=== PATIENT | male | born 1940 | race Caucasian/White ===

== ENCOUNTER 2018-01-27 15:38 | Inpatient (IN) | payer MEDICARE ==
[2018-01-27] MEDS ORDERED: HEPARIN SODIUM,PORCINE 5,000 UNIT/ML 1 ML VIAL IV ONE (23:05)
[2018-01-27 23:44] LABS: Basophils % (A) 0 %; Eosinophils # (A) 0.2 k/uL (0-0.7); Eosinophils % (A) 4 %; HCT 35.1 % (39.0-53.0); HGB 11.4 gm/dL (13.0-17.5); Hypochromasia Slight; Lymphocytes # (A) 0.7 k/uL (1.0-4.8); Lymphocytes % (A) 11 %; MCH 29.1 pg (25.0-35.0); MCHC 32.3 g/dL (31.0-37.0); Monocytes # (A) 0.5 k/uL (0-1.0); Monocytes % (A) 8 %; Neutrophils # (A) 4.8 k/uL (1.3-7.7); Neutrophils % (A) 75 %; Platelet Count 159 k/uL (150-450); RDW 14.3 % (11.5-15.5); WBC 6.4 k/uL (3.8-10.6)
[2018-01-28] MEDS: HEPARIN SODIUM,PORCINE/D5W PMX 25,000 UNIT in DEXTROSE/WATER 1 500ML.BAG IV SCH ×2 (00:13→17:33)
[2018-01-28] MEDS ORDERED: ALBUTEROL NEBULIZED 2.5 MG/3 ML INHALATION PRN (02:30)
[2018-01-28] MEDS ORDERED: ACETAMINOPHEN TAB 325 MG TAB PO PRN (02:36)
[2018-01-28] MEDS ORDERED: MAGNESIUM HYDROXIDE 2,400 MG/10 ML CUP PO PRN (02:37)
[2018-01-28] MEDS ORDERED: CALCIUM CARBONATE 500 MG CHEWABLE PO PRN (02:37)
[2018-01-28] MEDS: INSULIN ASPART 100 UNIT/ML 1 ML 10 ML VIAL SQ SCH ×4 (06:35→21:07)
[2018-01-28 06:44] LABS: Glucose,Whole Blood 134 mg/dL (75-99)
[2018-01-28 06:51] LABS: Basophils % (A) 0 %; Eosinophils # (A) 0.3 k/uL (0-0.7); Eosinophils % (A) 4 %; HCT 36.7 % (39.0-53.0); HGB 11.7 gm/dL (13.0-17.5); Lymphocytes # (A) 0.6 k/uL (1.0-4.8); Lymphocytes % (A) 9 %; MCH 28.1 pg (25.0-35.0); MCHC 31.8 g/dL (31.0-37.0); MCV 88.5 fL (80.0-100.0); Mean Platelet Volume 7.5; Monocytes # (A) 0.5 k/uL (0-1.0); Monocytes % (A) 8 %; Neutrophils # (A) 5.4 k/uL (1.3-7.7); Neutrophils % (A) 78 %; Platelet Count 174 k/uL (150-450); RBC 4.15 m/uL (4.30-5.90); RDW 14.1 % (11.5-15.5)
[2018-01-28 06:58] LABS: INR 1.1 (<1.2); Partial Thromboplastin Time 35.7 sec (22.0-30.0); Prothrombin Time 10.9 sec (9.0-12.0)
[2018-01-28 07:00] LABS: ALT 47 U/L (21-72); AST 28 U/L (17-59); Albumin 3.5 g/dL (3.5-5.0); Alkaline Phosphatase 84 U/L (38-126); Anion Gap 13 mmol/L; Blood Urea Nitrogen 14 mg/dL (9-20); Calcium 8.9 mg/dL (8.4-10.2); Carbon Dioxide 22 mmol/L (22-30); Chloride 107 mmol/L (98-107); Glucose 137 mg/dL (74-99); Potassium 4.2 mmol/L (3.5-5.1); Sodium 142 mmol/L (137-145); Total Bilirubin 1.6 mg/dL (0.2-1.3); Total Protein 6.1 g/dL (6.3-8.2)
[2018-01-28] MEDS: HEPARIN SODIUM,PORCINE 5,000 UNIT/ML 1 ML VIAL IV PRN ×2 (07:03→13:30)
[2018-01-28] MEDS ORDERED: MD COMMUNICATION TO PHARMACY 1 EACH MISC PO ONE ×2 (08:27)
[2018-01-28] MEDS: ISOSORBIDE MONONITRATE ER 30 MG TAB.ER.24H PO SCH (08:28)
[2018-01-28] MEDS: LINAGLIPTIN 5 MG TABLET PO SCH (08:28)
[2018-01-28] MEDS: FAMOTIDINE 20 MG TAB PO SCH (08:28)
[2018-01-28] MEDS: FUROSEMIDE 40 MG TAB PO SCH (08:28)
[2018-01-28] MEDS: ATORVASTATIN 40 MG TAB PO SCH (08:28)
[2018-01-28] MEDS: ASPIRIN 81 MG PO SCH (08:28)
[2018-01-28] MEDS: METOPROLOL SUCCINATE (ER) 50 MG TAB.ER.24H PO SCH (08:28)
[2018-01-28] MEDS: LISINOPRIL 10 MG TAB PO SCH ×2 (08:28→20:13)
[2018-01-28 09:53] LABS: Magnesium 1.7 mg/dL (1.6-2.3)
--- NOTE | 2018-01-28 10:40 | P.GSCN ---
History of Present Illness Consult date: 01/28/18 Reason for Consult: Coronary artery disease, moderate to severe mitral valve regurgitation. Evaluate for myocardial revascularization and mitral valve repair/replacement surgery. Requesting physician: Maximino Fernando History of present illness: This is a 77-year-old gentleman who is followed by Dr. Robledo on an outpatient basis. 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 Over the last 3 months the patient has had complaints of shortness of breath with activity. During the cold weather he reports that the shortness of breath is worse and he gets episodes of dry heaves. On 01/21/2018 after eating cucumber he developed an episode of chest pain. The chest pain was associated with some shortness of breath, which became worse throughout the day and he felt he needed to seek medical assistance. He denies any vomiting, sweating, dizziness, or loss of bowel or bladder function. On presentation to the emergency department a 12-lead EKG was completed which showed him to be in atrial fibrillation with RVR. His labs demonstrated a troponin less than 0.017 , BNP 965, WBC count 12.9, hemoglobin 12.4, and a creatinine level of 1.01. A 2 -D echocardiogram was completed which showed severe central mitral valve regurgitation, a left ventricular to be dilated with an ejection fraction of around 50-55% and mild tricuspid valve regurgitation. Subsequently due to his presenting symptoms and history of coronary artery disease the patient underwent a heart catheterization on 01/26/2018 which demonstrated a 60-70% stenosis involving his circumflex coronary artery, and 80% stenosis of his right coronary artery, and mild nonobstructive coronary artery disease to his left anterior descending coronary artery. Also during heart catheterization a left ventriculogram was completed which showed him to have an ejection fraction around 50-55% with severe mitral valve regurgitation. Due to the patient's presenting symptoms, history of coronary artery disease and his cardiac catheterization results a consult was placed to Dr. Fabricio Spicer from cardiothoracic surgery. Review of Systems A 14 point review of system was completed and was negative except as mentioned in the HPI. 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.), COPD , Diabetes Mellitus, Eye Disorder (Cataracts), GI Bleed (History of GI bleed, received blood products.), Hyperlipidemia, Hypertension, Osteoarthritis (OA), Prostate Disorder Additional Past Medical History / Comment(s): New onset of afib since admission to [facility] on 01/21/18 History of Any Multi-Drug Resistant Organisms: None Reported Past Surgical History: Heart Catheterization, Heart Catheterization With Stent, Joint Replacement, Orthopedic Surgery, Tonsillectomy Additional Past Surgical History / Comment(s): Right shoulder surgery, left knee replacement, colonoscopy with polypectomy, skin biopsy, cardiac stents X2 Past Anesthesia/Blood Transfusion Reactions: No Reported Reaction Date of Last Stent Placement:: unknown Past Psychological History: No Psychological Hx Reported Smoking Status: Former smoker (Quit 20 years ago.) Past Alcohol Use History: Rare (Maybe drinks one 6 pack of beer per year. ) Past Drug Use History: None Reported - Past Family History Mother Family Medical History: Asthma, COPD Father Family Medical History: Myocardial Infarction ([place]) (Myocardial infarction in his 50s.) Medications and Allergies Home Medications Medication Instructions Recorded Confirmed Type Atorvastatin [Lipitor] 40 mg PO HS 01/27/18 01/27/18 History Benazepril HCl 10 mg PO HS 01/27/18 01/27/18 History Cholecalciferol (Vitamin D3) 2,000 unit PO HS 01/27/18 01/27/18 History [Vitamin D3] Magnesium Oxide [Mag-Ox] 400 mg PO 01/27/18 01/27/18 History Metoprolol Succinate (ER) [Toprol 50 mg PO HS 01/27/18 01/27/18 History Xl] Tamsulosin [Flomax] 0.8 mg PO HS 01/27/18 01/27/18 History glipiZIDE/METFORMIN HCL 2 tab PO HS 01/27/18 01/27/18 History [glipiZIDE/METFORMIN HCL 2.5-500 mg] sitaGLIPtin [Januvia] 100 mg PO HS 01/27/18 01/27/18 History Allergies Allergy/AdvReac Type Severity Reaction Status Date / Time No Known Allergies Allergy Verified 01/27/18 23:01 Surgical - Exam Vital Signs Temp Pulse Resp BP Pulse Ox 97.5 F L 79 18 148/72 97 01/27/18 22:11 01/27/18 22:11 01/27/18 22:11 01/27/18 22:11 01/27/18 22:11 - General well developed, well nourished, no distress, no pain, obese - Eyes PERRL, normal ocular movement - ENT normal pinna, normal nares, normal mucosa, no hearing loss, no congestion, poor half-way, dentures (Partials.) - Neck No lymphadenopathy, neck is supple. no masses, no bruits, trachea midline, no venous distension - Respiratory Lung sounds essentially clear throughout, diminished was bilateral bases. Respirations are symmetrical and nonlabored. Oxygen saturation on room air are 97%. - Cardiovascular Regular rhythm and rate. S1 and S2 present, murmur present 2/6 to his left sternal border fifth intercostal space. Remote telemetry showing atrial fibrillation heart rate 80. No edema present. - Abdomen Abdomen soft, nontender nondistended. Active bowel sounds all 4 abdominal quadrants. No organomegaly. No guarding or rigidity. - Genitourinary Deferred - Rectum deferred - Integumentary no rash, no growths, no abnormal pigmentation - Neurologic normal coordination, normal sensation - Musculoskeletal normal gait, normal posture - Psychiatric oriented to time, oriented to person, oriented to place, speech is normal, memory intact Results - Labs 01/28/18 06:10 01/28/18 06:10 Abnormal Lab Results - Last 24 Hours (Table) 01/27/18 01/28/18 01/28/18 Range/Units 23:25 06:10 06:10 RBC 3.90 L 4.15 L (4.30-5.90) m/uL Hgb 11.4 L 11.7 L (13.0-17.5) gm/dL Hct 35.1 L 36.7 L (39.0-53.0) % Lymphocytes # 0.7 L 0.6 L (1.0-4.8) k/uL APTT 35.7 H (22.0-30.0) sec Glucose (74-99) mg/dL POC Glucose (mg/dL) (75-99) mg/dL Total Bilirubin (0.2-1.3) mg/dL Total Protein (6.3-8.2) g/dL 01/28/18 01/28/18 Range/Units 06:10 06:33 RBC (4.30-5.90) m/uL Hgb (13.0-17.5) gm/dL Hct (39.0-53.0) % Lymphocytes # (1.0-4.8) k/uL APTT (22.0-30.0) sec Glucose 137 H (74-99) mg/dL POC Glucose (mg/dL) 134 H (75-99) mg/dL Total Bilirubin 1.6 H (0.2-1.3) mg/dL Total Protein 6.1 L (6.3-8.2) g/dL Diabetes panel 01/28/18 Range/Units 06:10 Sodium 142 (137-145) mmol/L Potassium 4.2 (3.5-5.1) mmol/L Chloride 107 (98-107) mmol/L Carbon Dioxide 22 (22-30) mmol/L BUN 14 (9-20) mg/dL Creatinine 0.73 (0.66-1.25) mg/dL Glucose 137 H (74-99) mg/dL Calcium 8.9 (8.4-10.2) mg/dL AST 28 (17-59) U/L ALT 47 (21-72) U/L Alkaline Phosphatase 84 (38-126) U/L Total Protein 6.1 L (6.3-8.2) g/dL Albumin 3.5 (3.5-5.0) g/dL Calcium panel 01/28/18 Range/Units 06:10 Calcium 8.9 (8.4-10.2) mg/dL Albumin 3.5 (3.5-5.0) g/dL Pituitary panel 01/28/18 Range/Units 06:10 Sodium 142 (137-145) mmol/L Potassium 4.2 (3.5-5.1) mmol/L Chloride 107 (98-107) mmol/L Carbon Dioxide 22 (22-30) mmol/L BUN 14 (9-20) mg/dL Creatinine 0.73 (0.66-1.25) mg/dL Glucose 137 H (74-99) mg/dL Calcium 8.9 (8.4-10.2) mg/dL Adrenal panel 01/28/18 Range/Units 06:10 Sodium 142 (137-145) mmol/L Potassium 4.2 (3.5-5.1) mmol/L Chloride 107 (98-107) mmol/L Carbon Dioxide 22 (22-30) mmol/L BUN 14 (9-20) mg/dL Creatinine 0.73 (0.66-1.25) mg/dL Glucose 137 H (74-99) mg/dL Calcium 8.9 (8.4-10.2) mg/dL Total Bilirubin 1.6 H (0.2-1.3) mg/dL AST 28 (17-59) U/L ALT 47 (21-72) U/L Alkaline Phosphatase 84 (38-126) U/L Total Protein 6.1 L (6.3-8.2) g/dL Albumin 3.5 (3.5-5.0) g/dL - Imaging Additional studies: Cardiac catheterization films, 2-D echocardiogram films and PATTIE films were reviewed by Dr. Juice Koehler. Assessment and Plan (1) Hypertension Current Visit: Yes Status: Acute Code(s): I10 - ESSENTIAL (PRIMARY) HYPERTENSION SNOMED Code(s): 35477660 (2) Hyperlipidemia Current Visit: Yes Status: Acute Code(s): E78.5 - HYPERLIPIDEMIA, UNSPECIFIED SNOMED Code(s): 37680525 (3) Presence of stent in coronary artery in patient with coronary artery disease Current Visit: Yes Status: Acute Code(s): I25.10 - ATHSCL HEART DISEASE OF [place] CORONARY ARTERY W/O ANG PCTRS; Z95.5 - PRESENCE OF CORONARY ANGIOPLASTY IMPLANT AND GRAFT SNOMED Code(s): 819035592 (4) Severe mitral regurgitation by prior echocardiogram Current Visit: Yes Status: Acute Code(s): I34.0 - NONRHEUMATIC MITRAL (VALVE ) INSUFFICIENCY SNOMED Code(s): 23391650 (5) Diabetes mellitus type 2 in obese Current Visit: Yes Status: Acute Code(s): E11.69 - TYPE 2 DIABETES MELLITUS WITH OTHER SPECIFIED COMPLICATION; E66.9 - OBESITY, UNSPECIFIED SNOMED Code(s) : 06067158 (6) Enlarged prostate Current Visit: Yes Status: Acute Code(s): N40.0 - BENIGN PROSTATIC HYPERPLASIA WITHOUT LOWER URINRY TRACT SYMP SNOMED Code(s): 552851012 (7) Personal history of nicotine dependence Current Visit: Yes Status: Acute Code(s): Z87.891 - PERSONAL HISTORY OF NICOTINE DEPENDENCE SNOMED Code(s): 30986093 (8) Asthma Current Visit: Yes Status: Acute Code(s): J45.909 - UNSPECIFIED ASTHMA, UNCOMPLICATED SNOMED Code(s): 345538776 (9) COPD (chronic obstructive pulmonary disease) Current Visit: Yes Status: Acute Code(s): J44.9 - CHRONIC OBSTRUCTIVE PULMONARY DISEASE, UNSPECIFIED SNOMED Code(s): 34067879 Plan: The patient was seen and examined. His chart and diagnostics were reviewed. He was seen and examined by Dr. Juice Koehler from cardiothoracic surgery. Preoperative teaching was initiated. Preoperative diagnostics ordered. Continue to maximize medical therapy, continue aspirin, statin, heparin drip, James inhibitor and beta lencho. After his preoperative diagnostics have been obtained and reviewed, they will be discussed with the patient and he will be scheduled for myocardial revascularization with mitral valve repair/replacement. Thank you Dr. Fernando for this consult and we look forward to working with you in the care of your patient. Time with Patient: Greater than 30
--- NOTE | 2018-01-28 10:52 | P.CNPUL ---
History of Present Illness Consult date: 01/28/18 Requesting physician: Radha Welsh Reason for consult: COPD Chief complaint: SOB History of present illness: Bird Maria~is a 77 y.o.~male~~being seen examined and evaluated today for consultation. This patient was admitted to the [facility] on 01/21/18-after coming in with complaints of dyspnea with no relief from his inhaler and having significant chest pressure. Patient was found to be in A. fib with RVR and was started on a heparin drip. Patient did have an echocardiogram which revealed an EF of 55% with severe mitral regurg is RVSP P was 53 mmHg. He also had a Karlee scan stress test that was also abnormal and a PATTIE with heart catheter, please see those notes for details. Currently the patient was transfered to [facility] on 01/27/18 for a CABG and mitral valve replacement. Upon examination the patient's resting up in bed on room air. He denies any shortness of breath cough or congestion at this time. He denies any smoking history however did state that he did chew tobacco on occasion. He denies any episodes of snoring however states that his sleep each night is very restless and he wakes up a minimum of 6 times per night. The patient has never had a workup for obstructive sleep apnea. Patient also states that he has had 2 previous surgeries 1 on his knee and shoulders and had no problems with anesthesiology, or waking up from surgery. Education has been provided to the patient on the extent of the surgery as well as education on mechanical ventilation intubation and extubation with possible best case scenario outcomes and worst-case scenario comes. Patient verbalizes understanding. Review of Systems 14 point review of systems was completed and is negative unless noted above in the HPI. 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.), COPD , Diabetes Mellitus, Eye Disorder (Cataracts), GI Bleed (History of GI bleed, received blood products.), Hyperlipidemia, Hypertension, Osteoarthritis (OA), Prostate Disorder Additional Past Medical History / Comment(s): New onset of afib since admission to [facility] on 01/21/18 History of Any Multi-Drug Resistant Organisms: None Reported Past Surgical History: Heart Catheterization, Heart Catheterization With Stent, Joint Replacement, Orthopedic Surgery, Tonsillectomy Additional Past Surgical History / Comment(s): Right shoulder surgery, left knee replacement, colonoscopy with polypectomy, skin biopsy, cardiac stents X2 Past Anesthesia/Blood Transfusion Reactions: No Reported Reaction Date of Last Stent Placement:: unknown Past Psychological History: No Psychological Hx Reported Smoking Status: Former smoker (Quit 20 years ago.) Past Alcohol Use History: Rare (Maybe drinks one 6 pack of beer per year. ) Past Drug Use History: None Reported - Past Family History Mother Family Medical History: Asthma, COPD Father Family Medical History: Myocardial Infarction ([place]) (Myocardial infarction in his 50s.) Medications and Allergies Home Medications Medication Instructions Recorded Confirmed Type Atorvastatin [Lipitor] 40 mg PO HS 01/27/18 01/27/18 History Benazepril HCl 10 mg PO HS 01/27/18 01/27/18 History Cholecalciferol (Vitamin D3) 2,000 unit PO HS 01/27/18 01/27/18 History [Vitamin D3] Magnesium Oxide [Mag-Ox] 400 mg PO HS 01/27/18 01/27/18 History Metoprolol Succinate (ER) [Toprol 50 mg PO HS 01/27/18 01/27/18 History Xl] Tamsulosin [Flomax] 0.8 mg PO HS 01/27/18 01/27/18 History glipiZIDE/METFORMIN HCL 2 tab PO HS 01/27/18 01/27/18 History [glipiZIDE/METFORMIN HCL 2.5-500 mg] sitaGLIPtin [Januvia] 100 mg PO 01/27/18 01/27/18 History Allergies Allergy/AdvReac Type Severity Reaction Status Date / Time No Known Allergies Allergy Verified 01/27/18 23:01 Physical Exam Vitals: Vital Signs Temp Pulse Resp BP Pulse Ox 01/28/18 08:00 97.4 F L 90 18 122/70 97 01/28/18 04:00 97.3 F L 92 18 119/67 95 01/28/18 00:10 97.0 F L 63 18 122/73 97 01/27/18 22:11 97.5 F L 79 18 148/72 97 Intake and Output 01/27/18 01/28/18 01/28/18 22:59 06:59 14:59 Intake Total 350.013 Balance 350.013 Intake: Intake, IV Titration 170.013 Amount Heparin Sodium,Porcine/ 170.013 D5w Pmx 25,000 unit In Dextrose/Water 1 500ml. bag @ 12 UNITS/KG/HR 24. 88 mls/hr IV .Q20H6M SHAUNA Rx#:[id number] Oral 180 Other: Voiding Method Toilet Toilet # Voids 1 1 Weight 103.7 kg 103.1 kg CONSTITUTIONAL: Patient is seen in no acute distress HEENT: Head is normocephalic, atraumatic. Pupils are equal, conjunctiva clear. Neck is supple, trachea is midline. No JVD. RESPIRATORY: ~Lungs clear to auscultation. No wheezes, rales or rhonchi appreciated. Respirations are even and unlabored. CARDIOVASCULAR: ~Heart is irregular rate and rhythm. S1 and S2 are heard. No murmur. ~~~ GASTROINTESTINAL: ~Abdomen is soft, nontender, nondistended. Bowel sounds are positive. EXTREMITIES: ~No lower extremity edema is noted. Pedal pulses are palpable bilaterally. NEUROLOGICAL: ~Patient is alert and oriented 3. Speech is clear and interactive. No tremor is noted. Results - Laboratory Findings CBC and BMP: 01/28/18 06:10 01/28/18 06:10 PT/INR, D-dimer PT 10.9 sec (9.0-12.0) 01/28/18 06:10 INR 1.1 (<1.2) 01/28/18 06:10 Abnormal lab findings: Abnormal Labs 01/27/18 01/28/18 01/28/18 23:25 06:10 06:10 RBC 3.90 L 4.15 L Hgb 11.4 L 11.7 L Hct 35.1 L 36.7 L Lymphocytes # 0.7 L 0.6 L APTT 35.7 H Glucose POC Glucose (mg/dL) Total Bilirubin Total Protein HDL Cholesterol 01/28/18 01/28/18 01/28/18 06:10 06:33 08:58 RBC Hgb Hct Lymphocytes # APTT Glucose 137 H POC Glucose (mg/dL) 134 H Total Bilirubin 1.6 H Total Protein 6.1 L HDL Cholesterol 37 L Assessment and Plan Assessment: Assessment: Chest pain Severe mitral regurgitation CAD 80-90% stenosis of his right coronary artery 60-70% stenosis of the AV circumflex COPD Possible GHULAM Diabetes mellitus type 2 Hyperlipidemia Plan: Swathi Borrero reviewed from [facility] reviewed, suggestive of restrictive lung disease, however, without lung volumes and full PFT cannot definitively diagnose. ~Outpatient PFT and PSG recommended. ~Incentive spirometry and pulmonary hygiene. Medications have been reviewed and will be continued as ordered. Patient is currently on a heparin drip. Supplemental oxygen to maintain oxygen saturations greater than 90% if needed. GI and DVT prophylaxis. Patient will also benefit from an outpatient PSG once medically stable and discharged from the hospital. We will continue to monitor labs/results and adjust treatment as necessary. Thank you for this consultation we will continue to follow this patient with you. I performed an examination of the patient and discussed their management with the nurse practitioner. I have reviewed the nurse practitioner's note and agree with the documented findings and plan of care.
[2018-01-28 11:32] LABS: Glucose,Whole Blood 183 mg/dL (75-99)
--- NOTE | 2018-01-28 12:45 | XR ---
EXAMINATION TYPE: XR chest 2V DATE OF EXAM: 01/28/2018 COMPARISON: 01/29/2010 HISTORY: Preoperative evaluation TECHNIQUE: Frontal and lateral views of the chest are obtained. FINDINGS: There is a trace right pleural effusion, developed in the interim. Cardiac silhouette is e nlarged with minimal cephalization. No pneumothorax or sizable left pleural effusion. Osseous structu res are intact. IMPRESSION: Very mild pulmonary vascular congestion and trace right pleural effusion in combination with cardiomegaly may be attributable to early phase of congestive heart failure.
[2018-01-28] MEDS: MUPIROCIN 2% OINT 22 GM TUBE NASAL SCH ×2 (12:46→22:03)
[2018-01-28 12:58] LABS: Hemoglobin A1C 7.4 % (4.0-6.0)
--- NOTE | 2018-01-28 13:16 | US ---
EXAMINATION TYPE: US carotid duplex BILAT DATE OF EXAM: 01/28/2018 COMPARISON: NONE CLINICAL HISTORY: Preoperative cardiac surgery. Pre-OP CABG EXAM MEASUREMENTS: RIGHT: Peak Systolic Velocity (PSV) cm/sec ----- Right CCA: 79.0 ----- Right ICA: 106.4 ----- Right ECA: 137.6 ICA/CCA ratio: 1.3 RIGHT: End Diastole cm/sec ----- Right CCA: 17.5 ----- Right ICA: 20.8 ----- Right ECA: 7.7 LEFT: Peak Systolic Velocity (PSV) cm/sec ----- Left CCA: 99.0 ----- Left ICA: 124.2 ----- Left ECA: 72.3 ICA/CCA ratio: 1.3 LEFT: End Diastole cm/sec ----- Left CCA: 18.4 ----- Left ICA: 20.8 ----- Left ECA: 0.0 VERTEBRALS (direction of flow): Right Vertebral: Antegrade Left Vertebral: Antegrade Rhythm: Arrhythmia Heterogeneous plaque bilaterally with slightly elevated velocities IMPRESSION: 1. Slightly elevated left internal carotid artery peak systolic velocity with moderate grayscale plaq uing suggesting stenosis of approximately 50% as there is no abnormal elevation of the internal carot id artery to common carotid artery ratio. Right external carotid artery mild stenosis is also sonogra phically present. 2. Incidentally noted cardiac arrhythmia. Correlate with EKG.
[2018-01-28] MEDS: NYSTATIN 100,000 UNIT/ML SUSP 500,000 UNIT/5 ML CUP PO SCH ×3 (13:30→20:13)
[2018-01-28 16:47] LABS: Glucose,Whole Blood 146 mg/dL (75-99)
[2018-01-28 18:15] LABS: Hepatitis A Antibody IgM Non-Reactive (Non-Reactive); Hepatitis B Core IgM Non-Reactive (Non-Reactive)
--- NOTE | 2018-01-28 18:22 | PN ---
PROGRESS NOTE This patient was transferred from [facility]. Patient has 2-vessel coronary artery disease and severe mitral regurgitation. Patient's mitral regurgitation appears to be functional; no significant primary abnormality in the mitral leaflets was noted. Patient is going to undergo coronary artery bypass surgery and mitral valve replacement or repair. Patient's blood pressure is 118/73 mmHg. First and second heart sounds are normal. There is a soft systolic murmur heard at the apex. Lungs are clinically clear to auscultation and percussion. We will continue the current medications. MMODL / IJN: [id number] /
--- NOTE | 2018-01-28 18:38 | P.HPIM ---
History of Present Illness H&P Date: 01/28/18 Chief Complaint: CABG with valvular repair This is a 69 HO pleasant gentleman patient of Dr. Cardoso with underlying history of CAD with prior PCI stent placement, hypertension hypertensive cardiovascular disease hyperlipidemia and diabetes mellitus type 2 asthma OR arthritis COPD admitted to [facility] and was found on imaging studies secondary to his chest pain new onset atrial fibrillation with RVR and shortness of breath, cardiac cath performed 01/26/2018 showing 80% stenosis of RCA, 70% stenoses of the left circumflex involving the AV groove circumflex ostial portion, severe mitral regurgitation, dilated left ventricle ejection fraction 50-55%. He was transferred to [facility] for mitral valve placement and CABG 2 vessel critical stenosis involving left circumflex and right coronary artery. CABG most likely would be anticipated to be done January 30 He was seen at [facility] by , for pulmonary clearance, pertinent laboratories creatinine 1.01 hemoglobin 12.4 TSH 0.93 hemoglobin A1c not done,. Patient currently is on basal bolus Levemir and premeal coverage, instead of home oral medication, continue on Januvia 100 mg at bedtime, cardiology to see, Dr. Marte for consult and consult to Dr. Spicer cardiothoracic, Dr. Salas cardiology. He should maintain IV heparin Review of Systems Constitutional: Reports as per HPI, Denies anorexia, Denies chills, Denies chronic headaches, Denies chronic pain, Denies daytime sleepiness, Denies fatigue, Denies fever, Denies lethargy, Denies malaise, Denies night sweats, Denies poor appetite, Denies sweats, Denies weakness, Denies weight gain, Denies weight loss Ears, nose, mouth and throat: Reports as per HPI, Denies ant. neck pain, Denies bleeding gums, Denies dental pain, Denies dysphagia, Denies epistaxis, Denies headache, Denies hoarseness, Denies mouth pain, Denies nasal congestion, Denies nasal discharge, Denies neck fullness/pressure, Denies neck lump, Denies nose pain, Denies odynophagia, Denies post-nasal drip, Denies sinus pain, Denies sinus pressure, Denies swelling in mouth, Denies swelling in throat, Denies sore throat, Denies vertigo, Denies voice changes Cardiovascular: Reports as per HPI, Denies chest pain, Denies claudication, Denies decreased exercise tolerance, Denies dyspnea on exertion, Denies edema, Denies high blood pressure, Denies irregular heart beat, Denies leg edema, Denies lightheadedness, Denies orthopnea, Denies palpitations, Denies paroxysmal nocturnal dyspnea, Denies phlebitis, Denies rapid heart beat, Denies shortness of breath, Denies syncope Respiratory: Reports as per HPI, Denies congestion, Denies cough, Denies cough with sputum, Denies dyspnea, Denies excessive sputum, Denies hemoptysis, Denies home oxygen, Denies pain, Denies pain on inspiration, Denies pleurisy, Denies respiratory infections, Denies sleep apnea, Denies snoring, Denies wheezing Gastrointestinal: Reports as per HPI, Denies abdominal pain, Denies belching, Denies bloating, Denies BRBPR, Denies change in bowel habits, Denies coffee ground emesis, Denies constipation, Denies diarrhea, Denies dyspepsia, Denies early satiety, Denies excessive gas, Denies heartburn, Denies hematemesis, Denies hematochezia, Denies indigestion, Denies jaundice, Denies lactose intolerance, Denies loss of appetite, Denies melena, Denies nausea, Denies vomiting Genitourinary: Reports as per HPI, Denies decreased libido, Denies difficulties fathering child, Denies discharge, Denies dysuria, Denies erectile dysfunction, Denies flank pain, Denies genital pain, Denies genital sores, Denies hematuria, Denies impotence, Denies incontinence, Denies kidney stones, Denies nocturia, Denies polyuria, Denies testicular lump, Denies testicular pain, Denies urinary frequency, Denies urinary hesitancy, Denies urinary retention Musculoskeletal: Reports as per HPI Integumentary: Reports as per HPI, Denies acne, Denies boils, Denies brittle nails, Denies change in hair/nails, Denies color changes, Denies darkening of skin, Denies depigmentation, Denies dryness, Denies foot/leg ulcers, Denies growths, Denies hirsutism, Denies lesions, Denies onychomycosis, Denies pruritus , Denies rash, Denies sores, Denies striae, Denies unusual bruising, Denies wounds Neurological: Reports as per HPI, Denies aphasia, Denies ataxia, Denies balance difficulties, Denies burning pain, Denies change in mentation, Denies change in smell/taste, Denies change in speech, Denies confusion, Denies convulsions, Denies double vision, Denies gait dysfunction, Denies head injury, Denies headaches, Denies hearing difficulties, Denies lack of coordination, Denies loss of vision, Denies memory loss, Denies migraines, Denies motor disturbance, Denies numbness, Denies paralysis, Denies paresthesias, Denies seizures, Denies sensory deficit, Denies spasticity, Denies syncope, Denies tic, Denies tingling , Denies transient paralysis, Denies tremors, Denies vertigo, Denies weakness, Denies visual changes Psychiatric: Reports as per HPI, Denies anhedonia, Denies anxiety, Denies anxiety attacks, Denies change in appetite, Denies change in libido, Denies change in sleep habits, Denies confusion, Denies depression, Denies difficulty concentrating, Denies disorientation, Denies hallucinations, Denies hopelessness , Denies hypersomnia, Denies insomnia, Denies irritability, Denies memory loss, Denies mood swings, Denies paranoia, Denies sadness/tearfulness, Denies sleep disturbances, Denies suicidal ideation 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.), COPD , Diabetes Mellitus, Eye Disorder (Cataracts), GI Bleed (History of GI bleed, received blood products.), Hyperlipidemia, Hypertension, Osteoarthritis (OA), Prostate Disorder Additional Past Medical History / Comment(s): New onset of afib since admission to [facility] on 01/21/18 History of Any Multi-Drug Resistant Organisms: None Reported Past Surgical History: Heart Catheterization, Heart Catheterization With Stent, Joint Replacement, Orthopedic Surgery, Tonsillectomy Additional Past Surgical History / Comment(s): Right shoulder surgery, left knee replacement, colonoscopy with polypectomy, skin biopsy, cardiac stents X2 Past Anesthesia/Blood Transfusion Reactions: No Reported Reaction Date of Last Stent Placement:: unknown Past Psychological History: No Psychological Hx Reported Smoking Status: Former smoker (Quit 20 years ago.) Past Alcohol Use History: Rare (Maybe drinks one 6 pack of beer per year. ) Past Drug Use History: None Reported - Past Family History Mother Family Medical History: Asthma, COPD Father History Unknown: Yes (Mother 76 from COPD, and diabetes mellitus type 2, father at 58 secondary to CO, one sister 89 years old, for doctors to them with diabetes mellitus type 2) Family Medical History: Myocardial Infarction (CO) (Myocardial infarction in his 50s.) Medications and Allergies Home Medications Medication Instructions Recorded Confirmed Type Atorvastatin [Lipitor] 40 mg PO HS 01/27/18 01/27/18 History Benazepril HCl 10 mg PO HS 01/27/18 01/27/18 History Cholecalciferol (Vitamin D3) 2,000 unit PO HS 01/27/18 01/27/18 History [Vitamin D3] Magnesium Oxide [Mag-Ox] 400 mg PO HS 01/27/18 01/27/18 History Metoprolol Succinate (ER) [Toprol 50 mg PO HS 01/27/18 01/27/18 History Xl] Tamsulosin [Flomax] 0.8 mg PO HS 01/27/18 01/27/18 History glipiZIDE/METFORMIN HCL 2 tab PO HS 01/27/18 01/27/18 History [glipiZIDE/METFORMIN HCL 2.5-500 mg] sitaGLIPtin [Januvia] 100 mg PO HS 01/27/18 01/27/18 History Allergies Allergy/AdvReac Type Severity Reaction Status Date / Time No Known Allergies Allergy Verified 01/27/18 23:01 Physical Exam Vitals: Vital Signs Temp Pulse Resp BP Pulse Ox 01/28/18 12:00 97.3 F L 66 16 118/73 96 01/28/18 08:00 97.4 F L 90 18 122/70 97 01/28/18 04:00 97.3 F L 92 18 119/67 95 01/28/18 00:10 97.0 F L 63 18 122/73 97 01/27/18 22:11 97.5 F L 79 18 148/72 97 Intake and Output 01/27/18 01/28/18 01/28/18 22:59 06:59 14:59 Intake Total 350.013 Balance 350.013 Intake: Intake, IV Titration 170.013 Amount Heparin Sodium,Porcine/ 170.013 D5w Pmx 25,000 unit In Dextrose/Water 1 500ml. bag @ 12 UNITS/KG/HR 24. 88 mls/hr IV .Q20H6M [facility] Rx#:[id number] Oral 180 Other: Voiding Method Toilet Toilet # Voids 1 1 Weight 103.7 kg 103.1 kg - Constitutional General appearance: cooperative, no acute distress - EENT Eyes: anicteric sclerae, EOMI, PERRLA, dentition normal, normal appearance ENT: NA/AT, normal oropharynx - Neck Neck: no lymphadenopathy, normal ROM, no other, no rigidity, no stridor, no thyromegaly - Respiratory Respiratory: bilateral: CTA, negative: diminished, dullness, rales, rhonchi - Cardiovascular Rhythm: regular Heart sounds: normal: S1, S2 Abnormal Heart Sounds: no systolic murmur, no diastolic murmur, no rub, no S3 Gallop, no S4 Gallop, no click, no other - Gastrointestinal General gastrointestinal: normal bowel sounds, soft - Integumentary Integumentary: normal, normal turgor - Neurologic Neurologic: CNII-XII intact - Musculoskeletal Musculoskeletal: gait normal, strength equal bilaterally - Psychiatric Psychiatric: A&O x's 3, appropriate affect, intact judgment & insight Results CBC & Chem 7: 01/28/18 06:10 01/28/18 06:10 Labs: Abnormal Lab Results - Last 24 Hours (Table) 01/27/18 01/28/18 01/28/18 Range/Units 23:25 06:10 06:10 RBC 3.90 L 4.15 L (4.30-5.90) m/uL Hgb 11.4 L 11.7 L (13.0-17.5) gm/dL Hct 35.1 L 36.7 L (39.0-53.0) % Lymphocytes # 0.7 L 0.6 L (1.0-4.8) k/uL APTT 35.7 H (22.0-30.0) sec Glucose (74-99) mg/dL POC Glucose (mg/dL) (75-99) mg/dL Total Bilirubin (0.2-1.3) mg/dL Total Protein (6.3-8.2) g/dL HDL Cholesterol (40-60) mg/dL 01/28/18 01/28/18 01/28/18 Range/Units 06:10 06:33 08:58 RBC (4.30-5.90) m/uL Hgb (13.0-17.5) gm/dL Hct (39.0-53.0) % Lymphocytes # (1.0-4.8) k/uL APTT (22.0-30.0) sec Glucose 137 H (74-99) mg/dL POC Glucose (mg/dL) 134 H (75-99) mg/dL Total Bilirubin 1.6 H (0.2-1.3) mg/dL Total Protein 6.1 L (6.3-8.2) g/dL HDL Cholesterol 37 L (40-60) mg/dL 01/28/18 Range/Units 11:22 RBC (4.30-5.90) m/uL Hgb (13.0-17.5) gm/dL Hct (39.0-53.0) % Lymphocytes # (1.0-4.8) k/uL APTT (22.0-30.0) sec Glucose (74-99) mg/dL POC Glucose (mg/dL) 183 H (75-99) mg/dL Total Bilirubin (0.2-1.3) mg/dL Total Protein (6.3-8.2) g/dL HDL Cholesterol (40-60) mg/dL Laboratory Results WBC 7.0 k/uL (3.8-10.6) 01/28/18 06:10 RBC 4.15 m/uL (4.30-5.90) L 01/28/18 06:10 Hgb 11.7 gm/dL (13.0-17.5) L 01/28/18 06:10 Hct 36.7 % (39.0-53.0) L 01/28/18 06:10 MCV 88.5 fL (80.0-100.0) 01/28/18 06:10 MCH 28.1 pg (25.0-35.0) 01/28/18 06:10 MCHC 31.8 g/dL (31.0-37.0) 01/28/18 06:10 RDW 14.1 % (11.5-15.5) 01/28/18 06:10 Plt Count 174 k/uL (150-450) 01/28/18 06:10 Neutrophils % 78 % 01/28/18 06:10 Lymphocytes % 9 % 01/28/18 06:10 Monocytes % 8 % 01/28/18 06:10 Eosinophils % 4 % 01/28/18 06:10 Basophils % 0 % 01/28/18 06:10 Neutrophils # 5.4 k/uL (1.3-7.7) 01/28/18 06:10 Lymphocytes # 0.6 k/uL (1.0-4.8) L 01/28/18 06:10 Monocytes # 0.5 k/uL (0-1.0) 01/28/18 06:10 Eosinophils # 0.3 k/uL (0-0.7) 01/28/18 06:10 Basophils # 0.0 k/uL (0-0.2) 01/28/18 06:10 Hypochromasia Slight 01/27/18 23:25 PT 10.9 sec (9.0-12.0) 01/28/18 06:10 INR 1.1 (<1.2) 01/28/18 06:10 APTT 43.1 sec (22.0-30.0) H 01/28/18 12:51 Sodium 142 mmol/L (137-145) 01/28/18 06:10 Potassium 4.2 mmol/L (3.5-5.1) 01/28/18 06:10 Chloride 107 mmol/L (98-107) 01/28/18 06:10 Carbon Dioxide 22 mmol/L (22-30) 01/28/18 06:10 Anion Gap 13 mmol/L 01/28/18 06:10 BUN 14 mg/dL (9-20) 01/28/18 06:10 Creatinine 0.73 mg/dL (0.66-1.25) 01/28/18 06:10 Est GFR (CKD-EPI)AfAm >90 (>60 ml/min/1.73 sqM) 01/28/18 06:10 Est GFR (CKD-EPI)NonAf 89 (>60 ml/min/1.73 sqM) 01/28/18 06:10 Glucose 137 mg/dL (74-99) H 01/28/18 06:10 POC Glucose (mg/dL) 146 mg/dL (75-99) H 01/28/18 16:38 POC Glu Social Psychologist ID Allison Miller 01/28/18 16:[address] Glu mg/dL 166 01/28/18 06:10 Hemoglobin A1c 7.4 % (4.0-6.0) H 01/28/18 06:10 Calcium 8.9 mg/dL (8.4-10.2) 01/28/18 06:10 Magnesium 1.7 mg/dL (1.6-2.3) 01/28/18 08:58 Total Bilirubin 1.6 mg/dL (0.2-1.3) H 01/28/18 06:10 AST 28 U/L (17-59) 01/28/18 06:10 ALT 47 U/L (21-72) 01/28/18 06:10 Alkaline Phosphatase 84 U/L (38-126) 01/28/18 06:10 Troponin I <0.012 ng/mL (0.000-0.034) 01/28/18 08:58 NT-Pro-B Natriuret Pep 1200 pg/mL 01/28/18 08:58 Total Protein 6.1 g/dL (6.3-8.2) L 01/28/18 06:10 Albumin 3.5 g/dL (3.5-5.0) 01/28/18 06:10 Triglycerides 73 mg/dL (<150) 01/28/18 08:58 Cholesterol 121 mg/dL (<200) 01/28/18 08:58 LDL Cholesterol, Calc 69 mg/dL (0-99) 01/28/18 08:58 HDL Cholesterol 37 mg/dL (40-60) L 01/28/18 08:58 TSH 0.878 mIU/L (0.465-4.680) 01/28/18 08:58 Thrombosis Risk Factor Assmnt - Choose All That Apply Any of the Below Risk Factors Present?: Yes Each Factor Represents 1 point: Abnormal pulmonary function (COPD), Obesity ( BMI >25) Other Risk Factors: Yes Each Risk Factor Represents 3 Points: Age 75 years or older Thrombosis Risk Factor Assessment Total Risk Factor Score: 5 Thrombosis Risk Factor Assessment Level: High Risk Assessment and Plan Plan: 1. Severe mitral regurgitation and CAD with 2 vessel critical stenosis requiring CABG, and mitral valve replacement, Dr. Escobar from cardiovascular has been consulted, entry level lab technician following, vein mapping has been performed, patient is optimized for pulmonary status including expected ventilatory support post CABG, patient would have his diabetes mellitus optimized, A1c to be done incentive spirometry 2. Diabetes mellitus type 2 previous oral medications have been discontinued mainly Glucotrol and metformin, continue on Janumet, Levemir at 10 units every at bedtime, and pre-meal NovoLog correctional scale until diet has been optimized postop 3 New onset atrial fibrillation currently on IV heparin and beta lencho 4 CK D stage II with baseline creatinine 1.01, continue to monitor. Debility, 5CAD with previous PCI and stent placement with recent cardiac cath 01/26/[address] Reynolds found to have 60-70% stenosis involving left circumflex AV groove circumflex ostial portion, and RCA 80% stenosis mid RCA, EF 50-55% left ventricle end-diastolic pressure 14 severe mitral regurgitation. Continue lisinopril 10 mg twice a day, metoprolol 50 mg daily aspirin Lipitor 40 6 BPH without urinary tract symptomatology, Flomax will be started postop with the anticipation that he would have urinary complaints. 7 Asthma without any current exacerbation with COPD and when necessary nebulizer , incentive spirometry, 8 Hypertensive cardiovascular disease 9 History of skin cancer 10 Osteoarthritis (on any opiates prior to admission 7. Hyperlipidemia on Lipitor 40 mg daily GI prophylaxis DVT prophylaxis currently on IV heparin
[2018-01-28] MEDS: TAMSULOSIN 0.4 MG CAP.ER.24H PO SCH (20:13)
[2018-01-28 20:44] LABS: Glucose,Whole Blood 193 mg/dL (75-99)
[2018-01-28 20:59] LABS: Appearance,Urine Clear (Clear); Bilirubin,Urine Negative (Negative); Blood,Urine Negative (Negative); Color,Urine Light Yellow; Glucose,Urine (UA) Negative (Negative); Ketones,Urine Negative (Negative); Leukocyte Esterase,Urine Negative (Negative); Nitrite,Urine Negative (Negative); PH, Urine 5.5 (5.0-8.0); Protein,Urine Negative (Negative); Specific Gravity,Urine 1.005 (1.001-1.035)
[2018-01-28] MEDS: INSULIN DETEMIR 100 UNIT/ML 10 ML VIAL SQ SCH (21:07)
[2018-01-29 06:08] LABS: Glucose,Whole Blood 156 mg/dL (75-99)
[2018-01-29] MEDS: INSULIN ASPART 100 UNIT/ML 1 ML 10 ML VIAL SQ SCH ×5 (06:23→21:22)
[2018-01-29] MEDS ORDERED: PROPOFOL 1,000 MG in EMPTY BAG 1 BAG IV ONE (08:18)
[2018-01-29] MEDS ORDERED: SODIUM BICARB 8.4% 50 ML SYR (1 MEQ/ML) IV ONE (08:18)
[2018-01-29] MEDS: ATORVASTATIN 40 MG TAB PO SCH (09:01)
[2018-01-29] MEDS: ASPIRIN 81 MG PO SCH (09:01)
[2018-01-29] MEDS: METOPROLOL SUCCINATE (ER) 50 MG TAB.ER.24H PO SCH (09:02)
[2018-01-29] MEDS: ISOSORBIDE MONONITRATE ER 30 MG TAB.ER.24H PO SCH (09:02)
[2018-01-29] MEDS: LISINOPRIL 10 MG TAB PO SCH ×2 (09:02→21:22)
[2018-01-29] MEDS: FAMOTIDINE 20 MG TAB PO SCH (09:02)
[2018-01-29] MEDS: LINAGLIPTIN 5 MG TABLET PO SCH (09:02)
[2018-01-29] MEDS: FUROSEMIDE 40 MG TAB PO SCH (09:02)
[2018-01-29] MEDS: NYSTATIN 100,000 UNIT/ML SUSP 500,000 UNIT/5 ML CUP PO SCH ×4 (09:03→21:22)
[2018-01-29] MEDS: MUPIROCIN 2% OINT 22 GM TUBE NASAL SCH ×2 (09:03→22:12)
--- NOTE | 2018-01-29 09:42 | P.PN ---
Subjective Progress Note Date: 01/29/18 HPI: Bird Maria~is a 77 y.o.~male~~being seen examined and evaluated today for consultation. This patient was admitted to the [facility] on 01/21/18-after coming in with complaints of dyspnea with no relief from his inhaler and having significant chest pressure. Patient was found to be in A. fib with RVR and was started on a heparin drip. Patient did have an echocardiogram which revealed an EF of 55% with severe mitral regurg is RVSP P was 53 mmHg. He also had a Karlee scan stress test that was also abnormal and a PATTIE with heart catheter, please see those notes for details. Currently the patient was transfered to [facility] on 01/27/18 for a CABG and mitral valve replacement. Upon examination the patient's resting up in bed on room air. He denies any shortness of breath cough or congestion at this time. He denies any smoking history however did state that he did chew tobacco on occasion. He denies any episodes of snoring however states that his sleep each night is very restless and he wakes up a minimum of 6 times per night. The patient has never had a workup for obstructive sleep apnea. Patient also states that he has had 2 previous surgeries 1 on his knee and shoulders and had no problems with anesthesiology, or waking up from surgery. Education has been provided to the patient on the extent of the surgery as well as education on mechanical ventilation intubation and extubation with possible best case scenario outcomes and worst-case scenario comes. Patient verbalizes understanding. Interval History: 01/29/18- patient is being seen examined and evaluated today on rounds. He is resting up in bed on room air. CT is feeling well. Has been ambulating in the hallway. Has been utilizing his incentive spirometer and pulling volumes of approximately 1750 arousals. He denies any cough or congestion at this time. Patient is planned for a CABG tomorrow with cardiothoracic surgery. Preop workup has been completed. He is afebrile no further complaints. All labs and reports have been reviewed. Objective - Vital Signs Vital signs: Vital Signs Temp 98.1 F 01/29/18 08:00 Pulse 91 01/29/18 08:00 Resp 18 01/29/18 08:00 BP 150/88 05/10/18 08:00 Pulse Ox 96 01/29/18 08:00 Intake & Output 01/28/18 01/29/18 01/29/18 18:59 06:59 18:59 Intake Total 910.000 86.95 Output Total 600 Balance 310.000 86.95 Weight 101.4 kg Intake: Intake, IV Titration 500.000 86.95 Amount Heparin Sodium,Porcine/ 500.000 86.95 D5w Pmx 25,000 unit In Dextrose/Water 1 500ml. bag @ 12 UNITS/KG/HR 24. 88 mls/hr IV .Q20H6M [facility] Rx#:[id number] Oral 410 Output: Urine 600 Other: Voiding Method Toilet Toilet # Voids 1 - Exam CONSTITUTIONAL: Patient is seen in no acute distress HEENT: Head is normocephalic, atraumatic. Pupils are equal, conjunctiva clear. Neck is supple, trachea is midline. No JVD. RESPIRATORY: ~Lungs clear to auscultation. No wheezes, rales or rhonchi appreciated. Respirations are even and unlabored. CARDIOVASCULAR: ~Heart is irregular rate and rhythm. S1 and S2 are heard. No murmur. ~~~ GASTROINTESTINAL: ~Abdomen is soft, nontender, nondistended. Bowel sounds are positive. EXTREMITIES: ~No lower extremity edema is noted. Pedal pulses are palpable bilaterally. NEUROLOGICAL: ~Patient is alert and oriented 3. Speech is clear and interactive. No tremor is noted. - Labs CBC & Chem 7: 01/28/18 06:10 01/28/18 06:10 Labs: Abnormal Lab Results - Last 24 Hours (Table) 01/28/18 01/28/18 01/28/18 Range/Units 06:10 08:58 11:22 APTT (22.0-30.0) sec POC Glucose (mg/dL) 183 H (75-99) mg/dL Hemoglobin A1c 7.4 H (4.0-6.0) % HDL Cholesterol 37 L (40-60) mg/dL 01/28/18 01/28/18 01/28/18 Range/Units 12:51 16:38 19:27 APTT 43.1 H 48.2 H (22.0-30.0) sec POC Glucose (mg/dL) 146 H (75-99) mg/dL Hemoglobin A1c (4.0-6.0) % HDL Cholesterol (40-60) mg/dL 01/28/18 01/29/18 Range/Units 20:43 06:06 APTT (22.0-30.0) sec POC Glucose (mg/dL) 193 H 156 H (75-99) mg/dL Hemoglobin A1c (4.0-6.0) % HDL Cholesterol (40-60) mg/dL Microbiology - Last 24 Hours (Table) 01/28/18 20:18 Nasal Screen MRSA/MSSA (MEGAN) - Preliminary Nasal Swab 01/28/18 20:45 Urine Culture - Preliminary Urine,Voided Assessment and Plan Assessment: Assessment: Chest pain Severe mitral regurgitation CAD 80-90% stenosis of his right coronary artery 60-70% stenosis of the AV circumflex COPD Possible GHULAM Diabetes mellitus type 2 Hyperlipidemia Plan: Patient will be undergoing CABG planned for tomorrow. [place] reviewed from [facility] reviewed, suggestive of restrictive lung disease, however, without lung volumes and full PFT cannot definitively diagnose. ~Outpatient PFT and PSG recommended. ~Incentive spirometry and pulmonary hygiene. Medications have been reviewed and will be continued as ordered. Patient is currently on a heparin drip. Supplemental oxygen to maintain oxygen saturations greater than 90% if needed. GI and DVT prophylaxis. Patient will also benefit from an outpatient PSG once medically stable and discharged from the hospital. We will continue to monitor labs/results and adjust treatment as necessary. Thank you for this consultation we will continue to follow this patient with you. I performed an examination of the patient and discussed their management with the nurse practitioner. I have reviewed the nurse practitioner's note and agree with the documented findings and plan of care.
[2018-01-29 12:09] LABS: Glucose,Whole Blood 174 mg/dL (75-99)
--- NOTE | 2018-01-29 13:51 | P.PN ---
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 Patient is sitting up to the bedside chair. He is in no acute distress. He denies any complaints of shortness of breath, chest pain or nausea and vomiting. He reports that he has been ambulating in the hallway without difficulty. Questions answered regarding his preoperative teaching to the best of my ability. Objective - Vital Signs Vital signs: Vital Signs Temp 98.8 F 01/29/18 11:19 Pulse 94 01/29/18 11:19 Resp 18 01/29/18 11:19 BP 115/72 01/29/18 11:19 Pulse Ox 95 01/29/18 11:19 Intake & Output 01/28/18 01/29/18 01/29/18 18:59 06:59 18:59 Intake Total 910.000 86.95 240 Output Total 600 Balance 310.000 86.95 240 Weight 101.4 kg Intake: Intake, IV Titration 500.000 86.95 Amount Heparin Sodium,Porcine/ 500.000 86.95 D5w Pmx 25,000 unit In Dextrose/Water 1 500ml. bag @ 12 UNITS/KG/HR 24. 88 mls/hr IV .Q20H6M [facility] Rx#:[id number] Oral 410 240 Output: Urine 600 Other: Voiding Method Toilet Toilet Toilet # Voids 1 1 - Constitutional General appearance: Present: cooperative, no acute distress, obese - Respiratory Details: Lungs sounds essentially clear to his bilateral upper lobes, few scattered crackles to his bilateral bases. Respirations are symmetrical and nonlabored. Bedside FEV1 completed yesterday 01/28/2018 which was 52% of predicted. He is achieving 1000 L on his incentive spirometry. Oxygen saturation are 95% on room air. - Cardiovascular Details: Irregular rhythm with controlled rate. S1 and S2 present, 2/6 systolic murmur heard to his left sternal border fifth intercostal space. Remote telemetry showing atrial fib ablation heart rate 84, slight ST elevation noted in lead [address] depression noted in his V lead. - Gastrointestinal Gastrointestinal Comment(s): Abdomen is soft, nontender nondistended. Active bowel sounds all 4 abdominal quadrants. Tolerating oral intake. - Genitourinary Genitourinary Comment(s): Voiding clear urine output. - Integumentary Integumentary Comment(s): Skin is warm and dry. No clubbing or cyanosis present. No rash or abnormal pigmentation present. - Neurologic Neurologic: Present: CNII-XII intact - Musculoskeletal Musculoskeletal: Present: gait normal, strength equal bilaterally - Psychiatric Psychiatric: Present: A&O x's 3, appropriate affect, intact judgment & insight - Allied health notes Allied health notes reviewed: nursing - Labs CBC & Chem 7: 01/28/18 06:10 01/28/18 06:10 Labs: Abnormal Lab Results - Last 24 Hours (Table) 01/28/18 01/28/18 01/28/18 Range/Units 16:38 19:27 20:43 APTT 48.2 H (22.0-30.0) sec POC Glucose (mg/dL) 146 H 193 H (75-99) mg/dL 01/29/18 01/29/18 Range/Units 06:06 11:45 APTT (22.0-30.0) sec POC Glucose (mg/dL) 156 H 174 H (75-99) mg/dL Microbiology - Last 24 Hours (Table) 01/28/18 20:18 Nasal Screen MRSA/MSSA ([facility]) - Preliminary Nasal Swab 01/28/18 20:45 Urine Culture - Preliminary Urine,Voided - Imaging and Cardiology Chest x-ray: report reviewed, image reviewed Venous US: report reviewed, image reviewed Assessment and Plan (1) Hypertension Current Visit: Yes Status: Acute Code(s): I10 - ESSENTIAL (PRIMARY) HYPERTENSION SNOMED Code(s): 24390661 (2) Hyperlipidemia Current Visit: Yes Status: Acute Code(s): E78.5 - HYPERLIPIDEMIA, UNSPECIFIED SNOMED Code(s): 56884806 (3) Presence of stent in coronary artery in patient with coronary artery disease Current Visit: Yes Status: Acute Code(s): I25.10 - ATHSCL HEART DISEASE OF [place] CORONARY ARTERY W/O ANG PCTRS; Z95.5 - PRESENCE OF CORONARY ANGIOPLASTY IMPLANT AND GRAFT SNOMED Code(s): 295963639 (4) Severe mitral regurgitation by prior echocardiogram Current Visit: Yes Status: Acute Code(s): I34.0 - NONRHEUMATIC MITRAL (VALVE ) INSUFFICIENCY SNOMED Code(s): 69829870 (5) Diabetes mellitus type 2 in obese Current Visit: Yes Status: Acute Code(s): E11.69 - TYPE 2 DIABETES MELLITUS WITH OTHER SPECIFIED COMPLICATION; E66.9 - OBESITY, UNSPECIFIED SNOMED Code(s) : 46215284 (6) Enlarged prostate Current Visit: Yes Status: Acute Code(s): N40.0 - BENIGN PROSTATIC HYPERPLASIA WITHOUT LOWER URINRY TRACT SYMP SNOMED Code(s): 923147531 (7) Personal history of nicotine dependence Current Visit: Yes Status: Acute Code(s): Z87.891 - PERSONAL HISTORY OF NICOTINE DEPENDENCE SNOMED Code(s): 04796741 (8) Asthma Current Visit: Yes Status: Acute Code(s): J45.909 - UNSPECIFIED ASTHMA, UNCOMPLICATED SNOMED Code(s): 506275850 (9) COPD (chronic obstructive pulmonary disease) Current Visit: Yes Status: Acute Code(s): J44.9 - CHRONIC OBSTRUCTIVE PULMONARY DISEASE, UNSPECIFIED SNOMED Code(s): 57244866 Plan: 1. Continue to maximize medical therapy, continue aspirin, statin, and beta lencho. 2. We will discontinue his heparin drip 2 hours prior to surgery. 3. Encourage use of his incentive spirometry every hour while awake. 4. DVT and GI prophylaxis. 5. STS risk score was calculated and discussed with the patient by Dr. Spicer. 6. 5 m walk test was completed by accounts payable coordinator: Time 1:5.31 seconds, time 2: 5.53 seconds, time 3: 5.20 seconds. 7. The patient will be scheduled for myocardial revascularization with mitral valve repair possible replacement and Mcintosh maze procedure on 01/30/[address] Spicer. 8. Continue preoperative teaching. 9. Further recommendations to follow based on the patient's clinical course. Time with Patient: Greater than 30
--- NOTE | 2018-01-29 14:00 | P.PN ---
Subjective Progress Note Date: 01/29/18 This is 77-year-old gentleman transferred here from [facility], patient has two-vessel coronary artery disease and severe mitral regurg. He is scheduled to undergo surgery tomorrow. Patient was seen and examined this morning, doing well, denies any chest pain in his breathing has been stable. Blood pressure 115/70 with a heart rate in the 90s, 95% on room air. Objective - Vital Signs Vital signs: Vital Signs Temp 98.8 F 01/29/18 11:19 Pulse 94 01/29/18 11:19 Resp 18 01/29/18 11:19 BP 115/72 01/29/18 11:19 Pulse Ox 95 01/29/18 11:19 Intake & Output 01/28/18 01/29/18 01/29/18 18:59 06:59 18:59 Intake Total 910.000 86.95 240 Output Total 600 Balance 310.000 86.95 240 Weight 101.4 kg Intake: Intake, IV Titration 500.000 86.95 Amount Heparin Sodium,Porcine/ 500.000 86.95 D5w Pmx 25,000 unit In Dextrose/Water 1 500ml. bag @ 12 UNITS/KG/HR 24. 88 mls/hr IV .Q20H6M [facility] Rx#:[id number] Oral 410 240 Output: Urine 600 Other: Voiding Method Toilet Toilet Toilet # Voids 1 1 - Exam PHYSICAL EXAMINATION: HEENT: Head is atraumatic, normocephalic. Pupils equal, round. Neck is supple. There is no elevated jugular venous pressure. HEART EXAMINATION: Heart S1 S2 1 systolic ejection murmur is heard. CHEST EXAMINATION: Lungs are clear to auscultation and precussion. No chest wall tenderness is noted on palpation or with deep breathing. ABDOMEN: Soft, nontender. Bowel sounds are heard. No organomegaly noted. EXTREMITIES: 2+ peripheral pulses with no evidence of peripheral edema and no calf tenderness noted. NEUROLOGIC patient is awake, alert and oriented -3. . - Labs CBC & Chem 7: 01/28/18 06:10 01/28/18 06:10 Labs: Abnormal Lab Results - Last 24 Hours (Table) 01/28/18 01/28/18 01/28/18 Range/Units 16:38 19:27 20:43 APTT 48.2 H (22.0-30.0) sec POC Glucose (mg/dL) 146 H 193 H (75-99) mg/dL 01/29/18 01/29/18 Range/Units 06:06 11:45 APTT (22.0-30.0) sec POC Glucose (mg/dL) 156 H 174 H (75-99) mg/dL Microbiology - Last 24 Hours (Table) 01/28/18 20:18 Nasal Screen MRSA/MSSA (MEGAN) - Preliminary Nasal Swab 01/28/18 20:45 Urine Culture - Preliminary Urine,Voided Assessment and Plan Plan: Assessment and plan #1 coronary artery disease and severe mitral regurgitation, patient is awaiting to undergo CABG and mitral valve surgery tomorrow. #2 hyperlipidemia #3 diabetes #4 hypertension Plan We will continue the current medications the patient is on, we will continue to follow during the duration. DNP note has been reviewed, I agree with a documented findings and plan of care. Patient was seen and examined.
--- NOTE | 2018-01-29 14:00 | P.PN ---
Subjective Progress Note Date: 01/29/18 This is a 69 HO pleasant gentleman patient of Dr. Cardoso with underlying history of CAD with prior PCI stent placement, hypertension hypertensive cardiovascular disease hyperlipidemia and diabetes mellitus type 2 asthma OR arthritis COPD admitted to [facility] and was found on imaging studies secondary to his chest pain new onset atrial fibrillation with RVR and shortness of breath, cardiac cath performed 01/26/2018 showing 80% stenosis of RCA, 70% stenoses of the left circumflex involving the AV groove circumflex ostial portion, severe mitral regurgitation, dilated left ventricle ejection fraction 50-55%. He was transferred to [facility] for mitral valve placement and CABG 2 vessel critical stenosis involving left circumflex and right coronary artery. CABG most likely would be anticipated to be done January 30 He was seen at [facility] by , for pulmonary clearance, pertinent laboratories creatinine 1.01 hemoglobin 12.4 TSH 0.93 hemoglobin A1c not done,. Patient currently is on basal bolus Levemir and premeal coverage, instead of home oral medication, continue on Januvia 100 mg at bedtime, cardiology to see, Dr. Marte for consult and consult to Dr. Spicer cardiothoracic, Dr. Salas cardiology. He should maintain IV heparin 01/29: Patient is followed by Dr. Marte and Dr. VC Fry. Patient is scheduled for coronary artery bypass surgery and mitral valve replacement or repair on Friday. Blood sugars are running 156-193. Additional 2units of Novolog added premeal until surgery. Patient states his blood sugars are usually 100-130 at home. Objective - Vital Signs Vital signs: Vital Signs Temp 98.6 F 01/29/18 04:00 Pulse 84 01/29/18 04:00 Resp 16 01/29/18 04:00 BP 135/83 01/29/18 04:00 Pulse Ox 95 01/29/18 04:00 Intake & Output 01/28/18 01/29/18 01/29/18 18:59 06:59 18:59 Intake Total 910.000 86.95 Output Total 600 Balance 310.000 86.95 Weight 101.4 kg Intake: Intake, IV Titration 500.000 86.95 Amount Heparin Sodium,Porcine/ 500.000 86.95 D5w Pmx 25,000 unit In Dextrose/Water 1 500ml. bag @ 12 UNITS/KG/HR 24. 88 mls/hr IV .Q20H6M [facility] Rx#:[id number] Oral 410 Output: Urine 600 Other: Voiding Method Toilet Toilet # Voids 1 - Exam General appearance: cooperative, no acute distress - EENT Eyes: anicteric sclerae, EOMI, PERRLA, dentition normal, normal appearance ENT: NA/AT, normal oropharynx - Neck Neck: no lymphadenopathy, normal ROM, no other, no rigidity, no stridor, no thyromegaly - Respiratory Respiratory: bilateral: CTA, negative: diminished, dullness, rales, rhonchi - Cardiovascular Rhythm: regular Heart sounds: normal: S1, S2 Abnormal Heart Sounds: no systolic murmur, no diastolic murmur, no rub, no S3 Gallop, no S4 Gallop, no click, no other - Gastrointestinal General gastrointestinal: normal bowel sounds, soft - Integumentary Integumentary: normal, normal turgor - Neurologic Neurologic: CNII-XII intact - Musculoskeletal Musculoskeletal: gait normal, strength equal bilaterally - Psychiatric Psychiatric: A&O x's 3, appropriate affect, intact judgment & insight - Labs CBC & Chem 7: 01/28/18 06:10 01/28/18 06:10 Labs: Abnormal Lab Results - Last 24 Hours (Table) 01/28/18 01/28/18 01/28/18 Range/Units 06:10 08:58 11:22 APTT (22.0-30.0) sec POC Glucose (mg/dL) 183 H (75-99) mg/dL Hemoglobin A1c 7.4 H (4.0-6.0) % HDL Cholesterol 37 L (40-60) mg/dL 01/28/18 01/28/18 01/28/18 Range/Units 12:51 16:38 19:27 APTT 43.1 H 48.2 H (22.0-30.0) sec POC Glucose (mg/dL) 146 H (75-99) mg/dL Hemoglobin A1c (4.0-6.0) % HDL Cholesterol (40-60) mg/dL 01/28/18 01/29/18 Range/Units 20:43 06:06 APTT (22.0-30.0) sec POC Glucose (mg/dL) 193 H 156 H (75-99) mg/dL Hemoglobin A1c (4.0-6.0) % HDL Cholesterol (40-60) mg/dL Microbiology - Last 24 Hours (Table) 01/28/18 20:18 Nasal Screen MRSA/MSSA (MEGAN) - Preliminary Nasal Swab 01/28/18 20:45 Urine Culture - Preliminary Urine,Voided Assessment and Plan Plan: 1. Severe mitral regurgitation and CAD with 2 vessel critical stenosis requiring CABG, and mitral valve replacement, Dr. Escobar from cardiovascular has been consulted, crane manager following, vein mapping has been performed, patient is optimized for pulmonary status including expected ventilatory support post CABG, patient would have his diabetes mellitus optimized, A1c to be done incentive spirometry 2. Diabetes mellitus type 2 previous oral medications have been discontinued mainly Glucotrol and metformin, continue on Janumet, Levemir at 10 units every at bedtime, and pre-meal NovoLog and correctional scale until diet has been optimized postop 3 New onset atrial fibrillation currently on IV heparin and beta lencho 4 CK D stage II with baseline creatinine 1.01, continue to monitor. Debility, 5CAD with previous PCI and stent placement with recent cardiac cath 01/26/[address] Reynolds found to have 60-70% stenosis involving left circumflex AV groove circumflex ostial portion, and RCA 80% stenosis mid RCA, EF 50-55% left ventricle end-diastolic pressure 14 severe mitral regurgitation. Continue lisinopril 10 mg twice a day, metoprolol 50 mg daily aspirin Lipitor 40 6 BPH without urinary tract symptomatology, Flomax will be started postop with the anticipation that he would have urinary complaints. 7 Asthma without any current exacerbation with COPD and when necessary nebulizer , incentive spirometry, 8 Hypertensive cardiovascular disease 9 History of skin cancer 10 Osteoarthritis (on any opiates prior to admission 7. Hyperlipidemia on Lipitor 40 mg daily GI prophylaxis DVT prophylaxis currently on IV heparin Discharge plan: To be determined Impression and plan of care have been directed as dictated by the signing physician. Zoya Lenz nurse practitioner acting as scribe for signing physician.
[2018-01-29] MEDS: HEPARIN SODIUM,PORCINE/D5W PMX 25,000 UNIT in DEXTROSE/WATER 1 500ML.BAG IV SCH ×2 (15:38→22:08)
[2018-01-29 17:25] LABS: Glucose,Whole Blood 150 mg/dL (75-99)
[2018-01-29 21:17] LABS: Glucose,Whole Blood 139 mg/dL (75-99)
[2018-01-29] MEDS: TAMSULOSIN 0.4 MG CAP.ER.24H PO SCH (21:22)
[2018-01-29] MEDS: INSULIN DETEMIR 100 UNIT/ML 10 ML VIAL SQ SCH (21:22)
[2018-01-30] MEDS: LINAGLIPTIN 5 MG TABLET PO SCH (03:26)
[2018-01-30] MEDS: LISINOPRIL 10 MG TAB PO SCH (03:27)
[2018-01-30] MEDS ORDERED: PAPAVERINE 360 MG in SODIUM CHLORIDE 0.9% 90 ML IV ONE (05:00)
[2018-01-30] MEDS ORDERED: NOREPINEPHRIN 4 MG-0.9% NS PMX 4 MG/250 ML ML IV SCH (05:00)
[2018-01-30] MEDS ORDERED: ALBUMIN HUMAN 25% 50 ML in EMPTY BAG 1 BAG IVPB ONE (05:00)
[2018-01-30] MEDS ORDERED: PROTAMINE SULFATE 10 MG/ML 25 ML VIAL IV ONE ×2 (05:00→08:16)
[2018-01-30] MEDS ORDERED: ASPIRIN 325 MG TAB PO ONE (05:00)
[2018-01-30] MEDS ORDERED: NITROGLYCERIN-D5W PMX 50 MG in DEXTROSE/WATER 1 250ML.BAG IV ONE (05:00)
[2018-01-30] MEDS ORDERED: CLEVIDIPINE BUTYRATE 25 MG in EMPTY BAG 1 BAG IV ONE (05:00)
[2018-01-30] MEDS ORDERED: CHLORHEXIDINE GLUCONATE 15 ML CUP MUCOUS MEM ONE (05:00)
[2018-01-30] MEDS ORDERED: ceFAZolin 2 GM in SODIUM CHLORIDE 0.9% 30 ML IVPB ONE (05:00)
[2018-01-30] MEDS ORDERED: ALBUMIN HUMAN 5% 500 ML in EMPTY BAG 1 BAG IVPB ONE ×6 (05:00)
[2018-01-30] MEDS ORDERED: DEXTROSE 5% IN WATER 1,000 ML with POTASSIUM CHLORIDE 25 MEQ, SODIUM CHLORIDE 2.5MEQ/ML... IV SCH ×6 (05:00)
[2018-01-30] MEDS ORDERED: PROTAMINE SULFATE 250 MG in EMPTY BAG 1 BAG IV ONE (05:00)
[2018-01-30] MEDS ORDERED: MAGNESIUM SULFATE SYG 4.06 MEQ/ML SYRINGE IV ONE (05:00)
[2018-01-30] MEDS ORDERED: NITROGLYCERIN-D5W PMX 25 MG/250 ML BTL IV ONE (05:00)
[2018-01-30] MEDS ORDERED: ATORVASTATIN 10 MG TAB PO ONE (05:00)
[2018-01-30] MEDS ORDERED: HEPARIN SODIUM,PORCINE 5,000 UNIT in SODIUM CHLORIDE 0.9% 500 ML IV ONE (05:00)
[2018-01-30] MEDS ORDERED: DEXTROSE 5% IN WATER 1,000 ML with POTASSIUM CHLORIDE 110 MEQ, MAGNESIUM SULFATE 16 MEQ... IV SCH ×5 (05:00)
[2018-01-30] MEDS ORDERED: ceFAZolin 2,000 MG in SODIUM CHLORIDE 0.9% 30 ML IVPB ONE (05:00)
[2018-01-30] MEDS ORDERED: PHENYLEPHRINE 40 MG in SODIUM CHLORIDE 0.9% 250 ML IV ONE (05:00)
[2018-01-30] MEDS ORDERED: TRANEXAMIC ACID 2,000 MG in SODIUM CHLORIDE 0.9% 180 ML IV ONE (05:00)
[2018-01-30] MEDS ORDERED: MANNITOL 25% 12.5 GM/50 ML VIAL IV ONE ×2 (05:00)
[2018-01-30] MEDS ORDERED: HEPARIN SODIUM 1,000 UN/ML (10ML VL) IV ONE (05:00)
[2018-01-30] MEDS ORDERED: METOPROLOL TARTRATE 12.5 MG TAB PO ONE (05:00)
[2018-01-30] MEDS ORDERED: PHENYLEPHRINE-0.9% NACL SYG 1 MG/10 ML SYRINGE IV ONE ×4 (05:00)
[2018-01-30] MEDS ORDERED: CALCIUM CHLORIDE 100 MG/ML 10 ML SYRINGE IVP ONE (05:00)
[2018-01-30] MEDS ORDERED: INSULIN REGULAR 100 UNIT in SODIUM CHLORIDE 0.9% 100 ML IV ONE (05:00)
[2018-01-30 05:45] LABS: Glucose,Whole Blood 141 mg/dL (75-99)
[2018-01-30] MEDS ORDERED: LACTATED RINGERS 1,000 ML IV ONE (06:19)
[2018-01-30] MEDS ORDERED: fentaNYL (PF) 50 MCG/ML 50 ML VIAL ONE (08:16)
[2018-01-30] MEDS ORDERED: PHENYLEPHRINE-0.9% NACL SYG 1 MG/10 ML SYRINGE ONE (08:16)
[2018-01-30] MEDS ORDERED: MIDAZOLAM 2 MG/2 ML VIAL ONE (08:16)
[2018-01-30] MEDS ORDERED: SODIUM CHLORIDE 0.9% 250 ML BAG ONE (08:16)
[2018-01-30] MEDS ORDERED: VASOPRESSIN 20 UNIT/ML 1 ML VIAL ONE (08:16)
[2018-01-30] MEDS ORDERED: VECURONIUM 10 MG VIAL IV ONE (08:16)
[2018-01-30] MEDS ORDERED: SODIUM CHLORIDE 0.9% IRRIG 1,000 ML BTL IRRIGATION ONE (08:16)
[2018-01-30] MEDS ORDERED: ePHEDrine SULFATE/0.9% NACL/PF 50 MG/5 ML SYRINGE IV ONE (08:16)
[2018-01-30] MEDS ORDERED: fentaNYL (PF) 50 MCG/ML 2 ML AMP ONE (08:16)
[2018-01-30] MEDS ORDERED: ceFAZolin 1,000 MG VIAL ONE (08:16)
[2018-01-30] MEDS ORDERED: POTASSIUM CHLORIDE OPEN HEART 20 MEQ/50 ML BAG IVPB ONE (08:16)
[2018-01-30] MEDS ORDERED: ELECTROLYTE-R (PH 7.4) 1,000 ML IV.SOLN IV ONE (08:16)
[2018-01-30] MEDS ORDERED: LIDOCAINE 2% SYG (PF) 100 MG/5 ML ONE (08:16)
[2018-01-30] MEDS ORDERED: HEPARIN SODIUM,PORCINE 10,000 UNIT/ML 1 ML VIAL ONE (08:16)
[2018-01-30] MEDS ORDERED: TRANEXAMIC ACID 1,000 MG/10 ML VIAL ONE (08:16)
[2018-01-30] MEDS ORDERED: MAGNESIUM SULFATE 4 MEQ/ML 2 ML VIAL ONE (08:16)
[2018-01-30 08:50] LABS: ABG Base Excess -0.1 mmol/L; ABG HCO3 23 mmol/L (21-25); ABG PCO2 34 mmHg (35-45); ABG PH 7.45 (7.35-7.45); ABG Sodium Whole Blood 139 mmol/L (135-146); ABG TCO2 24 mmol/L (19-24)
[2018-01-30 10:25] LABS: ABG Base Excess -1.5 mmol/L; ABG HCO3 25 mmol/L (21-25); ABG Oxygen Saturation 99.7 % (94-97); ABG PCO2 51 mmHg (35-45); ABG PO2 246 mmHg (83-108); ABG Sodium Whole Blood 139 mmol/L (135-146); ABG TCO2 27 mmol/L (19-24)
[2018-01-30 10:48] LABS: ABG Base Excess -3.1 mmol/L; ABG HCO3 24 mmol/L (21-25); ABG Oxygen Saturation 99.9 % (94-97); ABG PCO2 50 mmHg (35-45); ABG PH 7.29 (7.35-7.45); ABG PO2 349 mmHg (83-108); ABG Potassium Whole Blood 5.4 mmol/L (3.4-4.5); ABG Sodium Whole Blood 134 mmol/L (135-146); ABG TCO2 25 mmol/L (19-24)
[2018-01-30 11:26] LABS: ABG HCO3 25 mmol/L (21-25); ABG Oxygen Saturation 99.9 % (94-97); ABG PCO2 44 mmHg (35-45); ABG PH 7.35 (7.35-7.45); ABG PO2 260 mmHg (83-108); ABG Potassium Whole Blood 4.1 mmol/L (3.4-4.5); ABG Sodium Whole Blood 137 mmol/L (135-146); ABG TCO2 26 mmol/L (19-24)
[2018-01-30 11:57] LABS: ABG Base Excess -0.9 mmol/L; ABG HCO3 25 mmol/L (21-25); ABG Oxygen Saturation 99.9 % (94-97); ABG PCO2 43 mmHg (35-45); ABG PH 7.37 (7.35-7.45); ABG PO2 275 mmHg (83-108); ABG Potassium Whole Blood 4.6 mmol/L (3.4-4.5); ABG Sodium Whole Blood 136 mmol/L (135-146); ABG TCO2 26 mmol/L (19-24)
[2018-01-30 12:28] LABS: ABG Base Excess -1.7 mmol/L; ABG HCO3 24 mmol/L (21-25); ABG Oxygen Saturation 99.8 % (94-97); ABG PCO2 44 mmHg (35-45); ABG PH 7.34 (7.35-7.45); ABG PO2 286 mmHg (83-108); ABG Potassium Whole Blood 4.4 mmol/L (3.4-4.5); ABG Sodium Whole Blood 138 mmol/L (135-146); ABG TCO2 25 mmol/L (19-24)
--- NOTE | 2018-01-30 14:03 | P.PN ---
Subjective Progress Note Date: 01/30/18 This is a 69 HO pleasant gentleman patient of Dr. Cardoso with underlying history of CAD with prior PCI stent placement, hypertension hypertensive cardiovascular disease hyperlipidemia and diabetes mellitus type 2 asthma OR arthritis COPD admitted to [facility] and was found on imaging studies secondary to his chest pain new onset atrial fibrillation with RVR and shortness of breath, cardiac cath performed 01/26/2018 showing 80% stenosis of RCA, 70% stenoses of the left circumflex involving the AV groove circumflex ostial portion, severe mitral regurgitation, dilated left ventricle ejection fraction 50-55%. He was transferred to [facility] for mitral valve placement and CABG 2 vessel critical stenosis involving left circumflex and right coronary artery. CABG most likely would be anticipated to be done January 30 He was seen at [facility] by , for pulmonary clearance, pertinent laboratories creatinine 1.01 hemoglobin 12.4 TSH 0.93 hemoglobin A1c not done,. Patient currently is on basal bolus Levemir and premeal coverage, instead of home oral medication, continue on Januvia 100 mg at bedtime, cardiology to see, Dr. Marte for consult and consult to Dr. Spicer cardiothoracic, Dr. Salas cardiology. He should maintain IV heparin 01/29: Patient is followed by Dr. Marte and Dr. VC Fry. Patient is scheduled for coronary artery bypass surgery and mitral valve replacement or repair on Friday. Blood sugars are running 156-193. Additional 2units of Novolog added premeal until surgery. Patient states his blood sugars are usually 100-130 at home. 01/30: Patient is going for surgery. Objective - Vital Signs Vital signs: Vital Signs Temp 97.9 F 01/30/18 06:15 Pulse 83 01/30/18 06:15 Resp 16 01/30/18 06:15 BP 146/91 01/30/18 06:15 Pulse Ox 95 01/30/18 06:15 Intake & Output 01/29/18 01/30/18 01/30/18 18:59 06:59 18:59 Intake Total 883.05 899.125 2 Balance 883.05 899.125 2 Weight 101.5 kg Intake: IV 190 2 0.9 90 Intake, IV Titration 413.05 229.125 Amount Heparin Sodium,Porcine/ 413.05 229.125 D5w Pmx 25,000 unit In Dextrose/Water 1 500ml. bag @ 12 UNITS/KG/HR 24. 88 mls/hr IV .Q20H6M [facility] Rx#:[id number] Oral 470 480 Other: Voiding Method Toilet Toilet # Voids 4 1 - Exam General appearance: cooperative, no acute distress - EENT Eyes: anicteric sclerae, EOMI, PERRLA, dentition normal, normal appearance ENT: NA/AT, normal oropharynx - Neck Neck: no lymphadenopathy, normal ROM, no other, no rigidity, no stridor, no thyromegaly - Respiratory Respiratory: bilateral: CTA, negative: diminished, dullness, rales, rhonchi - Cardiovascular Rhythm: regular Heart sounds: normal: S1, S2 Abnormal Heart Sounds: no systolic murmur, no diastolic murmur, no rub, no S3 Gallop, no S4 Gallop, no click, no other - Gastrointestinal General gastrointestinal: normal bowel sounds, soft - Integumentary Integumentary: normal, normal turgor - Neurologic Neurologic: CNII-XII intact - Musculoskeletal Musculoskeletal: gait normal, strength equal bilaterally - Psychiatric Psychiatric: A&O x's 3, appropriate affect, intact judgment & insight - Labs CBC & Chem 7: 01/28/18 06:10 01/28/18 06:10 Labs: Abnormal Lab Results - Last 24 Hours (Table) 01/29/18 01/29/18 01/29/18 Range/Units 09:46 11:45 17:17 POC Glucose (mg/dL) 174 H 150 H (75-99) mg/dL Crossmatch See Detail 01/29/18 01/30/18 Range/Units 21:05 05:43 POC Glucose (mg/dL) 139 H 141 H (75-99) mg/dL Crossmatch Microbiology - Last 24 Hours (Table) 01/28/18 20:45 Urine Culture - Final Urine,Voided Assessment and Plan Plan: 1. Severe mitral regurgitation and CAD with 2 vessel critical stenosis requiring CABG, and mitral valve replacement, Dr. Spicer from cardiovascular surgery. Patient is plan for myocardial revascularization with SCHWARTZ, endoscopic vein harvest, mitral valve repair possible replacement, modified Mcintosh- Maze procedure and intraoperative transesophageal echocardiogram. Cardiology is following. Patient will go into the intensive care unit following procedure. Dr. Vides is covering for intensive care management. 2. Diabetes mellitus type 2 previous oral medications have been discontinued mainly Glucotrol and metformin, continue on Janumet, Levemir at 10 units every at bedtime, and pre-meal NovoLog and correctional scale until diet has been optimized postop 3. New onset atrial fibrillation, paroxysmal, currently on IV heparin and Toprol-XL 4. CKD stage II with baseline creatinine 1.01, continue to monitor. Debility, 5. CAD with previous PCI and stent placement with recent cardiac cath [address] Reynolds found to have 60-70% stenosis involving left circumflex AV groove circumflex ostial portion, and RCA 80% stenosis mid RCA, EF 50-55% left ventricle end-diastolic pressure 14 severe mitral regurgitation. Continue lisinopril 10 mg twice a day, metoprolol 50 mg daily aspirin Lipitor 40 6. BPH without urinary tract symptomatology. Continue Flomax or 0.8 mg at bedtime daily. Monitor for urinary retention. 7. Mild intermittent asthma without any current exacerbation with COPD and when necessary nebulizer, incentive spirometry, 8. Hypertensive cardiovascular disease. On Toprol-XL. 9. History of skin cancer 10. Osteoarthritis, generalized. 11. Hyperlipidemia on Lipitor 40 mg daily GI prophylaxis DVT prophylaxis currently on IV heparin Discharge plan: To be determined Impression and plan of care have been directed as dictated by the signing physician. Zoya Lenz nurse practitioner acting as scribe for signing physician.
[2018-01-30 14:05] LABS: ABG PO2 >420 mmHg (83-108)
[2018-01-30 14:17] LABS: ABG Base Excess -0.8 mmol/L; ABG HCO3 26 mmol/L (21-25); ABG PCO2 51 mmHg (35-45); ABG PH 7.32 (7.35-7.45); ABG PO2 116 mmHg (83-108); ABG Potassium Whole Blood 3.6 mmol/L (3.4-4.5); ABG Sodium Whole Blood 141 mmol/L (135-146); ABG TCO2 27 mmol/L (19-24)
[2018-01-30] MEDS ORDERED: BENZOCAINE/MENTHOL LOZENG 1 EACH LOZENGE MUCOUS MEM PRN (14:18)
[2018-01-30] MEDS ORDERED: CALCIUM CHLORIDE 1,000 MG in SODIUM CHLORIDE 0.9% 100 ML IV PRN (14:18)
[2018-01-30] MEDS ORDERED: Phosphorus Replacement Protoco 1 EACH MISC MISCELLANE PRN (14:18)
[2018-01-30] MEDS ORDERED: DEXTROSE 5% IN WATER 100 ML with AMIODARONE 150 MG IV PRN (14:18)
[2018-01-30] MEDS ORDERED: NITROGLYCERIN-D5W PMX 50 MG in DEXTROSE/WATER 1 250ML.BAG IV SCH (14:18)
[2018-01-30] MEDS ORDERED: Magnesium Replacement Protocol 1 EACH MISC MISCELLANE PRN (14:18)
[2018-01-30] MEDS ORDERED: Potassium Replacement Protocol 1 EACH MISC MISCELLANE PRN (14:18)
[2018-01-30] MEDS ORDERED: PROPOFOL 1,000 MG in EMPTY BAG 1 BAG IV SCH (14:18)
[2018-01-30] MEDS: CLEVIDIPINE BUTYRATE 25 MG in EMPTY BAG 1 BAG IV SCH (15:10)
[2018-01-30 15:16] LABS: Glucose,Whole Blood 99 mg/dL (75-99)
--- NOTE | 2018-01-30 15:28 | XR ---
EXAMINATION TYPE: XR chest 1V portable DATE OF EXAM: 01/30/2018 COMPARISON: 01/28/2018 HISTORY: Post open heart TECHNIQUE: Single frontal view of the chest is obtained. FINDINGS: ET tube approximately 5.5 cm above the nita. Mediastinal drain and chest tubes noted. No sizable pneumothorax although there is bilateral consolidation and small effusion. Underlying venous congestion not excluded. More confluent patchy density involving the left perihilum. [place]coda-Manish reji ter seen. Exact location the tip is indeterminant should be correlated clinically. Postsurgical brito e right shoulder. IMPRESSION: 1. Postoperative changes with bilateral consolidation and pleural effusion correlate for venous conge stion. 2. Exact location of the tip of the Muscoda-Manish catheter is indeterminant could be correlated clinicall y.
--- NOTE | 2018-01-30 15:30 | OP ---
OPERATIVE REPORT DATE OF THE OPERATION: 01/30/2018 ATTENDING SURGEON: Dr. Fabricio Spicer ASSIST: YANCI Carlson and YANCI Jovel PREOPERATIVE DIAGNOSES: 1. Severe mitral regurgitation. 2. Two-vessel coronary arterial disease. 3. Persistent atrial fibrillation. POSTOPERATIVE DIAGNOSES: 1. Severe mitral regurgitation. 2. Two-vessel coronary arterial disease. 3. Persistent atrial fibrillation. PROCEDURE: 1. Mitral valve repair with a #30 mm carbo medics annular flex band. 2. Clip ligation of the left atrial appendage with a #35 mm AtriClip. 3. Coronary bypass grafting x2 with reverse saphenous vein graft off the aorta to the circumflex artery and the right coronary artery with endoscopic vein harvesting. 4. Complete left-sided MAZE procedure using radiofrequency ablation as well as cryoablation, intraoperative PATTIE. ANESTHESIA: General. BLOOD LOSS: 500 mL. SUMMARY: Patient was taken to the operating room, placed in supine position. Administration of general endotracheal anesthetic, placement of a [place]-Manish catheter, arterial line, adequate IV access, Narvaez catheter, patient carefully prepped and draped in a sterile fashion using and sterile towels. Greater saphenous vein was harvested from the right lower extremity with endovascular vein harvesting technique. All branches were doubly tied and divided and the incisions closed in 2 layers. Midline incision in the chest made,. the sternum divided. Pericardium was opened, heart size was enlarged. The aorta was soft. There were multiple calcific plaques present on the epicardium of the heart and a significant number of adhesions were taken down to free the heart from the pericardium. The patient was heparinized and his ACT greater than 480. The aorta and 2 single stage venous cannulas were placed and retrograde cardioplegic catheters positioned in the ascending aorta and coronary sinus. Patient was placed on bypass, cross-clamp placed. Heart arrested with 1 L of antegrade flow by 500 mL of retrograde cardioplegia. Retrograde cardioplegia was limited at 300 to 500 mL at the end of each 20 minutes intervals. Distal anastomoses were constructed,. reverse saphenous vein graft and anastomosis to the circumflex artery was constructed using a 7-0 Prolene running suture, caliber of this vessel was 1.75 mm. Saphenous vein anastomosis to the distal right coronary artery was constructed in a similar fashion. This is a very calcified vessel and caliber of this was 1.5 mm. Next, both sets of pulmonary. the right and left superior and inferior pulmonary veins were isolated using the AtriCure radiofrequency ablation clamp. Three sets of radiofrequency ablation lines were created across each set of pulmonary veins encompassing a cuff of left atrial tissue. At this point, the left atrial appendage was measured at its base and a 35 mm AtriClip was brought in, opened, secured at the base. officially obliterating the left atrial appendage. At this point, the left atrium was entered at the junction of the right superior pulmonary vein. A handheld retractor was placed. Mitral valve was identified. Prior to repairing the mitral valve, the floor and roof lesions connecting bilateral pulmonary vein ablation lines were was cuff performed also using the radiofrequency ablation clamp. Once 3 roof and 3 floor lesions were completed, the cryoprobe was brought into the field, connecting the mitral anulus to the right pulmonary vein isolation line a 2 minute cryo lesion was created connecting these two. At this point, the continuation across the coronary sinus was also performed using from an epicardial perspective using the cryoprobe for a 2 minute cryoablation line. At this point, the mitral valve was identified. The subvalvular apparatus as on the PATTIE appeared to be within normal limits. Therefore 2-0 Tycron non pledgeted sutures were placed from trigone to trigone along the posterior anulus. This was then passed through a #30 mm Twijector annular flex band all sutures passed through the band. The band was seated well and all sutures were secured using the core knot ligature system with this point, it was then tested with the handheld fartun and there was no evidence of any further regurgitation. The atrium was closed in a double layered, pledgeted 4-0 Prolene, vertical mattress followed by an [id number] stitch for both sides. Patient was then placed down to proximal anastomosis were constructed in the ascending aorta using 6-0 Prolene running suture. Patient was placed head down. The aortic root was vented, warm blood retrograde cardioplegia was run, complete de-airing maneuver was performed 3 times. Cross-clamp was then removed. Once beating normal sinus rhythm, patient was brought off bypass scale. Bypass uneventfully with good hemodynamics. Protamine delivered. patient decannulated. Atrial ventricular pacing wires were placed. Mediastinal left pleural chest tubes were placed. At this point. the sternum was closed with seven #6 sternal wires. Skin, subcutaneous tissue, fascia closed in 3 layers. No complications. The patient tolerated the procedure well and was taken to the cardiovascular intensive care unit in stable condition. Postoperative PATTIE showed excellent mitral valve function with no regurgitation and good left ventricular function. DHARMESH / AMENAN: [id number] /
[2018-01-30 15:31] LABS: INR 1.3 (<1.2); Partial Thromboplastin Time 24.8 sec (22.0-30.0); Prothrombin Time 11.9 sec (9.0-12.0)
[2018-01-30 15:34] LABS: ABG Base Excess -0.1 mmol/L; ABG HCO3 26 mmol/L (21-25); ABG Oxygen Saturation 97.8 % (94-97); ABG PCO2 53 mmHg (35-45); ABG PO2 113 mmHg (83-108); ABG TCO2 28 mmol/L (19-24)
[2018-01-30 15:36] LABS: Ionized Calcium 5.6 mg/dL (4.5-5.3)
[2018-01-30] MEDS: IPRATROPIUM-ALBUTEROL 3 ML NEB INHALATION SCH ×3 (15:38→22:53)
[2018-01-30 15:40] LABS: Glucose,Whole Blood 94 mg/dL (75-99)
[2018-01-30] MEDS: MILRINONE-D5W PMX 20 MG in DEXTROSE/WATER 1 100ML.BAG IV SCH (15:40)
[2018-01-30 15:42] LABS: ALT 45 U/L (21-72); AST 102 U/L (17-59); Albumin 3.4 g/dL (3.5-5.0); Alkaline Phosphatase 62 U/L (38-126); Anion Gap 10 mmol/L; Blood Urea Nitrogen 13 mg/dL (9-20); Calcium 9.6 mg/dL (8.4-10.2); Carbon Dioxide 27 mmol/L (22-30); Chloride 105 mmol/L (98-107); Glucose 94 mg/dL (74-99); Magnesium 2.4 mg/dL (1.6-2.3); Potassium 3.6 mmol/L (3.5-5.1); Sodium 142 mmol/L (137-145); Total Bilirubin 1.8 mg/dL (0.2-1.3); Total Protein 5.7 g/dL (6.3-8.2)
[2018-01-30 15:49] LABS: Basophils % (A) 0 %; Eosinophils # (A) 0.1 k/uL (0-0.7); Eosinophils % (A) 0 %; HCT 32.2 % (39.0-53.0); HGB 10.6 gm/dL (13.0-17.5); Lymphocytes # (A) 0.6 k/uL (1.0-4.8); Lymphocytes % (A) 4 %; MCH 28.7 pg (25.0-35.0); MCHC 32.9 g/dL (31.0-37.0); MCV 87.4 fL (80.0-100.0); Monocytes # (A) 1.2 k/uL (0-1.0); Monocytes % (A) 8 %; Neutrophils # (A) 12.3 k/uL (1.3-7.7); Neutrophils % (A) 85 %; Platelet Count 145 k/uL (150-450); RBC 3.69 m/uL (4.30-5.90); RDW 14.1 % (11.5-15.5); WBC 14.4 k/uL (3.8-10.6)
[2018-01-30 16:17] LABS: Glucose,Whole Blood 119 mg/dL (75-99)
[2018-01-30] MEDS: POTASSIUM CHLORIDE 10 MEQ in WATER FOR INJECTION 1 100ML.BAG IVPB SCH ×2 (16:22→17:38)
--- NOTE | 2018-01-30 16:25 | P.PN ---
Subjective Progress Note Date: 01/30/18 Principal diagnosis: ASCAD HPI: Bird Maria~is a 77 y.o.~male~~being seen examined and evaluated today for consultation. This patient was admitted to the [facility] on 01/21/18-after coming in with complaints of dyspnea with no relief from his inhaler and having significant chest pressure. Patient was found to be in A. fib with RVR and was started on a heparin drip. Patient did have an echocardiogram which revealed an EF of 55% with severe mitral regurg is RVSP P was 53 mmHg. He also had a Karlee scan stress test that was also abnormal and a PATTIE with heart catheter, please see those notes for details. Currently the patient was transfered to [facility] on 01/27/18 for a CABG and mitral valve replacement. Upon examination the patient's resting up in bed on room air. He denies any shortness of breath cough or congestion at this time. He denies any smoking history however did state that he did chew tobacco on occasion. He denies any episodes of snoring however states that his sleep each night is very restless and he wakes up a minimum of 6 times per night. The patient has never had a workup for obstructive sleep apnea. Patient also states that he has had 2 previous surgeries 1 on his knee and shoulders and had no problems with anesthesiology, or waking up from surgery. Education has been provided to the patient on the extent of the surgery as well as education on mechanical ventilation intubation and extubation with possible best case scenario outcomes and worst-case scenario comes. Patient verbalizes understanding. Interval History: 01/29/18- patient is being seen examined and evaluated today on rounds. He is resting up in bed on room air. CT is feeling well. Has been ambulating in the hallway. Has been utilizing his incentive spirometer and pulling volumes of approximately 1750 arousals. He denies any cough or congestion at this time. Patient is planned for a CABG tomorrow with cardiothoracic surgery. Preop workup has been completed. He is afebrile no further complaints. All labs and reports have been reviewed. 01/30/2018: Patient seen and examined in the intensive care unit with nursing staff at bedside. The patient has returned from CABG and valve replacement. The patient is on full ventilator support. Ventilator has been adjusted and ABG reviewed. No current issues per nursing staff. Objective - Vital Signs Vital signs: Vital Signs Temp 97.9 F 01/30/18 06:15 Pulse 107 H 01/30/18 15:48 Resp 16 01/30/18 06:15 BP 146/91 01/30/18 06:15 Pulse Ox 100 01/30/18 14:18 Intake & Output 01/29/18 01/30/18 01/30/18 18:59 06:59 18:59 Intake Total 883.05 899.125 7.534 Output Total 2100 Balance 883.05 899.125 -2092.466 Weight 101.5 kg Intake: IV 190 2 0.9 90 Intake, IV Titration 413.05 229.125 5.534 Amount Clevidipine Butyrate 25 5.534 mg In Empty Bag 1 bag @ 1 MG/HR 2 mls/hr IV .Q24H SHAUNA Rx#:[id number] Heparin Sodium,Porcine/ 413.05 229.125 D5w Pmx 25,000 unit In Dextrose/Water 1 500ml. bag @ 12 UNITS/KG/HR 24. 88 mls/hr IV .Q20H6M SHAUNA Rx#:[id number] Oral 470 480 Output: Urine 600 Estimated Blood Loss 1500 Other: Voiding Method Toilet Toilet # Voids 4 1 - Exam CONSTITUTIONAL: Sedated on ventilator HEENT: Head is normocephalic, atraumatic. Pupils are equal, conjunctiva clear. Neck is supple, trachea is midline. No JVD. RESPIRATORY: Scattered rhonchi bilaterally CARDIOVASCULAR: ~Heart is irregular rate and rhythm. S1 and S2 are heard, chest tubes in place GASTROINTESTINAL: ~Abdomen is soft, nontender, nondistended. Bowel sounds are positive. EXTREMITIES: ~No lower extremity edema is noted. Pedal pulses are palpable bilaterally. NEUROLOGICAL: Patient is sedated on ventilator - Labs CBC & Chem 7: 01/30/18 15:10 01/30/18 15:10 Labs: Abnormal Lab Results - Last 24 Hours (Table) 01/29/18 01/29/18 01/29/18 Range/Units 09:46 17:17 21:05 WBC (3.8-10.6) k/uL RBC (4.30-5.90) m/uL Hgb (13.0-17.5) gm/dL Hct (39.0-53.0) % Plt Count (150-450) k/uL Neutrophils # (1.3-7.7) k/uL Lymphocytes # (1.0-4.8) k/uL Monocytes # (0-1.0) k/uL INR (<1.2) ABG pH (7.35-7.45) ABG pCO2 (35-45) mmHg ABG pO2 (83-108) mmHg ABG HCO3 (21-25) mmol/L ABG Total CO2 (19-24) mmol/L ABG O2 Saturation (94-97) % ABG Hematocrit (34.0-46.0) % ABG Sodium (135-146) mmol/L ABG Potassium (3.4-4.5) mmol/L ABG Ionized Calcium (4.5-5.3) mg/dL ABG Glucose (75-99) mg/dL ABG Lactic Acid (0.5-1.6) mmol/L Hemoglobin (13.0-17.5) gm/dL POC Glucose (mg/dL) 150 H 139 H (75-99) mg/dL Ionized Calcium Iván (4.5-5.3) mg/dL Magnesium (1.6-2.3) mg/dL Total Bilirubin (0.2-1.3) mg/dL AST (17-59) U/L Total Protein (6.3-8.2) g/dL Albumin (3.5-5.0) g/dL Arterial Blood Potassium (3.4-4.5) mmol/L Arterial Blood Glucose (75-99) mg/dL Crossmatch See Detail 01/30/18 01/30/18 01/30/18 Range/Units 05:43 08:50 10:25 WBC (3.8-10.6) k/uL RBC (4.30-5.90) m/uL Hgb (13.0-17.5) gm/dL Hct (39.0-53.0) % Plt Count (150-450) k/uL Neutrophils # (1.3-7.7) k/uL Lymphocytes # (1.0-4.8) k/uL Monocytes # (0-1.0) k/uL INR (<1.2) ABG pH 7.30 L (7.35-7.45) ABG pCO2 34 L 51 H (35-45) mmHg ABG pO2 >420 H 246 H (83-108) mmHg ABG HCO3 (21-25) mmol/L ABG Total CO2 27 H (19-24) mmol/L ABG O2 Saturation 100.0 H 99.7 H (94-97) % ABG Hematocrit (34.0-46.0) % ABG Sodium (135-146) mmol/L ABG Potassium (3.4-4.5) mmol/L ABG Ionized Calcium (4.5-5.3) mg/dL ABG Glucose 147 H 176 H (75-99) mg/dL ABG Lactic Acid (0.5-1.6) mmol/L Hemoglobin 11.5 L 11.0 L (13.0-17.5) gm/dL POC Glucose (mg/dL) 141 H (75-99) mg/dL Ionized Calcium Iván (4.5-5.3) mg/dL Magnesium (1.6-2.3) mg/dL Total Bilirubin (0.2-1.3) mg/dL AST (17-59) U/L Total Protein (6.3-8.2) g/dL Albumin (3.5-5.0) g/dL Arterial Blood Potassium (3.4-4.5) mmol/L Arterial Blood Glucose 147 H 176 H (75-99) mg/dL Crossmatch 01/30/18 01/30/18 01/30/18 Range/Units 10:49 11:26 11:58 WBC (3.8-10.6) k/uL RBC (4.30-5.90) m/uL Hgb (13.0-17.5) gm/dL Hct (39.0-53.0) % Plt Count (150-450) k/uL Neutrophils # (1.3-7.7) k/uL Lymphocytes # (1.0-4.8) k/uL Monocytes # (0-1.0) k/uL INR (<1.2) ABG pH 7.29 L (7.35-7.45) ABG pCO2 50 H (35-45) mmHg ABG pO2 349 H 260 H 275 H (83-108) mmHg ABG HCO3 (21-25) mmol/L ABG Total CO2 25 H 26 H 26 H (19-24) mmol/L ABG O2 Saturation 99.9 H 99.9 H 99.9 H (94-97) % ABG Hematocrit 26 L 32 L 30 L (34.0-46.0) % ABG Sodium 134 L (135-146) mmol/L ABG Potassium 5.4 H 4.6 H (3.4-4.5) mmol/L ABG Ionized Calcium 4.0 L 4.3 L 4.3 L (4.5-5.3) mg/dL ABG Glucose 239 H 287 H 277 H (75-99) mg/dL ABG Lactic Acid 1.7 H (0.5-1.6) mmol/L Hemoglobin 8.6 L 10.4 L 9.7 L (13.0-17.5) gm/dL POC Glucose (mg/dL) (75-99) mg/dL Ionized Calcium Iván (4.5-5.3) mg/dL Magnesium (1.6-2.3) mg/dL Total Bilirubin (0.2-1.3) mg/dL AST (17-59) U/L Total Protein (6.3-8.2) g/dL Albumin (3.5-5.0) g/dL Arterial Blood Potassium 5.4 H 4.6 H (3.4-4.5) mmol/L Arterial Blood Glucose 239 H 287 H 277 H (75-99) mg/dL Crossmatch 01/30/18 01/30/18 01/30/18 Range/Units 12:29 14:16 15:10 WBC 14.4 H (3.8-10.6) k/uL RBC 3.69 L (4.30-5.90) m/uL Hgb 10.6 L (13.0-17.5) gm/dL Hct 32.2 L (39.0-53.0) % Plt Count 145 L (150-450) k/uL Neutrophils # 12.3 H (1.3-7.7) k/uL Lymphocytes # 0.6 L (1.0-4.8) k/uL Monocytes # 1.2 H (0-1.0) k/uL INR (<1.2) ABG pH 7.34 L 7.32 L (7.35-7.45) ABG pCO2 51 H (35-45) mmHg ABG pO2 286 H 116 H (83-108) mmHg ABG HCO3 26 H (21-25) mmol/L ABG Total CO2 25 H 27 H (19-24) mmol/L ABG O2 Saturation 99.8 H 98.0 H (94-97) % ABG Hematocrit 31 L 33 L (34.0-46.0) % ABG Sodium (135-146) mmol/L ABG Potassium (3.4-4.5) mmol/L ABG Ionized Calcium 4.4 L (4.5-5.3) mg/dL ABG Glucose 229 H 129 H (75-99) mg/dL ABG Lactic Acid 2.1 H 1.7 H (0.5-1.6) mmol/L Hemoglobin 10.1 L 10.9 L (13.0-17.5) gm/dL POC Glucose (mg/dL) (75-99) mg/dL Ionized Calcium Iván (4.5-5.3) mg/dL Magnesium (1.6-2.3) mg/dL Total Bilirubin (0.2-1.3) mg/dL AST (17-59) U/L Total Protein (6.3-8.2) g/dL Albumin (3.5-5.0) g/dL Arterial Blood Potassium (3.4-4.5) mmol/L Arterial Blood Glucose 229 H 129 H (75-99) mg/dL Crossmatch 01/30/18 01/30/18 01/30/18 Range/Units 15:10 15:10 15:32 WBC (3.8-10.6) k/uL RBC (4.30-5.90) m/uL Hgb (13.0-17.5) gm/dL Hct (39.0-53.0) % Plt Count (150-450) k/uL Neutrophils # (1.3-7.7) k/uL Lymphocytes # (1.0-4.8) k/uL Monocytes # (0-1.0) k/uL INR 1.3 H (<1.2) ABG pH 7.30 L (7.35-7.45) ABG pCO2 53 H (35-45) mmHg ABG pO2 113 H (83-108) mmHg ABG HCO3 26 H (21-25) mmol/L ABG Total CO2 28 H (19-24) mmol/L ABG O2 Saturation 97.8 H (94-97) % ABG Hematocrit (34.0-46.0) % ABG Sodium (135-146) mmol/L ABG Potassium (3.4-4.5) mmol/L ABG Ionized Calcium (4.5-5.3) mg/dL ABG Glucose (75-99) mg/dL ABG Lactic Acid (0.5-1.6) mmol/L Hemoglobin (13.0-17.5) gm/dL POC Glucose (mg/dL) (75-99) mg/dL Ionized Calcium Iván 5.6 H (4.5-5.3) mg/dL Magnesium 2.4 H (1.6-2.3) mg/dL Total Bilirubin 1.8 H (0.2-1.3) mg/dL AST 102 H (17-59) U/L Total Protein 5.7 L (6.3-8.2) g/dL Albumin 3.4 L (3.5-5.0) g/dL Arterial Blood Potassium (3.4-4.5) mmol/L Arterial Blood Glucose (75-99) mg/dL Crossmatch 01/30/18 Range/Units 15:58 WBC (3.8-10.6) k/uL RBC (4.30-5.90) m/uL Hgb (13.0-17.5) gm/dL Hct (39.0-53.0) % Plt Count (150-450) k/uL Neutrophils # (1.3-7.7) k/uL Lymphocytes # (1.0-4.8) k/uL Monocytes # (0-1.0) k/uL INR (<1.2) ABG pH (7.35-7.45) ABG pCO2 (35-45) mmHg ABG pO2 (83-108) mmHg ABG HCO3 (21-25) mmol/L ABG Total CO2 (19-24) mmol/L ABG O2 Saturation (94-97) % ABG Hematocrit (34.0-46.0) % ABG Sodium (135-146) mmol/L ABG Potassium (3.4-4.5) mmol/L ABG Ionized Calcium (4.5-5.3) mg/dL ABG Glucose (75-99) mg/dL ABG Lactic Acid (0.5-1.6) mmol/L Hemoglobin (13.0-17.5) gm/dL POC Glucose (mg/dL) 119 H (75-99) mg/dL Ionized Calcium Iván (4.5-5.3) mg/dL Magnesium (1.6-2.3) mg/dL Total Bilirubin (0.2-1.3) mg/dL AST (17-59) U/L Total Protein (6.3-8.2) g/dL Albumin (3.5-5.0) g/dL Arterial Blood Potassium (3.4-4.5) mmol/L Arterial Blood Glucose (75-99) mg/dL Crossmatch Microbiology - Last 24 Hours (Table) 01/28/18 20:18 Nasal Screen MRSA/MSSA (MEGAN) - Final Nasal Swab 01/28/18 20:45 Urine Culture - Final Urine,Voided Assessment and Plan Assessment: Chest pain Severe mitral regurgitation, s/p MVR ASCAD. s/p CABG 80-90% stenosis of his right coronary artery 60-70% stenosis of the AV circumflex COPD Possible GHULAM Diabetes mellitus type 2 Hyperlipidemia Plan: Continue full vent support ICU weaning parameters Bedisde Adair reviewed from [facility] reviewed, suggestive of restrictive lung disease, however, without lung volumes and full PFT cannot definitively diagnose. Outpatient PFT and PSG recommended. Incentive spirometry and pulmonary hygiene once extubated. GI and DVT prophylaxis. Patient will also benefit from an outpatient PSG once medically stable and discharged from the hospital. We will continue to monitor labs/results and adjust treatment as necessary. Serial ABG Hemodynamics per CVTS
[2018-01-30] MEDS: AMIODARONE 450 MG in DEXTROSE 5% IN WATER 250 ML IV PRN ×4 (16:45→23:35)
[2018-01-30] MEDS: ALBUMIN HUMAN 5% 250 ML in EMPTY BAG 1 BAG IVPB PRN ×2 (16:50→18:20)
[2018-01-30 17:10] LABS: Glucose,Whole Blood 178 mg/dL (75-99)
[2018-01-30] MEDS: INSULIN REGULAR 100 UNIT in SODIUM CHLORIDE 0.9% 100 ML IV SCH (17:11)
[2018-01-30] MEDS: ACETAMINOPHEN IV (For NPO) 1,000 MG in EMPTY BAG 1 BAG IVPB SCH ×2 (17:38→23:33)
[2018-01-30] MEDS: LACTATED RINGERS 1,000 ML IV SCH (17:41)
[2018-01-30 17:56] LABS: Glucose,Whole Blood 172 mg/dL (75-99)
[2018-01-30] MEDS ORDERED: NOREPINEPHRIN 16 MG-0.9%NS PMX 16 MG/250 ML ML IV SCH (18:00)
[2018-01-30 18:23] LABS: Basophils % (A) 0 %; Eosinophils % (A) 0 %; HCT 30.4 % (39.0-53.0); HGB 9.7 gm/dL (13.0-17.5); Lymphocytes # (A) 0.7 k/uL (1.0-4.8); Lymphocytes % (A) 6 %; MCH 28.1 pg (25.0-35.0); MCHC 31.9 g/dL (31.0-37.0); MCV 88.1 fL (80.0-100.0); Mean Platelet Volume 7.6; Monocytes # (A) 0.8 k/uL (0-1.0); Monocytes % (A) 7 %; Neutrophils # (A) 10.2 k/uL (1.3-7.7); Neutrophils % (A) 85 %; Platelet Count 137 k/uL (150-450); RBC 3.45 m/uL (4.30-5.90); RDW 14.1 % (11.5-15.5)
[2018-01-30 18:51] LABS: Glucose,Whole Blood 167 mg/dL (75-99)
[2018-01-30 19:50] LABS: Ovalocytes Present; Poikilocytosis (M) Present
[2018-01-30 20:06] LABS: Glucose,Whole Blood 174 mg/dL (75-99)
[2018-01-30 21:00] LABS: Glucose,Whole Blood 172 mg/dL (75-99)
[2018-01-30 21:13] LABS: Basophils % (A) 0 %; Eosinophils % (A) 0 %; HCT 30.1 % (39.0-53.0); HGB 9.4 gm/dL (13.0-17.5); Lymphocytes # (A) 0.3 k/uL (1.0-4.8); Lymphocytes % (A) 3 %; MCH 27.7 pg (25.0-35.0); MCHC 31.3 g/dL (31.0-37.0); MCV 88.6 fL (80.0-100.0); Mean Platelet Volume 9.6; Monocytes # (A) 0.7 k/uL (0-1.0); Monocytes % (A) 6 %; Neutrophils # (A) 9.7 k/uL (1.3-7.7); Neutrophils % (A) 90 %; Platelet Count 135 k/uL (150-450); RDW 14.2 % (11.5-15.5); WBC 10.8 k/uL (3.8-10.6)
[2018-01-30 21:22] LABS: Anion Gap 11 mmol/L; Blood Urea Nitrogen 16 mg/dL (9-20); Calcium 8.9 mg/dL (8.4-10.2); Carbon Dioxide 25 mmol/L (22-30); Chloride 104 mmol/L (98-107); Glucose 161 mg/dL (74-99); Potassium 3.5 mmol/L (3.5-5.1); Sodium 140 mmol/L (137-145)
[2018-01-30] MEDS: MUPIROCIN 2% OINT 22 GM TUBE NASAL SCH (22:10)
[2018-01-30 22:11] LABS: Glucose,Whole Blood 166 mg/dL (75-99)
[2018-01-30] MEDS ORDERED: POTASSIUM CHLORIDE 20 MEQ in WATER FOR INJECTION 1 100ML.BAG IVPB ONE (22:30)
[2018-01-30 23:19] LABS: Glucose,Whole Blood 170 mg/dL (75-99)
[2018-01-30] MEDS: HEPARIN SODIUM,PORCINE 5,000 UNIT/ML 1 ML VIAL SQ SCH (23:34)
[2018-01-30] MEDS: MORPHINE SULFATE 4 MG/ML SYRINGE IVP PRN (23:34)
[2018-01-30] MEDS: ceFAZolin IN SWFI 2 GM/20 ML SYRINGE IVP SCH (23:34)
[2018-01-31 00:06] LABS: Glucose,Whole Blood 173 mg/dL (75-99)
[2018-01-31 00:58] LABS: Glucose,Whole Blood 180 mg/dL (75-99)
[2018-01-31] MEDS: INSULIN REGULAR 100 UNIT in SODIUM CHLORIDE 0.9% 100 ML IV SCH ×3 (01:02→23:09)
[2018-01-31 01:25] LABS: ABG Base Excess -1.9 mmol/L; ABG HCO3 23 mmol/L (21-25); ABG PCO2 40 mmHg (35-45); ABG PH 7.38 (7.35-7.45); ABG PO2 104 mmHg (83-108); ABG TCO2 25 mmol/L (19-24)
[2018-01-31 02:15] LABS: Glucose,Whole Blood 170 mg/dL (75-99)
[2018-01-31 02:56] LABS: Glucose,Whole Blood 151 mg/dL (75-99)
[2018-01-31] MEDS: MORPHINE SULFATE 4 MG/ML SYRINGE IVP PRN (03:00)
[2018-01-31] MEDS: ONDANSETRON 4 MG/2 ML VIAL IVP PRN ×2 (03:19→20:42)
[2018-01-31 04:15] LABS: Glucose,Whole Blood 143 mg/dL (75-99)
[2018-01-31] MEDS: CLEVIDIPINE BUTYRATE 25 MG in EMPTY BAG 1 BAG IV SCH (04:22)
[2018-01-31 04:32] LABS: Basophils % (A) 0 %; Eosinophils % (A) 0 %; HCT 31.7 % (39.0-53.0); HGB 10.2 gm/dL (13.0-17.5); Lymphocytes # (A) 0.4 k/uL (1.0-4.8); Lymphocytes % (A) 3 %; MCH 28.3 pg (25.0-35.0); MCHC 32.3 g/dL (31.0-37.0); MCV 87.7 fL (80.0-100.0); Mean Platelet Volume 9.1; Monocytes # (A) 0.7 k/uL (0-1.0); Monocytes % (A) 6 %; Neutrophils # (A) 10.6 k/uL (1.3-7.7); Neutrophils % (A) 89 %; Platelet Count 158 k/uL (150-450); RBC 3.61 m/uL (4.30-5.90); RDW 14.3 % (11.5-15.5); WBC 11.9 k/uL (3.8-10.6)
[2018-01-31 04:45] LABS: Albumin 3.7 g/dL (3.5-5.0); Calcium 9.1 mg/dL (8.4-10.2); Magnesium 1.9 mg/dL (1.6-2.3); Potassium 4.5 mmol/L (3.5-5.1); Total Bilirubin 1.9 mg/dL (0.2-1.3); Total Protein 5.9 g/dL (6.3-8.2)
[2018-01-31 04:47] LABS: INR 1.2 (<1.2); Partial Thromboplastin Time 24.7 sec (22.0-30.0); Prothrombin Time 11.3 sec (9.0-12.0)
[2018-01-31 05:06] LABS: Glucose,Whole Blood 154 mg/dL (75-99)
[2018-01-31] MEDS: ACETAMINOPHEN IV (For NPO) 1,000 MG in EMPTY BAG 1 BAG IVPB SCH ×3 (05:30→17:25)
[2018-01-31] MEDS: MAGNESIUM SULFATE-D5W PMX 1 GM in DEXTROSE/WATER 1 100ML.BAG IVPB SCH ×2 (05:30→06:54)
[2018-01-31] MEDS: MILRINONE-D5W PMX 20 MG in DEXTROSE/WATER 1 100ML.BAG IV SCH ×2 (05:39→16:05)
[2018-01-31 06:23] LABS: Glucose,Whole Blood 154 mg/dL (75-99)
--- NOTE | 2018-01-31 06:57 | XR ---
EXAMINATION TYPE: XR chest 1V portable DATE OF EXAM: 01/31/2018 HISTORY: Post Operative Cardiac Surgery. REFERENCE: Previous study dated 01/30/2018. FINDINGS: There has been a midline sternotomy. The patient has been extubated. The patient is NG tube is been removed. A [place]-Manish catheter remains in place via a right internal jugular approach. Its ti p is in the pulmonary outflow tract. 2 left pleural drains remain in place. The heart is enlarged. There is mild vascular congestion. There is bibasilar airspace disease which h as worsened from previous. There are small, bilateral effusions. IMPRESSION: 1. CARDIOMEGALY. 2. WORSENING, BILATERAL EFFUSIONS. 3. WORSENING BIBASILAR AIRSPACE DISEASE.
[2018-01-31 07:01] LABS: Glucose,Whole Blood 161 mg/dL (75-99)
[2018-01-31] MEDS: IPRATROPIUM-ALBUTEROL 3 ML NEB INHALATION PRN ×2 (07:47→11:17)
[2018-01-31] MEDS: AMIODARONE 200 MG TAB PO SCH ×2 (08:18→20:42)
[2018-01-31] MEDS: METOPROLOL TARTRATE 25 MG TAB PO SCH ×2 (08:18→21:53)
[2018-01-31] MEDS: ASPIRIN 325 MG TAB PO SCH (08:19)
[2018-01-31] MEDS: HEPARIN SODIUM,PORCINE 5,000 UNIT/ML 1 ML VIAL SQ SCH ×2 (08:19→15:45)
[2018-01-31] MEDS: ATORVASTATIN 40 MG TAB PO SCH (08:19)
[2018-01-31] MEDS: MUPIROCIN 2% OINT 22 GM TUBE NASAL SCH ×2 (08:20→20:42)
[2018-01-31 08:50] LABS: Glucose,Whole Blood 143 mg/dL (75-99)
[2018-01-31] MEDS: ceFAZolin IN SWFI 2 GM/20 ML SYRINGE IVP SCH ×2 (08:55→15:45)
[2018-01-31] MEDS: CLOPIDOGREL 75 MG TAB PO SCH (08:55)
[2018-01-31] MEDS ORDERED: METOPROLOL TARTRATE 12.5 MG TAB PO SCH (09:00)
[2018-01-31] MEDS ORDERED: PANTOPRAZOLE 40 MG/10 ML VIAL IVP SCH (09:00)
[2018-01-31] MEDS ORDERED: FUROSEMIDE 10 MG/ML 4 ML VIAL IV STA (09:09)
--- NOTE | 2018-01-31 09:36 | P.PN ---
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 POD #1 mitral valve repair with a #30 mm [employer] annular flex band, clip ligation of the left atrial appendage with a #35 mm Atriclip, coronary artery bypass grafting 2 with a reverse saphenous vein graft off the aorta to the circumflex coronary artery and the right coronary artery, endoscopic vein harvesting of his right greater saphenous vein, complete left-sided maze procedure using the radiofrequency ablation as well as cryoablation, intraoperative transesophageal echocardiogram. The patient was extubated at 1:36 AM, he is currently on a 50% Ventimask with oxygen saturations 92%. He is lying in bed with his head elevated, he is in no acute distress. He is achieving 1500 mL on his incentive spirometry. He denies any complaints of pain or shortness of breath at this time. Objective - Vital Signs Vital signs: Vital Signs Temp 97.2 F L 01/31/18 00:00 Pulse 81 01/31/18 08:09 Resp 19 01/31/18 08:00 BP 110/63 01/31/18 04:00 Pulse Ox 97 01/31/18 08:00 Intake & Output 01/30/18 01/31/18 01/31/18 18:59 06:59 18:59 Intake Total 633.547 2669.576 155.372 Output Total 2530 805 130 Balance -8661.098 3445.576 25.372 Weight 101.5 kg 110.5 kg Intake: IV 69 1638 138 .9NS Cardiac Output 40 80 20 0.9NS Pressure Bags 27 108 18 ACETAMINOPHEN IV (For NPO 200 ) 1,000 mg In Empty Bag 1 bag @ 400 mls/hr IVPB Q6HR [facility] Rx#:[id number] Albumin Human 5% 500 ml 500 In Empty Bag 1 bag @ 250 mls/hr IVPB ONCE ONE Rx#: [id number] Lactated Ringers 1,000 ml 550 100 @ 20 mls/hr IV .Q24H [facility] Rx#:[id number] Magnesium Sulfate-D5w Pmx 100 1 gm In Dextrose/Water 1 100ml.bag @ 100 mls/hr IVPB Q1H [facility] Rx#: [id number] Potassium Chloride 20 meq 100 In Water For Injection 1 100ml.bag @ 50 mls/hr IVPB ONCE ONE Rx#: [id number] Intake, IV Titration 837.087 497.576 17.372 Amount Albumin Human 5% 500 ml 500 In Empty Bag 1 bag @ 250 mls/hr IVPB ONCE ONE Rx#: [id number] Amiodarone 450 mg In 235.955 Dextrose 5% in Water 250 ml @ 1 MG/MIN 34.53 mls/ hr IV .Q7H31M PRN Rx#: [id number] Clevidipine Butyrate 25 9.534 0 10.6 mg In Empty Bag 1 bag @ 1 MG/HR 2 mls/hr IV .Q24H [facility] Rx#:[id number] Insulin Regular 100 unit 7.553 103.078 6.772 In Sodium Chloride 0.9% 100 ml @ Per Protocol IV .Q0M [facility] Rx#:[id number] Lactated Ringers 1,000 ml 120 40 @ 20 mls/hr IV .Q24H [facility] Rx#:[id number] Milrinone-D5w Pmx 20 mg 85.158 In Dextrose/Water 1 100ml .bag @ 0.2 MCG/KG/MIN 6. 09 mls/hr IV .[id number] [facility] Rx#:[id number] Norepinephrin 16 mg-0.9% 9.235 Ns Pmx 16 mg In 250 ml @ Titrate IV .Q0M [facility] Rx#: [id number] Potassium Chloride 10 meq 200 In Water For Injection 1 100ml.bag @ 100 mls/hr IVPB Q1H [facility] Rx#: [id number] Propofol 1,000 mg In 24.15 Empty Bag 1 bag @ Titrate IV .Q0M [facility] Rx#: [id number] Output: Chest Tube Drainage [address] X 1 [address] X 2 75 250 40 Urine 910 480 70 Estimated Blood Loss 1500 Other: Voiding Method Indwelling Catheter Indwelling Catheter ABP, PAP, CO, CI - Last Documented Arterial Blood Pressure 97/42 Pulmonary Artery Pressure 39/21 Cardiac Output 7 Cardiac Index 3.1 - Constitutional General appearance: Present: cooperative, no acute distress, obese - Respiratory Details: Lung sounds with scattered rhonchi throughout, diminished to his bilateral bases. Respirations are symmetrical and nonlabored. Oxygen saturation are 92% on a 50% Ventimask. He is achieving 1500 mL on his incentive spirometry. Mediastinal and left pleural chest tubes in place to low continuous wall suction. No air leak present. Draining thin serosanguineous drainage. Mediastinal chest tubes drained 160 mL in the last 8 hours, 340 mL since surgery. Left pleural chest tube drained 45 mL in the last 8 hours, 110 mL output since surgery. - Cardiovascular Details: Regular rhythm and tachycardic rate. S1 and S2 present, negative for S3, gallop or murmur. Sternum is stable. Bedside telemetry showing sinus tachycardia heart rate 100. Heart hugger is in place and he is demonstrating appropriate use. Right IJ cordis and [place] in place and functioning. Current cardiac output 7.0, cardiac index 3.1, PA pressures 38/20, CVP 12. Primacor drip remains at 0.2 mcg/kg/m. Atrial and ventricular epicardial pacemaker wires intact and connected to bedside backup pacemaker generator VVI 50. Knee-high JUSTIN hose and sequential compression devices in place to his bilateral lower extremities. No edema present. Right radial A-line intact and functioning. - Gastrointestinal Gastrointestinal Comment(s): Abdomen is soft, nontender nondistended. Active bowel sounds all 4 abdominal quadrants. Tolerating clear liquid diet. - Genitourinary Genitourinary Comment(s): Narvaez catheter for accurate I&O. Draining clear tuan urine. 300 mL output in the last 8 hours. - Integumentary Integumentary Comment(s): Skin is warm and dry. No clubbing or cyanosis present. Midline sternal incision clean and dry and approximated. No drainage or redness present. Right leg EVH sites clean dry and approximated. No drainage or redness present. - Neurologic Neurologic: Present: CNII-XII intact - Musculoskeletal Musculoskeletal: Present: gait normal, strength equal bilaterally - Psychiatric Psychiatric: Present: A&O x's 3, appropriate affect, intact judgment & insight - Allied health notes Allied health notes reviewed: nursing - Labs CBC & Chem 7: 01/31/18 04:00 01/31/18 04:00 Labs: Abnormal Lab Results - Last 24 Hours (Table) 01/29/18 01/30/18 01/30/18 Range/Units 09:46 08:50 10:25 WBC (3.8-10.6) k/uL RBC (4.30-5.90) m/uL Hgb (13.0-17.5) gm/dL Hct (39.0-53.0) % Plt Count (150-450) k/uL Neutrophils # (1.3-7.7) k/uL Lymphocytes # (1.0-4.8) k/uL Monocytes # (0-1.0) k/uL INR (<1.2) ABG pH 7.30 L (7.35-7.45) ABG pCO2 34 L 51 H (35-45) mmHg ABG pO2 >420 H 246 H (83-108) mmHg ABG HCO3 (21-25) mmol/L ABG Total CO2 27 H (19-24) mmol/L ABG O2 Saturation 100.0 H 99.7 H (94-97) % ABG Hematocrit (34.0-46.0) % ABG Sodium (135-146) mmol/L ABG Potassium (3.4-4.5) mmol/L ABG Ionized Calcium (4.5-5.3) mg/dL ABG Glucose 147 H 176 H (75-99) mg/dL ABG Lactic Acid (0.5-1.6) mmol/L Hemoglobin 11.5 L 11.0 L (13.0-17.5) gm/dL Glucose (74-99) mg/dL POC Glucose (mg/dL) (75-99) mg/dL Ionized Calcium Iván (4.5-5.3) mg/dL Magnesium (1.6-2.3) mg/dL Total Bilirubin (0.2-1.3) mg/dL AST (17-59) U/L Total Protein (6.3-8.2) g/dL Albumin (3.5-5.0) g/dL Arterial Blood Potassium (3.4-4.5) mmol/L Arterial Blood Glucose 147 H 176 H (75-99) mg/dL Crossmatch See Detail 01/30/18 01/30/18 01/30/18 Range/Units 10:49 11:26 11:58 WBC (3.8-10.6) k/uL RBC (4.30-5.90) m/uL Hgb (13.0-17.5) gm/dL Hct (39.0-53.0) % Plt Count (150-450) k/uL Neutrophils # (1.3-7.7) k/uL Lymphocytes # (1.0-4.8) k/uL Monocytes # (0-1.0) k/uL INR (<1.2) ABG pH 7.29 L (7.35-7.45) ABG pCO2 50 H (35-45) mmHg ABG pO2 349 H 260 H 275 H (83-108) mmHg ABG HCO3 (21-25) mmol/L ABG Total CO2 25 H 26 H 26 H (19-24) mmol/L ABG O2 Saturation 99.9 H 99.9 H 99.9 H (94-97) % ABG Hematocrit 26 L 32 L 30 L (34.0-46.0) % ABG Sodium 134 L (135-146) mmol/L ABG Potassium 5.4 H 4.6 H (3.4-4.5) mmol/L ABG Ionized Calcium 4.0 L 4.3 L 4.3 L (4.5-5.3) mg/dL ABG Glucose 239 H 287 H 277 H (75-99) mg/dL ABG Lactic Acid 1.7 H (0.5-1.6) mmol/L Hemoglobin 8.6 L 10.4 L 9.7 L (13.0-17.5) gm/dL Glucose (74-99) mg/dL POC Glucose (mg/dL) (75-99) mg/dL Ionized Calcium Iván (4.5-5.3) mg/dL Magnesium (1.6-2.3) mg/dL Total Bilirubin (0.2-1.3) mg/dL AST (17-59) U/L Total Protein (6.3-8.2) g/dL Albumin (3.5-5.0) g/dL Arterial Blood Potassium 5.4 H 4.6 H (3.4-4.5) mmol/L Arterial Blood Glucose 239 H 287 H 277 H (75-99) mg/dL Crossmatch 01/30/18 01/30/18 01/30/18 Range/Units 12:29 14:16 15:10 WBC 14.4 H (3.8-10.6) k/uL RBC 3.69 L (4.30-5.90) m/uL Hgb 10.6 L (13.0-17.5) gm/dL Hct 32.2 L (39.0-53.0) % Plt Count 145 L (150-450) k/uL Neutrophils # 12.3 H (1.3-7.7) k/uL Lymphocytes # 0.6 L (1.0-4.8) k/uL Monocytes # 1.2 H (0-1.0) k/uL INR (<1.2) ABG pH 7.34 L 7.32 L (7.35-7.45) ABG pCO2 51 H (35-45) mmHg ABG pO2 286 H 116 H (83-108) mmHg ABG HCO3 26 H (21-25) mmol/L ABG Total CO2 25 H 27 H (19-24) mmol/L ABG O2 Saturation 99.8 H 98.0 H (94-97) % ABG Hematocrit 31 L 33 L (34.0-46.0) % ABG Sodium (135-146) mmol/L ABG Potassium (3.4-4.5) mmol/L ABG Ionized Calcium 4.4 L (4.5-5.3) mg/dL ABG Glucose 229 H 129 H (75-99) mg/dL ABG Lactic Acid 2.1 H 1.7 H (0.5-1.6) mmol/L Hemoglobin 10.1 L 10.9 L (13.0-17.5) gm/dL Glucose (74-99) mg/dL POC Glucose (mg/dL) (75-99) mg/dL Ionized Calcium Iván (4.5-5.3) mg/dL Magnesium (1.6-2.3) mg/dL Total Bilirubin (0.2-1.3) mg/dL AST (17-59) U/L Total Protein (6.3-8.2) g/dL Albumin (3.5-5.0) g/dL Arterial Blood Potassium (3.4-4.5) mmol/L Arterial Blood Glucose 229 H 129 H (75-99) mg/dL Crossmatch 0501/30/18 01/30/18 Range/Units 15:10 15:10 15:32 WBC (3.8-10.6) k/uL RBC (4.30-5.90) m/uL Hgb (13.0-17.5) gm/dL Hct (39.0-53.0) % Plt Count (150-450) k/uL Neutrophils # (1.3-7.7) k/uL Lymphocytes # (1.0-4.8) k/uL Monocytes # (0-1.0) k/uL INR 1.3 H (<1.2) ABG pH 7.30 L (7.35-7.45) ABG pCO2 53 H (35-45) mmHg ABG pO2 113 H (83-108) mmHg ABG HCO3 26 H (21-25) mmol/L ABG Total CO2 28 H (19-24) mmol/L ABG O2 Saturation 97.8 H (94-97) % ABG Hematocrit (34.0-46.0) % ABG Sodium (135-146) mmol/L ABG Potassium (3.4-4.5) mmol/L ABG Ionized Calcium (4.5-5.3) mg/dL ABG Glucose (75-99) mg/dL ABG Lactic Acid (0.5-1.6) mmol/L Hemoglobin (13.0-17.5) gm/dL Glucose (74-99) mg/dL POC Glucose (mg/dL) (75-99) mg/dL Ionized Calcium Iván 5.6 H (4.5-5.3) mg/dL Magnesium 2.4 H (1.6-2.3) mg/dL Total Bilirubin 1.8 H (0.2-1.3) mg/dL AST 102 H (17-59) U/L Total Protein 5.7 L (6.3-8.2) g/dL Albumin 3.4 L (3.5-5.0) g/dL Arterial Blood Potassium (3.4-4.5) mmol/L Arterial Blood Glucose (75-99) mg/dL Crossmatch 01/30/18 01/30/18 01/30/18 Range/Units 15:58 17:06 17:53 WBC (3.8-10.6) k/uL RBC (4.30-5.90) m/uL Hgb (13.0-17.5) gm/dL Hct (39.0-53.0) % Plt Count (150-450) k/uL Neutrophils # (1.3-7.7) k/uL Lymphocytes # (1.0-4.8) k/uL Monocytes # (0-1.0) k/uL INR (<1.2) ABG pH (7.35-7.45) ABG pCO2 (35-45) mmHg ABG pO2 (83-108) mmHg ABG HCO3 (21-25) mmol/L ABG Total CO2 (19-24) mmol/L ABG O2 Saturation (94-97) % ABG Hematocrit (34.0-46.0) % ABG Sodium (135-146) mmol/L ABG Potassium (3.4-4.5) mmol/L ABG Ionized Calcium (4.5-5.3) mg/dL ABG Glucose (75-99) mg/dL ABG Lactic Acid (0.5-1.6) mmol/L Hemoglobin (13.0-17.5) gm/dL Glucose (74-99) mg/dL POC Glucose (mg/dL) 119 H 178 H 172 H (75-99) mg/dL Ionized Calcium Iván (4.5-5.3) mg/dL Magnesium (1.6-2.3) mg/dL Total Bilirubin (0.2-1.3) mg/dL AST (17-59) U/L Total Protein (6.3-8.2) g/dL Albumin (3.5-5.0) g/dL Arterial Blood Potassium (3.4-4.5) mmol/L Arterial Blood Glucose (75-99) mg/dL Crossmatch 01/30/18 01/30/18 01/30/18 Range/Units 17:55 18:50 20:05 WBC 12.0 H (3.8-10.6) k/uL RBC 3.45 L (4.30-5.90) m/uL Hgb 9.7 L (13.0-17.5) gm/dL Hct 30.4 L (39.0-53.0) % Plt Count 137 L (150-450) k/uL Neutrophils # 10.2 H (1.3-7.7) k/uL Lymphocytes # 0.7 L (1.0-4.8) k/uL Monocytes # (0-1.0) k/uL INR (<1.2) ABG pH (7.35-7.45) ABG pCO2 (35-45) mmHg ABG pO2 (83-108) mmHg ABG HCO3 (21-25) mmol/L ABG Total CO2 (19-24) mmol/L ABG O2 Saturation (94-97) % ABG Hematocrit (34.0-46.0) % ABG Sodium (135-146) mmol/L ABG Potassium (3.4-4.5) mmol/L ABG Ionized Calcium (4.5-5.3) mg/dL ABG Glucose (75-99) mg/dL ABG Lactic Acid (0.5-1.6) mmol/L Hemoglobin (13.0-17.5) gm/dL Glucose (74-99) mg/dL POC Glucose (mg/dL) 167 H 174 H (75-99) mg/dL Ionized Calcium Iván (4.5-5.3) mg/dL Magnesium (1.6-2.3) mg/dL Total Bilirubin (0.2-1.3) mg/dL AST (17-59) U/L Total Protein (6.3-8.2) g/dL Albumin (3.5-5.0) g/dL Arterial Blood Potassium (3.4-4.5) mmol/L Arterial Blood Glucose (75-99) mg/dL Crossmatch 01/30/18 01/30/18 01/30/18 Range/Units 20:56 21:00 21:00 WBC 10.8 H (3.8-10.6) k/uL RBC 3.40 L (4.30-5.90) m/uL Hgb 9.4 L (13.0-17.5) gm/dL Hct 30.1 L (39.0-53.0) % Plt Count 135 L (150-450) k/uL Neutrophils # 9.7 H (1.3-7.7) k/uL Lymphocytes # 0.3 L (1.0-4.8) k/uL Monocytes # (0-1.0) k/uL INR (<1.2) ABG pH (7.35-7.45) ABG pCO2 (35-45) mmHg ABG pO2 (83-108) mmHg ABG HCO3 (21-25) mmol/L ABG Total CO2 (19-24) mmol/L ABG O2 Saturation (94-97) % ABG Hematocrit (34.0-46.0) % ABG Sodium (135-146) mmol/L ABG Potassium (3.4-4.5) mmol/L ABG Ionized Calcium (4.5-5.3) mg/dL ABG Glucose (75-99) mg/dL ABG Lactic Acid (0.5-1.6) mmol/L Hemoglobin (13.0-17.5) gm/dL Glucose 161 H (74-99) mg/dL POC Glucose (mg/dL) 172 H (75-99) mg/dL Ionized Calcium Iván (4.5-5.3) mg/dL Magnesium (1.6-2.3) mg/dL Total Bilirubin (0.2-1.3) mg/dL AST (17-59) U/L Total Protein (6.3-8.2) g/dL Albumin (3.5-5.0) g/dL Arterial Blood Potassium (3.4-4.5) mmol/L Arterial Blood Glucose (75-99) mg/dL Crossmatch 01/30/18 01/30/18 01/31/18 Range/Units 22:08 23:17 00:04 WBC (3.8-10.6) k/uL RBC (4.30-5.90) m/uL Hgb (13.0-17.5) gm/dL Hct (39.0-53.0) % Plt Count (150-450) k/uL Neutrophils # (1.3-7.7) k/uL Lymphocytes # (1.0-4.8) k/uL Monocytes # (0-1.0) k/uL INR (<1.2) ABG pH (7.35-7.45) ABG pCO2 (35-45) mmHg ABG pO2 (83-108) mmHg ABG HCO3 (21-25) mmol/L ABG Total CO2 (19-24) mmol/L ABG O2 Saturation (94-97) % ABG Hematocrit (34.0-46.0) % ABG Sodium (135-146) mmol/L ABG Potassium (3.4-4.5) mmol/L ABG Ionized Calcium (4.5-5.3) mg/dL ABG Glucose (75-99) mg/dL ABG Lactic Acid (0.5-1.6) mmol/L Hemoglobin (13.0-17.5) gm/dL Glucose (74-99) mg/dL POC Glucose (mg/dL) 166 H 170 H 173 H (75-99) mg/dL Ionized Calcium Iván (4.5-5.3) mg/dL Magnesium (1.6-2.3) mg/dL Total Bilirubin (0.2-1.3) mg/dL AST (17-59) U/L Total Protein (6.3-8.2) g/dL Albumin (3.5-5.0) g/dL Arterial Blood Potassium (3.4-4.5) mmol/L Arterial Blood Glucose (75-99) mg/dL Crossmatch 01/31/18 01/31/18 01/31/18 Range/Units 00:57 01:20 02:14 WBC (3.8-10.6) k/uL RBC (4.30-5.90) m/uL Hgb (13.0-17.5) gm/dL Hct (39.0-53.0) % Plt Count (150-450) k/uL Neutrophils # (1.3-7.7) k/uL Lymphocytes # (1.0-4.8) k/uL Monocytes # (0-1.0) k/uL INR (<1.2) ABG pH (7.35-7.45) ABG pCO2 (35-45) mmHg ABG pO2 (83-108) mmHg ABG HCO3 (21-25) mmol/L ABG Total CO2 25 H (19-24) mmol/L ABG O2 Saturation 98.0 H (94-97) % ABG Hematocrit (34.0-46.0) % ABG Sodium (135-146) mmol/L ABG Potassium (3.4-4.5) mmol/L ABG Ionized Calcium (4.5-5.3) mg/dL ABG Glucose (75-99) mg/dL ABG Lactic Acid (0.5-1.6) mmol/L Hemoglobin (13.0-17.5) gm/dL Glucose (74-99) mg/dL POC Glucose (mg/dL) 180 H 170 H (75-99) mg/dL Ionized Calcium Iván (4.5-5.3) mg/dL Magnesium (1.6-2.3) mg/dL Total Bilirubin (0.2-1.3) mg/dL AST (17-59) U/L Total Protein (6.3-8.2) g/dL Albumin (3.5-5.0) g/dL Arterial Blood Potassium (3.4-4.5) mmol/L Arterial Blood Glucose (75-99) mg/dL Crossmatch 01/31/18 01/31/18 01/31/18 Range/Units 02:55 04:00 04:00 WBC 11.9 H (3.8-10.6) k/uL RBC 3.61 L (4.30-5.90) m/uL Hgb 10.2 L (13.0-17.5) gm/dL Hct 31.7 L (39.0-53.0) % Plt Count (150-450) k/uL Neutrophils # 10.6 H (1.3-7.7) k/uL Lymphocytes # 0.4 L (1.0-4.8) k/uL Monocytes # (0-1.0) k/uL INR 1.2 H (<1.2) ABG pH (7.35-7.45) ABG pCO2 (35-45) mmHg ABG pO2 (83-108) mmHg ABG HCO3 (21-25) mmol/L ABG Total CO2 (19-24) mmol/L ABG O2 Saturation (94-97) % ABG Hematocrit (34.0-46.0) % ABG Sodium (135-146) mmol/L ABG Potassium (3.4-4.5) mmol/L ABG Ionized Calcium (4.5-5.3) mg/dL ABG Glucose (75-99) mg/dL ABG Lactic Acid (0.5-1.6) mmol/L Hemoglobin (13.0-17.5) gm/dL Glucose (74-99) mg/dL POC Glucose (mg/dL) 151 H (75-99) mg/dL Ionized Calcium Iván (4.5-5.3) mg/dL Magnesium (1.6-2.3) mg/dL Total Bilirubin (0.2-1.3) mg/dL AST (17-59) U/L Total Protein (6.3-8.2) g/dL Albumin (3.5-5.0) g/dL Arterial Blood Potassium (3.4-4.5) mmol/L Arterial Blood Glucose (75-99) mg/dL Crossmatch 01/31/18 01/31/18 01/31/18 Range/Units 04:00 04:13 05:04 WBC (3.8-10.6) k/uL RBC (4.30-5.90) m/uL Hgb (13.0-17.5) gm/dL Hct (39.0-53.0) % Plt Count (150-450) k/uL Neutrophils # (1.3-7.7) k/uL Lymphocytes # (1.0-4.8) k/uL Monocytes # (0-1.0) k/uL INR (<1.2) ABG pH (7.35-7.45) ABG pCO2 (35-45) mmHg ABG pO2 (83-108) mmHg ABG HCO3 (21-25) mmol/L ABG Total CO2 (19-24) mmol/L ABG O2 Saturation (94-97) % ABG Hematocrit (34.0-46.0) % ABG Sodium (135-146) mmol/L ABG Potassium (3.4-4.5) mmol/L ABG Ionized Calcium (4.5-5.3) mg/dL ABG Glucose (75-99) mg/dL ABG Lactic Acid (0.5-1.6) mmol/L Hemoglobin (13.0-17.5) gm/dL Glucose 149 H (74-99) mg/dL POC Glucose (mg/dL) 143 H 154 H (75-99) mg/dL Ionized Calcium Iván (4.5-5.3) mg/dL Magnesium (1.6-2.3) mg/dL Total Bilirubin 1.9 H (0.2-1.3) mg/dL AST 99 H (17-59) U/L Total Protein 5.9 L (6.3-8.2) g/dL Albumin (3.5-5.0) g/dL Arterial Blood Potassium (3.4-4.5) mmol/L Arterial Blood Glucose (75-99) mg/dL Crossmatch 01/31/18 01/31/18 01/31/18 Range/Units 06:21 06:59 08:48 WBC (3.8-10.6) k/uL RBC (4.30-5.90) m/uL Hgb (13.0-17.5) gm/dL Hct (39.0-53.0) % Plt Count (150-450) k/uL Neutrophils # (1.3-7.7) k/uL Lymphocytes # (1.0-4.8) k/uL Monocytes # (0-1.0) k/uL INR (<1.2) ABG pH (7.35-7.45) ABG pCO2 (35-45) mmHg ABG pO2 (83-108) mmHg ABG HCO3 (21-25) mmol/L ABG Total CO2 (19-24) mmol/L ABG O2 Saturation (94-97) % ABG Hematocrit (34.0-46.0) % ABG Sodium (135-146) mmol/L ABG Potassium (3.4-4.5) mmol/L ABG Ionized Calcium (4.5-5.3) mg/dL ABG Glucose (75-99) mg/dL ABG Lactic Acid (0.5-1.6) mmol/L Hemoglobin (13.0-17.5) gm/dL Glucose (74-99) mg/dL POC Glucose (mg/dL) 154 H 161 H 143 H (75-99) mg/dL Ionized Calcium Iván (4.5-5.3) mg/dL Magnesium (1.6-2.3) mg/dL Total Bilirubin (0.2-1.3) mg/dL AST (17-59) U/L Total Protein (6.3-8.2) g/dL Albumin (3.5-5.0) g/dL Arterial Blood Potassium (3.4-4.5) mmol/L Arterial Blood Glucose (75-99) mg/dL Crossmatch Microbiology - Last 24 Hours (Table) 01/28/18 20:18 Nasal Screen MRSA/MSSA (MEGAN) - Final Nasal Swab - Imaging and Cardiology Chest x-ray: report reviewed, image reviewed Assessment and Plan (1) Hypertension Current Visit: Yes Status: Acute Code(s): I10 - ESSENTIAL (PRIMARY) HYPERTENSION SNOMED Code(s): 01747472 (2) Hyperlipidemia Current Visit: Yes Status: Acute Code(s): E78.5 - HYPERLIPIDEMIA, UNSPECIFIED SNOMED Code(s): 98809866 (3) Presence of stent in coronary artery in patient with coronary artery disease Current Visit: Yes Status: Acute Code(s): I25.10 - ATHSCL HEART DISEASE OF [place] CORONARY ARTERY W/O ANG PCTRS; Z95.5 - PRESENCE OF CORONARY ANGIOPLASTY IMPLANT AND GRAFT SNOMED Code(s): 652818667 (4) Severe mitral regurgitation by prior echocardiogram Current Visit: Yes Status: Acute Code(s): I34.0 - NONRHEUMATIC MITRAL (VALVE ) INSUFFICIENCY SNOMED Code(s): 98745601 (5) Diabetes mellitus type 2 in obese Current Visit: Yes Status: Acute Code(s): E11.69 - TYPE 2 DIABETES MELLITUS WITH OTHER SPECIFIED COMPLICATION; E66.9 - OBESITY, UNSPECIFIED SNOMED Code(s) : 05832437 (6) Enlarged prostate Current Visit: Yes Status: Acute Code(s): N40.0 - BENIGN PROSTATIC HYPERPLASIA WITHOUT LOWER URINRY TRACT SYMP SNOMED Code(s): 677214349 (7) Personal history of nicotine dependence Current Visit: Yes Status: Acute Code(s): Z87.891 - PERSONAL HISTORY OF NICOTINE DEPENDENCE SNOMED Code(s): 51503770 (8) Asthma Current Visit: Yes Status: Acute Code(s): J45.909 - UNSPECIFIED ASTHMA, UNCOMPLICATED SNOMED Code(s): 144974794 (9) COPD (chronic obstructive pulmonary disease) Current Visit: Yes Status: Acute Code(s): J44.9 - CHRONIC OBSTRUCTIVE PULMONARY DISEASE, UNSPECIFIED SNOMED Code(s): 59682988 Plan: 1. Continue aspirin, statin, Plavix and beta lencho. We will increase his metoprolol tartrate 25 mg by mouth twice a day. 2. We will discontinue his [place] catheter, keep his right IJ Cordis and placed to continuous CVP monitoring. 3. Encourage use of his incentive spirometry every hour while awake. 4. DVT and GI prophylaxis. 5. Pulmonary management per Dr. Marte's recommendations.. 6. Lasix 40 mg IV 1 today. 7. Wean Primacor to off. 8. Discontinue nitroglycerin drip. 9. Continue amiodarone drip until current bag finished, we will start amiodarone 400 mg by mouth twice a day for atrial fibrillation prophylaxis. 10. Increase activity as tolerated, PT/OT/cardiac rehab following. 11. Blood sugar management per primary care service. 12. Further recommendations to follow based on the patient's clinical course. Time with Patient: Greater than 30
[2018-01-31 10:05] LABS: Glucose,Whole Blood 125 mg/dL (75-99)
[2018-01-31 11:11] LABS: Glucose,Whole Blood 101 mg/dL (75-99)
[2018-01-31] MEDS: ALBUMIN HUMAN 5% 250 ML in EMPTY BAG 1 BAG IVPB PRN ×2 (11:45→12:18)
[2018-01-31] MEDS ORDERED: NOREPINEPHRIN 16 MG-0.9%NS PMX 16 MG/250 ML ML IV SCH (11:45)
[2018-01-31 12:08] LABS: Glucose,Whole Blood 128 mg/dL (75-99)
[2018-01-31 13:06] LABS: Glucose,Whole Blood 164 mg/dL (75-99)
--- NOTE | 2018-01-31 13:25 | PN ---
PROGRESS NOTE DATE OF SERVICE: 01/31/2018. He has been complaining of some shortness of breath. He is sitting up in a chair and has some pain in his chest. PHYSICAL EXAMINATION: Has a respiratory rate of 22, pulse rate of 92, temperature 97.4, blood pressure 96/48 with a pulmonary artery pressure of 40/22 with an elevated CVP of 16, O2 saturation on 2 L by nasal cannula is 99%. HEENT reveals pupils that are equal. Chest reveals decreased breath sounds in both bases with a chest tube and mediastinal tube in place. Cardiovascular system reveals S1, S2. Abdomen is soft. There is 1+ pedal edema. Chest x-ray shows evidence of pleural effusion, some atelectatic changes in the bases and cardiomegaly with bibasilar infiltrative changes. I/O is +1782 for the and subsequently for the is -293. Weight is inaccurate and has gone from 101.5 kilos to 110.5 kilos. IMPRESSION: At this time: 1. Severe mitral regurgitation status post mitral valve surgery. 2. Coronary artery disease status post coronary artery bypass. 3. Chronic obstructive pulmonary disease. 4. Diabetes mellitus. 5. Fluid overload with atelectatic changes. At this point in time from a pulmonary standpoint, encourage incentive spirometry. Attempt to keep him in negative fluid balance. Continue amiodarone because of his cardiac arrhythmia in the form of atrial fibrillation. Consider increasing activity and possible inpatient rehab placement for which Dr. Diego has been consulted. MMODL / IJN: [id number] /
[2018-01-31 14:01] LABS: Glucose,Whole Blood 136 mg/dL (75-99)
--- NOTE | 2018-01-31 14:02 | P.PN ---
Subjective Progress Note Date: 01/31/18 Mr. Maria is a 77-year-old gentleman with history of ischemic heart disease and severe mitral regurgitation. Patient is status post bypass surgery and also mitral valve repair. Patient is sitting in the chair. Pain is intermittent. Also having some wheezing and shortness of breath intermittently. He and output is marginal. Patient has received IV Lasix. His BUN/creatinine are normal. Patient is maintaining sinus rhythm. Postsurgical anemia. We'll continue current medical therapy. Incentive spirometry Objective - Vital Signs Vital signs: Vital Signs Temp 97.4 F L 01/31/18 12:00 Pulse 88 01/31/18 13:00 Resp 25 H 01/31/18 13:00 BP 110/63 01/31/18 04:00 Pulse Ox 99 01/31/18 13:00 Intake & Output 01/30/18 01/31/18 01/31/18 18:59 06:59 18:59 Intake Total 921.949 7907.576 617.923 Output Total 2530 805 402 Balance -9729.926 7478.576 215.923 Weight 101.5 kg 110.5 kg Intake: IV 69 1638 325 .9NS Cardiac Output 40 80 20 0.9NS Pressure Bags 27 108 45 ACETAMINOPHEN IV (For NPO 200 ) 1,000 mg In Empty Bag 1 bag @ 400 mls/hr IVPB Q6HR [facility] Rx#:[id number] Albumin Human 5% 500 ml 500 In Empty Bag 1 bag @ 250 mls/hr IVPB ONCE ONE Rx#: [id number] Lactated Ringers 1,000 ml 550 260 @ 20 mls/hr IV .Q24H [facility] Rx#:[id number] Magnesium Sulfate-D5w Pmx 100 1 gm In Dextrose/Water 1 100ml.bag @ 100 mls/hr IVPB Q1H [facility] Rx#: [id number] Potassium Chloride 20 meq 100 In Water For Injection 1 100ml.bag @ 50 mls/hr IVPB ONCE ONE Rx#: [id number] Intake, IV Titration 837.087 497.576 92.923 Amount Albumin Human 5% 500 ml 500 In Empty Bag 1 bag @ 250 mls/hr IVPB ONCE ONE Rx#: [id number] Amiodarone 450 mg In 235.955 Dextrose 5% in Water 250 ml @ 1 MG/MIN 34.53 mls/ hr IV .Q7H31M PRN Rx#: [id number] Clevidipine Butyrate 25 9.534 0 24.400 mg In Empty Bag 1 bag @ 1 MG/HR 2 mls/hr IV .Q24H [facility] Rx#:[id number] Insulin Regular 100 unit 7.553 103.078 67.898 In Sodium Chloride 0.9% 100 ml @ Per Protocol IV .Q0M [facility] Rx#:[id number] Lactated Ringers 1,000 ml 120 40 @ 20 mls/hr IV .Q24H [facility] Rx#:[id number] Milrinone-D5w Pmx 20 mg 85.158 In Dextrose/Water 1 100ml .bag @ 0.2 MCG/KG/MIN 6. 09 mls/hr IV .[id number] [facility] Rx#:[id number] Norepinephrin 16 mg-0.9% 9.235 Ns Pmx 16 mg In 250 ml @ Titrate IV .Q0M [facility] Rx#: [id number] Norepinephrin 16 mg-0.9% 0.625 Ns Pmx 16 mg In 250 ml @ Titrate IV .Q0M [facility] Rx#: [id number] Potassium Chloride 10 meq 200 In Water For Injection 1 100ml.bag @ 100 mls/hr IVPB Q1H [facility] Rx#: [id number] Propofol 1,000 mg In 24.15 Empty Bag 1 bag @ Titrate IV .Q0M [facility] Rx#: [id number] Oral 200 Output: Chest Tube Drainage [address] X 1 [address] X 2 75 250 80 Urine 910 480 256 Estimated Blood Loss 1500 Other: Voiding Method Indwelling Catheter Indwelling Catheter Indwelling Catheter ABP, PAP, CO, CI - Last Documented Arterial Blood Pressure 107/50 Pulmonary Artery Pressure 49/25 Cardiac Output 4.8 Cardiac Index 3.2 - Exam GENERAL EXAM: Patient is alert and oriented and in mild distress HEENT: Normocephalic. Normal reaction of pupils, equal size, normal range of extraocular motion. No erythema or exudates in the throat. NECK: No masses, no nuchal rigidity. CHEST: Postsurgical. LUNGS: Diminished breath sounds at bases HEART: Distant heart sounds ABDOMEN: Deferred SKIN: No rashes CENTRAL NERVOUS SYSTEM: No focal deficits. EXTREMITIES: No cyanosis, clubbing or edema. - Labs CBC & Chem 7: 01/31/18 04:00 01/31/18 04:00 Labs: Abnormal Lab Results - Last 24 Hours (Table) 01/29/18 01/30/18 01/30/18 Range/Units 09:46 08:50 10:25 WBC (3.8-10.6) k/uL RBC (4.30-5.90) m/uL Hgb (13.0-17.5) gm/dL Hct (39.0-53.0) % Plt Count (150-450) k/uL Neutrophils # (1.3-7.7) k/uL Lymphocytes # (1.0-4.8) k/uL Monocytes # (0-1.0) k/uL INR (<1.2) ABG pH 7.30 L (7.35-7.45) ABG pCO2 34 L 51 H (35-45) mmHg ABG pO2 >420 H 246 H (83-108) mmHg ABG HCO3 (21-25) mmol/L ABG Total CO2 27 H (19-24) mmol/L ABG O2 Saturation 100.0 H 99.7 H (94-97) % ABG Hematocrit (34.0-46.0) % ABG Sodium (135-146) mmol/L ABG Potassium (3.4-4.5) mmol/L ABG Ionized Calcium (4.5-5.3) mg/dL ABG Glucose 147 H 176 H (75-99) mg/dL ABG Lactic Acid (0.5-1.6) mmol/L Hemoglobin 11.5 L 11.0 L (13.0-17.5) gm/dL Glucose (74-99) mg/dL POC Glucose (mg/dL) (75-99) mg/dL Ionized Calcium Iván (4.5-5.3) mg/dL Magnesium (1.6-2.3) mg/dL Total Bilirubin (0.2-1.3) mg/dL AST (17-59) U/L Total Protein (6.3-8.2) g/dL Albumin (3.5-5.0) g/dL Arterial Blood Potassium (3.4-4.5) mmol/L Arterial Blood Glucose 147 H 176 H (75-99) mg/dL Crossmatch See Detail 01/30/18 01/30/18 01/30/18 Range/Units 10:49 11:26 11:58 WBC (3.8-10.6) k/uL RBC (4.30-5.90) m/uL Hgb (13.0-17.5) gm/dL Hct (39.0-53.0) % Plt Count (150-450) k/uL Neutrophils # (1.3-7.7) k/uL Lymphocytes # (1.0-4.8) k/uL Monocytes # (0-1.0) k/uL INR (<1.2) ABG pH 7.29 L (7.35-7.45) ABG pCO2 50 H (35-45) mmHg ABG pO2 349 H 260 H 275 H (83-108) mmHg ABG HCO3 (21-25) mmol/L ABG Total CO2 25 H 26 H 26 H (19-24) mmol/L ABG O2 Saturation 99.9 H 99.9 H 99.9 H (94-97) % ABG Hematocrit 26 L 32 L 30 L (34.0-46.0) % ABG Sodium 134 L (135-146) mmol/L ABG Potassium 5.4 H 4.6 H (3.4-4.5) mmol/L ABG Ionized Calcium 4.0 L 4.3 L 4.3 L (4.5-5.3) mg/dL ABG Glucose 239 H 287 H 277 H (75-99) mg/dL ABG Lactic Acid 1.7 H (0.5-1.6) mmol/L Hemoglobin 8.6 L 10.4 L 9.7 L (13.0-17.5) gm/dL Glucose (74-99) mg/dL POC Glucose (mg/dL) (75-99) mg/dL Ionized Calcium Iván (4.5-5.3) mg/dL Magnesium (1.6-2.3) mg/dL Total Bilirubin (0.2-1.3) mg/dL AST (17-59) U/L Total Protein (6.3-8.2) g/dL Albumin (3.5-5.0) g/dL Arterial Blood Potassium 5.4 H 4.6 H (3.4-4.5) mmol/L Arterial Blood Glucose 239 H 287 H 277 H (75-99) mg/dL Crossmatch 01/30/18 01/30/18 01/30/18 Range/Units 12:29 14:16 15:10 WBC 14.4 H (3.8-10.6) k/uL RBC 3.69 L (4.30-5.90) m/uL Hgb 10.6 L (13.0-17.5) gm/dL Hct 32.2 L (39.0-53.0) % Plt Count 145 L (150-450) k/uL Neutrophils # 12.3 H (1.3-7.7) k/uL Lymphocytes # 0.6 L (1.0-4.8) k/uL Monocytes # 1.2 H (0-1.0) k/uL INR (<1.2) ABG pH 7.34 L 7.32 L (7.35-7.45) ABG pCO2 51 H (35-45) mmHg ABG pO2 286 H 116 H (83-108) mmHg ABG HCO3 26 H (21-25) mmol/L ABG Total CO2 25 H 27 H (19-24) mmol/L ABG O2 Saturation 99.8 H 98.0 H (94-97) % ABG Hematocrit 31 L 33 L (34.0-46.0) % ABG Sodium (135-146) mmol/L ABG Potassium (3.4-4.5) mmol/L ABG Ionized Calcium 4.4 L (4.5-5.3) mg/dL ABG Glucose 229 H 129 H (75-99) mg/dL ABG Lactic Acid 2.1 H 1.7 H (0.5-1.6) mmol/L Hemoglobin 10.1 L 10.9 L (13.0-17.5) gm/dL Glucose (74-99) mg/dL POC Glucose (mg/dL) (75-99) mg/dL Ionized Calcium Iván (4.5-5.3) mg/dL Magnesium (1.6-2.3) mg/dL Total Bilirubin (0.2-1.3) mg/dL AST (17-59) U/L Total Protein (6.3-8.2) g/dL Albumin (3.5-5.0) g/dL Arterial Blood Potassium (3.4-4.5) mmol/L Arterial Blood Glucose 229 H 129 H (75-99) mg/dL Crossmatch 01/30/18 01/30/18 01/30/18 Range/Units 15:10 15:10 15:32 WBC (3.8-10.6) k/uL RBC (4.30-5.90) m/uL Hgb (13.0-17.5) gm/dL Hct (39.0-53.0) % Plt Count (150-450) k/uL Neutrophils # (1.3-7.7) k/uL Lymphocytes # (1.0-4.8) k/uL Monocytes # (0-1.0) k/uL INR 1.3 H (<1.2) ABG pH 7.30 L (7.35-7.45) ABG pCO2 53 H (35-45) mmHg ABG pO2 113 H (83-108) mmHg ABG HCO3 26 H (21-25) mmol/L ABG Total CO2 28 H (19-24) mmol/L ABG O2 Saturation 97.8 H (94-97) % ABG Hematocrit (34.0-46.0) % ABG Sodium (135-146) mmol/L ABG Potassium (3.4-4.5) mmol/L ABG Ionized Calcium (4.5-5.3) mg/dL ABG Glucose (75-99) mg/dL ABG Lactic Acid (0.5-1.6) mmol/L Hemoglobin (13.0-17.5) gm/dL Glucose (74-99) mg/dL POC Glucose (mg/dL) (75-99) mg/dL Ionized Calcium Iván 5.6 H (4.5-5.3) mg/dL Magnesium 2.4 H (1.6-2.3) mg/dL Total Bilirubin 1.8 H (0.2-1.3) mg/dL AST 102 H (17-59) U/L Total Protein 5.7 L (6.3-8.2) g/dL Albumin 3.4 L (3.5-5.0) g/dL Arterial Blood Potassium (3.4-4.5) mmol/L Arterial Blood Glucose (75-99) mg/dL Crossmatch 01/30/18 01/30/18 01/30/18 Range/Units 15:58 17:06 17:53 WBC (3.8-10.6) k/uL RBC (4.30-5.90) m/uL Hgb (13.0-17.5) gm/dL Hct (39.0-53.0) % Plt Count (150-450) k/uL Neutrophils # (1.3-7.7) k/uL Lymphocytes # (1.0-4.8) k/uL Monocytes # (0-1.0) k/uL INR (<1.2) ABG pH (7.35-7.45) ABG pCO2 (35-45) mmHg ABG pO2 (83-108) mmHg ABG HCO3 (21-25) mmol/L ABG Total CO2 (19-24) mmol/L ABG O2 Saturation (94-97) % ABG Hematocrit (34.0-46.0) % ABG Sodium (135-146) mmol/L ABG Potassium (3.4-4.5) mmol/L ABG Ionized Calcium (4.5-5.3) mg/dL ABG Glucose (75-99) mg/dL ABG Lactic Acid (0.5-1.6) mmol/L Hemoglobin (13.0-17.5) gm/dL Glucose (74-99) mg/dL POC Glucose (mg/dL) 119 H 178 H 172 H (75-99) mg/dL Ionized Calcium Iván (4.5-5.3) mg/dL Magnesium (1.6-2.3) mg/dL Total Bilirubin (0.2-1.3) mg/dL AST (17-59) U/L Total Protein (6.3-8.2) g/dL Albumin (3.5-5.0) g/dL Arterial Blood Potassium (3.4-4.5) mmol/L Arterial Blood Glucose (75-99) mg/dL Crossmatch 01/30/18 01/30/18 01/30/18 Range/Units 17:55 18:50 20:05 WBC 12.0 H (3.8-10.6) k/uL RBC 3.45 L (4.30-5.90) m/uL Hgb 9.7 L (13.0-17.5) gm/dL Hct 30.4 L (39.0-53.0) % Plt Count 137 L (150-450) k/uL Neutrophils # 10.2 H (1.3-7.7) k/uL Lymphocytes # 0.7 L (1.0-4.8) k/uL Monocytes # (0-1.0) k/uL INR (<1.2) ABG pH (7.35-7.45) ABG pCO2 (35-45) mmHg ABG pO2 (83-108) mmHg ABG HCO3 (21-25) mmol/L ABG Total CO2 (19-24) mmol/L ABG O2 Saturation (94-97) % ABG Hematocrit (34.0-46.0) % ABG Sodium (135-146) mmol/L ABG Potassium (3.4-4.5) mmol/L ABG Ionized Calcium (4.5-5.3) mg/dL ABG Glucose (75-99) mg/dL ABG Lactic Acid (0.5-1.6) mmol/L Hemoglobin (13.0-17.5) gm/dL Glucose (74-99) mg/dL POC Glucose (mg/dL) 167 H 174 H (75-99) mg/dL Ionized Calcium Iván (4.5-5.3) mg/dL Magnesium (1.6-2.3) mg/dL Total Bilirubin (0.2-1.3) mg/dL AST (17-59) U/L Total Protein (6.3-8.2) g/dL Albumin (3.5-5.0) g/dL Arterial Blood Potassium (3.4-4.5) mmol/L Arterial Blood Glucose (75-99) mg/dL Crossmatch 01/30/18 01/30/18 01/30/18 Range/Units 20:56 21:00 21:00 WBC 10.8 H (3.8-10.6) k/uL RBC 3.40 L (4.30-5.90) m/uL Hgb 9.4 L (13.0-17.5) gm/dL Hct 30.1 L (39.0-53.0) % Plt Count 135 L (150-450) k/uL Neutrophils # 9.7 H (1.3-7.7) k/uL Lymphocytes # 0.3 L (1.0-4.8) k/uL Monocytes # (0-1.0) k/uL INR (<1.2) ABG pH (7.35-7.45) ABG pCO2 (35-45) mmHg ABG pO2 (83-108) mmHg ABG HCO3 (21-25) mmol/L ABG Total CO2 (19-24) mmol/L ABG O2 Saturation (94-97) % ABG Hematocrit (34.0-46.0) % ABG Sodium (135-146) mmol/L ABG Potassium (3.4-4.5) mmol/L ABG Ionized Calcium (4.5-5.3) mg/dL ABG Glucose (75-99) mg/dL ABG Lactic Acid (0.5-1.6) mmol/L Hemoglobin (13.0-17.5) gm/dL Glucose 161 H (74-99) mg/dL POC Glucose (mg/dL) 172 H (75-99) mg/dL Ionized Calcium Iván (4.5-5.3) mg/dL Magnesium (1.6-2.3) mg/dL Total Bilirubin (0.2-1.3) mg/dL AST (17-59) U/L Total Protein (6.3-8.2) g/dL Albumin (3.5-5.0) g/dL Arterial Blood Potassium (3.4-4.5) mmol/L Arterial Blood Glucose (75-99) mg/dL Crossmatch 01/30/18 01/30/18 01/31/18 Range/Units 22:08 23:17 00:04 WBC (3.8-10.6) k/uL RBC (4.30-5.90) m/uL Hgb (13.0-17.5) gm/dL Hct (39.0-53.0) % Plt Count (150-450) k/uL Neutrophils # (1.3-7.7) k/uL Lymphocytes # (1.0-4.8) k/uL Monocytes # (0-1.0) k/uL INR (<1.2) ABG pH (7.35-7.45) ABG pCO2 (35-45) mmHg ABG pO2 (83-108) mmHg ABG HCO3 (21-25) mmol/L ABG Total CO2 (19-24) mmol/L ABG O2 Saturation (94-97) % ABG Hematocrit (34.0-46.0) % ABG Sodium (135-146) mmol/L ABG Potassium (3.4-4.5) mmol/L ABG Ionized Calcium (4.5-5.3) mg/dL ABG Glucose (75-99) mg/dL ABG Lactic Acid (0.5-1.6) mmol/L Hemoglobin (13.0-17.5) gm/dL Glucose (74-99) mg/dL POC Glucose (mg/dL) 166 H 170 H 173 H (75-99) mg/dL Ionized Calcium Iván (4.5-5.3) mg/dL Magnesium (1.6-2.3) mg/dL Total Bilirubin (0.2-1.3) mg/dL AST (17-59) U/L Total Protein (6.3-8.2) g/dL Albumin (3.5-5.0) g/dL Arterial Blood Potassium (3.4-4.5) mmol/L Arterial Blood Glucose (75-99) mg/dL Crossmatch 01/31/18 01/31/18 01/31/18 Range/Units 00:57 01:20 02:14 WBC (3.8-10.6) k/uL RBC (4.30-5.90) m/uL Hgb (13.0-17.5) gm/dL Hct (39.0-53.0) % Plt Count (150-450) k/uL Neutrophils # (1.3-7.7) k/uL Lymphocytes # (1.0-4.8) k/uL Monocytes # (0-1.0) k/uL INR (<1.2) ABG pH (7.35-7.45) ABG pCO2 (35-45) mmHg ABG pO2 (83-108) mmHg ABG HCO3 (21-25) mmol/L ABG Total CO2 25 H (19-24) mmol/L ABG O2 Saturation 98.0 H (94-97) % ABG Hematocrit (34.0-46.0) % ABG Sodium (135-146) mmol/L ABG Potassium (3.4-4.5) mmol/L ABG Ionized Calcium (4.5-5.3) mg/dL ABG Glucose (75-99) mg/dL ABG Lactic Acid (0.5-1.6) mmol/L Hemoglobin (13.0-17.5) gm/dL Glucose (74-99) mg/dL POC Glucose (mg/dL) 180 H 170 H (75-99) mg/dL Ionized Calcium Iván (4.5-5.3) mg/dL Magnesium (1.6-2.3) mg/dL Total Bilirubin (0.2-1.3) mg/dL AST (17-59) U/L Total Protein (6.3-8.2) g/dL Albumin (3.5-5.0) g/dL Arterial Blood Potassium (3.4-4.5) mmol/L Arterial Blood Glucose (75-99) mg/dL Crossmatch 01/31/18 01/31/18 01/31/18 Range/Units 02:55 04:00 04:00 WBC 11.9 H (3.8-10.6) k/uL RBC 3.61 L (4.30-5.90) m/uL Hgb 10.2 L (13.0-17.5) gm/dL Hct 31.7 L (39.0-53.0) % Plt Count (150-450) k/uL Neutrophils # 10.6 H (1.3-7.7) k/uL Lymphocytes # 0.4 L (1.0-4.8) k/uL Monocytes # (0-1.0) k/uL INR 1.2 H (<1.2) ABG pH (7.35-7.45) ABG pCO2 (35-45) mmHg ABG pO2 (83-108) mmHg ABG HCO3 (21-25) mmol/L ABG Total CO2 (19-24) mmol/L ABG O2 Saturation (94-97) % ABG Hematocrit (34.0-46.0) % ABG Sodium (135-146) mmol/L ABG Potassium (3.4-4.5) mmol/L ABG Ionized Calcium (4.5-5.3) mg/dL ABG Glucose (75-99) mg/dL ABG Lactic Acid (0.5-1.6) mmol/L Hemoglobin (13.0-17.5) gm/dL Glucose (74-99) mg/dL POC Glucose (mg/dL) 151 H (75-99) mg/dL Ionized Calcium Iván (4.5-5.3) mg/dL Magnesium (1.6-2.3) mg/dL Total Bilirubin (0.2-1.3) mg/dL AST (17-59) U/L Total Protein (6.3-8.2) g/dL Albumin (3.5-5.0) g/dL Arterial Blood Potassium (3.4-4.5) mmol/L Arterial Blood Glucose (75-99) mg/dL Crossmatch 01/31/18 01/31/18 01/31/18 Range/Units 04:00 04:13 05:04 WBC (3.8-10.6) k/uL RBC (4.30-5.90) m/uL Hgb (13.0-17.5) gm/dL Hct (39.0-53.0) % Plt Count (150-450) k/uL Neutrophils # (1.3-7.7) k/uL Lymphocytes # (1.0-4.8) k/uL Monocytes # (0-1.0) k/uL INR (<1.2) ABG pH (7.35-7.45) ABG pCO2 (35-45) mmHg ABG pO2 (83-108) mmHg ABG HCO3 (21-25) mmol/L ABG Total CO2 (19-24) mmol/L ABG O2 Saturation (94-97) % ABG Hematocrit (34.0-46.0) % ABG Sodium (135-146) mmol/L ABG Potassium (3.4-4.5) mmol/L ABG Ionized Calcium (4.5-5.3) mg/dL ABG Glucose (75-99) mg/dL ABG Lactic Acid (0.5-1.6) mmol/L Hemoglobin (13.0-17.5) gm/dL Glucose 149 H (74-99) mg/dL POC Glucose (mg/dL) 143 H 154 H (75-99) mg/dL Ionized Calcium Iván (4.5-5.3) mg/dL Magnesium (1.6-2.3) mg/dL Total Bilirubin 1.9 H (0.2-1.3) mg/dL AST 99 H (17-59) U/L Total Protein 5.9 L (6.3-8.2) g/dL Albumin (3.5-5.0) g/dL Arterial Blood Potassium (3.4-4.5) mmol/L Arterial Blood Glucose (75-99) mg/dL Crossmatch 01/31/18 01/31/18 01/31/18 Range/Units 06:21 06:59 08:48 WBC (3.8-10.6) k/uL RBC (4.30-5.90) m/uL Hgb (13.0-17.5) gm/dL Hct (39.0-53.0) % Plt Count (150-450) k/uL Neutrophils # (1.3-7.7) k/uL Lymphocytes # (1.0-4.8) k/uL Monocytes # (0-1.0) k/uL INR (<1.2) ABG pH (7.35-7.45) ABG pCO2 (35-45) mmHg ABG pO2 (83-108) mmHg ABG HCO3 (21-25) mmol/L ABG Total CO2 (19-24) mmol/L ABG O2 Saturation (94-97) % ABG Hematocrit (34.0-46.0) % ABG Sodium (135-146) mmol/L ABG Potassium (3.4-4.5) mmol/L ABG Ionized Calcium (4.5-5.3) mg/dL ABG Glucose (75-99) mg/dL ABG Lactic Acid (0.5-1.6) mmol/L Hemoglobin (13.0-17.5) gm/dL Glucose (74-99) mg/dL POC Glucose (mg/dL) 154 H 161 H 143 H (75-99) mg/dL Ionized Calcium Iván (4.5-5.3) mg/dL Magnesium (1.6-2.3) mg/dL Total Bilirubin (0.2-1.3) mg/dL AST (17-59) U/L Total Protein (6.3-8.2) g/dL Albumin (3.5-5.0) g/dL Arterial Blood Potassium (3.4-4.5) mmol/L Arterial Blood Glucose (75-99) mg/dL Crossmatch 01/31/18 01/31/18 01/31/18 Range/Units 10:03 11:10 12:06 WBC (3.8-10.6) k/uL RBC (4.30-5.90) m/uL Hgb (13.0-17.5) gm/dL Hct (39.0-53.0) % Plt Count (150-450) k/uL Neutrophils # (1.3-7.7) k/uL Lymphocytes # (1.0-4.8) k/uL Monocytes # (0-1.0) k/uL INR (<1.2) ABG pH (7.35-7.45) ABG pCO2 (35-45) mmHg ABG pO2 (83-108) mmHg ABG HCO3 (21-25) mmol/L ABG Total CO2 (19-24) mmol/L ABG O2 Saturation (94-97) % ABG Hematocrit (34.0-46.0) % ABG Sodium (135-146) mmol/L ABG Potassium (3.4-4.5) mmol/L ABG Ionized Calcium (4.5-5.3) mg/dL ABG Glucose (75-99) mg/dL ABG Lactic Acid (0.5-1.6) mmol/L Hemoglobin (13.0-17.5) gm/dL Glucose (74-99) mg/dL POC Glucose (mg/dL) 125 H 101 H 128 H (75-99) mg/dL Ionized Calcium Iván (4.5-5.3) mg/dL Magnesium (1.6-2.3) mg/dL Total Bilirubin (0.2-1.3) mg/dL AST (17-59) U/L Total Protein (6.3-8.2) g/dL Albumin (3.5-5.0) g/dL Arterial Blood Potassium (3.4-4.5) mmol/L Arterial Blood Glucose (75-99) mg/dL Crossmatch 01/31/18 Range/Units 13:03 WBC (3.8-10.6) k/uL RBC (4.30-5.90) m/uL Hgb (13.0-17.5) gm/dL Hct (39.0-53.0) % Plt Count (150-450) k/uL Neutrophils # (1.3-7.7) k/uL Lymphocytes # (1.0-4.8) k/uL Monocytes # (0-1.0) k/uL INR (<1.2) ABG pH (7.35-7.45) ABG pCO2 (35-45) mmHg ABG pO2 (83-108) mmHg ABG HCO3 (21-25) mmol/L ABG Total CO2 (19-24) mmol/L ABG O2 Saturation (94-97) % ABG Hematocrit (34.0-46.0) % ABG Sodium (135-146) mmol/L ABG Potassium (3.4-4.5) mmol/L ABG Ionized Calcium (4.5-5.3) mg/dL ABG Glucose (75-99) mg/dL ABG Lactic Acid (0.5-1.6) mmol/L Hemoglobin (13.0-17.5) gm/dL Glucose (74-99) mg/dL POC Glucose (mg/dL) 164 H (75-99) mg/dL Ionized Calcium Iván (4.5-5.3) mg/dL Magnesium (1.6-2.3) mg/dL Total Bilirubin (0.2-1.3) mg/dL AST (17-59) U/L Total Protein (6.3-8.2) g/dL Albumin (3.5-5.0) g/dL Arterial Blood Potassium (3.4-4.5) mmol/L Arterial Blood Glucose (75-99) mg/dL Crossmatch Microbiology - Last 24 Hours (Table) 01/28/18 20:18 Nasal Screen MRSA/MSSA (MEGAN) - Final Nasal Swab Assessment and Plan (1) H/O coronary artery bypass surgery Current Visit: Yes Status: Acute Code(s): Z95.1 - PRESENCE OF AORTOCORONARY BYPASS GRAFT SNOMED Code(s): 495063889 (2) History of mitral valve repair Current Visit: Yes Status: Acute Code(s): Z98.890 - OTHER SPECIFIED POSTPROCEDURAL STATES SNOMED Code(s): 114541602 (3) COPD (chronic obstructive pulmonary disease) Current Visit: Yes Status: Acute Code(s): J44.9 - CHRONIC OBSTRUCTIVE PULMONARY DISEASE, UNSPECIFIED SNOMED Code(s): 13806909 (4) Diabetes mellitus type 2 in obese Current Visit: Yes Status: Acute Code(s): E11.69 - TYPE 2 DIABETES MELLITUS WITH OTHER SPECIFIED COMPLICATION; E66.9 - OBESITY, UNSPECIFIED SNOMED Code(s) : 44675666 (5) Hyperlipidemia Current Visit: Yes Status: Acute Code(s): E78.5 - HYPERLIPIDEMIA, UNSPECIFIED SNOMED Code(s): 43872594 Plan: Patient is status post bypass surgery and mitral valve repair. Patient is sitting in the chair. Seemed to have mild chest discomfort, intermittent shortness of breath. No Sigmund arrhythmias noted. Renal function is normal. We will continue current medical management. Incentive spirometry. Patient also requiring IV Levophed for blood pressure support.
[2018-01-31] MEDS ORDERED: HYDROcodone/APAP 5-325MG 1 EACH TAB PO PRN (14:03)
[2018-01-31] MEDS ORDERED: BISACODYL 10 MG SUPP RECTAL PRN (14:04)
[2018-01-31 14:57] LABS: Glucose,Whole Blood 107 mg/dL (75-99)
[2018-01-31] MEDS: HYDROcodone/APAP 5-325MG 1 EACH TAB PO PRN ×2 (15:05→23:54)
[2018-01-31] MEDS: IPRATROPIUM-ALBUTEROL 3 ML NEB INHALATION SCH ×2 (15:21→19:32)
[2018-01-31 16:15] LABS: Glucose,Whole Blood 131 mg/dL (75-99)
--- NOTE | 2018-01-31 16:37 | P.PN ---
Subjective Progress Note Date: 01/31/18 This is a 69 HO pleasant gentleman patient of Dr. Cardoso with underlying history of CAD with prior PCI stent placement, hypertension hypertensive cardiovascular disease hyperlipidemia and diabetes mellitus type 2 asthma OR arthritis COPD admitted to [facility] and was found on imaging studies secondary to his chest pain new onset atrial fibrillation with RVR and shortness of breath, cardiac cath performed 01/26/2018 showing 80% stenosis of RCA, 70% stenoses of the left circumflex involving the AV groove circumflex ostial portion, severe mitral regurgitation, dilated left ventricle ejection fraction 50-55%. He was transferred to [facility] for mitral valve placement and CABG 2 vessel critical stenosis involving left circumflex and right coronary artery. CABG most likely would be anticipated to be done January 30 He was seen at [facility] by , for pulmonary clearance, pertinent laboratories creatinine 1.01 hemoglobin 12.4 TSH 0.93 hemoglobin A1c not done,. Patient currently is on basal bolus Levemir and premeal coverage, instead of home oral medication, continue on Januvia 100 mg at bedtime, cardiology to see, Dr. Marte for consult and consult to Dr. Spicer cardiothoracic, Dr. Salas cardiology. He should maintain IV heparin 01/29: Patient is followed by Dr. Marte and Dr. VC Fry. Patient is scheduled for coronary artery bypass surgery and mitral valve replacement or repair on Friday. Blood sugars are running 156-193. Additional 2units of Novolog added premeal until surgery. Patient states his blood sugars are usually 100-130 at home. 01/30: Patient is going for surgery. 01/31 Patient is postoperative day 1 with mitral valve repair, coronary artery bypass grafting X2. Patient examined bed side. Appears tired. Complains of shortness of breath intermittently. Currently on 2 L of oxygen. Blood pressure continues to drop to systolic in low 80. Initiated on norepinephrine added low -dose. Chest x-ray suggested worsening vascular congestion and pleural effusion. Received 1 dose 80 mg IV Lasix today [place]-Manish catheter removed today. Patient is extubated since this morning. Objective - Vital Signs Vital signs: Vital Signs Temp 97.4 F L 01/31/18 12:00 Pulse 89 01/31/18 15:55 Resp 17 01/31/18 15:55 BP 81/51 01/31/18 15:55 Pulse Ox 99 01/31/18 15:55 Intake & Output 01/30/18 01/31/18 01/31/18 18:59 06:59 18:59 Intake Total 504.922 8948.576 1806.156 Output Total 2530 805 436 Balance -3551.942 2760.576 1370.156 Weight 101.5 kg 110.5 kg 110.5 kg Intake: IV 69 1638 995 .9NS Cardiac Output 40 80 20 0.9NS Pressure Bags 27 108 85 ACETAMINOPHEN IV (For NPO 200 100 ) 1,000 mg In Empty Bag 1 bag @ 400 mls/hr IVPB Q6HR SHAUNA Rx#:[id number] Albumin Human 5% 500 ml 500 500 In Empty Bag 1 bag @ 250 mls/hr IVPB ONCE ONE Rx#: [id number] Lactated Ringers 1,000 ml 550 290 @ 20 mls/hr IV .Q24H SHAUNA Rx#:[id number] Magnesium Sulfate-D5w Pmx 100 1 gm In Dextrose/Water 1 100ml.bag @ 100 mls/hr IVPB Q1H SHAUNA Rx#: [id number] Potassium Chloride 20 meq 100 In Water For Injection 1 100ml.bag @ 50 mls/hr IVPB ONCE ONE Rx#: [id number] Intake, IV Titration 837.087 497.576 411.156 Amount Albumin Human 5% 500 ml 500 In Empty Bag 1 bag @ 250 mls/hr IVPB ONCE ONE Rx#: [id number] Amiodarone 450 mg In 235.955 259 Dextrose 5% in Water 250 ml @ 1 MG/MIN 34.53 mls/ hr IV .Q7H31M PRN Rx#: [id number] Clevidipine Butyrate 25 9.534 0 24.400 mg In Empty Bag 1 bag @ 1 MG/HR 2 mls/hr IV .Q24H SHAUNA Rx#:[id number] Insulin Regular 100 unit 7.553 103.078 97.006 In Sodium Chloride 0.9% 100 ml @ Per Protocol IV .Q0M SHAUNA Rx#:[id number] Lactated Ringers 1,000 ml 120 40 @ 20 mls/hr IV .Q24H SHAUNA Rx#:[id number] Milrinone-D5w Pmx 20 mg 85.158 In Dextrose/Water 1 100ml .bag @ 0.2 MCG/KG/MIN 6. 09 mls/hr IV .[id number] SHAUNA Rx#:[id number] Norepinephrin 16 mg-0.9% 9.235 Ns Pmx 16 mg In 250 ml @ Titrate IV .Q0M SHAUNA Rx#: [id number] Norepinephrin 16 mg-0.9% 30.750 Ns Pmx 16 mg In 250 ml @ Titrate IV .Q0M SHAUNA Rx#: [id number] Potassium Chloride 10 meq 200 In Water For Injection 1 100ml.bag @ 100 mls/hr IVPB Q1H SHAUNA Rx#: [id number] Propofol 1,000 mg In 24.15 Empty Bag 1 bag @ Titrate IV .Q0M SHAUNA Rx#: [id number] Oral 400 Output: Chest Tube Drainage [address] X 1 [address] X 2 75 250 80 Urine 910 480 286 Estimated Blood Loss 1500 Other: Voiding Method Indwelling Catheter Indwelling Catheter Indwelling Catheter ABP, PAP, CO, CI - Last Documented Arterial Blood Pressure 85/42 Pulmonary Artery Pressure 39/20 Cardiac Output 4.5 Cardiac Index 2.0 - Exam General appearance: cooperative, no acute distress,appear sleepy - EENT Eyes: anicteric sclerae, EOMI, PERRLA, dentition normal, normal appearance ENT: NA/AT, normal oropharynx - Neck Neck: no lymphadenopathy, normal ROM, no other, no rigidity, no stridor, no thyromegaly - Respiratory Respiratory: bilateral: diminished rales, rhonchi at bases,Mediastinal and left pleural chest tubes in place to low continuous wall suction. - Cardiovascular Rhythm: regular Heart sounds: normal: S1, S2 Abnormal Heart Sounds: no systolic murmur, no diastolic murmur, no rub, no S3 Gallop, no S4 Gallop, no click, no other - Gastrointestinal General gastrointestinal: normal bowel sounds, soft - Integumentary Integumentary: normal, normal turgor - Neurologic Neurologic: CNII-XII intact - Musculoskeletal Musculoskeletal: strength equal bilaterally - Psychiatric Psychiatric: A&O x's 3, appropriate affect, intact judgment & insight - Labs CBC & Chem 7: 01/31/18 04:00 01/31/18 04:00 Labs: Abnormal Lab Results - Last 24 Hours (Table) 01/29/18 01/30/18 01/30/18 Range/Units 09:46 17:06 17:53 WBC (3.8-10.6) k/uL RBC (4.30-5.90) m/uL Hgb (13.0-17.5) gm/dL Hct (39.0-53.0) % Plt Count (150-450) k/uL Neutrophils # (1.3-7.7) k/uL Lymphocytes # (1.0-4.8) k/uL INR (<1.2) ABG Total CO2 (19-24) mmol/L ABG O2 Saturation (94-97) % Glucose (74-99) mg/dL POC Glucose (mg/dL) 178 H 172 H (75-99) mg/dL Total Bilirubin (0.2-1.3) mg/dL AST (17-59) U/L Total Protein (6.3-8.2) g/dL Crossmatch See Detail 01/30/18 01/30/18 01/30/18 Range/Units 17:55 18:50 20:05 WBC 12.0 H (3.8-10.6) k/uL RBC 3.45 L (4.30-5.90) m/uL Hgb 9.7 L (13.0-17.5) gm/dL Hct 30.4 L (39.0-53.0) % Plt Count 137 L (150-450) k/uL Neutrophils # 10.2 H (1.3-7.7) k/uL Lymphocytes # 0.7 L (1.0-4.8) k/uL INR (<1.2) ABG Total CO2 (19-24) mmol/L ABG O2 Saturation (94-97) % Glucose (74-99) mg/dL POC Glucose (mg/dL) 167 H 174 H (75-99) mg/dL Total Bilirubin (0.2-1.3) mg/dL AST (17-59) U/L Total Protein (6.3-8.2) g/dL Crossmatch 01/30/18 01/30/18 01/30/18 Range/Units 20:56 21:00 21:00 WBC 10.8 H (3.8-10.6) k/uL RBC 3.40 L (4.30-5.90) m/uL Hgb 9.4 L (13.0-17.5) gm/dL Hct 30.1 L (39.0-53.0) % Plt Count 135 L (150-450) k/uL Neutrophils # 9.7 H (1.3-7.7) k/uL Lymphocytes # 0.3 L (1.0-4.8) k/uL INR (<1.2) ABG Total CO2 (19-24) mmol/L ABG O2 Saturation (94-97) % Glucose 161 H (74-99) mg/dL POC Glucose (mg/dL) 172 H (75-99) mg/dL Total Bilirubin (0.2-1.3) mg/dL AST (17-59) U/L Total Protein (6.3-8.2) g/dL Crossmatch 01/30/18 01/30/18 01/31/18 Range/Units 22:08 23:17 00:04 WBC (3.8-10.6) k/uL RBC (4.30-5.90) m/uL Hgb (13.0-17.5) gm/dL Hct (39.0-53.0) % Plt Count (150-450) k/uL Neutrophils # (1.3-7.7) k/uL Lymphocytes # (1.0-4.8) k/uL INR (<1.2) ABG Total CO2 (19-24) mmol/L ABG O2 Saturation (94-97) % Glucose (74-99) mg/dL POC Glucose (mg/dL) 166 H 170 H 173 H (75-99) mg/dL Total Bilirubin (0.2-1.3) mg/dL AST (17-59) U/L Total Protein (6.3-8.2) g/dL Crossmatch 01/31/18 01/31/18 01/31/18 Range/Units 00:57 01:20 02:14 WBC (3.8-10.6) k/uL RBC (4.30-5.90) m/uL Hgb (13.0-17.5) gm/dL Hct (39.0-53.0) % Plt Count (150-450) k/uL Neutrophils # (1.3-7.7) k/uL Lymphocytes # (1.0-4.8) k/uL INR (<1.2) ABG Total CO2 25 H (19-24) mmol/L ABG O2 Saturation 98.0 H (94-97) % Glucose (74-99) mg/dL POC Glucose (mg/dL) 180 H 170 H (75-99) mg/dL Total Bilirubin (0.2-1.3) mg/dL AST (17-59) U/L Total Protein (6.3-8.2) g/dL Crossmatch 01/31/18 01/31/18 01/31/18 Range/Units 02:55 04:00 04:00 WBC 11.9 H (3.8-10.6) k/uL RBC 3.61 L (4.30-5.90) m/uL Hgb 10.2 L (13.0-17.5) gm/dL Hct 31.7 L (39.0-53.0) % Plt Count (150-450) k/uL Neutrophils # 10.6 H (1.3-7.7) k/uL Lymphocytes # 0.4 L (1.0-4.8) k/uL INR 1.2 H (<1.2) ABG Total CO2 (19-24) mmol/L ABG O2 Saturation (94-97) % Glucose (74-99) mg/dL POC Glucose (mg/dL) 151 H (75-99) mg/dL Total Bilirubin (0.2-1.3) mg/dL AST (17-59) U/L Total Protein (6.3-8.2) g/dL Crossmatch 01/31/18 01/31/18 01/31/18 Range/Units 04:00 04:13 05:04 WBC (3.8-10.6) k/uL RBC (4.30-5.90) m/uL Hgb (13.0-17.5) gm/dL Hct (39.0-53.0) % Plt Count (150-450) k/uL Neutrophils # (1.3-7.7) k/uL Lymphocytes # (1.0-4.8) k/uL INR (<1.2) ABG Total CO2 (19-24) mmol/L ABG O2 Saturation (94-97) % Glucose 149 H (74-99) mg/dL POC Glucose (mg/dL) 143 H 154 H (75-99) mg/dL Total Bilirubin 1.9 H (0.2-1.3) mg/dL AST 99 H (17-59) U/L Total Protein 5.9 L (6.3-8.2) g/dL Crossmatch 01/31/18 01/31/18 01/31/18 Range/Units 06:21 06:59 08:48 WBC (3.8-10.6) k/uL RBC (4.30-5.90) m/uL Hgb (13.0-17.5) gm/dL Hct (39.0-53.0) % Plt Count (150-450) k/uL Neutrophils # (1.3-7.7) k/uL Lymphocytes # (1.0-4.8) k/uL INR (<1.2) ABG Total CO2 (19-24) mmol/L ABG O2 Saturation (94-97) % Glucose (74-99) mg/dL POC Glucose (mg/dL) 154 H 161 H 143 H (75-99) mg/dL Total Bilirubin (0.2-1.3) mg/dL AST (17-59) U/L Total Protein (6.3-8.2) g/dL Crossmatch 01/31/18 01/31/18 01/31/18 Range/Units 10:03 11:10 12:06 WBC (3.8-10.6) k/uL RBC (4.30-5.90) m/uL Hgb (13.0-17.5) gm/dL Hct (39.0-53.0) % Plt Count (150-450) k/uL Neutrophils # (1.3-7.7) k/uL Lymphocytes # (1.0-4.8) k/uL INR (<1.2) ABG Total CO2 (19-24) mmol/L ABG O2 Saturation (94-97) % Glucose (74-99) mg/dL POC Glucose (mg/dL) 125 H 101 H 128 H (75-99) mg/dL Total Bilirubin (0.2-1.3) mg/dL AST (17-59) U/L Total Protein (6.3-8.2) g/dL Crossmatch 01/31/18 01/31/18 01/31/18 Range/Units 13:03 13:59 14:55 WBC (3.8-10.6) k/uL RBC (4.30-5.90) m/uL Hgb (13.0-17.5) gm/dL Hct (39.0-53.0) % Plt Count (150-450) k/uL Neutrophils # (1.3-7.7) k/uL Lymphocytes # (1.0-4.8) k/uL INR (<1.2) ABG Total CO2 (19-24) mmol/L ABG O2 Saturation (94-97) % Glucose (74-99) mg/dL POC Glucose (mg/dL) 164 H 136 H 107 H (75-99) mg/dL Total Bilirubin (0.2-1.3) mg/dL AST (17-59) U/L Total Protein (6.3-8.2) g/dL Crossmatch 01/31/18 Range/Units 16:14 WBC (3.8-10.6) k/uL RBC (4.30-5.90) m/uL Hgb (13.0-17.5) gm/dL Hct (39.0-53.0) % Plt Count (150-450) k/uL Neutrophils # (1.3-7.7) k/uL Lymphocytes # (1.0-4.8) k/uL INR (<1.2) ABG Total CO2 (19-24) mmol/L ABG O2 Saturation (94-97) % Glucose (74-99) mg/dL POC Glucose (mg/dL) 131 H (75-99) mg/dL Total Bilirubin (0.2-1.3) mg/dL AST (17-59) U/L Total Protein (6.3-8.2) g/dL Crossmatch Microbiology - Last 24 Hours (Table) 01/28/18 20:18 Nasal Screen MRSA/MSSA (MEGAN) - Final Nasal Swab Assessment and Plan Plan: 1. Severe mitral regurgitation and CAD with 2 vessel critical stenosis s/p CABG , and mitral valve repair POD1 , Dr. Nayan from cardiovascular surgery. Cardiology is following. Dr. Vides is covering for intensive care management. extubated 2. Diabetes mellitus type 2 previous oral medications have been discontinued mainly Glucotrol and metformin, continue on Janumet, Levemir at 10 units every at bedtime, and pre-meal NovoLog and correctional scale until diet has been optimized postop 3. New onset atrial fibrillation, paroxysmal, currently on IV heparin and Toprol-XL 4. CKD stage II with baseline creatinine 1.01, continue to monitor. Debility, 5. CAD with previous PCI and stent placement with recent cardiac cath [address] Reynolds found to have 60-70% stenosis involving left circumflex AV groove circumflex ostial portion, and RCA 80% stenosis mid RCA, EF 50-55% left ventricle end-diastolic pressure 14 severe mitral regurgitation. Continue lisinopril 10 mg twice a day, metoprolol 50 mg daily aspirin Lipitor 40 6. BPH without urinary tract symptomatology. Continue Flomax or 0.8 mg at bedtime daily. Monitor for urinary retention. 7. Mild intermittent asthma without any current exacerbation with COPD and when necessary nebulizer, incentive spirometry, 8. Hypertensive cardiovascular disease. On Toprol-XL. 9. History of skin cancer 10. Osteoarthritis, generalized. 11. Hyperlipidemia on Lipitor 40 mg daily GI prophylaxis DVT prophylaxis currently on IV heparin Discharge plan: To be determined
[2018-01-31 16:44] LABS: ABG HCO3 18 mmol/L (21-25); ABG PCO2 31 mmHg (35-45); ABG PH 7.38 (7.35-7.45); ABG PO2 76 mmHg (83-108); ABG TCO2 19 mmol/L (19-24)
[2018-01-31 17:07] LABS: Glucose,Whole Blood 146 mg/dL (75-99)
[2018-01-31] MEDS ORDERED: INSULIN ASPART 100 UNIT/ML 1 ML 10 ML VIAL SQ SCH (17:30)
[2018-01-31 18:13] LABS: Glucose,Whole Blood 133 mg/dL (75-99)
[2018-01-31 19:05] LABS: Glucose,Whole Blood 107 mg/dL (75-99)
[2018-01-31] MEDS: LACTATED RINGERS 1,000 ML IV SCH (19:51)
[2018-01-31 20:04] LABS: Glucose,Whole Blood 117 mg/dL (75-99)
[2018-01-31] MEDS: SENNOSIDES-DOCUSATE SODIUM 1 EACH TAB PO SCH (20:42)
[2018-01-31] MEDS: LINAGLIPTIN 5 MG TABLET PO SCH (20:42)
[2018-01-31] MEDS ORDERED: TAMSULOSIN 0.4 MG CAP.ER.24H PO SCH (21:00)
[2018-01-31] MEDS ORDERED: INSULIN DETEMIR 100 UNIT/ML 10 ML VIAL SQ SCH (21:00)
[2018-01-31 21:13] LABS: Glucose,Whole Blood 151 mg/dL (75-99)
[2018-01-31] MEDS ORDERED: FUROSEMIDE 10 MG/ML 10 ML VIAL IV STA (21:35)
[2018-01-31 22:17] LABS: Glucose,Whole Blood 145 mg/dL (75-99)
[2018-01-31 23:08] LABS: Glucose,Whole Blood 127 mg/dL (75-99)
[2018-02-01 00:04] LABS: Glucose,Whole Blood 111 mg/dL (75-99)
[2018-02-01] MEDS ORDERED: METOPROLOL TARTRATE 25 MG TAB PO STA (00:10)
[2018-02-01] MEDS: HEPARIN SODIUM,PORCINE 5,000 UNIT/ML 1 ML VIAL SQ SCH ×4 (01:01→23:59)
[2018-02-01 01:09] LABS: Glucose,Whole Blood 121 mg/dL (75-99)
[2018-02-01] MEDS: FUROSEMIDE 250 MG in SODIUM CHLORIDE 0.9% 225 ML IVP SCH ×3 (01:21→16:06)
--- NOTE | 2018-02-01 01:51 | XR ---
EXAMINATION TYPE: XR chest 1V portable DATE OF EXAM: 02/01/2018 COMPARISON: 01/31/2018 HISTORY: Postop cardiac surgery TECHNIQUE: Single frontal view of the chest is obtained. FINDINGS: Exam is limited due to technique. There is left chest tube. I see no pneumothorax. Trachea is midline. There are chest leads. Cardiac silhouette appears enlarged. Lungs are clear of consolida tion. There is no sign of a pneumothorax. There are sternal wires. There is right jugular catheter wi th the tip probably in the main pulmonary artery. IMPRESSION: Limited exam. No pneumothorax. There is improved aeration of the lung bases compared to exam yesterday. No gross heart failure.
[2018-02-01 02:07] LABS: Glucose,Whole Blood 123 mg/dL (75-99)
--- NOTE | 2018-02-01 02:34 | XR ---
EXAMINATION TYPE: XR chest 1V portable DATE OF EXAM: 02/01/2018 COMPARISON: NONE HISTORY: Postop TECHNIQUE: Single frontal view of the chest is obtained. FINDINGS: There is left chest tube in good position. There are bilateral tubes over the heart. There is no pneumothorax. There is no heart failure. Lungs are clear of consolidation. I see no pleural ef fusion. There are sternal wires. There is right jugular catheter with the tip in the pulmonary artery . Trachea is midline. Cardiac silhouette is slightly enlarged. IMPRESSION: Tubing appears in good position. No gross heart failure. Slight increased cardiac silhou ette could relate to small pericardial effusion.
[2018-02-01 02:45] LABS: ABG HCO3 21 mmol/L (21-25); ABG Oxygen Saturation 95.1 % (94-97); ABG PCO2 33 mmHg (35-45); ABG PH 7.41 (7.35-7.45); ABG PO2 72 mmHg (83-108); ABG TCO2 22 mmol/L (19-24)
[2018-02-01 03:19] LABS: Glucose,Whole Blood 105 mg/dL (75-99)
[2018-02-01 04:19] LABS: Glucose,Whole Blood 111 mg/dL (75-99)
[2018-02-01 04:39] LABS: Ionized Calcium 4.6 mg/dL (4.5-5.3)
[2018-02-01 04:41] LABS: INR 1.1 (<1.2); Partial Thromboplastin Time 25.9 sec (22.0-30.0)
[2018-02-01 04:43] LABS: HCT 30.2 % (39.0-53.0); HGB 9.7 gm/dL (13.0-17.5); MCH 28.2 pg (25.0-35.0); MCHC 32.1 g/dL (31.0-37.0); Mean Platelet Volume 8.9; Platelet Count 166 k/uL (150-450); RBC 3.44 m/uL (4.30-5.90); RDW 14.8 % (11.5-15.5); WBC 18.2 k/uL (3.8-10.6)
[2018-02-01 04:48] LABS: Albumin 3.7 g/dL (3.5-5.0); Calcium 8.9 mg/dL (8.4-10.2); Magnesium 2.4 mg/dL (1.6-2.3); Potassium 4.8 mmol/L (3.5-5.1); Total Bilirubin 1.2 mg/dL (0.2-1.3); Total Protein 5.9 g/dL (6.3-8.2)
[2018-02-01] MEDS: ONDANSETRON 4 MG/2 ML VIAL IVP PRN ×3 (05:00→19:56)
[2018-02-01] MEDS: CLEVIDIPINE BUTYRATE 25 MG in EMPTY BAG 1 BAG IV SCH (05:00)
[2018-02-01 05:12] LABS: Band Neutrophils % 1 %; Basophils # (M) 0.18 k/uL (0-0.2); Lymphocytes # (M) 0.55 k/uL (1.0-4.8); Myelocytes # (M) 0.18 k/uL (0); Myelocytes % 1 %; Neutrophils % (M) 84 %; Nucleated Red Blood Cells 0 /100 WBC (0-0); Ovalocytes Present; Poikilocytosis (M) Present; Total Cells Counted 200
[2018-02-01 05:15] LABS: Glucose,Whole Blood 141 mg/dL (75-99)
[2018-02-01] MEDS: MILRINONE-D5W PMX 20 MG in DEXTROSE/WATER 1 100ML.BAG IV SCH ×2 (05:21→23:59)
[2018-02-01 06:14] LABS: Glucose,Whole Blood 141 mg/dL (75-99)
[2018-02-01 07:08] LABS: Glucose,Whole Blood 128 mg/dL (75-99)
[2018-02-01] MEDS: IPRATROPIUM-ALBUTEROL 3 ML NEB INHALATION SCH ×4 (08:00→19:32)
[2018-02-01] MEDS: AMIODARONE 200 MG TAB PO SCH ×2 (08:09→20:44)
[2018-02-01] MEDS: PANTOPRAZOLE 40 MG TABLET PO SCH (08:09)
[2018-02-01] MEDS: METOPROLOL TARTRATE 50 MG TAB PO SCH ×2 (08:11→09:45)
[2018-02-01] MEDS: MUPIROCIN 2% OINT 22 GM TUBE NASAL SCH ×2 (08:12→20:46)
[2018-02-01 08:16] LABS: Glucose,Whole Blood 112 mg/dL (75-99)
[2018-02-01] MEDS: ASPIRIN 325 MG TAB PO SCH (08:45)
[2018-02-01] MEDS: CLOPIDOGREL 75 MG TAB PO SCH (08:45)
[2018-02-01] MEDS: ATORVASTATIN 40 MG TAB PO SCH (08:45)
[2018-02-01] MEDS ORDERED: METOPROLOL TARTRATE 25 MG TAB PO SCH (09:08)
[2018-02-01] MEDS: DEXTROSE/WATER 1 500ML.BAG with DOPamine DRIP 800 MG IV SCH (09:25)
[2018-02-01 09:32] LABS: Glucose,Whole Blood 145 mg/dL (75-99)
--- NOTE | 2018-02-01 10:11 | P.PN ---
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 POD #2 mitral valve repair with a #30 mm [employer] annular flex band, clip ligation of the left atrial appendage with a #35 mm Atriclip, coronary artery bypass grafting 2 with a reverse saphenous vein graft off the aorta to the circumflex coronary artery and the right coronary artery, endoscopic vein harvesting of his right greater saphenous vein, complete left-sided maze procedure using the radiofrequency ablation as well as cryoablation, intraoperative transesophageal echocardiogram. Postoperative acute kidney injury, an unexpected but potential outcome of surgery due to hemodynamic instability. The patient remains complaining of some episodes of shortness of breath. Currently he reports that his pain is controlled and rate his pain 4 out of 10 on the pain scale. Patient had episode of hypotension yesterday requiring some norepinephrine support. He is currently off the norepinephrine. He remains on Primacor drip at 0.2 mcg/kg/m and Lasix drip at 20 mg per hour. His also complaining of some intermittent bouts of nausea. No emesis. Objective - Vital Signs Vital signs: Vital Signs Temp 97.4 F L 01/31/18 16:00 Pulse 97 02/01/18 08:02 Resp 21 02/01/18 08:00 BP 81/51 01/31/18 17:00 Pulse Ox 98 02/01/18 08:00 Intake & Output 01/31/18 02/01/18 02/01/18 18:59 06:59 18:59 Intake Total 2403.214 1063.357 289.186 Output Total 662 665 110 Balance 1741.214 398.357 179.186 Weight 110.5 kg 113.2 kg Intake: IV 1265 759 158 .9NS Cardiac Output 60 100 20 0.9NS Pressure Bags 105 99 18 ACETAMINOPHEN IV (For NPO 200 ) 1,000 mg In Empty Bag 1 bag @ 400 mls/hr IVPB Q6HR [facility] Rx#:[id number] Albumin Human 5% 500 ml 500 In Empty Bag 1 bag @ 250 mls/hr IVPB ONCE ONE Rx#: [id number] Furosemide 250 mg In 80 40 Sodium Chloride 0.9% 225 ml @ 20 MG/HR 20 mls/hr IVP .[id number] [facility] Rx#: [id number] Lactated Ringers 1,000 ml 400 480 80 @ 20 mls/hr IV .Q24H [facility] Rx#:[id number] Intake, IV Titration 438.214 154.357 31.186 Amount Amiodarone 450 mg In 259 Dextrose 5% in Water 250 ml @ 1 MG/MIN 34.53 mls/ hr IV .Q7H31M PRN Rx#: [id number] Clevidipine Butyrate 25 24.400 0 8.533 mg In Empty Bag 1 bag @ 1 MG/HR 2 mls/hr IV .Q24H [facility] Rx#:[id number] Insulin Regular 100 unit 122.658 66.399 22.653 In Sodium Chloride 0.9% 100 ml @ Per Protocol IV .Q0M [facility] Rx#:[id number] Milrinone-D5w Pmx 20 mg 87.958 In Dextrose/Water 1 100ml .bag @ 0.2 MCG/KG/MIN 6. 63 mls/hr IV .Q15H5M [facility] Rx#:[id number] Norepinephrin 16 mg-0.9% 32.156 Ns Pmx 16 mg In 250 ml @ Titrate IV .Q0M [facility] Rx#: [id number] Oral 700 150 100 Output: Chest Tube Drainage [address] X 1 [address] X 2 120 70 20 Urine 456 571 80 Other: Voiding Method Indwelling Catheter Indwelling Catheter # Voids 1 ABP, PAP, CO, CI - Last Documented Arterial Blood Pressure 124/59 Pulmonary Artery Pressure 46/25 Cardiac Output 6.6 Cardiac Index 2.9 - Constitutional General appearance: Present: cooperative, no acute distress, obese - Respiratory Details: Lungs sounds essentially clear to his bilateral upper lobes, diminished bilateral bases. Respirations are symmetrical and nonlabored. Oxygen saturation are 98% on 2 L nasal cannula. He is achieving 1000 mL on his incentive spirometry. Mediastinal and left pleural chest tubes in place to low continuous wall suction -20 cm H2O. Draining thin serosanguineous drainage. Mediastinal chest tubes with 40 mL output in the last 8 hours, 160 mL output last 24 hours. Left pleural chest tube with 10 mL output in the last 8 hours, 100 mL output in the last 24 hours. - Cardiovascular Details: Regular rhythm and rate. S1 and S2 present, negative for S3, gallop or murmur. Sternum is stable. Bedside telemetry showing normal sinus rhythm with bundle branch block heart rate 96. Heart hugger's in place and he is demonstrating appropriate use. Atrial and ventricular epicardial pacemaker wires intact and grounded. Knee-high JUSTIN hose and sponge compression devices in place with bilateral lower extremities. No edema present. Right IJ Cordis with Mansfield-Manish catheter in place and functioning. Current cardiac output 6.6, cardiac index 2.9, PA pressures 46/24, CVP 17. Right radial A-line in place and functioning. Primacor drip remains at 0.2 mcg/kg/m. - Gastrointestinal Gastrointestinal Comment(s): Abdomen is soft, nontender and nondistended. Hypoactive bowel sounds all 4 abdominal quadrants. No guarding or rigidity. Tolerating a clear liquid diet. Belching. - Genitourinary Genitourinary Comment(s): Narvaez catheter for accurate I&O. Draining clear tuan urine. 485 mL output in the last 8 hours. Lasix drip at 20 mg per hour. - Integumentary Integumentary Comment(s): Skin is warm and dry. No clubbing or cyanosis present. Midline sternal incision clean and dry and approximated. No redness or drainage present. Right leg EVH site clean and dry and approximated. No redness or drainage present. - Neurologic Neurologic: Present: CNII-XII intact - Musculoskeletal Musculoskeletal: Present: gait normal, strength equal bilaterally - Psychiatric Psychiatric: Present: A&O x's 3, appropriate affect, intact judgment & insight - Allied health notes Allied health notes reviewed: nursing - Labs CBC & Chem 7: 02/01/18 04:15 02/01/18 04:15 Labs: Abnormal Lab Results - Last 24 Hours (Table) 01/31/18 01/31/18 01/31/18 Range/Units 08:48 10:03 11:10 WBC (3.8-10.6) k/uL RBC (4.30-5.90) m/uL Hgb (13.0-17.5) gm/dL Hct (39.0-53.0) % Neutrophils # (Manual) (1.3-7.7) k/uL Lymphocytes # (Manual) (1.0-4.8) k/uL Monocytes # (Manual) (0-1.0) k/uL Myelocytes # (Manual) (0) k/uL ABG pCO2 (35-45) mmHg ABG pO2 (83-108) mmHg ABG HCO3 (21-25) mmol/L Sodium (137-145) mmol/L Carbon Dioxide (22-30) mmol/L BUN (9-20) mg/dL Creatinine (0.66-1.25) mg/dL Glucose (74-99) mg/dL POC Glucose (mg/dL) 143 H 125 H 101 H (75-99) mg/dL Magnesium (1.6-2.3) mg/dL AST (17-59) U/L Total Protein (6.3-8.2) g/dL 01/31/18 01/31/18 01/31/18 Range/Units 12:06 13:03 13:59 WBC (3.8-10.6) k/uL RBC (4.30-5.90) m/uL Hgb (13.0-17.5) gm/dL Hct (39.0-53.0) % Neutrophils # (Manual) (1.3-7.7) k/uL Lymphocytes # (Manual) (1.0-4.8) k/uL Monocytes # (Manual) (0-1.0) k/uL Myelocytes # (Manual) (0) k/uL ABG pCO2 (35-45) mmHg ABG pO2 (83-108) mmHg ABG HCO3 (21-25) mmol/L Sodium (137-145) mmol/L Carbon Dioxide (22-30) mmol/L BUN (9-20) mg/dL Creatinine (0.66-1.25) mg/dL Glucose (74-99) mg/dL POC Glucose (mg/dL) 128 H 164 H 136 H (75-99) mg/dL Magnesium (1.6-2.3) mg/dL AST (17-59) U/L Total Protein (6.3-8.2) g/dL 01/31/18 01/31/18 01/31/18 Range/Units 14:55 16:14 16:28 WBC (3.8-10.6) k/uL RBC (4.30-5.90) m/uL Hgb (13.0-17.5) gm/dL Hct (39.0-53.0) % Neutrophils # (Manual) (1.3-7.7) k/uL Lymphocytes # (Manual) (1.0-4.8) k/uL Monocytes # (Manual) (0-1.0) k/uL Myelocytes # (Manual) (0) k/uL ABG pCO2 31 L (35-45) mmHg ABG pO2 76 L (83-108) mmHg ABG HCO3 18 L (21-25) mmol/L Sodium (137-145) mmol/L Carbon Dioxide (22-30) mmol/L BUN (9-20) mg/dL Creatinine (0.66-1.25) mg/dL Glucose (74-99) mg/dL POC Glucose (mg/dL) 107 H 131 H (75-99) mg/dL Magnesium (1.6-2.3) mg/dL AST (17-59) U/L Total Protein (6.3-8.2) g/dL 01/31/18 01/31/18 01/31/18 Range/Units 17:05 18:10 19:03 WBC (3.8-10.6) k/uL RBC (4.30-5.90) m/uL Hgb (13.0-17.5) gm/dL Hct (39.0-53.0) % Neutrophils # (Manual) (1.3-7.7) k/uL Lymphocytes # (Manual) (1.0-4.8) k/uL Monocytes # (Manual) (0-1.0) k/uL Myelocytes # (Manual) (0) k/uL ABG pCO2 (35-45) mmHg ABG pO2 (83-108) mmHg ABG HCO3 (21-25) mmol/L Sodium (137-145) mmol/L Carbon Dioxide (22-30) mmol/L BUN (9-20) mg/dL Creatinine (0.66-1.25) mg/dL Glucose (74-99) mg/dL POC Glucose (mg/dL) 146 H 133 H 107 H (75-99) mg/dL Magnesium (1.6-2.3) mg/dL AST (17-59) U/L Total Protein (6.3-8.2) g/dL 01/31/18 01/31/18 01/31/18 Range/Units 20:03 21:12 22:14 WBC (3.8-10.6) k/uL RBC (4.30-5.90) m/uL Hgb (13.0-17.5) gm/dL Hct (39.0-53.0) % Neutrophils # (Manual) (1.3-7.7) k/uL Lymphocytes # (Manual) (1.0-4.8) k/uL Monocytes # (Manual) (0-1.0) k/uL Myelocytes # (Manual) (0) k/uL ABG pCO2 (35-45) mmHg ABG pO2 (83-108) mmHg ABG HCO3 (21-25) mmol/L Sodium (137-145) mmol/L Carbon Dioxide (22-30) mmol/L BUN (9-20) mg/dL Creatinine (0.66-1.25) mg/dL Glucose (74-99) mg/dL POC Glucose (mg/dL) 117 H 151 H 145 H (75-99) mg/dL Magnesium (1.6-2.3) mg/dL AST (17-59) U/L Total Protein (6.3-8.2) g/dL 01/31/18 02/01/18 02/01/18 Range/Units 23:06 00:02 01:07 WBC (3.8-10.6) k/uL RBC (4.30-5.90) m/uL Hgb (13.0-17.5) gm/dL Hct (39.0-53.0) % Neutrophils # (Manual) (1.3-7.7) k/uL Lymphocytes # (Manual) (1.0-4.8) k/uL Monocytes # (Manual) (0-1.0) k/uL Myelocytes # (Manual) (0) k/uL ABG pCO2 (35-45) mmHg ABG pO2 (83-108) mmHg ABG HCO3 (21-25) mmol/L Sodium (137-145) mmol/L Carbon Dioxide (22-30) mmol/L BUN (9-20) mg/dL Creatinine (0.66-1.25) mg/dL Glucose (74-99) mg/dL POC Glucose (mg/dL) 127 H 111 H 121 H (75-99) mg/dL Magnesium (1.6-2.3) mg/dL AST (17-59) U/L Total Protein (6.3-8.2) g/dL 02/01/18 02/01/18 02/01/18 Range/Units 02:04 02:41 03:17 WBC (3.8-10.6) k/uL RBC (4.30-5.90) m/uL Hgb (13.0-17.5) gm/dL Hct (39.0-53.0) % Neutrophils # (Manual) (1.3-7.7) k/uL Lymphocytes # (Manual) (1.0-4.8) k/uL Monocytes # (Manual) (0-1.0) k/uL Myelocytes # (Manual) (0) k/uL ABG pCO2 33 L (35-45) mmHg ABG pO2 72 L (83-108) mmHg ABG HCO3 (21-25) mmol/L Sodium (137-145) mmol/L Carbon Dioxide (22-30) mmol/L BUN (9-20) mg/dL Creatinine (0.66-1.25) mg/dL Glucose (74-99) mg/dL POC Glucose (mg/dL) 123 H 105 H (75-99) mg/dL Magnesium (1.6-2.3) mg/dL AST (17-59) U/L Total Protein (6.3-8.2) g/dL 02/01/18 02/01/18 02/01/18 Range/Units 04:15 04:15 04:17 WBC 18.2 H (3.8-10.6) k/uL RBC 3.44 L (4.30-5.90) m/uL Hgb 9.7 L (13.0-17.5) gm/dL Hct 30.2 L (39.0-53.0) % Neutrophils # (Manual) 15.40 H (1.3-7.7) k/uL Lymphocytes # (Manual) 0.55 L (1.0-4.8) k/uL Monocytes # (Manual) 2.00 H (0-1.0) k/uL Myelocytes # (Manual) 0.18 H (0) k/uL ABG pCO2 (35-45) mmHg ABG pO2 (83-108) mmHg ABG HCO3 (21-25) mmol/L Sodium 136 L (137-145) mmol/L Carbon Dioxide 20 L (22-30) mmol/L BUN 31 H (9-20) mg/dL Creatinine 2.00 H (0.66-1.25) mg/dL Glucose 108 H (74-99) mg/dL POC Glucose (mg/dL) 111 H (75-99) mg/dL Magnesium 2.4 H (1.6-2.3) mg/dL AST 82 H (17-59) U/L Total Protein 5.9 L (6.3-8.2) g/dL 02/01/18 02/01/18 02/01/18 Range/Units 05:13 06:12 07:07 WBC (3.8-10.6) k/uL RBC (4.30-5.90) m/uL Hgb (13.0-17.5) gm/dL Hct (39.0-53.0) % Neutrophils # (Manual) (1.3-7.7) k/uL Lymphocytes # (Manual) (1.0-4.8) k/uL Monocytes # (Manual) (0-1.0) k/uL Myelocytes # (Manual) (0) k/uL ABG pCO2 (35-45) mmHg ABG pO2 (83-108) mmHg ABG HCO3 (21-25) mmol/L Sodium (137-145) mmol/L Carbon Dioxide (22-30) mmol/L BUN (9-20) mg/dL Creatinine (0.66-1.25) mg/dL Glucose (74-99) mg/dL POC Glucose (mg/dL) 141 H 141 H 128 H (75-99) mg/dL Magnesium (1.6-2.3) mg/dL AST (17-59) U/L Total Protein (6.3-8.2) g/dL 02/01/18 Range/Units 08:15 WBC (3.8-10.6) k/uL RBC (4.30-5.90) m/uL Hgb (13.0-17.5) gm/dL Hct (39.0-53.0) % Neutrophils # (Manual) (1.3-7.7) k/uL Lymphocytes # (Manual) (1.0-4.8) k/uL Monocytes # (Manual) (0-1.0) k/uL Myelocytes # (Manual) (0) k/uL ABG pCO2 (35-45) mmHg ABG pO2 (83-108) mmHg ABG HCO3 (21-25) mmol/L Sodium (137-145) mmol/L Carbon Dioxide (22-30) mmol/L BUN (9-20) mg/dL Creatinine (0.66-1.25) mg/dL Glucose (74-99) mg/dL POC Glucose (mg/dL) 112 H (75-99) mg/dL Magnesium (1.6-2.3) mg/dL AST (17-59) U/L Total Protein (6.3-8.2) g/dL - Imaging and Cardiology Chest x-ray: report reviewed, image reviewed Assessment and Plan (1) Hypertension Current Visit: Yes Status: Acute Code(s): I10 - ESSENTIAL (PRIMARY) HYPERTENSION SNOMED Code(s): 02627651 (2) Hyperlipidemia Current Visit: Yes Status: Acute Code(s): E78.5 - HYPERLIPIDEMIA, UNSPECIFIED SNOMED Code(s): 22136621 (3) Presence of stent in coronary artery in patient with coronary artery disease Current Visit: Yes Status: Acute Code(s): I25.10 - ATHSCL HEART DISEASE OF [place] CORONARY ARTERY W/O ANG PCTRS; Z95.5 - PRESENCE OF CORONARY ANGIOPLASTY IMPLANT AND GRAFT SNOMED Code(s): 747784662 (4) Severe mitral regurgitation by prior echocardiogram Current Visit: Yes Status: Acute Code(s): I34.0 - NONRHEUMATIC MITRAL (VALVE ) INSUFFICIENCY SNOMED Code(s): 67632696 (5) Diabetes mellitus type 2 in obese Current Visit: Yes Status: Acute Code(s): E11.69 - TYPE 2 DIABETES MELLITUS WITH OTHER SPECIFIED COMPLICATION; E66.9 - OBESITY, UNSPECIFIED SNOMED Code(s) : 59570867 (6) Enlarged prostate Current Visit: Yes Status: Acute Code(s): N40.0 - BENIGN PROSTATIC HYPERPLASIA WITHOUT LOWER URINRY TRACT SYMP SNOMED Code(s): 103428617 (7) Personal history of nicotine dependence Current Visit: Yes Status: Acute Code(s): Z87.891 - PERSONAL HISTORY OF NICOTINE DEPENDENCE SNOMED Code(s): 45780323 (8) Asthma Current Visit: Yes Status: Acute Code(s): J45.909 - UNSPECIFIED ASTHMA, UNCOMPLICATED SNOMED Code(s): 724536209 (9) COPD (chronic obstructive pulmonary disease) Current Visit: Yes Status: Acute Code(s): J44.9 - CHRONIC OBSTRUCTIVE PULMONARY DISEASE, UNSPECIFIED SNOMED Code(s): 18530947 Plan: 1. Continue aspirin, statin, Plavix, subcu heparin and beta lencho. We will increase his beta lencho as tolerated. 2. We will discontinue his Mansfield-Manish catheter, keep his right IJ Cordis and placed to continuous CVP monitoring. 3. Encourage use of his incentive spirometry every hour while awake. 4. DVT and GI prophylaxis. 5. Pulmonary management per Dr. Marte's recommendations.. 6. Continue Lasix drip at 20 mg per hour. 7. Primacor to continue at 0.1 mcg/kg/m 8. Start renal dose dopamine at 2.5 mcg/kg/m. 9. Continue amiodarone 400 mg by mouth twice a day for atrial fibrillation prophylaxis. 10. Increase activity as tolerated, PT/OT/cardiac rehab following. 11. Blood sugar management per primary care service. 12. We will obtain a limited 2-D echocardiogram to evaluate LV function. 13. Keep mediastinal and left pleural chest tubes in place for now. 14. Further recommendations to follow based on the patient's clinical course. Time with Patient: Greater than 30
[2018-02-01 10:32] LABS: Glucose,Whole Blood 138 mg/dL (75-99)
[2018-02-01 11:27] LABS: Glucose,Whole Blood 117 mg/dL (75-99)
--- NOTE | 2018-02-01 11:39 | P.PN ---
Subjective Progress Note Date: 02/01/18 Principal diagnosis: Status post CABG and also mitral valve replacement This patient is having some issues with hypotension. This morning the patient' s blood pressure was well-controlled and he was off all IV pressors. Patient was made to sit in the chair. His blood pressure dropped into the 70-80 systolic. Patient is back on dopamine and Levophed. His CVP is about 15 and is a pulmonary wedge pressure is also around 15. His urine output is on the low side. His creatinine has gone up. Patient is going to have an echocardiogram repeated. Meanwhile we'll continue the current supportive measures. His drains are still draining fluid Objective - Vital Signs Vital signs: Vital Signs Temp 97.4 F L 01/31/18 16:00 Pulse 107 H 02/01/18 11:21 Resp 19 02/01/18 11:00 BP 107/50 02/01/18 10:00 Pulse Ox 97 02/01/18 11:00 Intake & Output 01/31/18 02/01/18 02/01/18 18:59 06:59 18:59 Intake Total 2403.214 1063.357 576.721 Output Total 662 665 345 Balance 1741.214 398.357 231.721 Weight 110.5 kg 113.2 kg Intake: IV 1265 759 424 .9NS Cardiac Output 60 100 20 0.9NS Pressure Bags 105 99 54 ACETAMINOPHEN IV (For NPO 200 ) 1,000 mg In Empty Bag 1 bag @ 400 mls/hr IVPB Q6HR SHAUNA Rx#:[id number] Albumin Human 5% 500 ml 500 In Empty Bag 1 bag @ 250 mls/hr IVPB ONCE ONE Rx#: [id number] Furosemide 250 mg In 80 120 Sodium Chloride 0.9% 225 ml @ 20 MG/HR 20 mls/hr IVP .[id number] SHAUNA Rx#: [id number] Lactated Ringers 1,000 ml 400 480 230 @ 20 mls/hr IV .Q24H SHAUNA Rx#:[id number] Intake, IV Titration 438.214 154.357 52.721 Amount Amiodarone 450 mg In 259 Dextrose 5% in Water 250 ml @ 1 MG/MIN 34.53 mls/ hr IV .Q7H31M PRN Rx#: [id number] Clevidipine Butyrate 25 24.400 0 8.533 mg In Empty Bag 1 bag @ 1 MG/HR 2 mls/hr IV .Q24H SHAUNA Rx#:[id number] Insulin Regular 100 unit 122.658 66.399 44.188 In Sodium Chloride 0.9% 100 ml @ Per Protocol IV .Q0M SHAUNA Rx#:[id number] Milrinone-D5w Pmx 20 mg 87.958 In Dextrose/Water 1 100ml .bag @ 0.2 MCG/KG/MIN 6. 63 mls/hr IV .Q15H5M SHAUNA Rx#:[id number] Norepinephrin 16 mg-0.9% 32.156 Ns Pmx 16 mg In 250 ml @ Titrate IV .Q0M SHAUNA Rx#: [id number] Oral 700 150 100 Output: Chest Tube Drainage [address] X 1 [address] X 2 120 70 60 Urine 456 571 215 Other: Voiding Method Indwelling Catheter Indwelling Catheter Indwelling Catheter # Voids 1 ABP, PAP, CO, CI - Last Documented Arterial Blood Pressure 114/41 Pulmonary Artery Pressure 35/18 Cardiac Output 4.8 Cardiac Index 2.9 - Exam GENERAL EXAM: Patient is alert and oriented and in mild distress HEENT: Normocephalic. Normal reaction of pupils, equal size, normal range of extraocular motion. No erythema or exudates in the throat. NECK: No masses, no nuchal rigidity. CHEST: Postsurgical. LUNGS: Diminished breath sounds at bases HEART: Distant heart sounds ABDOMEN: Deferred SKIN: No rashes CENTRAL NERVOUS SYSTEM: No focal deficits. EXTREMITIES: No cyanosis, clubbing or edema. - Labs CBC & Chem 7: 02/01/18 04:15 02/01/18 04:15 Labs: Abnormal Lab Results - Last 24 Hours (Table) 01/31/18 01/31/18 01/31/18 Range/Units 12:06 13:03 13:59 WBC (3.8-10.6) k/uL RBC (4.30-5.90) m/uL Hgb (13.0-17.5) gm/dL Hct (39.0-53.0) % Neutrophils # (Manual) (1.3-7.7) k/uL Lymphocytes # (Manual) (1.0-4.8) k/uL Monocytes # (Manual) (0-1.0) k/uL Myelocytes # (Manual) (0) k/uL ABG pCO2 (35-45) mmHg ABG pO2 (83-108) mmHg ABG HCO3 (21-25) mmol/L Sodium (137-145) mmol/L Carbon Dioxide (22-30) mmol/L BUN (9-20) mg/dL Creatinine (0.66-1.25) mg/dL Glucose (74-99) mg/dL POC Glucose (mg/dL) 128 H 164 H 136 H (75-99) mg/dL Magnesium (1.6-2.3) mg/dL AST (17-59) U/L Total Protein (6.3-8.2) g/dL 01/31/18 01/31/18 01/31/18 Range/Units 14:55 16:14 16:28 WBC (3.8-10.6) k/uL RBC (4.30-5.90) m/uL Hgb (13.0-17.5) gm/dL Hct (39.0-53.0) % Neutrophils # (Manual) (1.3-7.7) k/uL Lymphocytes # (Manual) (1.0-4.8) k/uL Monocytes # (Manual) (0-1.0) k/uL Myelocytes # (Manual) (0) k/uL ABG pCO2 31 L (35-45) mmHg ABG pO2 76 L (83-108) mmHg ABG HCO3 18 L (21-25) mmol/L Sodium (137-145) mmol/L Carbon Dioxide (22-30) mmol/L BUN (9-20) mg/dL Creatinine (0.66-1.25) mg/dL Glucose (74-99) mg/dL POC Glucose (mg/dL) 107 H 131 H (75-99) mg/dL Magnesium (1.6-2.3) mg/dL AST (17-59) U/L Total Protein (6.3-8.2) g/dL 01/31/18 01/31/18 01/31/18 Range/Units 17:05 18:10 19:03 WBC (3.8-10.6) k/uL RBC (4.30-5.90) m/uL Hgb (13.0-17.5) gm/dL Hct (39.0-53.0) % Neutrophils # (Manual) (1.3-7.7) k/uL Lymphocytes # (Manual) (1.0-4.8) k/uL Monocytes # (Manual) (0-1.0) k/uL Myelocytes # (Manual) (0) k/uL ABG pCO2 (35-45) mmHg ABG pO2 (83-108) mmHg ABG HCO3 (21-25) mmol/L Sodium (137-145) mmol/L Carbon Dioxide (22-30) mmol/L BUN (9-20) mg/dL Creatinine (0.66-1.25) mg/dL Glucose (74-99) mg/dL POC Glucose (mg/dL) 146 H 133 H 107 H (75-99) mg/dL Magnesium (1.6-2.3) mg/dL AST (17-59) U/L Total Protein (6.3-8.2) g/dL 01/31/18 01/31/18 01/31/18 Range/Units 20:03 21:12 22:14 WBC (3.8-10.6) k/uL RBC (4.30-5.90) m/uL Hgb (13.0-17.5) gm/dL Hct (39.0-53.0) % Neutrophils # (Manual) (1.3-7.7) k/uL Lymphocytes # (Manual) (1.0-4.8) k/uL Monocytes # (Manual) (0-1.0) k/uL Myelocytes # (Manual) (0) k/uL ABG pCO2 (35-45) mmHg ABG pO2 (83-108) mmHg ABG HCO3 (21-25) mmol/L Sodium (137-145) mmol/L Carbon Dioxide (22-30) mmol/L BUN (9-20) mg/dL Creatinine (0.66-1.25) mg/dL Glucose (74-99) mg/dL POC Glucose (mg/dL) 117 H 151 H 145 H (75-99) mg/dL Magnesium (1.6-2.3) mg/dL AST (17-59) U/L Total Protein (6.3-8.2) g/dL 01/31/18 02/01/18 02/01/18 Range/Units 23:06 00:02 01:07 WBC (3.8-10.6) k/uL RBC (4.30-5.90) m/uL Hgb (13.0-17.5) gm/dL Hct (39.0-53.0) % Neutrophils # (Manual) (1.3-7.7) k/uL Lymphocytes # (Manual) (1.0-4.8) k/uL Monocytes # (Manual) (0-1.0) k/uL Myelocytes # (Manual) (0) k/uL ABG pCO2 (35-45) mmHg ABG pO2 (83-108) mmHg ABG HCO3 (21-25) mmol/L Sodium (137-145) mmol/L Carbon Dioxide (22-30) mmol/L BUN (9-20) mg/dL Creatinine (0.66-1.25) mg/dL Glucose (74-99) mg/dL POC Glucose (mg/dL) 127 H 111 H 121 H (75-99) mg/dL Magnesium (1.6-2.3) mg/dL AST (17-59) U/L Total Protein (6.3-8.2) g/dL 02/01/18 02/01/18 02/01/18 Range/Units 02:04 02:41 03:17 WBC (3.8-10.6) k/uL RBC (4.30-5.90) m/uL Hgb (13.0-17.5) gm/dL Hct (39.0-53.0) % Neutrophils # (Manual) (1.3-7.7) k/uL Lymphocytes # (Manual) (1.0-4.8) k/uL Monocytes # (Manual) (0-1.0) k/uL Myelocytes # (Manual) (0) k/uL ABG pCO2 33 L (35-45) mmHg ABG pO2 72 L (83-108) mmHg ABG HCO3 (21-25) mmol/L Sodium (137-145) mmol/L Carbon Dioxide (22-30) mmol/L BUN (9-20) mg/dL Creatinine (0.66-1.25) mg/dL Glucose (74-99) mg/dL POC Glucose (mg/dL) 123 H 105 H (75-99) mg/dL Magnesium (1.6-2.3) mg/dL AST (17-59) U/L Total Protein (6.3-8.2) g/dL 02/01/18 02/01/18 02/01/18 Range/Units 04:15 04:15 04:17 WBC 18.2 H (3.8-10.6) k/uL RBC 3.44 L (4.30-5.90) m/uL Hgb 9.7 L (13.0-17.5) gm/dL Hct 30.2 L (39.0-53.0) % Neutrophils # (Manual) 15.40 H (1.3-7.7) k/uL Lymphocytes # (Manual) 0.55 L (1.0-4.8) k/uL Monocytes # (Manual) 2.00 H (0-1.0) k/uL Myelocytes # (Manual) 0.18 H (0) k/uL ABG pCO2 (35-45) mmHg ABG pO2 (83-108) mmHg ABG HCO3 (21-25) mmol/L Sodium 136 L (137-145) mmol/L Carbon Dioxide 20 L (22-30) mmol/L BUN 31 H (9-20) mg/dL Creatinine 2.00 H (0.66-1.25) mg/dL Glucose 108 H (74-99) mg/dL POC Glucose (mg/dL) 111 H (75-99) mg/dL Magnesium 2.4 H (1.6-2.3) mg/dL AST 82 H (17-59) U/L Total Protein 5.9 L (6.3-8.2) g/dL 02/01/18 02/01/18 02/01/18 Range/Units 05:13 06:12 07:07 WBC (3.8-10.6) k/uL RBC (4.30-5.90) m/uL Hgb (13.0-17.5) gm/dL Hct (39.0-53.0) % Neutrophils # (Manual) (1.3-7.7) k/uL Lymphocytes # (Manual) (1.0-4.8) k/uL Monocytes # (Manual) (0-1.0) k/uL Myelocytes # (Manual) (0) k/uL ABG pCO2 (35-45) mmHg ABG pO2 (83-108) mmHg ABG HCO3 (21-25) mmol/L Sodium (137-145) mmol/L Carbon Dioxide (22-30) mmol/L BUN (9-20) mg/dL Creatinine (0.66-1.25) mg/dL Glucose (74-99) mg/dL POC Glucose (mg/dL) 141 H 141 H 128 H (75-99) mg/dL Magnesium (1.6-2.3) mg/dL AST (17-59) U/L Total Protein (6.3-8.2) g/dL 02/01/18 02/01/18 02/01/18 Range/Units 08:15 09:31 10:30 WBC (3.8-10.6) k/uL RBC (4.30-5.90) m/uL Hgb (13.0-17.5) gm/dL Hct (39.0-53.0) % Neutrophils # (Manual) (1.3-7.7) k/uL Lymphocytes # (Manual) (1.0-4.8) k/uL Monocytes # (Manual) (0-1.0) k/uL Myelocytes # (Manual) (0) k/uL ABG pCO2 (35-45) mmHg ABG pO2 (83-108) mmHg ABG HCO3 (21-25) mmol/L Sodium (137-145) mmol/L Carbon Dioxide (22-30) mmol/L BUN (9-20) mg/dL Creatinine (0.66-1.25) mg/dL Glucose (74-99) mg/dL POC Glucose (mg/dL) 112 H 145 H 138 H (75-99) mg/dL Magnesium (1.6-2.3) mg/dL AST (17-59) U/L Total Protein (6.3-8.2) g/dL 02/01/18 Range/Units 11:24 WBC (3.8-10.6) k/uL RBC (4.30-5.90) m/uL Hgb (13.0-17.5) gm/dL Hct (39.0-53.0) % Neutrophils # (Manual) (1.3-7.7) k/uL Lymphocytes # (Manual) (1.0-4.8) k/uL Monocytes # (Manual) (0-1.0) k/uL Myelocytes # (Manual) (0) k/uL ABG pCO2 (35-45) mmHg ABG pO2 (83-108) mmHg ABG HCO3 (21-25) mmol/L Sodium (137-145) mmol/L Carbon Dioxide (22-30) mmol/L BUN (9-20) mg/dL Creatinine (0.66-1.25) mg/dL Glucose (74-99) mg/dL POC Glucose (mg/dL) 117 H (75-99) mg/dL Magnesium (1.6-2.3) mg/dL AST (17-59) U/L Total Protein (6.3-8.2) g/dL Assessment and Plan (1) H/O coronary artery bypass surgery Current Visit: Yes Status: Acute Code(s): Z95.1 - PRESENCE OF AORTOCORONARY BYPASS GRAFT SNOMED Code(s): 567010715 (2) History of mitral valve repair Current Visit: Yes Status: Acute Code(s): Z98.890 - OTHER SPECIFIED POSTPROCEDURAL STATES SNOMED Code(s): 725864242 (3) COPD (chronic obstructive pulmonary disease) Current Visit: Yes Status: Acute Code(s): J44.9 - CHRONIC OBSTRUCTIVE PULMONARY DISEASE, UNSPECIFIED SNOMED Code(s): 47542126 (4) Diabetes mellitus type 2 in obese Current Visit: Yes Status: Acute Code(s): E11.69 - TYPE 2 DIABETES MELLITUS WITH OTHER SPECIFIED COMPLICATION; E66.9 - OBESITY, UNSPECIFIED SNOMED Code(s) : 57817498 (5) Hyperlipidemia Current Visit: Yes Status: Acute Code(s): E78.5 - HYPERLIPIDEMIA, UNSPECIFIED SNOMED Code(s): 00927048 Plan: Patient is having issues with her blood pressure being low. His creatinine is also slightly going up. Currently patient is on pressors. Echocardiogram is being done. Further recommendations depend upon the clinical course
[2018-02-01 12:10] LABS: Glucose,Whole Blood 103 mg/dL (75-99)
[2018-02-01] MEDS: HYDROcodone/APAP 5-325MG 1 EACH TAB PO PRN ×2 (12:11→17:41)
[2018-02-01 13:10] LABS: Glucose,Whole Blood 106 mg/dL (75-99)
[2018-02-01] MEDS: guaiFENesin 600 MG TABLET.ER PO SCH ×2 (14:41→20:45)
[2018-02-01] MEDS: INSULIN REGULAR 100 UNIT in SODIUM CHLORIDE 0.9% 100 ML IV SCH (14:42)
[2018-02-01 14:43] LABS: Glucose,Whole Blood 135 mg/dL (75-99)
[2018-02-01 15:24] LABS: Glucose,Whole Blood 145 mg/dL (75-99)
--- NOTE | 2018-02-01 15:37 | P.PN ---
Subjective This is a 69 HO pleasant gentleman patient of Dr. Cardoso with underlying history of CAD with prior PCI stent placement, hypertension hypertensive cardiovascular disease hyperlipidemia and diabetes mellitus type 2 asthma OR arthritis COPD admitted to [facility] and was found on imaging studies secondary to his chest pain new onset atrial fibrillation with RVR and shortness of breath, cardiac cath performed 01/26/2018 showing 80% stenosis of RCA, 70% stenoses of the left circumflex involving the AV groove circumflex ostial portion, severe mitral regurgitation, dilated left ventricle ejection fraction 50-55%. He was transferred to [facility] for mitral valve placement and CABG 2 vessel critical stenosis involving left circumflex and right coronary artery. CABG most likely would be anticipated to be done January 30 He was seen at [facility] by , for pulmonary clearance, pertinent laboratories creatinine 1.01 hemoglobin 12.4 TSH 0.93 hemoglobin A1c not done,. Patient currently is on basal bolus Levemir and premeal coverage, instead of home oral medication, continue on Januvia 100 mg at bedtime, cardiology to see, Dr. Marte for consult and consult to Dr. Spicer cardiothoracic, Dr. Salas cardiology. He should maintain IV heparin 01/29: Patient is followed by Dr. Marte and Dr. VC Fry. Patient is scheduled for coronary artery bypass surgery and mitral valve replacement or repair on Friday. Blood sugars are running 156-193. Additional 2units of Novolog added premeal until surgery. Patient states his blood sugars are usually 100-130 at home. 01/30: Patient is going for surgery. 01/31 Patient is postoperative day 1 with mitral valve repair, coronary artery bypass grafting X2. Patient examined bed side. Appears tired. Complains of shortness of breath intermittently. Currently on 2 L of oxygen. Blood pressure continues to drop to systolic in low 80. Initiated on norepinephrine added low -dose. Chest x-ray suggested worsening vascular congestion and pleural effusion. Received 1 dose 80 mg IV Lasix today Woodruff-Manish catheter removed today. Patient is extubated since this morning. 02/01 Patient has increased cough and congestion, on 6 L nasal cannula. CXR concerning for cngestion and pleural effusion. on lasix drip. Lantus increased to 15 units bedtime to decrease insulin requirement. Continue trodjenta 5 mg po daily while in hospital. COntinue insulin drip, plan to switich to sliding scale if not much requirement on drip. Continue metoprolol 25 mg op BID Objective - Vital Signs Vital signs: Vital Signs Temp 98.3 F 02/01/18 12:00 Pulse 99 02/01/18 15:00 Resp 21 02/01/18 15:00 BP 112/61 02/01/18 15:00 Pulse Ox 95 02/01/18 15:00 Intake & Output 01/31/18 02/01/18 02/01/18 18:59 06:59 18:59 Intake Total 2403.214 1221.483 6347.313 Output Total 662 665 685 Balance 1741.214 398.357 546.313 Weight 110.5 kg 113.2 kg Intake: IV 1265 759 582 .9NS Cardiac Output 60 100 20 0.9NS Pressure Bags 105 99 72 ACETAMINOPHEN IV (For NPO 200 ) 1,000 mg In Empty Bag 1 bag @ 400 mls/hr IVPB Q6HR SHAUNA Rx#:[id number] Albumin Human 5% 500 ml 500 In Empty Bag 1 bag @ 250 mls/hr IVPB ONCE ONE Rx#: [id number] Furosemide 250 mg In 80 140 Sodium Chloride 0.9% 225 ml @ 20 MG/HR 20 mls/hr IVP .[id number] SHAUNA Rx#: [id number] Lactated Ringers 1,000 ml 400 480 350 @ 20 mls/hr IV .Q24H SHAUNA Rx#:[id number] Intake, IV Titration 438.214 154.357 299.313 Amount Amiodarone 450 mg In 259 Dextrose 5% in Water 250 ml @ 1 MG/MIN 34.53 mls/ hr IV .Q7H31M PRN Rx#: [id number] Clevidipine Butyrate 25 24.400 0 8.533 mg In Empty Bag 1 bag @ 1 MG/HR 2 mls/hr IV .Q24H SHAUNA Rx#:[id number] Furosemide 250 mg In 234.667 Sodium Chloride 0.9% 225 ml @ 20 MG/HR 20 mls/hr IVP .[id number] SHAUNA Rx#: [id number] Insulin Regular 100 unit 122.658 66.399 56.113 In Sodium Chloride 0.9% 100 ml @ Per Protocol IV .Q0M SHAUNA Rx#:[id number] Milrinone-D5w Pmx 20 mg 87.958 In Dextrose/Water 1 100ml .bag @ 0.2 MCG/KG/MIN 6. 63 mls/hr IV .Q15H5M SHAUNA Rx#:[id number] Norepinephrin 16 mg-0.9% 32.156 Ns Pmx 16 mg In 250 ml @ Titrate IV .Q0M SHAUNA Rx#: [id number] Oral 700 150 350 Output: Chest Tube Drainage [address] X 1 [address] X 2 120 70 90 Urine 456 571 505 Other: Voiding Method Indwelling Catheter Indwelling Catheter Indwelling Catheter # Voids 1 ABP, PAP, CO, CI - Last Documented Arterial Blood Pressure 112/55 Pulmonary Artery Pressure 35/18 Cardiac Output 4.8 Cardiac Index 2.9 - Exam General appearance: cooperative, no acute distress,appear sleepy - EENT Eyes: anicteric sclerae, EOMI, PERRLA, dentition normal, normal appearance ENT: NA/AT, normal oropharynx - Neck Neck: no lymphadenopathy, normal ROM, no other, no rigidity, no stridor, no thyromegaly - Respiratory Respiratory: bilateral: diminished rales, rhonchi at bases,Mediastinal and left pleural chest tubes in place to low continuous wall suction. - Cardiovascular Rhythm: regular Heart sounds: normal: S1, S2 Abnormal Heart Sounds: no systolic murmur, no diastolic murmur, no rub, no S3 Gallop, no S4 Gallop, no click, no other - Gastrointestinal General gastrointestinal: normal bowel sounds, soft - Integumentary Integumentary: normal, normal turgor - Neurologic Neurologic: CNII-XII intact - Musculoskeletal Musculoskeletal: strength equal bilaterally - Psychiatric Psychiatric: A&O x's 3, appropriate affect, intact judgment & insight - Labs CBC & Chem 7: 02/01/18 04:15 02/01/18 04:15 Labs: Abnormal Lab Results - Last 24 Hours (Table) 01/31/18 01/31/18 01/31/18 Range/Units 16:14 16:28 17:05 WBC (3.8-10.6) k/uL RBC (4.30-5.90) m/uL Hgb (13.0-17.5) gm/dL Hct (39.0-53.0) % Neutrophils # (Manual) (1.3-7.7) k/uL Lymphocytes # (Manual) (1.0-4.8) k/uL Monocytes # (Manual) (0-1.0) k/uL Myelocytes # (Manual) (0) k/uL ABG pCO2 31 L (35-45) mmHg ABG pO2 76 L (83-108) mmHg ABG HCO3 18 L (21-25) mmol/L Sodium (137-145) mmol/L Carbon Dioxide (22-30) mmol/L BUN (9-20) mg/dL Creatinine (0.66-1.25) mg/dL Glucose (74-99) mg/dL POC Glucose (mg/dL) 131 H 146 H (75-99) mg/dL Magnesium (1.6-2.3) mg/dL AST (17-59) U/L Total Protein (6.3-8.2) g/dL 01/31/18 01/31/18 01/31/18 Range/Units 18:10 19:03 20:03 WBC (3.8-10.6) k/uL RBC (4.30-5.90) m/uL Hgb (13.0-17.5) gm/dL Hct (39.0-53.0) % Neutrophils # (Manual) (1.3-7.7) k/uL Lymphocytes # (Manual) (1.0-4.8) k/uL Monocytes # (Manual) (0-1.0) k/uL Myelocytes # (Manual) (0) k/uL ABG pCO2 (35-45) mmHg ABG pO2 (83-108) mmHg ABG HCO3 (21-25) mmol/L Sodium (137-145) mmol/L Carbon Dioxide (22-30) mmol/L BUN (9-20) mg/dL Creatinine (0.66-1.25) mg/dL Glucose (74-99) mg/dL POC Glucose (mg/dL) 133 H 107 H 117 H (75-99) mg/dL Magnesium (1.6-2.3) mg/dL AST (17-59) U/L Total Protein (6.3-8.2) g/dL 01/31/18 01/31/18 01/31/18 Range/Units 21:12 22:14 23:06 WBC (3.8-10.6) k/uL RBC (4.30-5.90) m/uL Hgb (13.0-17.5) gm/dL Hct (39.0-53.0) % Neutrophils # (Manual) (1.3-7.7) k/uL Lymphocytes # (Manual) (1.0-4.8) k/uL Monocytes # (Manual) (0-1.0) k/uL Myelocytes # (Manual) (0) k/uL ABG pCO2 (35-45) mmHg ABG pO2 (83-108) mmHg ABG HCO3 (21-25) mmol/L Sodium (137-145) mmol/L Carbon Dioxide (22-30) mmol/L BUN (9-20) mg/dL Creatinine (0.66-1.25) mg/dL Glucose (74-99) mg/dL POC Glucose (mg/dL) 151 H 145 H 127 H (75-99) mg/dL Magnesium (1.6-2.3) mg/dL AST (17-59) U/L Total Protein (6.3-8.2) g/dL 02/01/18 02/01/18 02/01/18 Range/Units 00:02 01:07 02:04 WBC (3.8-10.6) k/uL RBC (4.30-5.90) m/uL Hgb (13.0-17.5) gm/dL Hct (39.0-53.0) % Neutrophils # (Manual) (1.3-7.7) k/uL Lymphocytes # (Manual) (1.0-4.8) k/uL Monocytes # (Manual) (0-1.0) k/uL Myelocytes # (Manual) (0) k/uL ABG pCO2 (35-45) mmHg ABG pO2 (83-108) mmHg ABG HCO3 (21-25) mmol/L Sodium (137-145) mmol/L Carbon Dioxide (22-30) mmol/L BUN (9-20) mg/dL Creatinine (0.66-1.25) mg/dL Glucose (74-99) mg/dL POC Glucose (mg/dL) 111 H 121 H 123 H (75-99) mg/dL Magnesium (1.6-2.3) mg/dL AST (17-59) U/L Total Protein (6.3-8.2) g/dL 02/01/18 02/01/18 02/01/18 Range/Units 02:41 03:17 04:15 WBC (3.8-10.6) k/uL RBC (4.30-5.90) m/uL Hgb (13.0-17.5) gm/dL Hct (39.0-53.0) % Neutrophils # (Manual) (1.3-7.7) k/uL Lymphocytes # (Manual) (1.0-4.8) k/uL Monocytes # (Manual) (0-1.0) k/uL Myelocytes # (Manual) (0) k/uL ABG pCO2 33 L (35-45) mmHg ABG pO2 72 L (83-108) mmHg ABG HCO3 (21-25) mmol/L Sodium 136 L (137-145) mmol/L Carbon Dioxide 20 L (22-30) mmol/L BUN 31 H (9-20) mg/dL Creatinine 2.00 H (0.66-1.25) mg/dL Glucose 108 H (74-99) mg/dL POC Glucose (mg/dL) 105 H (75-99) mg/dL Magnesium 2.4 H (1.6-2.3) mg/dL AST 82 H (17-59) U/L Total Protein 5.9 L (6.3-8.2) g/dL 02/01/18 02/01/18 02/01/18 Range/Units 04:15 04:17 05:13 WBC 18.2 H (3.8-10.6) k/uL RBC 3.44 L (4.30-5.90) m/uL Hgb 9.7 L (13.0-17.5) gm/dL Hct 30.2 L (39.0-53.0) % Neutrophils # (Manual) 15.40 H (1.3-7.7) k/uL Lymphocytes # (Manual) 0.55 L (1.0-4.8) k/uL Monocytes # (Manual) 2.00 H (0-1.0) k/uL Myelocytes # (Manual) 0.18 H (0) k/uL ABG pCO2 (35-45) mmHg ABG pO2 (83-108) mmHg ABG HCO3 (21-25) mmol/L Sodium (137-145) mmol/L Carbon Dioxide (22-30) mmol/L BUN (9-20) mg/dL Creatinine (0.66-1.25) mg/dL Glucose (74-99) mg/dL POC Glucose (mg/dL) 111 H 141 H (75-99) mg/dL Magnesium (1.6-2.3) mg/dL AST (17-59) U/L Total Protein (6.3-8.2) g/dL 02/01/18 02/01/18 02/01/18 Range/Units 06:12 07:07 08:15 WBC (3.8-10.6) k/uL RBC (4.30-5.90) m/uL Hgb (13.0-17.5) gm/dL Hct (39.0-53.0) % Neutrophils # (Manual) (1.3-7.7) k/uL Lymphocytes # (Manual) (1.0-4.8) k/uL Monocytes # (Manual) (0-1.0) k/uL Myelocytes # (Manual) (0) k/uL ABG pCO2 (35-45) mmHg ABG pO2 (83-108) mmHg ABG HCO3 (21-25) mmol/L Sodium (137-145) mmol/L Carbon Dioxide (22-30) mmol/L BUN (9-20) mg/dL Creatinine (0.66-1.25) mg/dL Glucose (74-99) mg/dL POC Glucose (mg/dL) 141 H 128 H 112 H (75-99) mg/dL Magnesium (1.6-2.3) mg/dL AST (17-59) U/L Total Protein (6.3-8.2) g/dL 02/01/18 02/01/18 02/01/18 Range/Units 09:31 10:30 11:24 WBC (3.8-10.6) k/uL RBC (4.30-5.90) m/uL Hgb (13.0-17.5) gm/dL Hct (39.0-53.0) % Neutrophils # (Manual) (1.3-7.7) k/uL Lymphocytes # (Manual) (1.0-4.8) k/uL Monocytes # (Manual) (0-1.0) k/uL Myelocytes # (Manual) (0) k/uL ABG pCO2 (35-45) mmHg ABG pO2 (83-108) mmHg ABG HCO3 (21-25) mmol/L Sodium (137-145) mmol/L Carbon Dioxide (22-30) mmol/L BUN (9-20) mg/dL Creatinine (0.66-1.25) mg/dL Glucose (74-99) mg/dL POC Glucose (mg/dL) 145 H 138 H 117 H (75-99) mg/dL Magnesium (1.6-2.3) mg/dL AST (17-59) U/L Total Protein (6.3-8.2) g/dL 02/01/18 02/01/18 02/01/18 Range/Units 12:07 13:07 14:24 WBC (3.8-10.6) k/uL RBC (4.30-5.90) m/uL Hgb (13.0-17.5) gm/dL Hct (39.0-53.0) % Neutrophils # (Manual) (1.3-7.7) k/uL Lymphocytes # (Manual) (1.0-4.8) k/uL Monocytes # (Manual) (0-1.0) k/uL Myelocytes # (Manual) (0) k/uL ABG pCO2 (35-45) mmHg ABG pO2 (83-108) mmHg ABG HCO3 (21-25) mmol/L Sodium (137-145) mmol/L Carbon Dioxide (22-30) mmol/L BUN (9-20) mg/dL Creatinine (0.66-1.25) mg/dL Glucose (74-99) mg/dL POC Glucose (mg/dL) 103 H 106 H 135 H (75-99) mg/dL Magnesium (1.6-2.3) mg/dL AST (17-59) U/L Total Protein (6.3-8.2) g/dL 02/01/18 Range/Units 15:21 WBC (3.8-10.6) k/uL RBC (4.30-5.90) m/uL Hgb (13.0-17.5) gm/dL Hct (39.0-53.0) % Neutrophils # (Manual) (1.3-7.7) k/uL Lymphocytes # (Manual) (1.0-4.8) k/uL Monocytes # (Manual) (0-1.0) k/uL Myelocytes # (Manual) (0) k/uL ABG pCO2 (35-45) mmHg ABG pO2 (83-108) mmHg ABG HCO3 (21-25) mmol/L Sodium (137-145) mmol/L Carbon Dioxide (22-30) mmol/L BUN (9-20) mg/dL Creatinine (0.66-1.25) mg/dL Glucose (74-99) mg/dL POC Glucose (mg/dL) 145 H (75-99) mg/dL Magnesium (1.6-2.3) mg/dL AST (17-59) U/L Total Protein (6.3-8.2) g/dL Assessment and Plan Plan: 1. Severe mitral regurgitation and CAD with 2 vessel critical stenosis s/p CABG , and mitral valve repair POD1 , Dr. Spicer from cardiovascular surgery. Cardiology is following. Dr. Vides is covering for intensive care management. extubated 2. Diabetes mellitus type 2 previous oral medications have been discontinued mainly Glucotrol and metformin, continue tradjenta, Levemir at 15 units every at bedtime, and insulin drip until diet has been optimized postop 3. New onset atrial fibrillation, paroxysmal, currently on IV heparin and Toprol-XL 4. CKD stage II with baseline creatinine 1.01, continue to monitor. Debility, 5. CAD with previous PCI and stent placement with recent cardiac cath [address] Reynolds found to have 60-70% stenosis involving left circumflex AV groove circumflex ostial portion, and RCA 80% stenosis mid RCA, EF 50-55% left ventricle end-diastolic pressure 14 severe mitral regurgitation. Continue lisinopril 10 mg twice a day, metoprolol 50 mg daily aspirin Lipitor 40 6. BPH without urinary tract symptomatology. Continue Flomax or 0.8 mg at bedtime daily. Monitor for urinary retention. 7. Mild intermittent asthma without any current exacerbation with COPD and when necessary nebulizer, incentive spirometry, 8. Hypertensive cardiovascular disease. On Toprol-XL. 9. History of skin cancer 10. Osteoarthritis, generalized. 11. Hyperlipidemia on Lipitor 40 mg daily GI prophylaxis DVT prophylaxis currently on IV heparin Discharge plan: To be determined
[2018-02-01 16:19] LABS: Glucose,Whole Blood 131 mg/dL (75-99)
[2018-02-01 17:36] LABS: Glucose,Whole Blood 118 mg/dL (75-99)
[2018-02-01 18:12] LABS: Glucose,Whole Blood 108 mg/dL (75-99)
[2018-02-01 19:11] LABS: Glucose,Whole Blood 94 mg/dL (75-99)
[2018-02-01 20:09] LABS: Glucose,Whole Blood 118 mg/dL (75-99)
[2018-02-01] MEDS: LACTATED RINGERS 1,000 ML IV SCH (20:24)
[2018-02-01] MEDS: SENNOSIDES-DOCUSATE SODIUM 1 EACH TAB PO SCH (20:44)
[2018-02-01] MEDS: LINAGLIPTIN 5 MG TABLET PO SCH (20:45)
[2018-02-01] MEDS: INSULIN DETEMIR 100 UNIT/ML 10 ML VIAL SQ SCH (20:45)
[2018-02-01] MEDS: METOPROLOL TARTRATE 12.5 MG TAB PO SCH (20:45)
[2018-02-01 21:29] LABS: Glucose,Whole Blood 115 mg/dL (75-99)
[2018-02-01] MEDS: IPRATROPIUM-ALBUTEROL 3 ML NEB INHALATION PRN (21:41)
[2018-02-01 22:03] LABS: Glucose,Whole Blood 103 mg/dL (75-99)
--- NOTE | 2018-02-01 22:20 | PN ---
PROGRESS NOTE DATE OF SERVICE: 02/01/18 He was seen again on January2017. He had been short of breath during the night, had to be placed on BiPAP and subsequently was started on a Lasix drip. He is off BiPAP, feeling better than this morning. He continues to, however, have a positive fluid balance. On physical examination, his blood pressure is 100/61, respiratory rate of 18, pulse of 101, temperature 98.2, O2 saturation on 4 L by nasal cannula is 97%. HEENT is unremarkable. Chest reveals decreased breath sounds left base. Cardiovascular system is S1, S2. No S3, no S4. Abdomen is soft. There is trace pedal edema. Labs reveal a glucose of 131. White count 18.2, hemoglobin 9.7. IMPRESSION: 1. Status post mitral valve surgery and coronary artery bypass. 2. Marginal respiratory status in part due to fluid overload. 3. Leukocytosis, etiology of which is unclear at this time, but I doubt significant pneumonia. Continue to attempt to keep him in negative fluid balance. Continue BiPAP as needed. Continue bronchodilators. Encourage him to use his incentive spirometer. Depending on how he does we should make further changes to his care. MMODL / IJN: [id number] /
[2018-02-01 23:08] LABS: Glucose,Whole Blood 109 mg/dL (75-99)
[2018-02-02 00:21] LABS: Glucose,Whole Blood 135 mg/dL (75-99)
[2018-02-02 01:18] LABS: Glucose,Whole Blood 102 mg/dL (75-99)
[2018-02-02] MEDS: FUROSEMIDE 250 MG in SODIUM CHLORIDE 0.9% 225 ML IVP SCH ×2 (02:10→14:20)
[2018-02-02 02:54] LABS: Glucose,Whole Blood 119 mg/dL (75-99)
[2018-02-02 03:05] LABS: Glucose,Whole Blood 102 mg/dL (75-99)
[2018-02-02] MEDS: HYDROcodone/APAP 5-325MG 1 EACH TAB PO PRN ×4 (03:31→23:59)
[2018-02-02 03:57] LABS: HCT 28.2 % (39.0-53.0); HGB 9.4 gm/dL (13.0-17.5); MCH 29.1 pg (25.0-35.0); MCHC 33.4 g/dL (31.0-37.0); MCV 87.2 fL (80.0-100.0); Mean Platelet Volume 9.6; Platelet Count 173 k/uL (150-450); RBC 3.24 m/uL (4.30-5.90); RDW 14.7 % (11.5-15.5); WBC 19.7 k/uL (3.8-10.6)
[2018-02-02 04:04] LABS: Ionized Calcium 4.6 mg/dL (4.5-5.3)
[2018-02-02 04:10] LABS: Glucose,Whole Blood 104 mg/dL (75-99)
[2018-02-02 04:10] LABS: INR 1.1 (<1.2); Prothrombin Time 11.1 sec (9.0-12.0)
[2018-02-02 04:14] LABS: Albumin 3.5 g/dL (3.5-5.0); Calcium 8.6 mg/dL (8.4-10.2); Magnesium 2.3 mg/dL (1.6-2.3); Phosphorus 5.7 mg/dL (2.5-4.5); Potassium 4.5 mmol/L (3.5-5.1); Total Bilirubin 1.2 mg/dL (0.2-1.3); Total Protein 5.8 g/dL (6.3-8.2)
[2018-02-02 05:15] LABS: Glucose,Whole Blood 126 mg/dL (75-99)
[2018-02-02 06:09] LABS: Glucose,Whole Blood 109 mg/dL (75-99)
--- NOTE | 2018-02-02 06:16 | P.CONS ---
History of Present Illness - Chief Complaint Cardiac debility - History of Present Illness I had the opportunity to see patient for inpatient rehab consultation with regard to cardiac debility. He is admitted to [facility] January 27 with some chest discomfort and shortness of breath. Workup revealed cardiac and valvular disease. Underwent two-vessel CABG and MVR. Seen in ICU by Drs. Marte and Blaise. Chest x-rays followed and note improved aeration. PT and OT prescribed. Previous functional history as elicited patient: 77-year-old left-handed white male who is lives in one floor home with and daughter. Retired. and daughter generally do the cooking and laundry and driving. Patient independent with driving, standing shower and gait without device. Regular doctors . Review of Systems Review of systems: ENT: Denies sneezes or discharge. Eyes: Denies discharge or photophobia. Cardiac: Mild sternal discomfort. Pulmonary: At least moderate shortness of breath. Gastrointestinal: Denies nausea, emesis, constipation, diarrhea. Genitourinary: Denies discharge or frequency. Musculoskeletal: Denies muscle or bone aches. Neurologic: Generalized weakness. Endocrine: Denies shakes or sweats. Oncology: Denies cancers. Dermatologic: Denies rash, itching, pruritus. ALLERGY/immunology: Denies sneezes, rashes. 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.), COPD , Diabetes Mellitus, Eye Disorder (Cataracts), GI Bleed (History of GI bleed, received blood products.), Hyperlipidemia, Hypertension, Osteoarthritis (OA), Prostate Disorder Additional Past Medical History / Comment(s): New onset of afib since admission to [facility] on 01/21/18 History of Any Multi-Drug Resistant Organisms: None Reported Past Surgical History: Heart Catheterization, Heart Catheterization With Stent, Joint Replacement, Orthopedic Surgery, Tonsillectomy Additional Past Surgical History / Comment(s): Right shoulder surgery, left knee replacement, colonoscopy with polypectomy, skin biopsy, cardiac stents X2 Past Anesthesia/Blood Transfusion Reactions: No Reported Reaction Date of Last Stent Placement:: unknown Past Psychological History: No Psychological Hx Reported Smoking Status: Former smoker (Quit 20 years ago.) Past Alcohol Use History: Rare (Maybe drinks one 6 pack of beer per year. ) Past Drug Use History: None Reported - Past Family History Mother Family Medical History: Asthma, COPD Father History Unknown: Yes (Mother 76 from COPD, and diabetes mellitus type 2, father at 58 secondary to MS, one sister 89 years old, for doctors to them with diabetes mellitus type 2) Family Medical History: Myocardial Infarction (MS) (Myocardial infarction in his 50s.) Medications and Allergies Home Medications Medication Instructions Recorded Confirmed Type Atorvastatin [Lipitor] 40 mg PO HS 01/27/18 01/27/18 History Benazepril HCl 10 mg PO HS 01/27/18 01/27/18 History Cholecalciferol (Vitamin D3) 2,000 unit PO HS 01/27/18 01/27/18 History [Vitamin D3] Magnesium Oxide [Mag-Ox] 400 mg PO HS 01/27/18 01/27/18 History Metoprolol Succinate (ER) [Toprol 50 mg PO HS 01/27/18 01/27/18 History Xl] Tamsulosin [Flomax] 0.8 mg PO HS 01/27/18 01/27/18 History glipiZIDE/METFORMIN HCL 2 tab PO HS 01/27/18 01/27/18 History [glipiZIDE/METFORMIN HCL 2.5-500 mg] sitaGLIPtin [Januvia] 100 mg PO HS 01/27/18 01/27/18 History Allergies Allergy/AdvReac Type Severity Reaction Status Date / Time No Known Allergies Allergy Verified 01/27/18 23:01 Physical Exam Vitals: Vital Signs Temp Pulse Resp BP Pulse Ox 02/02/18 04:00 98 F 102 H 14 105/57 97 02/02/18 03:55 15 02/02/18 03:30 103 H 18 92/60 96 02/02/18 03:00 102 H 15 103/63 99 02/02/18 02:30 101 H 21 99/58 98 02/02/18 02:00 101 H 18 99/58 99 02/02/18 01:30 105 H 18 98/58 98 02/02/18 01:00 105 H 20 98/58 98 02/02/18 00:30 100 19 95/59 99 02/02/18 00:00 98.2 F 99 20 95/59 99 02/01/18 23:30 99 22 102/56 99 05/13/18 23:00 100 17 95/55 98 05/13/18 22:30 104 H 18 122/61 97 05/13/18 22:00 105 H 21 122/61 96 05/13/18 21:50 104 H 05/13/18 21:43 105 H 05/13/18 21:30 105 H 21 110/63 95 05/13/18 21:00 103 H 27 H 95/58 92 L 05/13/18 20:30 101 H 16 113/59 94 L 05/13/18 20:00 97.9 F 100 22 116/65 97 05/13/18 19:00 97 20 91/55 98 05/13/18 18:30 97 21 93/55 98 05/13/18 18:00 92 25 H 93/55 97 05/13/18 17:30 98 25 H 102/52 95 05/13/18 17:00 103 H 24 102/52 95 05/13/18 16:30 103 H 22 100/61 95 05/13/18 16:00 98.2 F 101 H 18 100/61 97 05/13/18 15:55 101 H 05/13/18 15:39 102 H 21 05/13/18 15:30 103 H 24 112/61 95 05/13/18 15:00 99 21 112/61 95 05/13/18 14:00 97 23 96 05/13/18 13:30 99 22 96 05/13/18 13:00 102 H 23 92 L 05/13/18 12:30 103 H 15 114/66 95 05/13/18 12:04 99 28 H 114/66 94 L 05/13/18 12:00 98.3 F 104 H 22 114/66 94 L 05/13/18 11:45 103 H 29 H 114/66 94 L 05/13/18 11:40 104 H 05/13/18 11:33 19 05/13/18 11:30 105 H 29 H 107/50 94 L 05/13/18 11:21 107 H 05/13/18 11:15 105 H 26 H 107/50 90 L 05/13/18 11:00 100 19 97 05/13/18 10:45 100 21 96 05/13/18 10:30 100 25 H 97 05/13/18 10:00 112 H 28 H 107/50 97 02/01/18 09:00 93 25 H 84/63 98 02/01/18 08:15 93 02/01/18 08:02 97 02/01/18 08:00 97 28 H 98 02/01/18 07:00 96 18 96 02/01/18 06:30 94 18 94 L Intake and Output 02/01/18 02/01/18 02/02/18 14:59 22:59 06:59 Intake Total 1215.883 810.017 584.477 Output Total 605 705 525 Balance 610.883 105.017 59.477 Intake: IV 549 416 336 .9NS Cardiac Output 20 0.9NS Pressure Bags 69 36 36 Furosemide 250 mg In 140 140 120 Sodium Chloride 0.9% 225 ml @ 20 MG/HR 20 mls/hr IVP .[id number] SHAUNA Rx#: [id number] Lactated Ringers 1,000 ml 320 240 180 @ 20 mls/hr IV .Q24H SHAUNA Rx#:[id number] Intake, IV Titration 316.883 144.017 248.477 Amount Clevidipine Butyrate 25 8.533 mg In Empty Bag 1 bag @ 1 MG/HR 2 mls/hr IV .Q24H SHAUNA Rx#:[id number] Furosemide 250 mg In 234.667 60.333 201.333 Sodium Chloride 0.9% 225 ml @ 20 MG/HR 20 mls/hr IVP .[id number] SHAUNA Rx#: [id number] Insulin Regular 100 unit 56.113 51.853 26.07 In Sodium Chloride 0.9% 100 ml @ Per Protocol IV .Q0M SHAUNA Rx#:[id number] Milrinone-D5w Pmx 20 mg 17.57 31.831 21.074 In Dextrose/Water 1 100ml .bag @ 0.2 MCG/KG/MIN 6. 63 mls/hr IV .Q15H5M SHAUNA Rx#:[id number] Oral 350 250 Output: Chest Tube Drainage [address] X 1 [address] X 2 80 60 20 Urine 445 605 495 Other: Voiding Method Indwelling Catheter Indwelling Catheter Indwelling Catheter ABP, PAP, CO, CI - Last 8 Hours Arterial Blood Pressure 120/55 Arterial Blood Pressure 95/51 Arterial Blood Pressure 106/51 Arterial Blood Pressure 133/53 Arterial Blood Pressure 115/52 Arterial Blood Pressure 112/52 Arterial Blood Pressure 101/55 Arterial Blood Pressure 120/55 Arterial Blood Pressure 123/58 Arterial Blood Pressure 113/54 Arterial Blood Pressure 112/53 Arterial Blood Pressure 127/59 Skin: Good color, texture, turgor. General: Overweight to obese build and comfortable appearance. Head: Normocephalic, atraumatic. Eyes: Symmetric. Pupils equal round. Ears: Symmetric. Hearing within normal limits. Mouth: Clear. Neck: Supple. Carotid without bruit. Cardiac: Regular rate and rhythm. Wearing harness. Lungs: Clear anteriorly and posteriorly. Abdomen: Soft active nontender. Extremities: Normal tone. Neurological: Mental status: Alert, cooperative, pleasant. Cranial nerves: Symmetric facial tone and trapezius. Motor: Active movement all 4 limbs. Sensation: Intact throughout. DTRs: Symmetric and equal throughout. Mobility: 2-3 person assist for safety for transfers from bed to Shira chair. Results CBC & Chem 7: 02/02/18 03:49 02/02/18 03:49 Labs: Abnormal Lab Results - Last 24 Hours (Table) 02/01/18 02/01/18 02/01/18 Range/Units 06:12 07:07 08:15 WBC (3.8-10.6) k/uL RBC (4.30-5.90) m/uL Hgb (13.0-17.5) gm/dL Hct (39.0-53.0) % Sodium (137-145) mmol/L Carbon Dioxide (22-30) mmol/L BUN (9-20) mg/dL Creatinine (0.66-1.25) mg/dL POC Glucose (mg/dL) 141 H 128 H 112 H (75-99) mg/dL Phosphorus (2.5-4.5) mg/dL AST (17-59) U/L Total Protein (6.3-8.2) g/dL 02/01/18 02/01/18 02/01/18 Range/Units 09:31 10:30 11:24 WBC (3.8-10.6) k/uL RBC (4.30-5.90) m/uL Hgb (13.0-17.5) gm/dL Hct (39.0-53.0) % Sodium (137-145) mmol/L Carbon Dioxide (22-30) mmol/L BUN (9-20) mg/dL Creatinine (0.66-1.25) mg/dL POC Glucose (mg/dL) 145 H 138 H 117 H (75-99) mg/dL Phosphorus (2.5-4.5) mg/dL AST (17-59) U/L Total Protein (6.3-8.2) g/dL 02/01/18 02/01/18 02/01/18 Range/Units 12:07 13:07 14:24 WBC (3.8-10.6) k/uL RBC (4.30-5.90) m/uL Hgb (13.0-17.5) gm/dL Hct (39.0-53.0) % Sodium (137-145) mmol/L Carbon Dioxide (22-30) mmol/L BUN (9-20) mg/dL Creatinine (0.66-1.25) mg/dL POC Glucose (mg/dL) 103 H 106 H 135 H (75-99) mg/dL Phosphorus (2.5-4.5) mg/dL AST (17-59) U/L Total Protein (6.3-8.2) g/dL 02/01/18 02/01/18 02/01/18 Range/Units 15:21 16:14 17:33 WBC (3.8-10.6) k/uL RBC (4.30-5.90) m/uL Hgb (13.0-17.5) gm/dL Hct (39.0-53.0) % Sodium (137-145) mmol/L Carbon Dioxide (22-30) mmol/L BUN (9-20) mg/dL Creatinine (0.66-1.25) mg/dL POC Glucose (mg/dL) 145 H 131 H 118 H (75-99) mg/dL Phosphorus (2.5-4.5) mg/dL AST (17-59) U/L Total Protein (6.3-8.2) g/dL 02/01/18 02/01/18 02/01/18 Range/Units 18:09 20:07 21:16 WBC (3.8-10.6) k/uL RBC (4.30-5.90) m/uL Hgb (13.0-17.5) gm/dL Hct (39.0-53.0) % Sodium (137-145) mmol/L Carbon Dioxide (22-30) mmol/L BUN (9-20) mg/dL Creatinine (0.66-1.25) mg/dL POC Glucose (mg/dL) 108 H 118 H 115 H (75-99) mg/dL Phosphorus (2.5-4.5) mg/dL AST (17-59) U/L Total Protein (6.3-8.2) g/dL 02/01/18 02/01/18 02/01/18 Range/Units 22:00 23:06 23:57 WBC (3.8-10.6) k/uL RBC (4.30-5.90) m/uL Hgb (13.0-17.5) gm/dL Hct (39.0-53.0) % Sodium (137-145) mmol/L Carbon Dioxide (22-30) mmol/L BUN (9-20) mg/dL Creatinine (0.66-1.25) mg/dL POC Glucose (mg/dL) 103 H 109 H 135 H (75-99) mg/dL Phosphorus (2.5-4.5) mg/dL AST (17-59) U/L Total Protein (6.3-8.2) g/dL 02/02/18 02/02/18 02/02/18 Range/Units 01:04 02:09 03:03 WBC (3.8-10.6) k/uL RBC (4.30-5.90) m/uL Hgb (13.0-17.5) gm/dL Hct (39.0-53.0) % Sodium (137-145) mmol/L Carbon Dioxide (22-30) mmol/L BUN (9-20) mg/dL Creatinine (0.66-1.25) mg/dL POC Glucose (mg/dL) 102 H 119 H 102 H (75-99) mg/dL Phosphorus (2.5-4.5) mg/dL AST (17-59) U/L Total Protein (6.3-8.2) g/dL 02/02/18 02/02/18 02/02/18 Range/Units 03:49 03:49 04:07 WBC 19.7 H (3.8-10.6) k/uL RBC 3.24 L (4.30-5.90) m/uL Hgb 9.4 L (13.0-17.5) gm/dL Hct 28.2 L (39.0-53.0) % Sodium 135 L (137-145) mmol/L Carbon Dioxide 21 L (22-30) mmol/L BUN 49 H (9-20) mg/dL Creatinine 3.06 H (0.66-1.25) mg/dL POC Glucose (mg/dL) 104 H (75-99) mg/dL Phosphorus 5.7 H (2.5-4.5) mg/dL AST 76 H (17-59) U/L Total Protein 5.8 L (6.3-8.2) g/dL 02/02/18 02/02/18 Range/Units 05:13 06:07 WBC (3.8-10.6) k/uL RBC (4.30-5.90) m/uL Hgb (13.0-17.5) gm/dL Hct (39.0-53.0) % Sodium (137-145) mmol/L Carbon Dioxide (22-30) mmol/L BUN (9-20) mg/dL Creatinine (0.66-1.25) mg/dL POC Glucose (mg/dL) 126 H 109 H (75-99) mg/dL Phosphorus (2.5-4.5) mg/dL AST (17-59) U/L Total Protein (6.3-8.2) g/dL Chest x-ray: report reviewed (Chest x-rays followed and note improved aeration.) Assessment and Plan (1) H/O coronary artery bypass surgery Current Visit: Yes Status: Acute Code(s): Z95.1 - PRESENCE OF AORTOCORONARY BYPASS GRAFT SNOMED Code(s): 165194301 (2) History of mitral valve repair Current Visit: Yes Status: Acute Code(s): Z98.890 - OTHER SPECIFIED POSTPROCEDURAL STATES SNOMED Code(s): 760030180 Plan: Impression: 1. Cardiac debility. 2. Cardiac surgery 2 vessel coronary bypass and MVR. 3. COPD with asthma. 4. Coronary disease. 5. Hypertension. 6. Dyslipidemia. 7. Diabetes. 8. Osteoarthritis. 9. Atrial fibrillation. Comments and plan: At this time PT and OT prescribed. We'll follow therapies with yourself for possible need and benefit of inpatient rehab.
[2018-02-02 07:03] LABS: Glucose,Whole Blood 148 mg/dL (75-99)
--- NOTE | 2018-02-02 07:11 | XR ---
EXAMINATION TYPE: XR chest 1V portable DATE OF EXAM: 02/02/2018 COMPARISON: Prior chest x-ray 02/01/2018 HISTORY: Postop cardiac surgery TECHNIQUE: Single frontal view of the chest is obtained. FINDINGS: Patient is post median sternotomy and atrial appendage clipping, patient is rotated. Heart remains enlarged. Interstitium is increased. Left-sided chest tube, right jugular central venous she ath, median sternal drains again noted. Bibasilar increased density persists. No sizable thorax is ev ident. Central venous catheter has been removed in the interval. IMPRESSION: There may be basilar atelectasis and small effusions, correlate for possible edema.
[2018-02-02] MEDS: IPRATROPIUM-ALBUTEROL 3 ML NEB INHALATION SCH ×4 (07:56→20:42)
[2018-02-02 07:57] LABS: Glucose,Whole Blood 174 mg/dL (75-99)
[2018-02-02] MEDS: HEPARIN SODIUM,PORCINE 5,000 UNIT/ML 1 ML VIAL SQ SCH ×2 (07:58→16:37)
[2018-02-02] MEDS: PANTOPRAZOLE 40 MG TABLET PO SCH (07:59)
[2018-02-02] MEDS: CLOPIDOGREL 75 MG TAB PO SCH (08:11)
[2018-02-02] MEDS: ASPIRIN 325 MG TAB PO SCH (08:11)
[2018-02-02] MEDS: guaiFENesin 600 MG TABLET.ER PO SCH ×2 (08:12→20:37)
[2018-02-02] MEDS: MUPIROCIN 2% OINT 22 GM TUBE NASAL SCH ×2 (08:12→20:36)
[2018-02-02] MEDS: ATORVASTATIN 40 MG TAB PO SCH (08:12)
[2018-02-02] MEDS: AMIODARONE 200 MG TAB PO SCH ×2 (08:12→20:37)
[2018-02-02] MEDS ORDERED: METOCLOPRAMIDE 5 MG/ML 2 ML VIAL IVP STA (08:43)
--- NOTE | 2018-02-02 09:10 | P.PN ---
Subjective Progress Note Date: 02/02/18 Principal diagnosis: Severe mitral regurgitation. 2 vessel coronary artery disease. New onset preoperative paroxysmal atrial fibrillation. 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 POD #3 urgent mitral valve repair with a #30 mm [employer] annular flex band. Clip ligation of the left atrial appendage with a #35 mm AtriClip. Coronary bypass grafting 2 with reverse saphenous vein graft off the aorta to the circumflex artery and the right coronary artery. Endoscopic harvesting of the right greater saphenous vein. Complete left-sided maze procedure using radiofrequency ablation as well as cryoablation. Intraoperative transesophageal echocardiogram. Postoperative acute kidney injury, an unexpected but potential outcome of surgery secondary to hemodynamic instability. The patient is currently sitting up in a recliner in no acute distress. States he has no chest pain except when coughing which is controlled with current medications, denies shortness of breath. Remains on IV Lasix, Primacor, and dopamine. Objective - Vital Signs Vital signs: Vital Signs Temp 98.4 F 02/02/18 08:00 Pulse 100 02/02/18 08:07 Resp 19 02/02/18 08:00 BP 92/59 02/02/18 08:00 Pulse Ox 98 02/02/18 08:00 Intake & Output 02/01/18 02/02/18 02/02/18 18:59 06:59 18:59 Intake Total 1785.538 942.764 99.579 Output Total 945 1170 135 Balance 840.538 -227.236 -35.421 Weight 111 kg Intake: IV 741 672 92 .9NS Cardiac Output 20 0.9NS Pressure Bags 81 72 12 Furosemide 250 mg In 200 240 20 Sodium Chloride 0.9% 225 ml @ 20 MG/HR 20 mls/hr IVP .[id number] SHAUNA Rx#: [id number] Lactated Ringers 1,000 ml 440 360 60 @ 20 mls/hr IV .Q24H SHAUNA Rx#:[id number] Intake, IV Titration 444.538 270.764 7.579 Amount Clevidipine Butyrate 25 8.533 mg In Empty Bag 1 bag @ 1 MG/HR 2 mls/hr IV .Q24H SHAUNA Rx#:[id number] Furosemide 250 mg In 295.000 201.333 Sodium Chloride 0.9% 225 ml @ 20 MG/HR 20 mls/hr IVP .[id number] SHAUNA Rx#: [id number] Insulin Regular 100 unit 91.604 48.357 7.579 In Sodium Chloride 0.9% 100 ml @ Per Protocol IV .Q0M SHAUNA Rx#:[id number] Milrinone-D5w Pmx 20 mg 49.401 21.074 In Dextrose/Water 1 100ml .bag @ 0.2 MCG/KG/MIN 6. 63 mls/hr IV .Q15H5M SHAUNA Rx#:[id number] Oral 600 Output: Chest Tube Drainage [address] X 1 [address] X 2 120 90 0 Urine 715 1030 135 Other: Voiding Method Indwelling Catheter Indwelling Catheter ABP, PAP, CO, CI - Last Documented Arterial Blood Pressure 94/48 Pulmonary Artery Pressure 35/18 Cardiac Output 4.8 Cardiac Index 2.9 - Constitutional General appearance: Present: cooperative, no acute distress - Respiratory Details: Lungs sounds diminished bilaterally. Respirations even, nonlabored. Currently on 6 L nasal cannula with oxygen saturation 96%. Able to achieve 750 mL on his incentive spirometry. Weak cough. Mediastinal chest tube to continuous wall suction, 70 mL serosanguineous drainage overnight, 210 mL in the last 24 hours. Left pleural chest tube to continuous wall suction, 40 mL serosanguineous drainage overnight, 140 mL in the last 24 hours. No air leaks present. - Cardiovascular Details: S1, S2 present. Regular rate and rhythm, sinus rhythm with first-degree AV block on telemetry. A/V epicardial pacemaker wires present, connected to generator, VVI mode with backup rate 50 bpm. Sternum stable. Palpable peripheral pulses bilaterally. No edema present. No calf pain or tenderness noted. Right internal jugular Cordis, right radial arterial line present. Antiembolism stockings, SCDs present. Heart hugger in place with patient demonstrating appropriate use. - Gastrointestinal Gastrointestinal Comment(s): Abdomen soft, nontender, nondistended. Active bowel sounds present 4 quadrants. Tolerating diet. Positive belching, negative flatus, negative BM. - Genitourinary Genitourinary Comment(s): Narvaez catheter present draining clear, yellow urine. Output overnight was 75 225 mL per hour. Currently on Lasix IV continuous drip. - Integumentary Integumentary Comment(s): Skin is warm and dry with evidence of good perfusion. Anterior chest incision well approximated and covered with dry intact dressing. Right lower extremity EVH site well approximated. - Neurologic Neurologic: Present: CNII-XII intact - Musculoskeletal Musculoskeletal: Present: gait normal, strength equal bilaterally - Psychiatric Psychiatric: Present: A&O x's 3, appropriate affect, intact judgment & insight - Allied health notes Allied health notes reviewed: nursing - Labs CBC & Chem 7: 02/02/18 03:49 02/02/18 03:49 Labs: Abnormal Lab Results - Last 24 Hours (Table) 02/01/18 02/01/18 02/01/18 Range/Units 09:31 10:30 11:24 WBC (3.8-10.6) k/uL RBC (4.30-5.90) m/uL Hgb (13.0-17.5) gm/dL Hct (39.0-53.0) % Sodium (137-145) mmol/L Carbon Dioxide (22-30) mmol/L BUN (9-20) mg/dL Creatinine (0.66-1.25) mg/dL POC Glucose (mg/dL) 145 H 138 H 117 H (75-99) mg/dL Phosphorus (2.5-4.5) mg/dL AST (17-59) U/L Total Protein (6.3-8.2) g/dL 02/01/18 02/01/18 02/01/18 Range/Units 12:07 13:07 14:24 WBC (3.8-10.6) k/uL RBC (4.30-5.90) m/uL Hgb (13.0-17.5) gm/dL Hct (39.0-53.0) % Sodium (137-145) mmol/L Carbon Dioxide (22-30) mmol/L BUN (9-20) mg/dL Creatinine (0.66-1.25) mg/dL POC Glucose (mg/dL) 103 H 106 H 135 H (75-99) mg/dL Phosphorus (2.5-4.5) mg/dL AST (17-59) U/L Total Protein (6.3-8.2) g/dL 02/01/18 02/01/18 02/01/18 Range/Units 15:21 16:14 17:33 WBC (3.8-10.6) k/uL RBC (4.30-5.90) m/uL Hgb (13.0-17.5) gm/dL Hct (39.0-53.0) % Sodium (137-145) mmol/L Carbon Dioxide (22-30) mmol/L BUN (9-20) mg/dL Creatinine (0.66-1.25) mg/dL POC Glucose (mg/dL) 145 H 131 H 118 H (75-99) mg/dL Phosphorus (2.5-4.5) mg/dL AST (17-59) U/L Total Protein (6.3-8.2) g/dL 02/01/18 02/01/18 02/01/18 Range/Units 18:09 20:07 21:16 WBC (3.8-10.6) k/uL RBC (4.30-5.90) m/uL Hgb (13.0-17.5) gm/dL Hct (39.0-53.0) % Sodium (137-145) mmol/L Carbon Dioxide (22-30) mmol/L BUN (9-20) mg/dL Creatinine (0.66-1.25) mg/dL POC Glucose (mg/dL) 108 H 118 H 115 H (75-99) mg/dL Phosphorus (2.5-4.5) mg/dL AST (17-59) U/L Total Protein (6.3-8.2) g/dL 02/01/18 02/01/18 02/01/18 Range/Units 22:00 23:06 23:57 WBC (3.8-10.6) k/uL RBC (4.30-5.90) m/uL Hgb (13.0-17.5) gm/dL Hct (39.0-53.0) % Sodium (137-145) mmol/L Carbon Dioxide (22-30) mmol/L BUN (9-20) mg/dL Creatinine (0.66-1.25) mg/dL POC Glucose (mg/dL) 103 H 109 H 135 H (75-99) mg/dL Phosphorus (2.5-4.5) mg/dL AST (17-59) U/L Total Protein (6.3-8.2) g/dL 02/02/18 02/02/18 02/02/18 Range/Units 01:04 02:09 03:03 WBC (3.8-10.6) k/uL RBC (4.30-5.90) m/uL Hgb (13.0-17.5) gm/dL Hct (39.0-53.0) % Sodium (137-145) mmol/L Carbon Dioxide (22-30) mmol/L BUN (9-20) mg/dL Creatinine (0.66-1.25) mg/dL POC Glucose (mg/dL) 102 H 119 H 102 H (75-99) mg/dL Phosphorus (2.5-4.5) mg/dL AST (17-59) U/L Total Protein (6.3-8.2) g/dL 02/02/18 02/02/18 02/02/18 Range/Units 03:49 03:49 04:07 WBC 19.7 H (3.8-10.6) k/uL RBC 3.24 L (4.30-5.90) m/uL Hgb 9.4 L (13.0-17.5) gm/dL Hct 28.2 L (39.0-53.0) % Sodium 135 L (137-145) mmol/L Carbon Dioxide 21 L (22-30) mmol/L BUN 49 H (9-20) mg/dL Creatinine 3.06 H (0.66-1.25) mg/dL POC Glucose (mg/dL) 104 H (75-99) mg/dL Phosphorus 5.7 H (2.5-4.5) mg/dL AST 76 H (17-59) U/L Total Protein 5.8 L (6.3-8.2) g/dL 02/02/18 02/02/18 02/02/18 Range/Units 05:13 06:07 07:02 WBC (3.8-10.6) k/uL RBC (4.30-5.90) m/uL Hgb (13.0-17.5) gm/dL Hct (39.0-53.0) % Sodium (137-145) mmol/L Carbon Dioxide (22-30) mmol/L BUN (9-20) mg/dL Creatinine (0.66-1.25) mg/dL POC Glucose (mg/dL) 126 H 109 H 148 H (75-99) mg/dL Phosphorus (2.5-4.5) mg/dL AST (17-59) U/L Total Protein (6.3-8.2) g/dL 02/02/18 Range/Units 07:55 WBC (3.8-10.6) k/uL RBC (4.30-5.90) m/uL Hgb (13.0-17.5) gm/dL Hct (39.0-53.0) % Sodium (137-145) mmol/L Carbon Dioxide (22-30) mmol/L BUN (9-20) mg/dL Creatinine (0.66-1.25) mg/dL POC Glucose (mg/dL) 174 H (75-99) mg/dL Phosphorus (2.5-4.5) mg/dL AST (17-59) U/L Total Protein (6.3-8.2) g/dL - Imaging and Cardiology Chest x-ray: report reviewed, image reviewed Assessment and Plan (1) Paroxysmal atrial fibrillation Current Visit: Yes Status: Acute Code(s): I48.0 - PAROXYSMAL ATRIAL FIBRILLATION SNOMED Code(s): 555161702 (2) Acute kidney injury Current Visit: Yes Status: Acute Code(s): N17.9 - ACUTE KIDNEY FAILURE, UNSPECIFIED SNOMED Code(s): 68876994 (3) History of skin cancer Current Visit: No Status: Resolved Code(s): Z85.828 - PERSONAL HISTORY OF OTHER MALIGNANT NEOPLASM OF SKIN SNOMED Code(s): 505263244 (4) Asthma Current Visit: Yes Status: Acute Code(s): J45.909 - UNSPECIFIED ASTHMA, UNCOMPLICATED SNOMED Code(s): 150820407 (5) COPD (chronic obstructive pulmonary disease) Current Visit: Yes Status: Chronic Code(s): J44.9 - CHRONIC OBSTRUCTIVE PULMONARY DISEASE, UNSPECIFIED SNOMED Code(s): 89665421 (6) Diabetes mellitus type 2 in obese Current Visit: Yes Status: Chronic Code(s): E11.69 - TYPE 2 DIABETES MELLITUS WITH OTHER SPECIFIED COMPLICATION; E66.9 - OBESITY, UNSPECIFIED SNOMED Code(s): 40432165 (7) Enlarged prostate Current Visit: Yes Status: Chronic Code(s): N40.0 - BENIGN PROSTATIC HYPERPLASIA WITHOUT LOWER URINRY TRACT SYMP SNOMED Code(s): 811277464 (8) Hyperlipidemia Current Visit: Yes Status: Chronic Code(s): E78.5 - HYPERLIPIDEMIA, UNSPECIFIED SNOMED Code(s): 22712894 (9) Hypertension Current Visit: Yes Status: Chronic Code(s): I10 - ESSENTIAL (PRIMARY) HYPERTENSION SNOMED Code(s): 74811170 (10) Personal history of nicotine dependence Current Visit: No Status: Resolved Code(s): Z87.891 - PERSONAL HISTORY OF NICOTINE DEPENDENCE SNOMED Code(s): 87504233 (11) Presence of stent in coronary artery in patient with coronary artery disease Current Visit: Yes Status: Chronic Code(s): I25.10 - ATHSCL HEART DISEASE OF [place] CORONARY ARTERY W/O ANG PCTRS; Z95.5 - PRESENCE OF CORONARY ANGIOPLASTY IMPLANT AND GRAFT SNOMED Code(s): 070521103 (12) Severe mitral regurgitation by prior echocardiogram Current Visit: Yes Status: Chronic Code(s): I34.0 - NONRHEUMATIC MITRAL ( VALVE) INSUFFICIENCY SNOMED Code(s): 61770879 Plan: 1. Continue aspirin, statin, Plavix, heparin subcu, Lopressor. Will increase beta lencho therapy as tolerated. 2. Continue amiodarone for A. fib prophylaxis. 3. Discontinue Primacor. Decrease dopamine IV to 2 mcg/kg/min. Continue IV Lasix drip. 4. Wean O2 as tolerated. Encourage incentive spirometry use 10 times every hour while awake. 5. Encourage continued smoking cessation. 6. Increase activity, ambulate as tolerated. PT/OT/cardiac rehab following. 7. Keep Narvaez catheter for 1 more day for strict and secured INR was on Lasix drip. 8. May ground A/V epicardial wires. Likely will discontinue atrial wire and mediastinal chests tube later today. 9. Insulin drip/diabetic management per primary care service. 10. GI/DVT prophylaxis. 11. Will monitor daily labs and chest x-rays. 12. More recommendations as patient progresses. Time with Patient: Greater than 30
[2018-02-02 09:13] LABS: Glucose,Whole Blood 116 mg/dL (75-99)
[2018-02-02] MEDS: METOPROLOL TARTRATE 12.5 MG TAB PO SCH ×2 (09:13→20:36)
[2018-02-02 09:51] LABS: Glucose,Whole Blood 101 mg/dL (75-99)
--- NOTE | 2018-02-02 09:56 | P.PN ---
Subjective Progress Note Date: 02/02/18 HPI: Bird Maria~is a 77 y.o.~male~~being seen examined and evaluated today for consultation. This patient was admitted to the [facility] on 01/21/18-after coming in with complaints of dyspnea with no relief from his inhaler and having significant chest pressure. Patient was found to be in A. fib with RVR and was started on a heparin drip. Patient did have an echocardiogram which revealed an EF of 55% with severe mitral regurg is RVSP P was 53 mmHg. He also had a Karlee scan stress test that was also abnormal and a PATTIE with heart catheter, please see those notes for details. Currently the patient was transfered to [facility] on 01/27/18 for a CABG and mitral valve replacement. Upon examination the patient's resting up in bed on room air. He denies any shortness of breath cough or congestion at this time. He denies any smoking history however did state that he did chew tobacco on occasion. He denies any episodes of snoring however states that his sleep each night is very restless and he wakes up a minimum of 6 times per night. The patient has never had a workup for obstructive sleep apnea. Patient also states that he has had 2 previous surgeries 1 on his knee and shoulders and had no problems with anesthesiology, or waking up from surgery. Education has been provided to the patient on the extent of the surgery as well as education on mechanical ventilation intubation and extubation with possible best case scenario outcomes and worst-case scenario comes. Patient verbalizes understanding. Interval History: 01/29/18- patient is being seen examined and evaluated today on rounds. He is resting up in bed on room air. CT is feeling well. Has been ambulating in the hallway. Has been utilizing his incentive spirometer and pulling volumes of approximately 1750 arousals. He denies any cough or congestion at this time. Patient is planned for a CABG tomorrow with cardiothoracic surgery. Preop workup has been completed. He is afebrile no further complaints. All labs and reports have been reviewed. 01/30/2018: Patient seen and examined in the intensive care unit with nursing staff at bedside. The patient has returned from CABG and valve replacement. The patient is on full ventilator support. Ventilator has been adjusted and ABG reviewed. No current issues per nursing staff. 01/31-02/01/[address] АННА Smith notes 02/02/18- patient is being seen examined and evaluated today in the intensive care unit. Patient has been slightly hypotensive and his Primacor has been weaned off off, dopamine has been decreased as well per cardiothoracic services. He continues on insulin drip per protocol. Urine output has been 50- 60 miles per hour. He continues on 4 L of supplemental oxygen via nasal cannula. Does complain of some shortness of breath with exertion and activity. Denies any cough or congestion. He continues to have chest tubes in place to mediastinal and one left pleural itch chest tube did produce 50-70 miles overnight. Patient has been tolerating his clear liquid diet about 75% this morning. He did not need any BiPAP overnight. He continues to have epicardial pacer in VVI mode. He is afebrile no further complaints. Objective - Vital Signs Vital signs: Vital Signs Temp 98.4 F 02/02/18 08:00 Pulse 97 02/02/18 09:00 Resp 19 02/02/18 09:00 BP 88/51 02/02/18 09:00 Pulse Ox 94 L 02/02/18 09:00 Intake & Output 02/01/18 02/02/18 02/02/18 18:59 06:59 18:59 Intake Total 1785.538 942.764 255.579 Output Total 945 1170 185 Balance 840.538 -227.236 70.579 Weight 111 kg Intake: IV 741 672 98 .9NS Cardiac Output 20 0.9NS Pressure Bags 81 72 18 Furosemide 250 mg In 200 240 20 Sodium Chloride 0.9% 225 ml @ 20 MG/HR 20 mls/hr IVP .[id number] SHAUNA Rx#: [id number] Lactated Ringers 1,000 ml 440 360 60 @ 20 mls/hr IV .Q24H SHAUNA Rx#:[id number] Intake, IV Titration 444.538 270.764 157.579 Amount Clevidipine Butyrate 25 8.533 mg In Empty Bag 1 bag @ 1 MG/HR 2 mls/hr IV .Q24H SHAUNA Rx#:[id number] Furosemide 250 mg In 295.000 201.333 150 Sodium Chloride 0.9% 225 ml @ 20 MG/HR 20 mls/hr IVP .[id number] SHAUNA Rx#: [id number] Insulin Regular 100 unit 91.604 48.357 7.579 In Sodium Chloride 0.9% 100 ml @ Per Protocol IV .Q0M SHAUNA Rx#:[id number] Milrinone-D5w Pmx 20 mg 49.401 21.074 In Dextrose/Water 1 100ml .bag @ 0.2 MCG/KG/MIN 6. 63 mls/hr IV .Q15H5M SHAUNA Rx#:[id number] Oral 600 Output: Chest Tube Drainage [address] X 1 [address] X 2 120 90 0 Urine 715 1030 185 Other: Voiding Method Indwelling Catheter Indwelling Catheter ABP, PAP, CO, CI - Last Documented Arterial Blood Pressure 85/45 Pulmonary Artery Pressure 35/18 Cardiac Output 4.8 Cardiac Index 2.9 - Exam CONSTITUTIONAL: Patient is seen in no acute distress HEENT: Head is normocephalic, atraumatic. Pupils are equal, conjunctiva clear. Neck is supple, trachea is midline. No JVD. RESPIRATORY: ~Lungs clear to auscultation. No wheezes, rales or rhonchi appreciated. Respirations are even and unlabored. Bases diminished bilaterally CARDIOVASCULAR: ~Heart is irregular rate and rhythm. S1 and S2 are heard. No murmur. 2 mediastinal chest tubes and one left pleural chest tube in place GASTROINTESTINAL: ~Abdomen is soft, nontender, nondistended. Bowel sounds are positive. EXTREMITIES: ~No lower extremity edema is noted. Pedal pulses are palpable bilaterally. NEUROLOGICAL: ~Patient is alert and oriented 3. Speech is clear and interactive. No tremor is noted. - Labs CBC & Chem 7: 02/02/18 03:49 02/02/18 03:49 Labs: Abnormal Lab Results - Last 24 Hours (Table) 02/01/18 02/01/18 02/01/18 Range/Units 10:30 11:24 12:07 WBC (3.8-10.6) k/uL RBC (4.30-5.90) m/uL Hgb (13.0-17.5) gm/dL Hct (39.0-53.0) % Sodium (137-145) mmol/L Carbon Dioxide (22-30) mmol/L BUN (9-20) mg/dL Creatinine (0.66-1.25) mg/dL POC Glucose (mg/dL) 138 H 117 H 103 H (75-99) mg/dL Phosphorus (2.5-4.5) mg/dL AST (17-59) U/L Total Protein (6.3-8.2) g/dL 02/01/18 02/01/18 02/01/18 Range/Units 13:07 14:24 15:21 WBC (3.8-10.6) k/uL RBC (4.30-5.90) m/uL Hgb (13.0-17.5) gm/dL Hct (39.0-53.0) % Sodium (137-145) mmol/L Carbon Dioxide (22-30) mmol/L BUN (9-20) mg/dL Creatinine (0.66-1.25) mg/dL POC Glucose (mg/dL) 106 H 135 H 145 H (75-99) mg/dL Phosphorus (2.5-4.5) mg/dL AST (17-59) U/L Total Protein (6.3-8.2) g/dL 02/01/18 02/01/18 02/01/18 Range/Units 16:14 17:33 18:09 WBC (3.8-10.6) k/uL RBC (4.30-5.90) m/uL Hgb (13.0-17.5) gm/dL Hct (39.0-53.0) % Sodium (137-145) mmol/L Carbon Dioxide (22-30) mmol/L BUN (9-20) mg/dL Creatinine (0.66-1.25) mg/dL POC Glucose (mg/dL) 131 H 118 H 108 H (75-99) mg/dL Phosphorus (2.5-4.5) mg/dL AST (17-59) U/L Total Protein (6.3-8.2) g/dL 02/01/18 02/01/18 02/01/18 Range/Units 20:07 21:16 22:00 WBC (3.8-10.6) k/uL RBC (4.30-5.90) m/uL Hgb (13.0-17.5) gm/dL Hct (39.0-53.0) % Sodium (137-145) mmol/L Carbon Dioxide (22-30) mmol/L BUN (9-20) mg/dL Creatinine (0.66-1.25) mg/dL POC Glucose (mg/dL) 118 H 115 H 103 H (75-99) mg/dL Phosphorus (2.5-4.5) mg/dL AST (17-59) U/L Total Protein (6.3-8.2) g/dL 02/01/18 02/01/18 02/02/18 Range/Units 23:06 23:57 01:04 WBC (3.8-10.6) k/uL RBC (4.30-5.90) m/uL Hgb (13.0-17.5) gm/dL Hct (39.0-53.0) % Sodium (137-145) mmol/L Carbon Dioxide (22-30) mmol/L BUN (9-20) mg/dL Creatinine (0.66-1.25) mg/dL POC Glucose (mg/dL) 109 H 135 H 102 H (75-99) mg/dL Phosphorus (2.5-4.5) mg/dL AST (17-59) U/L Total Protein (6.3-8.2) g/dL 02/02/18 02/02/18 02/02/18 Range/Units 02:09 03:03 03:49 WBC (3.8-10.6) k/uL RBC (4.30-5.90) m/uL Hgb (13.0-17.5) gm/dL Hct (39.0-53.0) % Sodium 135 L (137-145) mmol/L Carbon Dioxide 21 L (22-30) mmol/L BUN 49 H (9-20) mg/dL Creatinine 3.06 H (0.66-1.25) mg/dL POC Glucose (mg/dL) 119 H 102 H (75-99) mg/dL Phosphorus 5.7 H (2.5-4.5) mg/dL AST 76 H (17-59) U/L Total Protein 5.8 L (6.3-8.2) g/dL 02/02/18 02/02/18 02/02/18 Range/Units 03:49 04:07 05:13 WBC 19.7 H (3.8-10.6) k/uL RBC 3.24 L (4.30-5.90) m/uL Hgb 9.4 L (13.0-17.5) gm/dL Hct 28.2 L (39.0-53.0) % Sodium (137-145) mmol/L Carbon Dioxide (22-30) mmol/L BUN (9-20) mg/dL Creatinine (0.66-1.25) mg/dL POC Glucose (mg/dL) 104 H 126 H (75-99) mg/dL Phosphorus (2.5-4.5) mg/dL AST (17-59) U/L Total Protein (6.3-8.2) g/dL 02/02/18 02/02/18 02/02/18 Range/Units 06:07 07:02 07:55 WBC (3.8-10.6) k/uL RBC (4.30-5.90) m/uL Hgb (13.0-17.5) gm/dL Hct (39.0-53.0) % Sodium (137-145) mmol/L Carbon Dioxide (22-30) mmol/L BUN (9-20) mg/dL Creatinine (0.66-1.25) mg/dL POC Glucose (mg/dL) 109 H 148 H 174 H (75-99) mg/dL Phosphorus (2.5-4.5) mg/dL AST (17-59) U/L Total Protein (6.3-8.2) g/dL 02/02/18 Range/Units 09:11 WBC (3.8-10.6) k/uL RBC (4.30-5.90) m/uL Hgb (13.0-17.5) gm/dL Hct (39.0-53.0) % Sodium (137-145) mmol/L Carbon Dioxide (22-30) mmol/L BUN (9-20) mg/dL Creatinine (0.66-1.25) mg/dL POC Glucose (mg/dL) 116 H (75-99) mg/dL Phosphorus (2.5-4.5) mg/dL AST (17-59) U/L Total Protein (6.3-8.2) g/dL Assessment and Plan Assessment: Assessment: Chest pain Severe mitral regurgitation, s/p MVR ASCAD, s/p CABG 80-90% stenosis of his right coronary artery 60-70% stenosis of the AV circumflex COPD Possible GHULAM Diabetes mellitus type 2 Hyperlipidemia Plan: s/p CABG Medications have been reviewed and will be continued as ordered. Bedis[place] reviewed from [facility] reviewed, suggestive of restrictive lung disease, however, without lung volumes and full PFT cannot definitively diagnose. Hemodynamics per CVTS Continue to monitor chest tubes Monitor I & O's Outpatient PFT and PSG recommended. Incentive spirometry and pulmonary hygiene. Supplemental oxygen to maintain oxygen saturations greater than 90% if needed. GI and DVT prophylaxis. Patient will also benefit from an outpatient PSG once medically stable and discharged from the hospital. Patient being evaluated for inpatient rehab We will continue to monitor labs/results and adjust treatment as necessary. I performed an examination of the patient and discussed their management with the nurse practitioner. I have reviewed the nurse practitioner's note and agree with the documented findings and plan of care.
--- NOTE | 2018-02-02 10:33 | ECHOF ---
Referral Reason:Assessment LV function. MEASUREMENTS -------- HEIGHT: 182.9 cm WEIGHT: 112.9 kg BP: 118/42 RVIDd: 3.1 cm (< 3.3) IVSd: 1.3 cm (0.6 - 1.1) LVIDd: 4.1 cm (3.9 - 5.3) LVPWd: 1.3 cm (0.6 - 1.1) IVSs: 1.8 cm LVIDs: 3.0 cm LVPWs: 1.5 cm LA Diam: 3.8 cm (2.7 - 3.8) LAESV Index (A-L): 25.15 ml/m Ao Diam: 3.2 cm (2.0 - 3.7) AV Cusp: 2.1 cm (1.5 - 2.6) MV EXCURSION: 18.438 mm (> 18.000) MV EF SLOPE: 49 mm/s (70 - 150) EPSS: 0.7 cm FINDINGS -------- Resting tachycardia (HR>100bpm). This was a technically adequate study. The left ventricular size is normal. There is mild concentric left ventricular hypertrophy. Overa ll left ventricular systolic function is mild-moderately impaired with, an EF between 40 - 45 %. Ba wil inferior LV wall motion is hypokinetic. Basal inferoseptal LV wall motion is hypokinetic. The right ventricle is normal in size. Normal LA size by volume 22+/-6 ml/m2. The right atrium is normal in size. 5 ml of Lumason was utilized for enhancement of images. There is mild aortic valve sclerosis. The mitral valve leaflets are mildly thickened. The peak and mean MV gradients are 10.43mmHg 5.72m mHg as measured by doppler. Mitral ring annulloplasty is in place. MV Repair. The tricuspid valve appears structurally normal. The pulmonic valve was not well visualized. The aortic root size is normal. There is a small, generalized pericardial effusion present. CONCLUSIONS -------- 1. Resting tachycardia (HR>100bpm). 2. This was a technically adequate study. 3. The left ventricular size is normal. 4. There is mild concentric left ventricular hypertrophy. 5. Basal inferior LV wall motion is hypokinetic. 6. Basal inferoseptal LV wall motion is hypokinetic. 7. Normal LA size by volume 22+/-6 ml/m2. 8. 5 ml of Lumason was utilized for enhancement of images. 9. There is mild aortic valve sclerosis. 10. The mitral valve leaflets are mildly thickened. 11. The peak and mean MV gradients are 10.43mmHg 5.72mmHg as measured by doppler. 12. Mitral ring annulloplasty is in place. 13. MV Repair. 14. The pulmonic valve was not well visualized. 15. The aortic root size is normal. 16. There is a small, generalized pericardial effusion present. AEROSPACE MECHANIC: Kina Liu RDCS
[2018-02-02 11:27] LABS: Glucose,Whole Blood 136 mg/dL (75-99)
[2018-02-02] MEDS: INSULIN REGULAR 100 UNIT in SODIUM CHLORIDE 0.9% 100 ML IV SCH (11:27)
--- NOTE | 2018-02-02 11:39 | P.PN ---
Subjective Progress Note Date: 02/02/18 This 77-year-old gentleman is status post bypass surgery and mitral valve replacement. Patient complains of nausea and chest pain related with chest tube. Patient is maintaining sinus rhythm. His blood pressure has been fluctuating requiring IV pressors. Patient is on IV Lasix drip for low urine output. His creatinine has also jumped up to 3.1. Echocardiogram showed an ejection fraction of 40-45% with minimal pericardial effusion. It appears that patient is alert. Acute renal failure. Nephrology consult was initiated. We' ll continue with current management Objective - Vital Signs Vital signs: Vital Signs Temp 98.4 F 02/02/18 08:00 Pulse 84 02/02/18 11:36 Resp 14 02/02/18 11:00 BP 82/47 02/02/18 11:00 Pulse Ox 94 L 02/02/18 11:00 Intake & Output 02/01/18 02/02/18 02/02/18 18:59 06:59 18:59 Intake Total 1785.538 942.764 337.152 Output Total 945 1170 300 Balance 840.538 -227.236 37.152 Weight 111 kg Intake: IV 741 672 170 .9NS Cardiac Output 20 0.9NS Pressure Bags 81 72 30 Furosemide 250 mg In 200 240 20 Sodium Chloride 0.9% 225 ml @ 20 MG/HR 20 mls/hr IVP .[id number] [facility] Rx#: [id number] Lactated Ringers 1,000 ml 440 360 120 @ 20 mls/hr IV .Q24H [facility] Rx#:[id number] Intake, IV Titration 444.538 270.764 167.152 Amount Clevidipine Butyrate 25 8.533 mg In Empty Bag 1 bag @ 1 MG/HR 2 mls/hr IV .Q24H [facility] Rx#:[id number] Furosemide 250 mg In 295.000 201.333 150 Sodium Chloride 0.9% 225 ml @ 20 MG/HR 20 mls/hr IVP .[id number] [facility] Rx#: [id number] Insulin Regular 100 unit 91.604 48.357 17.152 In Sodium Chloride 0.9% 100 ml @ Per Protocol IV .Q0M [facility] Rx#:[id number] Milrinone-D5w Pmx 20 mg 49.401 21.074 In Dextrose/Water 1 100ml .bag @ 0.2 MCG/KG/MIN 6. 63 mls/hr IV .Q15H5M [facility] Rx#:[id number] Oral 600 Output: Chest Tube Drainage 230 [address] X 1 [address] X 2 120 90 10 Urine 715 1030 250 Other: Voiding Method Indwelling Catheter Indwelling Catheter ABP, PAP, CO, CI - Last Documented Arterial Blood Pressure 102/50 Pulmonary Artery Pressure 35/18 Cardiac Output 4.8 Cardiac Index 2.9 - Exam GENERAL EXAM: Patient is alert and oriented and in mild distress HEENT: Normocephalic. Normal reaction of pupils, equal size, normal range of extraocular motion. No erythema or exudates in the throat. NECK: No masses, no nuchal rigidity. CHEST: Postsurgical. LUNGS: Diminished breath sounds at bases HEART: Distant heart sounds ABDOMEN: Deferred SKIN: No rashes CENTRAL NERVOUS SYSTEM: No focal deficits. EXTREMITIES: No cyanosis, clubbing or edema. - Labs CBC & Chem 7: 02/02/18 03:49 02/02/18 03:49 Labs: Abnormal Lab Results - Last 24 Hours (Table) 02/01/18 02/01/18 02/01/18 Range/Units 12:07 13:07 14:24 WBC (3.8-10.6) k/uL RBC (4.30-5.90) m/uL Hgb (13.0-17.5) gm/dL Hct (39.0-53.0) % Sodium (137-145) mmol/L Carbon Dioxide (22-30) mmol/L BUN (9-20) mg/dL Creatinine (0.66-1.25) mg/dL POC Glucose (mg/dL) 103 H 106 H 135 H (75-99) mg/dL Phosphorus (2.5-4.5) mg/dL AST (17-59) U/L Total Protein (6.3-8.2) g/dL 02/01/18 02/01/18 02/01/18 Range/Units 15:21 16:14 17:33 WBC (3.8-10.6) k/uL RBC (4.30-5.90) m/uL Hgb (13.0-17.5) gm/dL Hct (39.0-53.0) % Sodium (137-145) mmol/L Carbon Dioxide (22-30) mmol/L BUN (9-20) mg/dL Creatinine (0.66-1.25) mg/dL POC Glucose (mg/dL) 145 H 131 H 118 H (75-99) mg/dL Phosphorus (2.5-4.5) mg/dL AST (17-59) U/L Total Protein (6.3-8.2) g/dL 02/01/18 02/01/18 02/01/18 Range/Units 18:09 20:07 21:16 WBC (3.8-10.6) k/uL RBC (4.30-5.90) m/uL Hgb (13.0-17.5) gm/dL Hct (39.0-53.0) % Sodium (137-145) mmol/L Carbon Dioxide (22-30) mmol/L BUN (9-20) mg/dL Creatinine (0.66-1.25) mg/dL POC Glucose (mg/dL) 108 H 118 H 115 H (75-99) mg/dL Phosphorus (2.5-4.5) mg/dL AST (17-59) U/L Total Protein (6.3-8.2) g/dL 02/01/18 02/01/18 02/01/18 Range/Units 22:00 23:06 23:57 WBC (3.8-10.6) k/uL RBC (4.30-5.90) m/uL Hgb (13.0-17.5) gm/dL Hct (39.0-53.0) % Sodium (137-145) mmol/L Carbon Dioxide (22-30) mmol/L BUN (9-20) mg/dL Creatinine (0.66-1.25) mg/dL POC Glucose (mg/dL) 103 H 109 H 135 H (75-99) mg/dL Phosphorus (2.5-4.5) mg/dL AST (17-59) U/L Total Protein (6.3-8.2) g/dL 02/02/18 02/02/18 02/02/18 Range/Units 01:04 02:09 03:03 WBC (3.8-10.6) k/uL RBC (4.30-5.90) m/uL Hgb (13.0-17.5) gm/dL Hct (39.0-53.0) % Sodium (137-145) mmol/L Carbon Dioxide (22-30) mmol/L BUN (9-20) mg/dL Creatinine (0.66-1.25) mg/dL POC Glucose (mg/dL) 102 H 119 H 102 H (75-99) mg/dL Phosphorus (2.5-4.5) mg/dL AST (17-59) U/L Total Protein (6.3-8.2) g/dL 02/02/18 02/02/18 02/02/18 Range/Units 03:49 03:49 04:07 WBC 19.7 H (3.8-10.6) k/uL RBC 3.24 L (4.30-5.90) m/uL Hgb 9.4 L (13.0-17.5) gm/dL Hct 28.2 L (39.0-53.0) % Sodium 135 L (137-145) mmol/L Carbon Dioxide 21 L (22-30) mmol/L BUN 49 H (9-20) mg/dL Creatinine 3.06 H (0.66-1.25) mg/dL POC Glucose (mg/dL) 104 H (75-99) mg/dL Phosphorus 5.7 H (2.5-4.5) mg/dL AST 76 H (17-59) U/L Total Protein 5.8 L (6.3-8.2) g/dL 02/02/18 02/02/18 02/02/18 Range/Units 05:13 06:07 07:02 WBC (3.8-10.6) k/uL RBC (4.30-5.90) m/uL Hgb (13.0-17.5) gm/dL Hct (39.0-53.0) % Sodium (137-145) mmol/L Carbon Dioxide (22-30) mmol/L BUN (9-20) mg/dL Creatinine (0.66-1.25) mg/dL POC Glucose (mg/dL) 126 H 109 H 148 H (75-99) mg/dL Phosphorus (2.5-4.5) mg/dL AST (17-59) U/L Total Protein (6.3-8.2) g/dL 02/02/18 02/02/18 02/02/18 Range/Units 07:55 09:11 09:47 WBC (3.8-10.6) k/uL RBC (4.30-5.90) m/uL Hgb (13.0-17.5) gm/dL Hct (39.0-53.0) % Sodium (137-145) mmol/L Carbon Dioxide (22-30) mmol/L BUN (9-20) mg/dL Creatinine (0.66-1.25) mg/dL POC Glucose (mg/dL) 174 H 116 H 101 H (75-99) mg/dL Phosphorus (2.5-4.5) mg/dL AST (17-59) U/L Total Protein (6.3-8.2) g/dL 02/02/18 Range/Units 11:26 WBC (3.8-10.6) k/uL RBC (4.30-5.90) m/uL Hgb (13.0-17.5) gm/dL Hct (39.0-53.0) % Sodium (137-145) mmol/L Carbon Dioxide (22-30) mmol/L BUN (9-20) mg/dL Creatinine (0.66-1.25) mg/dL POC Glucose (mg/dL) 136 H (75-99) mg/dL Phosphorus (2.5-4.5) mg/dL AST (17-59) U/L Total Protein (6.3-8.2) g/dL Assessment and Plan (1) H/O coronary artery bypass surgery Current Visit: Yes Status: Acute Code(s): Z95.1 - PRESENCE OF AORTOCORONARY BYPASS GRAFT SNOMED Code(s): 403735620 (2) History of mitral valve repair Current Visit: Yes Status: Acute Code(s): Z98.890 - OTHER SPECIFIED POSTPROCEDURAL STATES SNOMED Code(s): 283681416 (3) COPD (chronic obstructive pulmonary disease) Current Visit: Yes Status: Chronic Code(s): J44.9 - CHRONIC OBSTRUCTIVE PULMONARY DISEASE, UNSPECIFIED SNOMED Code(s): 29737629 (4) Diabetes mellitus type 2 in obese Current Visit: Yes Status: Chronic Code(s): E11.69 - TYPE 2 DIABETES MELLITUS WITH OTHER SPECIFIED COMPLICATION; E66.9 - OBESITY, UNSPECIFIED SNOMED Code(s): 43452113 (5) Hyperlipidemia Current Visit: Yes Status: Chronic Code(s): E78.5 - HYPERLIPIDEMIA, UNSPECIFIED SNOMED Code(s): 46577436 (6) Acute kidney injury Current Visit: Yes Status: Acute Code(s): N17.9 - ACUTE KIDNEY FAILURE, UNSPECIFIED SNOMED Code(s): 52462319 Plan: Continue IV pressors and IV Lasix drip. Patient is also on beta lencho. Nephrology consult is pending. Further recommendations depend upon clinical course
[2018-02-02 12:03] LABS: Glucose,Whole Blood 129 mg/dL (75-99)
[2018-02-02 13:14] LABS: Glucose,Whole Blood 128 mg/dL (75-99)
[2018-02-02 14:03] LABS: Glucose,Whole Blood 105 mg/dL (75-99)
[2018-02-02] MEDS: DEXTROSE/WATER 1 500ML.BAG with DOPamine DRIP 800 MG IV SCH (14:20)
--- NOTE | 2018-02-02 14:55 | P.PN ---
Subjective Progress Note Date: 02/02/18 This is a 69 HO pleasant gentleman patient of Dr. Cardoso with underlying history of CAD with prior PCI stent placement, hypertension hypertensive cardiovascular disease hyperlipidemia and diabetes mellitus type 2 asthma OR arthritis COPD admitted to [facility] and was found on imaging studies secondary to his chest pain new onset atrial fibrillation with RVR and shortness of breath, cardiac cath performed 01/26/2018 showing 80% stenosis of RCA, 70% stenoses of the left circumflex involving the AV groove circumflex ostial portion, severe mitral regurgitation, dilated left ventricle ejection fraction 50-55%. He was transferred to [facility] for mitral valve placement and CABG 2 vessel critical stenosis involving left circumflex and right coronary artery. CABG most likely would be anticipated to be done January 30 He was seen at [facility] by , for pulmonary clearance, pertinent laboratories creatinine 1.01 hemoglobin 12.4 TSH 0.93 hemoglobin A1c not done,. Patient currently is on basal bolus Levemir and premeal coverage, instead of home oral medication, continue on Januvia 100 mg at bedtime, cardiology to see, Dr. Marte for consult and consult to Dr. Spicer cardiothoracic, Dr. Salas cardiology. He should maintain IV heparin 01/29: Patient is followed by Dr. Marte and Dr. VC Fry. Patient is scheduled for coronary artery bypass surgery and mitral valve replacement or repair on Friday. Blood sugars are running 156-193. Additional 2units of Novolog added premeal until surgery. Patient states his blood sugars are usually 100-130 at home. 01/30: Patient is going for surgery. 01/31 Patient is postoperative day 1 with mitral valve repair, coronary artery bypass grafting X2. Patient examined bed side. Appears tired. Complains of shortness of breath intermittently. Currently on 2 L of oxygen. Blood pressure continues to drop to systolic in low 80. Initiated on norepinephrine added low -dose. Chest x-ray suggested worsening vascular congestion and pleural effusion. Received 1 dose 80 mg IV Lasix today [place]Man[place] catheter removed today. Patient is extubated since this morning. 02/01 Patient has increased cough and congestion, on 6 L nasal cannula. CXR concerning for cngestion and pleural effusion. on lasix drip. Lantus increased to 15 units bedtime to decrease insulin requirement. Continue trodjenta 5 mg po daily while in hospital. COntinue insulin drip, plan to switich to sliding scale if not much requirement on drip. Continue metoprolol 25 mg op BID 02/02: Patient has been evaluated by Dr. Diego and may be a candidate for inpatient. Primacor has been discontinued. Patient is currently on dopamine, insulin drip and Lasix drip. Epicardial wires and chest tube out today. Blood sugars are running between 101 and 174. White count has jumped to 19.7 and renal function is worsening with BUN 49 creatinine 3.06. The patient states he did eat his breakfast this morning. Objective - Vital Signs Vital signs: Vital Signs Temp 98.4 F 02/02/18 08:00 Pulse 97 02/02/18 09:00 Resp 19 02/02/18 09:00 BP 88/51 02/02/18 09:00 Pulse Ox 94 L 02/02/18 09:00 Intake & Output 02/01/18 02/02/18 02/02/18 18:59 06:59 18:59 Intake Total 1785.538 942.764 255.579 Output Total 945 1170 185 Balance 840.538 -227.236 70.579 Weight 111 kg Intake: IV 741 672 98 .9NS Cardiac Output 20 0.9NS Pressure Bags 81 72 18 Furosemide 250 mg In 200 240 20 Sodium Chloride 0.9% 225 ml @ 20 MG/HR 20 mls/hr IVP .[id number] [facility] Rx#: [id number] Lactated Ringers 1,000 ml 440 360 60 @ 20 mls/hr IV .Q24H [facility] Rx#:[id number] Intake, IV Titration 444.538 270.764 157.579 Amount Clevidipine Butyrate 25 8.533 mg In Empty Bag 1 bag @ 1 MG/HR 2 mls/hr IV .Q24H [facility] Rx#:[id number] Furosemide 250 mg In 295.000 201.333 150 Sodium Chloride 0.9% 225 ml @ 20 MG/HR 20 mls/hr IVP .[id number] [facility] Rx#: [id number] Insulin Regular 100 unit 91.604 48.357 7.579 In Sodium Chloride 0.9% 100 ml @ Per Protocol IV .Q0M [facility] Rx#:[id number] Milrinone-D5w Pmx 20 mg 49.401 21.074 In Dextrose/Water 1 100ml .bag @ 0.2 MCG/KG/MIN 6. 63 mls/hr IV .Q15H5M [facility] Rx#:[id number] Oral 600 Output: Chest Tube Drainage [address] X 1 [address] X 2 120 90 0 Urine 715 1030 185 Other: Voiding Method Indwelling Catheter Indwelling Catheter ABP, PAP, CO, CI - Last Documented Arterial Blood Pressure 85/45 Pulmonary Artery Pressure 35/18 Cardiac Output 4.8 Cardiac Index 2.9 - Exam General appearance: cooperative, no acute distress,appear sleepy - EENT Eyes: anicteric sclerae, EOMI, PERRLA, dentition normal, normal appearance ENT: NA/AT, normal oropharynx - Neck Neck: no lymphadenopathy, normal ROM, no other, no rigidity, no stridor, no thyromegaly - Respiratory Respiratory: bilateral: diminished rales, rhonchi at bases,Mediastinal and left pleural chest tubes in place to low continuous wall suction. - Cardiovascular Rhythm: regular Heart sounds: normal: S1, S2 Abnormal Heart Sounds: no systolic murmur, no diastolic murmur, no rub, no S3 Gallop, no S4 Gallop, no click, no other - Gastrointestinal General gastrointestinal: normal bowel sounds, soft - Integumentary Integumentary: normal, normal turgor - Neurologic Neurologic: CNII-XII intact - Musculoskeletal Musculoskeletal: strength equal bilaterally - Psychiatric Psychiatric: A&O x's 3, appropriate affect, intact judgment & insight - Labs CBC & Chem 7: 02/02/18 03:49 02/02/18 03:49 Labs: Abnormal Lab Results - Last 24 Hours (Table) 02/01/18 02/01/18 02/01/18 Range/Units 10:30 11:24 12:07 WBC (3.8-10.6) k/uL RBC (4.30-5.90) m/uL Hgb (13.0-17.5) gm/dL Hct (39.0-53.0) % Sodium (137-145) mmol/L Carbon Dioxide (22-30) mmol/L BUN (9-20) mg/dL Creatinine (0.66-1.25) mg/dL POC Glucose (mg/dL) 138 H 117 H 103 H (75-99) mg/dL Phosphorus (2.5-4.5) mg/dL AST (17-59) U/L Total Protein (6.3-8.2) g/dL 02/01/18 02/01/18 02/01/18 Range/Units 13:07 14:24 15:21 WBC (3.8-10.6) k/uL RBC (4.30-5.90) m/uL Hgb (13.0-17.5) gm/dL Hct (39.0-53.0) % Sodium (137-145) mmol/L Carbon Dioxide (22-30) mmol/L BUN (9-20) mg/dL Creatinine (0.66-1.25) mg/dL POC Glucose (mg/dL) 106 H 135 H 145 H (75-99) mg/dL Phosphorus (2.5-4.5) mg/dL AST (17-59) U/L Total Protein (6.3-8.2) g/dL 02/01/18 02/01/18 02/01/18 Range/Units 16:14 17:33 18:09 WBC (3.8-10.6) k/uL RBC (4.30-5.90) m/uL Hgb (13.0-17.5) gm/dL Hct (39.0-53.0) % Sodium (137-145) mmol/L Carbon Dioxide (22-30) mmol/L BUN (9-20) mg/dL Creatinine (0.66-1.25) mg/dL POC Glucose (mg/dL) 131 H 118 H 108 H (75-99) mg/dL Phosphorus (2.5-4.5) mg/dL AST (17-59) U/L Total Protein (6.3-8.2) g/dL 02/01/18 02/01/18 02/01/18 Range/Units 20:07 21:16 22:00 WBC (3.8-10.6) k/uL RBC (4.30-5.90) m/uL Hgb (13.0-17.5) gm/dL Hct (39.0-53.0) % Sodium (137-145) mmol/L Carbon Dioxide (22-30) mmol/L BUN (9-20) mg/dL Creatinine (0.66-1.25) mg/dL POC Glucose (mg/dL) 118 H 115 H 103 H (75-99) mg/dL Phosphorus (2.5-4.5) mg/dL AST (17-59) U/L Total Protein (6.3-8.2) g/dL 02/01/18 02/01/18 02/02/18 Range/Units 23:06 23:57 01:04 WBC (3.8-10.6) k/uL RBC (4.30-5.90) m/uL Hgb (13.0-17.5) gm/dL Hct (39.0-53.0) % Sodium (137-145) mmol/L Carbon Dioxide (22-30) mmol/L BUN (9-20) mg/dL Creatinine (0.66-1.25) mg/dL POC Glucose (mg/dL) 109 H 135 H 102 H (75-99) mg/dL Phosphorus (2.5-4.5) mg/dL AST (17-59) U/L Total Protein (6.3-8.2) g/dL 02/02/18 02/02/18 02/02/18 Range/Units 02:09 03:03 03:49 WBC (3.8-10.6) k/uL RBC (4.30-5.90) m/uL Hgb (13.0-17.5) gm/dL Hct (39.0-53.0) % Sodium 135 L (137-145) mmol/L Carbon Dioxide 21 L (22-30) mmol/L BUN 49 H (9-20) mg/dL Creatinine 3.06 H (0.66-1.25) mg/dL POC Glucose (mg/dL) 119 H 102 H (75-99) mg/dL Phosphorus 5.7 H (2.5-4.5) mg/dL AST 76 H (17-59) U/L Total Protein 5.8 L (6.3-8.2) g/dL 02/02/18 02/02/18 02/02/18 Range/Units 03:49 04:07 05:13 WBC 19.7 H (3.8-10.6) k/uL RBC 3.24 L (4.30-5.90) m/uL Hgb 9.4 L (13.0-17.5) gm/dL Hct 28.2 L (39.0-53.0) % Sodium (137-145) mmol/L Carbon Dioxide (22-30) mmol/L BUN (9-20) mg/dL Creatinine (0.66-1.25) mg/dL POC Glucose (mg/dL) 104 H 126 H (75-99) mg/dL Phosphorus (2.5-4.5) mg/dL AST (17-59) U/L Total Protein (6.3-8.2) g/dL 02/02/18 02/02/18 02/02/18 Range/Units 06:07 07:02 07:55 WBC (3.8-10.6) k/uL RBC (4.30-5.90) m/uL Hgb (13.0-17.5) gm/dL Hct (39.0-53.0) % Sodium (137-145) mmol/L Carbon Dioxide (22-30) mmol/L BUN (9-20) mg/dL Creatinine (0.66-1.25) mg/dL POC Glucose (mg/dL) 109 H 148 H 174 H (75-99) mg/dL Phosphorus (2.5-4.5) mg/dL AST (17-59) U/L Total Protein (6.3-8.2) g/dL 02/02/18 02/02/18 Range/Units 09:11 09:47 WBC (3.8-10.6) k/uL RBC (4.30-5.90) m/uL Hgb (13.0-17.5) gm/dL Hct (39.0-53.0) % Sodium (137-145) mmol/L Carbon Dioxide (22-30) mmol/L BUN (9-20) mg/dL Creatinine (0.66-1.25) mg/dL POC Glucose (mg/dL) 116 H 101 H (75-99) mg/dL Phosphorus (2.5-4.5) mg/dL AST (17-59) U/L Total Protein (6.3-8.2) g/dL Assessment and Plan Plan: 1. Severe mitral regurgitation and CAD with 2 vessel critical stenosis s/p CABG , and mitral valve repair, Dr. Spicer from cardiovascular surgery. Cardiology is following. Dr. Vides is covering for intensive care management. extubated. Continue Plavix 75 mg daily, aspirin 325 mg daily, Lipitor 40 mg daily. 2. Diabetes mellitus type 2 previous oral medications have been discontinued mainly Glucotrol and metformin, continue tradjenta, Levemir at 15 units every at bedtime, and insulin drip until diet has been optimized postop 3. New onset atrial fibrillation, paroxysmal, currently on oral amiodarone and metoprolol tartrate 12.5 mg twice daily 4. Acute kidney injury with CKD stage II with baseline creatinine 1.01, continue to monitor. 5. CAD with previous PCI and stent placement with recent cardiac cath [address] Reynolds found to have 60-70% stenosis involving left circumflex AV groove circumflex ostial portion, and RCA 80% stenosis mid RCA, EF 50-55% left ventricle end-diastolic pressure 14 severe mitral regurgitation. 6. BPH without urinary tract symptomatology. Continue Flomax or 0.8 mg at bedtime daily. Monitor for urinary retention. 7. Mild intermittent asthma without any current exacerbation with COPD and when necessary nebulizer, incentive spirometry, 8. Hypertensive cardiovascular disease. Patient on Lopressor. 9. History of skin cancer 10. Osteoarthritis, generalized. 11. Hyperlipidemia on Lipitor 40 mg daily GI prophylaxis DVT prophylaxis Discharge plan: Inpatient rehab Impression and plan of care have been directed as dictated by the signing physician. Zoya Lenz nurse practitioner acting as scribe for signing physician.
[2018-02-02 15:11] LABS: Glucose,Whole Blood 141 mg/dL (75-99)
[2018-02-02] MEDS ORDERED: ALBUMIN HUMAN 25% 50 ML in EMPTY BAG 1 BAG IVPB ONE (15:30)
[2018-02-02 16:14] LABS: Glucose,Whole Blood 137 mg/dL (75-99)
[2018-02-02] MEDS: LACTATED RINGERS 1,000 ML IV SCH (16:37)
[2018-02-02 17:14] LABS: Glucose,Whole Blood 107 mg/dL (75-99)
[2018-02-02] MEDS ORDERED: CALCIUM CHLORIDE 1,000 MG in SODIUM CHLORIDE 0.9% 100 ML IVPB STA (17:14)
[2018-02-02] MEDS: ONDANSETRON 4 MG/2 ML VIAL IVP PRN (17:47)
[2018-02-02 18:23] LABS: Glucose,Whole Blood 105 mg/dL (75-99)
[2018-02-02 18:57] LABS: Glucose,Whole Blood 116 mg/dL (75-99)
[2018-02-02 19:48] LABS: Glucose,Whole Blood 146 mg/dL (75-99)
[2018-02-02] MEDS: LINAGLIPTIN 5 MG TABLET PO SCH (20:36)
[2018-02-02] MEDS: SENNOSIDES-DOCUSATE SODIUM 1 EACH TAB PO SCH (20:37)
[2018-02-02] MEDS: INSULIN DETEMIR 100 UNIT/ML 10 ML VIAL SQ SCH (20:37)
[2018-02-02 21:09] LABS: Glucose,Whole Blood 105 mg/dL (75-99)
[2018-02-02 22:03] LABS: Glucose,Whole Blood 85 mg/dL (75-99)
[2018-02-02 23:13] LABS: Glucose,Whole Blood 80 mg/dL (75-99)
[2018-02-03 00:03] LABS: Glucose,Whole Blood 109 mg/dL (75-99)
[2018-02-03 01:05] LABS: Glucose,Whole Blood 105 mg/dL (75-99)
[2018-02-03 02:04] LABS: Glucose,Whole Blood 123 mg/dL (75-99)
[2018-02-03 03:06] LABS: Glucose,Whole Blood 110 mg/dL (75-99)
[2018-02-03 04:03] LABS: Glucose,Whole Blood 100 mg/dL (75-99)
[2018-02-03 05:10] LABS: Glucose,Whole Blood 105 mg/dL (75-99)
[2018-02-03 05:20] LABS: HCT 28.6 % (39.0-53.0); HGB 9.6 gm/dL (13.0-17.5); MCH 29.1 pg (25.0-35.0); MCHC 33.6 g/dL (31.0-37.0); MCV 86.6 fL (80.0-100.0); Mean Platelet Volume 8.2; Platelet Count 201 k/uL (150-450); RBC 3.31 m/uL (4.30-5.90); RDW 14.7 % (11.5-15.5); WBC 16.2 k/uL (3.8-10.6)
[2018-02-03 05:30] LABS: Albumin 3.6 g/dL (3.5-5.0); Calcium 8.8 mg/dL (8.4-10.2); Magnesium 2.3 mg/dL (1.6-2.3); Phosphorus 6.8 mg/dL (2.5-4.5); Potassium 4.4 mmol/L (3.5-5.1); Total Bilirubin 1.3 mg/dL (0.2-1.3); Total Protein 5.9 g/dL (6.3-8.2)
[2018-02-03 07:18] LABS: Glucose,Whole Blood 156 mg/dL (75-99)
[2018-02-03] MEDS ORDERED: HYDROcodone/APAP 7.5-325MG 1 EACH TAB PO PRN (07:24)
--- NOTE | 2018-02-03 07:33 | P.PN ---
Subjective Progress Note Date: 02/03/18 Principal diagnosis: Severe mitral regurgitation. 2 vessel coronary artery disease. New onset preoperative paroxysmal atrial fibrillation. 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 POD #4 urgent mitral valve repair with a #30 mm [employer] annular flex band. Clip ligation of the left atrial appendage with a #35 mm AtriClip. Coronary bypass grafting 2 with reverse saphenous vein graft off the aorta to the circumflex artery and the right coronary artery. Endoscopic harvesting of the right greater saphenous vein. Complete left-sided maze procedure using radiofrequency ablation as well as cryoablation. Intraoperative transesophageal echocardiogram. Postoperative acute kidney injury, an unexpected but potential outcome of surgery secondary to hemodynamic instability. The patient is currently sitting up in a recliner in no acute distress. States he has no chest pain except when coughing, patient trying not to cough, denies shortness of breath. Remains on IV Lasix, dopamine. Objective - Vital Signs Vital signs: Vital Signs Temp 98.1 F 02/03/18 04:00 Pulse 88 02/03/18 06:00 Resp 23 02/03/18 06:00 BP 117/65 02/03/18 06:00 Pulse Ox 97 02/03/18 06:00 Intake & Output 02/02/18 02/03/18 02/03/18 18:59 06:59 18:59 Intake Total 875.379 726.560 Output Total 630 2175 Balance 245.379 -1448.440 Weight 111 kg 111.9 kg Intake: IV 452 708 0.9NS Pressure Bags 72 78 Furosemide 250 mg In 20 240 Sodium Chloride 0.9% 225 ml @ 20 MG/HR 20 mls/hr IVP .[id number] [facility] Rx#: [id number] Lactated Ringers 1,000 ml 360 390 @ 20 mls/hr IV .Q24H [facility] Rx#:[id number] Intake, IV Titration 423.379 18.560 Amount Albumin Human 25% 50 ml 50 In Empty Bag 1 bag @ 100 mls/hr IVPB ONCE ONE Rx#: [id number] Calcium Chloride 1,000 mg 100 In Sodium Chloride 0.9% 100 ml @ 100 mls/hr IVPB ONCE STA Rx#:[id number] Furosemide 250 mg In 222.167 Sodium Chloride 0.9% 225 ml @ 20 MG/HR 20 mls/hr IVP .[id number] [facility] Rx#: [id number] Insulin Regular 100 unit 51.212 18.560 In Sodium Chloride 0.9% 100 ml @ Per Protocol IV .Q0M [facility] Rx#:[id number] Output: Chest Tube Drainage [address] X [address] X 2 10 Urine 570 2075 Other: Voiding Method Indwelling Catheter Indwelling Catheter ABP, PAP, CO, CI - Last Documented Arterial Blood Pressure 133/63 Pulmonary Artery Pressure 35/18 Cardiac Output 4.8 Cardiac Index 2.9 - Constitutional General appearance: Present: cooperative, no acute distress - Respiratory Details: Lungs sounds diminished bilaterally. Respirations even, nonlabored. Currently on 3 L nasal cannula with oxygen saturation 95%. Able to achieve 1000 mL on his incentive spirometry. Weak cough. Left pleural chest tube to continuous wall suction, 70 mL serosanguineous drainage overnight, 150 mL in the last 24 hours. No air leaks present. - Cardiovascular Details: S1, S2 present. Regular rate and rhythm, sinus rhythm with first-degree AV block on telemetry. V epicardial pacemaker wires present, grounded. Sternum stable. Palpable peripheral pulses bilaterally. No edema present. No calf pain or tenderness noted. Right internal jugular Cordis, right radial arterial line present. Antiembolism stockings, SCDs present. Heart hugger in place with patient demonstrating appropriate use. - Gastrointestinal Gastrointestinal Comment(s): Abdomen soft, nontender, nondistended. Active bowel sounds present 4 quadrants. Tolerating diet. Positive flatus, negative BM. - Genitourinary Genitourinary Comment(s): Narvaez catheter present draining clear, yellow urine. Output overnight was 80- 250 mL per hour. Currently on Lasix IV continuous drip. - Integumentary Integumentary Comment(s): Skin is warm and dry with evidence of good perfusion. Anterior chest incision well approximated and covered with dry intact dressing. Right lower extremity EVH site well approximated. - Neurologic Neurologic: Present: CNII-XII intact - Musculoskeletal Musculoskeletal: Present: gait normal, generalized weakness - Psychiatric Psychiatric: Present: A&O x's 3, appropriate affect, intact judgment & insight - Allied health notes Allied health notes reviewed: nursing - Labs CBC & Chem 7: 02/03/18 05:15 02/03/18 05:15 Labs: Abnormal Lab Results - Last 24 Hours (Table) 02/02/18 02/02/18 02/02/18 Range/Units 07:55 09:11 09:47 WBC (3.8-10.6) k/uL RBC (4.30-5.90) m/uL Hgb (13.0-17.5) gm/dL Hct (39.0-53.0) % Sodium (137-145) mmol/L Chloride (98-107) mmol/L Carbon Dioxide (22-30) mmol/L BUN (9-20) mg/dL Creatinine (0.66-1.25) mg/dL POC Glucose (mg/dL) 174 H 116 H 101 H (75-99) mg/dL Phosphorus (2.5-4.5) mg/dL AST (17-59) U/L Total Protein (6.3-8.2) g/dL 02/02/18 02/02/18 02/02/18 Range/Units 11:26 12:01 13:12 WBC (3.8-10.6) k/uL RBC (4.30-5.90) m/uL Hgb (13.0-17.5) gm/dL Hct (39.0-53.0) % Sodium (137-145) mmol/L Chloride (98-107) mmol/L Carbon Dioxide (22-30) mmol/L BUN (9-20) mg/dL Creatinine (0.66-1.25) mg/dL POC Glucose (mg/dL) 136 H 129 H 128 H (75-99) mg/dL Phosphorus (2.5-4.5) mg/dL AST (17-59) U/L Total Protein (6.3-8.2) g/dL 02/02/18 02/02/18 02/02/18 Range/Units 14:01 15:10 16:11 WBC (3.8-10.6) k/uL RBC (4.30-5.90) m/uL Hgb (13.0-17.5) gm/dL Hct (39.0-53.0) % Sodium (137-145) mmol/L Chloride (98-107) mmol/L Carbon Dioxide (22-30) mmol/L BUN (9-20) mg/dL Creatinine (0.66-1.25) mg/dL POC Glucose (mg/dL) 105 H 141 H 137 H (75-99) mg/dL Phosphorus (2.5-4.5) mg/dL AST (17-59) U/L Total Protein (6.3-8.2) g/dL 02/02/18 02/02/18 02/02/18 Range/Units 17:12 18:19 18:55 WBC (3.8-10.6) k/uL RBC (4.30-5.90) m/uL Hgb (13.0-17.5) gm/dL Hct (39.0-53.0) % Sodium (137-145) mmol/L Chloride (98-107) mmol/L Carbon Dioxide (22-30) mmol/L BUN (9-20) mg/dL Creatinine (0.66-1.25) mg/dL POC Glucose (mg/dL) 107 H 105 H 116 H (75-99) mg/dL Phosphorus (2.5-4.5) mg/dL AST (17-59) U/L Total Protein (6.3-8.2) g/dL 02/02/18 02/02/18 02/03/18 Range/Units 19:47 21:07 00:03 WBC (3.8-10.6) k/uL RBC (4.30-5.90) m/uL Hgb (13.0-17.5) gm/dL Hct (39.0-53.0) % Sodium (137-145) mmol/L Chloride (98-107) mmol/L Carbon Dioxide (22-30) mmol/L BUN (9-20) mg/dL Creatinine (0.66-1.25) mg/dL POC Glucose (mg/dL) 146 H 105 H 109 H (75-99) mg/dL Phosphorus (2.5-4.5) mg/dL AST (17-59) U/L Total Protein (6.3-8.2) g/dL 02/03/18 02/03/18 02/03/18 Range/Units 01:04 02:02 03:05 WBC (3.8-10.6) k/uL RBC (4.30-5.90) m/uL Hgb (13.0-17.5) gm/dL Hct (39.0-53.0) % Sodium (137-145) mmol/L Chloride (98-107) mmol/L Carbon Dioxide (22-30) mmol/L BUN (9-20) mg/dL Creatinine (0.66-1.25) mg/dL POC Glucose (mg/dL) 105 H 123 H 110 H (75-99) mg/dL Phosphorus (2.5-4.5) mg/dL AST (17-59) U/L Total Protein (6.3-8.2) g/dL 02/03/18 02/03/18 02/03/18 Range/Units 04:02 05:09 05:15 WBC 16.2 H (3.8-10.6) k/uL RBC 3.31 L (4.30-5.90) m/uL Hgb 9.6 L (13.0-17.5) gm/dL Hct 28.6 L (39.0-53.0) % Sodium (137-145) mmol/L Chloride (98-107) mmol/L Carbon Dioxide (22-30) mmol/L BUN (9-20) mg/dL Creatinine (0.66-1.25) mg/dL POC Glucose (mg/dL) 100 H 105 H (75-99) mg/dL Phosphorus (2.5-4.5) mg/dL AST (17-59) U/L Total Protein (6.3-8.2) g/dL 02/03/18 02/03/18 Range/Units 05:15 07:16 WBC (3.8-10.6) k/uL RBC (4.30-5.90) m/uL Hgb (13.0-17.5) gm/dL Hct (39.0-53.0) % Sodium 134 L (137-145) mmol/L Chloride 97 L (98-107) mmol/L Carbon Dioxide 20 L (22-30) mmol/L BUN 63 H (9-20) mg/dL Creatinine 3.70 H (0.66-1.25) mg/dL POC Glucose (mg/dL) 156 H (75-99) mg/dL Phosphorus 6.8 H (2.5-4.5) mg/dL AST 78 H (17-59) U/L Total Protein 5.9 L (6.3-8.2) g/dL - Imaging and Cardiology Chest x-ray: image reviewed Assessment and Plan (1) Paroxysmal atrial fibrillation Current Visit: Yes Status: Acute Code(s): I48.0 - PAROXYSMAL ATRIAL FIBRILLATION SNOMED Code(s): 603423330 (2) Acute kidney injury Current Visit: Yes Status: Acute Code(s): N17.9 - ACUTE KIDNEY FAILURE, UNSPECIFIED SNOMED Code(s): 88586119 (3) History of skin cancer Current Visit: No Status: Resolved Code(s): Z85.828 - PERSONAL HISTORY OF OTHER MALIGNANT NEOPLASM OF SKIN SNOMED Code(s): 102110091 (4) Asthma Current Visit: Yes Status: Acute Code(s): J45.909 - UNSPECIFIED ASTHMA, UNCOMPLICATED SNOMED Code(s): 301890429 (5) COPD (chronic obstructive pulmonary disease) Current Visit: Yes Status: Chronic Code(s): J44.9 - CHRONIC OBSTRUCTIVE PULMONARY DISEASE, UNSPECIFIED SNOMED Code(s): 37571749 (6) Diabetes mellitus type 2 in obese Current Visit: Yes Status: Chronic Code(s): E11.69 - TYPE 2 DIABETES MELLITUS WITH OTHER SPECIFIED COMPLICATION; E66.9 - OBESITY, UNSPECIFIED SNOMED Code(s): 55081431 (7) Enlarged prostate Current Visit: Yes Status: Chronic Code(s): N40.0 - BENIGN PROSTATIC HYPERPLASIA WITHOUT LOWER URINRY TRACT SYMP SNOMED Code(s): 963902469 (8) Hyperlipidemia Current Visit: Yes Status: Chronic Code(s): E78.5 - HYPERLIPIDEMIA, UNSPECIFIED SNOMED Code(s): 33669200 (9) Hypertension Current Visit: Yes Status: Chronic Code(s): I10 - ESSENTIAL (PRIMARY) HYPERTENSION SNOMED Code(s): 92620727 (10) Personal history of nicotine dependence Current Visit: No Status: Resolved Code(s): Z87.891 - PERSONAL HISTORY OF NICOTINE DEPENDENCE SNOMED Code(s): 31149094 (11) Presence of stent in coronary artery in patient with coronary artery disease Current Visit: Yes Status: Chronic Code(s): I25.10 - ATHSCL HEART DISEASE OF [place] CORONARY ARTERY W/O ANG PCTRS; Z95.5 - PRESENCE OF CORONARY ANGIOPLASTY IMPLANT AND GRAFT SNOMED Code(s): 885656157 (12) Severe mitral regurgitation by prior echocardiogram Current Visit: Yes Status: Chronic Code(s): I34.0 - NONRHEUMATIC MITRAL ( VALVE) INSUFFICIENCY SNOMED Code(s): 45121238 Plan: 1. Continue aspirin, statin, Plavix, heparin subcu, Lopressor. Will increase beta lencho therapy as tolerated. 2. Continue amiodarone for A. fib prophylaxis. 3. Continue dopamine IV, IV Lasix drip. 4. Wean O2 as tolerated. Encourage incentive spirometry use 10 times every hour while awake. 5. Encourage continued smoking cessation. 6. Increase activity, ambulate as tolerated. PT/OT/cardiac rehab following. 7. Keep Narvaez catheter for 1 more day for strict I/O on Lasix drip. 8. Likely will discontinue ventricular wire and left pleural chest tube later today. 9. Insulin drip/diabetic management per primary care service. 10. GI/DVT prophylaxis. 11. Will monitor daily labs and chest x-rays. 12. More recommendations as patient progresses. Time with Patient: Greater than 30
[2018-02-03] MEDS: IPRATROPIUM-ALBUTEROL 3 ML NEB INHALATION SCH ×4 (07:50→20:29)
[2018-02-03 07:57] LABS: Glucose,Whole Blood 188 mg/dL (75-99)
--- NOTE | 2018-02-03 08:17 | XR ---
EXAMINATION TYPE: XR chest 1V portable DATE OF EXAM: 02/03/2018 COMPARISON: 02/02/2015 HISTORY: Shortness of breath. Postop cardiac surgery. TECHNIQUE: Single frontal view of the chest is obtained. FINDINGS: Right-sided central venous catheter sheath and left thoracostomy tube remain unchanged. Me diastinal drain is been removed. Median sternotomy wires and cardiac closure device are again noted. There is persistent pulmonary vascular congestion and increased haziness of the right hemidiaphragm w ith right midlung airspace disease. Cardia mediastinal silhouette is enlarged. Osseous structures are generally demineralized. IMPRESSION: Progression of pulmonary edema in comparison to the prior with small right pleural effus ion and progressing multifocal right-sided airspace disease. Suspected cardiogenic fluid overload.
[2018-02-03] MEDS: CLOPIDOGREL 75 MG TAB PO SCH (08:54)
[2018-02-03] MEDS: HEPARIN SODIUM,PORCINE 5,000 UNIT/ML 1 ML VIAL SQ SCH ×3 (08:55→16:36)
[2018-02-03] MEDS: AMIODARONE 200 MG TAB PO SCH ×2 (08:55→21:13)
[2018-02-03] MEDS: PANTOPRAZOLE 40 MG TABLET PO SCH (08:55)
[2018-02-03] MEDS: METOPROLOL TARTRATE 12.5 MG TAB PO SCH ×2 (08:55→21:13)
[2018-02-03] MEDS: ASPIRIN 325 MG TAB PO SCH (08:55)
[2018-02-03] MEDS: ATORVASTATIN 40 MG TAB PO SCH (08:55)
[2018-02-03] MEDS: guaiFENesin 600 MG TABLET.ER PO SCH ×2 (08:55→21:13)
[2018-02-03 09:04] LABS: Glucose,Whole Blood 158 mg/dL (75-99)
--- NOTE | 2018-02-03 09:48 | P.ARTDOP ---
Arterial Doppler LOWER EXTREMITY ARTERIAL DOPPLER: DATE OF SERVICE: 01/28/2018 Reason for study: Preop CABG. Doppler waveforms: Multiphasic bilaterally throughout. Pulse volume recording: []. Pressure gradients: None. Ankle-brachial indices: Greater than 1 bilaterally. Toe pressures: [] on the right, [] on the left Impression: Normal study.
--- NOTE | 2018-02-03 09:50 | P.VSCSTY ---
Greater Saphenous Vein Mapping This is bilateral lower extremity greater saphenous vein mapping. Date of service 01/28/2018 Vein quality and ultrasound appearance no intraluminal thrombus or wall changes. Significant branches noted at the right knee and on the left mid calf.. Vein size groin right 9.5 x 10 groin left 8 x 8.6 High thigh right 5.2 x 5.7 high thigh left 6.0 x 7.6 Mid thigh right 4.3 x 5.1 mid thigh left 5.6 x 5.9 Above-knee right 4.0 x 5.5 above- knee left 4.5 x 5.9 Below knee right 4.7 x 5.7 below-knee left 4.6 x 6.2 Mid calf right 3.8 x 4.6 mid calf left 4.4 x 5.8 Ankle right 3.9 x 5.7 ankle left 4.0 x 4.8 Impression usable bilateral greater saphenous vein. Right leg somewhat more consistently of a suitable size..
[2018-02-03 10:05] LABS: Glucose,Whole Blood 134 mg/dL (75-99)
--- NOTE | 2018-02-03 10:28 | P.PN ---
Subjective Progress Note Date: 02/03/18 HPI: Bird Maria~is a 77 y.o.~male~~being seen examined and evaluated today for consultation. This patient was admitted to the [facility] [place], [place] on 01/21/18-after coming in with complaints of dyspnea with no relief from his inhaler and having significant chest pressure. Patient was found to be in A. fib with RVR and was started on a heparin drip. Patient did have an echocardiogram which revealed an EF of 55% with severe mitral regurg is RVSP P was 53 mmHg. He also had a Karlee scan stress test that was also abnormal and a PATTIE with heart catheter, please see those notes for details. Currently the patient was transfered to [facility] on 01/27/18 for a CABG and mitral valve replacement. Upon examination the patient's resting up in bed on room air. He denies any shortness of breath cough or congestion at this time. He denies any smoking history however did state that he did chew tobacco on occasion. He denies any episodes of snoring however states that his sleep each night is very restless and he wakes up a minimum of 6 times per night. The patient has never had a workup for obstructive sleep apnea. Patient also states that he has had 2 previous surgeries 1 on his knee and shoulders and had no problems with anesthesiology, or waking up from surgery. Education has been provided to the patient on the extent of the surgery as well as education on mechanical ventilation intubation and extubation with possible best case scenario outcomes and worst-case scenario comes. Patient verbalizes understanding. Interval History: 01/29/18- patient is being seen examined and evaluated today on rounds. He is resting up in bed on room air. CT is feeling well. Has been ambulating in the hallway. Has been utilizing his incentive spirometer and pulling volumes of approximately 1750 arousals. He denies any cough or congestion at this time. Patient is planned for a CABG tomorrow with cardiothoracic surgery. Preop workup has been completed. He is afebrile no further complaints. All labs and reports have been reviewed. 01/30/2018: Patient seen and examined in the intensive care unit with nursing staff at bedside. The patient has returned from CABG and valve replacement. The patient is on full ventilator support. Ventilator has been adjusted and ABG reviewed. No current issues per nursing staff. 01/31-02/01/[address] АННА Smith notes 02/02/18- patient is being seen examined and evaluated today in the intensive care unit. Patient has been slightly hypotensive and his Primacor has been weaned off off, dopamine has been decreased as well per cardiothoracic services. He continues on insulin drip per protocol. Urine output has been 50- 60 miles per hour. He continues on 4 L of supplemental oxygen via nasal cannula. Does complain of some shortness of breath with exertion and activity. Denies any cough or congestion. He continues to have chest tubes in place to mediastinal and one left pleural itch chest tube did produce 50-70 miles overnight. Patient has been tolerating his clear liquid diet about 75% this morning. He did not need any BiPAP overnight. He continues to have epicardial pacer in VVI mode. He is afebrile no further complaints. 02/03/18- patient is being seen examined and evaluated today on rounds. Patient is resting up in bed on supplemental oxygen. He continues on Lasix drip insulin and dopamine. Patient has noted to have a BUN of 63, his Creatinine is increased to 3.7. Nephrology will be consulted. Chest x-ray was reviewed and does show some progressive pulmonary edema with small right-sided pleural effusion as well as cardiogenic fluid overload. Patient's blood pressure is stable. Per the nursing staff the patient may undergo his chest chest tube removal today. He is hemodynamically stable, no further complaints. Using his incentive spirometer. Objective - Vital Signs Vital signs: Vital Signs Temp 98.2 F 02/03/18 08:00 Pulse 89 02/03/18 10:00 Resp 21 02/03/18 10:00 BP 130/62 02/03/18 09:00 Pulse Ox 95 02/03/18 10:00 Intake & Output 02/02/18 02/03/18 02/03/18 18:59 06:59 18:59 Intake Total 875.379 726.560 119.103 Output Total 630 2175 785 Balance 245.379 -1448.440 -665.897 Weight 111 kg 111.9 kg 111.9 kg Intake: IV 452 708 102 0.9NS Pressure Bags 72 78 12 Furosemide 250 mg In 20 240 Sodium Chloride 0.9% 225 ml @ 20 MG/HR 20 mls/hr IVP .[id number] [facility] Rx#: [id number] Lactated Ringers 1,000 ml 360 390 90 @ 20 mls/hr IV .Q24H [facility] Rx#:[id number] Intake, IV Titration 423.379 18.560 17.103 Amount Albumin Human 25% 50 ml 50 In Empty Bag 1 bag @ 100 mls/hr IVPB ONCE ONE Rx#: [id number] Calcium Chloride 1,000 mg 100 In Sodium Chloride 0.9% 100 ml @ 100 mls/hr IVPB ONCE [facility] Rx#:[id number] Furosemide 250 mg In 222.167 Sodium Chloride 0.9% 225 ml @ 20 MG/HR 20 mls/hr IVP .[id number] [facility] Rx#: [id number] Insulin Regular 100 unit 51.212 18.560 17.103 In Sodium Chloride 0.9% 100 ml @ Per Protocol IV .Q0M [facility] Rx#:[id number] Output: Chest Tube Drainage [address] X 1 [address] X 2 10 Urine 570 2075 775 Other: Voiding Method Indwelling Catheter Indwelling Catheter ABP, PAP, CO, CI - Last Documented Arterial Blood Pressure 106/52 Pulmonary Artery Pressure 35/18 Cardiac Output 4.8 Cardiac Index 2.9 - Exam CONSTITUTIONAL: Patient is seen in no acute distress HEENT: Head is normocephalic, atraumatic. Pupils are equal, conjunctiva clear. Neck is supple, trachea is midline. No JVD. RESPIRATORY: ~Lungs clear to auscultation. No wheezes, rales or rhonchi appreciated. Respirations are even and unlabored. Bases diminished bilaterally CARDIOVASCULAR: ~Heart is irregular rate and rhythm. S1 and S2 are heard. No murmur. [address] GASTROINTESTINAL: ~Abdomen is soft, nontender, nondistended. Bowel sounds are positive. EXTREMITIES: ~No lower extremity edema is noted. Pedal pulses are palpable bilaterally. NEUROLOGICAL: ~Patient is alert and oriented 3. Speech is clear and interactive. No tremor is noted. - Labs CBC & Chem 7: 02/03/18 05:15 02/03/18 05:15 Labs: Abnormal Lab Results - Last 24 Hours (Table) 02/02/18 02/02/18 02/02/18 Range/Units 11:26 12:01 13:12 WBC (3.8-10.6) k/uL RBC (4.30-5.90) m/uL Hgb (13.0-17.5) gm/dL Hct (39.0-53.0) % Sodium (137-145) mmol/L Chloride (98-107) mmol/L Carbon Dioxide (22-30) mmol/L BUN (9-20) mg/dL Creatinine (0.66-1.25) mg/dL POC Glucose (mg/dL) 136 H 129 H 128 H (75-99) mg/dL Phosphorus (2.5-4.5) mg/dL AST (17-59) U/L Total Protein (6.3-8.2) g/dL 02/02/18 02/02/18 02/02/18 Range/Units 14:01 15:10 16:11 WBC (3.8-10.6) k/uL RBC (4.30-5.90) m/uL Hgb (13.0-17.5) gm/dL Hct (39.0-53.0) % Sodium (137-145) mmol/L Chloride (98-107) mmol/L Carbon Dioxide (22-30) mmol/L BUN (9-20) mg/dL Creatinine (0.66-1.25) mg/dL POC Glucose (mg/dL) 105 H 141 H 137 H (75-99) mg/dL Phosphorus (2.5-4.5) mg/dL AST (17-59) U/L Total Protein (6.3-8.2) g/dL 02/02/18 02/02/18 02/02/18 Range/Units 17:12 18:19 18:55 WBC (3.8-10.6) k/uL RBC (4.30-5.90) m/uL Hgb (13.0-17.5) gm/dL Hct (39.0-53.0) % Sodium (137-145) mmol/L Chloride (98-107) mmol/L Carbon Dioxide (22-30) mmol/L BUN (9-20) mg/dL Creatinine (0.66-1.25) mg/dL POC Glucose (mg/dL) 107 H 105 H 116 H (75-99) mg/dL Phosphorus (2.5-4.5) mg/dL AST (17-59) U/L Total Protein (6.3-8.2) g/dL 02/02/18 02/02/18 02/03/18 Range/Units 19:47 21:07 00:03 WBC (3.8-10.6) k/uL RBC (4.30-5.90) m/uL Hgb (13.0-17.5) gm/dL Hct (39.0-53.0) % Sodium (137-145) mmol/L Chloride (98-107) mmol/L Carbon Dioxide (22-30) mmol/L BUN (9-20) mg/dL Creatinine (0.66-1.25) mg/dL POC Glucose (mg/dL) 146 H 105 H 109 H (75-99) mg/dL Phosphorus (2.5-4.5) mg/dL AST (17-59) U/L Total Protein (6.3-8.2) g/dL 02/03/18 02/03/18 02/03/18 Range/Units 01:04 02:02 03:05 WBC (3.8-10.6) k/uL RBC (4.30-5.90) m/uL Hgb (13.0-17.5) gm/dL Hct (39.0-53.0) % Sodium (137-145) mmol/L Chloride (98-107) mmol/L Carbon Dioxide (22-30) mmol/L BUN (9-20) mg/dL Creatinine (0.66-1.25) mg/dL POC Glucose (mg/dL) 105 H 123 H 110 H (75-99) mg/dL Phosphorus (2.5-4.5) mg/dL AST (17-59) U/L Total Protein (6.3-8.2) g/dL 02/03/18 02/03/18 02/03/18 Range/Units 04:02 05:09 05:15 WBC 16.2 H (3.8-10.6) k/uL RBC 3.31 L (4.30-5.90) m/uL Hgb 9.6 L (13.0-17.5) gm/dL Hct 28.6 L (39.0-53.0) % Sodium (137-145) mmol/L Chloride (98-107) mmol/L Carbon Dioxide (22-30) mmol/L BUN (9-20) mg/dL Creatinine (0.66-1.25) mg/dL POC Glucose (mg/dL) 100 H 105 H (75-99) mg/dL Phosphorus (2.5-4.5) mg/dL AST (17-59) U/L Total Protein (6.3-8.2) g/dL 02/03/18 02/03/18 02/03/18 Range/Units 05:15 07:16 07:55 WBC (3.8-10.6) k/uL RBC (4.30-5.90) m/uL Hgb (13.0-17.5) gm/dL Hct (39.0-53.0) % Sodium 134 L (137-145) mmol/L Chloride 97 L (98-107) mmol/L Carbon Dioxide 20 L (22-30) mmol/L BUN 63 H (9-20) mg/dL Creatinine 3.70 H (0.66-1.25) mg/dL POC Glucose (mg/dL) 156 H 188 H (75-99) mg/dL Phosphorus 6.8 H (2.5-4.5) mg/dL AST 78 H (17-59) U/L Total Protein 5.9 L (6.3-8.2) g/dL 02/03/18 02/03/18 Range/Units 09:01 10:04 WBC (3.8-10.6) k/uL RBC (4.30-5.90) m/uL Hgb (13.0-17.5) gm/dL Hct (39.0-53.0) % Sodium (137-145) mmol/L Chloride (98-107) mmol/L Carbon Dioxide (22-30) mmol/L BUN (9-20) mg/dL Creatinine (0.66-1.25) mg/dL POC Glucose (mg/dL) 158 H 134 H (75-99) mg/dL Phosphorus (2.5-4.5) mg/dL AST (17-59) U/L Total Protein (6.3-8.2) g/dL Assessment and Plan Assessment: Assessment: Chest pain Severe mitral regurgitation, s/p MVR ASCAD, s/p CABG 80-90% stenosis of his right coronary artery 60-70% stenosis of the AV circumflex COPD Possible GHULAM Diabetes mellitus type 2 Hyperlipidemia Plan: s/p CABG Medications have been reviewed and will be continued as ordered. Consult nephrology Swathi Borrero reviewed from [facility] reviewed, suggestive of restrictive lung disease, however, without lung volumes and full PFT cannot definitively diagnose. Hemodynamics per CVTS Continue to monitor chest tube Monitor I & O's Outpatient PFT and PSG recommended. Incentive spirometry and pulmonary hygiene. Supplemental oxygen to maintain oxygen saturations greater than 90% if needed. GI and DVT prophylaxis. Patient will also benefit from an outpatient PSG once medically stable and discharged from the hospital. Patient being evaluated for inpatient rehab We will continue to monitor labs/results and adjust treatment as necessary. I performed an examination of the patient and discussed their management with the nurse practitioner. I have reviewed the nurse practitioner's note and agree with the documented findings and plan of care.
[2018-02-03 11:08] LABS: Glucose,Whole Blood 115 mg/dL (75-99)
[2018-02-03 12:08] LABS: Glucose,Whole Blood 112 mg/dL (75-99)
[2018-02-03] MEDS ORDERED: METOCLOPRAMIDE 5 MG/ML 2 ML VIAL IVP STA (13:01)
[2018-02-03] MEDS: FUROSEMIDE 250 MG in SODIUM CHLORIDE 0.9% 225 ML IVP SCH (13:07)
[2018-02-03 13:49] LABS: Glucose,Whole Blood 129 mg/dL (75-99)
--- NOTE | 2018-02-03 14:18 | P.PN ---
Subjective Progress Note Date: 02/03/18 This is a 69 HO pleasant gentleman patient of Dr. Cardoso with underlying history of CAD with prior PCI stent placement, hypertension hypertensive cardiovascular disease hyperlipidemia and diabetes mellitus type 2 asthma OR arthritis COPD admitted to [facility] and was found on imaging studies secondary to his chest pain new onset atrial fibrillation with RVR and shortness of breath, cardiac cath performed 01/26/2018 showing 80% stenosis of RCA, 70% stenoses of the left circumflex involving the AV groove circumflex ostial portion, severe mitral regurgitation, dilated left ventricle ejection fraction 50-55%. He was transferred to [facility] for mitral valve placement and CABG 2 vessel critical stenosis involving left circumflex and right coronary artery. CABG most likely would be anticipated to be done January 30 He was seen at [facility] by , for pulmonary clearance, pertinent laboratories creatinine 1.01 hemoglobin 12.4 TSH 0.93 hemoglobin A1c not done,. Patient currently is on basal bolus Levemir and premeal coverage, instead of home oral medication, continue on Januvia 100 mg at bedtime, cardiology to see, Dr. Marte for consult and consult to Dr. Spicer cardiothoracic, Dr. Salas cardiology. He should maintain IV heparin 01/29: Patient is followed by Dr. Marte and Dr. VC Fry. Patient is scheduled for coronary artery bypass surgery and mitral valve replacement or repair on Friday. Blood sugars are running 156-193. Additional 2units of Novolog added premeal until surgery. Patient states his blood sugars are usually 100-130 at home. 01/30: Patient is going for surgery. 01/31 Patient is postoperative day 1 with mitral valve repair, coronary artery bypass grafting X2. Patient examined bed side. Appears tired. Complains of shortness of breath intermittently. Currently on 2 L of oxygen. Blood pressure continues to drop to systolic in low 80. Initiated on norepinephrine added low -dose. Chest x-ray suggested worsening vascular congestion and pleural effusion. Received 1 dose 80 mg IV Lasix today [place] catheter removed today. Patient is extubated since this morning. 02/01 Patient has increased cough and congestion, on 6 L nasal cannula. CXR concerning for cngestion and pleural effusion. on lasix drip. Lantus increased to 15 units bedtime to decrease insulin requirement. Continue trodjenta 5 mg po daily while in hospital. COntinue insulin drip, plan to switich to sliding scale if not much requirement on drip. Continue metoprolol 25 mg op BID 02/02: Patient has been evaluated by Dr. Diego and may be a candidate for inpatient. Primacor has been discontinued. Patient is currently on dopamine, insulin drip and Lasix drip. Epicardial wires and chest tube out today. Blood sugars are running between 101 and 174. White count has jumped to 19.7 and renal function is worsening with BUN 49 creatinine 3.06. The patient states he did eat his breakfast this morning. 02/03: Renal function continues to worsen with BUN 63 and creatinine 3.70 and phosphorus level continues to rise currently at 6.8. PhosLo will be added. Parathyroid hormone intact will be ordered. Consult with nephrology was added by pulmonary medicine but this was subsequently canceled. Regarding his blood sugars, insulin drip will be discontinued and Levemir will be increased to 20 units at bedtime. Patient is also on dopamine and insulin drips. Lasix drip was discontinued and patient switched to IV Lasix. Objective - Vital Signs Vital signs: Vital Signs Temp 98.2 F 02/03/18 08:00 Pulse 89 02/03/18 10:00 Resp 21 02/03/18 10:00 BP 130/62 02/03/18 09:00 Pulse Ox 95 02/03/18 10:00 Intake & Output 02/02/18 02/03/18 02/03/18 18:59 06:59 18:59 Intake Total 875.379 726.560 119.103 Output Total 630 2175 785 Balance 245.379 -1448.440 -665.897 Weight 111 kg 111.9 kg 111.9 kg Intake: IV 452 708 102 0.9NS Pressure Bags 72 78 12 Furosemide 250 mg In 20 240 Sodium Chloride 0.9% 225 ml @ 20 MG/HR 20 mls/hr IVP .[id number] [facility] Rx#: [id number] Lactated Ringers 1,000 ml 360 390 90 @ 20 mls/hr IV .Q24H [facility] Rx#:[id number] Intake, IV Titration 423.379 18.560 17.103 Amount Albumin Human 25% 50 ml 50 In Empty Bag 1 bag @ 100 mls/hr IVPB ONCE ONE Rx#: [id number] Calcium Chloride 1,000 mg 100 In Sodium Chloride 0.9% 100 ml @ 100 mls/hr IVPB ONCE STA Rx#:[id number] Furosemide 250 mg In 222.167 Sodium Chloride 0.9% 225 ml @ 20 MG/HR 20 mls/hr IVP .[id number] [facility] Rx#: [id number] Insulin Regular 100 unit 51.212 18.560 17.103 In Sodium Chloride 0.9% 100 ml @ Per Protocol IV .Q0M [facility] Rx#:[id number] Output: Chest Tube Drainage [address] X 1 [address] X 2 10 Urine 570 2075 775 Other: Voiding Method Indwelling Catheter Indwelling Catheter Indwelling Catheter ABP, PAP, CO, CI - Last Documented Arterial Blood Pressure 106/52 Pulmonary Artery Pressure 35/18 Cardiac Output 4.8 Cardiac Index 2.9 - Exam General appearance: cooperative, no acute distress,appear sleepy - EENT Eyes: anicteric sclerae, EOMI, PERRLA, dentition normal, normal appearance ENT: NA/AT, normal oropharynx - Neck Neck: no lymphadenopathy, normal ROM, no other, no rigidity, no stridor, no thyromegaly - Respiratory Respiratory: bilateral: diminished rales, rhonchi at bases,Mediastinal and left pleural chest tubes in place to low continuous wall suction. - Cardiovascular Rhythm: regular Heart sounds: normal: S1, S2 Abnormal Heart Sounds: no systolic murmur, no diastolic murmur, no rub, no S3 Gallop, no S4 Gallop, no click, no other - Gastrointestinal General gastrointestinal: normal bowel sounds, soft - Integumentary Integumentary: normal, normal turgor - Neurologic Neurologic: CNII-XII intact - Musculoskeletal Musculoskeletal: strength equal bilaterally - Psychiatric Psychiatric: A&O x's 3, appropriate affect, intact judgment & insight - Labs CBC & Chem 7: 02/03/18 05:15 02/03/18 05:15 Labs: Abnormal Lab Results - Last 24 Hours (Table) 02/02/18 02/02/18 02/02/18 Range/Units 11:26 12:01 13:12 WBC (3.8-10.6) k/uL RBC (4.30-5.90) m/uL Hgb (13.0-17.5) gm/dL Hct (39.0-53.0) % Sodium (137-145) mmol/L Chloride (98-107) mmol/L Carbon Dioxide (22-30) mmol/L BUN (9-20) mg/dL Creatinine (0.66-1.25) mg/dL POC Glucose (mg/dL) 136 H 129 H 128 H (75-99) mg/dL Phosphorus (2.5-4.5) mg/dL AST (17-59) U/L Total Protein (6.3-8.2) g/dL 02/02/18 02/02/18 02/02/18 Range/Units 14:01 15:10 16:11 WBC (3.8-10.6) k/uL RBC (4.30-5.90) m/uL Hgb (13.0-17.5) gm/dL Hct (39.0-53.0) % Sodium (137-145) mmol/L Chloride (98-107) mmol/L Carbon Dioxide (22-30) mmol/L BUN (9-20) mg/dL Creatinine (0.66-1.25) mg/dL POC Glucose (mg/dL) 105 H 141 H 137 H (75-99) mg/dL Phosphorus (2.5-4.5) mg/dL AST (17-59) U/L Total Protein (6.3-8.2) g/dL 02/02/18 02/02/18 02/02/18 Range/Units 17:12 18:19 18:55 WBC (3.8-10.6) k/uL RBC (4.30-5.90) m/uL Hgb (13.0-17.5) gm/dL Hct (39.0-53.0) % Sodium (137-145) mmol/L Chloride (98-107) mmol/L Carbon Dioxide (22-30) mmol/L BUN (9-20) mg/dL Creatinine (0.66-1.25) mg/dL POC Glucose (mg/dL) 107 H 105 H 116 H (75-99) mg/dL Phosphorus (2.5-4.5) mg/dL AST (17-59) U/L Total Protein (6.3-8.2) g/dL 02/02/18 02/02/18 02/03/18 Range/Units 19:47 21:07 00:03 WBC (3.8-10.6) k/uL RBC (4.30-5.90) m/uL Hgb (13.0-17.5) gm/dL Hct (39.0-53.0) % Sodium (137-145) mmol/L Chloride (98-107) mmol/L Carbon Dioxide (22-30) mmol/L BUN (9-20) mg/dL Creatinine (0.66-1.25) mg/dL POC Glucose (mg/dL) 146 H 105 H 109 H (75-99) mg/dL Phosphorus (2.5-4.5) mg/dL AST (17-59) U/L Total Protein (6.3-8.2) g/dL 02/03/18 02/03/18 02/03/18 Range/Units 01:04 02:02 03:05 WBC (3.8-10.6) k/uL RBC (4.30-5.90) m/uL Hgb (13.0-17.5) gm/dL Hct (39.0-53.0) % Sodium (137-145) mmol/L Chloride (98-107) mmol/L Carbon Dioxide (22-30) mmol/L BUN (9-20) mg/dL Creatinine (0.66-1.25) mg/dL POC Glucose (mg/dL) 105 H 123 H 110 H (75-99) mg/dL Phosphorus (2.5-4.5) mg/dL AST (17-59) U/L Total Protein (6.3-8.2) g/dL 02/03/18 02/03/18 02/03/18 Range/Units 04:02 05:09 05:15 WBC 16.2 H (3.8-10.6) k/uL RBC 3.31 L (4.30-5.90) m/uL Hgb 9.6 L (13.0-17.5) gm/dL Hct 28.6 L (39.0-53.0) % Sodium (137-145) mmol/L Chloride (98-107) mmol/L Carbon Dioxide (22-30) mmol/L BUN (9-20) mg/dL Creatinine (0.66-1.25) mg/dL POC Glucose (mg/dL) 100 H 105 H (75-99) mg/dL Phosphorus (2.5-4.5) mg/dL AST (17-59) U/L Total Protein (6.3-8.2) g/dL 02/03/18 02/03/18 02/03/18 Range/Units 05:15 07:16 07:55 WBC (3.8-10.6) k/uL RBC (4.30-5.90) m/uL Hgb (13.0-17.5) gm/dL Hct (39.0-53.0) % Sodium 134 L (137-145) mmol/L Chloride 97 L (98-107) mmol/L Carbon Dioxide 20 L (22-30) mmol/L BUN 63 H (9-20) mg/dL Creatinine 3.70 H (0.66-1.25) mg/dL POC Glucose (mg/dL) 156 H 188 H (75-99) mg/dL Phosphorus 6.8 H (2.5-4.5) mg/dL AST 78 H (17-59) U/L Total Protein 5.9 L (6.3-8.2) g/dL 02/03/18 02/03/18 Range/Units 09:01 10:04 WBC (3.8-10.6) k/uL RBC (4.30-5.90) m/uL Hgb (13.0-17.5) gm/dL Hct (39.0-53.0) % Sodium (137-145) mmol/L Chloride (98-107) mmol/L Carbon Dioxide (22-30) mmol/L BUN (9-20) mg/dL Creatinine (0.66-1.25) mg/dL POC Glucose (mg/dL) 158 H 134 H (75-99) mg/dL Phosphorus (2.5-4.5) mg/dL AST (17-59) U/L Total Protein (6.3-8.2) g/dL Assessment and Plan Plan: 1. Severe mitral regurgitation and CAD with 2 vessel critical stenosis s/p CABG , and mitral valve repair, Dr. Spicer from cardiovascular surgery. Cardiology is following. Dr. Vides is covering for intensive care management. extubated. Continue Plavix 75 mg daily, aspirin 325 mg daily, Lipitor 40 mg daily. 2. Diabetes mellitus type 2 previous oral medications have been discontinued mainly Glucotrol and metformin, continue tradjenta, Levemir at 15 units every at bedtime, and insulin drip until diet has been optimized postop 3. New onset atrial fibrillation, paroxysmal, currently on oral amiodarone and metoprolol tartrate 12.5 mg twice daily 4. Acute kidney injury with CKD stage II with baseline creatinine 1.01, continue to monitor. 5. Hyperphosphatemia secondary to acute kidney injury. PhosLo added. Parathyroid hormone intact ordered. 6. CAD with previous PCI and stent placement with recent cardiac cath [address] Reynolds found to have 60-70% stenosis involving left circumflex AV groove circumflex ostial portion, and RCA 80% stenosis mid RCA, EF 50-55% left ventricle end-diastolic pressure 14 severe mitral regurgitation. 7. BPH without urinary tract symptomatology. Continue Flomax or 0.8 mg at bedtime daily. Monitor for urinary retention. 8. Mild intermittent asthma without any current exacerbation with COPD and when necessary nebulizer, incentive spirometry, 9. Hypertensive cardiovascular disease. Patient on Lopressor. 10. History of skin cancer 11. Osteoarthritis, generalized. 12. Hyperlipidemia on Lipitor 40 mg daily GI prophylaxis DVT prophylaxis Discharge plan: Inpatient rehab Impression and plan of care have been directed as dictated by the signing physician. Zoya Lenz nurse practitioner acting as scribe for signing physician.
[2018-02-03] MEDS: DEXTROSE/WATER 1 500ML.BAG with DOPamine DRIP 800 MG IV SCH (15:27)
[2018-02-03] MEDS: LACTATED RINGERS 1,000 ML IV SCH (15:28)
--- NOTE | 2018-02-03 16:33 | P.PN ---
Subjective Progress Note Date: 02/03/18 Principal diagnosis: Status post CABG and also mitral valve replacement This 77-year-old gentleman status post bypass surgery and also mitral valve repair, seems to be hemodynamically more stable. Patient is on IV Lasix and dopamine and urine output has improved. His creatinine, however went up to 3.7. His renal consult is being initiated. Patient however feels nauseated and not feeling well. He remains in sinus rhythm. He is on IV amiodarone for prevention of atrial fibrillation. His electoral lites are normal. We'll continue his current medical therapy. Call follow his renal functions closely. Hopefully his creatinine and renal function will improve. Prognosis is guarded Objective - Vital Signs Vital signs: Vital Signs Temp 98.1 F 02/03/18 16:00 Pulse 81 02/03/18 16:00 Resp 20 02/03/18 16:00 BP 90/55 02/03/18 16:00 Pulse Ox 94 L 02/03/18 16:00 Intake & Output 02/02/18 02/03/18 02/03/18 18:59 06:59 18:59 Intake Total 875.379 726.560 314.490 Output Total 630 2175 1460 Balance 245.379 -1448.440 -1145.510 Weight 111 kg 111.9 kg 111.9 kg Intake: IV 452 708 292 0.9NS Pressure Bags 72 78 42 Furosemide 250 mg In 20 240 Sodium Chloride 0.9% 225 ml @ 20 MG/HR 20 mls/hr IVP .[id number] [facility] Rx#: [id number] Lactated Ringers 1,000 ml 360 390 250 @ 20 mls/hr IV .Q24H [facility] Rx#:[id number] Intake, IV Titration 423.379 18.560 22.490 Amount Albumin Human 25% 50 ml 50 In Empty Bag 1 bag @ 100 mls/hr IVPB ONCE ONE Rx#: [id number] Calcium Chloride 1,000 mg 100 In Sodium Chloride 0.9% 100 ml @ 100 mls/hr IVPB ONCE STA Rx#:[id number] Furosemide 250 mg In 222.167 Sodium Chloride 0.9% 225 ml @ 20 MG/HR 20 mls/hr IVP .[id number] [facility] Rx#: [id number] Insulin Regular 100 unit 51.212 18.560 22.490 In Sodium Chloride 0.9% 100 ml @ Per Protocol IV .Q0M [facility] Rx#:[id number] Output: Chest Tube Drainage [address] X 1 [address] X 2 10 Urine 570 2075 1450 Other: Voiding Method Indwelling Catheter Indwelling Catheter Indwelling Catheter ABP, PAP, CO, CI - Last Documented Arterial Blood Pressure 99/45 Pulmonary Artery Pressure 35/18 Cardiac Output 4.8 Cardiac Index 2.9 - Exam GENERAL EXAM: Patient is alert and oriented and in mild distress and seemed to be nauseated HEENT: Normocephalic. Normal reaction of pupils, equal size, normal range of extraocular motion. No erythema or exudates in the throat. NECK: No masses, no nuchal rigidity. CHEST: Postsurgical. LUNGS: Diminished breath sounds at bases HEART: Distant heart sounds ABDOMEN: Deferred SKIN: No rashes CENTRAL NERVOUS SYSTEM: No focal deficits. EXTREMITIES: No cyanosis, clubbing or edema. - Labs CBC & Chem 7: 02/03/18 05:15 02/03/18 05:15 Labs: Abnormal Lab Results - Last 24 Hours (Table) 02/02/18 02/02/18 02/02/18 Range/Units 17:12 18:19 18:55 WBC (3.8-10.6) k/uL RBC (4.30-5.90) m/uL Hgb (13.0-17.5) gm/dL Hct (39.0-53.0) % Sodium (137-145) mmol/L Chloride (98-107) mmol/L Carbon Dioxide (22-30) mmol/L BUN (9-20) mg/dL Creatinine (0.66-1.25) mg/dL POC Glucose (mg/dL) 107 H 105 H 116 H (75-99) mg/dL Phosphorus (2.5-4.5) mg/dL AST (17-59) U/L Total Protein (6.3-8.2) g/dL 02/02/18 02/02/18 02/03/18 Range/Units 19:47 21:07 00:03 WBC (3.8-10.6) k/uL RBC (4.30-5.90) m/uL Hgb (13.0-17.5) gm/dL Hct (39.0-53.0) % Sodium (137-145) mmol/L Chloride (98-107) mmol/L Carbon Dioxide (22-30) mmol/L BUN (9-20) mg/dL Creatinine (0.66-1.25) mg/dL POC Glucose (mg/dL) 146 H 105 H 109 H (75-99) mg/dL Phosphorus (2.5-4.5) mg/dL AST (17-59) U/L Total Protein (6.3-8.2) g/dL 02/03/18 02/03/18 02/03/18 Range/Units 01:04 02:02 03:05 WBC (3.8-10.6) k/uL RBC (4.30-5.90) m/uL Hgb (13.0-17.5) gm/dL Hct (39.0-53.0) % Sodium (137-145) mmol/L Chloride (98-107) mmol/L Carbon Dioxide (22-30) mmol/L BUN (9-20) mg/dL Creatinine (0.66-1.25) mg/dL POC Glucose (mg/dL) 105 H 123 H 110 H (75-99) mg/dL Phosphorus (2.5-4.5) mg/dL AST (17-59) U/L Total Protein (6.3-8.2) g/dL 02/03/18 02/03/18 02/03/18 Range/Units 04:02 05:09 05:15 WBC 16.2 H (3.8-10.6) k/uL RBC 3.31 L (4.30-5.90) m/uL Hgb 9.6 L (13.0-17.5) gm/dL Hct 28.6 L (39.0-53.0) % Sodium (137-145) mmol/L Chloride (98-107) mmol/L Carbon Dioxide (22-30) mmol/L BUN (9-20) mg/dL Creatinine (0.66-1.25) mg/dL POC Glucose (mg/dL) 100 H 105 H (75-99) mg/dL Phosphorus (2.5-4.5) mg/dL AST (17-59) U/L Total Protein (6.3-8.2) g/dL 05/02/03/18 02/03/18 Range/Units 05:15 07:16 07:55 WBC (3.8-10.6) k/uL RBC (4.30-5.90) m/uL Hgb (13.0-17.5) gm/dL Hct (39.0-53.0) % Sodium 134 L (137-145) mmol/L Chloride 97 L (98-107) mmol/L Carbon Dioxide 20 L (22-30) mmol/L BUN 63 H (9-20) mg/dL Creatinine 3.70 H (0.66-1.25) mg/dL POC Glucose (mg/dL) 156 H 188 H (75-99) mg/dL Phosphorus 6.8 H (2.5-4.5) mg/dL AST 78 H (17-59) U/L Total Protein 5.9 L (6.3-8.2) g/dL 02/03/18 02/03/18 02/03/18 Range/Units 09:01 10:04 11:04 WBC (3.8-10.6) k/uL RBC (4.30-5.90) m/uL Hgb (13.0-17.5) gm/dL Hct (39.0-53.0) % Sodium (137-145) mmol/L Chloride (98-107) mmol/L Carbon Dioxide (22-30) mmol/L BUN (9-20) mg/dL Creatinine (0.66-1.25) mg/dL POC Glucose (mg/dL) 158 H 134 H 115 H (75-99) mg/dL Phosphorus (2.5-4.5) mg/dL AST (17-59) U/L Total Protein (6.3-8.2) g/dL 02/03/18 02/03/18 Range/Units 12:06 13:48 WBC (3.8-10.6) k/uL RBC (4.30-5.90) m/uL Hgb (13.0-17.5) gm/dL Hct (39.0-53.0) % Sodium (137-145) mmol/L Chloride (98-107) mmol/L Carbon Dioxide (22-30) mmol/L BUN (9-20) mg/dL Creatinine (0.66-1.25) mg/dL POC Glucose (mg/dL) 112 H 129 H (75-99) mg/dL Phosphorus (2.5-4.5) mg/dL AST (17-59) U/L Total Protein (6.3-8.2) g/dL Assessment and Plan (1) H/O coronary artery bypass surgery Current Visit: Yes Status: Acute Code(s): Z95.1 - PRESENCE OF AORTOCORONARY BYPASS GRAFT SNOMED Code(s): 469158034 (2) History of mitral valve repair Current Visit: Yes Status: Acute Code(s): Z98.890 - OTHER SPECIFIED POSTPROCEDURAL STATES SNOMED Code(s): 850039698 (3) COPD (chronic obstructive pulmonary disease) Current Visit: Yes Status: Chronic Code(s): J44.9 - CHRONIC OBSTRUCTIVE PULMONARY DISEASE, UNSPECIFIED SNOMED Code(s): 66162112 (4) Diabetes mellitus type 2 in obese Current Visit: Yes Status: Chronic Code(s): E11.69 - TYPE 2 DIABETES MELLITUS WITH OTHER SPECIFIED COMPLICATION; E66.9 - OBESITY, UNSPECIFIED SNOMED Code(s): 20218864 (5) Hyperlipidemia Current Visit: Yes Status: Chronic Code(s): E78.5 - HYPERLIPIDEMIA, UNSPECIFIED SNOMED Code(s): 81899733 (6) Acute kidney injury Current Visit: Yes Status: Acute Code(s): N17.9 - ACUTE KIDNEY FAILURE, UNSPECIFIED SNOMED Code(s): 85278269 Plan: Patient is still complaining of nausea and not feeling well. His creatinine is up but his urine output has improved. Patient is in negative balance. Nephrology consult is being obtained. Chest x-ray showed cardiomegaly and effusion, especially on the right side. Further recommendation will depend upon the clinical course
[2018-02-03] MEDS: FUROSEMIDE 10 MG/ML 4 ML VIAL IV SCH (16:36)
[2018-02-03 17:21] LABS: Glucose,Whole Blood 194 mg/dL (75-99)
[2018-02-03] MEDS: INSULIN ASPART 100 UNIT/ML 1 ML 10 ML VIAL SQ SCH ×2 (17:31→21:13)
[2018-02-03] MEDS: CALCIUM ACETATE 667 MG CAP PO SCH (17:33)
[2018-02-03 19:54] LABS: Glucose,Whole Blood 247 mg/dL (75-99)
[2018-02-03] MEDS: HYDROcodone/APAP 7.5-325MG 1 EACH TAB PO PRN (20:03)
[2018-02-03] MEDS ORDERED: INSULIN DETEMIR 100 UNIT/ML 10 ML VIAL SQ SCH (21:00)
[2018-02-03 21:06] LABS: Glucose,Whole Blood 233 mg/dL (75-99)
[2018-02-03] MEDS: LINAGLIPTIN 5 MG TABLET PO SCH (21:13)
[2018-02-03] MEDS: SENNOSIDES-DOCUSATE SODIUM 1 EACH TAB PO SCH (21:14)
[2018-02-04] MEDS: HEPARIN SODIUM,PORCINE 5,000 UNIT/ML 1 ML VIAL SQ SCH ×4 (00:06→23:07)
[2018-02-04] MEDS: FUROSEMIDE 10 MG/ML 4 ML VIAL IV SCH ×5 (00:07→23:07)
[2018-02-04] MEDS: HYDROcodone/APAP 7.5-325MG 1 EACH TAB PO PRN ×3 (01:52→22:45)
[2018-02-04 05:05] LABS: HCT 28.1 % (39.0-53.0); HGB 9.4 gm/dL (13.0-17.5); MCH 28.5 pg (25.0-35.0); MCHC 33.3 g/dL (31.0-37.0); MCV 85.8 fL (80.0-100.0); Platelet Count 214 k/uL (150-450); RBC 3.28 m/uL (4.30-5.90); RDW 14.9 % (11.5-15.5); WBC 12.3 k/uL (3.8-10.6)
[2018-02-04 05:30] LABS: Ionized Calcium 4.5 mg/dL (4.5-5.3)
[2018-02-04 05:44] LABS: Albumin 3.4 g/dL (3.5-5.0); Calcium 8.6 mg/dL (8.4-10.2); Magnesium 2.3 mg/dL (1.6-2.3); Phosphorus 6.8 mg/dL (2.5-4.5); Potassium 4.1 mmol/L (3.5-5.1); Total Bilirubin 1.4 mg/dL (0.2-1.3); Total Protein 5.8 g/dL (6.3-8.2)
[2018-02-04] MEDS: ONDANSETRON 4 MG/2 ML VIAL IVP PRN (06:04)
[2018-02-04 07:08] LABS: Glucose,Whole Blood 208 mg/dL (75-99)
[2018-02-04] MEDS: PANTOPRAZOLE 40 MG TABLET PO SCH (07:09)
[2018-02-04] MEDS: INSULIN ASPART 100 UNIT/ML 1 ML 10 ML VIAL SQ SCH ×8 (07:09→21:31)
[2018-02-04] MEDS: CALCIUM ACETATE 667 MG CAP PO SCH ×3 (07:09→17:33)
[2018-02-04] MEDS: IPRATROPIUM-ALBUTEROL 3 ML NEB INHALATION SCH ×4 (07:33→20:02)
--- NOTE | 2018-02-04 08:23 | XR ---
EXAMINATION TYPE: XR chest 1V portable DATE OF EXAM: 02/04/2018 Comparison: 02/03/2018 Clinical History: 77-year-old male Post Operative Cardiac Surgery Findings: Right IJ catheter at the upper SVC level. Median sternotomy wires are present. Cardiomegaly remains. Diffuse interstitial prominence shows some improvement. The airspace opacity in the right lower lung has improved. Trace effusions may remain. Some residual patchy bibasilar densities are present. Impression: 1. Improving CHF with residual pulmonary vascular congestion. 2. Improvement in the right pleural effusion. Residual trace effusions with adjacent atelectasis and/ or consolidation are suspected.
[2018-02-04] MEDS: AMIODARONE 200 MG TAB PO SCH ×2 (08:38→21:24)
[2018-02-04] MEDS: CLOPIDOGREL 75 MG TAB PO SCH (08:38)
[2018-02-04] MEDS: ATORVASTATIN 40 MG TAB PO SCH (08:38)
[2018-02-04] MEDS: ASPIRIN 325 MG TAB PO SCH (08:38)
[2018-02-04] MEDS: guaiFENesin 600 MG TABLET.ER PO SCH ×2 (08:39→21:24)
[2018-02-04] MEDS: METOPROLOL TARTRATE 12.5 MG TAB PO SCH ×2 (08:39→21:24)
[2018-02-04] MEDS ORDERED: INSULIN DETEMIR 100 UNIT/ML 10 ML VIAL SQ SCH (09:00)
--- NOTE | 2018-02-04 10:15 | P.PN ---
Subjective Progress Note Date: 02/04/18 HPI: Bird Maria~is a 77 y.o.~male~~being seen examined and evaluated today for consultation. This patient was admitted to the [facility] on 01/21/18-after coming in with complaints of dyspnea with no relief from his inhaler and having significant chest pressure. Patient was found to be in A. fib with RVR and was started on a heparin drip. Patient did have an echocardiogram which revealed an EF of 55% with severe mitral regurg is RVSP P was 53 mmHg. He also had a Karlee scan stress test that was also abnormal and a PATTIE with heart catheter, please see those notes for details. Currently the patient was transfered to [facility] on 01/27/18 for a CABG and mitral valve replacement. Upon examination the patient's resting up in bed on room air. He denies any shortness of breath cough or congestion at this time. He denies any smoking history however did state that he did chew tobacco on occasion. He denies any episodes of snoring however states that his sleep each night is very restless and he wakes up a minimum of 6 times per night. The patient has never had a workup for obstructive sleep apnea. Patient also states that he has had 2 previous surgeries 1 on his knee and shoulders and had no problems with anesthesiology, or waking up from surgery. Education has been provided to the patient on the extent of the surgery as well as education on mechanical ventilation intubation and extubation with possible best case scenario outcomes and worst-case scenario comes. Patient verbalizes understanding. Interval History: 01/29/18- patient is being seen examined and evaluated today on rounds. He is resting up in bed on room air. CT is feeling well. Has been ambulating in the hallway. Has been utilizing his incentive spirometer and pulling volumes of approximately 1750 arousals. He denies any cough or congestion at this time. Patient is planned for a CABG tomorrow with cardiothoracic surgery. Preop workup has been completed. He is afebrile no further complaints. All labs and reports have been reviewed. 01/30/2018: Patient seen and examined in the intensive care unit with nursing staff at bedside. The patient has returned from CABG and valve replacement. The patient is on full ventilator support. Ventilator has been adjusted and ABG reviewed. No current issues per nursing staff. 01/31-02/01/[address] АННА Smith notes 02/02/18- patient is being seen examined and evaluated today in the intensive care unit. Patient has been slightly hypotensive and his Primacor has been weaned off off, dopamine has been decreased as well per cardiothoracic services. He continues on insulin drip per protocol. Urine output has been 50- 60 miles per hour. He continues on 4 L of supplemental oxygen via nasal cannula. Does complain of some shortness of breath with exertion and activity. Denies any cough or congestion. He continues to have chest tubes in place to mediastinal and one left pleural itch chest tube did produce 50-70 miles overnight. Patient has been tolerating his clear liquid diet about 75% this morning. He did not need any BiPAP overnight. He continues to have epicardial pacer in VVI mode. He is afebrile no further complaints. 02/03/18- patient is being seen examined and evaluated today on rounds. Patient is resting up in bed on supplemental oxygen. He continues on Lasix drip insulin and dopamine. Patient has noted to have a BUN of 63, his Creatinine is increased to 3.7. Nephrology will be consulted. Chest x-ray was reviewed and does show some progressive pulmonary edema with small right-sided pleural effusion as well as cardiogenic fluid overload. Patient's blood pressure is stable. Per the nursing staff the patient may undergo his chest chest tube removal today. He is hemodynamically stable, no further complaints. Using his incentive spirometer. 02/04/18- patient is being seen examined and evaluated today on rounds. He remains in the intensive care unit. His BUN today is 77 g 3.6, nephrology was consulted yesterday and was subsequently canceled per the admitting team. Chest x-ray was reviewed and does show some improvement and CHF and improvement in the right pleural effusion. Patient was taken off Lasix drip and switched to IV push Lasix. His chest tube was removed yesterday. His dopamine is currently on hold. He is hemodynamically stable. Objective - Vital Signs Vital signs: Vital Signs Temp 97.8 F 02/04/18 08:00 Pulse 89 02/04/18 09:00 Resp 19 02/04/18 09:00 BP 126/62 02/04/18 06:00 Pulse Ox 96 05/16/18 09:00 Intake & Output 02/03/18 02/04/18 02/04/18 18:59 06:59 18:59 Intake Total 360.490 320 52 Output Total 1685 2180 280 Balance -1324.510 -1860 -228 Weight 111.9 kg 109 kg Intake: IV 338 320 52 0.9NS Pressure Bags 48 60 12 Lactated Ringers 1,000 ml 290 260 40 @ 20 mls/hr IV .Q24H [facility] Rx#:[id number] Intake, IV Titration 22.490 Amount Insulin Regular 100 unit 22.490 In Sodium Chloride 0.9% 100 ml @ Per Protocol IV .Q0M [facility] Rx#:[id number] Output: Chest Tube Drainage [address] X 1 10 Urine 1675 2180 280 Other: Voiding Method Indwelling Catheter Indwelling Catheter ABP, PAP, CO, CI - Last Documented Arterial Blood Pressure 142/66 Pulmonary Artery Pressure 35/18 Cardiac Output 4.8 Cardiac Index 2.9 - Exam CONSTITUTIONAL: Patient is seen in no acute distress HEENT: Head is normocephalic, atraumatic. Pupils are equal, conjunctiva clear. Neck is supple, trachea is midline. No JVD. RESPIRATORY: ~Lungs clear to auscultation. No wheezes, rales or rhonchi appreciated. Respirations are even and unlabored. Bases diminished bilaterally CARDIOVASCULAR: ~Heart is irregular rate and rhythm. S1 and S2 are heard. No murmur. [address] GASTROINTESTINAL: ~Abdomen is soft, nontender, nondistended. Bowel sounds are positive. EXTREMITIES: ~No lower extremity edema is noted. Pedal pulses are palpable bilaterally. NEUROLOGICAL: ~Patient is alert and oriented 3. Speech is clear and interactive. No tremor is noted. - Labs CBC & Chem 7: 02/04/18 04:30 02/04/18 04:30 Labs: Abnormal Lab Results - Last 24 Hours (Table) 02/03/18 02/03/18 02/03/18 Range/Units 05:15 11:04 12:06 WBC (3.8-10.6) k/uL RBC (4.30-5.90) m/uL Hgb (13.0-17.5) gm/dL Hct (39.0-53.0) % Sodium (137-145) mmol/L Chloride (98-107) mmol/L Carbon Dioxide (22-30) mmol/L BUN (9-20) mg/dL Creatinine (0.66-1.25) mg/dL Glucose (74-99) mg/dL POC Glucose (mg/dL) 115 H 112 H (75-99) mg/dL Phosphorus (2.5-4.5) mg/dL Total Bilirubin (0.2-1.3) mg/dL Total Protein (6.3-8.2) g/dL Albumin (3.5-5.0) g/dL PTH Intact 114.0 H (14.0-72.0) pg/mL 02/03/18 02/03/18 02/03/18 Range/Units 13:48 17:20 19:53 WBC (3.8-10.6) k/uL RBC (4.30-5.90) m/uL Hgb (13.0-17.5) gm/dL Hct (39.0-53.0) % Sodium (137-145) mmol/L Chloride (98-107) mmol/L Carbon Dioxide (22-30) mmol/L BUN (9-20) mg/dL Creatinine (0.66-1.25) mg/dL Glucose (74-99) mg/dL POC Glucose (mg/dL) 129 H 194 H 247 H (75-99) mg/dL Phosphorus (2.5-4.5) mg/dL Total Bilirubin (0.2-1.3) mg/dL Total Protein (6.3-8.2) g/dL Albumin (3.5-5.0) g/dL PTH Intact (14.0-72.0) pg/mL 02/03/18 02/04/18 02/04/18 Range/Units 21:04 04:30 04:30 WBC 12.3 H (3.8-10.6) k/uL RBC 3.28 L (4.30-5.90) m/uL Hgb 9.4 L (13.0-17.5) gm/dL Hct 28.1 L (39.0-53.0) % Sodium 133 L (137-145) mmol/L Chloride 94 L (98-107) mmol/L Carbon Dioxide 21 L (22-30) mmol/L BUN 77 H (9-20) mg/dL Creatinine 3.60 H (0.66-1.25) mg/dL Glucose 205 H (74-99) mg/dL POC Glucose (mg/dL) 233 H (75-99) mg/dL Phosphorus 6.8 H (2.5-4.5) mg/dL Total Bilirubin 1.4 H (0.2-1.3) mg/dL Total Protein 5.8 L (6.3-8.2) g/dL Albumin 3.4 L (3.5-5.0) g/dL PTH Intact (14.0-72.0) pg/mL 02/04/18 Range/Units 07:06 WBC (3.8-10.6) k/uL RBC (4.30-5.90) m/uL Hgb (13.0-17.5) gm/dL Hct (39.0-53.0) % Sodium (137-145) mmol/L Chloride (98-107) mmol/L Carbon Dioxide (22-30) mmol/L BUN (9-20) mg/dL Creatinine (0.66-1.25) mg/dL Glucose (74-99) mg/dL POC Glucose (mg/dL) 208 H (75-99) mg/dL Phosphorus (2.5-4.5) mg/dL Total Bilirubin (0.2-1.3) mg/dL Total Protein (6.3-8.2) g/dL Albumin (3.5-5.0) g/dL PTH Intact (14.0-72.0) pg/mL Assessment and Plan Assessment: Assessment: Chest pain Severe mitral regurgitation, s/p MVR ASCAD, s/p CABG 80-90% stenosis of his right coronary artery 60-70% stenosis of the AV circumflex COPD Possible GHULAM Diabetes mellitus type 2 Hyperlipidemia Plan: s/p CABG Medications have been reviewed and will be continued as ordered. Consult to nephrology canceled per attending Swathi Adair reviewed from [facility] reviewed, suggestive of restrictive lung disease, however, without lung volumes and full PFT cannot definitively diagnose. Hemodynamics per CVTS Monitor I & O's Outpatient PFT and PSG recommended. Incentive spirometry and pulmonary hygiene. Supplemental oxygen to maintain oxygen saturations greater than 90% if needed. GI and DVT prophylaxis. Patient will also benefit from an outpatient PSG once medically stable and discharged from the hospital. Patient being evaluated for inpatient rehab We will continue to monitor labs/results and adjust treatment as necessary. I performed an examination of the patient and discussed their management with the nurse practitioner. I have reviewed the nurse practitioner's note and agree with the documented findings and plan of care.
[2018-02-04] MEDS: DEXTROSE/WATER 1 500ML.BAG with DOPamine DRIP 800 MG IV SCH (10:52)
[2018-02-04 11:35] LABS: Glucose,Whole Blood 170 mg/dL (75-99)
--- NOTE | 2018-02-04 11:59 | P.PN ---
Subjective Progress Note Date: 02/04/18 Principal diagnosis: Severe mitral regurgitation. 2 vessel coronary artery disease. New onset preoperative paroxysmal atrial fibrillation. 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 POD #5 urgent mitral valve repair with a #30 mm [employer] annular flex band. Clip ligation of the left atrial appendage with a #35 mm AtriClip. Coronary bypass grafting 2 with reverse saphenous vein graft off the aorta to the circumflex artery and the right coronary artery. Endoscopic harvesting of the right greater saphenous vein. Complete left-sided maze procedure using radiofrequency ablation as well as cryoablation. Intraoperative transesophageal echocardiogram. Postoperative hypotension and low urine output requiring combination of IV pressors, lasix, and inotropic support secondary to low cardiac output, intravascular hypovolemia, an unexpected but potential outcome of surgery. Postoperative acute kidney injury, an unexpected but potential outcome of surgery secondary to hemodynamic instability. The patient is currently sitting up in a recliner in no acute distress. States he has no chest pain except when coughing, patient trying not to cough, denies shortness of breath. Does still have intermittent nausea. Patient has ambulated in the room. Ventricular epicardial pacemaker wire and left pleural chest tube were discontinued yesterday. Objective - Vital Signs Vital signs: Vital Signs Temp 97.8 F 02/04/18 08:00 Pulse 89 02/04/18 09:00 Resp 19 02/04/18 09:00 BP 126/62 02/04/18 06:00 Pulse Ox 96 02/04/18 09:00 Intake & Output 02/03/18 02/04/18 02/04/18 18:59 06:59 18:59 Intake Total 360.490 320 52 Output Total 1685 2180 480 Balance -1324.510 -6358 -660 Weight 111.9 kg 109 kg Intake: IV 338 320 52 0.9NS Pressure Bags 48 60 12 Lactated Ringers 1,000 ml 290 260 40 @ 20 mls/hr IV .Q24H [facility] Rx#:[id number] Intake, IV Titration 22.490 Amount Insulin Regular 100 unit 22.490 In Sodium Chloride 0.9% 100 ml @ Per Protocol IV .Q0M [facility] Rx#:[id number] Output: Chest Tube Drainage [address] X 1 10 Urine 1675 2180 480 Other: Voiding Method Indwelling Catheter Indwelling Catheter Indwelling Catheter ABP, PAP, CO, CI - Last Documented Arterial Blood Pressure 142/66 Pulmonary Artery Pressure 35/18 Cardiac Output 4.8 Cardiac Index 2.9 - Constitutional General appearance: Present: cooperative, no acute distress, obese - Respiratory Details: Lungs sounds diminished bilaterally. Respirations even, nonlabored. Currently on 2 L nasal cannula with oxygen saturation 95%. Able to achieve 1250 mL on his incentive spirometry. Weak cough. - Cardiovascular Details: S1, S2 present. Irregular rate and rhythm, sinus arrhythmia with first-degree AV block on telemetry. Sternum stable. Palpable peripheral pulses bilaterally. No edema present. No calf pain or tenderness noted. Right internal jugular Cordis, right radial arterial line present. Antiembolism stockings, SCDs present. Heart hugger in place with patient demonstrating appropriate use. - Gastrointestinal Gastrointestinal Comment(s): Abdomen soft, nontender, nondistended. Active bowel sounds present 4 quadrants. Tolerating diet. Positive small BM yesterday. - Genitourinary Genitourinary Comment(s): Narvaez catheter present draining clear, yellow urine. Output overnight was 125- 200 mL per hour. - Integumentary Integumentary Comment(s): Skin is warm and dry with evidence of good perfusion. Anterior chest incision well approximated and covered with dry intact dressing. Right lower extremity EVH site well approximated. - Neurologic Neurologic: Present: CNII-XII intact - Musculoskeletal Musculoskeletal: Present: gait normal, generalized weakness - Psychiatric Psychiatric: Present: A&O x's 3, appropriate affect, intact judgment & insight - Allied health notes Allied health notes reviewed: nursing - Labs CBC & Chem 7: 02/04/18 04:30 02/04/18 04:30 Labs: Abnormal Lab Results - Last 24 Hours (Table) 02/03/18 02/03/18 02/03/18 Range/Units 05:15 11:04 12:06 WBC (3.8-10.6) k/uL RBC (4.30-5.90) m/uL Hgb (13.0-17.5) gm/dL Hct (39.0-53.0) % Sodium (137-145) mmol/L Chloride (98-107) mmol/L Carbon Dioxide (22-30) mmol/L BUN (9-20) mg/dL Creatinine (0.66-1.25) mg/dL Glucose (74-99) mg/dL POC Glucose (mg/dL) 115 H 112 H (75-99) mg/dL Phosphorus (2.5-4.5) mg/dL Total Bilirubin (0.2-1.3) mg/dL Total Protein (6.3-8.2) g/dL Albumin (3.5-5.0) g/dL PTH Intact 114.0 H (14.0-72.0) pg/mL 02/03/18 02/03/18 02/03/18 Range/Units 13:48 17:20 19:53 WBC (3.8-10.6) k/uL RBC (4.30-5.90) m/uL Hgb (13.0-17.5) gm/dL Hct (39.0-53.0) % Sodium (137-145) mmol/L Chloride (98-107) mmol/L Carbon Dioxide (22-30) mmol/L BUN (9-20) mg/dL Creatinine (0.66-1.25) mg/dL Glucose (74-99) mg/dL POC Glucose (mg/dL) 129 H 194 H 247 H (75-99) mg/dL Phosphorus (2.5-4.5) mg/dL Total Bilirubin (0.2-1.3) mg/dL Total Protein (6.3-8.2) g/dL Albumin (3.5-5.0) g/dL PTH Intact (14.0-72.0) pg/mL 02/03/18 02/04/18 02/04/18 Range/Units 21:04 04:30 04:30 WBC 12.3 H (3.8-10.6) k/uL RBC 3.28 L (4.30-5.90) m/uL Hgb 9.4 L (13.0-17.5) gm/dL Hct 28.1 L (39.0-53.0) % Sodium 133 L (137-145) mmol/L Chloride 94 L (98-107) mmol/L Carbon Dioxide 21 L (22-30) mmol/L BUN 77 H (9-20) mg/dL Creatinine 3.60 H (0.66-1.25) mg/dL Glucose 205 H (74-99) mg/dL POC Glucose (mg/dL) 233 H (75-99) mg/dL Phosphorus 6.8 H (2.5-4.5) mg/dL Total Bilirubin 1.4 H (0.2-1.3) mg/dL Total Protein 5.8 L (6.3-8.2) g/dL Albumin 3.4 L (3.5-5.0) g/dL PTH Intact (14.0-72.0) pg/mL 02/04/18 Range/Units 07:06 WBC (3.8-10.6) k/uL RBC (4.30-5.90) m/uL Hgb (13.0-17.5) gm/dL Hct (39.0-53.0) % Sodium (137-145) mmol/L Chloride (98-107) mmol/L Carbon Dioxide (22-30) mmol/L BUN (9-20) mg/dL Creatinine (0.66-1.25) mg/dL Glucose (74-99) mg/dL POC Glucose (mg/dL) 208 H (75-99) mg/dL Phosphorus (2.5-4.5) mg/dL Total Bilirubin (0.2-1.3) mg/dL Total Protein (6.3-8.2) g/dL Albumin (3.5-5.0) g/dL PTH Intact (14.0-72.0) pg/mL - Imaging and Cardiology Chest x-ray: report reviewed, image reviewed Assessment and Plan (1) Paroxysmal atrial fibrillation Current Visit: Yes Status: Acute Code(s): I48.0 - PAROXYSMAL ATRIAL FIBRILLATION SNOMED Code(s): 463601812 (2) Acute kidney injury Current Visit: Yes Status: Acute Code(s): N17.9 - ACUTE KIDNEY FAILURE, UNSPECIFIED SNOMED Code(s): 05355753 (3) History of skin cancer Current Visit: No Status: Resolved Code(s): Z85.828 - PERSONAL HISTORY OF OTHER MALIGNANT NEOPLASM OF SKIN SNOMED Code(s): 558937922 (4) Asthma Current Visit: Yes Status: Acute Code(s): J45.909 - UNSPECIFIED ASTHMA, UNCOMPLICATED SNOMED Code(s): 428838108 (5) COPD (chronic obstructive pulmonary disease) Current Visit: Yes Status: Chronic Code(s): J44.9 - CHRONIC OBSTRUCTIVE PULMONARY DISEASE, UNSPECIFIED SNOMED Code(s): 01099032 (6) Diabetes mellitus type 2 in obese Current Visit: Yes Status: Chronic Code(s): E11.69 - TYPE 2 DIABETES MELLITUS WITH OTHER SPECIFIED COMPLICATION; E66.9 - OBESITY, UNSPECIFIED SNOMED Code(s): 25593457 (7) Enlarged prostate Current Visit: Yes Status: Chronic Code(s): N40.0 - BENIGN PROSTATIC HYPERPLASIA WITHOUT LOWER URINRY TRACT SYMP SNOMED Code(s): 287977988 (8) Hyperlipidemia Current Visit: Yes Status: Chronic Code(s): E78.5 - HYPERLIPIDEMIA, UNSPECIFIED SNOMED Code(s): 88075320 (9) Hypertension Current Visit: Yes Status: Chronic Code(s): I10 - ESSENTIAL (PRIMARY) HYPERTENSION SNOMED Code(s): 32366283 (10) Personal history of nicotine dependence Current Visit: No Status: Resolved Code(s): Z87.891 - PERSONAL HISTORY OF NICOTINE DEPENDENCE SNOMED Code(s): 35594492 (11) Presence of stent in coronary artery in patient with coronary artery disease Current Visit: Yes Status: Chronic Code(s): I25.10 - ATHSCL HEART DISEASE OF [place] CORONARY ARTERY W/O ANG PCTRS; Z95.5 - PRESENCE OF CORONARY ANGIOPLASTY IMPLANT AND GRAFT SNOMED Code(s): 273221285 (12) Severe mitral regurgitation by prior echocardiogram Current Visit: Yes Status: Chronic Code(s): I34.0 - NONRHEUMATIC MITRAL ( VALVE) INSUFFICIENCY SNOMED Code(s): 53007441 (13) Left carotid stenosis Current Visit: Yes Status: Chronic Code(s): I65.22 - OCCLUSION AND STENOSIS OF LEFT CAROTID ARTERY SNOMED Code(s): 855382399893430 Plan: 1. Continue aspirin, statin, Plavix, heparin subcu, Lopressor. Will increase beta lencho therapy as tolerated. 2. Continue amiodarone for A. fib prophylaxis. 3. Wean off IV dopamine. Continue Lasix 40 mg IV push every 8 hours. 4. Wean O2 as tolerated. Encourage incentive spirometry use 10 times every hour while awake. Encourage patient to cough. 5. Encourage continued smoking cessation. 6. Increase activity, ambulate as tolerated. PT/OT/cardiac rehab following. 7. Discontinue Narvaez catheter, Cordis, arterial line. 8. Will monitor daily labs and chest x-rays. No need for nephrology consult as we will manage his acute kidney injury. 9. Diabetic management per primary care service. 10. GI/DVT prophylaxis. 11. Will keep in ICU for 1 more day as patient just came off dopamine. 12. More recommendations as patient progresses. Time with Patient: Greater than 30
[2018-02-04 12:33] LABS: Glucose,Whole Blood 140 mg/dL (75-99)
[2018-02-04 17:15] LABS: Glucose,Whole Blood 99 mg/dL (75-99)
--- NOTE | 2018-02-04 17:29 | P.PN ---
Subjective Progress Note Date: 02/04/18 This is 77-year-old gentleman who is status post bypass surgery and mitral valve repair. Patient developed renal failure. He seemed to be stabilizing and improving. His urine output is good. He is being weaned off dopamine. Patient is also on amiodarone. He is complaining of mild shortness of breath. Chest x-ray shows improvement. We'll continue current management Objective - Vital Signs Vital signs: Vital Signs Temp 97.9 F 02/04/18 16:00 Pulse 84 02/04/18 17:00 Resp 17 02/04/18 17:00 BP 107/63 02/04/18 17:00 Pulse Ox 98 02/04/18 17:00 Intake & Output 02/03/18 02/04/18 02/04/18 18:59 06:59 18:59 Intake Total 360.490 320 461 Output Total 1685 2180 1195 Balance -1324.510 -1860 -734 Weight 111.9 kg 109 kg 109 kg Intake: IV 338 320 211 0.9NS Pressure Bags 48 60 51 Lactated Ringers 1,000 ml 290 260 160 @ 20 mls/hr IV .Q24H [facility] Rx#:[id number] Intake, IV Titration 22.490 Amount Insulin Regular 100 unit 22.490 In Sodium Chloride 0.9% 100 ml @ Per Protocol IV .Q0M [facility] Rx#:[id number] Oral 250 Output: Chest Tube Drainage [address] X 1 10 Urine 1675 2180 1195 Other: Voiding Method Indwelling Catheter Indwelling Catheter Indwelling Catheter # Voids 1 ABP, PAP, CO, CI - Last Documented Arterial Blood Pressure 91/32 Pulmonary Artery Pressure 35/18 Cardiac Output 4.8 Cardiac Index 2.9 - Exam GENERAL EXAM: Patient is alert and oriented and in mild distress and seemed to be nauseated HEENT: Normocephalic. Normal reaction of pupils, equal size, normal range of extraocular motion. No erythema or exudates in the throat. NECK: No masses, no nuchal rigidity. CHEST: Postsurgical. LUNGS: Diminished breath sounds at bases HEART: Distant heart sounds ABDOMEN: Deferred SKIN: No rashes CENTRAL NERVOUS SYSTEM: No focal deficits. EXTREMITIES: No cyanosis, clubbing or edema. - Labs CBC & Chem 7: 02/04/18 04:30 02/04/18 04:30 Labs: Abnormal Lab Results - Last 24 Hours (Table) 02/03/18 02/03/18 02/03/18 Range/Units 05:15 19:53 21:04 WBC (3.8-10.6) k/uL RBC (4.30-5.90) m/uL Hgb (13.0-17.5) gm/dL Hct (39.0-53.0) % Sodium (137-145) mmol/L Chloride (98-107) mmol/L Carbon Dioxide (22-30) mmol/L BUN (9-20) mg/dL Creatinine (0.66-1.25) mg/dL Glucose (74-99) mg/dL POC Glucose (mg/dL) 247 H 233 H (75-99) mg/dL Phosphorus (2.5-4.5) mg/dL Total Bilirubin (0.2-1.3) mg/dL Total Protein (6.3-8.2) g/dL Albumin (3.5-5.0) g/dL PTH Intact 114.0 H (14.0-72.0) pg/mL 02/04/18 02/04/18 02/04/18 Range/Units 04:30 04:30 07:06 WBC 12.3 H (3.8-10.6) k/uL RBC 3.28 L (4.30-5.90) m/uL Hgb 9.4 L (13.0-17.5) gm/dL Hct 28.1 L (39.0-53.0) % Sodium 133 L (137-145) mmol/L Chloride 94 L (98-107) mmol/L Carbon Dioxide 21 L (22-30) mmol/L BUN 77 H (9-20) mg/dL Creatinine 3.60 H (0.66-1.25) mg/dL Glucose 205 H (74-99) mg/dL POC Glucose (mg/dL) 208 H (75-99) mg/dL Phosphorus 6.8 H (2.5-4.5) mg/dL Total Bilirubin 1.4 H (0.2-1.3) mg/dL Total Protein 5.8 L (6.3-8.2) g/dL Albumin 3.4 L (3.5-5.0) g/dL PTH Intact (14.0-72.0) pg/mL 02/04/18 02/04/18 Range/Units 11:33 12:32 WBC (3.8-10.6) k/uL RBC (4.30-5.90) m/uL Hgb (13.0-17.5) gm/dL Hct (39.0-53.0) % Sodium (137-145) mmol/L Chloride (98-107) mmol/L Carbon Dioxide (22-30) mmol/L BUN (9-20) mg/dL Creatinine (0.66-1.25) mg/dL Glucose (74-99) mg/dL POC Glucose (mg/dL) 170 H 140 H (75-99) mg/dL Phosphorus (2.5-4.5) mg/dL Total Bilirubin (0.2-1.3) mg/dL Total Protein (6.3-8.2) g/dL Albumin (3.5-5.0) g/dL PTH Intact (14.0-72.0) pg/mL Assessment and Plan (1) H/O coronary artery bypass surgery Current Visit: Yes Status: Acute Code(s): Z95.1 - PRESENCE OF AORTOCORONARY BYPASS GRAFT SNOMED Code(s): 334177183 (2) History of mitral valve repair Current Visit: Yes Status: Acute Code(s): Z98.890 - OTHER SPECIFIED POSTPROCEDURAL STATES SNOMED Code(s): 785630998 (3) COPD (chronic obstructive pulmonary disease) Current Visit: Yes Status: Chronic Code(s): J44.9 - CHRONIC OBSTRUCTIVE PULMONARY DISEASE, UNSPECIFIED SNOMED Code(s): 75196438 (4) Diabetes mellitus type 2 in obese Current Visit: Yes Status: Chronic Code(s): E11.69 - TYPE 2 DIABETES MELLITUS WITH OTHER SPECIFIED COMPLICATION; E66.9 - OBESITY, UNSPECIFIED SNOMED Code(s): 46208413 (5) Hyperlipidemia Current Visit: Yes Status: Chronic Code(s): E78.5 - HYPERLIPIDEMIA, UNSPECIFIED SNOMED Code(s): 02946472 (6) Acute kidney injury Current Visit: Yes Status: Acute Code(s): N17.9 - ACUTE KIDNEY FAILURE, UNSPECIFIED SNOMED Code(s): 14860072 Plan: Continue current management. Cranial function seemed to be showing some improvement. Urine output is definitely better. Chest x-ray shows improvement.
[2018-02-04] MEDS: SENNOSIDES-DOCUSATE SODIUM 1 EACH TAB PO SCH (21:24)
[2018-02-04] MEDS: LINAGLIPTIN 5 MG TABLET PO SCH (21:24)
[2018-02-04 21:25] LABS: Glucose,Whole Blood 282 mg/dL (75-99)
[2018-02-04] MEDS: INSULIN DETEMIR 100 UNIT/ML 10 ML VIAL SQ SCH (21:32)
[2018-02-04] MEDS: MAG HYDROX/AL HYDROX/SIMETH 30 ML CUP PO PRN (22:19)
[2018-02-05] MEDS: HYDROcodone/APAP 7.5-325MG 1 EACH TAB PO PRN ×3 (03:13→22:35)
[2018-02-05 04:42] LABS: Basophils % (A) 0 %; Eosinophils # (A) 0.2 k/uL (0-0.7); Eosinophils % (A) 1 %; HCT 30.5 % (39.0-53.0); HGB 9.7 gm/dL (13.0-17.5); Lymphocytes # (A) 0.7 k/uL (1.0-4.8); Lymphocytes % (A) 6 %; MCH 27.9 pg (25.0-35.0); MCV 87.3 fL (80.0-100.0); Mean Platelet Volume 7.2; Monocytes # (A) 1.4 k/uL (0-1.0); Monocytes % (A) 12 %; Neutrophils # (A) 9.2 k/uL (1.3-7.7); Neutrophils % (A) 78 %; Platelet Count 252 k/uL (150-450); RBC 3.49 m/uL (4.30-5.90); RDW 15.3 % (11.5-15.5); WBC 11.8 k/uL (3.8-10.6)
[2018-02-05 05:08] LABS: Ionized Calcium 4.6 mg/dL (4.5-5.3)
[2018-02-05 05:44] LABS: Albumin 3.5 g/dL (3.5-5.0); Calcium 8.9 mg/dL (8.4-10.2); Magnesium 2.3 mg/dL (1.6-2.3); Phosphorus 6.2 mg/dL (2.5-4.5); Total Bilirubin 1.6 mg/dL (0.2-1.3)
--- NOTE | 2018-02-05 06:47 | XR ---
EXAMINATION TYPE: XR chest 1V portable DATE OF EXAM: 02/05/2018 CLINICAL HISTORY: Post open cardiac surgery progress study. TECHNIQUE: Single AP portable upright view of the chest is obtained. COMPARISON: Chest x-ray from one day earlier and older studies. FINDINGS: There is interval removal of right internal jugular cordis sheath. Sternal wires and cardi ac closure device are redemonstrated. Persistent cardiomegaly with central vascular congestion and sm all bilateral pleural effusions. There is persistent medial bibasilar opacities. Upper lungs remain c lear without pneumothorax. There is partial visualization of surgical change right humeral head level . IMPRESSION: Overall stable findings, cardiomegaly with central vascular congestion and small bilate ral pleural effusions with associated patchy bibasilar atelectasis and/or infiltrate all redemonstrat ed.
[2018-02-05] MEDS: IPRATROPIUM-ALBUTEROL 3 ML NEB INHALATION SCH ×4 (07:23→20:42)
[2018-02-05 07:31] LABS: Glucose,Whole Blood 157 mg/dL (75-99)
[2018-02-05] MEDS: INSULIN DETEMIR 100 UNIT/ML 10 ML VIAL SQ SCH ×2 (08:17→21:17)
[2018-02-05] MEDS: INSULIN ASPART 100 UNIT/ML 1 ML 10 ML VIAL SQ SCH ×9 (08:20→21:18)
[2018-02-05] MEDS: PANTOPRAZOLE 40 MG TABLET PO SCH (08:23)
[2018-02-05] MEDS: CALCIUM ACETATE 667 MG CAP PO SCH ×3 (08:23→17:17)
[2018-02-05] MEDS: HEPARIN SODIUM,PORCINE 5,000 UNIT/ML 1 ML VIAL SQ SCH ×3 (08:24→23:30)
[2018-02-05] MEDS: FUROSEMIDE 10 MG/ML 4 ML VIAL IV SCH ×2 (08:24→21:16)
[2018-02-05] MEDS: AMIODARONE 200 MG TAB PO SCH ×2 (08:25→21:16)
[2018-02-05] MEDS: CLOPIDOGREL 75 MG TAB PO SCH (08:25)
[2018-02-05] MEDS: ASPIRIN 325 MG TAB PO SCH (08:25)
[2018-02-05] MEDS: guaiFENesin 600 MG TABLET.ER PO SCH ×2 (08:25→21:16)
[2018-02-05] MEDS: ATORVASTATIN 40 MG TAB PO SCH ×2 (08:25→14:56)
[2018-02-05] MEDS: METOPROLOL TARTRATE 12.5 MG TAB PO SCH ×3 (08:26→21:19)
[2018-02-05] MEDS ORDERED: TAMSULOSIN 0.4 MG CAP.ER.24H PO SCH (08:30)
--- NOTE | 2018-02-05 08:34 | P.PN ---
Subjective Progress Note Date: 02/05/18 Principal diagnosis: Severe mitral regurgitation. 2 vessel coronary artery disease. New onset preoperative paroxysmal atrial fibrillation. 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 POD #6 urgent mitral valve repair with a #30 mm [employer] annular flex band. Clip ligation of the left atrial appendage with a #35 mm AtriClip. Coronary bypass grafting 2 with reverse saphenous vein graft off the aorta to the circumflex artery and the right coronary artery. Endoscopic harvesting of the right greater saphenous vein. Complete left-sided maze procedure using radiofrequency ablation as well as cryoablation. Intraoperative transesophageal echocardiogram. Postoperative hypotension and low urine output requiring combination of IV pressors, lasix, and inotropic support secondary to low cardiac output, intravascular hypovolemia, an unexpected but potential outcome of surgery. Postoperative acute kidney injury, an unexpected but potential outcome of surgery secondary to hemodynamic instability. The patient is currently sitting up in a recliner in no acute distress. States he has no chest pain except when coughing, patient trying not to cough. Denies shortness of breath at rest, does have shortness of breath with ambulation. Denies nausea at this time. Patient has ambulated in the room and out in the hallway 1 time yesterday. Objective - Vital Signs Vital signs: Vital Signs Temp 98.1 F 02/05/18 04:00 Pulse 83 02/05/18 07:35 Resp 28 H 02/05/18 06:00 BP 112/82 02/05/18 06:00 Pulse Ox 94 L 02/05/18 06:00 Intake & Output 02/04/18 02/05/18 02/05/18 18:59 06:59 18:59 Intake Total 661 240 Output Total 1295 175 Balance -634 65 Weight 109 kg Intake: IV 211 0.9NS Pressure Bags 51 Lactated Ringers 1,000 ml 160 @ 20 mls/hr IV .Q24H [facility] Rx#:[id number] Oral 450 240 Output: Urine 1295 175 Other: Voiding Method Indwelling Catheter Indwelling Catheter # Voids 1 1 ABP, PAP, CO, CI - Last Documented Arterial Blood Pressure 91/32 Pulmonary Artery Pressure 35/18 Cardiac Output 4.8 Cardiac Index 2.9 - Constitutional General appearance: Present: cooperative, no acute distress, obese - Respiratory Details: Lungs sounds diminished bilaterally. Respirations even, nonlabored. Currently on room air with oxygen saturation 97%. Able to achieve 6676-6637 mL on his incentive spirometry. Weak cough. - Cardiovascular Details: S1, S2 present. Regular rate and rhythm, sinus rhythm with first-degree AV block on telemetry. Sternum stable. Palpable peripheral pulses bilaterally. No edema present. No calf pain or tenderness noted. Antiembolism stockings, SCDs present. Heart hugger in place with patient demonstrating appropriate use. - Gastrointestinal Gastrointestinal Comment(s): Abdomen soft, nontender, nondistended. Active bowel sounds present 4 quadrants. Tolerating diet. Positive small BM Bel. - Genitourinary Genitourinary Comment(s): Narvaez discontinued yesterday. Patient has voided although small amounts despite IV Lasix. - Integumentary Integumentary Comment(s): Skin is warm and dry with evidence of good perfusion. Anterior chest incision well approximated and covered with dry intact dressing. Right lower extremity EVH site well approximated. - Neurologic Neurologic: Present: CNII-XII intact - Musculoskeletal Musculoskeletal: Present: gait normal, generalized weakness - Psychiatric Psychiatric: Present: A&O x's 3, appropriate affect, intact judgment & insight - Allied health notes Allied health notes reviewed: nursing - Labs CBC & Chem 7: 02/05/18 04:29 02/05/18 04:29 Labs: Abnormal Lab Results - Last 24 Hours (Table) 02/04/18 02/04/18 02/04/18 Range/Units 11:33 12:32 21:23 WBC (3.8-10.6) k/uL RBC (4.30-5.90) m/uL Hgb (13.0-17.5) gm/dL Hct (39.0-53.0) % Neutrophils # (1.3-7.7) k/uL Lymphocytes # (1.0-4.8) k/uL Monocytes # (0-1.0) k/uL Sodium (137-145) mmol/L Chloride (98-107) mmol/L BUN (9-20) mg/dL Creatinine (0.66-1.25) mg/dL Glucose (74-99) mg/dL POC Glucose (mg/dL) 170 H 140 H 282 H (75-99) mg/dL Phosphorus (2.5-4.5) mg/dL Total Bilirubin (0.2-1.3) mg/dL Total Protein (6.3-8.2) g/dL 02/05/18 02/05/18 02/05/18 Range/Units 04:29 04:29 07:29 WBC 11.8 H (3.8-10.6) k/uL RBC 3.49 L (4.30-5.90) m/uL Hgb 9.7 L (13.0-17.5) gm/dL Hct 30.5 L (39.0-53.0) % Neutrophils # 9.2 H (1.3-7.7) k/uL Lymphocytes # 0.7 L (1.0-4.8) k/uL Monocytes # 1.4 H (0-1.0) k/uL Sodium 133 L (137-145) mmol/L Chloride 92 L (98-107) mmol/L BUN 86 H* (9-20) mg/dL Creatinine 3.40 H (0.66-1.25) mg/dL Glucose 139 H (74-99) mg/dL POC Glucose (mg/dL) 157 H (75-99) mg/dL Phosphorus 6.2 H (2.5-4.5) mg/dL Total Bilirubin 1.6 H (0.2-1.3) mg/dL Total Protein 6.0 L (6.3-8.2) g/dL - Imaging and Cardiology Chest x-ray: report reviewed, image reviewed Assessment and Plan (1) Paroxysmal atrial fibrillation Current Visit: Yes Status: Acute Code(s): I48.0 - PAROXYSMAL ATRIAL FIBRILLATION SNOMED Code(s): 707777813 (2) Acute kidney injury Current Visit: Yes Status: Acute Code(s): N17.9 - ACUTE KIDNEY FAILURE, UNSPECIFIED SNOMED Code(s): 10727574 (3) History of skin cancer Current Visit: No Status: Resolved Code(s): Z85.828 - PERSONAL HISTORY OF OTHER MALIGNANT NEOPLASM OF SKIN SNOMED Code(s): 963971897 (4) Asthma Current Visit: Yes Status: Acute Code(s): J45.909 - UNSPECIFIED ASTHMA, UNCOMPLICATED SNOMED Code(s): 518570696 (5) COPD (chronic obstructive pulmonary disease) Current Visit: Yes Status: Chronic Code(s): J44.9 - CHRONIC OBSTRUCTIVE PULMONARY DISEASE, UNSPECIFIED SNOMED Code(s): 64783962 (6) Diabetes mellitus type 2 in obese Current Visit: Yes Status: Chronic Code(s): E11.69 - TYPE 2 DIABETES MELLITUS WITH OTHER SPECIFIED COMPLICATION; E66.9 - OBESITY, UNSPECIFIED SNOMED Code(s): 23203818 (7) Enlarged prostate Current Visit: Yes Status: Chronic Code(s): N40.0 - BENIGN PROSTATIC HYPERPLASIA WITHOUT LOWER URINRY TRACT SYMP SNOMED Code(s): 172369088 (8) Hyperlipidemia Current Visit: Yes Status: Chronic Code(s): E78.5 - HYPERLIPIDEMIA, UNSPECIFIED SNOMED Code(s): 81431823 (9) Hypertension Current Visit: Yes Status: Chronic Code(s): I10 - ESSENTIAL (PRIMARY) HYPERTENSION SNOMED Code(s): 67717405 (10) Personal history of nicotine dependence Current Visit: No Status: Resolved Code(s): Z87.891 - PERSONAL HISTORY OF NICOTINE DEPENDENCE SNOMED Code(s): 16023975 (11) Presence of stent in coronary artery in patient with coronary artery disease Current Visit: Yes Status: Chronic Code(s): I25.10 - ATHSCL HEART DISEASE OF [place] CORONARY ARTERY W/O ANG PCTRS; Z95.5 - PRESENCE OF CORONARY ANGIOPLASTY IMPLANT AND GRAFT SNOMED Code(s): 096062738 (12) Severe mitral regurgitation by prior echocardiogram Current Visit: Yes Status: Chronic Code(s): I34.0 - NONRHEUMATIC MITRAL ( VALVE) INSUFFICIENCY SNOMED Code(s): 85370644 (13) Left carotid stenosis Current Visit: Yes Status: Chronic Code(s): I65.22 - OCCLUSION AND STENOSIS OF LEFT CAROTID ARTERY SNOMED Code(s): 870580485909603 Plan: 1. Continue aspirin, statin, Plavix, heparin subcu, Lopressor. Will increase beta lencho therapy as tolerated. 2. Continue amiodarone for A. fib prophylaxis. 3. Decrease Lasix IV push to 40 mg every 12 hours. Will add hydralazine 25 mg twice daily for afterload reduction. 4. Encourage incentive spirometry use 10 times every hour while awake. Encourage patient to cough. 5. Encourage continued smoking cessation. 6. Increase activity, ambulate as tolerated. PT/OT/cardiac rehab following. 7. Will monitor daily labs and chest x-rays. No need for nephrology consult as we will manage his acute kidney injury. 8. RN instructed to let her scan after void to measure for residual. Flomax started as patient states he's had problems in the past with retention after surgery. 9. Diabetic management per primary care service. 10. GI/DVT prophylaxis. 11. Will place transfer orders for 6 E. selective care today. 12. Discharge planning in progress. Home with home care versus inpatient rehab dependent on patient's ability to ambulate safely. Dr. Diego was consulted and is following. 13. More recommendations as patient progresses. Time with Patient: Greater than 30
[2018-02-05] MEDS: hydrALAZINE HCL 25 MG TAB PO SCH ×2 (08:58→21:17)
[2018-02-05] MEDS ORDERED: INSULIN DETEMIR 100 UNIT/ML 10 ML VIAL SQ STA (09:08)
[2018-02-05 11:49] LABS: Glucose,Whole Blood 113 mg/dL (75-99)
--- NOTE | 2018-02-05 12:23 | P.PN ---
Subjective Progress Note Date: 02/04/18 This is a 69 HO pleasant gentleman patient of Dr. Cardoso with underlying history of CAD with prior PCI stent placement, hypertension hypertensive cardiovascular disease hyperlipidemia and diabetes mellitus type 2 asthma OR arthritis COPD admitted to [facility] and was found on imaging studies secondary to his chest pain new onset atrial fibrillation with RVR and shortness of breath, cardiac cath performed 01/26/2018 showing 80% stenosis of RCA, 70% stenoses of the left circumflex involving the AV groove circumflex ostial portion, severe mitral regurgitation, dilated left ventricle ejection fraction 50-55%. He was transferred to [facility] for mitral valve placement and CABG 2 vessel critical stenosis involving left circumflex and right coronary artery. CABG most likely would be anticipated to be done January 30 He was seen at [facility] by , for pulmonary clearance, pertinent laboratories creatinine 1.01 hemoglobin 12.4 TSH 0.93 hemoglobin A1c not done,. Patient currently is on basal bolus Levemir and premeal coverage, instead of home oral medication, continue on Januvia 100 mg at bedtime, cardiology to see, Dr. Marte for consult and consult to Dr. Spicer cardiothoracic, Dr. Salas cardiology. He should maintain IV heparin 01/29: Patient is followed by Dr. Marte and Dr. VC Fry. Patient is scheduled for coronary artery bypass surgery and mitral valve replacement or repair on Friday. Blood sugars are running 156-193. Additional 2units of Novolog added premeal until surgery. Patient states his blood sugars are usually 100-130 at home. 01/30: Patient is going for surgery. 01/31 Patient is postoperative day 1 with mitral valve repair, coronary artery bypass grafting X2. Patient examined bed side. Appears tired. Complains of shortness of breath intermittently. Currently on 2 L of oxygen. Blood pressure continues to drop to systolic in low 80. Initiated on norepinephrine added low -dose. Chest x-ray suggested worsening vascular congestion and pleural effusion. Received 1 dose 80 mg IV Lasix today [place] catheter removed today. Patient is extubated since this morning. 02/01 Patient has increased cough and congestion, on 6 L nasal cannula. CXR concerning for cngestion and pleural effusion. on lasix drip. Lantus increased to 15 units bedtime to decrease insulin requirement. Continue trodjenta 5 mg po daily while in hospital. COntinue insulin drip, plan to switich to sliding scale if not much requirement on drip. Continue metoprolol 25 mg op BID 02/02: Patient has been evaluated by Dr. Diego and may be a candidate for inpatient. Primacor has been discontinued. Patient is currently on dopamine, insulin drip and Lasix drip. Epicardial wires and chest tube out today. Blood sugars are running between 101 and 174. White count has jumped to 19.7 and renal function is worsening with BUN 49 creatinine 3.06. The patient states he did eat his breakfast this morning. 02/03: Renal function continues to worsen with BUN 63 and creatinine 3.70 and phosphorus level continues to rise currently at 6.8. PhosLo will be added. Parathyroid hormone intact will be ordered. Consult with nephrology was added by pulmonary medicine but this was subsequently canceled. Regarding his blood sugars, insulin drip will be discontinued and Levemir will be increased to 20 units at bedtime. Patient is also on dopamine and insulin drips. Lasix drip was discontinued and patient switched to IV Lasix. 02/04: Patient is now off dopamine. Insulins will be adjusted to NovoLog 5 units with meals and Levemir 12 units twice daily and insulin drip will be discontinued. Ensure will be started as patient is eating very little. Repeat BUN 77 creatinine 3.60. Parathyroid intact is 114 and patient will need follow- up with nephrology as an outpatient. Objective - Vital Signs Vital signs: Vital Signs Temp 97.8 F 02/04/18 08:00 Pulse 78 02/04/18 11:09 Resp 24 02/04/18 11:00 BP 98/60 02/04/18 11:00 Pulse Ox 99 02/04/18 11:00 Intake & Output 02/03/18 02/04/18 02/04/18 18:59 06:59 18:59 Intake Total 360.490 320 354 Output Total 1685 2180 625 Balance -1324.510 -4512 -503 Weight 111.9 kg 109 kg Intake: IV 338 320 104 0.9NS Pressure Bags 48 60 24 Lactated Ringers 1,000 ml 290 260 80 @ 20 mls/hr IV .Q24H [facility] Rx#:[id number] Intake, IV Titration 22.490 Amount Insulin Regular 100 unit 22.490 In Sodium Chloride 0.9% 100 ml @ Per Protocol IV .Q0M [facility] Rx#:[id number] Oral 250 Output: Chest Tube Drainage [address] X 1 10 Urine 1675 2180 625 Other: Voiding Method Indwelling Catheter Indwelling Catheter Indwelling Catheter ABP, PAP, CO, CI - Last Documented Arterial Blood Pressure 104/50 Pulmonary Artery Pressure 35/18 Cardiac Output 4.8 Cardiac Index 2.9 - Exam General appearance: cooperative, no acute distress,appear sleepy - EENT Eyes: anicteric sclerae, EOMI, PERRLA, dentition normal, normal appearance ENT: NA/AT, normal oropharynx - Neck Neck: no lymphadenopathy, normal ROM, no other, no rigidity, no stridor, no thyromegaly - Respiratory Respiratory: bilateral: diminished rales, rhonchi at bases,Mediastinal and left pleural chest tubes in place to low continuous wall suction. - Cardiovascular Rhythm: regular Heart sounds: normal: S1, S2 Abnormal Heart Sounds: no systolic murmur, no diastolic murmur, no rub, no S3 Gallop, no S4 Gallop, no click, no other - Gastrointestinal General gastrointestinal: normal bowel sounds, soft - Integumentary Integumentary: normal, normal turgor - Neurologic Neurologic: CNII-XII intact - Musculoskeletal Musculoskeletal: strength equal bilaterally - Psychiatric Psychiatric: A&O x's 3, appropriate affect, intact judgment & insight - Labs CBC & Chem 7: 02/05/18 04:29 02/05/18 04:29 Labs: Abnormal Lab Results - Last 24 Hours (Table) 02/03/18 02/03/18 02/03/18 Range/Units 05:15 13:48 17:20 WBC (3.8-10.6) k/uL RBC (4.30-5.90) m/uL Hgb (13.0-17.5) gm/dL Hct (39.0-53.0) % Sodium (137-145) mmol/L Chloride (98-107) mmol/L Carbon Dioxide (22-30) mmol/L BUN (9-20) mg/dL Creatinine (0.66-1.25) mg/dL Glucose (74-99) mg/dL POC Glucose (mg/dL) 129 H 194 H (75-99) mg/dL Phosphorus (2.5-4.5) mg/dL Total Bilirubin (0.2-1.3) mg/dL Total Protein (6.3-8.2) g/dL Albumin (3.5-5.0) g/dL PTH Intact 114.0 H (14.0-72.0) pg/mL 02/03/18 02/03/18 02/04/18 Range/Units 19:53 21:04 04:30 WBC 12.3 H (3.8-10.6) k/uL RBC 3.28 L (4.30-5.90) m/uL Hgb 9.4 L (13.0-17.5) gm/dL Hct 28.1 L (39.0-53.0) % Sodium (137-145) mmol/L Chloride (98-107) mmol/L Carbon Dioxide (22-30) mmol/L BUN (9-20) mg/dL Creatinine (0.66-1.25) mg/dL Glucose (74-99) mg/dL POC Glucose (mg/dL) 247 H 233 H (75-99) mg/dL Phosphorus (2.5-4.5) mg/dL Total Bilirubin (0.2-1.3) mg/dL Total Protein (6.3-8.2) g/dL Albumin (3.5-5.0) g/dL PTH Intact (14.0-72.0) pg/mL 02/04/18 02/04/18 02/04/18 Range/Units 04:30 07:06 11:33 WBC (3.8-10.6) k/uL RBC (4.30-5.90) m/uL Hgb (13.0-17.5) gm/dL Hct (39.0-53.0) % Sodium 133 L (137-145) mmol/L Chloride 94 L (98-107) mmol/L Carbon Dioxide 21 L (22-30) mmol/L BUN 77 H (9-20) mg/dL Creatinine 3.60 H (0.66-1.25) mg/dL Glucose 205 H (74-99) mg/dL POC Glucose (mg/dL) 208 H 170 H (75-99) mg/dL Phosphorus 6.8 H (2.5-4.5) mg/dL Total Bilirubin 1.4 H (0.2-1.3) mg/dL Total Protein 5.8 L (6.3-8.2) g/dL Albumin 3.4 L (3.5-5.0) g/dL PTH Intact (14.0-72.0) pg/mL 02/04/18 Range/Units 12:32 WBC (3.8-10.6) k/uL RBC (4.30-5.90) m/uL Hgb (13.0-17.5) gm/dL Hct (39.0-53.0) % Sodium (137-145) mmol/L Chloride (98-107) mmol/L Carbon Dioxide (22-30) mmol/L BUN (9-20) mg/dL Creatinine (0.66-1.25) mg/dL Glucose (74-99) mg/dL POC Glucose (mg/dL) 140 H (75-99) mg/dL Phosphorus (2.5-4.5) mg/dL Total Bilirubin (0.2-1.3) mg/dL Total Protein (6.3-8.2) g/dL Albumin (3.5-5.0) g/dL PTH Intact (14.0-72.0) pg/mL Assessment and Plan Plan: 1. Severe mitral regurgitation and CAD with 2 vessel critical stenosis s/p CABG , and mitral valve repair, Dr. Spicer from cardiovascular surgery. Cardiology is following. Dr. Vides is covering for intensive care management. extubated. Continue Plavix 75 mg daily, aspirin 325 mg daily, Lipitor 40 mg daily. 2. Diabetes mellitus type 2 previous oral medications have been discontinued mainly Glucotrol and metformin, insulin drip to be discontinued. NovoLog 5 units with each meal and scale along with Levemir 12 units twice daily. 3. New onset atrial fibrillation, paroxysmal, currently on oral amiodarone and metoprolol tartrate 12.5 mg twice daily 4. Acute kidney injury with CKD stage II with baseline creatinine 1.01, continue to monitor. Patient will need to follow-up with nephrology as an outpatient. 5. Hyperphosphatemia secondary to acute kidney injury. PhosLo added. Parathyroid hormone intact ordered. 6. CAD with previous PCI and stent placement with recent cardiac cath [address] Reynolds found to have 60-70% stenosis involving left circumflex AV groove circumflex ostial portion, and RCA 80% stenosis mid RCA, EF 50-55% left ventricle end-diastolic pressure 14 severe mitral regurgitation. 7. BPH without urinary tract symptomatology. Continue Flomax or 0.8 mg at bedtime daily. Monitor for urinary retention. 8. Mild intermittent asthma without any current exacerbation with COPD and when necessary nebulizer, incentive spirometry, 9. Hypertensive cardiovascular disease. Patient on Lopressor. 10. History of skin cancer 11. Osteoarthritis, generalized. 12. Hyperlipidemia on Lipitor 40 mg daily GI prophylaxis DVT prophylaxis Discharge plan: Inpatient rehab Impression and plan of care have been directed as dictated by the signing physician. Zoya Lenz nurse practitioner acting as scribe for signing physician.
--- NOTE | 2018-02-05 12:24 | P.PN ---
Subjective Progress Note Date: 02/05/18 This is a 69 HO pleasant gentleman patient of Dr. Cardoso with underlying history of CAD with prior PCI stent placement, hypertension hypertensive cardiovascular disease hyperlipidemia and diabetes mellitus type 2 asthma OR arthritis COPD [facility] and was found on imaging studies secondary to his chest pain new onset atrial fibrillation with RVR and shortness of breath, cardiac cath performed 01/26/2018 showing 80% stenosis of RCA, 70% stenoses of the left circumflex involving the AV groove circumflex ostial portion, severe mitral regurgitation, dilated left ventricle ejection fraction 50-55%. He was transferred to [facility] for mitral valve placement and CABG 2 vessel critical stenosis involving left circumflex and right coronary artery. CABG most likely would be anticipated to be done January 30 He was seen at [facility] by , for pulmonary clearance, pertinent laboratories creatinine 1.01 hemoglobin 12.4 TSH 0.93 hemoglobin A1c not done,. Patient currently is on basal bolus Levemir and premeal coverage, instead of home oral medication, continue on Januvia 100 mg at bedtime, cardiology to see, Dr. Marte for consult and consult to Dr. Spicer cardiothoracic, Dr. Salas cardiology. He should maintain IV heparin 01/29: Patient is followed by Dr. Marte and Dr. VC Fry. Patient is scheduled for coronary artery bypass surgery and mitral valve replacement or repair on Friday. Blood sugars are running 156-193. Additional 2units of Novolog added premeal until surgery. Patient states his blood sugars are usually 100-130 at home. 01/30: Patient is going for surgery. 01/31 Patient is postoperative day 1 with mitral valve repair, coronary artery bypass grafting X2. Patient examined bed side. Appears tired. Complains of shortness of breath intermittently. Currently on 2 L of oxygen. Blood pressure continues to drop to systolic in low 80. Initiated on norepinephrine added low -dose. Chest x-ray suggested worsening vascular congestion and pleural effusion. Received 1 dose 80 mg IV Lasix today [place] catheter removed today. Patient is extubated since this morning. 02/01 Patient has increased cough and congestion, on 6 L nasal cannula. CXR concerning for cngestion and pleural effusion. on lasix drip. Lantus increased to 15 units bedtime to decrease insulin requirement. Continue trodjenta 5 mg po daily while in hospital. COntinue insulin drip, plan to switich to sliding scale if not much requirement on drip. Continue metoprolol 25 mg op BID 02/02: Patient has been evaluated by Dr. Diego and may be a candidate for inpatient. Primacor has been discontinued. Patient is currently on dopamine, insulin drip and Lasix drip. Epicardial wires and chest tube out today. Blood sugars are running between 101 and 174. White count has jumped to 19.7 and renal function is worsening with BUN 49 creatinine 3.06. The patient states he did eat his breakfast this morning. 02/03: Renal function continues to worsen with BUN 63 and creatinine 3.70 and phosphorus level continues to rise currently at 6.8. PhosLo will be added. Parathyroid hormone intact will be ordered. Consult with nephrology was added by pulmonary medicine but this was subsequently canceled. Regarding his blood sugars, insulin drip will be discontinued and Levemir will be increased to 20 units at bedtime. Patient is also on dopamine and insulin drips. Lasix drip was discontinued and patient switched to IV Lasix. tle. 02/04: 02/04: Patient is now off dopamine. Insulins will be adjusted to NovoLog 5 units with meals and Levemir 12 units twice daily and insulin drip will be discontinued. Ensure will be started as patient is eating very little. Repeat BUN 77 creatinine 3.60. Parathyroid intact is 114 and patient will need follow- up with nephrology as an outpatient. 02/05: Blood sugars are elevated and his morning 70/30 insulin will be increased to 23 units and evening to 20 units. Scheduled NovoLog will be increased to 8 units with meals. Patient ate about 75% of his dinner last night and 25% of his breakfast. He is taking some Ensure. Patient to be transferred to [facility] today. Objective - Vital Signs Vital signs: Vital Signs Temp 97.8 F 02/05/18 08:00 Pulse 83 02/05/18 08:00 Resp 20 02/05/18 08:00 BP 120/87 02/05/18 08:00 Pulse Ox 97 02/05/18 08:00 Intake & Output 02/04/18 02/05/18 02/05/18 18:59 06:59 18:59 Intake Total 661 240 Output Total 1295 175 Balance -634 65 Weight 109 kg Intake: IV 211 0.9NS Pressure Bags 51 Lactated Ringers 1,000 ml 160 @ 20 mls/hr IV .Q24H [facility] Rx#:[id number] Oral 450 240 Output: Urine 1295 175 Other: Voiding Method Indwelling Catheter Indwelling Catheter # Voids 1 1 1 ABP, PAP, CO, CI - Last Documented Arterial Blood Pressure 91/32 Pulmonary Artery Pressure 35/18 Cardiac Output 4.8 Cardiac Index 2.9 - Exam General appearance: cooperative, no acute distress,appear sleepy - EENT Eyes: anicteric sclerae, EOMI, PERRLA, dentition normal, normal appearance ENT: NA/AT, normal oropharynx - Neck Neck: no lymphadenopathy, normal ROM, no other, no rigidity, no stridor, no thyromegaly - Respiratory Respiratory: bilateral: diminished rales, rhonchi at bases,Mediastinal and left pleural chest tubes in place to low continuous wall suction. - Cardiovascular Rhythm: regular Heart sounds: normal: S1, S2 Abnormal Heart Sounds: no systolic murmur, no diastolic murmur, no rub, no S3 Gallop, no S4 Gallop, no click, no other - Gastrointestinal General gastrointestinal: normal bowel sounds, soft - Integumentary Integumentary: normal, normal turgor - Neurologic Neurologic: CNII-XII intact - Musculoskeletal Musculoskeletal: strength equal bilaterally - Psychiatric Psychiatric: A&O x's 3, appropriate affect, intact judgment & insight - Labs CBC & Chem 7: 02/05/18 04:29 02/05/18 04:29 Labs: Abnormal Lab Results - Last 24 Hours (Table) 02/04/18 02/04/18 02/04/18 Range/Units 11:33 12:32 21:23 WBC (3.8-10.6) k/uL RBC (4.30-5.90) m/uL Hgb (13.0-17.5) gm/dL Hct (39.0-53.0) % Neutrophils # (1.3-7.7) k/uL Lymphocytes # (1.0-4.8) k/uL Monocytes # (0-1.0) k/uL Sodium (137-145) mmol/L Chloride (98-107) mmol/L BUN (9-20) mg/dL Creatinine (0.66-1.25) mg/dL Glucose (74-99) mg/dL POC Glucose (mg/dL) 170 H 140 H 282 H (75-99) mg/dL Phosphorus (2.5-4.5) mg/dL Total Bilirubin (0.2-1.3) mg/dL Total Protein (6.3-8.2) g/dL 02/05/18 02/05/18 02/05/18 Range/Units 04:29 04:29 07:29 WBC 11.8 H (3.8-10.6) k/uL RBC 3.49 L (4.30-5.90) m/uL Hgb 9.7 L (13.0-17.5) gm/dL Hct 30.5 L (39.0-53.0) % Neutrophils # 9.2 H (1.3-7.7) k/uL Lymphocytes # 0.7 L (1.0-4.8) k/uL Monocytes # 1.4 H (0-1.0) k/uL Sodium 133 L (137-145) mmol/L Chloride 92 L (98-107) mmol/L BUN 86 H* (9-20) mg/dL Creatinine 3.40 H (0.66-1.25) mg/dL Glucose 139 H (74-99) mg/dL POC Glucose (mg/dL) 157 H (75-99) mg/dL Phosphorus 6.2 H (2.5-4.5) mg/dL Total Bilirubin 1.6 H (0.2-1.3) mg/dL Total Protein 6.0 L (6.3-8.2) g/dL Assessment and Plan Plan: 1. Severe mitral regurgitation and CAD with 2 vessel critical stenosis s/p CABG , and mitral valve repair, Dr. Spicer from cardiovascular surgery. Cardiology is following. Dr. Vides is covering for intensive care management. extubated. Continue Plavix 75 mg daily, aspirin 325 mg daily, Lipitor 40 mg daily. 2. Diabetes mellitus type 2 previous oral medications have been discontinued mainly Glucotrol and metformin, insulin drip to be discontinued. NovoLog 8 units with each meal and scale along with Levemir 23 units in the morning and 20 units at bedtime. 3. New onset atrial fibrillation, paroxysmal, currently on oral amiodarone and metoprolol tartrate 12.5 mg twice daily 4. Acute kidney injury with CKD stage II with baseline creatinine 1.01, continue to monitor. Patient will need to follow-up with nephrology as an outpatient. 5. Hyperphosphatemia secondary to acute kidney injury. PhosLo added. Parathyroid hormone intact ordered. 6. CAD with previous PCI and stent placement with recent cardiac cath [address] Reynolds found to have 60-70% stenosis involving left circumflex AV groove circumflex ostial portion, and RCA 80% stenosis mid RCA, EF 50-55% left ventricle end-diastolic pressure 14 severe mitral regurgitation. 7. BPH without urinary tract symptomatology. Continue Flomax or 0.8 mg at bedtime daily. Monitor for urinary retention. 8. Mild intermittent asthma without any current exacerbation with COPD and when necessary nebulizer, incentive spirometry, 9. Hypertensive cardiovascular disease. Patient on Lopressor. 10. History of skin cancer 11. Osteoarthritis, generalized. 12. Hyperlipidemia on Lipitor 40 mg daily GI prophylaxis DVT prophylaxis Discharge plan: Inpatient rehab Impression and plan of care have been directed as dictated by the signing physician. Zoya Lenz nurse practitioner acting as scribe for signing physician.
[2018-02-05] MEDS: METOCLOPRAMIDE 5 MG TAB PO SCH ×2 (12:51→17:17)
--- NOTE | 2018-02-05 13:05 | P.PN ---
Subjective Progress Note Date: 02/05/18 Principal diagnosis: ASCAD HPI: Bird Maria~is a 77 y.o.~male~~being seen examined and evaluated today for consultation. This patient was admitted to the [facility] on 01/21/18-after coming in with complaints of dyspnea with no relief from his inhaler and having significant chest pressure. Patient was found to be in A. fib with RVR and was started on a heparin drip. Patient did have an echocardiogram which revealed an EF of 55% with severe mitral regurg is RVSP P was 53 mmHg. He also had a Karlee scan stress test that was also abnormal and a PATTIE with heart catheter, please see those notes for details. Currently the patient was transfered to [facility] on 01/27/18 for a CABG and mitral valve replacement. Upon examination the patient's resting up in bed on room air. He denies any shortness of breath cough or congestion at this time. He denies any smoking history however did state that he did chew tobacco on occasion. He denies any episodes of snoring however states that his sleep each night is very restless and he wakes up a minimum of 6 times per night. The patient has never had a workup for obstructive sleep apnea. Patient also states that he has had 2 previous surgeries 1 on his knee and shoulders and had no problems with anesthesiology, or waking up from surgery. Education has been provided to the patient on the extent of the surgery as well as education on mechanical ventilation intubation and extubation with possible best case scenario outcomes and worst-case scenario comes. Patient verbalizes understanding. Interval History: 01/29/18- patient is being seen examined and evaluated today on rounds. He is resting up in bed on room air. CT is feeling well. Has been ambulating in the hallway. Has been utilizing his incentive spirometer and pulling volumes of approximately 1750 arousals. He denies any cough or congestion at this time. Patient is planned for a CABG tomorrow with cardiothoracic surgery. Preop workup has been completed. He is afebrile no further complaints. All labs and reports have been reviewed. 01/30/2018: Patient seen and examined in the intensive care unit with nursing staff at bedside. The patient has returned from CABG and valve replacement. The patient is on full ventilator support. Ventilator has been adjusted and ABG reviewed. No current issues per nursing staff. 5/12-02/01/[address] АННА Smith notes 02/02/18- patient is being seen examined and evaluated today in the intensive care unit. Patient has been slightly hypotensive and his Primacor has been weaned off off, dopamine has been decreased as well per cardiothoracic services. He continues on insulin drip per protocol. Urine output has been 50- 60 miles per hour. He continues on 4 L of supplemental oxygen via nasal cannula. Does complain of some shortness of breath with exertion and activity. Denies any cough or congestion. He continues to have chest tubes in place to mediastinal and one left pleural itch chest tube did produce 50-70 miles overnight. Patient has been tolerating his clear liquid diet about 75% this morning. He did not need any BiPAP overnight. He continues to have epicardial pacer in VVI mode. He is afebrile no further complaints. 02/03/18- patient is being seen examined and evaluated today on rounds. Patient is resting up in bed on supplemental oxygen. He continues on Lasix drip insulin and dopamine. Patient has noted to have a BUN of 63, his Creatinine is increased to 3.7. Nephrology will be consulted. Chest x-ray was reviewed and does show some progressive pulmonary edema with small right-sided pleural effusion as well as cardiogenic fluid overload. Patient's blood pressure is stable. Per the nursing staff the patient may undergo his chest chest tube removal today. He is hemodynamically stable, no further complaints. Using his incentive spirometer. 02/04/18- patient is being seen examined and evaluated today on rounds. He remains in the intensive care unit. His BUN today is 77 g 3.6, nephrology was consulted yesterday and was subsequently canceled per the admitting team. Chest x-ray was reviewed and does show some improvement and CHF and improvement in the right pleural effusion. Patient was taken off Lasix drip and switched to IV push Lasix. His chest tube was removed yesterday. His dopamine is currently on hold. He is hemodynamically stable. 02/05/2018: Patient seen and examined. Patient has been transferred from the intensive care unit. His BUN today is 83 and creatinine is 3.4. The patient states he is having more pain today. He is currently sitting up in the chair. He states that he has had urinary retention and had to be straight cath this morning. He does have intermittent shortness of breath but states it is improving. Objective - Vital Signs Vital signs: Vital Signs Temp 97.8 F 02/05/18 08:00 Pulse 98 02/05/18 11:27 Resp 18 02/05/18 11:00 BP 94/58 02/05/18 11:00 Pulse Ox 98 02/05/18 11:00 Intake & Output 02/04/18 02/05/18 02/05/18 18:59 06:59 18:59 Intake Total 661 240 330 Output Total 8411 261 8962 Balance -634 65 -1070 Weight 109 kg Intake: IV 211 0.9NS Pressure Bags 51 Lactated Ringers 1,000 ml 160 @ 20 mls/hr IV .Q24H [facility] Rx#:[id number] Oral 450 240 330 Output: Urine 0253 091 8913 Other: Voiding Method Indwelling Catheter Indwelling Catheter # Voids 1 1 0 ABP, PAP, CO, CI - Last Documented Arterial Blood Pressure 91/32 Pulmonary Artery Pressure 35/18 Cardiac Output 4.8 Cardiac Index 2.9 - Exam CONSTITUTIONAL: Patient is seen in no acute distress HEENT: Head is normocephalic, atraumatic. Pupils are equal, conjunctiva clear. Neck is supple, trachea is midline. No JVD. RESPIRATORY: ~Lungs clear to auscultation. No wheezes, rales or rhonchi appreciated. Respirations are even and unlabored. Bases diminished bilaterally CARDIOVASCULAR: ~Heart is irregular rate and rhythm. S1 and S2 are heard. No murmur. [address] GASTROINTESTINAL: ~Abdomen is soft, nontender, nondistended. Bowel sounds are positive. EXTREMITIES: ~No lower extremity edema is noted. Pedal pulses are palpable bilaterally. NEUROLOGICAL: ~Patient is alert and oriented 3. Speech is clear and interactive. No tremor is noted. - Labs CBC & Chem 7: 02/05/18 04:29 02/05/18 04:29 Labs: Abnormal Lab Results - Last 24 Hours (Table) 02/04/18 02/05/18 02/05/18 Range/Units 21:23 04:29 04:29 WBC 11.8 H (3.8-10.6) k/uL RBC 3.49 L (4.30-5.90) m/uL Hgb 9.7 L (13.0-17.5) gm/dL Hct 30.5 L (39.0-53.0) % Neutrophils # 9.2 H (1.3-7.7) k/uL Lymphocytes # 0.7 L (1.0-4.8) k/uL Monocytes # 1.4 H (0-1.0) k/uL Sodium 133 L (137-145) mmol/L Chloride 92 L (98-107) mmol/L BUN 86 H* (9-20) mg/dL Creatinine 3.40 H (0.66-1.25) mg/dL Glucose 139 H (74-99) mg/dL POC Glucose (mg/dL) 282 H (75-99) mg/dL Phosphorus 6.2 H (2.5-4.5) mg/dL Total Bilirubin 1.6 H (0.2-1.3) mg/dL Total Protein 6.0 L (6.3-8.2) g/dL 02/05/18 02/05/18 Range/Units 07:29 11:46 WBC (3.8-10.6) k/uL RBC (4.30-5.90) m/uL Hgb (13.0-17.5) gm/dL Hct (39.0-53.0) % Neutrophils # (1.3-7.7) k/uL Lymphocytes # (1.0-4.8) k/uL Monocytes # (0-1.0) k/uL Sodium (137-145) mmol/L Chloride (98-107) mmol/L BUN (9-20) mg/dL Creatinine (0.66-1.25) mg/dL Glucose (74-99) mg/dL POC Glucose (mg/dL) 157 H 113 H (75-99) mg/dL Phosphorus (2.5-4.5) mg/dL Total Bilirubin (0.2-1.3) mg/dL Total Protein (6.3-8.2) g/dL Assessment and Plan Assessment: Assessment: Chest pain Severe mitral regurgitation, s/p MVR ASCAD, s/p CABG 80-90% stenosis of his right coronary artery 60-70% stenosis of the AV circumflex COPD Possible GHULAM Diabetes mellitus type 2 Hyperlipidemia Plan: s/p CABG Medications have been reviewed and will be continued as ordered. Consult to nephrology canceled per admitting team Swathi Borrero reviewed from [facility] reviewed, suggestive of restrictive lung disease, however, without lung volumes and full PFT cannot definitively diagnose. Monitor I & O's Outpatient PFT and PSG recommended. Incentive spirometry and pulmonary hygiene. Supplemental oxygen to maintain oxygen saturations greater than 90% if needed. GI and DVT prophylaxis. Patient will also benefit from an outpatient PSG once medically stable and discharged from the hospital. Patient being evaluated for inpatient rehab, discharge planning We will continue to monitor labs/results and adjust treatment as necessary.
[2018-02-05] MEDS: ASPIRIN 81 MG PO SCH (14:56)
[2018-02-05] MEDS: FUROSEMIDE 40 MG TAB PO SCH (14:56)
[2018-02-05] MEDS: FAMOTIDINE 20 MG TAB PO SCH (14:56)
[2018-02-05] MEDS: ISOSORBIDE MONONITRATE ER 30 MG TAB.ER.24H PO SCH (14:56)
[2018-02-05] MEDS: METOPROLOL SUCCINATE (ER) 50 MG TAB.ER.24H PO SCH (14:58)
[2018-02-05] MEDS: NYSTATIN 100,000 UNIT/ML SUSP 500,000 UNIT/5 ML CUP PO SCH (14:58)
[2018-02-05] MEDS: MUPIROCIN 2% OINT 22 GM TUBE NASAL SCH ×2 (14:58→21:19)
[2018-02-05 17:02] LABS: Glucose,Whole Blood 145 mg/dL (75-99)
--- NOTE | 2018-02-05 18:23 | P.PN ---
Subjective Progress Note Date: 02/05/18 Principal diagnosis: Status post CABG and also mitral valve replacement This is a 77-year-old gentleman is admitted to the hospital for bypass surgery and also mitral valve repair. Postoperative course was completely to be acute renal failure. His creatinine is showing some improvement. His urine output has increased. Patient patient seemed to be much more stable. Discussed the case with the nurses and reviewed the chart. Patient is being transferred to telemetry unit. No arrhythmias are detected. Patient is on amiodarone Objective - Vital Signs Vital signs: Vital Signs Temp 97.8 F 02/05/18 08:00 Pulse 93 02/05/18 16:46 Resp 22 02/05/18 15:47 BP 94/58 02/05/18 11:00 Pulse Ox 98 02/05/18 11:00 Intake & Output 02/04/18 02/05/18 02/05/18 18:59 06:59 18:59 Intake Total 661 240 550 Output Total 7860 263 0680 Balance -634 65 -1450 Weight 109 kg 109 kg Intake: IV 211 0.9NS Pressure Bags 51 Lactated Ringers 1,000 ml 160 @ 20 mls/hr IV .Q24H [facility] Rx#:[id number] Oral 450 240 550 Output: Urine 4739 934 3101 Straight 600 Other: Voiding Method Indwelling Catheter Indwelling Catheter # Voids 1 1 0 ABP, PAP, CO, CI - Last Documented Arterial Blood Pressure 91/32 Pulmonary Artery Pressure 35/18 Cardiac Output 4.8 Cardiac Index 2.9 - Exam GENERAL EXAM: Patient is alert and oriented and in mild distress and seemed to be nauseated HEENT: Normocephalic. Normal reaction of pupils, equal size, normal range of extraocular motion. No erythema or exudates in the throat. NECK: No masses, no nuchal rigidity. CHEST: Postsurgical. LUNGS: Diminished breath sounds at bases HEART: Distant heart sounds ABDOMEN: Deferred SKIN: No rashes CENTRAL NERVOUS SYSTEM: No focal deficits. EXTREMITIES: No cyanosis, clubbing or edema. - Labs CBC & Chem 7: 02/05/18 04:29 02/05/18 04:29 Labs: Abnormal Lab Results - Last 24 Hours (Table) 02/04/18 02/05/18 02/05/18 Range/Units 21:23 04:29 04:29 WBC 11.8 H (3.8-10.6) k/uL RBC 3.49 L (4.30-5.90) m/uL Hgb 9.7 L (13.0-17.5) gm/dL Hct 30.5 L (39.0-53.0) % Neutrophils # 9.2 H (1.3-7.7) k/uL Lymphocytes # 0.7 L (1.0-4.8) k/uL Monocytes # 1.4 H (0-1.0) k/uL Sodium 133 L (137-145) mmol/L Chloride 92 L (98-107) mmol/L BUN 86 H* (9-20) mg/dL Creatinine 3.40 H (0.66-1.25) mg/dL Glucose 139 H (74-99) mg/dL POC Glucose (mg/dL) 282 H (75-99) mg/dL Phosphorus 6.2 H (2.5-4.5) mg/dL Total Bilirubin 1.6 H (0.2-1.3) mg/dL Total Protein 6.0 L (6.3-8.2) g/dL 02/05/18 02/05/18 02/05/18 Range/Units 07:29 11:46 17:01 WBC (3.8-10.6) k/uL RBC (4.30-5.90) m/uL Hgb (13.0-17.5) gm/dL Hct (39.0-53.0) % Neutrophils # (1.3-7.7) k/uL Lymphocytes # (1.0-4.8) k/uL Monocytes # (0-1.0) k/uL Sodium (137-145) mmol/L Chloride (98-107) mmol/L BUN (9-20) mg/dL Creatinine (0.66-1.25) mg/dL Glucose (74-99) mg/dL POC Glucose (mg/dL) 157 H 113 H 145 H (75-99) mg/dL Phosphorus (2.5-4.5) mg/dL Total Bilirubin (0.2-1.3) mg/dL Total Protein (6.3-8.2) g/dL Assessment and Plan (1) H/O coronary artery bypass surgery Current Visit: Yes Status: Acute Code(s): Z95.1 - PRESENCE OF AORTOCORONARY BYPASS GRAFT SNOMED Code(s): 052346038 (2) History of mitral valve repair Current Visit: Yes Status: Acute Code(s): Z98.890 - OTHER SPECIFIED POSTPROCEDURAL STATES SNOMED Code(s): 528434864 (3) COPD (chronic obstructive pulmonary disease) Current Visit: Yes Status: Chronic Code(s): J44.9 - CHRONIC OBSTRUCTIVE PULMONARY DISEASE, UNSPECIFIED SNOMED Code(s): 38270394 (4) Diabetes mellitus type 2 in obese Current Visit: Yes Status: Chronic Code(s): E11.69 - TYPE 2 DIABETES MELLITUS WITH OTHER SPECIFIED COMPLICATION; E66.9 - OBESITY, UNSPECIFIED SNOMED Code(s): 81245959 (5) Hyperlipidemia Current Visit: Yes Status: Chronic Code(s): E78.5 - HYPERLIPIDEMIA, UNSPECIFIED SNOMED Code(s): 99413483 (6) Acute kidney injury Current Visit: Yes Status: Acute Code(s): N17.9 - ACUTE KIDNEY FAILURE, UNSPECIFIED SNOMED Code(s): 85334143 Plan: Patient renal function has shown improvement. . Urine output remained stable. No arrhythmias are noted. Patient is being transferred to telemetry unit. Follow renal function closely. Incentive spirometry and increase activity as tolerated.
[2018-02-05 21:13] LABS: Glucose,Whole Blood 142 mg/dL (75-99)
[2018-02-05] MEDS: LINAGLIPTIN 5 MG TABLET PO SCH (21:19)
[2018-02-05] MEDS: SENNOSIDES-DOCUSATE SODIUM 1 EACH TAB PO SCH (21:23)
[2018-02-06 02:07] LABS: Glucose,Whole Blood 111 mg/dL (75-99)
[2018-02-06] MEDS: HYDROcodone/APAP 7.5-325MG 1 EACH TAB PO PRN ×3 (02:57→19:59)
[2018-02-06 06:12] LABS: HCT 29.7 % (39.0-53.0); HGB 9.6 gm/dL (13.0-17.5); MCH 28.6 pg (25.0-35.0); MCHC 32.2 g/dL (31.0-37.0); MCV 88.9 fL (80.0-100.0); Platelet Count 284 k/uL (150-450); RBC 3.34 m/uL (4.30-5.90); RDW 15.4 % (11.5-15.5); WBC 15.4 k/uL (3.8-10.6)
[2018-02-06 06:25] LABS: Albumin 3.4 g/dL (3.5-5.0); Calcium 8.8 mg/dL (8.4-10.2); Magnesium 2.4 mg/dL (1.6-2.3); Potassium 3.7 mmol/L (3.5-5.1); Total Bilirubin 1.6 mg/dL (0.2-1.3); Total Protein 5.9 g/dL (6.3-8.2)
[2018-02-06] MEDS: CALCIUM ACETATE 667 MG CAP PO SCH ×3 (06:45→18:08)
[2018-02-06 06:56] LABS: Glucose,Whole Blood 125 mg/dL (75-99)
[2018-02-06] MEDS: INSULIN ASPART 100 UNIT/ML 1 ML 10 ML VIAL SQ SCH ×7 (07:00→21:29)
[2018-02-06] MEDS: IPRATROPIUM-ALBUTEROL 3 ML NEB INHALATION SCH ×4 (07:13→19:29)
--- NOTE | 2018-02-06 07:16 | XR ---
EXAMINATION TYPE: XR chest 2V DATE OF EXAM: 02/06/2018 COMPARISON: 02/05/2018 HISTORY: Status post cardiac surgery. TECHNIQUE: Frontal and lateral views of the chest are obtained. FINDINGS: Mild pulmonary vascular congestion and enlarged cardiac silhouette postoperative changes o f the chest and right humerus are similar to the prior. No pneumothorax is seen. Trace right pleural effusion blunts the costophrenic angle. Left costophrenic angle is clearly delineated. Left pleural e ffusion has resolved. IMPRESSION: Persistent mild pulmonary vascular congestion and trace right pleural effusion. Left ple ural effusion has resolved. No pneumothorax.
[2018-02-06] MEDS: PANTOPRAZOLE 40 MG TABLET PO SCH (07:32)
[2018-02-06] MEDS: METOCLOPRAMIDE 5 MG TAB PO SCH ×3 (07:32→18:08)
--- NOTE | 2018-02-06 09:17 | P.PN ---
Subjective Progress Note Date: 02/06/18 Principal diagnosis: Severe mitral regurgitation. 2 vessel coronary artery disease. New onset preoperative paroxysmal atrial fibrillation. 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 POD #7 urgent mitral valve repair with a #30 mm Carbo[employer]ics annular flex band. Clip ligation of the left atrial appendage with a #35 mm AtriClip. Coronary bypass grafting 2 with reverse saphenous vein graft off the aorta to the circumflex artery and the right coronary artery. Endoscopic harvesting of the right greater saphenous vein. Complete left-sided maze procedure using radiofrequency ablation as well as cryoablation. Intraoperative transesophageal echocardiogram. Postoperative hypotension and low urine output requiring combination of IV pressors, lasix, and inotropic support secondary to low cardiac output, intravascular hypovolemia, an unexpected but potential outcome of surgery. Postoperative acute kidney injury, an unexpected but potential outcome of surgery secondary to hemodynamic instability. The patient is currently sitting up in a recliner in no acute distress. Does complain of chest pain when coughing, patient trying not to cough. Denies shortness of breath at rest, does have shortness of breath with ambulation. Denies nausea at this time. Patient is only ambulating a few feet out in the hallway when strongly encouraged physical therapy. Was transferred out of ICU to [address] [place] [address] yesterday. Objective - Vital Signs Vital signs: Vital Signs Temp 98.0 F 02/06/18 04:00 Pulse 78 02/06/18 07:14 Resp 18 02/06/18 04:00 BP 115/63 02/06/18 04:00 Pulse Ox 98 02/06/18 04:00 Intake & Output 02/05/18 02/06/18 02/06/18 18:59 06:59 18:59 Intake Total 550 Output Total 2000 0 Balance -1450 0 Weight 109 kg 100.8 kg Intake: Oral 550 Output: Urine 2000 0 Straight 600 Other: # Voids 0 0 ABP, PAP, CO, CI - Last Documented Arterial Blood Pressure 91/32 Pulmonary Artery Pressure 35/18 Cardiac Output 4.8 Cardiac Index 2.9 - Constitutional General appearance: Present: cooperative, no acute distress, obese - Respiratory Details: Lungs sounds diminished bilaterally. Respirations even, nonlabored. Currently on room air with oxygen saturation 98%. Able to achieve 1750 mL on his incentive spirometry. Weak cough, productive light yellow sputum. - Cardiovascular Details: S1, S2 present. Regular rate and rhythm, sinus rhythm with first-degree AV block on telemetry. Sternum stable. Palpable peripheral pulses bilaterally. No edema present. No calf pain or tenderness noted. Antiembolism stockings, SCDs present. Heart hugger in place with patient demonstrating appropriate use. - Gastrointestinal Gastrointestinal Comment(s): Abdomen soft, round, nontender, nondistended. Active bowel sounds present 4 quadrants. Tolerating diet. Positive flatus, positive small BM Friday. - Genitourinary Genitourinary Comment(s): Patient required straight cath 2. Will receive a second dose Flomax this morning. - Integumentary Integumentary Comment(s): Skin is warm and dry with evidence of good perfusion. Anterior chest incision well approximated and covered with dry intact dressing. Right lower extremity EVH site well approximated. - Neurologic Neurologic: Present: CNII-XII intact - Musculoskeletal Musculoskeletal: Present: gait normal, generalized weakness, strength equal bilaterally - Psychiatric Psychiatric: Present: A&O x's 3, appropriate affect, intact judgment & insight - Allied health notes Allied health notes reviewed: nursing - Labs CBC & Chem 7: 02/06/18 05:39 02/06/18 05:39 Labs: Abnormal Lab Results - Last 24 Hours (Table) 02/05/18 02/05/18 02/05/18 Range/Units 04:29 07:29 11:46 WBC (3.8-10.6) k/uL RBC (4.30-5.90) m/uL Hgb (13.0-17.5) gm/dL Hct (39.0-53.0) % Sodium (137-145) mmol/L Chloride (98-107) mmol/L BUN 86 H* (9-20) mg/dL Creatinine (0.66-1.25) mg/dL Glucose (74-99) mg/dL POC Glucose (mg/dL) 157 H 113 H (75-99) mg/dL Magnesium (1.6-2.3) mg/dL Total Bilirubin (0.2-1.3) mg/dL Total Protein (6.3-8.2) g/dL Albumin (3.5-5.0) g/dL 02/05/18 02/05/18 02/06/18 Range/Units 17:01 21:11 02:05 WBC (3.8-10.6) k/uL RBC (4.30-5.90) m/uL Hgb (13.0-17.5) gm/dL Hct (39.0-53.0) % Sodium (137-145) mmol/L Chloride (98-107) mmol/L BUN (9-20) mg/dL Creatinine (0.66-1.25) mg/dL Glucose (74-99) mg/dL POC Glucose (mg/dL) 145 H 142 H 111 H (75-99) mg/dL Magnesium (1.6-2.3) mg/dL Total Bilirubin (0.2-1.3) mg/dL Total Protein (6.3-8.2) g/dL Albumin (3.5-5.0) g/dL 02/06/18 02/06/18 02/06/18 Range/Units 05:39 05:39 06:30 WBC 15.4 H (3.8-10.6) k/uL RBC 3.34 L (4.30-5.90) m/uL Hgb 9.6 L (13.0-17.5) gm/dL Hct 29.7 L (39.0-53.0) % Sodium 133 L (137-145) mmol/L Chloride 90 L (98-107) mmol/L BUN 87 H* (9-20) mg/dL Creatinine 3.50 H (0.66-1.25) mg/dL Glucose 102 H (74-99) mg/dL POC Glucose (mg/dL) 125 H (75-99) mg/dL Magnesium 2.4 H (1.6-2.3) mg/dL Total Bilirubin 1.6 H (0.2-1.3) mg/dL Total Protein 5.9 L (6.3-8.2) g/dL Albumin 3.4 L (3.5-5.0) g/dL - Imaging and Cardiology Chest x-ray: report reviewed, image reviewed Assessment and Plan (1) Paroxysmal atrial fibrillation Current Visit: Yes Status: Acute Code(s): I48.0 - PAROXYSMAL ATRIAL FIBRILLATION SNOMED Code(s): 709900632 (2) Acute kidney injury Current Visit: Yes Status: Acute Code(s): N17.9 - ACUTE KIDNEY FAILURE, UNSPECIFIED SNOMED Code(s): 29391215 (3) History of skin cancer Current Visit: No Status: Resolved Code(s): Z85.828 - PERSONAL HISTORY OF OTHER MALIGNANT NEOPLASM OF SKIN SNOMED Code(s): 225198311 (4) Asthma Current Visit: Yes Status: Acute Code(s): J45.909 - UNSPECIFIED ASTHMA, UNCOMPLICATED SNOMED Code(s): 839722347 (5) COPD (chronic obstructive pulmonary disease) Current Visit: Yes Status: Chronic Code(s): J44.9 - CHRONIC OBSTRUCTIVE PULMONARY DISEASE, UNSPECIFIED SNOMED Code(s): 11640781 (6) Diabetes mellitus type 2 in obese Current Visit: Yes Status: Chronic Code(s): E11.69 - TYPE 2 DIABETES MELLITUS WITH OTHER SPECIFIED COMPLICATION; E66.9 - OBESITY, UNSPECIFIED SNOMED Code(s): 59182136 (7) Enlarged prostate Current Visit: Yes Status: Chronic Code(s): N40.0 - BENIGN PROSTATIC HYPERPLASIA WITHOUT LOWER URINRY TRACT SYMP SNOMED Code(s): 931144170 (8) Hyperlipidemia Current Visit: Yes Status: Chronic Code(s): E78.5 - HYPERLIPIDEMIA, UNSPECIFIED SNOMED Code(s): 90419438 (9) Hypertension Current Visit: Yes Status: Chronic Code(s): I10 - ESSENTIAL (PRIMARY) HYPERTENSION SNOMED Code(s): 47188504 (10) Personal history of nicotine dependence Current Visit: No Status: Resolved Code(s): Z87.891 - PERSONAL HISTORY OF NICOTINE DEPENDENCE SNOMED Code(s): 62935022 (11) Presence of stent in coronary artery in patient with coronary artery disease Current Visit: Yes Status: Chronic Code(s): I25.10 - ATHSCL HEART DISEASE OF [place] CORONARY ARTERY W/O ANG PCTRS; Z95.5 - PRESENCE OF CORONARY ANGIOPLASTY IMPLANT AND GRAFT SNOMED Code(s): 174287135 (12) Severe mitral regurgitation by prior echocardiogram Current Visit: Yes Status: Chronic Code(s): I34.0 - NONRHEUMATIC MITRAL ( VALVE) INSUFFICIENCY SNOMED Code(s): 52356886 (13) Left carotid stenosis Current Visit: Yes Status: Chronic Code(s): I65.22 - OCCLUSION AND STENOSIS OF LEFT CAROTID ARTERY SNOMED Code(s): 128795283702763 Plan: 1. Continue aspirin, statin, Plavix, hydralazine, heparin subcu, Lopressor. Will increase beta lencho therapy as tolerated. 2. Continue amiodarone for A. fib prophylaxis. 3. Continue Lasix IV push 40 mg every 12 hours. 4. Encourage incentive spirometry use 10 times every hour while awake. Encourage patient to cough. 5. Encourage continued smoking cessation. 6. Increase activity, ambulate as tolerated. PT/OT/cardiac rehab following. 7. Will monitor daily labs and chest x-rays. No need for nephrology consult as we will manage his acute kidney injury. 8. RN instructed to bladder scan after void to measure for residual. Continue Flomax. If he still has issues with retention after second dose of Flomax this morning we will reinsert Narvaez catheter and consult urology. 9. Diabetic management per primary care service. 10. GI/DVT prophylaxis. 11. Discharge planning in progress. Home with home care versus inpatient rehab dependent on patient's ability to ambulate safely. Dr. Diego was consulted and is following. 12. More recommendations as patient progresses. Time with Patient: Greater than 30
[2018-02-06] MEDS: MUPIROCIN 2% OINT 22 GM TUBE NASAL SCH ×2 (09:49→21:30)
[2018-02-06] MEDS: HEPARIN SODIUM,PORCINE 5,000 UNIT/ML 1 ML VIAL SQ SCH ×3 (09:49→23:04)
[2018-02-06] MEDS: FUROSEMIDE 10 MG/ML 4 ML VIAL IV SCH ×2 (09:49→21:29)
[2018-02-06] MEDS: METOPROLOL TARTRATE 12.5 MG TAB PO SCH ×2 (09:50→21:29)
[2018-02-06] MEDS: ATORVASTATIN 40 MG TAB PO SCH (09:50)
[2018-02-06] MEDS: hydrALAZINE HCL 25 MG TAB PO SCH ×2 (09:50→21:29)
[2018-02-06] MEDS: TAMSULOSIN 0.4 MG CAP.ER.24H PO SCH (09:50)
[2018-02-06] MEDS: AMIODARONE 200 MG TAB PO SCH ×2 (09:51→21:29)
[2018-02-06] MEDS: ASPIRIN 325 MG TAB PO SCH (09:51)
[2018-02-06] MEDS: INSULIN DETEMIR 100 UNIT/ML 10 ML VIAL SQ SCH ×2 (09:51→21:29)
[2018-02-06] MEDS: guaiFENesin 600 MG TABLET.ER PO SCH ×2 (09:52→21:30)
[2018-02-06] MEDS: CLOPIDOGREL 75 MG TAB PO SCH (09:53)
--- NOTE | 2018-02-06 10:43 | P.PN ---
Subjective Progress Note Date: 02/06/18 HPI: Bird Maria~is a 77 y.o.~male~~being seen examined and evaluated today for consultation. This patient was admitted to the [facility] on 01/21/18-after coming in with complaints of dyspnea with no relief from his inhaler and having significant chest pressure. Patient was found to be in A. fib with RVR and was started on a heparin drip. Patient did have an echocardiogram which revealed an EF of 55% with severe mitral regurg is RVSP P was 53 mmHg. He also had a Karlee scan stress test that was also abnormal and a PATTIE with heart catheter, please see those notes for details. Currently the patient was transfered to [facility] on 01/27/18 for a CABG and mitral valve replacement. Upon examination the patient's resting up in bed on room air. He denies any shortness of breath cough or congestion at this time. He denies any smoking history however did state that he did chew tobacco on occasion. He denies any episodes of snoring however states that his sleep each night is very restless and he wakes up a minimum of 6 times per night. The patient has never had a workup for obstructive sleep apnea. Patient also states that he has had 2 previous surgeries 1 on his knee and shoulders and had no problems with anesthesiology, or waking up from surgery. Education has been provided to the patient on the extent of the surgery as well as education on mechanical ventilation intubation and extubation with possible best case scenario outcomes and worst-case scenario comes. Patient verbalizes understanding. Interval History: 01/29/18- patient is being seen examined and evaluated today on rounds. He is resting up in bed on room air. CT is feeling well. Has been ambulating in the hallway. Has been utilizing his incentive spirometer and pulling volumes of approximately 1750 arousals. He denies any cough or congestion at this time. Patient is planned for a CABG tomorrow with cardiothoracic surgery. Preop workup has been completed. He is afebrile no further complaints. All labs and reports have been reviewed. 01/30/2018: Patient seen and examined in the intensive care unit with nursing staff at bedside. The patient has returned from CABG and valve replacement. The patient is on full ventilator support. Ventilator has been adjusted and ABG reviewed. No current issues per nursing staff. 01/31-02/01/[address] АННА Smith notes 02/02/18- patient is being seen examined and evaluated today in the intensive care unit. Patient has been slightly hypotensive and his Primacor has been weaned off off, dopamine has been decreased as well per cardiothoracic services. He continues on insulin drip per protocol. Urine output has been 50- 60 miles per hour. He continues on 4 L of supplemental oxygen via nasal cannula. Does complain of some shortness of breath with exertion and activity. Denies any cough or congestion. He continues to have chest tubes in place to mediastinal and one left pleural itch chest tube did produce 50-70 miles overnight. Patient has been tolerating his clear liquid diet about 75% this morning. He did not need any BiPAP overnight. He continues to have epicardial pacer in VVI mode. He is afebrile no further complaints. 02/03/18- patient is being seen examined and evaluated today on rounds. Patient is resting up in bed on supplemental oxygen. He continues on Lasix drip insulin and dopamine. Patient has noted to have a BUN of 63, his Creatinine is increased to 3.7. Nephrology will be consulted. Chest x-ray was reviewed and does show some progressive pulmonary edema with small right-sided pleural effusion as well as cardiogenic fluid overload. Patient's blood pressure is stable. Per the nursing staff the patient may undergo his chest chest tube removal today. He is hemodynamically stable, no further complaints. Using his incentive spirometer. 02/04/18- patient is being seen examined and evaluated today on rounds. He remains in the intensive care unit. His BUN today is 77 g 3.6, nephrology was consulted yesterday and was subsequently canceled per the admitting team. Chest x-ray was reviewed and does show some improvement and CHF and improvement in the right pleural effusion. Patient was taken off Lasix drip and switched to IV push Lasix. His chest tube was removed yesterday. His dopamine is currently on hold. He is hemodynamically stable. 02/05/2018: Patient seen and examined. Patient has been transferred from the intensive care unit. His BUN today is 83 and creatinine is 3.4. The patient states he is having more pain today. He is currently sitting up in the chair. He states that he has had urinary retention and had to be straight cath this morning. He does have intermittent shortness of breath but states it is improving. 02/06/18-patient is being seen examined and evaluated today on the selective care unit. The patient was downgraded from the ICU yesterday. He is resting up in bed on room air. States he does not have any shortness of breath cough or congestion at this time. His BUN today is 87 g 3.5. He continues to have some urinary retention today and had to be straight cath again. The patient also complains of some constipation and is being put on a bowel regimen. He is afebrile no further complaints. Has been working with PT and OT. Objective - Vital Signs Vital signs: Vital Signs Temp 97.0 F L 02/06/18 08:00 Pulse 88 02/06/18 09:23 Resp 16 02/06/18 08:00 BP 111/62 02/06/18 09:23 Pulse Ox 96 02/06/18 09:23 Intake & Output 02/05/18 02/06/18 02/06/18 18:59 06:59 18:59 Intake Total 550 100 Output Total 2000 0 Balance -1450 0 100 Weight 109 kg 100.8 kg Intake: Oral 550 100 Output: Urine 2000 0 Straight 600 Other: Voiding Method Indwelling Catheter # Voids 0 0 ABP, PAP, CO, CI - Last Documented Arterial Blood Pressure 91/32 Pulmonary Artery Pressure 35/18 Cardiac Output 4.8 Cardiac Index 2.9 - Exam CONSTITUTIONAL: Patient is seen in no acute distress HEENT: Head is normocephalic, atraumatic. Pupils are equal, conjunctiva clear. Neck is supple, trachea is midline. No JVD. RESPIRATORY: ~Lungs clear to auscultation. No wheezes, rales or rhonchi appreciated. Respirations are even and unlabored. Bases diminished bilaterally CARDIOVASCULAR: ~Heart is irregular rate and rhythm. S1 and S2 are heard. No murmur. [address] GASTROINTESTINAL: ~Abdomen is soft, nontender, nondistended. Bowel sounds are positive. EXTREMITIES: ~No lower extremity edema is noted. Pedal pulses are palpable bilaterally. NEUROLOGICAL: ~Patient is alert and oriented 3. Speech is clear and interactive. No tremor is noted. - Labs CBC & Chem 7: 02/06/18 05:39 02/06/18 05:39 Labs: Abnormal Lab Results - Last 24 Hours (Table) 02/05/18 02/05/18 02/05/18 Range/Units 04:29 11:46 17:01 WBC (3.8-10.6) k/uL RBC (4.30-5.90) m/uL Hgb (13.0-17.5) gm/dL Hct (39.0-53.0) % Sodium (137-145) mmol/L Chloride (98-107) mmol/L BUN 86 H* (9-20) mg/dL Creatinine (0.66-1.25) mg/dL Glucose (74-99) mg/dL POC Glucose (mg/dL) 113 H 145 H (75-99) mg/dL Magnesium (1.6-2.3) mg/dL Total Bilirubin (0.2-1.3) mg/dL Total Protein (6.3-8.2) g/dL Albumin (3.5-5.0) g/dL 02/05/18 02/06/18 02/06/18 Range/Units 21:11 02:05 05:39 WBC 15.4 H (3.8-10.6) k/uL RBC 3.34 L (4.30-5.90) m/uL Hgb 9.6 L (13.0-17.5) gm/dL Hct 29.7 L (39.0-53.0) % Sodium (137-145) mmol/L Chloride (98-107) mmol/L BUN (9-20) mg/dL Creatinine (0.66-1.25) mg/dL Glucose (74-99) mg/dL POC Glucose (mg/dL) 142 H 111 H (75-99) mg/dL Magnesium (1.6-2.3) mg/dL Total Bilirubin (0.2-1.3) mg/dL Total Protein (6.3-8.2) g/dL Albumin (3.5-5.0) g/dL 02/06/18 02/06/18 Range/Units 05:39 06:30 WBC (3.8-10.6) k/uL RBC (4.30-5.90) m/uL Hgb (13.0-17.5) gm/dL Hct (39.0-53.0) % Sodium 133 L (137-145) mmol/L Chloride 90 L (98-107) mmol/L BUN 87 H* (9-20) mg/dL Creatinine 3.50 H (0.66-1.25) mg/dL Glucose 102 H (74-99) mg/dL POC Glucose (mg/dL) 125 H (75-99) mg/dL Magnesium 2.4 H (1.6-2.3) mg/dL Total Bilirubin 1.6 H (0.2-1.3) mg/dL Total Protein 5.9 L (6.3-8.2) g/dL Albumin 3.4 L (3.5-5.0) g/dL Assessment and Plan Assessment: Assessment: Chest pain Severe mitral regurgitation, s/p MVR ASCAD, s/p CABG 80-90% stenosis of his right coronary artery 60-70% stenosis of the AV circumflex COPD Possible GHULAM Diabetes mellitus type 2 Hyperlipidemia Plan: s/p CABG Medications have been reviewed and will be continued as ordered. Consult to nephrology canceled per attending Swathi Borrero reviewed from [facility] reviewed, suggestive of restrictive lung disease, however, without lung volumes and full PFT cannot definitively diagnose. Hemodynamics per CVTS Monitor I & O's Outpatient PFT and PSG recommended. Incentive spirometry and pulmonary hygiene. Supplemental oxygen to maintain oxygen saturations greater than 90% if needed. GI and DVT prophylaxis. Patient will also benefit from an outpatient PSG once medically stable and discharged from the hospital. Patient being evaluated for inpatient rehab, discharge planning We will continue to monitor labs/results and adjust treatment as necessary. I performed an examination of the patient and discussed their management with the nurse practitioner. I have reviewed the nurse practitioner's note and agree with the documented findings and plan of care.
[2018-02-06] MEDS: MAGNESIUM HYDROXIDE 2,400 MG/10 ML CUP PO PRN ×2 (10:49→23:05)
[2018-02-06 11:32] LABS: Glucose,Whole Blood 123 mg/dL (75-99)
[2018-02-06] MEDS ORDERED: BISACODYL 10 MG SUPP RECTAL STA (11:58)
--- NOTE | 2018-02-06 13:58 | P.PN ---
Subjective Progress Note Date: 02/06/18 This is a 69 HO pleasant gentleman patient of Dr. Cardoso with underlying history of CAD with prior PCI stent placement, hypertension hypertensive cardiovascular disease hyperlipidemia and diabetes mellitus type 2 asthma OR arthritis COPD admitted to [facility] and was found on imaging studies secondary to his chest pain new onset atrial fibrillation with RVR and shortness of breath, cardiac cath performed 01/26/2018 showing 80% stenosis of RCA, 70% stenoses of the left circumflex involving the AV groove circumflex ostial portion, severe mitral regurgitation, dilated left ventricle ejection fraction 50-55%. He was transferred to [facility] for mitral valve placement and CABG 2 vessel critical stenosis involving left circumflex and right coronary artery. CABG most likely would be anticipated to be done January 30 He was seen at [facility] by , for pulmonary clearance, pertinent laboratories creatinine 1.01 hemoglobin 12.4 TSH 0.93 hemoglobin A1c not done,. Patient currently is on basal bolus Levemir and premeal coverage, instead of home oral medication, continue on Januvia 100 mg at bedtime, cardiology to see, Dr. Marte for consult and consult to Dr. Spicer cardiothoracic, Dr. Salas cardiology. He should maintain IV heparin 01/29: Patient is followed by Dr. Marte and Dr. VC Fry. Patient is scheduled for coronary artery bypass surgery and mitral valve replacement or repair on Friday. Blood sugars are running 156-193. Additional 2units of Novolog added premeal until surgery. Patient states his blood sugars are usually 100-130 at home. 01/30: Patient is going for surgery. 01/31 Patient is postoperative day 1 with mitral valve repair, coronary artery bypass grafting X2. Patient examined bed side. Appears tired. Complains of shortness of breath intermittently. Currently on 2 L of oxygen. Blood pressure continues to drop to systolic in low 80. Initiated on norepinephrine added low -dose. Chest x-ray suggested worsening vascular congestion and pleural effusion. Received 1 dose 80 mg IV Lasix today [place] catheter removed today. Patient is extubated since this morning. 02/01 Patient has increased cough and congestion, on 6 L nasal cannula. CXR concerning for cngestion and pleural effusion. on lasix drip. Lantus increased to 15 units bedtime to decrease insulin requirement. Continue trodjenta 5 mg po daily while in hospital. COntinue insulin drip, plan to switich to sliding scale if not much requirement on drip. Continue metoprolol 25 mg op BID 02/02: Patient has been evaluated by Dr. Diego and may be a candidate for inpatient. Primacor has been discontinued. Patient is currently on dopamine, insulin drip and Lasix drip. Epicardial wires and chest tube out today. Blood sugars are running between 101 and 174. White count has jumped to 19.7 and renal function is worsening with BUN 49 creatinine 3.06. The patient states he did eat his breakfast this morning. 02/03: Renal function continues to worsen with BUN 63 and creatinine 3.70 and phosphorus level continues to rise currently at 6.8. PhosLo will be added. Parathyroid hormone intact will be ordered. Consult with nephrology was added by pulmonary medicine but this was subsequently canceled. Regarding his blood sugars, insulin drip will be discontinued and Levemir will be increased to 20 units at bedtime. Patient is also on dopamine and insulin drips. Lasix drip was discontinued and patient switched to IV Lasix. tle. 02/04: 02/04: Patient is now off dopamine. Insulins will be adjusted to NovoLog 5 units with meals and Levemir 12 units twice daily and insulin drip will be discontinued. Ensure will be started as patient is eating very little. Repeat BUN 77 creatinine 3.60. Parathyroid intact is 114 and patient will need follow- up with nephrology as an outpatient. 02/05: Blood sugars are elevated and his morning 70/30 insulin will be increased to 23 units and evening to 20 units. Scheduled NovoLog will be increased to 8 units with meals. Patient ate about 75% of his dinner last night and 25% of his breakfast. He is taking some Ensure. Patient to be transferred to select care today. 02/06: Patient is now seen on the selective care unit. Repeat chest x-ray shows persistent mild pulmonary vascular congestion and trace right pleural effusion. Left pleural effusion has resolved. No pneumothorax. Blood sugars are improved on current regime running between 111 and 145. BUN is 87 and creatinine 3.5. Hemoglobin is 9.6. Patient is working with PT and OT and is easily fatigued. At this point still anticipating discharge to [facility] for inpatient rehab once patient is cleared by cardiothoracic surgery. Objective - Vital Signs Vital signs: Vital Signs Temp 98.0 F 02/06/18 04:00 Pulse 88 02/06/18 09:23 Resp 18 02/06/18 04:00 BP 111/62 02/06/18 09:23 Pulse Ox 96 02/06/18 09:23 Intake & Output 02/05/18 02/06/18 02/06/18 18:59 06:59 18:59 Intake Total 550 100 Output Total 2000 0 Balance -1450 0 100 Weight 109 kg 100.8 kg Intake: Oral 550 100 Output: Urine 2000 0 Straight 600 Other: # Voids 0 0 ABP, PAP, CO, CI - Last Documented Arterial Blood Pressure 91/32 Pulmonary Artery Pressure 35/18 Cardiac Output 4.8 Cardiac Index 2.9 - Exam General appearance: cooperative, no acute distress,appear sleepy - EENT Eyes: anicteric sclerae, EOMI, PERRLA, dentition normal, normal appearance ENT: NA/AT, normal oropharynx - Neck Neck: no lymphadenopathy, normal ROM, no other, no rigidity, no stridor, no thyromegaly - Respiratory Respiratory: bilateral: diminished rales, rhonchi at bases,Mediastinal and left pleural chest tubes in place to low continuous wall suction. - Cardiovascular Rhythm: regular Heart sounds: normal: S1, S2 Abnormal Heart Sounds: no systolic murmur, no diastolic murmur, no rub, no S3 Gallop, no S4 Gallop, no click, no other - Gastrointestinal General gastrointestinal: normal bowel sounds, soft - Integumentary Integumentary: normal, normal turgor - Neurologic Neurologic: CNII-XII intact - Musculoskeletal Musculoskeletal: strength equal bilaterally - Psychiatric Psychiatric: A&O x's 3, appropriate affect, intact judgment & insight - Labs CBC & Chem 7: 02/06/18 05:39 02/06/18 05:39 Labs: Abnormal Lab Results - Last 24 Hours (Table) 02/05/18 02/05/18 02/05/18 Range/Units 04:29 11:46 17:01 WBC (3.8-10.6) k/uL RBC (4.30-5.90) m/uL Hgb (13.0-17.5) gm/dL Hct (39.0-53.0) % Sodium (137-145) mmol/L Chloride (98-107) mmol/L BUN 86 H* (9-20) mg/dL Creatinine (0.66-1.25) mg/dL Glucose (74-99) mg/dL POC Glucose (mg/dL) 113 H 145 H (75-99) mg/dL Magnesium (1.6-2.3) mg/dL Total Bilirubin (0.2-1.3) mg/dL Total Protein (6.3-8.2) g/dL Albumin (3.5-5.0) g/dL 02/05/18 02/06/18 02/06/18 Range/Units 21:11 02:05 05:39 WBC 15.4 H (3.8-10.6) k/uL RBC 3.34 L (4.30-5.90) m/uL Hgb 9.6 L (13.0-17.5) gm/dL Hct 29.7 L (39.0-53.0) % Sodium (137-145) mmol/L Chloride (98-107) mmol/L BUN (9-20) mg/dL Creatinine (0.66-1.25) mg/dL Glucose (74-99) mg/dL POC Glucose (mg/dL) 142 H 111 H (75-99) mg/dL Magnesium (1.6-2.3) mg/dL Total Bilirubin (0.2-1.3) mg/dL Total Protein (6.3-8.2) g/dL Albumin (3.5-5.0) g/dL 02/06/18 02/06/18 Range/Units 05:39 06:30 WBC (3.8-10.6) k/uL RBC (4.30-5.90) m/uL Hgb (13.0-17.5) gm/dL Hct (39.0-53.0) % Sodium 133 L (137-145) mmol/L Chloride 90 L (98-107) mmol/L BUN 87 H* (9-20) mg/dL Creatinine 3.50 H (0.66-1.25) mg/dL Glucose 102 H (74-99) mg/dL POC Glucose (mg/dL) 125 H (75-99) mg/dL Magnesium 2.4 H (1.6-2.3) mg/dL Total Bilirubin 1.6 H (0.2-1.3) mg/dL Total Protein 5.9 L (6.3-8.2) g/dL Albumin 3.4 L (3.5-5.0) g/dL Assessment and Plan Plan: 1. Severe mitral regurgitation and CAD with 2 vessel critical stenosis s/p CABG , and mitral valve repair, Dr. Spicer from cardiovascular surgery. Cardiology is following. Dr. Vides is covering for intensive care management. extubated. Continue Plavix 75 mg daily, aspirin 325 mg daily, Lipitor 40 mg daily. Continue amiodarone 400 mg twice daily 2. Diabetes mellitus type 2 previous oral medications have been discontinued mainly Glucotrol and metformin, insulin drip to be discontinued. NovoLog 8 units with each meal and scale along with Levemir 23 units in the morning and 20 units at bedtime. 3. New onset atrial fibrillation, paroxysmal, currently on oral amiodarone and metoprolol tartrate 12.5 mg twice daily 4. Acute kidney injury with CKD stage II with baseline creatinine 1.01, continue to monitor. Patient will need to follow-up with nephrology as an outpatient. 5. Hyperphosphatemia secondary to acute kidney injury. PhosLo added. Parathyroid hormone intact is elevated. 6. CAD with previous PCI and stent placement with recent cardiac cath [address] Reynolds found to have 60-70% stenosis involving left circumflex AV groove circumflex ostial portion, and RCA 80% stenosis mid RCA, EF 50-55% left ventricle end-diastolic pressure 14 severe mitral regurgitation. 7. BPH without urinary tract symptomatology. Continue Flomax or 0.8 mg at bedtime daily. Monitor for urinary retention. 8. Mild intermittent asthma without any current exacerbation with COPD and when necessary nebulizer, incentive spirometry, 9. Hypertensive cardiovascular disease. Patient on Lopressor. 10. History of skin cancer 11. Osteoarthritis, generalized. 12. Hyperlipidemia on Lipitor 40 mg daily GI prophylaxis DVT prophylaxis Discharge plan: Inpatient rehab Impression and plan of care have been directed as dictated by the signing physician. Zoya Lenz nurse practitioner acting as scribe for signing physician.
--- NOTE | 2018-02-06 16:04 | P.PN ---
Subjective Progress Note Date: 02/06/18 Principal diagnosis: Status post CABG and also mitral valve replacement This is a 77-year-old gentleman is admitted to the hospital for bypass surgery and also mitral valve repair. Postoperative course was completely to be acute renal failure. His creatinine is showing some improvement. His urine output has increased. Patient patient seemed to be much more stable. Discussed the case with the nurses and reviewed the chart. Patient is being transferred to telemetry unit. No arrhythmias are detected. Patient is on amiodarone. 02/06/2018: This patient seemed to be doing clinically well except having difficulty with urination and retention. Patient has to have straight cath. He is also having problems with constipation. His creatinine remains about 3.5. His blood pressure is stable. Denies any chest pain. Doesn't appear to be in acute respiratory distress. Tolerating activity Objective - Vital Signs Vital signs: Vital Signs Temp 97.1 F L 02/06/18 12:00 Pulse 76 02/06/18 15:40 Resp 18 02/06/18 12:00 BP 101/54 02/06/18 12:00 Pulse Ox 97 02/06/18 12:00 Intake & Output 02/05/18 02/06/18 02/06/18 18:59 06:59 18:59 Intake Total 550 100 Output Total 2000 0 Balance -1450 0 100 Weight 109 kg 100.8 kg Intake: Oral 550 100 Output: Urine 2000 0 Straight 600 Other: Voiding Method Indwelling Catheter # Voids 0 0 ABP, PAP, CO, CI - Last Documented Arterial Blood Pressure 91/32 Pulmonary Artery Pressure 35/18 Cardiac Output 4.8 Cardiac Index 2.9 - Exam GENERAL EXAM: Patient is alert and oriented and in mild distress and seemed to be nauseated HEENT: Normocephalic. Normal reaction of pupils, equal size, normal range of extraocular motion. No erythema or exudates in the throat. NECK: No masses, no nuchal rigidity. CHEST: Postsurgical. LUNGS: Diminished breath sounds at bases HEART: Distant heart sounds ABDOMEN: Deferred SKIN: No rashes CENTRAL NERVOUS SYSTEM: No focal deficits. EXTREMITIES: No cyanosis, clubbing or edema. - Labs CBC & Chem 7: 02/06/18 05:39 02/06/18 05:39 Labs: Abnormal Lab Results - Last 24 Hours (Table) 02/05/18 02/05/1818 Range/Units 04:29 17:01 21:11 WBC (3.8-10.6) k/uL RBC (4.30-5.90) m/uL Hgb (13.0-17.5) gm/dL Hct (39.0-53.0) % Sodium (137-145) mmol/L Chloride (98-107) mmol/L BUN 86 H* (9-20) mg/dL Creatinine (0.66-1.25) mg/dL Glucose (74-99) mg/dL POC Glucose (mg/dL) 145 H 142 H (75-99) mg/dL Magnesium (1.6-2.3) mg/dL Total Bilirubin (0.2-1.3) mg/dL Total Protein (6.3-8.2) g/dL Albumin (3.5-5.0) g/dL 02/06/18 02/06/18 02/06/18 Range/Units 02:05 05:39 05:39 WBC 15.4 H (3.8-10.6) k/uL RBC 3.34 L (4.30-5.90) m/uL Hgb 9.6 L (13.0-17.5) gm/dL Hct 29.7 L (39.0-53.0) % Sodium 133 L (137-145) mmol/L Chloride 90 L (98-107) mmol/L BUN 87 H* (9-20) mg/dL Creatinine 3.50 H (0.66-1.25) mg/dL Glucose 102 H (74-99) mg/dL POC Glucose (mg/dL) 111 H (75-99) mg/dL Magnesium 2.4 H (1.6-2.3) mg/dL Total Bilirubin 1.6 H (0.2-1.3) mg/dL Total Protein 5.9 L (6.3-8.2) g/dL Albumin 3.4 L (3.5-5.0) g/dL 02/06/18 02/06/18 Range/Units 06:30 11:31 WBC (3.8-10.6) k/uL RBC (4.30-5.90) m/uL Hgb (13.0-17.5) gm/dL Hct (39.0-53.0) % Sodium (137-145) mmol/L Chloride (98-107) mmol/L BUN (9-20) mg/dL Creatinine (0.66-1.25) mg/dL Glucose (74-99) mg/dL POC Glucose (mg/dL) 125 H 123 H (75-99) mg/dL Magnesium (1.6-2.3) mg/dL Total Bilirubin (0.2-1.3) mg/dL Total Protein (6.3-8.2) g/dL Albumin (3.5-5.0) g/dL Assessment and Plan (1) H/O coronary artery bypass surgery Current Visit: Yes Status: Acute Code(s): Z95.1 - PRESENCE OF AORTOCORONARY BYPASS GRAFT SNOMED Code(s): 596493509 (2) History of mitral valve repair Current Visit: Yes Status: Acute Code(s): Z98.890 - OTHER SPECIFIED POSTPROCEDURAL STATES SNOMED Code(s): 097143246 (3) COPD (chronic obstructive pulmonary disease) Current Visit: Yes Status: Chronic Code(s): J44.9 - CHRONIC OBSTRUCTIVE PULMONARY DISEASE, UNSPECIFIED SNOMED Code(s): 67364885 (4) Diabetes mellitus type 2 in obese Current Visit: Yes Status: Chronic Code(s): E11.69 - TYPE 2 DIABETES MELLITUS WITH OTHER SPECIFIED COMPLICATION; E66.9 - OBESITY, UNSPECIFIED SNOMED Code(s): 29154647 (5) Hyperlipidemia Current Visit: Yes Status: Chronic Code(s): E78.5 - HYPERLIPIDEMIA, UNSPECIFIED SNOMED Code(s): 72384194 (6) Acute kidney injury Current Visit: Yes Status: Acute Code(s): N17.9 - ACUTE KIDNEY FAILURE, UNSPECIFIED SNOMED Code(s): 32178169 Plan: Continue current regimen. Increase activity. Further recommendations depend upon clinical course
[2018-02-06 16:30] LABS: Glucose,Whole Blood 58 mg/dL (75-99)
[2018-02-06 16:51] LABS: Glucose,Whole Blood 69 mg/dL (75-99)
[2018-02-06 17:21] LABS: Glucose,Whole Blood 123 mg/dL (75-99)
--- NOTE | 2018-02-06 17:28 | P.GSCN ---
History of Present Illness Consult date: 02/06/18 Reason for Consult: Urinary retention History of present illness: The patient is a 77-year-old male who experienced chest pain earlier this month and was evaluated and found to have significant mitral valve regurgitation and coronary artery disease. He underwent mitral valve repair with CABG on 2017. His Narvaez catheter was removed yesterday and he was straight cath'd on two occasions. Apparently the first time he was in and out cathed he had over 1300 mL in his bladder. He continued to have difficulty voiding and a Narvaez catheter was inserted this morning and drained approximately 700 mL. Prior to this admission the patient says he was voiding every 2-4 hours during the day and once or twice at night. He has a history of urinary retention which occurred following left knee surgery in 2011 and has taken Flomax since then. He said his urine flow was usually fairly good and he felt that he was voiding completely. The patient has had minimal if any bowel movement since his CABG. Review of Systems - Constitutional Reports fatigue - Cardiovascular Denies shortness of breath - Respiratory Reports pain on inspiration - Gastrointestinal Reports constipation, Denies abdominal pain - Genitourinary Reports as per HPI 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.), COPD , Diabetes Mellitus, Eye Disorder (Cataracts), GI Bleed (History of GI bleed, received blood products.), Hyperlipidemia, Hypertension, Osteoarthritis (OA), Prostate Disorder Additional Past Medical History / Comment(s): New onset of afib since admission to [facility] on 01/21/18 History of Any Multi-Drug Resistant Organisms: None Reported Past Surgical History: Heart Catheterization, Heart Catheterization With Stent, Joint Replacement (Left knee), Orthopedic Surgery (Left shoulder), Tonsillectomy Additional Past Surgical History / Comment(s): Right shoulder surgery, left knee replacement, colonoscopy with polypectomy, skin biopsy, cardiac stents X2 Past Anesthesia/Blood Transfusion Reactions: No Reported Reaction Date of Last Stent Placement:: unknown Past Psychological History: No Psychological Hx Reported Smoking Status: Former smoker (Quit 20 years ago.) Past Alcohol Use History: Rare (Maybe drinks one 6 pack of beer per year. ) Past Drug Use History: None Reported - Past Family History Mother Family Medical History: Asthma, COPD Father History Unknown: Yes (Mother 76 from COPD, and diabetes mellitus type 2, father at 58 secondary to [place], one sister 89 years old, for doctors to them with diabetes mellitus type 2) Family Medical History: Myocardial Infarction ([place]) (Myocardial infarction in his 50s.) Medications and Allergies Home Medications Medication Instructions Recorded Confirmed Type Atorvastatin [Lipitor] 40 mg PO HS 01/27/18 01/27/18 History Benazepril HCl 10 mg PO HS 01/27/18 01/27/18 History Cholecalciferol (Vitamin D3) 2,000 unit PO HS 01/27/18 01/27/18 History [Vitamin D3] Magnesium Oxide [Mag-Ox] 400 mg PO HS 01/27/18 01/27/18 History Metoprolol Succinate (ER) [Toprol 50 mg PO HS 01/27/18 01/27/18 History Xl] Tamsulosin [Flomax] 0.8 mg PO HS 01/27/18 01/27/18 History glipiZIDE/METFORMIN HCL 2 tab PO HS 01/27/18 01/27/18 History [glipiZIDE/METFORMIN HCL 2.5-500 mg] sitaGLIPtin [Januvia] 100 mg PO HS 01/27/18 01/27/18 History Allergies Allergy/AdvReac Type Severity Reaction Status Date / Time No Known Allergies Allergy Verified 01/27/18 23:01 Surgical - Exam Vital Signs Temp Pulse Resp BP Pulse Ox 97.5 F L 79 18 148/72 97 01/27/18 22:11 01/27/18 22:11 01/27/18 22:11 01/27/18 22:11 01/27/18 22:11 - General well developed, well nourished, no distress, obese - Respiratory normal respiratory effort - Abdomen Abdomen: soft, non tender, no organomegaly Hernia: none - Genitourinary normal penis with no external lesions, testicles present, other (Narvaez catheters in place and is draining clear urine) - Rectum Rectum: normal sphincter tone, no hemorrhoids, no masses, other (Prostate is 2+ enlarged smooth and benign in consistency) Results - Labs 02/06/18 05:39 02/06/18 05:39 Abnormal Lab Results - Last 24 Hours (Table) 02/05/18 02/05/18 02/06/18 Range/Units 04:29 21:11 02:05 WBC (3.8-10.6) k/uL RBC (4.30-5.90) m/uL Hgb (13.0-17.5) gm/dL Hct (39.0-53.0) % Sodium (137-145) mmol/L Chloride (98-107) mmol/L BUN 86 H* (9-20) mg/dL Creatinine (0.66-1.25) mg/dL Glucose (74-99) mg/dL POC Glucose (mg/dL) 142 H 111 H (75-99) mg/dL Magnesium (1.6-2.3) mg/dL Total Bilirubin (0.2-1.3) mg/dL Total Protein (6.3-8.2) g/dL Albumin (3.5-5.0) g/dL 02/06/18 02/06/18 02/06/18 Range/Units 05:39 05:39 06:30 WBC 15.4 H (3.8-10.6) k/uL RBC 3.34 L (4.30-5.90) m/uL Hgb 9.6 L (13.0-17.5) gm/dL Hct 29.7 L (39.0-53.0) % Sodium 133 L (137-145) mmol/L Chloride 90 L (98-107) mmol/L BUN 87 H* (9-20) mg/dL Creatinine 3.50 H (0.66-1.25) mg/dL Glucose 102 H (74-99) mg/dL POC Glucose (mg/dL) 125 H (75-99) mg/dL Magnesium 2.4 H (1.6-2.3) mg/dL Total Bilirubin 1.6 H (0.2-1.3) mg/dL Total Protein 5.9 L (6.3-8.2) g/dL Albumin 3.4 L (3.5-5.0) g/dL 02/06/18 02/06/18 02/06/18 Range/Units 11:31 16:25 16:45 WBC (3.8-10.6) k/uL RBC (4.30-5.90) m/uL Hgb (13.0-17.5) gm/dL Hct (39.0-53.0) % Sodium (137-145) mmol/L Chloride (98-107) mmol/L BUN (9-20) mg/dL Creatinine (0.66-1.25) mg/dL Glucose (74-99) mg/dL POC Glucose (mg/dL) 123 H 58 L 69 L (75-99) mg/dL Magnesium (1.6-2.3) mg/dL Total Bilirubin (0.2-1.3) mg/dL Total Protein (6.3-8.2) g/dL Albumin (3.5-5.0) g/dL Diabetes panel 02/05/18 02/06/18 Range/Units 04:29 05:39 Sodium 133 L (137-145) mmol/L Potassium 3.7 (3.5-5.1) mmol/L Chloride 90 L (98-107) mmol/L Carbon Dioxide 27 (22-30) mmol/L BUN 86 H* 87 H* (9-20) mg/dL Creatinine 3.50 H (0.66-1.25) mg/dL Glucose 102 H (74-99) mg/dL Calcium 8.8 (8.4-10.2) mg/dL AST 43 (17-59) U/L ALT 51 (21-72) U/L Alkaline Phosphatase 97 (38-126) U/L Total Protein 5.9 L (6.3-8.2) g/dL Albumin 3.4 L (3.5-5.0) g/dL Calcium panel 02/06/18 Range/Units 05:39 Calcium 8.8 (8.4-10.2) mg/dL Albumin 3.4 L (3.5-5.0) g/dL Pituitary panel 02/05/18 02/06/18 Range/Units 04:29 05:39 Sodium 133 L (137-145) mmol/L Potassium 3.7 (3.5-5.1) mmol/L Chloride 90 L (98-107) mmol/L Carbon Dioxide 27 (22-30) mmol/L BUN 86 H* 87 H* (9-20) mg/dL Creatinine 3.50 H (0.66-1.25) mg/dL Glucose 102 H (74-99) mg/dL Calcium 8.8 (8.4-10.2) mg/dL Adrenal panel 02/05/18 02/06/18 Range/Units 04:29 05:39 Sodium 133 L (137-145) mmol/L Potassium 3.7 (3.5-5.1) mmol/L Chloride 90 L (98-107) mmol/L Carbon Dioxide 27 (22-30) mmol/L BUN 86 H* 87 H* (9-20) mg/dL Creatinine 3.50 H (0.66-1.25) mg/dL Glucose 102 H (74-99) mg/dL Calcium 8.8 (8.4-10.2) mg/dL Total Bilirubin 1.6 H (0.2-1.3) mg/dL AST 43 (17-59) U/L ALT 51 (21-72) U/L Alkaline Phosphatase 97 (38-126) U/L Total Protein 5.9 L (6.3-8.2) g/dL Albumin 3.4 L (3.5-5.0) g/dL Assessment and Plan (1) Postoperative urinary retention Narrative/Plan: The patient's urinary retention may be related to weakness following his cardiac surgery and possibly related to some element of constipation. He does have a history of urinary retention in the past but was able to void following the use of tamsulosin which he has continued. Unfortunately yesterday his bladder was overdistended to 1300 mL prior to drainage with a catheter and this may introduce some element of bladder weakness. I would suggest leaving the patient's catheter in place for an additional 2-3 days prior to another attempt at voiding. When the catheter is removed in the future the patient should be monitored closely so that his bladder is not allowed to distend beyond 400-500 mL. He has seen in the past and can follow up with him. Current Visit: Yes Status: Acute Code(s): N99.89 - OTH POSTPROCEDURAL COMPLICATIONS AND DISORDERS OF SYS; R33.8 - OTHER RETENTION OF URINE SNOMED Code(s): 493236378
[2018-02-06 21:24] LABS: Glucose,Whole Blood 252 mg/dL (75-99)
[2018-02-06] MEDS: SENNOSIDES-DOCUSATE SODIUM 1 EACH TAB PO SCH (21:29)
[2018-02-06] MEDS: LINAGLIPTIN 5 MG TABLET PO SCH (21:29)
[2018-02-07] MEDS: HYDROcodone/APAP 7.5-325MG 1 EACH TAB PO PRN ×5 (00:14→20:10)
[2018-02-07 02:31] LABS: Glucose,Whole Blood 153 mg/dL (75-99)
[2018-02-07 06:31] LABS: HCT 29.7 % (39.0-53.0); HGB 9.3 gm/dL (13.0-17.5); MCHC 31.4 g/dL (31.0-37.0); Mean Platelet Volume 6.7; Platelet Count 309 k/uL (150-450); RBC 3.33 m/uL (4.30-5.90); RDW 15.8 % (11.5-15.5); WBC 14.6 k/uL (3.8-10.6)
[2018-02-07 06:45] LABS: Albumin 3.3 g/dL (3.5-5.0); Calcium 8.5 mg/dL (8.4-10.2); Magnesium 2.6 mg/dL (1.6-2.3); Potassium 3.8 mmol/L (3.5-5.1); Total Bilirubin 1.6 mg/dL (0.2-1.3); Total Protein 5.8 g/dL (6.3-8.2)
[2018-02-07 06:48] LABS: Glucose,Whole Blood 139 mg/dL (75-99)
[2018-02-07] MEDS: METOCLOPRAMIDE 5 MG TAB PO SCH ×3 (06:58→17:57)
[2018-02-07] MEDS: INSULIN ASPART 100 UNIT/ML 1 ML 10 ML VIAL SQ SCH ×7 (06:58→21:29)
[2018-02-07] MEDS: CALCIUM ACETATE 667 MG CAP PO SCH ×3 (06:58→17:57)
[2018-02-07] MEDS: PANTOPRAZOLE 40 MG TABLET PO SCH (06:58)
--- NOTE | 2018-02-07 08:22 | XR ---
EXAMINATION TYPE: XR chest 2V DATE OF EXAM: 02/07/2018 COMPARISON: Prior chest x-ray 02/06/2018 HISTORY: Post cardiac surgery TECHNIQUE: Frontal and lateral views of the chest are obtained. FINDINGS: Findings are similar to prior exam. Patient is post median sternotomy and atrial appendage clipping. Cardiac mediastinal silhouette, pulmonary vascularity and saray are stable. Patchy basilar density persists. No sizable pneumothorax. There are overlying cardiac leads. Interstitium is mildly increased. IMPRESSION: Correlate for mild volume overload, pulmonary venous hypertension and interstitial edema , there may be basilar atelectasis and small effusion, additional follow-up recommended.
--- NOTE | 2018-02-07 08:52 | P.PN ---
Subjective Progress Note Date: 02/07/18 Principal diagnosis: Severe mitral regurgitation. 2 vessel coronary artery disease. New onset preoperative paroxysmal atrial fibrillation. 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 POD #8 urgent mitral valve repair with a #30 mm [employer]bo[employer] annular flex band. Clip ligation of the left atrial appendage with a #35 mm AtriClip. Coronary bypass grafting 2 with reverse saphenous vein graft off the aorta to the circumflex artery and the right coronary artery. Endoscopic harvesting of the right greater saphenous vein. Complete left-sided maze procedure using radiofrequency ablation as well as cryoablation. Intraoperative transesophageal echocardiogram. Postoperative hypotension and low urine output requiring combination of IV pressors, lasix, and inotropic support secondary to low cardiac output, intravascular hypovolemia, an unexpected but potential outcome of surgery. Postoperative acute kidney injury, an unexpected but potential outcome of surgery secondary to hemodynamic instability. Postoperative urinary retention, an unexpected but potential outcome with the patient having a previous history of urinary retention after surgery. The patient is currently sitting up in a recliner in no acute distress. Does complain of chest pain when coughing, patient trying not to cough. Does complain of intermittent shortness of breath which is relieved with application of oxygen via nasal cannula. Denies nausea at this time. Patient is only ambulating a few feet out in the hallway when strongly encouraged physical therapy. Objective - Vital Signs Vital signs: Vital Signs Temp 97 F L 02/07/18 03:26 Pulse 78 02/07/18 05:24 Resp 16 02/07/18 05:24 BP 113/59 02/07/18 05:24 Pulse Ox 100 02/07/18 05:24 Intake & Output 02/06/18 02/07/18 02/07/18 18:59 06:59 18:59 Intake Total 100 Output Total 1000 Balance 100 -1000 Weight 101.4 kg Intake: Oral 100 Output: Urine 1000 Other: Voiding Method Indwelling Catheter Indwelling Catheter # Voids 0 # Bowel Movements 1 ABP, PAP, CO, CI - Last Documented Arterial Blood Pressure 91/32 Pulmonary Artery Pressure 35/18 Cardiac Output 4.8 Cardiac Index 2.9 - Constitutional General appearance: Present: cooperative, no acute distress, obese - Respiratory Details: Lungs sounds diminished bilaterally. Respirations even, nonlabored. Currently on 2 L nasal cannula with oxygen saturation 100%. Able to achieve 4677-0147 mL on his incentive spirometry. Weak cough. - Cardiovascular Details: S1, S2 present. Regular rate and rhythm, sinus rhythm with first-degree AV block on telemetry. Sternum stable. Palpable peripheral pulses bilaterally. No edema present. No calf pain or tenderness noted. Antiembolism stockings, SCDs present. Heart hugger in place with patient demonstrating appropriate use. - Gastrointestinal Gastrointestinal Comment(s): Abdomen soft, round, nontender, nondistended. Active bowel sounds present 4 quadrants. Tolerating diet. Positive flatus, positive small BM last night. - Genitourinary Genitourinary Comment(s): Narvaez catheter reinserted. Urine output 1 L overnight. - Integumentary Integumentary Comment(s): Skin is warm and dry with evidence of good perfusion. Anterior chest incision well approximated and covered with dry intact dressing. Right lower extremity EVH site well approximated. - Neurologic Neurologic: Present: CNII-XII intact - Musculoskeletal Musculoskeletal: Present: generalized weakness, strength equal bilaterally - Psychiatric Psychiatric: Present: A&O x's 3, appropriate affect, intact judgment & insight - Allied health notes Allied health notes reviewed: nursing - Labs CBC & Chem 7: 02/07/18 06:07 02/07/18 06:04 Labs: Abnormal Lab Results - Last 24 Hours (Table) 02/06/18 02/06/18 02/06/18 Range/Units 11:31 16:25 16:45 WBC (3.8-10.6) k/uL RBC (4.30-5.90) m/uL Hgb (13.0-17.5) gm/dL Hct (39.0-53.0) % RDW (11.5-15.5) % Sodium (137-145) mmol/L Chloride (98-107) mmol/L BUN (9-20) mg/dL Creatinine (0.66-1.25) mg/dL Glucose (74-99) mg/dL POC Glucose (mg/dL) 123 H 58 L 69 L (75-99) mg/dL Magnesium (1.6-2.3) mg/dL Total Bilirubin (0.2-1.3) mg/dL Total Protein (6.3-8.2) g/dL Albumin (3.5-5.0) g/dL 02/06/18 02/06/18 02/07/18 Range/Units 17:19 21:11 02:29 WBC (3.8-10.6) k/uL RBC (4.30-5.90) m/uL Hgb (13.0-17.5) gm/dL Hct (39.0-53.0) % RDW (11.5-15.5) % Sodium (137-145) mmol/L Chloride (98-107) mmol/L BUN (9-20) mg/dL Creatinine (0.66-1.25) mg/dL Glucose (74-99) mg/dL POC Glucose (mg/dL) 123 H 252 H 153 H (75-99) mg/dL Magnesium (1.6-2.3) mg/dL Total Bilirubin (0.2-1.3) mg/dL Total Protein (6.3-8.2) g/dL Albumin (3.5-5.0) g/dL 02/07/18 02/07/18 02/07/18 Range/Units 06:04 06:07 06:46 WBC 14.6 H (3.8-10.6) k/uL RBC 3.33 L (4.30-5.90) m/uL Hgb 9.3 L (13.0-17.5) gm/dL Hct 29.7 L (39.0-53.0) % RDW 15.8 H (11.5-15.5) % Sodium 131 L (137-145) mmol/L Chloride 89 L (98-107) mmol/L BUN 90 H* (9-20) mg/dL Creatinine 3.25 H (0.66-1.25) mg/dL Glucose 110 H (74-99) mg/dL POC Glucose (mg/dL) 139 H (75-99) mg/dL Magnesium 2.6 H (1.6-2.3) mg/dL Total Bilirubin 1.6 H (0.2-1.3) mg/dL Total Protein 5.8 L (6.3-8.2) g/dL Albumin 3.3 L (3.5-5.0) g/dL - Imaging and Cardiology Chest x-ray: report reviewed, image reviewed Assessment and Plan (1) Paroxysmal atrial fibrillation Current Visit: Yes Status: Acute Code(s): I48.0 - PAROXYSMAL ATRIAL FIBRILLATION SNOMED Code(s): 943643406 (2) Acute kidney injury Current Visit: Yes Status: Acute Code(s): N17.9 - ACUTE KIDNEY FAILURE, UNSPECIFIED SNOMED Code(s): 52601258 (3) History of skin cancer Current Visit: No Status: Resolved Code(s): Z85.828 - PERSONAL HISTORY OF OTHER MALIGNANT NEOPLASM OF SKIN SNOMED Code(s): 240231215 (4) Asthma Current Visit: Yes Status: Acute Code(s): J45.909 - UNSPECIFIED ASTHMA, UNCOMPLICATED SNOMED Code(s): 130039960 (5) COPD (chronic obstructive pulmonary disease) Current Visit: Yes Status: Chronic Code(s): J44.9 - CHRONIC OBSTRUCTIVE PULMONARY DISEASE, UNSPECIFIED SNOMED Code(s): 39889445 (6) Diabetes mellitus type 2 in obese Current Visit: Yes Status: Chronic Code(s): E11.69 - TYPE 2 DIABETES MELLITUS WITH OTHER SPECIFIED COMPLICATION; E66.9 - OBESITY, UNSPECIFIED SNOMED Code(s): 65767927 (7) Enlarged prostate Current Visit: Yes Status: Chronic Code(s): N40.0 - BENIGN PROSTATIC HYPERPLASIA WITHOUT LOWER URINRY TRACT SYMP SNOMED Code(s): 658163178 (8) Hyperlipidemia Current Visit: Yes Status: Chronic Code(s): E78.5 - HYPERLIPIDEMIA, UNSPECIFIED SNOMED Code(s): 75282687 (9) Hypertension Current Visit: Yes Status: Chronic Code(s): I10 - ESSENTIAL (PRIMARY) HYPERTENSION SNOMED Code(s): 19220405 (10) Personal history of nicotine dependence Current Visit: No Status: Resolved Code(s): Z87.891 - PERSONAL HISTORY OF NICOTINE DEPENDENCE SNOMED Code(s): 63766149 (11) Presence of stent in coronary artery in patient with coronary artery disease Current Visit: Yes Status: Chronic Code(s): I25.10 - ATHSCL HEART DISEASE OF [place] CORONARY ARTERY W/O ANG PCTRS; Z95.5 - PRESENCE OF CORONARY ANGIOPLASTY IMPLANT AND GRAFT SNOMED Code(s): 103894209 (12) Severe mitral regurgitation by prior echocardiogram Current Visit: Yes Status: Chronic Code(s): I34.0 - NONRHEUMATIC MITRAL ( VALVE) INSUFFICIENCY SNOMED Code(s): 84507974 (13) Left carotid stenosis Current Visit: Yes Status: Chronic Code(s): I65.22 - OCCLUSION AND STENOSIS OF LEFT CAROTID ARTERY SNOMED Code(s): 975331977852269 Plan: 1. Continue aspirin, statin, Plavix, hydralazine, heparin subcu, Lopressor. Will increase beta lencho therapy as tolerated. 2. Continue amiodarone for A. fib prophylaxis. Decrease dose to 200 mg twice daily. Will decrease dose to 200 mg daily on February 14 3. Decrease Lasix IV push 40 mg to daily. 4. Encourage incentive spirometry use 10 times every hour while awake. Encourage patient to cough. 5. Encourage continued smoking cessation. 6. Increase activity, ambulate as tolerated. PT/OT/cardiac rehab following. 7. Will monitor daily labs and chest x-rays. No need for nephrology consult as we will manage his acute kidney injury. 8. Continue Flomax. Continue Narvaez catheter for another 2-3 days per urology recommendations. 9. Diabetic management per primary care service. 10. GI/DVT prophylaxis. 11. Discharge planning in progress. Patient will need inpatient rehab at discharge. Dr. Diego was consulted and is following. 12. More recommendations as patient progresses. Time with Patient: Greater than 30
[2018-02-07] MEDS: IPRATROPIUM-ALBUTEROL 3 ML NEB INHALATION SCH ×4 (09:05→20:44)
[2018-02-07] MEDS: METOPROLOL TARTRATE 12.5 MG TAB PO SCH ×2 (09:07→21:35)
[2018-02-07] MEDS: ASPIRIN 325 MG TAB PO SCH (09:07)
[2018-02-07] MEDS: ATORVASTATIN 40 MG TAB PO SCH (09:07)
[2018-02-07] MEDS: AMIODARONE 200 MG TAB PO SCH ×2 (09:07→21:35)
[2018-02-07] MEDS: guaiFENesin 600 MG TABLET.ER PO SCH ×2 (09:07→21:35)
[2018-02-07] MEDS: TAMSULOSIN 0.4 MG CAP.ER.24H PO SCH (09:07)
[2018-02-07] MEDS: INSULIN DETEMIR 100 UNIT/ML 10 ML VIAL SQ SCH ×2 (09:08→21:35)
[2018-02-07] MEDS: CLOPIDOGREL 75 MG TAB PO SCH (09:09)
[2018-02-07] MEDS: FUROSEMIDE 10 MG/ML 4 ML VIAL IV SCH (09:09)
[2018-02-07] MEDS: HEPARIN SODIUM,PORCINE 5,000 UNIT/ML 1 ML VIAL SQ SCH ×2 (09:09→15:21)
[2018-02-07] MEDS: MUPIROCIN 2% OINT 22 GM TUBE NASAL SCH ×2 (09:20→21:35)
--- NOTE | 2018-02-07 09:55 | P.PN ---
Subjective Progress Note Date: 02/07/18 HPI: Bird Maria~is a 77 y.o.~male~~being seen examined and evaluated today for consultation. This patient was admitted to the [facility] on 01/21/18-after coming in with complaints of dyspnea with no relief from his inhaler and having significant chest pressure. Patient was found to be in A. fib with RVR and was started on a heparin drip. Patient did have an echocardiogram which revealed an EF of 55% with severe mitral regurg is RVSP P was 53 mmHg. He also had a Karlee scan stress test that was also abnormal and a PATTIE with heart catheter, please see those notes for details. Currently the patient was transfered to [facility] on 01/27/18 for a CABG and mitral valve replacement. Upon examination the patient's resting up in bed on room air. He denies any shortness of breath cough or congestion at this time. He denies any smoking history however did state that he did chew tobacco on occasion. He denies any episodes of snoring however states that his sleep each night is very restless and he wakes up a minimum of 6 times per night. The patient has never had a workup for obstructive sleep apnea. Patient also states that he has had 2 previous surgeries 1 on his knee and shoulders and had no problems with anesthesiology, or waking up from surgery. Education has been provided to the patient on the extent of the surgery as well as education on mechanical ventilation intubation and extubation with possible best case scenario outcomes and worst-case scenario comes. Patient verbalizes understanding. Interval History: 01/29/18- patient is being seen examined and evaluated today on rounds. He is resting up in bed on room air. CT is feeling well. Has been ambulating in the hallway. Has been utilizing his incentive spirometer and pulling volumes of approximately 1750 arousals. He denies any cough or congestion at this time. Patient is planned for a CABG tomorrow with cardiothoracic surgery. Preop workup has been completed. He is afebrile no further complaints. All labs and reports have been reviewed. 01/30/2018: Patient seen and examined in the intensive care unit with nursing staff at bedside. The patient has returned from CABG and valve replacement. The patient is on full ventilator support. Ventilator has been adjusted and ABG reviewed. No current issues per nursing staff. 01/31-02/01/[address] АННА Smith notes 02/02/18- patient is being seen examined and evaluated today in the intensive care unit. Patient has been slightly hypotensive and his Primacor has been weaned off off, dopamine has been decreased as well per cardiothoracic services. He continues on insulin drip per protocol. Urine output has been 50- 60 miles per hour. He continues on 4 L of supplemental oxygen via nasal cannula. Does complain of some shortness of breath with exertion and activity. Denies any cough or congestion. He continues to have chest tubes in place to mediastinal and one left pleural itch chest tube did produce 50-70 miles overnight. Patient has been tolerating his clear liquid diet about 75% this morning. He did not need any BiPAP overnight. He continues to have epicardial pacer in VVI mode. He is afebrile no further complaints. 02/03/18- patient is being seen examined and evaluated today on rounds. Patient is resting up in bed on supplemental oxygen. He continues on Lasix drip insulin and dopamine. Patient has noted to have a BUN of 63, his Creatinine is increased to 3.7. Nephrology will be consulted. Chest x-ray was reviewed and does show some progressive pulmonary edema with small right-sided pleural effusion as well as cardiogenic fluid overload. Patient's blood pressure is stable. Per the nursing staff the patient may undergo his chest chest tube removal today. He is hemodynamically stable, no further complaints. Using his incentive spirometer. 02/04/18- patient is being seen examined and evaluated today on rounds. He remains in the intensive care unit. His BUN today is 77 g 3.6, nephrology was consulted yesterday and was subsequently canceled per the admitting team. Chest x-ray was reviewed and does show some improvement and CHF and improvement in the right pleural effusion. Patient was taken off Lasix drip and switched to IV push Lasix. His chest tube was removed yesterday. His dopamine is currently on hold. He is hemodynamically stable. 02/05/2018: Patient seen and examined. Patient has been transferred from the intensive care unit. His BUN today is 83 and creatinine is 3.4. The patient states he is having more pain today. He is currently sitting up in the chair. He states that he has had urinary retention and had to be straight cath this morning. He does have intermittent shortness of breath but states it is improving. 02/06/18-patient is being seen examined and evaluated today on the selective care unit. The patient was downgraded from the ICU yesterday. He is resting up in bed on room air. States he does not have any shortness of breath cough or congestion at this time. His BUN today is 87 g 3.5. He continues to have some urinary retention today and had to be straight cath again. The patient also complains of some constipation and is being put on a bowel regimen. He is afebrile no further complaints. Has been working with PT and OT. 02/07/18- patient is being seen examined and evaluated today on rounds. Patient is resting up in bed and intermittently using oxygen on and off. He still has some shortness of breath with exertion. He was able to have a bowel movement yesterday. He continues to have urinary retention and a Narvaez catheter had to be placed. Patient's BUN is 93 creatinine is 3.25. He continues with PT and OT patient will require inpatient rehab upon discharge. Objective - Vital Signs Vital signs: Vital Signs Temp 97 F L 02/07/18 03:26 Pulse 78 02/07/18 05:24 Resp 16 02/07/18 05:24 BP 113/59 02/07/18 05:24 Pulse Ox 100 02/07/18 05:24 Intake & Output 02/06/18 02/07/18 02/07/18 18:59 06:59 18:59 Intake Total 100 Output Total 1000 Balance 100 -1000 Weight 101.4 kg Intake: Oral 100 Output: Urine 1000 Other: Voiding Method Indwelling Catheter Indwelling Catheter # Voids 0 # Bowel Movements 1 ABP, PAP, CO, CI - Last Documented Arterial Blood Pressure 91/32 Pulmonary Artery Pressure 35/18 Cardiac Output 4.8 Cardiac Index 2.9 - Exam CONSTITUTIONAL: Patient is seen in no acute distress HEENT: Head is normocephalic, atraumatic. Pupils are equal, conjunctiva clear. Neck is supple, trachea is midline. No JVD. RESPIRATORY: ~Lungs clear to auscultation. No wheezes, rales or rhonchi appreciated. Respirations are even and unlabored. Bases diminished bilaterally CARDIOVASCULAR: ~Heart is irregular rate and rhythm. S1 and S2 are heard. No murmur. GASTROINTESTINAL: ~Abdomen is soft, nontender, nondistended. Bowel sounds are positive. EXTREMITIES: ~No lower extremity edema is noted. Pedal pulses are palpable bilaterally. NEUROLOGICAL: ~Patient is alert and oriented 3. Speech is clear and interactive. No tremor is noted. - Labs CBC & Chem 7: 02/07/18 06:07 02/07/18 06:04 Labs: Abnormal Lab Results - Last 24 Hours (Table) 02/06/18 02/06/18 02/06/18 Range/Units 11:31 16:25 16:45 WBC (3.8-10.6) k/uL RBC (4.30-5.90) m/uL Hgb (13.0-17.5) gm/dL Hct (39.0-53.0) % RDW (11.5-15.5) % Sodium (137-145) mmol/L Chloride (98-107) mmol/L BUN (9-20) mg/dL Creatinine (0.66-1.25) mg/dL Glucose (74-99) mg/dL POC Glucose (mg/dL) 123 H 58 L 69 L (75-99) mg/dL Phosphorus (2.5-4.5) mg/dL Magnesium (1.6-2.3) mg/dL Total Bilirubin (0.2-1.3) mg/dL Total Protein (6.3-8.2) g/dL Albumin (3.5-5.0) g/dL 02/06/18 02/06/18 02/07/18 Range/Units 17:19 21:11 02:29 WBC (3.8-10.6) k/uL RBC (4.30-5.90) m/uL Hgb (13.0-17.5) gm/dL Hct (39.0-53.0) % RDW (11.5-15.5) % Sodium (137-145) mmol/L Chloride (98-107) mmol/L BUN (9-20) mg/dL Creatinine (0.66-1.25) mg/dL Glucose (74-99) mg/dL POC Glucose (mg/dL) 123 H 252 H 153 H (75-99) mg/dL Phosphorus (2.5-4.5) mg/dL Magnesium (1.6-2.3) mg/dL Total Bilirubin (0.2-1.3) mg/dL Total Protein (6.3-8.2) g/dL Albumin (3.5-5.0) g/dL 02/07/18 02/07/18 02/07/18 Range/Units 06:04 06:04 06:07 WBC 14.6 H (3.8-10.6) k/uL RBC 3.33 L (4.30-5.90) m/uL Hgb 9.3 L (13.0-17.5) gm/dL Hct 29.7 L (39.0-53.0) % RDW 15.8 H (11.5-15.5) % Sodium 131 L (137-145) mmol/L Chloride 89 L (98-107) mmol/L BUN 90 H* (9-20) mg/dL Creatinine 3.25 H (0.66-1.25) mg/dL Glucose 110 H (74-99) mg/dL POC Glucose (mg/dL) (75-99) mg/dL Phosphorus 5.5 H (2.5-4.5) mg/dL Magnesium 2.6 H (1.6-2.3) mg/dL Total Bilirubin 1.6 H (0.2-1.3) mg/dL Total Protein 5.8 L (6.3-8.2) g/dL Albumin 3.3 L (3.5-5.0) g/dL 02/07/18 Range/Units 06:46 WBC (3.8-10.6) k/uL RBC (4.30-5.90) m/uL Hgb (13.0-17.5) gm/dL Hct (39.0-53.0) % RDW (11.5-15.5) % Sodium (137-145) mmol/L Chloride (98-107) mmol/L BUN (9-20) mg/dL Creatinine (0.66-1.25) mg/dL Glucose (74-99) mg/dL POC Glucose (mg/dL) 139 H (75-99) mg/dL Phosphorus (2.5-4.5) mg/dL Magnesium (1.6-2.3) mg/dL Total Bilirubin (0.2-1.3) mg/dL Total Protein (6.3-8.2) g/dL Albumin (3.5-5.0) g/dL Assessment and Plan Assessment: Assessment: Chest pain Severe mitral regurgitation, s/p MVR ASCAD, s/p CABG 80-90% stenosis of his right coronary artery 60-70% stenosis of the AV circumflex COPD Possible GHULAM Diabetes mellitus type 2 Hyperlipidemia Urinary retention Plan: s/p CABG Medications have been reviewed and will be continued as ordered. Consult to nephrology canceled per attending Swathi Borrero reviewed from [facility] reviewed, suggestive of restrictive lung disease, however, without lung volumes and full PFT cannot definitively diagnose. Hemodynamics per CVTS Monitor I & O's Outpatient PFT and PSG recommended. Incentive spirometry and pulmonary hygiene. Supplemental oxygen to maintain oxygen saturations greater than 90% if needed. GI and DVT prophylaxis. Patient will also benefit from an outpatient PSG once medically stable and discharged from the hospital. Patient being evaluated for inpatient rehab, discharge planning We will continue to monitor labs/results and adjust treatment as necessary. I performed an examination of the patient and discussed their management with the nurse practitioner. I have reviewed the nurse practitioner's note and agree with the documented findings and plan of care.
[2018-02-07] MEDS: hydrALAZINE HCL 25 MG TAB PO SCH ×2 (10:05→15:21)
--- NOTE | 2018-02-07 11:12 | P.PN ---
Subjective Progress Note Date: 02/07/18 Principal diagnosis: Open heart surgery Patient continued to be hemodynamically stable overnight no major events reported by nursing staff. Patient still having good urine output after inserting Narvaez catheter and averaging around 50 mL/h for clear urine in the bag. Patient is tolerating diet seems to be slightly lethargic but alert awake and oriented following commands. Patient is asking when he can be discharged Objective - Vital Signs Vital signs: Vital Signs Temp 97 F L 02/07/18 03:26 Pulse 78 02/07/18 05:24 Resp 16 02/07/18 05:24 BP 113/59 02/07/18 05:24 Pulse Ox 100 02/07/18 05:24 Intake & Output 02/06/18 02/07/18 02/07/18 18:59 06:59 18:59 Intake Total 100 Output Total 1000 Balance 100 -1000 Weight 101.4 kg Intake: Oral 100 Output: Urine 1000 Other: Voiding Method Indwelling Catheter Indwelling Catheter # Voids 0 # Bowel Movements 1 ABP, PAP, CO, CI - Last Documented Arterial Blood Pressure 91/32 Pulmonary Artery Pressure 35/18 Cardiac Output 4.8 Cardiac Index 2.9 - Exam Gen.: in stated age, no acute distress Heart: Normal S1-S2 Lungs: Clear to auscultation bilaterally Abdomen: Soft, no tenderness, positive bowel sounds in all 4 quadrant no guarding or rebound Skin: No new rash, positive for mediastinum incision seems to be clean and intact and dry, positive for lower extremity incisions seems to be healing without complication Psych: Alert and oriented 3 Neuro: No focal deficit genitourinary positive for Narvaez catheter in place - Labs CBC & Chem 7: 02/07/18 06:07 02/07/18 06:04 Labs: Abnormal Lab Results - Last 24 Hours (Table) 02/06/18 02/06/18 02/06/18 Range/Units 11:31 16:25 16:45 WBC (3.8-10.6) k/uL RBC (4.30-5.90) m/uL Hgb (13.0-17.5) gm/dL Hct (39.0-53.0) % RDW (11.5-15.5) % Sodium (137-145) mmol/L Chloride (98-107) mmol/L BUN (9-20) mg/dL Creatinine (0.66-1.25) mg/dL Glucose (74-99) mg/dL POC Glucose (mg/dL) 123 H 58 L 69 L (75-99) mg/dL Phosphorus (2.5-4.5) mg/dL Magnesium (1.6-2.3) mg/dL Total Bilirubin (0.2-1.3) mg/dL Total Protein (6.3-8.2) g/dL Albumin (3.5-5.0) g/dL 02/06/18 02/06/18 02/07/18 Range/Units 17:19 21:11 02:29 WBC (3.8-10.6) k/uL RBC (4.30-5.90) m/uL Hgb (13.0-17.5) gm/dL Hct (39.0-53.0) % RDW (11.5-15.5) % Sodium (137-145) mmol/L Chloride (98-107) mmol/L BUN (9-20) mg/dL Creatinine (0.66-1.25) mg/dL Glucose (74-99) mg/dL POC Glucose (mg/dL) 123 H 252 H 153 H (75-99) mg/dL Phosphorus (2.5-4.5) mg/dL Magnesium (1.6-2.3) mg/dL Total Bilirubin (0.2-1.3) mg/dL Total Protein (6.3-8.2) g/dL Albumin (3.5-5.0) g/dL 02/07/18 02/07/18 02/07/18 Range/Units 06:04 06:04 06:07 WBC 14.6 H (3.8-10.6) k/uL RBC 3.33 L (4.30-5.90) m/uL Hgb 9.3 L (13.0-17.5) gm/dL Hct 29.7 L (39.0-53.0) % RDW 15.8 H (11.5-15.5) % Sodium 131 L (137-145) mmol/L Chloride 89 L (98-107) mmol/L BUN 90 H* (9-20) mg/dL Creatinine 3.25 H (0.66-1.25) mg/dL Glucose 110 H (74-99) mg/dL POC Glucose (mg/dL) (75-99) mg/dL Phosphorus 5.5 H (2.5-4.5) mg/dL Magnesium 2.6 H (1.6-2.3) mg/dL Total Bilirubin 1.6 H (0.2-1.3) mg/dL Total Protein 5.8 L (6.3-8.2) g/dL Albumin 3.3 L (3.5-5.0) g/dL 02/07/18 Range/Units 06:46 WBC (3.8-10.6) k/uL RBC (4.30-5.90) m/uL Hgb (13.0-17.5) gm/dL Hct (39.0-53.0) % RDW (11.5-15.5) % Sodium (137-145) mmol/L Chloride (98-107) mmol/L BUN (9-20) mg/dL Creatinine (0.66-1.25) mg/dL Glucose (74-99) mg/dL POC Glucose (mg/dL) 139 H (75-99) mg/dL Phosphorus (2.5-4.5) mg/dL Magnesium (1.6-2.3) mg/dL Total Bilirubin (0.2-1.3) mg/dL Total Protein (6.3-8.2) g/dL Albumin (3.5-5.0) g/dL Assessment and Plan Assessment: 1. status post CABG. 2. Status post mitral valve repair. 3. Acute urinary retention with subsequent acute kidney injury 4. Benign prostatic hypertrophy. 5. Leukocytosis. 6. Anemia of blood loss stable 7. Serial debility and deconditioning. 8. Diabetes mellitus type 2. 9. Hypertension. 10. Hyperlipidemia. 11. GERD. 12. COPD. 13. Edematous status. 14. Paroxysmal atrial fibrillation I had long discussion with the patient regarding treatment plan and he is agreeable to the current treatment plan including Narvaez catheter to relief the attention until kidney function is improved and then we will consider weaning Narvaez catheter that was discussed with the nursing staff. I would like to continue Lasix daily and monitor his kidney function closely. I would like to continue with heparin for DVT prophylaxis and continue cardioprotective medication per cardiology recommendation. I would like to continue monitoring white blood count and avoid any antibiotics at this point. Patient had Paroxysmal atrial fibrillation and I would like to monitor his heart rate closely decision for full anticoagulation to be determined by primary interior systems carpenter patient currently on aspirin and heparin for DVT prophylaxis. Patient's on amiodarone to be titrated down based on clinical progress. Prognosis is fair
[2018-02-07 11:55] LABS: Glucose,Whole Blood 95 mg/dL (75-99)
--- NOTE | 2018-02-07 15:25 | P.PN ---
Subjective Progress Note Date: 02/07/18 Principal diagnosis: Status post CABG and also mitral valve replacement This is a 77-year-old gentleman is admitted to the hospital for bypass surgery and also mitral valve repair. Postoperative course was completely to be acute renal failure. His creatinine is showing some improvement. His urine output has increased. Patient patient seemed to be much more stable. Discussed the case with the nurses and reviewed the chart. Patient is being transferred to telemetry unit. No arrhythmias are detected. Patient is on amiodarone. 02/06/2018: This patient seemed to be doing clinically well except having difficulty with urination and retention. Patient has to have straight cath. He is also having problems with constipation. His creatinine remains about 3.5. His blood pressure is stable. Denies any chest pain. Doesn't appear to be in acute respiratory distress. Tolerating activity. 02/07/2018: This patient is clinically stable. Seemed to be little more active. Still having difficulty with urination and has Narvaez catheter. Arrangements are being made for his transfer to a nursing facility with rehab. Meanwhile current medical therapy to be continued Objective - Vital Signs Vital signs: Vital Signs Temp 97.6 F 02/07/18 15:22 Pulse 76 02/07/18 15:22 Resp 16 02/07/18 15:22 BP 89/53 02/07/18 15:22 Pulse Ox 96 02/07/18 15:22 Intake & Output 02/06/18 02/07/18 02/07/18 18:59 06:59 18:59 Intake Total 100 Output Total 1000 Balance 100 -1000 Weight 101.4 kg Intake: Oral 100 Output: Urine 1000 Other: Voiding Method Indwelling Catheter Indwelling Catheter # Voids 0 # Bowel Movements 1 ABP, PAP, CO, CI - Last Documented Arterial Blood Pressure 91/32 Pulmonary Artery Pressure 35/18 Cardiac Output 4.8 Cardiac Index 2.9 - Exam GENERAL EXAM: Patient is alert and oriented and in mild distress and seemed to be nauseated HEENT: Normocephalic. Normal reaction of pupils, equal size, normal range of extraocular motion. No erythema or exudates in the throat. NECK: No masses, no nuchal rigidity. CHEST: Postsurgical. LUNGS: Diminished breath sounds at bases HEART: Distant heart sounds ABDOMEN: Deferred SKIN: No rashes CENTRAL NERVOUS SYSTEM: No focal deficits. EXTREMITIES: No cyanosis, clubbing or edema. - Labs CBC & Chem 7: 02/07/18 06:07 02/07/18 06:04 Labs: Abnormal Lab Results - Last 24 Hours (Table) 02/06/18 02/06/18 02/06/18 Range/Units 16:25 16:45 17:19 WBC (3.8-10.6) k/uL RBC (4.30-5.90) m/uL Hgb (13.0-17.5) gm/dL Hct (39.0-53.0) % RDW (11.5-15.5) % Sodium (137-145) mmol/L Chloride (98-107) mmol/L BUN (9-20) mg/dL Creatinine (0.66-1.25) mg/dL Glucose (74-99) mg/dL POC Glucose (mg/dL) 58 L 69 L 123 H (75-99) mg/dL Phosphorus (2.5-4.5) mg/dL Magnesium (1.6-2.3) mg/dL Total Bilirubin (0.2-1.3) mg/dL Total Protein (6.3-8.2) g/dL Albumin (3.5-5.0) g/dL 02/06/18 02/07/18 02/07/18 Range/Units 21:11 02:29 06:04 WBC (3.8-10.6) k/uL RBC (4.30-5.90) m/uL Hgb (13.0-17.5) gm/dL Hct (39.0-53.0) % RDW (11.5-15.5) % Sodium 131 L (137-145) mmol/L Chloride 89 L (98-107) mmol/L BUN 90 H* (9-20) mg/dL Creatinine 3.25 H (0.66-1.25) mg/dL Glucose 110 H (74-99) mg/dL POC Glucose (mg/dL) 252 H 153 H (75-99) mg/dL Phosphorus (2.5-4.5) mg/dL Magnesium 2.6 H (1.6-2.3) mg/dL Total Bilirubin 1.6 H (0.2-1.3) mg/dL Total Protein 5.8 L (6.3-8.2) g/dL Albumin 3.3 L (3.5-5.0) g/dL 02/07/18 02/07/18 02/07/18 Range/Units 06:04 06:07 06:46 WBC 14.6 H (3.8-10.6) k/uL RBC 3.33 L (4.30-5.90) m/uL Hgb 9.3 L (13.0-17.5) gm/dL Hct 29.7 L (39.0-53.0) % RDW 15.8 H (11.5-15.5) % Sodium (137-145) mmol/L Chloride (98-107) mmol/L BUN (9-20) mg/dL Creatinine (0.66-1.25) mg/dL Glucose (74-99) mg/dL POC Glucose (mg/dL) 139 H (75-99) mg/dL Phosphorus 5.5 H (2.5-4.5) mg/dL Magnesium (1.6-2.3) mg/dL Total Bilirubin (0.2-1.3) mg/dL Total Protein (6.3-8.2) g/dL Albumin (3.5-5.0) g/dL Assessment and Plan (1) H/O coronary artery bypass surgery Current Visit: Yes Status: Acute Code(s): Z95.1 - PRESENCE OF AORTOCORONARY BYPASS GRAFT SNOMED Code(s): 309370486 (2) History of mitral valve repair Current Visit: Yes Status: Acute Code(s): Z98.890 - OTHER SPECIFIED POSTPROCEDURAL STATES SNOMED Code(s): 171923536 (3) COPD (chronic obstructive pulmonary disease) Current Visit: Yes Status: Chronic Code(s): J44.9 - CHRONIC OBSTRUCTIVE PULMONARY DISEASE, UNSPECIFIED SNOMED Code(s): 87695578 (4) Diabetes mellitus type 2 in obese Current Visit: Yes Status: Chronic Code(s): E11.69 - TYPE 2 DIABETES MELLITUS WITH OTHER SPECIFIED COMPLICATION; E66.9 - OBESITY, UNSPECIFIED SNOMED Code(s): 10414301 (5) Hyperlipidemia Current Visit: Yes Status: Chronic Code(s): E78.5 - HYPERLIPIDEMIA, UNSPECIFIED SNOMED Code(s): 89364091 (6) Acute kidney injury Current Visit: Yes Status: Acute Code(s): N17.9 - ACUTE KIDNEY FAILURE, UNSPECIFIED SNOMED Code(s): 53754437 Plan: Clinically remains stable. Still not I am bleeding well. Narvaez catheter to be continued. Possible transfer to a nursing facility for rehab
[2018-02-07 16:56] LABS: Glucose,Whole Blood 141 mg/dL (75-99)
[2018-02-07 21:28] LABS: Glucose,Whole Blood 99 mg/dL (75-99)
[2018-02-07] MEDS: LINAGLIPTIN 5 MG TABLET PO SCH (21:35)
[2018-02-07] MEDS: SENNOSIDES-DOCUSATE SODIUM 1 EACH TAB PO SCH (21:35)
[2018-02-08] MEDS: HYDROcodone/APAP 7.5-325MG 1 EACH TAB PO PRN ×5 (00:14→22:28)
[2018-02-08] MEDS: hydrALAZINE HCL 25 MG TAB PO SCH (00:15)
[2018-02-08] MEDS: HEPARIN SODIUM,PORCINE 5,000 UNIT/ML 1 ML VIAL SQ SCH ×2 (00:15→11:11)
[2018-02-08 02:18] LABS: Glucose,Whole Blood 64 mg/dL (75-99)
[2018-02-08 02:34] LABS: Glucose,Whole Blood 93 mg/dL (75-99)
[2018-02-08 04:34] LABS: Glucose,Whole Blood 109 mg/dL (75-99)
[2018-02-08 04:51] LABS: HCT 26.9 % (39.0-53.0); HGB 9.1 gm/dL (13.0-17.5); MCH 29.4 pg (25.0-35.0); MCHC 33.6 g/dL (31.0-37.0); MCV 87.4 fL (80.0-100.0); Mean Platelet Volume 7.1; Platelet Count 317 k/uL (150-450); RBC 3.08 m/uL (4.30-5.90); RDW 15.7 % (11.5-15.5); WBC 15.5 k/uL (3.8-10.6)
[2018-02-08 05:09] LABS: Albumin 3.3 g/dL (3.5-5.0); Calcium 8.5 mg/dL (8.4-10.2); Magnesium 2.8 mg/dL (1.6-2.3); Phosphorus 6.3 mg/dL (2.5-4.5); Potassium 4.5 mmol/L (3.5-5.1); Total Bilirubin 1.3 mg/dL (0.2-1.3); Total Protein 5.8 g/dL (6.3-8.2)
[2018-02-08 06:35] LABS: Glucose,Whole Blood 90 mg/dL (75-99)
[2018-02-08] MEDS: INSULIN ASPART 100 UNIT/ML 1 ML 10 ML VIAL SQ SCH ×7 (06:46→20:54)
[2018-02-08] MEDS: PANTOPRAZOLE 40 MG TABLET PO SCH (06:47)
[2018-02-08] MEDS: CALCIUM ACETATE 667 MG CAP PO SCH ×3 (06:47→17:23)
[2018-02-08] MEDS: METOCLOPRAMIDE 5 MG TAB PO SCH ×3 (06:47→17:23)
[2018-02-08] MEDS: IPRATROPIUM-ALBUTEROL 3 ML NEB INHALATION SCH ×4 (07:47→19:28)
[2018-02-08 07:58] LABS: Glucose,Whole Blood 85 mg/dL (75-99)
[2018-02-08] MEDS: ONDANSETRON 4 MG/2 ML VIAL IVP PRN (07:58)
--- NOTE | 2018-02-08 08:02 | XR ---
EXAMINATION TYPE: XR chest 2V DATE OF EXAM: 02/08/2018 COMPARISON: Prior chest x-ray 02/07/2018 HISTORY: Status post cardiac surgery TECHNIQUE: Frontal and lateral views of the chest are obtained. FINDINGS: No evident pneumothorax. Heart remains enlarged, patient is post median sternotomy. Basila r increased density persists. There are overlying cardiac leads. Interstitium is mildly increased. IMPRESSION: There may be some slight improvement in aeration. There may be a small component of volu me overload, persistent basilar atelectasis versus edema and possible small effusion.
[2018-02-08] MEDS: FUROSEMIDE 10 MG/ML 4 ML VIAL IV SCH (08:55)
[2018-02-08] MEDS: METOPROLOL TARTRATE 12.5 MG TAB PO SCH ×2 (08:57→20:52)
[2018-02-08] MEDS: AMIODARONE 200 MG TAB PO SCH ×2 (09:34→20:52)
[2018-02-08] MEDS: CLOPIDOGREL 75 MG TAB PO SCH (09:34)
[2018-02-08] MEDS: ATORVASTATIN 40 MG TAB PO SCH (09:34)
[2018-02-08] MEDS: guaiFENesin 600 MG TABLET.ER PO SCH ×2 (09:34→20:52)
[2018-02-08] MEDS: ASPIRIN 325 MG TAB PO SCH (09:34)
[2018-02-08] MEDS: MUPIROCIN 2% OINT 22 GM TUBE NASAL SCH ×2 (09:37→20:52)
--- NOTE | 2018-02-08 09:48 | P.PN ---
Subjective Progress Note Date: 02/08/18 Principal diagnosis: Severe mitral regurgitation. 2 vessel coronary artery disease. New onset preoperative paroxysmal atrial fibrillation. 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 POD #9 urgent mitral valve repair with a #30 mm [employer]bo[employer] annular flex band. Clip ligation of the left atrial appendage with a #35 mm AtriClip. Coronary bypass grafting 2 with reverse saphenous vein graft off the aorta to the circumflex artery and the right coronary artery. Endoscopic harvesting of the right greater saphenous vein. Complete left-sided maze procedure using radiofrequency ablation as well as cryoablation. Intraoperative transesophageal echocardiogram. Postoperative hypotension and low urine output requiring combination of IV pressors, lasix, and inotropic support secondary to low cardiac output, intravascular hypovolemia, an unexpected but potential outcome of surgery. Postoperative acute kidney injury, an unexpected but potential outcome of surgery secondary to hemodynamic instability. Postoperative urinary retention, an unexpected but potential outcome with the patient having a previous history of urinary retention after surgery. The patient is currently sitting up in a recliner in no acute distress. Does complain of chest pain when coughing, patient trying not to cough. Does complain of intermittent shortness of breath which is relieved with application of oxygen via nasal cannula. Complains of nausea this morning. Patient is refusing to ambulate in the hallway, will only ambulate in the room. Objective - Vital Signs Vital signs: Vital Signs Temp 97.2 F L 02/08/18 04:00 Pulse 79 02/08/18 05:49 Resp 16 02/08/18 04:00 BP 107/56 02/08/18 05:49 Pulse Ox 98 02/08/18 04:00 Intake & Output 02/07/18 02/08/18 02/08/18 18:59 06:59 18:59 Intake Total 360 Output Total 1800 250 Balance -1800 110 Weight 101.8 kg Intake: Oral 360 Output: Urine 1800 250 Other: Voiding Method Indwelling Catheter Indwelling Catheter # Bowel Movements 0 ABP, PAP, CO, CI - Last Documented Arterial Blood Pressure 91/32 Pulmonary Artery Pressure 35/18 Cardiac Output 4.8 Cardiac Index 2.9 - Constitutional General appearance: Present: no acute distress, obese - Respiratory Details: Lungs sounds diminished bilaterally. Respirations even, nonlabored. Currently on 2 L nasal cannula with oxygen saturation 98%. Able to achieve 1750 mL on his incentive spirometry. Weak cough. - Cardiovascular Details: S1, S2 present. Irregular rate and rhythm, controlled atrial fibrillation on telemetry. Sternum stable. Palpable peripheral pulses bilaterally. No edema present. No calf pain or tenderness noted. Antiembolism stockings, SCDs present. Heart hugger in place with patient demonstrating appropriate use. - Gastrointestinal Gastrointestinal Comment(s): Abdomen soft, round, nontender, nondistended. Active bowel sounds present 4 quadrants. Tolerating diet. Positive flatus, positive small BM. - Genitourinary Genitourinary Comment(s): Narvaez present draining clear, yellow urine. Output 250 mL overnight. - Integumentary Integumentary Comment(s): Skin is warm and dry with evidence of good perfusion. Anterior chest incision well approximated and covered with dry intact dressing. Right lower extremity EVH site well approximated, area of firmness present in the right inner thigh, common from tunnel created when harvesting vein. - Neurologic Neurologic: Present: CNII-XII intact - Musculoskeletal Musculoskeletal: Present: generalized weakness - Psychiatric Psychiatric: Present: A&O x's 3, appropriate affect, intact judgment & insight - Allied health notes Allied health notes reviewed: nursing - Labs CBC & Chem 7: 02/08/18 04:37 02/08/18 04:37 Labs: Abnormal Lab Results - Last 24 Hours (Table) 02/07/18 02/07/18 02/08/18 Range/Units 06:04 16:49 01:59 WBC (3.8-10.6) k/uL RBC (4.30-5.90) m/uL Hgb (13.0-17.5) gm/dL Hct (39.0-53.0) % RDW (11.5-15.5) % Sodium (137-145) mmol/L Chloride (98-107) mmol/L BUN (9-20) mg/dL Creatinine (0.66-1.25) mg/dL POC Glucose (mg/dL) 141 H 64 L (75-99) mg/dL Phosphorus 5.5 H (2.5-4.5) mg/dL Magnesium (1.6-2.3) mg/dL Total Protein (6.3-8.2) g/dL Albumin (3.5-5.0) g/dL 02/08/18 02/08/18 02/08/18 Range/Units 04:32 04:37 04:37 WBC 15.5 H (3.8-10.6) k/uL RBC 3.08 L (4.30-5.90) m/uL Hgb 9.1 L (13.0-17.5) gm/dL Hct 26.9 L (39.0-53.0) % RDW 15.7 H (11.5-15.5) % Sodium 129 L (137-145) mmol/L Chloride 89 L (98-107) mmol/L BUN 100 H* (9-20) mg/dL Creatinine 3.80 H (0.66-1.25) mg/dL POC Glucose (mg/dL) 109 H (75-99) mg/dL Phosphorus 6.3 H (2.5-4.5) mg/dL Magnesium 2.8 H (1.6-2.3) mg/dL Total Protein 5.8 L (6.3-8.2) g/dL Albumin 3.3 L (3.5-5.0) g/dL - Imaging and Cardiology Chest x-ray: report reviewed, image reviewed Assessment and Plan (1) Paroxysmal atrial fibrillation Current Visit: Yes Status: Acute Code(s): I48.0 - PAROXYSMAL ATRIAL FIBRILLATION SNOMED Code(s): 273342540 (2) Acute kidney injury Current Visit: Yes Status: Acute Code(s): N17.9 - ACUTE KIDNEY FAILURE, UNSPECIFIED SNOMED Code(s): 47766236 (3) History of skin cancer Current Visit: No Status: Resolved Code(s): Z85.828 - PERSONAL HISTORY OF OTHER MALIGNANT NEOPLASM OF SKIN SNOMED Code(s): 018391675 (4) Asthma Current Visit: Yes Status: Acute Code(s): J45.909 - UNSPECIFIED ASTHMA, UNCOMPLICATED SNOMED Code(s): 063497102 (5) COPD (chronic obstructive pulmonary disease) Current Visit: Yes Status: Chronic Code(s): J44.9 - CHRONIC OBSTRUCTIVE PULMONARY DISEASE, UNSPECIFIED SNOMED Code(s): 07471789 (6) Diabetes mellitus type 2 in obese Current Visit: Yes Status: Chronic Code(s): E11.69 - TYPE 2 DIABETES MELLITUS WITH OTHER SPECIFIED COMPLICATION; E66.9 - OBESITY, UNSPECIFIED SNOMED Code(s): 78604383 (7) Enlarged prostate Current Visit: Yes Status: Chronic Code(s): N40.0 - BENIGN PROSTATIC HYPERPLASIA WITHOUT LOWER URINRY TRACT SYMP SNOMED Code(s): 841309101 (8) Hyperlipidemia Current Visit: Yes Status: Chronic Code(s): E78.5 - HYPERLIPIDEMIA, UNSPECIFIED SNOMED Code(s): 42594712 (9) Hypertension Current Visit: Yes Status: Chronic Code(s): I10 - ESSENTIAL (PRIMARY) HYPERTENSION SNOMED Code(s): 89285416 (10) Personal history of nicotine dependence Current Visit: No Status: Resolved Code(s): Z87.891 - PERSONAL HISTORY OF NICOTINE DEPENDENCE SNOMED Code(s): 30084978 (11) Presence of stent in coronary artery in patient with coronary artery disease Current Visit: Yes Status: Chronic Code(s): I25.10 - ATHSCL HEART DISEASE OF [place] CORONARY ARTERY W/O ANG PCTRS; Z95.5 - PRESENCE OF CORONARY ANGIOPLASTY IMPLANT AND GRAFT SNOMED Code(s): 964861370 (12) Severe mitral regurgitation by prior echocardiogram Current Visit: Yes Status: Chronic Code(s): I34.0 - NONRHEUMATIC MITRAL ( VALVE) INSUFFICIENCY SNOMED Code(s): 25266943 (13) Left carotid stenosis Current Visit: Yes Status: Chronic Code(s): I65.22 - OCCLUSION AND STENOSIS OF LEFT CAROTID ARTERY SNOMED Code(s): 200669467671780 Plan: 1. Continue low dose aspirin, statin, Lopressor. Will increase beta lencho therapy as tolerated. Hydralazine discontinued secondary to hypotension. 2. Continue amiodarone for A. fib prophylaxis. Will decrease dose to 200 mg daily on February 14. Eliquis ordered for anticoagulation. 3. No diuresis today. 4. Encourage incentive spirometry use 10 times every hour while awake. Encourage patient to cough. 5. Encourage continued smoking cessation. 6. Increase activity, ambulate as tolerated. PT/OT/cardiac rehab following. 7. Will monitor daily labs and chest x-rays. No need for nephrology consult as we will manage his acute kidney injury. 8. Continue Flomax, will change to PM dosing. Continue Narvaez catheter for another 2-3 days per urology recommendations. 9. Diabetic management per primary care service. 10. GI/DVT prophylaxis. 11. Discharge planning in progress. Patient will need inpatient rehab at discharge. Dr. Diego was consulted and is following. 12. More recommendations as patient progresses. Time with Patient: Greater than 30
--- NOTE | 2018-02-08 10:05 | P.PN ---
Subjective Progress Note Date: 02/08/18 Principal diagnosis: ASCAD HPI: Bird Maria~is a 77 y.o.~male~~being seen examined and evaluated today for consultation. This patient was admitted to the [facility] on 01/21/18-after coming in with complaints of dyspnea with no relief from his inhaler and having significant chest pressure. Patient was found to be in A. fib with RVR and was started on a heparin drip. Patient did have an echocardiogram which revealed an EF of 55% with severe mitral regurg is RVSP P was 53 mmHg. He also had a Karlee scan stress test that was also abnormal and a PATTIE with heart catheter, please see those notes for details. Currently the patient was transfered to [facility] on 01/27/18 for a CABG and mitral valve replacement. Upon examination the patient's resting up in bed on room air. He denies any shortness of breath cough or congestion at this time. He denies any smoking history however did state that he did chew tobacco on occasion. He denies any episodes of snoring however states that his sleep each night is very restless and he wakes up a minimum of 6 times per night. The patient has never had a workup for obstructive sleep apnea. Patient also states that he has had 2 previous surgeries 1 on his knee and shoulders and had no problems with anesthesiology, or waking up from surgery. Education has been provided to the patient on the extent of the surgery as well as education on mechanical ventilation intubation and extubation with possible best case scenario outcomes and worst-case scenario comes. Patient verbalizes understanding. Interval History: 01/29/18- patient is being seen examined and evaluated today on rounds. He is resting up in bed on room air. CT is feeling well. Has been ambulating in the hallway. Has been utilizing his incentive spirometer and pulling volumes of approximately 1750 arousals. He denies any cough or congestion at this time. Patient is planned for a CABG tomorrow with cardiothoracic surgery. Preop workup has been completed. He is afebrile no further complaints. All labs and reports have been reviewed. 01/30/2018: Patient seen and examined in the intensive care unit with nursing staff at bedside. The patient has returned from CABG and valve replacement. The patient is on full ventilator support. Ventilator has been adjusted and ABG reviewed. No current issues per nursing staff. 5/12-02/01/[address] АННА Smith notes 02/02/18- patient is being seen examined and evaluated today in the intensive care unit. Patient has been slightly hypotensive and his Primacor has been weaned off off, dopamine has been decreased as well per cardiothoracic services. He continues on insulin drip per protocol. Urine output has been 50- 60 miles per hour. He continues on 4 L of supplemental oxygen via nasal cannula. Does complain of some shortness of breath with exertion and activity. Denies any cough or congestion. He continues to have chest tubes in place to mediastinal and one left pleural itch chest tube did produce 50-70 miles overnight. Patient has been tolerating his clear liquid diet about 75% this morning. He did not need any BiPAP overnight. He continues to have epicardial pacer in VVI mode. He is afebrile no further complaints. 02/03/18- patient is being seen examined and evaluated today on rounds. Patient is resting up in bed on supplemental oxygen. He continues on Lasix drip insulin and dopamine. Patient has noted to have a BUN of 63, his Creatinine is increased to 3.7. Nephrology will be consulted. Chest x-ray was reviewed and does show some progressive pulmonary edema with small right-sided pleural effusion as well as cardiogenic fluid overload. Patient's blood pressure is stable. Per the nursing staff the patient may undergo his chest chest tube removal today. He is hemodynamically stable, no further complaints. Using his incentive spirometer. 02/04/18- patient is being seen examined and evaluated today on rounds. He remains in the intensive care unit. His BUN today is 77 g 3.6, nephrology was consulted yesterday and was subsequently canceled per the admitting team. Chest x-ray was reviewed and does show some improvement and CHF and improvement in the right pleural effusion. Patient was taken off Lasix drip and switched to IV push Lasix. His chest tube was removed yesterday. His dopamine is currently on hold. He is hemodynamically stable. 02/05/2018: Patient seen and examined. Patient has been transferred from the intensive care unit. His BUN today is 83 and creatinine is 3.4. The patient states he is having more pain today. He is currently sitting up in the chair. He states that he has had urinary retention and had to be straight cath this morning. He does have intermittent shortness of breath but states it is improving. 02/06/18-patient is being seen examined and evaluated today on the selective care unit. The patient was downgraded from the ICU yesterday. He is resting up in bed on room air. States he does not have any shortness of breath cough or congestion at this time. His BUN today is 87 g 3.5. He continues to have some urinary retention today and had to be straight cath again. The patient also complains of some constipation and is being put on a bowel regimen. He is afebrile no further complaints. Has been working with PT and OT. 02/07/18- patient is being seen examined and evaluated today on rounds. Patient is resting up in bed and intermittently using oxygen on and off. He still has some shortness of breath with exertion. He was able to have a bowel movement yesterday. He continues to have urinary retention and a Narvaez catheter had to be placed. Patient's BUN is 93 creatinine is 3.25. He continues with PT and OT patient will require inpatient rehab upon discharge. 02/08/2018: Patient seen and examined. Patient states he is starting to feel very weak and that he is having cramping in his hands. The patient states that he is getting very frustrated and wants to go home. He doesn't understand what is going on and why it's taking so long. He states his breathing has been okay. He did have an episode of hypotension this morning. Cardiothoracic surgery was notified. The patient's urine output has been adequate however his BUN is continually climbing to 100 and his creatinine today is 3.8. Objective - Vital Signs Vital signs: Vital Signs Temp 97.2 F L 02/08/18 04:00 Pulse 79 02/08/18 05:49 Resp 16 02/08/18 08:00 BP 107/56 02/08/18 05:49 Pulse Ox 98 02/08/18 04:00 Intake & Output 02/07/18 02/08/18 02/08/18 18:59 06:59 18:59 Intake Total 360 Output Total 1800 250 Balance -1800 110 Weight 101.8 kg Intake: Oral 360 Output: Urine 1800 250 Other: Voiding Method Indwelling Catheter Indwelling Catheter Indwelling Catheter # Bowel Movements 0 ABP, PAP, CO, CI - Last Documented Arterial Blood Pressure 91/32 Pulmonary Artery Pressure 35/18 Cardiac Output 4.8 Cardiac Index 2.9 - Exam CONSTITUTIONAL: Patient is seen in no acute distress, generalized weakness HEENT: Head is normocephalic, atraumatic. Pupils are equal, conjunctiva clear. Neck is supple, trachea is midline. No JVD. RESPIRATORY: ~Lungs clear to auscultation. No wheezes, rales or rhonchi appreciated. Respirations are even and unlabored. Bases diminished bilaterally CARDIOVASCULAR: ~Heart is irregular rate and rhythm. S1 and S2 are heard. No murmur. GASTROINTESTINAL: ~Abdomen is soft, nontender, nondistended. Bowel sounds are positive. EXTREMITIES: ~No lower extremity edema is noted. Pedal pulses are palpable bilaterally. NEUROLOGICAL: ~Patient is alert and oriented 3. Speech is clear and interactive. No tremor is noted. - Labs CBC & Chem 7: 02/08/18 04:37 02/08/18 04:37 Labs: Abnormal Lab Results - Last 24 Hours (Table) 02/07/18 02/08/18 02/08/18 Range/Units 16:49 01:59 04:32 WBC (3.8-10.6) k/uL RBC (4.30-5.90) m/uL Hgb (13.0-17.5) gm/dL Hct (39.0-53.0) % RDW (11.5-15.5) % Sodium (137-145) mmol/L Chloride (98-107) mmol/L BUN (9-20) mg/dL Creatinine (0.66-1.25) mg/dL POC Glucose (mg/dL) 141 H 64 L 109 H (75-99) mg/dL Phosphorus (2.5-4.5) mg/dL Magnesium (1.6-2.3) mg/dL Total Protein (6.3-8.2) g/dL Albumin (3.5-5.0) g/dL 02/08/18 02/08/18 Range/Units 04:37 04:37 WBC 15.5 H (3.8-10.6) k/uL RBC 3.08 L (4.30-5.90) m/uL Hgb 9.1 L (13.0-17.5) gm/dL Hct 26.9 L (39.0-53.0) % RDW 15.7 H (11.5-15.5) % Sodium 129 L (137-145) mmol/L Chloride 89 L (98-107) mmol/L BUN 100 H* (9-20) mg/dL Creatinine 3.80 H (0.66-1.25) mg/dL POC Glucose (mg/dL) (75-99) mg/dL Phosphorus 6.3 H (2.5-4.5) mg/dL Magnesium 2.8 H (1.6-2.3) mg/dL Total Protein 5.8 L (6.3-8.2) g/dL Albumin 3.3 L (3.5-5.0) g/dL Assessment and Plan Assessment: Assessment: Acute renal failure Chest pain Severe mitral regurgitation, s/p MVR ASCAD, s/p CABG 80-90% stenosis of his right coronary artery 60-70% stenosis of the AV circumflex COPD Possible GHULAM Diabetes mellitus type 2 Hyperlipidemia Urinary retention Plan: s/p CABG Medications have been reviewed and will be continued as ordered. [place] reviewed from [facility] reviewed, suggestive of restrictive lung disease, however, without lung volumes and full PFT cannot definitively diagnose. Hemodynamics per CVTS Monitor I & O's Outpatient PFT and PSG recommended. Incentive spirometry and pulmonary hygiene. Supplemental oxygen to maintain oxygen saturations greater than 90% if needed. GI and DVT prophylaxis. Patient will also benefit from an outpatient PSG once medically stable and discharged from the hospital. Patient being evaluated for inpatient rehab, discharge planning We will continue to monitor labs/results and adjust treatment as necessary. Consult to nephrology canceled per primary team, patient's BUN and Creatinine continue to increase, would reconsider nephrology consult as the patient is starting to have symptoms of possible uremia and with his hypotension this morning, it is possible the renal function could worsen. The patient is also concerned and states he has never had problems with his kidneys in the past.
[2018-02-08] MEDS: TAMSULOSIN 0.4 MG CAP.ER.24H PO SCH ×2 (11:11→20:53)
--- NOTE | 2018-02-08 11:49 | P.PN ---
Subjective Progress Note Date: 02/08/18 Principal diagnosis: Open heart surgery became slightly hypotensive overnight and hydralazine was discontinued blood pressure seems to be more stable this morning. Patient aspirin dose was decreased to 81 mg daily as well and his Flomax was switched to nightly. Patient continued to have Narvaez catheter in place with good urine output over the last 12 hours. Patient is denying chest pain, shortness breath but complains of decreased appetite. Lantus was placed on hold last night due to borderline glucose reading Objective - Vital Signs Vital signs: Vital Signs Temp 98.1 F 02/08/18 08:00 Pulse 72 02/08/18 11:23 Resp 18 02/08/18 08:00 BP 72/52 02/08/18 08:00 Pulse Ox 100 02/08/18 08:00 Intake & Output 02/07/18 02/08/18 02/08/18 18:59 06:59 18:59 Intake Total 360 Output Total 1800 250 Balance -1800 110 Weight 101.8 kg Intake: Oral 360 Output: Urine 1800 250 Other: Voiding Method Indwelling Catheter Indwelling Catheter Indwelling Catheter # Bowel Movements 0 ABP, PAP, CO, CI - Last Documented Arterial Blood Pressure 91/32 Pulmonary Artery Pressure 35/18 Cardiac Output 4.8 Cardiac Index 2.9 - Exam Gen.: in stated age, no acute distress Heart: Normal S1-S2 Lungs: Clear to auscultation bilaterally Abdomen: Soft, no tenderness, positive bowel sounds in all 4 quadrant no guarding or rebound Skin: No new rash, positive for mediastinum incision seems to be clean and intact and dry, positive for lower extremity incisions seems to be healing without complication Psych: Alert and oriented 3 Neuro: No focal deficit genitourinary positive for Narvaez catheter in place - Labs CBC & Chem 7: 02/08/18 04:37 02/08/18 04:37 Labs: Abnormal Lab Results - Last 24 Hours (Table) 02/07/18 02/08/18 02/08/18 Range/Units 16:49 01:59 04:32 WBC (3.8-10.6) k/uL RBC (4.30-5.90) m/uL Hgb (13.0-17.5) gm/dL Hct (39.0-53.0) % RDW (11.5-15.5) % Sodium (137-145) mmol/L Chloride (98-107) mmol/L BUN (9-20) mg/dL Creatinine (0.66-1.25) mg/dL POC Glucose (mg/dL) 141 H 64 L 109 H (75-99) mg/dL Phosphorus (2.5-4.5) mg/dL Magnesium (1.6-2.3) mg/dL Total Protein (6.3-8.2) g/dL Albumin (3.5-5.0) g/dL 02/08/18 02/08/18 Range/Units 04:37 04:37 WBC 15.5 H (3.8-10.6) k/uL RBC 3.08 L (4.30-5.90) m/uL Hgb 9.1 L (13.0-17.5) gm/dL Hct 26.9 L (39.0-53.0) % RDW 15.7 H (11.5-15.5) % Sodium 129 L (137-145) mmol/L Chloride 89 L (98-107) mmol/L BUN 100 H* (9-20) mg/dL Creatinine 3.80 H (0.66-1.25) mg/dL POC Glucose (mg/dL) (75-99) mg/dL Phosphorus 6.3 H (2.5-4.5) mg/dL Magnesium 2.8 H (1.6-2.3) mg/dL Total Protein 5.8 L (6.3-8.2) g/dL Albumin 3.3 L (3.5-5.0) g/dL Assessment and Plan Assessment: 1. status post CABG. 2. Status post mitral valve repair. 3. Acute urinary retention with subsequent acute kidney injury 4. Benign prostatic hypertrophy. 5. Leukocytosis. 6. Anemia of blood loss stable 7. debility and deconditioning. 8. Diabetes mellitus type 2. 9. Hypertension. 10. Hyperlipidemia. 11. GERD. 12. COPD. 13. Edematous status. 14. Paroxysmal atrial fibrillation We'll monitor vital signs closely continue with current blood pressure medication regimen adjust to avoid hypotension patient currently is asymptomatic we will repeat his CBC and metabolic in the morning and consider physical and acute patient will therapy evaluation and preparation for discharge planning as patient may benefit from cardiac rehab after this long hospital stay. We'll remove forth Narvaez catheter in the morning and monitor his urine output closely we will continue holding his Lantus and continue with insulin sliding scale encourage oral intake and monitor his glucose closely plan discussed with patient and nursing staff at the bedside heart rate has been controlled patient currently on aspirin 81 mg daily with follow-up with cardiology regarding anticoagulation option at the time of the discharge
[2018-02-08 11:55] LABS: Glucose,Whole Blood 103 mg/dL (75-99)
[2018-02-08] MEDS: INSULIN DETEMIR 100 UNIT/ML 10 ML VIAL SQ SCH ×2 (13:23→22:00)
--- NOTE | 2018-02-08 15:51 | P.PN ---
Subjective Progress Note Date: 02/08/18 Principal diagnosis: Status post CABG and also mitral valve replacement This is a 77-year-old gentleman is admitted to the hospital for bypass surgery and also mitral valve repair. Postoperative course was completely to be acute renal failure. His creatinine is showing some improvement. His urine output has increased. Patient patient seemed to be much more stable. Discussed the case with the nurses and reviewed the chart. Patient is being transferred to telemetry unit. No arrhythmias are detected. Patient is on amiodarone. 02/06/2018: This patient seemed to be doing clinically well except having difficulty with urination and retention. Patient has to have straight cath. He is also having problems with constipation. His creatinine remains about 3.5. His blood pressure is stable. Denies any chest pain. Doesn't appear to be in acute respiratory distress. Tolerating activity. 02/07/2018: This patient is clinically stable. Seemed to be little more active. Still having difficulty with urination and has Narvaez catheter. Arrangements are being made for his transfer to a nursing facility with rehab. Meanwhile current medical therapy to be continued. 02/08/2018: The patient is complaining of intermittent shortness of breath. His blood pressure also has been on low. His creatinine is up to 3.8. BUN is up to 100. Denies any chest pain, no palpitations. Nephrology evaluation is requested. Patient is also unable to ambulate. Patient is weak and not tolerating activity. Patient may have to go to rehab center. Objective - Vital Signs Vital signs: Vital Signs Temp 98.1 F 02/08/18 08:00 Pulse 72 02/08/18 11:23 Resp 18 02/08/18 08:00 BP 72/52 02/08/18 08:00 Pulse Ox 100 02/08/18 08:00 Intake & Output 02/07/18 02/08/18 02/08/18 18:59 06:59 18:59 Intake Total 360 Output Total 1800 250 Balance -1800 110 Weight 101.8 kg Intake: Oral 360 Output: Urine 1800 250 Other: Voiding Method Indwelling Catheter Indwelling Catheter Indwelling Catheter # Bowel Movements 0 ABP, PAP, CO, CI - Last Documented Arterial Blood Pressure 91/32 Pulmonary Artery Pressure 35/18 Cardiac Output 4.8 Cardiac Index 2.9 - Exam GENERAL EXAM: Patient is alert and oriented and in mild distress and seemed to be nauseated HEENT: Normocephalic. Normal reaction of pupils, equal size, normal range of extraocular motion. No erythema or exudates in the throat. NECK: No masses, no nuchal rigidity. CHEST: Postsurgical. LUNGS: Diminished breath sounds at bases HEART: Distant heart sounds ABDOMEN: Deferred SKIN: No rashes CENTRAL NERVOUS SYSTEM: No focal deficits. EXTREMITIES: No cyanosis, clubbing or edema. - Labs CBC & Chem 7: 02/08/18 04:37 02/08/18 04:37 Labs: Abnormal Lab Results - Last 24 Hours (Table) 02/07/18 02/08/18 02/08/18 Range/Units 16:49 01:59 04:32 WBC (3.8-10.6) k/uL RBC (4.30-5.90) m/uL Hgb (13.0-17.5) gm/dL Hct (39.0-53.0) % RDW (11.5-15.5) % Sodium (137-145) mmol/L Chloride (98-107) mmol/L BUN (9-20) mg/dL Creatinine (0.66-1.25) mg/dL POC Glucose (mg/dL) 141 H 64 L 109 H (75-99) mg/dL Phosphorus (2.5-4.5) mg/dL Magnesium (1.6-2.3) mg/dL Total Protein (6.3-8.2) g/dL Albumin (3.5-5.0) g/dL 02/08/18 02/08/18 02/08/18 Range/Units 04:37 04:37 11:53 WBC 15.5 H (3.8-10.6) k/uL RBC 3.08 L (4.30-5.90) m/uL Hgb 9.1 L (13.0-17.5) gm/dL Hct 26.9 L (39.0-53.0) % RDW 15.7 H (11.5-15.5) % Sodium 129 L (137-145) mmol/L Chloride 89 L (98-107) mmol/L BUN 100 H* (9-20) mg/dL Creatinine 3.80 H (0.66-1.25) mg/dL POC Glucose (mg/dL) 103 H (75-99) mg/dL Phosphorus 6.3 H (2.5-4.5) mg/dL Magnesium 2.8 H (1.6-2.3) mg/dL Total Protein 5.8 L (6.3-8.2) g/dL Albumin 3.3 L (3.5-5.0) g/dL Assessment and Plan (1) H/O coronary artery bypass surgery Current Visit: Yes Status: Acute Code(s): Z95.1 - PRESENCE OF AORTOCORONARY BYPASS GRAFT SNOMED Code(s): 047118129 (2) History of mitral valve repair Current Visit: Yes Status: Acute Code(s): Z98.890 - OTHER SPECIFIED POSTPROCEDURAL STATES SNOMED Code(s): 729041692 (3) COPD (chronic obstructive pulmonary disease) Current Visit: Yes Status: Chronic Code(s): J44.9 - CHRONIC OBSTRUCTIVE PULMONARY DISEASE, UNSPECIFIED SNOMED Code(s): 48662894 (4) Diabetes mellitus type 2 in obese Current Visit: Yes Status: Chronic Code(s): E11.69 - TYPE 2 DIABETES MELLITUS WITH OTHER SPECIFIED COMPLICATION; E66.9 - OBESITY, UNSPECIFIED SNOMED Code(s): 51165512 (5) Hyperlipidemia Current Visit: Yes Status: Chronic Code(s): E78.5 - HYPERLIPIDEMIA, UNSPECIFIED SNOMED Code(s): 31047860 (6) Acute kidney injury Current Visit: Yes Status: Acute Code(s): N17.9 - ACUTE KIDNEY FAILURE, UNSPECIFIED SNOMED Code(s): 21473784 Plan: Worsening renal failure. Still has difficulty voiding. Nephrology consult may be constricted. Patient is maintaining sinus rhythm. Physical therapy and increase activity as tolerated
[2018-02-08 17:17] LABS: Glucose,Whole Blood 192 mg/dL (75-99)
[2018-02-08 20:49] LABS: Glucose,Whole Blood 173 mg/dL (75-99)
[2018-02-08] MEDS: LINAGLIPTIN 5 MG TABLET PO SCH (20:52)
[2018-02-08] MEDS: APIXABAN 5 MG TAB PO SCH (20:52)
[2018-02-08] MEDS: SENNOSIDES-DOCUSATE SODIUM 1 EACH TAB PO SCH (21:00)
[2018-02-08 23:47] LABS: Appearance,Urine Cloudy (Clear); Bacteria,Urine Rare /hpf; Bilirubin,Urine Negative (Negative); Blood,Urine Moderate (Negative); Color,Urine Yellow; Glucose,Urine (UA) Negative (Negative); Hyaline Casts,Urine 20 /lpf (0-2); Ketones,Urine Negative (Negative); Leukocyte Esterase,Urine Large (Negative); Mucus,Urine Rare /hpf; Nitrite,Urine Negative (Negative); Protein,Urine 1+ (Negative); RBC,Urine 55 /hpf (0-5); Specific Gravity,Urine 1.017 (1.001-1.035); Urobilinogen,Urine <2.0 mg/dL (<2.0); WBC,Urine 28 /hpf (0-5)
[2018-02-09] MEDS: HYDROcodone/APAP 7.5-325MG 1 EACH TAB PO PRN ×5 (01:50→23:49)
[2018-02-09 02:06] LABS: Glucose,Whole Blood 184 mg/dL (75-99)
[2018-02-09 06:00] LABS: Glucose,Whole Blood 140 mg/dL (75-99)
[2018-02-09] MEDS: CALCIUM ACETATE 667 MG CAP PO SCH ×3 (06:07→17:12)
[2018-02-09] MEDS: PANTOPRAZOLE 40 MG TABLET PO SCH (06:07)
[2018-02-09] MEDS: METOCLOPRAMIDE 5 MG TAB PO SCH ×3 (06:07→17:12)
[2018-02-09] MEDS: INSULIN ASPART 100 UNIT/ML 1 ML 10 ML VIAL SQ SCH ×7 (06:58→21:08)
--- NOTE | 2018-02-09 07:25 | XR ---
EXAMINATION TYPE: XR chest 2V DATE OF EXAM: 02/09/2018 COMPARISON: 02/08/2018 HISTORY: 77 year-old male post cardiac surgery TECHNIQUE: Frontal and lateral views FINDINGS: Median sternotomy wires are present with post-CABG changes. Heart is borderline enlarged with mild di ffuse interstitial prominence. Small effusions are present on the lateral view. Suture anchor and pin s at the right humeral head. IMPRESSION: Borderline cardiomegaly with small pleural effusions and adjacent atelectasis and/or consolidation. M ild pulmonary vascular congestion remains. Effusions best seen on the lateral view. Overall similar a ppearance to prior.
[2018-02-09] MEDS: MUPIROCIN 2% OINT 22 GM TUBE NASAL SCH ×2 (07:48→20:13)
[2018-02-09] MEDS: APIXABAN 5 MG TAB PO SCH (07:48)
[2018-02-09] MEDS: ASPIRIN 81 MG PO SCH (07:48)
[2018-02-09] MEDS: guaiFENesin 600 MG TABLET.ER PO SCH ×2 (07:48→20:13)
[2018-02-09] MEDS: METOPROLOL TARTRATE 12.5 MG TAB PO SCH ×2 (07:49→20:05)
[2018-02-09] MEDS: ATORVASTATIN 40 MG TAB PO SCH (07:49)
[2018-02-09] MEDS: AMIODARONE 200 MG TAB PO SCH ×2 (07:49→20:12)
[2018-02-09] MEDS ORDERED: ACETAMINOPHEN TAB 325 MG TAB PO PRN ×2 (08:10)
[2018-02-09] MEDS ORDERED: MAGNESIUM HYDROXIDE 2,400 MG/10 ML CUP PO STA (08:10)
[2018-02-09] MEDS: INSULIN DETEMIR 100 UNIT/ML 10 ML VIAL SQ SCH ×2 (08:24→21:12)
[2018-02-09] MEDS: IPRATROPIUM-ALBUTEROL 3 ML NEB INHALATION SCH ×4 (08:26→20:19)
[2018-02-09] MEDS ORDERED: CEFUROXIME 250 MG TAB PO SCH (09:00)
[2018-02-09 09:07] LABS: Basophils % (A) 0 %; Eosinophils # (A) 0.3 k/uL (0-0.7); Eosinophils % (A) 2 %; HCT 28.6 % (39.0-53.0); HGB 9.3 gm/dL (13.0-17.5); Lymphocytes # (A) 0.4 k/uL (1.0-4.8); Lymphocytes % (A) 4 %; MCH 28.4 pg (25.0-35.0); MCHC 32.3 g/dL (31.0-37.0); MCV 87.8 fL (80.0-100.0); Mean Platelet Volume 8.3; Monocytes # (A) 0.9 k/uL (0-1.0); Monocytes % (A) 7 %; Neutrophils # (A) 10.3 k/uL (1.3-7.7); Neutrophils % (A) 85 %; Platelet Count 308 k/uL (150-450); RBC 3.26 m/uL (4.30-5.90); RDW 15.7 % (11.5-15.5); WBC 12.2 k/uL (3.8-10.6)
[2018-02-09 09:37] LABS: Albumin 3.3 g/dL (3.5-5.0); Calcium 8.6 mg/dL (8.4-10.2); Phosphorus 6.3 mg/dL (2.5-4.5); Potassium 4.4 mmol/L (3.5-5.1); Total Bilirubin 1.4 mg/dL (0.2-1.3); Total Protein 5.9 g/dL (6.3-8.2)
--- NOTE | 2018-02-09 10:00 | P.PN ---
<Pratima Shankar - Last Filed: 02/09/18 13:43> Subjective Progress Note Date: 02/09/18 HPI: Bird Maria~is a 77 y.o.~male~~being seen examined and evaluated today for consultation. This patient was admitted to the [facility] on 01/21/18-after coming in with complaints of dyspnea with no relief from his inhaler and having significant chest pressure. Patient was found to be in A. fib with RVR and was started on a heparin drip. Patient did have an echocardiogram which revealed an EF of 55% with severe mitral regurg is RVSP P was 53 mmHg. He also had a Karlee scan stress test that was also abnormal and a PATTIE with heart catheter, please see those notes for details. Currently the patient was transfered to [facility] on 01/27/18 for a CABG and mitral valve replacement. Upon examination the patient's resting up in bed on room air. He denies any shortness of breath cough or congestion at this time. He denies any smoking history however did state that he did chew tobacco on occasion. He denies any episodes of snoring however states that his sleep each night is very restless and he wakes up a minimum of 6 times per night. The patient has never had a workup for obstructive sleep apnea. Patient also states that he has had 2 previous surgeries 1 on his knee and shoulders and had no problems with anesthesiology, or waking up from surgery. Education has been provided to the patient on the extent of the surgery as well as education on mechanical ventilation intubation and extubation with possible best case scenario outcomes and worst-case scenario comes. Patient verbalizes understanding. Interval History: 01/29/18- patient is being seen examined and evaluated today on rounds. He is resting up in bed on room air. CT is feeling well. Has been ambulating in the hallway. Has been utilizing his incentive spirometer and pulling volumes of approximately 1750 arousals. He denies any cough or congestion at this time. Patient is planned for a CABG tomorrow with cardiothoracic surgery. Preop workup has been completed. He is afebrile no further complaints. All labs and reports have been reviewed. 01/30/2018: Patient seen and examined in the intensive care unit with nursing staff at bedside. The patient has returned from CABG and valve replacement. The patient is on full ventilator support. Ventilator has been adjusted and ABG reviewed. No current issues per nursing staff. 01/31-02/01/[address] АННА Smith notes 02/02/18- patient is being seen examined and evaluated today in the intensive care unit. Patient has been slightly hypotensive and his Primacor has been weaned off off, dopamine has been decreased as well per cardiothoracic services. He continues on insulin drip per protocol. Urine output has been 50- 60 miles per hour. He continues on 4 L of supplemental oxygen via nasal cannula. Does complain of some shortness of breath with exertion and activity. Denies any cough or congestion. He continues to have chest tubes in place to mediastinal and one left pleural itch chest tube did produce 50-70 miles overnight. Patient has been tolerating his clear liquid diet about 75% this morning. He did not need any BiPAP overnight. He continues to have epicardial pacer in VVI mode. He is afebrile no further complaints. 02/03/18- patient is being seen examined and evaluated today on rounds. Patient is resting up in bed on supplemental oxygen. He continues on Lasix drip insulin and dopamine. Patient has noted to have a BUN of 63, his Creatinine is increased to 3.7. Nephrology will be consulted. Chest x-ray was reviewed and does show some progressive pulmonary edema with small right-sided pleural effusion as well as cardiogenic fluid overload. Patient's blood pressure is stable. Per the nursing staff the patient may undergo his chest chest tube removal today. He is hemodynamically stable, no further complaints. Using his incentive spirometer. 02/04/18- patient is being seen examined and evaluated today on rounds. He remains in the intensive care unit. His BUN today is 77 g 3.6, nephrology was consulted yesterday and was subsequently canceled per the admitting team. Chest x-ray was reviewed and does show some improvement and CHF and improvement in the right pleural effusion. Patient was taken off Lasix drip and switched to IV push Lasix. His chest tube was removed yesterday. His dopamine is currently on hold. He is hemodynamically stable. 02/05/2018: Patient seen and examined. Patient has been transferred from the intensive care unit. His BUN today is 83 and creatinine is 3.4. The patient states he is having more pain today. He is currently sitting up in the chair. He states that he has had urinary retention and had to be straight cath this morning. He does have intermittent shortness of breath but states it is improving. 02/06/18-patient is being seen examined and evaluated today on the selective care unit. The patient was downgraded from the ICU yesterday. He is resting up in bed on room air. States he does not have any shortness of breath cough or congestion at this time. His BUN today is 87 g 3.5. He continues to have some urinary retention today and had to be straight cath again. The patient also complains of some constipation and is being put on a bowel regimen. He is afebrile no further complaints. Has been working with PT and OT. 02/07/18- patient is being seen examined and evaluated today on rounds. Patient is resting up in bed and intermittently using oxygen on and off. He still has some shortness of breath with exertion. He was able to have a bowel movement yesterday. He continues to have urinary retention and a Narvaez catheter had to be placed. Patient's BUN is 93 creatinine is 3.25. He continues with PT and OT patient will require inpatient rehab upon discharge. 02/08/2018: Patient seen and examined. Patient states he is starting to feel very weak and that he is having cramping in his hands. The patient states that he is getting very frustrated and wants to go home. He doesn't understand what is going on and why it's taking so long. He states his breathing has been okay. He did have an episode of hypotension this morning. Cardiothoracic surgery was notified. The patient's urine output has been adequate however his BUN is continually climbing to 100 and his creatinine today is 3.8. 02/09/18- patient is being seen examined and evaluated today on rounds. His breathing has been stable. He is on room air. He does have some shortness of breath with exertion and activity, denies any cough or congestion. Patient's Narvaez catheter was just discontinued this morning the patient has not urinated as of yet. It is noted today that his BUN continues to climb and is now 108 and his creatinine is now 3.8. Patient complains of achy restless legs. Objective - Vital Signs Vital signs: Vital Signs Temp 97.5 F L 02/09/18 07:37 Pulse 76 02/09/18 08:35 Resp 18 02/09/18 07:38 BP 99/61 02/09/18 07:37 Pulse Ox 95 02/09/18 07:37 Intake & Output 02/08/18 02/09/18 02/09/18 18:59 06:59 18:59 Intake Total 10 Output Total 500 320 150 Balance -500 -310 -150 Weight 102.9 kg Intake: IV 10 0.9 10 Output: Urine 500 320 150 Straight 150 Other: Voiding Method Indwelling Catheter Indwelling Catheter Indwelling Catheter # Voids 0 # Bowel Movements 0 ABP, PAP, CO, CI - Last Documented Arterial Blood Pressure 91/32 Pulmonary Artery Pressure 35/18 Cardiac Output 4.8 Cardiac Index 2.9 - Exam CONSTITUTIONAL: Patient is seen in no acute distress, generalized weakness HEENT: Head is normocephalic, atraumatic. Pupils are equal, conjunctiva clear. Neck is supple, trachea is midline. No JVD. RESPIRATORY: ~Lungs clear to auscultation. No wheezes, rales or rhonchi appreciated. Respirations are even and unlabored. Bases diminished bilaterally CARDIOVASCULAR: ~Heart is irregular rate and rhythm. S1 and S2 are heard. No murmur. GASTROINTESTINAL: ~Abdomen is soft, nontender, nondistended. Bowel sounds are positive. EXTREMITIES: ~No lower extremity edema is noted. Pedal pulses are palpable bilaterally. NEUROLOGICAL: ~Patient is alert and oriented 3. Speech is clear and interactive. No tremor is noted. - Labs CBC & Chem 7: 02/09/18 06:40 02/09/18 06:40 Labs: Abnormal Lab Results - Last 24 Hours (Table) 02/08/18 02/08/18 02/08/18 Range/Units 11:53 16:54 20:48 WBC (3.8-10.6) k/uL RBC (4.30-5.90) m/uL Hgb (13.0-17.5) gm/dL Hct (39.0-53.0) % RDW (11.5-15.5) % Neutrophils # (1.3-7.7) k/uL Lymphocytes # (1.0-4.8) k/uL Sodium (137-145) mmol/L Chloride (98-107) mmol/L BUN (9-20) mg/dL Creatinine (0.66-1.25) mg/dL Glucose (74-99) mg/dL POC Glucose (mg/dL) 103 H 192 H 173 H (75-99) mg/dL Phosphorus (2.5-4.5) mg/dL Magnesium (1.6-2.3) mg/dL Total Bilirubin (0.2-1.3) mg/dL Total Protein (6.3-8.2) g/dL Albumin (3.5-5.0) g/dL Urine Protein (Negative) Urine Blood (Negative) Ur Leukocyte Esterase (Negative) Urine RBC (0-5) /hpf Urine WBC (0-5) /hpf Urine Bacteria (None) /hpf Hyaline Casts (0-2) /lpf Urine Mucus (None) /hpf Ur Random Sodium (30-90) mmol/L 02/08/18 02/08/18 02/09/18 Range/Units 22:30 22:30 02:05 WBC (3.8-10.6) k/uL RBC (4.30-5.90) m/uL Hgb (13.0-17.5) gm/dL Hct (39.0-53.0) % RDW (11.5-15.5) % Neutrophils # (1.3-7.7) k/uL Lymphocytes # (1.0-4.8) k/uL Sodium (137-145) mmol/L Chloride (98-107) mmol/L BUN (9-20) mg/dL Creatinine (0.66-1.25) mg/dL Glucose (74-99) mg/dL POC Glucose (mg/dL) 184 H (75-99) mg/dL Phosphorus (2.5-4.5) mg/dL Magnesium (1.6-2.3) mg/dL Total Bilirubin (0.2-1.3) mg/dL Total Protein (6.3-8.2) g/dL Albumin (3.5-5.0) g/dL Urine Protein 1+ H (Negative) Urine Blood Moderate H (Negative) Ur Leukocyte Esterase Large H (Negative) Urine RBC 55 H (0-5) /hpf Urine WBC 28 H (0-5) /hpf Urine Bacteria Rare H (None) /hpf Hyaline Casts 20 H (0-2) /lpf Urine Mucus Rare H (None) /hpf Ur Random Sodium 7 L (30-90) mmol/L 02/09/18 02/09/18 02/09/18 Range/Units 05:58 06:40 06:40 WBC 12.2 H (3.8-10.6) k/uL RBC 3.26 L (4.30-5.90) m/uL Hgb 9.3 L (13.0-17.5) gm/dL Hct 28.6 L (39.0-53.0) % RDW 15.7 H (11.5-15.5) % Neutrophils # 10.3 H (1.3-7.7) k/uL Lymphocytes # 0.4 L (1.0-4.8) k/uL Sodium 128 L (137-145) mmol/L Chloride 88 L (98-107) mmol/L BUN 108 H* (9-20) mg/dL Creatinine 3.80 H (0.66-1.25) mg/dL Glucose 104 H (74-99) mg/dL POC Glucose (mg/dL) 140 H (75-99) mg/dL Phosphorus 6.3 H (2.5-4.5) mg/dL Magnesium 3.0 H (1.6-2.3) mg/dL Total Bilirubin 1.4 H (0.2-1.3) mg/dL Total Protein 5.9 L (6.3-8.2) g/dL Albumin 3.3 L (3.5-5.0) g/dL Urine Protein (Negative) Urine Blood (Negative) Ur Leukocyte Esterase (Negative) Urine RBC (0-5) /hpf Urine WBC (0-5) /hpf Urine Bacteria (None) /hpf Hyaline Casts (0-2) /lpf Urine Mucus (None) /hpf Ur Random Sodium (30-90) mmol/L Assessment and Plan Assessment: Assessment: Chest pain Severe mitral regurgitation, s/p MVR ASCAD, s/p CABG 80-90% stenosis of his right coronary artery 60-70% stenosis of the AV circumflex COPD Possible GHULAM Diabetes mellitus type 2 Hyperlipidemia Urinary retention Plan: s/p CABG Medications have been reviewed and will be continued as ordered. Swathi Adair reviewed from [facility] reviewed, suggestive of restrictive lung disease, however, without lung volumes and full PFT cannot definitively diagnose. Hemodynamics per CVTS Monitor I & O's Outpatient PFT and PSG recommended. Incentive spirometry and pulmonary hygiene. Supplemental oxygen to maintain oxygen saturations greater than 90% if needed. GI and DVT prophylaxis. Patient will also benefit from an outpatient PSG once medically stable and discharged from the hospital. Patient being evaluated for inpatient rehab, discharge planning We will continue to monitor labs/results and adjust treatment as necessary. Consult to nephrology canceled per primary team, patient's BUN and Creatinine continue to increase, would reconsider nephrology consult as the patient is starting to have symptoms of possible uremia and with his hypotension this morning, it is possible the renal function could worsen. The patient is also concerned and states he has never had problems with his kidneys in the past. Flexiril for Restless legs I performed an examination of the patient and discussed their management with the nurse practitioner. I have reviewed the nurse practitioner's note and agree with the documented findings and plan of care. <Lisbet Marte - Last Filed: 02/09/18 13:48> Objective - Vital Signs Vital signs: Vital Signs Temp 97.1 F L 02/09/18 12:00 Pulse 88 02/09/18 12:00 Resp 18 02/09/18 12:00 BP 113/78 02/09/18 12:00 Pulse Ox 98 02/09/18 12:00 Intake & Output 02/08/18 02/09/18 02/09/18 18:59 06:59 18:59 Intake Total 10 Output Total 500 320 150 Balance -500 -310 -150 Weight 102.9 kg Intake: IV 10 0.9 10 Output: Urine 500 320 150 Straight 150 Other: Voiding Method Indwelling Catheter Indwelling Catheter Indwelling Catheter # Voids 0 # Bowel Movements 0 ABP, PAP, CO, CI - Last Documented Arterial Blood Pressure 91/32 Pulmonary Artery Pressure 35/18 Cardiac Output 4.8 Cardiac Index 2.9 - Labs CBC & Chem 7: 02/09/18 06:40 02/09/18 06:40 Labs: Abnormal Lab Results - Last 24 Hours (Table) 02/08/18 02/08/18 02/08/18 Range/Units 16:54 20:48 22:30 WBC (3.8-10.6) k/uL RBC (4.30-5.90) m/uL Hgb (13.0-17.5) gm/dL Hct (39.0-53.0) % RDW (11.5-15.5) % Neutrophils # (1.3-7.7) k/uL Lymphocytes # (1.0-4.8) k/uL Sodium (137-145) mmol/L Chloride (98-107) mmol/L BUN (9-20) mg/dL Creatinine (0.66-1.25) mg/dL Glucose (74-99) mg/dL POC Glucose (mg/dL) 192 H 173 H (75-99) mg/dL Phosphorus (2.5-4.5) mg/dL Magnesium (1.6-2.3) mg/dL Total Bilirubin (0.2-1.3) mg/dL Total Protein (6.3-8.2) g/dL Albumin (3.5-5.0) g/dL Urine Protein (Negative) Urine Blood (Negative) Ur Leukocyte Esterase (Negative) Urine RBC (0-5) /hpf Urine WBC (0-5) /hpf Urine Bacteria (None) /hpf Hyaline Casts (0-2) /lpf Urine Mucus (None) /hpf Ur Random Sodium 7 L (30-90) mmol/L 02/08/18 02/09/18 02/09/18 Range/Units 22:30 02:05 05:58 WBC (3.8-10.6) k/uL RBC (4.30-5.90) m/uL Hgb (13.0-17.5) gm/dL Hct (39.0-53.0) % RDW (11.5-15.5) % Neutrophils # (1.3-7.7) k/uL Lymphocytes # (1.0-4.8) k/uL Sodium (137-145) mmol/L Chloride (98-107) mmol/L BUN (9-20) mg/dL Creatinine (0.66-1.25) mg/dL Glucose (74-99) mg/dL POC Glucose (mg/dL) 184 H 140 H (75-99) mg/dL Phosphorus (2.5-4.5) mg/dL Magnesium (1.6-2.3) mg/dL Total Bilirubin (0.2-1.3) mg/dL Total Protein (6.3-8.2) g/dL Albumin (3.5-5.0) g/dL Urine Protein 1+ H (Negative) Urine Blood Moderate H (Negative) Ur Leukocyte Esterase Large H (Negative) Urine RBC 55 H (0-5) /hpf Urine WBC 28 H (0-5) /hpf Urine Bacteria Rare H (None) /hpf Hyaline Casts 20 H (0-2) /lpf Urine Mucus Rare H (None) /hpf Ur Random Sodium (30-90) mmol/L 02/09/18 02/09/18 02/09/18 Range/Units 06:40 06:40 11:45 WBC 12.2 H (3.8-10.6) k/uL RBC 3.26 L (4.30-5.90) m/uL Hgb 9.3 L (13.0-17.5) gm/dL Hct 28.6 L (39.0-53.0) % RDW 15.7 H (11.5-15.5) % Neutrophils # 10.3 H (1.3-7.7) k/uL Lymphocytes # 0.4 L (1.0-4.8) k/uL Sodium 128 L (137-145) mmol/L Chloride 88 L (98-107) mmol/L BUN 108 H* (9-20) mg/dL Creatinine 3.80 H (0.66-1.25) mg/dL Glucose 104 H (74-99) mg/dL POC Glucose (mg/dL) 115 H (75-99) mg/dL Phosphorus 6.3 H (2.5-4.5) mg/dL Magnesium 3.0 H (1.6-2.3) mg/dL Total Bilirubin 1.4 H (0.2-1.3) mg/dL Total Protein 5.9 L (6.3-8.2) g/dL Albumin 3.3 L (3.5-5.0) g/dL Urine Protein (Negative) Urine Blood (Negative) Ur Leukocyte Esterase (Negative) Urine RBC (0-5) /hpf Urine WBC (0-5) /hpf Urine Bacteria (None) /hpf Hyaline Casts (0-2) /lpf Urine Mucus (None) /hpf Ur Random Sodium (30-90) mmol/L Microbiology - Last 24 Hours (Table) 02/08/18 22:30 Urine Culture - Preliminary Urine,Catheterized Assessment and Plan Assessment: Patient seen and examined. Complaining of severe leg cramps and pain. Will try Flexeril 5 mg TID PRN. Agree with nephrology consult, discussed with primary team. PT and OT. Rehab planning. Respiratory status is stable. ~Lisbet Marte,
--- NOTE | 2018-02-09 10:33 | P.PN ---
Subjective Progress Note Date: 02/09/18 Principal diagnosis: Severe mitral regurgitation. 2 vessel coronary artery disease. New onset preoperative paroxysmal atrial fibrillation. 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 POD #10 urgent mitral valve repair with a #30 mm [employer] annular flex band. Clip ligation of the left atrial appendage with a #35 mm AtriClip. Coronary bypass grafting 2 with reverse saphenous vein graft off the aorta to the circumflex artery and the right coronary artery. Endoscopic harvesting of the right greater saphenous vein. Complete left-sided maze procedure using radiofrequency ablation as well as cryoablation. Intraoperative transesophageal echocardiogram. Postoperative hypotension and low urine output requiring combination of IV pressors, lasix, and inotropic support secondary to low cardiac output, intravascular hypovolemia, an unexpected but potential outcome of surgery. Postoperative acute kidney injury, an unexpected but potential outcome of surgery secondary to hemodynamic instability. Postoperative urinary retention, an unexpected but potential outcome with the patient having a previous history of urinary retention after surgery. The patient is currently sitting up in bed in no acute distress. Does complain of chest pain when coughing, patient trying not to cough. Does complain of intermittent shortness of breath which is relieved with application of oxygen via nasal cannula. Denies nausea this morning. Patient is refusing to ambulate in the hallway, will only ambulate in the room. Does have complaints of restless legs. Objective - Vital Signs Vital signs: Vital Signs Temp 97.5 F L 02/09/18 07:37 Pulse 83 02/09/18 07:38 Resp 18 02/09/18 07:38 BP 99/61 02/09/18 07:37 Pulse Ox 95 02/09/18 07:37 Intake & Output 02/08/18 02/09/18 02/09/18 18:59 06:59 18:59 Intake Total 10 Output Total 500 320 150 Balance -500 -310 -150 Weight 102.9 kg Intake: IV 10 0.9 10 Output: Urine 500 320 150 Straight 150 Other: Voiding Method Indwelling Catheter Indwelling Catheter Indwelling Catheter # Voids 0 # Bowel Movements 0 ABP, PAP, CO, CI - Last Documented Arterial Blood Pressure 91/32 Pulmonary Artery Pressure 35/18 Cardiac Output 4.8 Cardiac Index 2.9 - Constitutional General appearance: Present: cooperative, no acute distress, obese - Respiratory Details: Lungs sounds diminished bilaterally. Respirations even, nonlabored. Currently on room air with oxygen saturation 98%. Able to achieve 2000 mL on his incentive spirometry. Weak cough, but better than yesterday. - Cardiovascular Details: S1, S2 present. Irregular rate and rhythm, controlled atrial fibrillation on telemetry. Sternum stable. Palpable peripheral pulses bilaterally. No edema present. No calf pain or tenderness noted. Antiembolism stockings, SCDs present. Heart hugger in place with patient demonstrating appropriate use. - Gastrointestinal Gastrointestinal Comment(s): Abdomen soft, round, nontender, nondistended. Active bowel sounds present 4 quadrants. Tolerating diet. Positive flatus, positive small BM. - Genitourinary Genitourinary Comment(s): Narvaez present draining clear, yellow urine. Output 320 mL overnight. - Integumentary Integumentary Comment(s): Skin is warm and dry with evidence of good perfusion. Anterior chest incision well approximated and covered with dry intact dressing. Right lower extremity EVH site well approximated, area of firmness present in the right inner thigh, common from tunnel created when harvesting vein. - Neurologic Neurologic: Present: CNII-XII intact - Musculoskeletal Musculoskeletal: Present: generalized weakness - Psychiatric Psychiatric: Present: A&O x's 3, appropriate affect, intact judgment & insight - Allied health notes Allied health notes reviewed: nursing - Labs CBC & Chem 7: 02/09/18 06:40 02/09/18 06:40 Labs: Abnormal Lab Results - Last 24 Hours (Table) 02/08/18 02/08/18 02/08/18 Range/Units 11:53 16:54 20:48 POC Glucose (mg/dL) 103 H 192 H 173 H (75-99) mg/dL Urine Protein (Negative) Urine Blood (Negative) Ur Leukocyte Esterase (Negative) Urine RBC (0-5) /hpf Urine WBC (0-5) /hpf Urine Bacteria (None) /hpf Hyaline Casts (0-2) /lpf Urine Mucus (None) /hpf Ur Random Sodium (30-90) mmol/L 02/08/18 02/08/18 02/09/18 Range/Units 22:30 22:30 02:05 POC Glucose (mg/dL) 184 H (75-99) mg/dL Urine Protein 1+ H (Negative) Urine Blood Moderate H (Negative) Ur Leukocyte Esterase Large H (Negative) Urine RBC 55 H (0-5) /hpf Urine WBC 28 H (0-5) /hpf Urine Bacteria Rare H (None) /hpf Hyaline Casts 20 H (0-2) /lpf Urine Mucus Rare H (None) /hpf Ur Random Sodium 7 L (30-90) mmol/L 02/09/18 Range/Units 05:58 POC Glucose (mg/dL) 140 H (75-99) mg/dL Urine Protein (Negative) Urine Blood (Negative) Ur Leukocyte Esterase (Negative) Urine RBC (0-5) /hpf Urine WBC (0-5) /hpf Urine Bacteria (None) /hpf Hyaline Casts (0-2) /lpf Urine Mucus (None) /hpf Ur Random Sodium (30-90) mmol/L - Imaging and Cardiology Chest x-ray: report reviewed, image reviewed Assessment and Plan (1) Paroxysmal atrial fibrillation Current Visit: Yes Status: Acute Code(s): I48.0 - PAROXYSMAL ATRIAL FIBRILLATION SNOMED Code(s): 734805625 (2) Acute kidney injury Current Visit: Yes Status: Acute Code(s): N17.9 - ACUTE KIDNEY FAILURE, UNSPECIFIED SNOMED Code(s): 01035808 (3) History of skin cancer Current Visit: No Status: Resolved Code(s): Z85.828 - PERSONAL HISTORY OF OTHER MALIGNANT NEOPLASM OF SKIN SNOMED Code(s): 918530347 (4) Asthma Current Visit: Yes Status: Acute Code(s): J45.909 - UNSPECIFIED ASTHMA, UNCOMPLICATED SNOMED Code(s): 858629266 (5) COPD (chronic obstructive pulmonary disease) Current Visit: Yes Status: Chronic Code(s): J44.9 - CHRONIC OBSTRUCTIVE PULMONARY DISEASE, UNSPECIFIED SNOMED Code(s): 26052922 (6) Diabetes mellitus type 2 in obese Current Visit: Yes Status: Chronic Code(s): E11.69 - TYPE 2 DIABETES MELLITUS WITH OTHER SPECIFIED COMPLICATION; E66.9 - OBESITY, UNSPECIFIED SNOMED Code(s): 29073934 (7) Enlarged prostate Current Visit: Yes Status: Chronic Code(s): N40.0 - BENIGN PROSTATIC HYPERPLASIA WITHOUT LOWER URINRY TRACT SYMP SNOMED Code(s): 845932711 (8) Hyperlipidemia Current Visit: Yes Status: Chronic Code(s): E78.5 - HYPERLIPIDEMIA, UNSPECIFIED SNOMED Code(s): 12492711 (9) Hypertension Current Visit: Yes Status: Chronic Code(s): I10 - ESSENTIAL (PRIMARY) HYPERTENSION SNOMED Code(s): 94394695 (10) Personal history of nicotine dependence Current Visit: No Status: Resolved Code(s): Z87.891 - PERSONAL HISTORY OF NICOTINE DEPENDENCE SNOMED Code(s): 12080235 (11) Presence of stent in coronary artery in patient with coronary artery disease Current Visit: Yes Status: Chronic Code(s): I25.10 - ATHSCL HEART DISEASE OF [place] CORONARY ARTERY W/O ANG PCTRS; Z95.5 - PRESENCE OF CORONARY ANGIOPLASTY IMPLANT AND GRAFT SNOMED Code(s): 564628802 (12) Severe mitral regurgitation by prior echocardiogram Current Visit: Yes Status: Chronic Code(s): I34.0 - NONRHEUMATIC MITRAL ( VALVE) INSUFFICIENCY SNOMED Code(s): 36521648 (13) Left carotid stenosis Current Visit: Yes Status: Chronic Code(s): I65.22 - OCCLUSION AND STENOSIS OF LEFT CAROTID ARTERY SNOMED Code(s): 213855838128598 Plan: 1. Continue low dose aspirin, statin, Lopressor. Will increase beta lencho therapy as tolerated. No FAUSTINO/ARB secondary to hypotension, CARLOS. 2. Continue amiodarone for A. fib prophylaxis. Will decrease dose to 200 mg daily on February 14. Eliquis ordered for anticoagulation. 3. No diuresis today. 4. Encourage incentive spirometry use 10 times every hour while awake. Encourage patient to cough. 5. Encourage continued smoking cessation. 6. Increase activity, ambulate as tolerated. PT/OT/cardiac rehab following. 7. Will monitor daily labs and chest x-rays. No need for nephrology consult as we will manage his acute kidney injury. 8. Continue Flomax. Will discontinue Narvaez catheter for second trial void. 9. Diabetic management per primary care service. Ceftin started per primary care for positive UA, await culture results. 10. GI/DVT prophylaxis. 11. Discharge planning in progress. Patient will need inpatient rehab at discharge. Dr. Diego was consulted and is following. 12. More recommendations as patient progresses. Time with Patient: Greater than 30
--- NOTE | 2018-02-09 11:27 | P.NPCON ---
History of Present Illness - Reason for Consult acute renal failure - History of Present Illness Reason for consultation: Acute kidney injury History of present illness: Patient is a 77-year-old male seen in consultation for acute kidney injury. Patient presented initially to [facility] with dyspnea and chest pain. He underwent cardiac catheterization on January 26 which revealed 80% stenosis of the RCA and 70% stenosis in the circumflex along with severe mitral regurgitation. He was subsequently transferred to [facility]. He was evaluated by cardiothoracic surgery and underwent mitral valve repair and CABG 2 on 01/30/2018. Patient became quite fluid overloaded and was started on Lasix drip along with Primacor and dopamine. Lasix was held starting yesterday. His sodium level has been gradually dropping and is down to 128 today. His creatinine was 0.7 on admission and is up to 3.8 today. BUN is also the 108. No melena or hematochezia. Denies any active bleeding. He denies use of NSAIDs. Denies family history of renal disease. Narvaez catheter was discontinued this morning and he hasn't voided since. His initial UA was completely benign. He is noted to have a preserved ejection fraction. Oral intake is fair. Denies any active chest pain or shortness of breath. Vital signs are stable. General: The patient appeared well nourished and normally developed. HEENT: Head exam is unremarkable. Neck is without jugular venous distension. LUNGS: Lungs are clear to auscultation and percussion. Breath sounds decreased. HEART: Rate and Rhythm are regular. First and second heart sounds normal. No murmurs, rubs or gallops. ABDOMEN: Abdominal exam reveals normal bowel sounds. Non-tender and non- distended. No evidence of peritonitis. EXTREMITITES: No clubbing, cyanosis, or edema. 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.), COPD , Diabetes Mellitus, Eye Disorder (Cataracts), GI Bleed (History of GI bleed, received blood products.), Hyperlipidemia, Hypertension, Osteoarthritis (OA), Prostate Disorder Additional Past Medical History / Comment(s): New onset of afib since admission to [facility] on 01/21/18 History of Any Multi-Drug Resistant Organisms: None Reported Past Surgical History: Heart Catheterization, Heart Catheterization With Stent, Joint Replacement (Left knee), Orthopedic Surgery (Left shoulder), Tonsillectomy Additional Past Surgical History / Comment(s): Right shoulder surgery, left knee replacement, colonoscopy with polypectomy, skin biopsy, cardiac stents X2 Past Anesthesia/Blood Transfusion Reactions: No Reported Reaction Date of Last Stent Placement:: unknown Past Psychological History: No Psychological Hx Reported Smoking Status: Former smoker (Quit 20 years ago.) Past Alcohol Use History: Rare (Maybe drinks one 6 pack of beer per year. ) Past Drug Use History: None Reported - Past Family History Mother Family Medical History: Asthma, COPD Father History Unknown: Yes (Mother 76 from COPD, and diabetes mellitus type 2, father at 58 secondary to [place], one sister 89 years old, for doctors to them with diabetes mellitus type 2) Family Medical History: Myocardial Infarction (RI) (Myocardial infarction in his 50s.) Medications and Allergies Home Medications Medication Instructions Recorded Confirmed Type Atorvastatin [Lipitor] 40 mg PO HS 01/27/18 01/27/18 History Benazepril HCl 10 mg PO HS 01/27/18 01/27/18 History Cholecalciferol (Vitamin D3) 2,000 unit PO HS 01/27/18 01/27/18 History [Vitamin D3] Magnesium Oxide [Mag-Ox] 400 mg PO HS 01/27/18 01/27/18 History Metoprolol Succinate (ER) [Toprol 50 mg PO HS 01/27/18 01/27/18 History Xl] Tamsulosin [Flomax] 0.8 mg PO HS 01/27/18 01/27/18 History glipiZIDE/METFORMIN HCL 2 tab PO HS 01/27/18 01/27/18 History [glipiZIDE/METFORMIN HCL 2.5-500 mg] sitaGLIPtin [Januvia] 100 mg PO 01/27/18 01/27/18 History Allergies Allergy/AdvReac Type Severity Reaction Status Date / Time No Known Allergies Allergy Verified 01/27/18 23:01 Physical Exam Vitals: Vital Signs Temp Pulse Pulse Resp BP BP Pulse Ox 02/09/18 08:35 76 02/09/18 08:28 76 02/09/18 07:38 83 18 02/09/18 07:37 97.5 F L 83 18 99/61 95 02/09/18 03:49 96 F L 77 16 131/60 98 02/09/18 00:00 96.9 F L 85 16 113/57 95 02/08/18 20:00 97 F L 73 16 107/56 98 02/08/18 19:36 74 02/08/18 19:29 74 02/08/18 16:00 78 16 131/56 96 02/08/18 12:00 98.1 F 76 16 112/60 98 02/08/18 11:23 72 02/08/18 11:13 72 Intake and Output 02/08/18 02/09/18 02/09/18 22:59 06:59 14:59 Intake Total 10 Output Total 320 150 Balance 10 -320 -150 Intake: IV 10 0.9 10 Output: Urine 320 150 Straight 150 Other: Voiding Method Indwelling Catheter Indwelling Catheter Indwelling Catheter # Voids 0 # Bowel Movements 0 0 Weight 102.9 kg Results - Lab Results Most recent lab results ABG pH 7.41 (7.35-7.45) 02/01/18 02:41 ABG pCO2 33 mmHg (35-45) L 02/01/18 02:41 ABG pO2 72 mmHg (83-108) L 02/01/18 02:41 ABG HCO3 21 mmol/L (21-25) 02/01/18 02:41 ABG O2 Saturation 95.1 % (94-97) 02/01/18 02:41 Calcium 8.6 mg/dL (8.4-10.2) 02/09/18 06:40 Phosphorus 6.3 mg/dL (2.5-4.5) H 02/09/18 06:40 Magnesium 3.0 mg/dL (1.6-2.3) H 02/09/18 06:40 02/09/18 06:40 02/09/18 06:40 Assessment and Plan Plan: Assessment: 1. Nonoliguric acute kidney injury secondary to ATN secondary to hypotension and diaphoresis. Creatinine peaked at 3.8 as of yesterday and is stable at 3.8 today. Initial urinalysis was completely benign. Baseline creatinine is near 1. 2. Hyponatremia secondary to poor solute intake and diuresis. His urine sodium was 7. 3. Coronary artery disease status post CABG 2 on 01/30/2018. 4. Severe mitral regurgitation status post mitral valve repair on 01/30/2018. 5. Anemia. Rule out iron deficiency. 6. Insulin-dependent diabetes mellitus. 7. Hyperphosphatemia maintained on PhosLo. 8. Atrial fibrillation. Rate controlled. Maintained on amiodarone and beta lencho. Plan: Continue to hold diuretics for now. Avoid nephrotoxic agents and hypotensive episodes. Monitor closely for urinary retention. Narvaez catheter was discontinued this morning. Encouraged oral intake. 1.2 L fluid restriction. Add protein supplementation with meals. Check serum and urine osmolality. Repeat electrolytes in the morning. Thank you for the consultation. I will continue to follow the patient with you during his hospital stay.
[2018-02-09 11:54] LABS: Glucose,Whole Blood 115 mg/dL (75-99)
--- NOTE | 2018-02-09 11:55 | P.PN ---
Subjective Progress Note Date: 02/09/18 Principal diagnosis: Status post CABG, mitral valve repair, urinary retention, acute kidney failure, BPH, anemia and UTI. This is a 69 HO pleasant gentleman patient of Dr. Robledo with underlying history of CAD with prior PCI stent placement, hypertension hypertensive cardiovascular disease hyperlipidemia and diabetes mellitus type 2 asthma OR arthritis COPD admitted to [facility] and was found on imaging studies secondary to his chest pain new onset atrial fibrillation with RVR and shortness of breath, cardiac cath performed 01/26/2018 showing 80% stenosis of RCA, 70% stenoses of the left circumflex involving the AV groove circumflex ostial portion, severe mitral regurgitation, dilated left ventricle ejection fraction 50-55%. He was transferred to [facility] for mitral valve placement and CABG 2 vessel critical stenosis involving left circumflex and right coronary artery. CABG most likely would be anticipated to be done January 30 He was seen at [facility] by , for pulmonary clearance, pertinent laboratories creatinine 1.01 hemoglobin 12.4 TSH 0.93 hemoglobin A1c not done,. Patient currently is on basal bolus Levemir and premeal coverage, instead of home oral medication, continue on Januvia 100 mg at bedtime, cardiology to see, Dr. Marte for consult and consult to Dr. Spicer cardiothoracic, Dr. Salas cardiology. He should maintain IV heparin 01/29: Patient is followed by Dr. Marte and Dr. VC Fry. Patient is scheduled for coronary artery bypass surgery and mitral valve replacement or repair on Friday. Blood sugars are running 156-193. Additional 2units of Novolog added premeal until surgery. Patient states his blood sugars are usually 100-130 at home. 01/30: Patient is going for surgery. 01/31 Patient is postoperative day 1 with mitral valve repair, coronary artery bypass grafting X2. Patient examined bed side. Appears tired. Complains of shortness of breath intermittently. Currently on 2 L of oxygen. Blood pressure continues to drop to systolic in low 80. Initiated on norepinephrine added low -dose. Chest x-ray suggested worsening vascular congestion and pleural effusion. Received 1 dose 80 mg IV Lasix today [place] catheter removed today. Patient is extubated since this morning. 02/01 Patient has increased cough and congestion, on 6 L nasal cannula. CXR concerning for cngestion and pleural effusion. on lasix drip. Lantus increased to 15 units bedtime to decrease insulin requirement. Continue trodjenta 5 mg po daily while in hospital. COntinue insulin drip, plan to switich to sliding scale if not much requirement on drip. Continue metoprolol 25 mg op BID 02/02: Patient has been evaluated by Dr. Diego and may be a candidate for inpatient. Primacor has been discontinued. Patient is currently on dopamine, insulin drip and Lasix drip. Epicardial wires and chest tube out today. Blood sugars are running between 101 and 174. White count has jumped to 19.7 and renal function is worsening with BUN 49 creatinine 3.06. The patient states he did eat his breakfast this morning. 02/03: Renal function continues to worsen with BUN 63 and creatinine 3.70 and phosphorus level continues to rise currently at 6.8. PhosLo will be added. Parathyroid hormone intact will be ordered. Consult with nephrology was added by pulmonary medicine but this was subsequently canceled. Regarding his blood sugars, insulin drip will be discontinued and Levemir will be increased to 20 units at bedtime. Patient is also on dopamine and insulin drips. Lasix drip was discontinued and patient switched to IV Lasix. tle. 02/04: 02/04: Patient is now off dopamine. Insulins will be adjusted to NovoLog 5 units with meals and Levemir 12 units twice daily and insulin drip will be discontinued. Ensure will be started as patient is eating very little. Repeat BUN 77 creatinine 3.60. Parathyroid intact is 114 and patient will need follow- up with nephrology as an outpatient. 02/05: Blood sugars are elevated and his morning 70/30 insulin will be increased to 23 units and evening to 20 units. Scheduled NovoLog will be increased to 8 units with meals. Patient ate about 75% of his dinner last night and 25% of his breakfast. He is taking some Ensure. Patient to be transferred to select care today. 02/06: Patient is now seen on the selective care unit. Repeat chest x-ray shows persistent mild pulmonary vascular congestion and trace right pleural effusion. Left pleural effusion has resolved. No pneumothorax. Blood sugars are improved on current regime running between 111 and 145. BUN is 87 and creatinine 3.5. Hemoglobin is 9.6. Patient is working with PT and OT and is easily fatigued. At this point still anticipating discharge to [facility] for inpatient rehab once patient is cleared by cardiothoracic surgery. 02/09: Patient's kidney function slightly red worse we'll consult nephrology, he is more medically stable and will need probably to go to rehab from here for a period of time is still debilitated. Had more hematoma and bruise on the right leg area side of his graft for his bypass. His mobility still significantly decreased currently. We will continue PTOT and plan possibly if his stable otherwise including kidney function and cardiovascular might be discharged in the next 2 days to rehab at [facility]. Objective - Vital Signs Vital signs: Vital Signs Temp 97.5 F L 02/09/18 07:37 Pulse 76 02/09/18 11:33 Resp 18 02/09/18 11:28 BP 99/61 02/09/18 07:37 Pulse Ox 95 02/09/18 07:37 Intake & Output 02/08/18 02/09/18 02/09/18 18:59 06:59 18:59 Intake Total 10 Output Total 500 320 150 Balance -500 -310 -150 Weight 102.9 kg Intake: IV 10 0.9 10 Output: Urine 500 320 150 Straight 150 Other: Voiding Method Indwelling Catheter Indwelling Catheter Indwelling Catheter # Voids 0 # Bowel Movements 0 ABP, PAP, CO, CI - Last Documented Arterial Blood Pressure 91/32 Pulmonary Artery Pressure 35/18 Cardiac Output 4.8 Cardiac Index 2.9 - Constitutional General appearance: Present: cooperative, disheveled, no acute distress, obese. Absent: average body habitus, mild distress, morbidly obese, severe distress, thin - EENT Eyes: Present: normal appearance. Absent: abnormal pupil, anicteric sclerae, disc margins sharp, edentulous, EOMI, PERRLA, fundus normal, photophobia, dentition normal, poor dentition, ptosis, scleral icterus ENT: Present: hard of hearing, pharyngeal erythema. Absent: hearing grossly normal, NA/AT, normal oropharynx, other, thrush, tonsillar exudates, tonsillar swelling Ears: bilateral: normal - Neck Neck: Present: normal ROM. Absent: lymphadenopathy, other, rigidity, stridor, thyromegaly Carotids: bilateral: upstroke normal Thyroid: bilateral: normal size - Respiratory Respiratory: left: dullness, rales, bilateral: diminished, wheezing, prolonged expiration - Cardiovascular Rhythm: regular Heart sounds: normal: S1, S2 Abnormal Heart Sounds: Present: systolic murmur, S3 Gallop - Gastrointestinal General gastrointestinal: Present: distended, normal bowel sounds, soft. Absent : absent bowel sounds, decreased bowel sounds, hepatomegaly, hyperactive bowel sounds, organomegaly, rigid, scaphoid, splenomegaly, tenderness, umbilical hernia, ventral hernia - Integumentary Integumentary: Present: cellulitis, normal, pale, rash. Absent: calor, cyanotic , decreased turgor, flushed, jaundiced, normal turgor, ulcer - Neurologic Neurologic: Present: CNII-XII intact - Musculoskeletal Musculoskeletal: Present: gait normal, generalized weakness, strength equal bilaterally. Absent: right sided weakness, left sided weakness - Psychiatric Psychiatric: Present: A&O x's 3, appropriate affect. Absent: intact judgment & insight - Labs CBC & Chem 7: 02/09/18 06:40 02/09/18 06:40 Labs: Abnormal Lab Results - Last 24 Hours (Table) 02/08/18 02/08/18 02/08/18 Range/Units 11:53 16:54 20:48 WBC (3.8-10.6) k/uL RBC (4.30-5.90) m/uL Hgb (13.0-17.5) gm/dL Hct (39.0-53.0) % RDW (11.5-15.5) % Neutrophils # (1.3-7.7) k/uL Lymphocytes # (1.0-4.8) k/uL Sodium (137-145) mmol/L Chloride (98-107) mmol/L BUN (9-20) mg/dL Creatinine (0.66-1.25) mg/dL Glucose (74-99) mg/dL POC Glucose (mg/dL) 103 H 192 H 173 H (75-99) mg/dL Phosphorus (2.5-4.5) mg/dL Magnesium (1.6-2.3) mg/dL Total Bilirubin (0.2-1.3) mg/dL Total Protein (6.3-8.2) g/dL Albumin (3.5-5.0) g/dL Urine Protein (Negative) Urine Blood (Negative) Ur Leukocyte Esterase (Negative) Urine RBC (0-5) /hpf Urine WBC (0-5) /hpf Urine Bacteria (None) /hpf Hyaline Casts (0-2) /lpf Urine Mucus (None) /hpf Ur Random Sodium (30-90) mmol/L 02/08/18 02/08/18 02/09/18 Range/Units 22:30 22:30 02:05 WBC (3.8-10.6) k/uL RBC (4.30-5.90) m/uL Hgb (13.0-17.5) gm/dL Hct (39.0-53.0) % RDW (11.5-15.5) % Neutrophils # (1.3-7.7) k/uL Lymphocytes # (1.0-4.8) k/uL Sodium (137-145) mmol/L Chloride (98-107) mmol/L BUN (9-20) mg/dL Creatinine (0.66-1.25) mg/dL Glucose (74-99) mg/dL POC Glucose (mg/dL) 184 H (75-99) mg/dL Phosphorus (2.5-4.5) mg/dL Magnesium (1.6-2.3) mg/dL Total Bilirubin (0.2-1.3) mg/dL Total Protein (6.3-8.2) g/dL Albumin (3.5-5.0) g/dL Urine Protein 1+ H (Negative) Urine Blood Moderate H (Negative) Ur Leukocyte Esterase Large H (Negative) Urine RBC 55 H (0-5) /hpf Urine WBC 28 H (0-5) /hpf Urine Bacteria Rare H (None) /hpf Hyaline Casts 20 H (0-2) /lpf Urine Mucus Rare H (None) /hpf Ur Random Sodium 7 L (30-90) mmol/L 02/09/18 02/09/18 02/09/18 Range/Units 05:58 06:40 06:40 WBC 12.2 H (3.8-10.6) k/uL RBC 3.26 L (4.30-5.90) m/uL Hgb 9.3 L (13.0-17.5) gm/dL Hct 28.6 L (39.0-53.0) % RDW 15.7 H (11.5-15.5) % Neutrophils # 10.3 H (1.3-7.7) k/uL Lymphocytes # 0.4 L (1.0-4.8) k/uL Sodium 128 L (137-145) mmol/L Chloride 88 L (98-107) mmol/L BUN 108 H* (9-20) mg/dL Creatinine 3.80 H (0.66-1.25) mg/dL Glucose 104 H (74-99) mg/dL POC Glucose (mg/dL) 140 H (75-99) mg/dL Phosphorus 6.3 H (2.5-4.5) mg/dL Magnesium 3.0 H (1.6-2.3) mg/dL Total Bilirubin 1.4 H (0.2-1.3) mg/dL Total Protein 5.9 L (6.3-8.2) g/dL Albumin 3.3 L (3.5-5.0) g/dL Urine Protein (Negative) Urine Blood (Negative) Ur Leukocyte Esterase (Negative) Urine RBC (0-5) /hpf Urine WBC (0-5) /hpf Urine Bacteria (None) /hpf Hyaline Casts (0-2) /lpf Urine Mucus (None) /hpf Ur Random Sodium (30-90) mmol/L Microbiology - Last 24 Hours (Table) 02/08/18 22:30 Urine Culture - Preliminary Urine,Catheterized Assessment and Plan Plan: 1. Status post CABG for 2 vessel with graft from the right leg area still have slight bit wheezing effect on it, patient is slightly but stable still seeing cardiothoracic pulmonary and will add nephrology. 2. Severe mitral regurgitation post mitral valve repair, Dr. Spicer from cardiovascular surgery. Cardiology is following. 3. Diabetes mellitus type 2 previous oral medications have been discontinued mainly Glucotrol and metformin, insulin drip to be discontinued. NovoLog 8 units with each meal and scale along with Levemir 23 units in the morning and 20 units at bedtime. 4. New onset atrial fibrillation, paroxysmal, currently on oral amiodarone and metoprolol tartrate 12.5 mg twice daily 5. 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 6. Hyperphosphatemia secondary to acute kidney injury. PhosLo added. Parathyroid hormone intact is elevated. 7. CAD with previous PCI and stent placement with recent cardiac cath [address] Reynolds found to have 60-70% stenosis involving left circumflex AV groove circumflex ostial portion, and RCA 80% stenosis mid RCA, EF 50-55% left ventricle end-diastolic pressure 14 severe mitral regurgitation. 8. Mild intermittent asthma without any current exacerbation with COPD and when necessary nebulizer, incentive spirometry, 9. Hypertensive cardiovascular disease. Patient on Lopressor. 10. History of skin cancer 11. Osteoarthritis, generalized. 12. Hyperlipidemia on Lipitor 40 mg daily 13. BPH without urinary tract symptomatology. Continue Flomax or 0.8 mg at bedtime daily. Monitor for urinary retention.
--- NOTE | 2018-02-09 12:08 | P.PN ---
Subjective Progress Note Date: 02/09/18 This is 77-year-old gentleman transferred here from [facility], patient has two-vessel coronary artery disease and severe mitral regurg. He is scheduled to undergo surgery tomorrow. Patient was seen and examined this morning, doing well, denies any chest pain in his breathing has been stable. Blood pressure 115/70 with a heart rate in the 90s, 95% on room air. 02/09/2018 Patient was seen and examined this morning, status post mitral valve repair and coronary artery bypass grafting surgery 2. Patient has ambulated in the room to the doorway this morning, complaining of restless legs this morning. Breathing overall is stable. Blood pressure 100/60 with a heart rate in the 80s , 95% on room air. White blood cell count 12.2, hemoglobin 9.3, platelet count 308. Sodium 128, potassium 4.4, BUN 108, creatinine 3.8. Objective - Vital Signs Vital signs: Vital Signs Temp 97.5 F L 02/09/18 07:37 Pulse 76 02/09/18 11:33 Resp 18 02/09/18 11:28 BP 99/61 02/09/18 07:37 Pulse Ox 95 02/09/18 07:37 Intake & Output 02/08/18 02/09/18 02/09/18 18:59 06:59 18:59 Intake Total 10 Output Total 500 320 150 Balance -500 -310 -150 Weight 102.9 kg Intake: IV 10 0.9 10 Output: Urine 500 320 150 Straight 150 Other: Voiding Method Indwelling Catheter Indwelling Catheter Indwelling Catheter # Voids 0 # Bowel Movements 0 ABP, PAP, CO, CI - Last Documented Arterial Blood Pressure 91/32 Pulmonary Artery Pressure 35/18 Cardiac Output 4.8 Cardiac Index 2.9 - Exam PHYSICAL EXAMINATION: HEENT: Head is atraumatic, normocephalic. Pupils equal, round. Neck is supple. There is no elevated jugular venous pressure. HEART EXAMINATION: Heart S1 S2 irregularly irregular . CHEST EXAMINATION: Lungs are clear with diminished air entry to bilateral bases. Sternum is stable. Heart had are in place. ABDOMEN: Soft, nontender. Bowel sounds are heard. No organomegaly noted. EXTREMITIES: 2+ peripheral pulses with no evidence of peripheral edema and no calf tenderness noted. Antiembolism stockings and SCDs in place. NEUROLOGIC patient is awake, alert and oriented -3. . - Labs CBC & Chem 7: 02/09/18 06:40 02/09/18 06:40 Labs: Abnormal Lab Results - Last 24 Hours (Table) 02/08/18 02/08/18 02/08/18 Range/Units 16:54 20:48 22:30 WBC (3.8-10.6) k/uL RBC (4.30-5.90) m/uL Hgb (13.0-17.5) gm/dL Hct (39.0-53.0) % RDW (11.5-15.5) % Neutrophils # (1.3-7.7) k/uL Lymphocytes # (1.0-4.8) k/uL Sodium (137-145) mmol/L Chloride (98-107) mmol/L BUN (9-20) mg/dL Creatinine (0.66-1.25) mg/dL Glucose (74-99) mg/dL POC Glucose (mg/dL) 192 H 173 H (75-99) mg/dL Phosphorus (2.5-4.5) mg/dL Magnesium (1.6-2.3) mg/dL Total Bilirubin (0.2-1.3) mg/dL Total Protein (6.3-8.2) g/dL Albumin (3.5-5.0) g/dL Urine Protein (Negative) Urine Blood (Negative) Ur Leukocyte Esterase (Negative) Urine RBC (0-5) /hpf Urine WBC (0-5) /hpf Urine Bacteria (None) /hpf Hyaline Casts (0-2) /lpf Urine Mucus (None) /hpf Ur Random Sodium 7 L (30-90) mmol/L 02/08/18 02/09/18 02/09/18 Range/Units 22:30 02:05 05:58 WBC (3.8-10.6) k/uL RBC (4.30-5.90) m/uL Hgb (13.0-17.5) gm/dL Hct (39.0-53.0) % RDW (11.5-15.5) % Neutrophils # (1.3-7.7) k/uL Lymphocytes # (1.0-4.8) k/uL Sodium (137-145) mmol/L Chloride (98-107) mmol/L BUN (9-20) mg/dL Creatinine (0.66-1.25) mg/dL Glucose (74-99) mg/dL POC Glucose (mg/dL) 184 H 140 H (75-99) mg/dL Phosphorus (2.5-4.5) mg/dL Magnesium (1.6-2.3) mg/dL Total Bilirubin (0.2-1.3) mg/dL Total Protein (6.3-8.2) g/dL Albumin (3.5-5.0) g/dL Urine Protein 1+ H (Negative) Urine Blood Moderate H (Negative) Ur Leukocyte Esterase Large H (Negative) Urine RBC 55 H (0-5) /hpf Urine WBC 28 H (0-5) /hpf Urine Bacteria Rare H (None) /hpf Hyaline Casts 20 H (0-2) /lpf Urine Mucus Rare H (None) /hpf Ur Random Sodium (30-90) mmol/L 02/09/18 02/09/18 02/09/18 Range/Units 06:40 06:40 11:45 WBC 12.2 H (3.8-10.6) k/uL RBC 3.26 L (4.30-5.90) m/uL Hgb 9.3 L (13.0-17.5) gm/dL Hct 28.6 L (39.0-53.0) % RDW 15.7 H (11.5-15.5) % Neutrophils # 10.3 H (1.3-7.7) k/uL Lymphocytes # 0.4 L (1.0-4.8) k/uL Sodium 128 L (137-145) mmol/L Chloride 88 L (98-107) mmol/L BUN 108 H* (9-20) mg/dL Creatinine 3.80 H (0.66-1.25) mg/dL Glucose 104 H (74-99) mg/dL POC Glucose (mg/dL) 115 H (75-99) mg/dL Phosphorus 6.3 H (2.5-4.5) mg/dL Magnesium 3.0 H (1.6-2.3) mg/dL Total Bilirubin 1.4 H (0.2-1.3) mg/dL Total Protein 5.9 L (6.3-8.2) g/dL Albumin 3.3 L (3.5-5.0) g/dL Urine Protein (Negative) Urine Blood (Negative) Ur Leukocyte Esterase (Negative) Urine RBC (0-5) /hpf Urine WBC (0-5) /hpf Urine Bacteria (None) /hpf Hyaline Casts (0-2) /lpf Urine Mucus (None) /hpf Ur Random Sodium (30-90) mmol/L Microbiology - Last 24 Hours (Table) 02/08/18 22:30 Urine Culture - Preliminary Urine,Catheterized Assessment and Plan Plan: Assessment and plan #1 coronary artery disease and severe mitral regurgitation, status post mitral valve repair and coronary artery bypass grafting surgery times 2. #2 hyperlipidemia #3 diabetes #4 hypertension Plan We will continue the current medications the patient is on, patient is been encouraged to continue ambulating in his room and continue the use of incentive spirometry. DNP note has been reviewed, I agree with a documented findings and plan of care. Patient was seen and examined.
[2018-02-09] MEDS: CYCLOBENZAPRINE 5 MG TAB PO PRN ×2 (15:31→21:12)
[2018-02-09] MEDS: MAGNESIUM HYDROXIDE 2,400 MG/10 ML CUP PO PRN (15:33)
[2018-02-09 17:03] LABS: Glucose,Whole Blood 154 mg/dL (75-99)
[2018-02-09 19:04] LABS: Iron Saturation 12.61 (15.00-50.00)
[2018-02-09] MEDS: APIXABAN 2.5 MG TABLET PO SCH (20:13)
[2018-02-09] MEDS: TAMSULOSIN 0.4 MG CAP.ER.24H PO SCH (20:13)
[2018-02-09] MEDS: SENNOSIDES-DOCUSATE SODIUM 1 EACH TAB PO SCH (20:13)
[2018-02-09 20:52] LABS: Glucose,Whole Blood 123 mg/dL (75-99)
[2018-02-09] MEDS: LINAGLIPTIN 5 MG TABLET PO SCH (21:09)
[2018-02-10] MEDS: HYDROcodone/APAP 7.5-325MG 1 EACH TAB PO PRN ×4 (03:29→21:23)
[2018-02-10 03:30] LABS: Glucose,Whole Blood 128 mg/dL (75-99)
[2018-02-10] MEDS: CYCLOBENZAPRINE 5 MG TAB PO PRN (05:06)
[2018-02-10 05:53] LABS: Glucose,Whole Blood 82 mg/dL (75-99)
[2018-02-10] MEDS: INSULIN ASPART 100 UNIT/ML 1 ML 10 ML VIAL SQ SCH ×7 (05:54→22:14)
[2018-02-10 06:46] LABS: Basophils % (A) 0 %; Eosinophils # (A) 0.3 k/uL (0-0.7); Eosinophils % (A) 2 %; HCT 28.1 % (39.0-53.0); HGB 9.1 gm/dL (13.0-17.5); Lymphocytes # (A) 0.6 k/uL (1.0-4.8); Lymphocytes % (A) 4 %; MCH 28.4 pg (25.0-35.0); MCHC 32.4 g/dL (31.0-37.0); MCV 87.8 fL (80.0-100.0); Mean Platelet Volume 7.2; Monocytes # (A) 1.2 k/uL (0-1.0); Monocytes % (A) 8 %; Neutrophils # (A) 12.3 k/uL (1.3-7.7); Neutrophils % (A) 84 %; Platelet Count 323 k/uL (150-450); RDW 15.8 % (11.5-15.5); WBC 14.7 k/uL (3.8-10.6)
[2018-02-10] MEDS: CALCIUM ACETATE 667 MG CAP PO SCH ×3 (06:52→17:21)
[2018-02-10] MEDS: PANTOPRAZOLE 40 MG TABLET PO SCH (06:52)
[2018-02-10] MEDS: METOCLOPRAMIDE 5 MG TAB PO SCH ×3 (06:52→17:21)
[2018-02-10 07:05] LABS: Albumin 3.4 g/dL (3.5-5.0); Calcium 8.4 mg/dL (8.4-10.2); Magnesium 3.5 mg/dL (1.6-2.3); Phosphorus 6.2 mg/dL (2.5-4.5); Potassium 4.6 mmol/L (3.5-5.1); Total Bilirubin 1.2 mg/dL (0.2-1.3); Total Protein 6.1 g/dL (6.3-8.2)
[2018-02-10] MEDS: IPRATROPIUM-ALBUTEROL 3 ML NEB INHALATION SCH ×4 (07:49→21:06)
--- NOTE | 2018-02-10 07:49 | XR ---
EXAMINATION TYPE: XR chest 2V DATE OF EXAM: 02/10/2018 COMPARISON: 02/09/2018 INDICATION: Post cardiac surgery TECHNIQUE: Frontal and lateral views of the chest are obtained. FINDINGS: The heart size is enlarged. The pulmonary vasculature is normal. Mild right basilar infiltrate is increasing likely on the basis of atelectasis. Some very minimal ple ural effusions may be present bilaterally. Mild retrocardiac infiltrate may be present. IMPRESSION: 1. Mild bibasilar infiltrates. Correlate for atelectasis. Mild pneumonia should be considered. Follow -up is recommended. 2. Mild cardiomegaly, stable.
--- NOTE | 2018-02-10 09:00 | P.PN ---
Subjective Progress Note Date: 02/10/18 Principal diagnosis: Severe mitral regurgitation. 2 vessel coronary artery disease. New onset preoperative paroxysmal atrial fibrillation. 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 POD #11 urgent mitral valve repair with a #30 mm Carbo[employer] annular flex band. Clip ligation of the left atrial appendage with a #35 mm AtriClip. Coronary bypass grafting 2 with reverse saphenous vein graft off the aorta to the circumflex artery and the right coronary artery. Endoscopic harvesting of the right greater saphenous vein. Complete left-sided maze procedure using radiofrequency ablation as well as cryoablation. Intraoperative transesophageal echocardiogram. Postoperative hypotension and low urine output requiring combination of IV pressors, lasix, and inotropic support secondary to low cardiac output, intravascular hypovolemia, an unexpected but potential outcome of surgery. Postoperative acute kidney injury, an unexpected but potential outcome of surgery secondary to hemodynamic instability. Postoperative urinary retention, an unexpected but potential outcome with the patient having a previous history of urinary retention after surgery. The patient is currently sitting up in bed in no acute distress. Denies chest pain, shortness of breath except with activity, and nausea this morning. Patient is refusing to ambulate in the hallway, will only ambulate in the room. Objective - Vital Signs Vital signs: Vital Signs Temp 97 F L 02/10/18 03:07 Pulse 86 02/10/18 05:13 Resp 16 02/10/18 05:13 BP 98/54 02/10/18 05:13 Pulse Ox 95 02/10/18 05:13 Intake & Output 02/09/18 02/10/18 02/10/18 18:59 06:59 18:59 Intake Total 240 20 Output Total 275 1300 Balance -35 -1280 Weight 103.6 kg Intake: IV 20 0.9 20 Oral 240 Output: Urine 250 700 Straight 225 600 Post Void Residual 25 600 Other: Voiding Method Indwelling Catheter Urinal ABP, PAP, CO, CI - Last Documented Arterial Blood Pressure 91/32 Pulmonary Artery Pressure 35/18 Cardiac Output 4.8 Cardiac Index 2.9 - Constitutional General appearance: Present: cooperative, no acute distress, obese - Respiratory Details: Lungs sounds diminished bilaterally. Respirations even, nonlabored. Currently on room air with oxygen saturation 95%. Able to achieve 1750 mL on his incentive spirometry. Nonproductive cough. - Cardiovascular Details: S1, S2 present. Irregular rate and rhythm, controlled atrial fibrillation on telemetry. Sternum stable. Palpable peripheral pulses bilaterally. No edema present. No calf pain or tenderness noted. Antiembolism stockings, SCDs present. Heart hugger in place with patient demonstrating appropriate use. - Gastrointestinal Gastrointestinal Comment(s): Abdomen soft, round, nontender, nondistended. Active bowel sounds present 4 quadrants. Tolerating diet. Positive flatus, positive small BM. - Genitourinary Genitourinary Comment(s): Ness discontinued yesterday per urology recommendations. Patient did void small amounts yesterday. Straight catheterization was necessary this morning for 600 mL. - Integumentary Integumentary Comment(s): Skin is warm and dry with evidence of good perfusion. Anterior chest incision well approximated and covered with dry intact dressing. Right lower extremity EVH site well approximated, area of firmness present in the right inner thigh, common from tunnel created when harvesting vein. - Neurologic Neurologic: Present: CNII-XII intact - Musculoskeletal Musculoskeletal: Present: generalized weakness - Psychiatric Psychiatric: Present: A&O x's 3, appropriate affect, intact judgment & insight - Allied health notes Allied health notes reviewed: nursing - Labs CBC & Chem 7: 02/10/18 06:05 02/10/18 06:05 Labs: Abnormal Lab Results - Last 24 Hours (Table) 02/09/18 02/09/18 02/09/18 Range/Units 06:40 06:40 06:41 WBC 12.2 H (3.8-10.6) k/uL RBC 3.26 L (4.30-5.90) m/uL Hgb 9.3 L (13.0-17.5) gm/dL Hct 28.6 L (39.0-53.0) % RDW 15.7 H (11.5-15.5) % Neutrophils # 10.3 H (1.3-7.7) k/uL Lymphocytes # 0.4 L (1.0-4.8) k/uL Monocytes # (0-1.0) k/uL Sodium 128 L (137-145) mmol/L Chloride 88 L (98-107) mmol/L BUN 108 H* (9-20) mg/dL Creatinine 3.80 H (0.66-1.25) mg/dL Glucose 104 H (74-99) mg/dL POC Glucose (mg/dL) (75-99) mg/dL Phosphorus 6.3 H (2.5-4.5) mg/dL Magnesium 3.0 H (1.6-2.3) mg/dL Iron 30 L (65-175) ug/dL Iron Saturation 12.61 L (15.00-50.00) Ferritin 672.8 H (22.0-322.0) ng/mL Total Bilirubin 1.4 H (0.2-1.3) mg/dL Total Protein 5.9 L (6.3-8.2) g/dL Albumin 3.3 L (3.5-5.0) g/dL Ur Random Sodium (30-90) mmol/L 02/09/18 02/09/18 02/09/18 Range/Units 11:45 17:01 20:51 WBC (3.8-10.6) k/uL RBC (4.30-5.90) m/uL Hgb (13.0-17.5) gm/dL Hct (39.0-53.0) % RDW (11.5-15.5) % Neutrophils # (1.3-7.7) k/uL Lymphocytes # (1.0-4.8) k/uL Monocytes # (0-1.0) k/uL Sodium (137-145) mmol/L Chloride (98-107) mmol/L BUN (9-20) mg/dL Creatinine (0.66-1.25) mg/dL Glucose (74-99) mg/dL POC Glucose (mg/dL) 115 H 154 H 123 H (75-99) mg/dL Phosphorus (2.5-4.5) mg/dL Magnesium (1.6-2.3) mg/dL Iron (65-175) ug/dL Iron Saturation (15.00-50.00) Ferritin (22.0-322.0) ng/mL Total Bilirubin (0.2-1.3) mg/dL Total Protein (6.3-8.2) g/dL Albumin (3.5-5.0) g/dL Ur Random Sodium (30-90) mmol/L 02/09/18 02/10/18 02/10/18 Range/Units 23:00 03:28 06:05 WBC 14.7 H (3.8-10.6) k/uL RBC 3.20 L (4.30-5.90) m/uL Hgb 9.1 L (13.0-17.5) gm/dL Hct 28.1 L (39.0-53.0) % RDW 15.8 H (11.5-15.5) % Neutrophils # 12.3 H (1.3-7.7) k/uL Lymphocytes # 0.6 L (1.0-4.8) k/uL Monocytes # 1.2 H (0-1.0) k/uL Sodium (137-145) mmol/L Chloride (98-107) mmol/L BUN (9-20) mg/dL Creatinine (0.66-1.25) mg/dL Glucose (74-99) mg/dL POC Glucose (mg/dL) 128 H (75-99) mg/dL Phosphorus (2.5-4.5) mg/dL Magnesium (1.6-2.3) mg/dL Iron (65-175) ug/dL Iron Saturation (15.00-50.00) Ferritin (22.0-322.0) ng/mL Total Bilirubin (0.2-1.3) mg/dL Total Protein (6.3-8.2) g/dL Albumin (3.5-5.0) g/dL Ur Random Sodium 5 L (30-90) mmol/L 02/10/18 Range/Units 06:05 WBC (3.8-10.6) k/uL RBC (4.30-5.90) m/uL Hgb (13.0-17.5) gm/dL Hct (39.0-53.0) % RDW (11.5-15.5) % Neutrophils # (1.3-7.7) k/uL Lymphocytes # (1.0-4.8) k/uL Monocytes # (0-1.0) k/uL Sodium 126 L (137-145) mmol/L Chloride 86 L (98-107) mmol/L BUN 109 H* (9-20) mg/dL Creatinine 4.00 H (0.66-1.25) mg/dL Glucose 55 L (74-99) mg/dL POC Glucose (mg/dL) (75-99) mg/dL Phosphorus 6.2 H (2.5-4.5) mg/dL Magnesium 3.5 H (1.6-2.3) mg/dL Iron (65-175) ug/dL Iron Saturation (15.00-50.00) Ferritin (22.0-322.0) ng/mL Total Bilirubin (0.2-1.3) mg/dL Total Protein 6.1 L (6.3-8.2) g/dL Albumin 3.4 L (3.5-5.0) g/dL Ur Random Sodium (30-90) mmol/L Microbiology - Last 24 Hours (Table) 02/08/18 22:30 Urine Culture - Preliminary Urine,Catheterized - Imaging and Cardiology Chest x-ray: image reviewed Assessment and Plan (1) Paroxysmal atrial fibrillation Current Visit: Yes Status: Acute Code(s): I48.0 - PAROXYSMAL ATRIAL FIBRILLATION SNOMED Code(s): 414388560 (2) Acute kidney injury Current Visit: Yes Status: Acute Code(s): N17.9 - ACUTE KIDNEY FAILURE, UNSPECIFIED SNOMED Code(s): 82906562 (3) History of skin cancer Current Visit: No Status: Resolved Code(s): Z85.828 - PERSONAL HISTORY OF OTHER MALIGNANT NEOPLASM OF SKIN SNOMED Code(s): 392690334 (4) Asthma Current Visit: Yes Status: Acute Code(s): J45.909 - UNSPECIFIED ASTHMA, UNCOMPLICATED SNOMED Code(s): 671753454 (5) COPD (chronic obstructive pulmonary disease) Current Visit: Yes Status: Chronic Code(s): J44.9 - CHRONIC OBSTRUCTIVE PULMONARY DISEASE, UNSPECIFIED SNOMED Code(s): 94119217 (6) Diabetes mellitus type 2 in obese Current Visit: Yes Status: Chronic Code(s): E11.69 - TYPE 2 DIABETES MELLITUS WITH OTHER SPECIFIED COMPLICATION; E66.9 - OBESITY, UNSPECIFIED SNOMED Code(s): 50441987 (7) Enlarged prostate Current Visit: Yes Status: Chronic Code(s): N40.0 - BENIGN PROSTATIC HYPERPLASIA WITHOUT LOWER URINRY TRACT SYMP SNOMED Code(s): 834854084 (8) Hyperlipidemia Current Visit: Yes Status: Chronic Code(s): E78.5 - HYPERLIPIDEMIA, UNSPECIFIED SNOMED Code(s): 66696047 (9) Hypertension Current Visit: Yes Status: Chronic Code(s): I10 - ESSENTIAL (PRIMARY) HYPERTENSION SNOMED Code(s): 22230117 (10) Personal history of nicotine dependence Current Visit: No Status: Resolved Code(s): Z87.891 - PERSONAL HISTORY OF NICOTINE DEPENDENCE SNOMED Code(s): 82175743 (11) Presence of stent in coronary artery in patient with coronary artery disease Current Visit: Yes Status: Chronic Code(s): I25.10 - ATHSCL HEART DISEASE OF [place] CORONARY ARTERY W/O ANG PCTRS; Z95.5 - PRESENCE OF CORONARY ANGIOPLASTY IMPLANT AND GRAFT SNOMED Code(s): 823791317 (12) Severe mitral regurgitation by prior echocardiogram Current Visit: Yes Status: Chronic Code(s): I34.0 - NONRHEUMATIC MITRAL ( VALVE) INSUFFICIENCY SNOMED Code(s): 65561545 (13) Left carotid stenosis Current Visit: Yes Status: Chronic Code(s): I65.22 - OCCLUSION AND STENOSIS OF LEFT CAROTID ARTERY SNOMED Code(s): 983795328727272 Plan: 1. Continue low dose aspirin, statin, Lopressor. Will increase beta lencho therapy as tolerated. FAUSTINO/ARB contraindicated secondary to hypotension, CARLOS. 2. Continue amiodarone for A. fib prophylaxis. Will decrease dose to 200 mg daily on February 14. Eliquis ordered for anticoagulation. 3. Nephrology consulted per primary care service secondary to continued increased BUN/creatinine. Appreciate recommendations. No nephrotoxic agents. 4. Urinalysis positive for large amount leukocyte esterase, moderate blood, rare bacteria, negative nitrites with culture still pending. Patient placed on Ceftin per primary care service. 5. Encourage incentive spirometry use 10 times every hour while awake. Encourage patient to cough. 6. Encourage continued smoking cessation. 7. Increase activity, ambulate as tolerated. PT/OT/cardiac rehab following. 8. Will monitor daily labs and chest x-rays. 9. Continue Flomax. Continue to bladder scan after every void or every 6 hours , will reinsert ness if patient continues to have high residuals. 10. Diabetic management per primary care service. 11. GI/DVT prophylaxis. 12. Discharge planning in progress. Patient will need rehab at discharge. Dr. Diego was consulted and is following. Insurance approval obtained for possible transfer to inpatient rehab later today vs. tomorrow. Patient will need to have consults for cardiology, nephrology, and urology at [facility]. 13. More recommendations as patient progresses. Time with Patient: Greater than 30
[2018-02-10] MEDS: AMIODARONE 200 MG TAB PO SCH ×2 (09:04→20:16)
[2018-02-10] MEDS: CEFUROXIME 250 MG TAB PO SCH (09:04)
[2018-02-10] MEDS: ASPIRIN 81 MG PO SCH (09:04)
--- NOTE | 2018-02-10 09:04 | P.PN ---
Subjective Patient is seen in follow-up for acute kidney injury. His baseline creatinine is 1 and is elevated at 4.0 today. BUN is up to 109. Patient was receiving IV diuresis H was discontinued on February 08. Oral intake is just fair. Narvaez catheter was discontinued yesterday but he did require straight catheterization for retention and 600 mL of urine was obtained. Denies chest pain or shortness of breath. He is status post CABG 2 and mitral valve repair done 01/30/2018. Vital signs are stable. General: The patient appeared well nourished and normally developed. HEENT: Head exam is unremarkable. Neck is without jugular venous distension. LUNGS: Lungs are clear to auscultation and percussion. Breath sounds decreased. HEART: Rate and Rhythm are regular. First and second heart sounds normal. No murmurs, rubs or gallops. ABDOMEN: Abdominal exam reveals normal bowel sounds. Non-tender and non- distended. No evidence of peritonitis. EXTREMITITES: No clubbing, cyanosis, or edema. Objective - Vital Signs Vital signs: Vital Signs Temp 97 F L 02/10/18 03:07 Pulse 88 02/10/18 08:03 Resp 16 02/10/18 05:13 BP 98/54 02/10/18 05:13 Pulse Ox 96 02/10/18 07:51 Intake & Output 02/09/18 02/10/18 02/10/18 18:59 06:59 18:59 Intake Total 240 20 Output Total 275 1300 Balance -35 -1280 Weight 103.6 kg Intake: IV 20 0.9 20 Oral 240 Output: Urine 250 700 Straight 225 600 Post Void Residual 25 600 Other: Voiding Method Indwelling Catheter Urinal ABP, PAP, CO, CI - Last Documented Arterial Blood Pressure 91/32 Pulmonary Artery Pressure 35/18 Cardiac Output 4.8 Cardiac Index 2.9 - Labs CBC & Chem 7: 02/10/18 06:05 02/10/18 06:05 Labs: Abnormal Lab Results - Last 24 Hours (Table) 02/09/18 02/09/18 02/09/18 Range/Units 06:40 06:40 06:41 WBC 12.2 H (3.8-10.6) k/uL RBC 3.26 L (4.30-5.90) m/uL Hgb 9.3 L (13.0-17.5) gm/dL Hct 28.6 L (39.0-53.0) % RDW 15.7 H (11.5-15.5) % Neutrophils # 10.3 H (1.3-7.7) k/uL Lymphocytes # 0.4 L (1.0-4.8) k/uL Monocytes # (0-1.0) k/uL Sodium 128 L (137-145) mmol/L Chloride 88 L (98-107) mmol/L BUN 108 H* (9-20) mg/dL Creatinine 3.80 H (0.66-1.25) mg/dL Glucose 104 H (74-99) mg/dL POC Glucose (mg/dL) (75-99) mg/dL Phosphorus 6.3 H (2.5-4.5) mg/dL Magnesium 3.0 H (1.6-2.3) mg/dL Iron 30 L (65-175) ug/dL Iron Saturation 12.61 L (15.00-50.00) Ferritin 672.8 H (22.0-322.0) ng/mL Total Bilirubin 1.4 H (0.2-1.3) mg/dL Total Protein 5.9 L (6.3-8.2) g/dL Albumin 3.3 L (3.5-5.0) g/dL Ur Random Sodium (30-90) mmol/L 02/09/18 02/09/18 02/09/18 Range/Units 11:45 17:01 20:51 WBC (3.8-10.6) k/uL RBC (4.30-5.90) m/uL Hgb (13.0-17.5) gm/dL Hct (39.0-53.0) % RDW (11.5-15.5) % Neutrophils # (1.3-7.7) k/uL Lymphocytes # (1.0-4.8) k/uL Monocytes # (0-1.0) k/uL Sodium (137-145) mmol/L Chloride (98-107) mmol/L BUN (9-20) mg/dL Creatinine (0.66-1.25) mg/dL Glucose (74-99) mg/dL POC Glucose (mg/dL) 115 H 154 H 123 H (75-99) mg/dL Phosphorus (2.5-4.5) mg/dL Magnesium (1.6-2.3) mg/dL Iron (65-175) ug/dL Iron Saturation (15.00-50.00) Ferritin (22.0-322.0) ng/mL Total Bilirubin (0.2-1.3) mg/dL Total Protein (6.3-8.2) g/dL Albumin (3.5-5.0) g/dL Ur Random Sodium (30-90) mmol/L 02/09/18 02/10/18 02/10/18 Range/Units 23:00 03:28 06:05 WBC 14.7 H (3.8-10.6) k/uL RBC 3.20 L (4.30-5.90) m/uL Hgb 9.1 L (13.0-17.5) gm/dL Hct 28.1 L (39.0-53.0) % RDW 15.8 H (11.5-15.5) % Neutrophils # 12.3 H (1.3-7.7) k/uL Lymphocytes # 0.6 L (1.0-4.8) k/uL Monocytes # 1.2 H (0-1.0) k/uL Sodium (137-145) mmol/L Chloride (98-107) mmol/L BUN (9-20) mg/dL Creatinine (0.66-1.25) mg/dL Glucose (74-99) mg/dL POC Glucose (mg/dL) 128 H (75-99) mg/dL Phosphorus (2.5-4.5) mg/dL Magnesium (1.6-2.3) mg/dL Iron (65-175) ug/dL Iron Saturation (15.00-50.00) Ferritin (22.0-322.0) ng/mL Total Bilirubin (0.2-1.3) mg/dL Total Protein (6.3-8.2) g/dL Albumin (3.5-5.0) g/dL Ur Random Sodium 5 L (30-90) mmol/L 02/10/18 Range/Units 06:05 WBC (3.8-10.6) k/uL RBC (4.30-5.90) m/uL Hgb (13.0-17.5) gm/dL Hct (39.0-53.0) % RDW (11.5-15.5) % Neutrophils # (1.3-7.7) k/uL Lymphocytes # (1.0-4.8) k/uL Monocytes # (0-1.0) k/uL Sodium 126 L (137-145) mmol/L Chloride 86 L (98-107) mmol/L BUN 109 H* (9-20) mg/dL Creatinine 4.00 H (0.66-1.25) mg/dL Glucose 55 L (74-99) mg/dL POC Glucose (mg/dL) (75-99) mg/dL Phosphorus 6.2 H (2.5-4.5) mg/dL Magnesium 3.5 H (1.6-2.3) mg/dL Iron (65-175) ug/dL Iron Saturation (15.00-50.00) Ferritin (22.0-322.0) ng/mL Total Bilirubin (0.2-1.3) mg/dL Total Protein 6.1 L (6.3-8.2) g/dL Albumin 3.4 L (3.5-5.0) g/dL Ur Random Sodium (30-90) mmol/L Microbiology - Last 24 Hours (Table) 02/08/18 22:30 Urine Culture - Preliminary Urine,Catheterized Assessment and Plan Plan: Assessment: 1. Nonoliguric acute kidney injury secondary to ATN secondary to hypotension and diuretics. Creatinine 4.0 today. Initial urinalysis was completely benign. Baseline creatinine is near 1. 2. Hyponatremia secondary to poor solute intake and diuresis. His urine sodium was 7 and repeat was 5. 3. Coronary artery disease status post CABG 2 on 01/30/2018. 4. Severe mitral regurgitation status post mitral valve repair on 01/30/2018. 5. Anemia. Iron deficiency noted. 6. Insulin-dependent diabetes mellitus. 7. Hyperphosphatemia maintained on PhosLo. 8. Atrial fibrillation. Rate controlled. Maintained on amiodarone and beta lencho. 9. Urinary retention. Narvaez catheter discontinued yesterday. He's been requiring straight catheterizations. Plan: Start normal saline at 50 mL an hour. Continue to hold diuretics for now. Avoid nephrotoxic agents and hypotensive episodes. Monitor closely for urinary retention. May need Narvaez catheter reinserted. Encouraged oral intake. 1.2 L fluid restriction. Maintain protein supplementation with meals. Repeat sodium level this evening and again in the morning. Ferrlecit 125 mg IV daily for 3 days. First dose today. Check renal uls.
[2018-02-10] MEDS: APIXABAN 2.5 MG TABLET PO SCH ×2 (09:05→20:16)
[2018-02-10] MEDS: guaiFENesin 600 MG TABLET.ER PO SCH ×2 (09:05→20:16)
[2018-02-10] MEDS: MUPIROCIN 2% OINT 22 GM TUBE NASAL SCH ×2 (09:05→20:16)
[2018-02-10] MEDS: ATORVASTATIN 40 MG TAB PO SCH (09:05)
[2018-02-10] MEDS: INSULIN DETEMIR 100 UNIT/ML 10 ML VIAL SQ SCH ×2 (09:06→20:46)
[2018-02-10] MEDS: METOPROLOL TARTRATE 12.5 MG TAB PO SCH ×2 (09:06→20:15)
[2018-02-10] MEDS ORDERED: SODIUM CHLORIDE 0.9% 1,000 ML IV SCH (09:15)
[2018-02-10] MEDS: SODIUM FERRIC GLUCONAT-SUCROSE 125 MG in SODIUM CHLORIDE 0.9% 100 ML IVPB SCH (09:45)
--- NOTE | 2018-02-10 09:55 | P.PN ---
<Pratima Shankar - Last Filed: 02/10/18 12:41> Subjective Progress Note Date: 02/10/18 HPI: Bird Maria~is a 77 y.o.~male~~being seen examined and evaluated today for consultation. This patient was admitted to the [facility] on 01/21/18-after coming in with complaints of dyspnea with no relief from his inhaler and having significant chest pressure. Patient was found to be in A. fib with RVR and was started on a heparin drip. Patient did have an echocardiogram which revealed an EF of 55% with severe mitral regurg is RVSP P was 53 mmHg. He also had a Karlee scan stress test that was also abnormal and a PATTIE with heart catheter, please see those notes for details. Currently the patient was transfered to [facility] on 01/27/18 for a CABG and mitral valve replacement. Upon examination the patient's resting up in bed on room air. He denies any shortness of breath cough or congestion at this time. He denies any smoking history however did state that he did chew tobacco on occasion. He denies any episodes of snoring however states that his sleep each night is very restless and he wakes up a minimum of 6 times per night. The patient has never had a workup for obstructive sleep apnea. Patient also states that he has had 2 previous surgeries 1 on his knee and shoulders and had no problems with anesthesiology, or waking up from surgery. Education has been provided to the patient on the extent of the surgery as well as education on mechanical ventilation intubation and extubation with possible best case scenario outcomes and worst-case scenario comes. Patient verbalizes understanding. Interval History: 01/29/18- patient is being seen examined and evaluated today on rounds. He is resting up in bed on room air. CT is feeling well. Has been ambulating in the hallway. Has been utilizing his incentive spirometer and pulling volumes of approximately 1750 arousals. He denies any cough or congestion at this time. Patient is planned for a CABG tomorrow with cardiothoracic surgery. Preop workup has been completed. He is afebrile no further complaints. All labs and reports have been reviewed. 01/30/2018: Patient seen and examined in the intensive care unit with nursing staff at bedside. The patient has returned from CABG and valve replacement. The patient is on full ventilator support. Ventilator has been adjusted and ABG reviewed. No current issues per nursing staff. 01/31-02/01/[address] АННА Smith notes 02/02/18- patient is being seen examined and evaluated today in the intensive care unit. Patient has been slightly hypotensive and his Primacor has been weaned off off, dopamine has been decreased as well per cardiothoracic services. He continues on insulin drip per protocol. Urine output has been 50- 60 miles per hour. He continues on 4 L of supplemental oxygen via nasal cannula. Does complain of some shortness of breath with exertion and activity. Denies any cough or congestion. He continues to have chest tubes in place to mediastinal and one left pleural itch chest tube did produce 50-70 miles overnight. Patient has been tolerating his clear liquid diet about 75% this morning. He did not need any BiPAP overnight. He continues to have epicardial pacer in VVI mode. He is afebrile no further complaints. 02/03/18- patient is being seen examined and evaluated today on rounds. Patient is resting up in bed on supplemental oxygen. He continues on Lasix drip insulin and dopamine. Patient has noted to have a BUN of 63, his Creatinine is increased to 3.7. Nephrology will be consulted. Chest x-ray was reviewed and does show some progressive pulmonary edema with small right-sided pleural effusion as well as cardiogenic fluid overload. Patient's blood pressure is stable. Per the nursing staff the patient may undergo his chest chest tube removal today. He is hemodynamically stable, no further complaints. Using his incentive spirometer. 02/04/18- patient is being seen examined and evaluated today on rounds. He remains in the intensive care unit. His BUN today is 77 g 3.6, nephrology was consulted yesterday and was subsequently canceled per the admitting team. Chest x-ray was reviewed and does show some improvement and CHF and improvement in the right pleural effusion. Patient was taken off Lasix drip and switched to IV push Lasix. His chest tube was removed yesterday. His dopamine is currently on hold. He is hemodynamically stable. 02/05/2018: Patient seen and examined. Patient has been transferred from the intensive care unit. His BUN today is 83 and creatinine is 3.4. The patient states he is having more pain today. He is currently sitting up in the chair. He states that he has had urinary retention and had to be straight cath this morning. He does have intermittent shortness of breath but states it is improving. 02/06/18-patient is being seen examined and evaluated today on the selective care unit. The patient was downgraded from the ICU yesterday. He is resting up in bed on room air. States he does not have any shortness of breath cough or congestion at this time. His BUN today is 87 g 3.5. He continues to have some urinary retention today and had to be straight cath again. The patient also complains of some constipation and is being put on a bowel regimen. He is afebrile no further complaints. Has been working with PT and OT. 02/07/18- patient is being seen examined and evaluated today on rounds. Patient is resting up in bed and intermittently using oxygen on and off. He still has some shortness of breath with exertion. He was able to have a bowel movement yesterday. He continues to have urinary retention and a Ness catheter had to be placed. Patient's BUN is 93 creatinine is 3.25. He continues with PT and OT patient will require inpatient rehab upon discharge. 02/08/2018: Patient seen and examined. Patient states he is starting to feel very weak and that he is having cramping in his hands. The patient states that he is getting very frustrated and wants to go home. He doesn't understand what is going on and why it's taking so long. He states his breathing has been okay. He did have an episode of hypotension this morning. Cardiothoracic surgery was notified. The patient's urine output has been adequate however his BUN is continually climbing to 100 and his creatinine today is 3.8. 02/09/18- patient is being seen examined and evaluated today on rounds. His breathing has been stable. He is on room air. He does have some shortness of breath with exertion and activity, denies any cough or congestion. Patient's Ness catheter was just discontinued this morning the patient has not urinated as of yet. It is noted today that his BUN continues to climb and is now 108 and his creatinine is now 3.8. Patient complains of achy restless legs. 02/10/18- patient seen seen examined and evaluated today on rounds. He is resting up in bed on room air. His chest x-ray was reviewed and does show some mild bibasilar atelectasis, doubt pneumonia. His sodium today is noted to be 126, BUN 109 creatinine is 4.0. WBCs 14.7. The patient states he feels short of breath and does have a congested cough without any sputum production. He has been using his incentive spirometer and pulling volumes of 1750. Nephrology is on consult and has started the patient on IV fluids. He continues to have urinary retention and needed to have another straight cath and 600 mL of urine was returned. Still complains of restless legs. He continues to work with PT and OT. Patient has discharge planning and process to inpatient rehab facility. Objective - Vital Signs Vital signs: Vital Signs Temp 97 F L 02/10/18 08:00 Pulse 88 02/10/18 08:03 Resp 17 02/10/18 08:00 BP 107/59 02/10/18 08:00 Pulse Ox 93 L 02/10/18 08:00 Intake & Output 02/09/18 02/10/18 02/10/18 18:59 06:59 18:59 Intake Total 240 20 Output Total 275 1300 Balance -35 -1280 Weight 103.6 kg Intake: IV 20 0.9 20 Oral 240 Output: Urine 250 700 Straight 225 600 Post Void Residual 25 600 Other: Voiding Method Indwelling Catheter Urinal Urinal ABP, PAP, CO, CI - Last Documented Arterial Blood Pressure 91/32 Pulmonary Artery Pressure 35/18 Cardiac Output 4.8 Cardiac Index 2.9 - Exam CONSTITUTIONAL: Patient is seen in no acute distress, generalized weakness HEENT: Head is normocephalic, atraumatic. Pupils are equal, conjunctiva clear. Neck is supple, trachea is midline. No JVD. RESPIRATORY: ~Lungs clear to auscultation. No wheezes, rales or rhonchi appreciated. Respirations are even and unlabored. Bases diminished bilaterally CARDIOVASCULAR: ~Heart is irregular rate and rhythm. S1 and S2 are heard. No murmur. GASTROINTESTINAL: ~Abdomen is soft, nontender, nondistended. Bowel sounds are positive. EXTREMITIES: ~No lower extremity edema is noted. Pedal pulses are palpable bilaterally. NEUROLOGICAL: ~Patient is alert and oriented 3. Speech is clear and interactive. No tremor is noted. - Labs CBC & Chem 7: 02/10/18 06:05 02/10/18 06:05 Labs: Abnormal Lab Results - Last 24 Hours (Table) 02/09/18 02/09/18 02/09/18 Range/Units 06:41 11:45 17:01 WBC (3.8-10.6) k/uL RBC (4.30-5.90) m/uL Hgb (13.0-17.5) gm/dL Hct (39.0-53.0) % RDW (11.5-15.5) % Neutrophils # (1.3-7.7) k/uL Lymphocytes # (1.0-4.8) k/uL Monocytes # (0-1.0) k/uL Sodium (137-145) mmol/L Chloride (98-107) mmol/L BUN (9-20) mg/dL Creatinine (0.66-1.25) mg/dL Glucose (74-99) mg/dL POC Glucose (mg/dL) 115 H 154 H (75-99) mg/dL Phosphorus (2.5-4.5) mg/dL Magnesium (1.6-2.3) mg/dL Iron 30 L (65-175) ug/dL Iron Saturation 12.61 L (15.00-50.00) Ferritin 672.8 H (22.0-322.0) ng/mL Total Protein (6.3-8.2) g/dL Albumin (3.5-5.0) g/dL Ur Random Sodium (30-90) mmol/L 02/09/18 02/09/18 02/10/18 Range/Units 20:51 23:00 03:28 WBC (3.8-10.6) k/uL RBC (4.30-5.90) m/uL Hgb (13.0-17.5) gm/dL Hct (39.0-53.0) % RDW (11.5-15.5) % Neutrophils # (1.3-7.7) k/uL Lymphocytes # (1.0-4.8) k/uL Monocytes # (0-1.0) k/uL Sodium (137-145) mmol/L Chloride (98-107) mmol/L BUN (9-20) mg/dL Creatinine (0.66-1.25) mg/dL Glucose (74-99) mg/dL POC Glucose (mg/dL) 123 H 128 H (75-99) mg/dL Phosphorus (2.5-4.5) mg/dL Magnesium (1.6-2.3) mg/dL Iron (65-175) ug/dL Iron Saturation (15.00-50.00) Ferritin (22.0-322.0) ng/mL Total Protein (6.3-8.2) g/dL Albumin (3.5-5.0) g/dL Ur Random Sodium 5 L (30-90) mmol/L 02/10/18 02/10/18 Range/Units 06:05 06:05 WBC 14.7 H (3.8-10.6) k/uL RBC 3.20 L (4.30-5.90) m/uL Hgb 9.1 L (13.0-17.5) gm/dL Hct 28.1 L (39.0-53.0) % RDW 15.8 H (11.5-15.5) % Neutrophils # 12.3 H (1.3-7.7) k/uL Lymphocytes # 0.6 L (1.0-4.8) k/uL Monocytes # 1.2 H (0-1.0) k/uL Sodium 126 L (137-145) mmol/L Chloride 86 L (98-107) mmol/L BUN 109 H* (9-20) mg/dL Creatinine 4.00 H (0.66-1.25) mg/dL Glucose 55 L (74-99) mg/dL POC Glucose (mg/dL) (75-99) mg/dL Phosphorus 6.2 H (2.5-4.5) mg/dL Magnesium 3.5 H (1.6-2.3) mg/dL Iron (65-175) ug/dL Iron Saturation (15.00-50.00) Ferritin (22.0-322.0) ng/mL Total Protein 6.1 L (6.3-8.2) g/dL Albumin 3.4 L (3.5-5.0) g/dL Ur Random Sodium (30-90) mmol/L Microbiology - Last 24 Hours (Table) 02/08/18 22:30 Urine Culture - Preliminary Urine,Catheterized Assessment and Plan Assessment: Assessment: Chest pain Severe mitral regurgitation, s/p MVR ASCAD, s/p CABG 80-90% stenosis of his right coronary artery 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 [place] reviewed from [facility] reviewed, suggestive of restrictive lung disease, however, without lung volumes and full PFT cannot definitively diagnose. Hemodynamics per CVTS Monitor I & O's Outpatient PFT and PSG recommended. Incentive spirometry and pulmonary hygiene. Supplemental oxygen to maintain oxygen saturations greater than 90% if needed. GI and DVT prophylaxis. Patient will also benefit from an outpatient PSG once medically stable and discharged from the hospital. Patient being evaluated for inpatient rehab, discharge planning We will continue to monitor labs/results and adjust treatment as necessary. Consult to nephrology canceled per primary team, patient's BUN and Creatinine continue to increase, would reconsider nephrology consult as the patient is starting to have symptoms of possible uremia and with his hypotension this morning, it is possible the renal function could worsen. The patient is also concerned and states he has never had problems with his kidneys in the past. agree with IVF per nephro Flexeril for Restless legs I performed an examination of the patient and discussed their management with the nurse practitioner. I have reviewed the nurse practitioner's note and agree with the documented findings and plan of care. <Lisbet Marte - Last Filed: 02/10/18 13:28> Objective - Vital Signs Vital signs: Vital Signs Temp 97 F L 02/10/18 08:00 Pulse 85 02/10/18 12:00 Resp 17 02/10/18 12:00 BP 105/70 02/10/18 12:00 Pulse Ox 97 02/10/18 12:00 Intake & Output 02/09/18 02/10/18 02/10/18 18:59 06:59 18:59 Intake Total 240 20 100 Output Total 275 1300 Balance -35 -1280 100 Weight 103.6 kg 103.6 kg Intake: IV 20 0.9 20 Intake, IV Titration 100 Amount Sodium Ferric Gluconat- 100 Sucrose 125 mg In Sodium Chloride 0.9% 100 ml @ 100 mls/hr IVPB DAILY [facility] Rx#:[id number] Oral 240 Output: Urine 250 700 Straight 225 600 Post Void Residual 25 600 Other: Voiding Method Indwelling Catheter Urinal Urinal ABP, PAP, CO, CI - Last Documented Arterial Blood Pressure 91/32 Pulmonary Artery Pressure 35/18 Cardiac Output 4.8 Cardiac Index 2.9 - Labs CBC & Chem 7: 02/10/18 06:05 02/10/18 06:05 Labs: Abnormal Lab Results - Last 24 Hours (Table) 02/09/18 02/09/18 02/09/18 Range/Units 06:41 17:01 20:51 WBC (3.8-10.6) k/uL RBC (4.30-5.90) m/uL Hgb (13.0-17.5) gm/dL Hct (39.0-53.0) % RDW (11.5-15.5) % Neutrophils # (1.3-7.7) k/uL Lymphocytes # (1.0-4.8) k/uL Monocytes # (0-1.0) k/uL Sodium (137-145) mmol/L Chloride (98-107) mmol/L BUN (9-20) mg/dL Creatinine (0.66-1.25) mg/dL Glucose (74-99) mg/dL POC Glucose (mg/dL) 154 H 123 H (75-99) mg/dL Phosphorus (2.5-4.5) mg/dL Magnesium (1.6-2.3) mg/dL Iron 30 L (65-175) ug/dL Iron Saturation 12.61 L (15.00-50.00) Ferritin 672.8 H (22.0-322.0) ng/mL Total Protein (6.3-8.2) g/dL Albumin (3.5-5.0) g/dL Ur Random Sodium (30-90) mmol/L 02/09/18 02/10/18 02/10/18 Range/Units 23:00 03:28 06:05 WBC 14.7 H (3.8-10.6) k/uL RBC 3.20 L (4.30-5.90) m/uL Hgb 9.1 L (13.0-17.5) gm/dL Hct 28.1 L (39.0-53.0) % RDW 15.8 H (11.5-15.5) % Neutrophils # 12.3 H (1.3-7.7) k/uL Lymphocytes # 0.6 L (1.0-4.8) k/uL Monocytes # 1.2 H (0-1.0) k/uL Sodium (137-145) mmol/L Chloride (98-107) mmol/L BUN (9-20) mg/dL Creatinine (0.66-1.25) mg/dL Glucose (74-99) mg/dL POC Glucose (mg/dL) 128 H (75-99) mg/dL Phosphorus (2.5-4.5) mg/dL Magnesium (1.6-2.3) mg/dL Iron (65-175) ug/dL Iron Saturation (15.00-50.00) Ferritin (22.0-322.0) ng/mL Total Protein (6.3-8.2) g/dL Albumin (3.5-5.0) g/dL Ur Random Sodium 5 L (30-90) mmol/L 02/10/18 Range/Units 06:05 WBC (3.8-10.6) k/uL RBC (4.30-5.90) m/uL Hgb (13.0-17.5) gm/dL Hct (39.0-53.0) % RDW (11.5-15.5) % Neutrophils # (1.3-7.7) k/uL Lymphocytes # (1.0-4.8) k/uL Monocytes # (0-1.0) k/uL Sodium 126 L (137-145) mmol/L Chloride 86 L (98-107) mmol/L BUN 109 H* (9-20) mg/dL Creatinine 4.00 H (0.66-1.25) mg/dL Glucose 55 L (74-99) mg/dL POC Glucose (mg/dL) (75-99) mg/dL Phosphorus 6.2 H (2.5-4.5) mg/dL Magnesium 3.5 H (1.6-2.3) mg/dL Iron (65-175) ug/dL Iron Saturation (15.00-50.00) Ferritin (22.0-322.0) ng/mL Total Protein 6.1 L (6.3-8.2) g/dL Albumin 3.4 L (3.5-5.0) g/dL Ur Random Sodium (30-90) mmol/L Microbiology - Last 24 Hours (Table) 02/08/18 22:30 Urine Culture - Final Urine,Catheterized Assessment and Plan Assessment: Patient seen and examined. Patient is sitting up at the bedside, he appears very anxious and states he just wants to get back into bed. He states he doesn' t feel well and wants to lay down. Vitals BP 120/55, O2 sat 95% on 2L NC, BS 99. Nursing placed ness with 100 cc urine output. Patient placed back in bed. He denies chest pain and shortness of breath, lungs are clear. He states "I just don't feel good." IVF at 50 cc/hr. Continue to monitor closely. Case discussed with nephrology and IM teams as well. ~Lisbet Marte, DO
[2018-02-10 11:53] LABS: Glucose,Whole Blood 99 mg/dL (75-99)
--- NOTE | 2018-02-10 13:04 | P.PN ---
Subjective Progress Note Date: 02/10/18 This is a 69 HO pleasant gentleman patient of Dr. Cardoso with underlying history of CAD with prior PCI stent placement, hypertension hypertensive cardiovascular disease hyperlipidemia and diabetes mellitus type 2 asthma OR arthritis COPD admitted to [facility] and was found on imaging studies secondary to his chest pain new onset atrial fibrillation with RVR and shortness of breath, cardiac cath performed 01/26/2018 showing 80% stenosis of RCA, 70% stenoses of the left circumflex involving the AV groove circumflex ostial portion, severe mitral regurgitation, dilated left ventricle ejection fraction 50-55%. He was transferred to [facility] for mitral valve placement and CABG 2 vessel critical stenosis involving left circumflex and right coronary artery. CABG most likely would be anticipated to be done January 30 He was seen at [facility] by , for pulmonary clearance, pertinent laboratories creatinine 1.01 hemoglobin 12.4 TSH 0.93 hemoglobin A1c not done,. Patient currently is on basal bolus Levemir and premeal coverage, instead of home oral medication, continue on Januvia 100 mg at bedtime, cardiology to see, Dr. Marte for consult and consult to Dr. Spicer cardiothoracic, Dr. Salas cardiology. He should maintain IV heparin 01/29: Patient is followed by Dr. Marte and Dr. VC Fry. Patient is scheduled for coronary artery bypass surgery and mitral valve replacement or repair on Friday. Blood sugars are running 156-193. Additional 2units of Novolog added premeal until surgery. Patient states his blood sugars are usually 100-130 at home. 01/30: Patient is going for surgery. 01/31 Patient is postoperative day 1 with mitral valve repair, coronary artery bypass grafting X2. Patient examined bed side. Appears tired. Complains of shortness of breath intermittently. Currently on 2 L of oxygen. Blood pressure continues to drop to systolic in low 80. Initiated on norepinephrine added low -dose. Chest x-ray suggested worsening vascular congestion and pleural effusion. Received 1 dose 80 mg IV Lasix today [place] catheter removed today. Patient is extubated since this morning. 02/01 Patient has increased cough and congestion, on 6 L nasal cannula. CXR concerning for cngestion and pleural effusion. on lasix drip. Lantus increased to 15 units bedtime to decrease insulin requirement. Continue trodjenta 5 mg po daily while in hospital. COntinue insulin drip, plan to switich to sliding scale if not much requirement on drip. Continue metoprolol 25 mg op BID 02/02: Patient has been evaluated by Dr. Diego and may be a candidate for inpatient. Primacor has been discontinued. Patient is currently on dopamine, insulin drip and Lasix drip. Epicardial wires and chest tube out today. Blood sugars are running between 101 and 174. White count has jumped to 19.7 and renal function is worsening with BUN 49 creatinine 3.06. The patient states he did eat his breakfast this morning. 02/03: Renal function continues to worsen with BUN 63 and creatinine 3.70 and phosphorus level continues to rise currently at 6.8. PhosLo will be added. Parathyroid hormone intact will be ordered. Consult with nephrology was added by pulmonary medicine but this was subsequently canceled. Regarding his blood sugars, insulin drip will be discontinued and Levemir will be increased to 20 units at bedtime. Patient is also on dopamine and insulin drips. Lasix drip was discontinued and patient switched to IV Lasix. tle. 02/04: 02/04: Patient is now off dopamine. Insulins will be adjusted to NovoLog 5 units with meals and Levemir 12 units twice daily and insulin drip will be discontinued. Ensure will be started as patient is eating very little. Repeat BUN 77 creatinine 3.60. Parathyroid intact is 114 and patient will need follow- up with nephrology as an outpatient. 02/05: Blood sugars are elevated and his morning 70/30 insulin will be increased to 23 units and evening to 20 units. Scheduled NovoLog will be increased to 8 units with meals. Patient ate about 75% of his dinner last night and 25% of his breakfast. He is taking some Ensure. Patient to be transferred to select care today. 02/06: Patient is now seen on the selective care unit. Repeat chest x-ray shows persistent mild pulmonary vascular congestion and trace right pleural effusion. Left pleural effusion has resolved. No pneumothorax. Blood sugars are improved on current regime running between 111 and 145. BUN is 87 and creatinine 3.5. Hemoglobin is 9.6. Patient is working with PT and OT and is easily fatigued. At this point still anticipating discharge to [facility] for inpatient rehab once patient is cleared by cardiothoracic surgery. 02/09: Patient's kidney function slightly red worse we'll consult nephrology, he is more medically stable and will need probably to go to rehab from here for a period of time is still debilitated. Had more hematoma and bruise on the right leg area side of his graft for his bypass. His mobility still significantly decreased currently. We will continue PTOT and plan possibly if his stable otherwise including kidney function and cardiovascular might be discharged in the next 2 days to rehab at [facility]. 02/10: Renal function has continued to worsen with a creatinine of 4. He has been started on normal saline at 50 mL/h and diuretics are on hold. Narvaez catheter to be reinserted, 1.2 L fluid restriction and patient have repeat labs done this afternoon. Patient has been started on Ferrlecit IV 3 days. Renal ultrasound ordered. Patient is anticipating inpatient rehab. Objective - Vital Signs Vital signs: Vital Signs Temp 97 F L 02/10/18 08:00 Pulse 88 02/10/18 08:03 Resp 17 02/10/18 08:00 BP 107/59 02/10/18 08:00 Pulse Ox 93 L 02/10/18 08:00 Intake & Output 02/09/18 02/10/18 02/10/18 18:59 06:59 18:59 Intake Total 240 20 Output Total 275 1300 Balance -35 -1280 Weight 103.6 kg Intake: IV 20 0.9 20 Oral 240 Output: Urine 250 700 Straight 225 600 Post Void Residual 25 600 Other: Voiding Method Indwelling Catheter Urinal Urinal ABP, PAP, CO, CI - Last Documented Arterial Blood Pressure 91/32 Pulmonary Artery Pressure 35/18 Cardiac Output 4.8 Cardiac Index 2.9 - Exam General appearance: Present: cooperative, disheveled, no acute distress, obese. Absent: average body habitus, mild distress, morbidly obese, severe distress, thin - EENT Eyes: Present: normal appearance. Absent: abnormal pupil, anicteric sclerae, disc margins sharp, edentulous, EOMI, PERRLA, fundus normal, photophobia, dentition normal, poor dentition, ptosis, scleral icterus ENT: Present: hard of hearing, pharyngeal erythema. Absent: hearing grossly normal, NA/AT, normal oropharynx, other, thrush, tonsillar exudates, tonsillar swelling Ears: bilateral: normal - Neck Neck: Present: normal ROM. Absent: lymphadenopathy, other, rigidity, stridor, thyromegaly Carotids: bilateral: upstroke normal Thyroid: bilateral: normal size - Respiratory Respiratory: left: dullness, rales, bilateral: diminished, wheezing, prolonged expiration - Cardiovascular Rhythm: regular Heart sounds: normal: S1, S2 Abnormal Heart Sounds: Present: systolic murmur, S3 Gallop - Gastrointestinal General gastrointestinal: Present: distended, normal bowel sounds, soft. Absent : absent bowel sounds, decreased bowel sounds, hepatomegaly, hyperactive bowel sounds, organomegaly, rigid, scaphoid, splenomegaly, tenderness, umbilical hernia, ventral hernia - Integumentary Integumentary: Present: cellulitis, normal, pale, rash. Absent: calor, cyanotic , decreased turgor, flushed, jaundiced, normal turgor, ulcer - Neurologic Neurologic: Present: CNII-XII intact - Musculoskeletal Musculoskeletal: Present: gait normal, generalized weakness, strength equal bilaterally. Absent: right sided weakness, left sided weakness - Psychiatric Psychiatric: Present: A&O x's 3, appropriate affect. Absent: intact judgment & insight - Labs CBC & Chem 7: 02/10/18 06:05 02/10/18 06:05 Labs: Abnormal Lab Results - Last 24 Hours (Table) 02/09/18 02/09/18 02/09/18 Range/Units 06:41 11:45 17:01 WBC (3.8-10.6) k/uL RBC (4.30-5.90) m/uL Hgb (13.0-17.5) gm/dL Hct (39.0-53.0) % RDW (11.5-15.5) % Neutrophils # (1.3-7.7) k/uL Lymphocytes # (1.0-4.8) k/uL Monocytes # (0-1.0) k/uL Sodium (137-145) mmol/L Chloride (98-107) mmol/L BUN (9-20) mg/dL Creatinine (0.66-1.25) mg/dL Glucose (74-99) mg/dL POC Glucose (mg/dL) 115 H 154 H (75-99) mg/dL Phosphorus (2.5-4.5) mg/dL Magnesium (1.6-2.3) mg/dL Iron 30 L (65-175) ug/dL Iron Saturation 12.61 L (15.00-50.00) Ferritin 672.8 H (22.0-322.0) ng/mL Total Protein (6.3-8.2) g/dL Albumin (3.5-5.0) g/dL Ur Random Sodium (30-90) mmol/L 02/09/18 02/09/18 02/10/18 Range/Units 20:51 23:00 03:28 WBC (3.8-10.6) k/uL RBC (4.30-5.90) m/uL Hgb (13.0-17.5) gm/dL Hct (39.0-53.0) % RDW (11.5-15.5) % Neutrophils # (1.3-7.7) k/uL Lymphocytes # (1.0-4.8) k/uL Monocytes # (0-1.0) k/uL Sodium (137-145) mmol/L Chloride (98-107) mmol/L BUN (9-20) mg/dL Creatinine (0.66-1.25) mg/dL Glucose (74-99) mg/dL POC Glucose (mg/dL) 123 H 128 H (75-99) mg/dL Phosphorus (2.5-4.5) mg/dL Magnesium (1.6-2.3) mg/dL Iron (65-175) ug/dL Iron Saturation (15.00-50.00) Ferritin (22.0-322.0) ng/mL Total Protein (6.3-8.2) g/dL Albumin (3.5-5.0) g/dL Ur Random Sodium 5 L (30-90) mmol/L 02/10/18 02/10/18 Range/Units 06:05 06:05 WBC 14.7 H (3.8-10.6) k/uL RBC 3.20 L (4.30-5.90) m/uL Hgb 9.1 L (13.0-17.5) gm/dL Hct 28.1 L (39.0-53.0) % RDW 15.8 H (11.5-15.5) % Neutrophils # 12.3 H (1.3-7.7) k/uL Lymphocytes # 0.6 L (1.0-4.8) k/uL Monocytes # 1.2 H (0-1.0) k/uL Sodium 126 L (137-145) mmol/L Chloride 86 L (98-107) mmol/L BUN 109 H* (9-20) mg/dL Creatinine 4.00 H (0.66-1.25) mg/dL Glucose 55 L (74-99) mg/dL POC Glucose (mg/dL) (75-99) mg/dL Phosphorus 6.2 H (2.5-4.5) mg/dL Magnesium 3.5 H (1.6-2.3) mg/dL Iron (65-175) ug/dL Iron Saturation (15.00-50.00) Ferritin (22.0-322.0) ng/mL Total Protein 6.1 L (6.3-8.2) g/dL Albumin 3.4 L (3.5-5.0) g/dL Ur Random Sodium (30-90) mmol/L Microbiology - Last 24 Hours (Table) 02/08/18 22:30 Urine Culture - Preliminary Urine,Catheterized Assessment and Plan Plan: 1. Severe mitral regurgitation and CAD with 2 vessel critical stenosis s/p CABG , and mitral valve repair, Dr. Spicer from cardiovascular surgery. Cardiology is following. Dr. Vides is covering for intensive care management. extubated. Continue eliquis, aspirin 81 mg daily, Lipitor 40 mg daily. Continue amiodarone 200 mg twice daily 2. Diabetes mellitus type 2. Continue Levemir 23 units in the morning, 20 units in the evening, NovoLog 8 units with meals and scale. 3. New onset atrial fibrillation, paroxysmal, currently on oral amiodarone and metoprolol tartrate 12.5 mg twice daily 4. Acute kidney injury with CKD stage II with baseline creatinine 1.01, continue to monitor. Nephrology consult is appreciated. Patient has been started on normal saline at 50 mL per hour, diuretics on hold, avoid nephrotoxic agents and hypotensive episodes. Narvaez catheter to be replaced. 1.2 L fluid restriction. Repeat labs this evening. 5. Hyperphosphatemia secondary to acute kidney injury. PhosLo added. Parathyroid hormone intact is elevated. 6. CAD with previous PCI and stent placement with recent cardiac cath [address] Reynolds found to have 60-70% stenosis involving left circumflex AV groove circumflex ostial portion, and RCA 80% stenosis mid RCA, EF 50-55% left ventricle end-diastolic pressure 14 severe mitral regurgitation. 7. BPH without urinary tract symptomatology. Continue Flomax or 0.8 mg at bedtime daily. Monitor for urinary retention. 8. Mild intermittent asthma without any current exacerbation with COPD and when necessary nebulizer, incentive spirometry, 9. Hypertensive cardiovascular disease. Patient on Lopressor. 10. History of skin cancer 11. Osteoarthritis, generalized. 12. Hyperlipidemia on Lipitor 40 mg daily 13. Anemia secondary to renal failure. Patient started on Ferrlecit 3 days GI prophylaxis. Protonix DVT prophylaxis Discharge plan: Inpatient rehab Impression and plan of care have been directed as dictated by the signing physician. Zoya Lenz nurse practitioner acting as scribe for signing physician.
--- NOTE | 2018-02-10 13:15 | US ---
EXAMINATION TYPE: US kidneys/renal and bladder DATE OF EXAM: 02/10/2018 COMPARISON: NONE CLINICAL HISTORY: harley. EXAM MEASUREMENTS: Right Kidney: 12.7 x 6.4 x 6.0cm Left Kidney: 12.9 x 6.8 x 6.2 cm This exam was limited and technically difficult by poor patient cooperation, inability to move to hel p examiner or hold his breath. Right Kidney: measures large, inferior pole obscured by bowel gas, there is a possible cyst measuring 2.8 x 2.4 x 2.5cm Left Kidney: measures large, irregular shaped cyst, lower pole measuring 2.0 x 2.0 x 1.7cm . This do es not have good through transmission cannot be classified as a simple cyst. Follow-up is recommended . Bladder: not fully distended appears wnl as visualized. IMPRESSION: 1. 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 Follow-up is recommended.
--- NOTE | 2018-02-10 15:19 | P.PN ---
Subjective Progress Note Date: 02/10/18 This is 77-year-old gentleman transferred here from [facility], patient has two-vessel coronary artery disease and severe mitral regurg. He is scheduled to undergo surgery tomorrow. Patient was seen and examined this morning, doing well, denies any chest pain in his breathing has been stable. Blood pressure 115/70 with a heart rate in the 90s, 95% on room air. 02/09/2018 Patient was seen and examined this morning, status post mitral valve repair and coronary artery bypass grafting surgery 2. Patient has ambulated in the room to the doorway this morning, complaining of restless legs this morning. Breathing overall is stable. Blood pressure 100/60 with a heart rate in the 80s , 95% on room air. White blood cell count 12.2, hemoglobin 9.3, platelet count 308. Sodium 128, potassium 4.4, BUN 108, creatinine 3.8. 02/10/2018 seen and examined this morning, mildly agitated, renal function continues to worsen with a creatinine today of 4. He is receiving normal saline at 50 mL per hour. Ambulating in his room only. Blood pressure 96/50, heart rate in the 80s. Objective - Vital Signs Vital signs: Vital Signs Temp 97.4 F L 02/10/18 14:59 Pulse 88 02/10/18 15:08 Resp 17 02/10/18 14:59 BP 96/54 02/10/18 14:59 Pulse Ox 100 02/10/18 14:59 Intake & Output 02/09/18 02/10/18 02/10/18 18:59 06:59 18:59 Intake Total 240 20 100 Output Total 275 1300 Balance -35 -1280 100 Weight 103.6 kg 103.6 kg Intake: IV 20 0.9 20 Intake, IV Titration 100 Amount Sodium Ferric Gluconat- 100 Sucrose 125 mg In Sodium Chloride 0.9% 100 ml @ 100 mls/hr IVPB DAILY [facility] Rx#:[id number] Oral 240 Output: Urine 250 700 Straight 225 600 Post Void Residual 25 600 Other: Voiding Method Indwelling Catheter Urinal Indwelling Catheter ABP, PAP, CO, CI - Last Documented Arterial Blood Pressure 91/32 Pulmonary Artery Pressure 35/18 Cardiac Output 4.8 Cardiac Index 2.9 - Exam PHYSICAL EXAMINATION: HEENT: Head is atraumatic, normocephalic. Pupils equal, round. Neck is supple. There is no elevated jugular venous pressure. HEART EXAMINATION: Heart S1 S2 irregularly irregular . CHEST EXAMINATION: Lungs are clear with diminished air entry to bilateral bases. Sternum is stable. Heart had are in place. ABDOMEN: Soft, nontender. Bowel sounds are heard. No organomegaly noted. EXTREMITIES: 2+ peripheral pulses with no evidence of peripheral edema and no calf tenderness noted. Antiembolism stockings and SCDs in place. NEUROLOGIC patient is awake, alert and oriented -3. . - Labs CBC & Chem 7: 02/10/18 06:05 02/10/18 06:05 Labs: Abnormal Lab Results - Last 24 Hours (Table) 02/09/18 02/09/18 02/09/18 Range/Units 06:41 17:01 20:51 WBC (3.8-10.6) k/uL RBC (4.30-5.90) m/uL Hgb (13.0-17.5) gm/dL Hct (39.0-53.0) % RDW (11.5-15.5) % Neutrophils # (1.3-7.7) k/uL Lymphocytes # (1.0-4.8) k/uL Monocytes # (0-1.0) k/uL Sodium (137-145) mmol/L Chloride (98-107) mmol/L BUN (9-20) mg/dL Creatinine (0.66-1.25) mg/dL Glucose (74-99) mg/dL POC Glucose (mg/dL) 154 H 123 H (75-99) mg/dL Phosphorus (2.5-4.5) mg/dL Magnesium (1.6-2.3) mg/dL Iron 30 L (65-175) ug/dL Iron Saturation 12.61 L (15.00-50.00) Ferritin 672.8 H (22.0-322.0) ng/mL Total Protein (6.3-8.2) g/dL Albumin (3.5-5.0) g/dL Ur Random Sodium (30-90) mmol/L 02/09/18 02/10/18 02/10/18 Range/Units 23:00 03:28 06:05 WBC 14.7 H (3.8-10.6) k/uL RBC 3.20 L (4.30-5.90) m/uL Hgb 9.1 L (13.0-17.5) gm/dL Hct 28.1 L (39.0-53.0) % RDW 15.8 H (11.5-15.5) % Neutrophils # 12.3 H (1.3-7.7) k/uL Lymphocytes # 0.6 L (1.0-4.8) k/uL Monocytes # 1.2 H (0-1.0) k/uL Sodium (137-145) mmol/L Chloride (98-107) mmol/L BUN (9-20) mg/dL Creatinine (0.66-1.25) mg/dL Glucose (74-99) mg/dL POC Glucose (mg/dL) 128 H (75-99) mg/dL Phosphorus (2.5-4.5) mg/dL Magnesium (1.6-2.3) mg/dL Iron (65-175) ug/dL Iron Saturation (15.00-50.00) Ferritin (22.0-322.0) ng/mL Total Protein (6.3-8.2) g/dL Albumin (3.5-5.0) g/dL Ur Random Sodium 5 L (30-90) mmol/L 02/10/18 Range/Units 06:05 WBC (3.8-10.6) k/uL RBC (4.30-5.90) m/uL Hgb (13.0-17.5) gm/dL Hct (39.0-53.0) % RDW (11.5-15.5) % Neutrophils # (1.3-7.7) k/uL Lymphocytes # (1.0-4.8) k/uL Monocytes # (0-1.0) k/uL Sodium 126 L (137-145) mmol/L Chloride 86 L (98-107) mmol/L BUN 109 H* (9-20) mg/dL Creatinine 4.00 H (0.66-1.25) mg/dL Glucose 55 L (74-99) mg/dL POC Glucose (mg/dL) (75-99) mg/dL Phosphorus 6.2 H (2.5-4.5) mg/dL Magnesium 3.5 H (1.6-2.3) mg/dL Iron (65-175) ug/dL Iron Saturation (15.00-50.00) Ferritin (22.0-322.0) ng/mL Total Protein 6.1 L (6.3-8.2) g/dL Albumin 3.4 L (3.5-5.0) g/dL Ur Random Sodium (30-90) mmol/L Microbiology - Last 24 Hours (Table) 02/08/18 22:30 Urine Culture - Final Urine,Catheterized Assessment and Plan Plan: Assessment and plan #1 coronary artery disease and severe mitral regurgitation, status post mitral valve repair and coronary artery bypass grafting surgery times 2. #2 hyperlipidemia #3 diabetes #4 hypertension Plan We will continue the current medications the patient is on, patient is been encouraged to continue ambulating in his room and continue the use of incentive spirometry. Arrangements are being made for rehab. DNP note has been reviewed, I agree with a documented findings and plan of care. Patient was seen and examined.
[2018-02-10 17:21] LABS: Glucose,Whole Blood 75 mg/dL (75-99)
[2018-02-10 18:51] LABS: Calcium 8.2 mg/dL (8.4-10.2)
[2018-02-10] MEDS ORDERED: FUROSEMIDE 10 MG/ML 10 ML VIAL IV STA (20:11)
[2018-02-10] MEDS: SENNOSIDES-DOCUSATE SODIUM 1 EACH TAB PO SCH (20:15)
[2018-02-10] MEDS: TAMSULOSIN 0.4 MG CAP.ER.24H PO SCH (20:15)
[2018-02-10] MEDS: LINAGLIPTIN 5 MG TABLET PO SCH (20:15)
[2018-02-10] MEDS: SODIUM CHLORIDE 0.9% 1,000 ML IV SCH (20:16)
[2018-02-10 20:49] LABS: Glucose,Whole Blood 178 mg/dL (75-99)
[2018-02-11 02:44] LABS: Glucose,Whole Blood 194 mg/dL (75-99)
[2018-02-11 06:24] LABS: Glucose,Whole Blood 164 mg/dL (75-99)
[2018-02-11] MEDS: METOCLOPRAMIDE 5 MG TAB PO SCH (06:25)
[2018-02-11] MEDS: CALCIUM ACETATE 667 MG CAP PO SCH ×3 (06:26→17:11)
[2018-02-11] MEDS: PANTOPRAZOLE 40 MG TABLET PO SCH (06:26)
[2018-02-11] MEDS: INSULIN ASPART 100 UNIT/ML 1 ML 10 ML VIAL SQ SCH ×7 (06:56→20:54)
[2018-02-11 07:16] LABS: Anisocytosis Slight; Basophils # (A) 0.1 k/uL (0-0.2); Basophils % (A) 0 %; Eosinophils # (A) 0.3 k/uL (0-0.7); Eosinophils % (A) 2 %; HGB 9.1 gm/dL (13.0-17.5); Hypochromasia Slight; Lymphocytes # (A) 0.5 k/uL (1.0-4.8); Lymphocytes % (A) 3 %; MCH 27.9 pg (25.0-35.0); MCHC 31.5 g/dL (31.0-37.0); MCV 88.7 fL (80.0-100.0); Mean Platelet Volume 7.3; Monocytes # (A) 0.9 k/uL (0-1.0); Monocytes % (A) 5 %; Neutrophils # (A) 14.2 k/uL (1.3-7.7); Neutrophils % (A) 88 %; Platelet Count 349 k/uL (150-450); RBC 3.27 m/uL (4.30-5.90); WBC 16.1 k/uL (3.8-10.6)
[2018-02-11] MEDS: IPRATROPIUM-ALBUTEROL 3 ML NEB INHALATION SCH ×4 (07:18→19:59)
--- NOTE | 2018-02-11 07:45 | XR ---
EXAMINATION TYPE: XR chest 2V DATE OF EXAM: 02/11/2018 COMPARISON: 02/10/2018 HISTORY: Shortness of breath TECHNIQUE: Frontal and lateral views of the chest are obtained. FINDINGS: Scattered senescent parenchymal changes noted. No evidence for infiltrate. No evidence for atelectasis. Mild pulmonary venous congestion with small effusions. Heart size is stable. Postsurgical changes of median sternotomy. Mediastinal structures are stable and grossly unremarkable. No evidence for hilar prominence. Degenerative changes dorsal spine. IMPRESSION: 1. Mild pulmonary venous congestion with small effusions.
[2018-02-11 07:50] LABS: Albumin 3.5 g/dL (3.5-5.0); Calcium 8.2 mg/dL (8.4-10.2); Phosphorus 6.6 mg/dL (2.5-4.5); Potassium 4.7 mmol/L (3.5-5.1); Total Bilirubin 1.3 mg/dL (0.2-1.3)
[2018-02-11] MEDS: SODIUM FERRIC GLUCONAT-SUCROSE 125 MG in SODIUM CHLORIDE 0.9% 100 ML IVPB SCH (08:39)
[2018-02-11] MEDS: guaiFENesin 600 MG TABLET.ER PO SCH ×2 (08:47→20:54)
[2018-02-11] MEDS: AMIODARONE 200 MG TAB PO SCH ×2 (08:47→20:54)
[2018-02-11] MEDS: INSULIN DETEMIR 100 UNIT/ML 10 ML VIAL SQ SCH ×2 (08:47→20:54)
[2018-02-11] MEDS: APIXABAN 2.5 MG TABLET PO SCH ×3 (08:47→16:18)
[2018-02-11] MEDS: CEFUROXIME 250 MG TAB PO SCH (08:47)
[2018-02-11] MEDS: METOPROLOL TARTRATE 12.5 MG TAB PO SCH ×2 (08:47→20:54)
[2018-02-11] MEDS: ATORVASTATIN 40 MG TAB PO SCH (08:47)
[2018-02-11] MEDS: ASPIRIN 81 MG PO SCH (08:47)
[2018-02-11] MEDS ORDERED: LACTULOSE 20 GM/30 ML CUP PO ONE (09:00)
--- NOTE | 2018-02-11 09:13 | P.PN ---
Subjective Patient is seen in follow-up for acute kidney injury. His baseline creatinine is 1 and is elevated at 4.21 today. BUN is up to 115. Patient was receiving IV diuresis which was discontinued on February 08. Oral intake is just fair. Narvaez catheter was discontinued yesterday but he did require straight catheterization for retention and 600 mL of urine was obtained - Narvaez was reinserted February 10. Denies chest pain or shortness of breath. He is status post CABG 2 and mitral valve repair done 01/30/2018. He was started on IV fluids yesterday with minimal urine output. Denies nausea or vomiting. Vital signs are stable. General: The patient appeared well nourished and normally developed. HEENT: Head exam is unremarkable. Neck is without jugular venous distension. LUNGS: Lungs are clear to auscultation and percussion. Breath sounds decreased. HEART: Rate and Rhythm are regular. First and second heart sounds normal. No murmurs, rubs or gallops. ABDOMEN: Abdominal exam reveals normal bowel sounds. Non-tender and non- distended. No evidence of peritonitis. EXTREMITITES: No clubbing, cyanosis, or edema. Objective - Vital Signs Vital signs: Vital Signs Temp 97.4 F L 02/11/18 04:00 Pulse 72 02/11/18 07:40 Resp 18 02/11/18 04:00 BP 130/57 02/11/18 04:00 Pulse Ox 98 02/11/18 04:00 Intake & Output 02/10/18 02/11/18 02/11/18 18:59 06:59 18:59 Intake Total 100 930 Output Total 600 275 Balance 100 330 -275 Weight 103.6 kg 109 kg Intake: Intake, IV Titration 100 880 Amount Sodium Chloride 0.9% 1, 400 000 ml @ 50 mls/hr IV . Q20H [facility] Rx#:[id number] Sodium Chloride 0.9% 1, 480 000 ml @ 60 mls/hr IV . [id number] [facility] Rx#:[id number] Sodium Ferric Gluconat- 100 Sucrose 125 mg In Sodium Chloride 0.9% 100 ml @ 100 mls/hr IVPB DAILY [facility] Rx#:[id number] Oral 50 Output: Urine 600 275 Straight 275 Other: Voiding Method Indwelling Catheter Indwelling Catheter ABP, PAP, CO, CI - Last Documented Arterial Blood Pressure 91/32 Pulmonary Artery Pressure 35/18 Cardiac Output 4.8 Cardiac Index 2.9 - Labs CBC & Chem 7: 02/11/18 06:50 02/11/18 06:50 Labs: Abnormal Lab Results - Last 24 Hours (Table) 02/10/18 02/10/18 02/11/18 Range/Units 18:13 20:47 02:42 WBC (3.8-10.6) k/uL RBC (4.30-5.90) m/uL Hgb (13.0-17.5) gm/dL Hct (39.0-53.0) % RDW (11.5-15.5) % Neutrophils # (1.3-7.7) k/uL Lymphocytes # (1.0-4.8) k/uL Sodium 125 L (137-145) mmol/L Chloride 86 L (98-107) mmol/L BUN 112 H* (9-20) mg/dL Creatinine 4.09 H (0.66-1.25) mg/dL Glucose (74-99) mg/dL POC Glucose (mg/dL) 178 H 194 H (75-99) mg/dL Calcium 8.2 L (8.4-10.2) mg/dL Phosphorus (2.5-4.5) mg/dL Total Protein (6.3-8.2) g/dL 02/11/18 02/11/18 02/11/18 Range/Units 06:23 06:50 06:50 WBC 16.1 H (3.8-10.6) k/uL RBC 3.27 L (4.30-5.90) m/uL Hgb 9.1 L (13.0-17.5) gm/dL Hct 29.0 L (39.0-53.0) % RDW 16.0 H (11.5-15.5) % Neutrophils # 14.2 H (1.3-7.7) k/uL Lymphocytes # 0.5 L (1.0-4.8) k/uL Sodium 126 L (137-145) mmol/L Chloride 87 L (98-107) mmol/L BUN 115 H* (9-20) mg/dL Creatinine 4.21 H (0.66-1.25) mg/dL Glucose 148 H (74-99) mg/dL POC Glucose (mg/dL) 164 H (75-99) mg/dL Calcium 8.2 L (8.4-10.2) mg/dL Phosphorus 6.6 H (2.5-4.5) mg/dL Total Protein 6.0 L (6.3-8.2) g/dL Microbiology - Last 24 Hours (Table) 02/08/18 22:30 Urine Culture - Final Urine,Catheterized Assessment and Plan Plan: Assessment: 1. Nonoliguric acute kidney injury secondary to ATN secondary to hypotension and diuretics. Creatinine 4.21 today. BUN up to 115. Initial urinalysis was completely benign. No evidence of hydronephrosis noted on renal ultrasound. Baseline creatinine is near 1. 2. Hyponatremia secondary to acute kidney injury. 3. Coronary artery disease status post CABG 2 on 01/30/2018. 4. Severe mitral regurgitation status post mitral valve repair on 01/30/2018. 5. Anemia. Iron deficiency noted. 6. Insulin-dependent diabetes mellitus. 7. Hyperphosphatemia maintained on PhosLo. 8. Atrial fibrillation. Rate controlled. Maintained on amiodarone and beta lencho. 9. Urinary retention. Narvaez catheter reinserted on February 10 due to urinary retention. Plan: Maintain normal saline at 50 mL an hour. Hold off on Lasix today. Avoid nephrotoxic agents and hypotensive episodes - blood pressures have improved. Strict I's and O's. Encouraged oral intake. 1.2 L fluid restriction. Maintain protein supplementation with meals. Ferrlecit 125 mg IV daily for 3 days. Second dose today. Discussed with the patient and need for renal replacement therapy due to worsening renal function and low urine output. Patient is in agreement to proceed. Consult vascular surgery for temporary dialysis catheter placement and plan for first treatment of hemodialysis today.
--- NOTE | 2018-02-11 09:37 | P.PN ---
Subjective Progress Note Date: 02/11/18 Principal diagnosis: Severe mitral regurgitation. 2 vessel coronary artery disease. New onset preoperative paroxysmal atrial fibrillation. 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 POD #12 urgent mitral valve repair with a #30 mm Carbo[employer] annular flex band. Clip ligation of the left atrial appendage with a #35 mm AtriClip. Coronary bypass grafting 2 with reverse saphenous vein graft off the aorta to the circumflex artery and the right coronary artery. Endoscopic harvesting of the right greater saphenous vein. Complete left-sided maze procedure using radiofrequency ablation as well as cryoablation. Intraoperative transesophageal echocardiogram. Postoperative hypotension and low urine output requiring combination of IV pressors, lasix, and inotropic support secondary to low cardiac output, intravascular hypovolemia, an unexpected but potential outcome of surgery. Postoperative nonoliguric acute kidney injury secondary to ATN, an unexpected but potential outcome of surgery secondary to hemodynamic instability. Postoperative urinary retention, an unexpected but potential outcome with the patient having a previous history of urinary retention after surgery. The patient is currently sitting up in bed in no acute distress. Complains of chest soreness with deep breathing and coughing. States shortness of breath is better. Denies nausea this morning. Patient is refusing to ambulate in the hallway, will only ambulate in the room. Kidney function is getting worse, was started on IV fluids yesterday, with 1 dose of IV Lasix last night per Dr. Blankenhsip. Patient did require reinsertion of Ness again secondary to retention. Objective - Vital Signs Vital signs: Vital Signs Temp 97.4 F L 02/11/18 04:00 Pulse 68 02/11/18 07:19 Resp 18 02/11/18 04:00 BP 130/57 02/11/18 04:00 Pulse Ox 98 02/11/18 04:00 Intake & Output 02/10/18 02/11/18 02/11/18 18:59 06:59 18:59 Intake Total 100 930 Output Total 600 Balance 100 330 Weight 103.6 kg 109 kg Intake: Intake, IV Titration 100 880 Amount Sodium Chloride 0.9% 1, 400 000 ml @ 50 mls/hr IV . Q20H [facility] Rx#:[id number] Sodium Chloride 0.9% 1, 480 000 ml @ 60 mls/hr IV . [id number] [facility] Rx#:[id number] Sodium Ferric Gluconat- 100 Sucrose 125 mg In Sodium Chloride 0.9% 100 ml @ 100 mls/hr IVPB DAILY [facility] Rx#:[id number] Oral 50 Output: Urine 600 Other: Voiding Method Indwelling Catheter Indwelling Catheter ABP, PAP, CO, CI - Last Documented Arterial Blood Pressure 91/32 Pulmonary Artery Pressure 35/18 Cardiac Output 4.8 Cardiac Index 2.9 - Constitutional General appearance: Present: cooperative, no acute distress, obese - Respiratory Details: Lungs sounds diminished bilaterally. Respirations even, nonlabored. Currently on room air with oxygen saturation 98%. Able to achieve 1250 mL on his incentive spirometry this morning. Nonproductive cough. - Cardiovascular Details: S1, S2 present. Irregular rate and rhythm, controlled atrial fibrillation on telemetry. Sternum stable. Palpable peripheral pulses bilaterally. No edema present. No calf pain or tenderness noted. Antiembolism stockings, SCDs present. Heart hugger in place with patient demonstrating appropriate use. - Gastrointestinal Gastrointestinal Comment(s): bdomen soft, round, nontender, nondistended. Active bowel sounds present 4 quadrants. Tolerating diet. Positive flatus, no bowel movement for the last several days. - Genitourinary Genitourinary Comment(s): Ness present draining clear, yellow urine. Output 600 mL overnight. - Integumentary Integumentary Comment(s): Skin is warm and dry with evidence of good perfusion. Anterior chest incision well approximated and covered with dry intact dressing. Right lower extremity EVH site well approximated, area of firmness present in the right inner thigh, common from tunnel created when harvesting vein. - Neurologic Neurologic: Present: CNII-XII intact - Musculoskeletal Musculoskeletal: Present: generalized weakness, strength equal bilaterally - Psychiatric Psychiatric: Present: A&O x's 3, appropriate affect, intact judgment & insight - Allied health notes Allied health notes reviewed: nursing - Labs CBC & Chem 7: 02/11/18 06:50 02/11/18 06:50 Labs: Abnormal Lab Results - Last 24 Hours (Table) 02/10/18 02/10/1818 Range/Units 18:13 20:47 02:42 WBC (3.8-10.6) k/uL RBC (4.30-5.90) m/uL Hgb (13.0-17.5) gm/dL Hct (39.0-53.0) % RDW (11.5-15.5) % Neutrophils # (1.3-7.7) k/uL Lymphocytes # (1.0-4.8) k/uL Sodium 125 L (137-145) mmol/L Chloride 86 L (98-107) mmol/L BUN 112 H* (9-20) mg/dL Creatinine 4.09 H (0.66-1.25) mg/dL POC Glucose (mg/dL) 178 H 194 H (75-99) mg/dL Calcium 8.2 L (8.4-10.2) mg/dL 02/11/18 02/11/18 Range/Units 06:23 06:50 WBC 16.1 H (3.8-10.6) k/uL RBC 3.27 L (4.30-5.90) m/uL Hgb 9.1 L (13.0-17.5) gm/dL Hct 29.0 L (39.0-53.0) % RDW 16.0 H (11.5-15.5) % Neutrophils # 14.2 H (1.3-7.7) k/uL Lymphocytes # 0.5 L (1.0-4.8) k/uL Sodium (137-145) mmol/L Chloride (98-107) mmol/L BUN (9-20) mg/dL Creatinine (0.66-1.25) mg/dL POC Glucose (mg/dL) 164 H (75-99) mg/dL Calcium (8.4-10.2) mg/dL Microbiology - Last 24 Hours (Table) 02/08/18 22:30 Urine Culture - Final Urine,Catheterized - Imaging and Cardiology Chest x-ray: report reviewed, image reviewed Assessment and Plan (1) Paroxysmal atrial fibrillation Current Visit: Yes Status: Acute Code(s): I48.0 - PAROXYSMAL ATRIAL FIBRILLATION SNOMED Code(s): 658288136 (2) Acute kidney injury Current Visit: Yes Status: Acute Code(s): N17.9 - ACUTE KIDNEY FAILURE, UNSPECIFIED SNOMED Code(s): 09165547 (3) History of skin cancer Current Visit: No Status: Resolved Code(s): Z85.828 - PERSONAL HISTORY OF OTHER MALIGNANT NEOPLASM OF SKIN SNOMED Code(s): 898353107 (4) Asthma Current Visit: Yes Status: Acute Code(s): J45.909 - UNSPECIFIED ASTHMA, UNCOMPLICATED SNOMED Code(s): 082126362 (5) COPD (chronic obstructive pulmonary disease) Current Visit: Yes Status: Chronic Code(s): J44.9 - CHRONIC OBSTRUCTIVE PULMONARY DISEASE, UNSPECIFIED SNOMED Code(s): 07226680 (6) Diabetes mellitus type 2 in obese Current Visit: Yes Status: Chronic Code(s): E11.69 - TYPE 2 DIABETES MELLITUS WITH OTHER SPECIFIED COMPLICATION; E66.9 - OBESITY, UNSPECIFIED SNOMED Code(s): 09865221 (7) Enlarged prostate Current Visit: Yes Status: Chronic Code(s): N40.0 - BENIGN PROSTATIC HYPERPLASIA WITHOUT LOWER URINRY TRACT SYMP SNOMED Code(s): 201126553 (8) Hyperlipidemia Current Visit: Yes Status: Chronic Code(s): E78.5 - HYPERLIPIDEMIA, UNSPECIFIED SNOMED Code(s): 44478949 (9) Hypertension Current Visit: Yes Status: Chronic Code(s): I10 - ESSENTIAL (PRIMARY) HYPERTENSION SNOMED Code(s): 99390683 (10) Personal history of nicotine dependence Current Visit: No Status: Resolved Code(s): Z87.891 - PERSONAL HISTORY OF NICOTINE DEPENDENCE SNOMED Code(s): 46936099 (11) Presence of stent in coronary artery in patient with coronary artery disease Current Visit: Yes Status: Chronic Code(s): I25.10 - ATHSCL HEART DISEASE OF [place] CORONARY ARTERY W/O ANG PCTRS; Z95.5 - PRESENCE OF CORONARY ANGIOPLASTY IMPLANT AND GRAFT SNOMED Code(s): 995944653 (12) Severe mitral regurgitation by prior echocardiogram Current Visit: Yes Status: Chronic Code(s): I34.0 - NONRHEUMATIC MITRAL ( VALVE) INSUFFICIENCY SNOMED Code(s): 74464932 (13) Left carotid stenosis Current Visit: Yes Status: Chronic Code(s): I65.22 - OCCLUSION AND STENOSIS OF LEFT CAROTID ARTERY SNOMED Code(s): 522165418494555 Plan: 1. Continue low dose aspirin, statin, Lopressor. Will increase beta lencho therapy as tolerated. FASUTINO/ARB contraindicated secondary to hypotension, CARLOS. 2. Continue amiodarone for A. fib prophylaxis. Will decrease dose to 200 mg daily on February 14. Continue Eliquis for anticoagulation. 3. Nephrology consulted per primary care service secondary to continued increased BUN/creatinine. No nephrotoxic agents. IV fluids started yesterday, 1 dose 80 mg IV Lasix given last night 4. Urinalysis culture negative. Patient placed on Ceftin per primary care service. 5. Encourage incentive spirometry use 10 times every hour while awake. Encourage patient to cough. 6. Encourage continued smoking cessation. 7. Increase activity, ambulate as tolerated. PT/OT/cardiac rehab following. 8. Will monitor daily labs and chest x-rays. 9. Continue Flomax. Leave ness in for now, patient may have a trial of voiding once he is at rehab and acute issues have resolved. 10. Diabetic management per primary care service. 11. GI/DVT prophylaxis. 12. Discharge planning in progress. Patient will need rehab at discharge. Dr. Diego was consulted and is following. Insurance approval obtained for possible transfer to inpatient rehab. Would like kidney function more stable before transferring. Patient will need to have consults for cardiology, nephrology, and urology at [facility]. 13. More recommendations as patient progresses. Time with Patient: Greater than 30
[2018-02-11] MEDS: SENNOSIDES-DOCUSATE SODIUM 1 EACH TAB PO SCH ×2 (09:41→20:53)
--- NOTE | 2018-02-11 10:06 | P.PN ---
Subjective Progress Note Date: 02/11/18 Principal diagnosis: ASCAD HPI: Bird Maria~is a 77 y.o.~male~~being seen examined and evaluated today for consultation. This patient was admitted to the [facility] on 01/21/18-after coming in with complaints of dyspnea with no relief from his inhaler and having significant chest pressure. Patient was found to be in A. fib with RVR and was started on a heparin drip. Patient did have an echocardiogram which revealed an EF of 55% with severe mitral regurg is RVSP P was 53 mmHg. He also had a Karlee scan stress test that was also abnormal and a PATTIE with heart catheter, please see those notes for details. Currently the patient was transfered to [facility] on 01/27/18 for a CABG and mitral valve replacement. Upon examination the patient's resting up in bed on room air. He denies any shortness of breath cough or congestion at this time. He denies any smoking history however did state that he did chew tobacco on occasion. He denies any episodes of snoring however states that his sleep each night is very restless and he wakes up a minimum of 6 times per night. The patient has never had a workup for obstructive sleep apnea. Patient also states that he has had 2 previous surgeries 1 on his knee and shoulders and had no problems with anesthesiology, or waking up from surgery. Education has been provided to the patient on the extent of the surgery as well as education on mechanical ventilation intubation and extubation with possible best case scenario outcomes and worst-case scenario comes. Patient verbalizes understanding. Interval History: 01/29/18- patient is being seen examined and evaluated today on rounds. He is resting up in bed on room air. CT is feeling well. Has been ambulating in the hallway. Has been utilizing his incentive spirometer and pulling volumes of approximately 1750 arousals. He denies any cough or congestion at this time. Patient is planned for a CABG tomorrow with cardiothoracic surgery. Preop workup has been completed. He is afebrile no further complaints. All labs and reports have been reviewed. 01/30/2018: Patient seen and examined in the intensive care unit with nursing staff at bedside. The patient has returned from CABG and valve replacement. The patient is on full ventilator support. Ventilator has been adjusted and ABG reviewed. No current issues per nursing staff. 5/12-02/01/[address] АННА Smith notes 02/02/18- patient is being seen examined and evaluated today in the intensive care unit. Patient has been slightly hypotensive and his Primacor has been weaned off off, dopamine has been decreased as well per cardiothoracic services. He continues on insulin drip per protocol. Urine output has been 50- 60 miles per hour. He continues on 4 L of supplemental oxygen via nasal cannula. Does complain of some shortness of breath with exertion and activity. Denies any cough or congestion. He continues to have chest tubes in place to mediastinal and one left pleural itch chest tube did produce 50-70 miles overnight. Patient has been tolerating his clear liquid diet about 75% this morning. He did not need any BiPAP overnight. He continues to have epicardial pacer in VVI mode. He is afebrile no further complaints. 02/03/18- patient is being seen examined and evaluated today on rounds. Patient is resting up in bed on supplemental oxygen. He continues on Lasix drip insulin and dopamine. Patient has noted to have a BUN of 63, his Creatinine is increased to 3.7. Nephrology will be consulted. Chest x-ray was reviewed and does show some progressive pulmonary edema with small right-sided pleural effusion as well as cardiogenic fluid overload. Patient's blood pressure is stable. Per the nursing staff the patient may undergo his chest chest tube removal today. He is hemodynamically stable, no further complaints. Using his incentive spirometer. 02/04/18- patient is being seen examined and evaluated today on rounds. He remains in the intensive care unit. His BUN today is 77 g 3.6, nephrology was consulted yesterday and was subsequently canceled per the admitting team. Chest x-ray was reviewed and does show some improvement and CHF and improvement in the right pleural effusion. Patient was taken off Lasix drip and switched to IV push Lasix. His chest tube was removed yesterday. His dopamine is currently on hold. He is hemodynamically stable. 02/05/2018: Patient seen and examined. Patient has been transferred from the intensive care unit. His BUN today is 83 and creatinine is 3.4. The patient states he is having more pain today. He is currently sitting up in the chair. He states that he has had urinary retention and had to be straight cath this morning. He does have intermittent shortness of breath but states it is improving. 02/06/18-patient is being seen examined and evaluated today on the selective care unit. The patient was downgraded from the ICU yesterday. He is resting up in bed on room air. States he does not have any shortness of breath cough or congestion at this time. His BUN today is 87 g 3.5. He continues to have some urinary retention today and had to be straight cath again. The patient also complains of some constipation and is being put on a bowel regimen. He is afebrile no further complaints. Has been working with PT and OT. 02/07/18- patient is being seen examined and evaluated today on rounds. Patient is resting up in bed and intermittently using oxygen on and off. He still has some shortness of breath with exertion. He was able to have a bowel movement yesterday. He continues to have urinary retention and a Ness catheter had to be placed. Patient's BUN is 93 creatinine is 3.25. He continues with PT and OT patient will require inpatient rehab upon discharge. 02/08/2018: Patient seen and examined. Patient states he is starting to feel very weak and that he is having cramping in his hands. The patient states that he is getting very frustrated and wants to go home. He doesn't understand what is going on and why it's taking so long. He states his breathing has been okay. He did have an episode of hypotension this morning. Cardiothoracic surgery was notified. The patient's urine output has been adequate however his BUN is continually climbing to 100 and his creatinine today is 3.8. 02/09/18- patient is being seen examined and evaluated today on rounds. His breathing has been stable. He is on room air. He does have some shortness of breath with exertion and activity, denies any cough or congestion. Patient's Ness catheter was just discontinued this morning the patient has not urinated as of yet. It is noted today that his BUN continues to climb and is now 108 and his creatinine is now 3.8. Patient complains of achy restless legs. 02/10/18- patient seen seen examined and evaluated today on rounds. He is resting up in bed on room air. His chest x-ray was reviewed and does show some mild bibasilar atelectasis, doubt pneumonia. His sodium today is noted to be 126, BUN 109 creatinine is 4.0. WBCs 14.7. The patient states he feels short of breath and does have a congested cough without any sputum production. He has been using his incentive spirometer and pulling volumes of 1750. Nephrology is on consult and has started the patient on IV fluids. He continues to have urinary retention and needed to have another straight cath and 600 mL of urine was returned. Still complains of restless legs. He continues to work with PT and OT. Patient has discharge planning and process to inpatient rehab facility. 02/11/2018: Patient seen and examined. Patient states he doesn't feel well. He states his breathing is okay. He denies fevers and chills. He denies cough. He does not have chest pain. The patient will require hemodialysis today. Apparently he found out yesterday that his has terminal cancer. The patient did receive 1 dose of Lasix overnight due to low urine output. His BUN and creatinine continued to climb. Objective - Vital Signs Vital signs: Vital Signs Temp 97.1 F L 02/11/18 08:30 Pulse 74 02/11/18 08:30 Resp 18 02/11/18 08:30 BP 115/61 02/11/18 08:30 Pulse Ox 99 02/11/18 08:30 Intake & Output 02/10/18 02/11/18 02/11/18 18:59 06:59 18:59 Intake Total 100 930 Output Total 600 275 Balance 100 330 -275 Weight 103.6 kg 109 kg Intake: Intake, IV Titration 100 880 Amount Sodium Chloride 0.9% 1, 400 000 ml @ 50 mls/hr IV . Q20H [facility] Rx#:[id number] Sodium Chloride 0.9% 1, 480 000 ml @ 60 mls/hr IV . [id number] [facility] Rx#:[id number] Sodium Ferric Gluconat- 100 Sucrose 125 mg In Sodium Chloride 0.9% 100 ml @ 100 mls/hr IVPB DAILY [facility] Rx#:[id number] Oral 50 Output: Urine 600 275 Straight 275 Other: Voiding Method Indwelling Catheter Indwelling Catheter Indwelling Catheter ABP, PAP, CO, CI - Last Documented Arterial Blood Pressure 91/32 Pulmonary Artery Pressure 35/18 Cardiac Output 4.8 Cardiac Index 2.9 - Exam CONSTITUTIONAL: Patient is seen in no acute distress, generalized weakness HEENT: Head is normocephalic, atraumatic. Pupils are equal, conjunctiva clear. Neck is supple, trachea is midline. No JVD. RESPIRATORY: ~Lungs clear to auscultation. No wheezes, rales or rhonchi appreciated. Respirations are even and unlabored. Bases diminished bilaterally CARDIOVASCULAR: ~Heart is irregular rate and rhythm. S1 and S2 are heard. No murmur. GASTROINTESTINAL: ~Abdomen is soft, nontender, nondistended. Bowel sounds are positive. EXTREMITIES: ~No lower extremity edema is noted. Pedal pulses are palpable bilaterally. NEUROLOGICAL: ~Patient is alert and oriented 3. Speech is clear and interactive. No tremor is noted. - Labs CBC & Chem 7: 02/11/18 06:50 02/11/18 06:50 Labs: Abnormal Lab Results - Last 24 Hours (Table) 02/10/18 02/10/18 02/11/18 Range/Units 18:13 20:47 02:42 WBC (3.8-10.6) k/uL RBC (4.30-5.90) m/uL Hgb (13.0-17.5) gm/dL Hct (39.0-53.0) % RDW (11.5-15.5) % Neutrophils # (1.3-7.7) k/uL Lymphocytes # (1.0-4.8) k/uL Sodium 125 L (137-145) mmol/L Chloride 86 L (98-107) mmol/L BUN 112 H* (9-20) mg/dL Creatinine 4.09 H (0.66-1.25) mg/dL Glucose (74-99) mg/dL POC Glucose (mg/dL) 178 H 194 H (75-99) mg/dL Calcium 8.2 L (8.4-10.2) mg/dL Phosphorus (2.5-4.5) mg/dL Total Protein (6.3-8.2) g/dL 02/11/18 02/11/18 02/11/18 Range/Units 06:23 06:50 06:50 WBC 16.1 H (3.8-10.6) k/uL RBC 3.27 L (4.30-5.90) m/uL Hgb 9.1 L (13.0-17.5) gm/dL Hct 29.0 L (39.0-53.0) % RDW 16.0 H (11.5-15.5) % Neutrophils # 14.2 H (1.3-7.7) k/uL Lymphocytes # 0.5 L (1.0-4.8) k/uL Sodium 126 L (137-145) mmol/L Chloride 87 L (98-107) mmol/L BUN 115 H* (9-20) mg/dL Creatinine 4.21 H (0.66-1.25) mg/dL Glucose 148 H (74-99) mg/dL POC Glucose (mg/dL) 164 H (75-99) mg/dL Calcium 8.2 L (8.4-10.2) mg/dL Phosphorus 6.6 H (2.5-4.5) mg/dL Total Protein 6.0 L (6.3-8.2) g/dL Microbiology - Last 24 Hours (Table) 02/08/18 22:30 Urine Culture - Final Urine,Catheterized Assessment and Plan Assessment: Assessment: Chest pain Severe mitral regurgitation, s/p MVR ASCAD, s/p CABG 80-90% stenosis of his right coronary artery 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 Bedisde Oakley reviewed from [facility] reviewed, suggestive of restrictive lung disease, however, without lung volumes and full PFT cannot definitively diagnose. Monitor I & O's, ness catheter Outpatient PFT and PSG recommended. Incentive spirometry and pulmonary hygiene. Supplemental oxygen to maintain oxygen saturations greater than 90% if needed. GI and DVT prophylaxis. Patient will also benefit from an outpatient PSG once medically stable and discharged from the hospital. Patient being evaluated for inpatient rehab We will continue to monitor labs/results and adjust treatment as necessary. Discontinue flexeril Case discussed with nephrology: Plan for HD catheter placement and HD today Prognosis is guarded, continue to monitor closely
[2018-02-11 12:02] LABS: Glucose,Whole Blood 71 mg/dL (75-99)
--- NOTE | 2018-02-11 14:47 | P.PN ---
Subjective Progress Note Date: 02/11/18 This is 77-year-old gentleman transferred here from [facility], patient has two-vessel coronary artery disease and severe mitral regurg. He is scheduled to undergo surgery tomorrow. Patient was seen and examined this morning, doing well, denies any chest pain in his breathing has been stable. Blood pressure 115/70 with a heart rate in the 90s, 95% on room air. 02/09/2018 Patient was seen and examined this morning, status post mitral valve repair and coronary artery bypass grafting surgery 2. Patient has ambulated in the room to the doorway this morning, complaining of restless legs this morning. Breathing overall is stable. Blood pressure 100/60 with a heart rate in the 80s , 95% on room air. White blood cell count 12.2, hemoglobin 9.3, platelet count 308. Sodium 128, potassium 4.4, BUN 108, creatinine 3.8. 02/10/2018 Patient seen and examined this morning, mildly agitated, renal function continues to worsen with a creatinine today of 4. He is receiving normal saline at 50 mL per hour. Ambulating in his room only. Blood pressure 96/50, heart rate in the 80s. 02/11/2018 Patient seen and examined this morning, was given a dose of IV Lasix and diuresed well. Hemodynamically stable. Sodium 126, potassium 4.7, BUN 115, creatinine 4.2. Objective - Vital Signs Vital signs: Vital Signs Temp 97.2 F L 02/11/18 13:00 Pulse 72 02/11/18 13:00 Resp 18 02/11/18 13:00 BP 107/58 02/11/18 13:00 Pulse Ox 100 02/11/18 13:00 Intake & Output 02/10/18 02/11/18 02/11/18 18:59 06:59 18:59 Intake Total 100 930 820 Output Total 600 275 Balance 100 330 545 Weight 103.6 kg 109 kg Intake: Intake, IV Titration 100 880 820 Amount Sodium Chloride 0.9% 1, 400 000 ml @ 50 mls/hr IV . Q20H [facility] Rx#:[id number] Sodium Chloride 0.9% 1, 480 720 000 ml @ 60 mls/hr IV . [id number] [facility] Rx#:[id number] Sodium Ferric Gluconat- 100 100 Sucrose 125 mg In Sodium Chloride 0.9% 100 ml @ 100 mls/hr IVPB DAILY [facility] Rx#:[id number] Oral 50 Output: Urine 600 275 Straight 275 Other: Voiding Method Indwelling Catheter Indwelling Catheter Indwelling Catheter # Bowel Movements 1 ABP, PAP, CO, CI - Last Documented Arterial Blood Pressure 91/32 Pulmonary Artery Pressure 35/18 Cardiac Output 4.8 Cardiac Index 2.9 - Exam PHYSICAL EXAMINATION: HEENT: Head is atraumatic, normocephalic. Pupils equal, round. Neck is supple. There is no elevated jugular venous pressure. HEART EXAMINATION: Heart S1 S2 irregularly irregular . CHEST EXAMINATION: Lungs are clear with diminished air entry to bilateral bases. Sternum is stable. Heart had are in place. ABDOMEN: Soft, nontender. Bowel sounds are heard. No organomegaly noted. EXTREMITIES: 2+ peripheral pulses with no evidence of peripheral edema and no calf tenderness noted. Antiembolism stockings and SCDs in place. NEUROLOGIC patient is awake, alert and oriented -3. . - Labs CBC & Chem 7: 02/11/18 06:50 02/11/18 06:50 Labs: Abnormal Lab Results - Last 24 Hours (Table) 02/10/18 02/10/18 02/11/18 Range/Units 18:13 20:47 02:42 WBC (3.8-10.6) k/uL RBC (4.30-5.90) m/uL Hgb (13.0-17.5) gm/dL Hct (39.0-53.0) % RDW (11.5-15.5) % Neutrophils # (1.3-7.7) k/uL Lymphocytes # (1.0-4.8) k/uL Sodium 125 L (137-145) mmol/L Chloride 86 L (98-107) mmol/L BUN 112 H* (9-20) mg/dL Creatinine 4.09 H (0.66-1.25) mg/dL Glucose (74-99) mg/dL POC Glucose (mg/dL) 178 H 194 H (75-99) mg/dL Calcium 8.2 L (8.4-10.2) mg/dL Phosphorus (2.5-4.5) mg/dL Total Protein (6.3-8.2) g/dL 02/11/18 02/11/18 02/11/18 Range/Units 06:23 06:50 06:50 WBC 16.1 H (3.8-10.6) k/uL RBC 3.27 L (4.30-5.90) m/uL Hgb 9.1 L (13.0-17.5) gm/dL Hct 29.0 L (39.0-53.0) % RDW 16.0 H (11.5-15.5) % Neutrophils # 14.2 H (1.3-7.7) k/uL Lymphocytes # 0.5 L (1.0-4.8) k/uL Sodium 126 L (137-145) mmol/L Chloride 87 L (98-107) mmol/L BUN 115 H* (9-20) mg/dL Creatinine 4.21 H (0.66-1.25) mg/dL Glucose 148 H (74-99) mg/dL POC Glucose (mg/dL) 164 H (75-99) mg/dL Calcium 8.2 L (8.4-10.2) mg/dL Phosphorus 6.6 H (2.5-4.5) mg/dL Total Protein 6.0 L (6.3-8.2) g/dL 02/11/18 Range/Units 11:40 WBC (3.8-10.6) k/uL RBC (4.30-5.90) m/uL Hgb (13.0-17.5) gm/dL Hct (39.0-53.0) % RDW (11.5-15.5) % Neutrophils # (1.3-7.7) k/uL Lymphocytes # (1.0-4.8) k/uL Sodium (137-145) mmol/L Chloride (98-107) mmol/L BUN (9-20) mg/dL Creatinine (0.66-1.25) mg/dL Glucose (74-99) mg/dL POC Glucose (mg/dL) 71 L (75-99) mg/dL Calcium (8.4-10.2) mg/dL Phosphorus (2.5-4.5) mg/dL Total Protein (6.3-8.2) g/dL Microbiology - Last 24 Hours (Table) 02/08/18 22:30 Urine Culture - Final Urine,Catheterized Assessment and Plan Plan: Assessment and plan #1 coronary artery disease and severe mitral regurgitation, status post mitral valve repair and coronary artery bypass grafting surgery times 2. #2 hyperlipidemia #3 diabetes #4 hypertension Plan We will continue the current medications the patient is on, patient is been encouraged to continue ambulating in his room and continue the use of incentive spirometry. Arrangements are being made for rehab. DNP note has been reviewed, I agree with a documented findings and plan of care. Patient was seen and examined.
[2018-02-11] MEDS: HYDROcodone/APAP 7.5-325MG 1 EACH TAB PO PRN ×2 (15:10→19:48)
[2018-02-11] MEDS: SODIUM CHLORIDE 0.9% 1,000 ML IV SCH (15:12)
[2018-02-11] MEDS ORDERED: FUROSEMIDE 10 MG/ML 10 ML VIAL IV STA (16:24)
[2018-02-11 17:00] LABS: Glucose,Whole Blood 157 mg/dL (75-99)
--- NOTE | 2018-02-11 20:16 | P.PN ---
Subjective Progress Note Date: 02/11/18 This is a 69 HO pleasant gentleman patient of Dr. Cardoso with underlying history of CAD with prior PCI stent placement, hypertension hypertensive cardiovascular disease hyperlipidemia and diabetes mellitus type 2 asthma OR arthritis COPD admitted to [facility] and was found on imaging studies secondary to his chest pain new onset atrial fibrillation with RVR and shortness of breath, cardiac cath performed 01/26/2018 showing 80% stenosis of RCA, 70% stenoses of the left circumflex involving the AV groove circumflex ostial portion, severe mitral regurgitation, dilated left ventricle ejection fraction 50-55%. He was transferred to [facility] for mitral valve placement and CABG 2 vessel critical stenosis involving left circumflex and right coronary artery. CABG most likely would be anticipated to be done January 30 He was seen at [facility] by , for pulmonary clearance, pertinent laboratories creatinine 1.01 hemoglobin 12.4 TSH 0.93 hemoglobin A1c not done,. Patient currently is on basal bolus Levemir and premeal coverage, instead of home oral medication, continue on Januvia 100 mg at bedtime, cardiology to see, Dr. Marte for consult and consult to Dr. Spicer cardiothoracic, Dr. Salas cardiology. He should maintain IV heparin 01/29: Patient is followed by Dr. Marte and Dr. VC Fry. Patient is scheduled for coronary artery bypass surgery and mitral valve replacement or repair on Friday. Blood sugars are running 156-193. Additional 2units of Novolog added premeal until surgery. Patient states his blood sugars are usually 100-130 at home. 01/30: Patient is going for surgery. 01/31 Patient is postoperative day 1 with mitral valve repair, coronary artery bypass grafting X2. Patient examined bed side. Appears tired. Complains of shortness of breath intermittently. Currently on 2 L of oxygen. Blood pressure continues to drop to systolic in low 80. Initiated on norepinephrine added low -dose. Chest x-ray suggested worsening vascular congestion and pleural effusion. Received 1 dose 80 mg IV Lasix today [place] catheter removed today. Patient is extubated since this morning. 02/01 Patient has increased cough and congestion, on 6 L nasal cannula. CXR concerning for cngestion and pleural effusion. on lasix drip. Lantus increased to 15 units bedtime to decrease insulin requirement. Continue trodjenta 5 mg po daily while in hospital. COntinue insulin drip, plan to switich to sliding scale if not much requirement on drip. Continue metoprolol 25 mg op BID 02/02: Patient has been evaluated by Dr. Diego and may be a candidate for inpatient. Primacor has been discontinued. Patient is currently on dopamine, insulin drip and Lasix drip. Epicardial wires and chest tube out today. Blood sugars are running between 101 and 174. White count has jumped to 19.7 and renal function is worsening with BUN 49 creatinine 3.06. The patient states he did eat his breakfast this morning. 02/03: Renal function continues to worsen with BUN 63 and creatinine 3.70 and phosphorus level continues to rise currently at 6.8. PhosLo will be added. Parathyroid hormone intact will be ordered. Consult with nephrology was added by pulmonary medicine but this was subsequently canceled. Regarding his blood sugars, insulin drip will be discontinued and Levemir will be increased to 20 units at bedtime. Patient is also on dopamine and insulin drips. Lasix drip was discontinued and patient switched to IV Lasix. tle. 02/04: 02/04: Patient is now off dopamine. Insulins will be adjusted to NovoLog 5 units with meals and Levemir 12 units twice daily and insulin drip will be discontinued. Ensure will be started as patient is eating very little. Repeat BUN 77 creatinine 3.60. Parathyroid intact is 114 and patient will need follow- up with nephrology as an outpatient. 02/05: Blood sugars are elevated and his morning 70/30 insulin will be increased to 23 units and evening to 20 units. Scheduled NovoLog will be increased to 8 units with meals. Patient ate about 75% of his dinner last night and 25% of his breakfast. He is taking some Ensure. Patient to be transferred to [facility] today. 02/06: Patient is now seen on the selective care unit. Repeat chest x-ray shows persistent mild pulmonary vascular congestion and trace right pleural effusion. Left pleural effusion has resolved. No pneumothorax. Blood sugars are improved on current regime running between 111 and 145. BUN is 87 and creatinine 3.5. Hemoglobin is 9.6. Patient is working with PT and OT and is easily fatigued. At this point still anticipating discharge to [facility] for inpatient rehab once patient is cleared by cardiothoracic surgery. 02/09: Patient's kidney function slightly red worse we'll consult nephrology, he is more medically stable and will need probably to go to rehab from here for a period of time is still debilitated. Had more hematoma and bruise on the right leg area side of his graft for his bypass. His mobility still significantly decreased currently. We will continue PTOT and plan possibly if his stable otherwise including kidney function and cardiovascular might be discharged in the next 2 days to rehab at [facility]. 02/10: Renal function has continued to worsen with a creatinine of 4. He has been started on normal saline at 50 mL/h and diuretics are on hold. Narvaez catheter to be reinserted, 1.2 L fluid restriction and patient have repeat labs done this afternoon. Patient has been started on Ferrlecit IV 3 days. Renal ultrasound ordered. Patient is anticipating inpatient rehab. 02/11: Patient did sleep better last night for the first time. He still feels exhausted. Patient has not had bowel movement since last week. Senokot S changed to twice daily, MOM and prune juice to be given, fleets if necessary. Patient continues to suffer from worsening renal failure and is in need of dialysis. BUN 115 and creatinine 4.21, sodium 126 and hgb 9.1. Vascular consult has been placed by nephrology. Patient found out yesterday that his has been diagnosed with stage 4 cancer. He continues to complain of itchiness. Objective - Vital Signs Vital signs: Vital Signs Temp 97.4 F L 02/11/18 04:00 Pulse 72 02/11/18 07:40 Resp 18 02/11/18 04:00 BP 130/57 02/11/18 04:00 Pulse Ox 98 02/11/18 04:00 Intake & Output 02/10/18 02/11/18 02/11/18 18:59 06:59 18:59 Intake Total 100 930 Output Total 600 275 Balance 100 330 -275 Weight 103.6 kg 109 kg Intake: Intake, IV Titration 100 880 Amount Sodium Chloride 0.9% 1, 400 000 ml @ 50 mls/hr IV . Q20H [facility] Rx#:[id number] Sodium Chloride 0.9% 1, 480 000 ml @ 60 mls/hr IV . [id number] [facility] Rx#:[id number] Sodium Ferric Gluconat- 100 Sucrose 125 mg In Sodium Chloride 0.9% 100 ml @ 100 mls/hr IVPB DAILY [facility] Rx#:[id number] Oral 50 Output: Urine 600 275 Straight 275 Other: Voiding Method Indwelling Catheter Indwelling Catheter ABP, PAP, CO, CI - Last Documented Arterial Blood Pressure 91/32 Pulmonary Artery Pressure 35/18 Cardiac Output 4.8 Cardiac Index 2.9 - Exam General appearance: Present: cooperative, disheveled, no acute distress, obese. Absent: average body habitus, mild distress, morbidly obese, severe distress, thin - EENT Eyes: Present: normal appearance. Absent: abnormal pupil, anicteric sclerae, disc margins sharp, edentulous, EOMI, PERRLA, fundus normal, photophobia, dentition normal, poor dentition, ptosis, scleral icterus ENT: Present: hard of hearing, pharyngeal erythema. Absent: hearing grossly normal, NA/AT, normal oropharynx, other, thrush, tonsillar exudates, tonsillar swelling Ears: bilateral: normal - Neck Neck: Present: normal ROM. Absent: lymphadenopathy, other, rigidity, stridor, thyromegaly Carotids: bilateral: upstroke normal Thyroid: bilateral: normal size - Respiratory Respiratory: left: dullness, rales, bilateral: diminished, wheezing, prolonged expiration - Cardiovascular Rhythm: regular Heart sounds: normal: S1, S2 Abnormal Heart Sounds: Present: systolic murmur, S3 Gallop - Gastrointestinal General gastrointestinal: Present: distended, normal bowel sounds, soft. Absent : absent bowel sounds, decreased bowel sounds, hepatomegaly, hyperactive bowel sounds, organomegaly, rigid, scaphoid, splenomegaly, tenderness, umbilical hernia, ventral hernia - Integumentary Integumentary: Present: cellulitis, normal, pale, rash. Absent: calor, cyanotic , decreased turgor, flushed, jaundiced, normal turgor, ulcer - Neurologic Neurologic: Present: CNII-XII intact - Musculoskeletal Musculoskeletal: Present: gait normal, generalized weakness, strength equal bilaterally. Absent: right sided weakness, left sided weakness - Psychiatric Psychiatric: Present: A&O x's 3, appropriate affect. Absent: intact judgment & insight - Labs CBC & Chem 7: 02/11/18 06:50 02/11/18 06:50 Labs: Abnormal Lab Results - Last 24 Hours (Table) 02/10/18 02/10/18 02/11/18 Range/Units 18:13 20:47 02:42 WBC (3.8-10.6) k/uL RBC (4.30-5.90) m/uL Hgb (13.0-17.5) gm/dL Hct (39.0-53.0) % RDW (11.5-15.5) % Neutrophils # (1.3-7.7) k/uL Lymphocytes # (1.0-4.8) k/uL Sodium 125 L (137-145) mmol/L Chloride 86 L (98-107) mmol/L BUN 112 H* (9-20) mg/dL Creatinine 4.09 H (0.66-1.25) mg/dL Glucose (74-99) mg/dL POC Glucose (mg/dL) 178 H 194 H (75-99) mg/dL Calcium 8.2 L (8.4-10.2) mg/dL Phosphorus (2.5-4.5) mg/dL Total Protein (6.3-8.2) g/dL 02/11/18 02/11/18 02/11/18 Range/Units 06:23 06:50 06:50 WBC 16.1 H (3.8-10.6) k/uL RBC 3.27 L (4.30-5.90) m/uL Hgb 9.1 L (13.0-17.5) gm/dL Hct 29.0 L (39.0-53.0) % RDW 16.0 H (11.5-15.5) % Neutrophils # 14.2 H (1.3-7.7) k/uL Lymphocytes # 0.5 L (1.0-4.8) k/uL Sodium 126 L (137-145) mmol/L Chloride 87 L (98-107) mmol/L BUN 115 H* (9-20) mg/dL Creatinine 4.21 H (0.66-1.25) mg/dL Glucose 148 H (74-99) mg/dL POC Glucose (mg/dL) 164 H (75-99) mg/dL Calcium 8.2 L (8.4-10.2) mg/dL Phosphorus 6.6 H (2.5-4.5) mg/dL Total Protein 6.0 L (6.3-8.2) g/dL Microbiology - Last 24 Hours (Table) 02/08/18 22:30 Urine Culture - Final Urine,Catheterized Assessment and Plan Plan: 1. Severe mitral regurgitation and CAD with 2 vessel critical stenosis s/p CABG , and mitral valve repair, Dr. Spicer from cardiovascular surgery. Cardiology is following. Dr. Vides is covering for intensive care management. extubated. Continue eliquis, aspirin 81 mg daily, Lipitor 40 mg daily. Continue amiodarone 200 mg twice daily 2. Diabetes mellitus type 2. Continue Levemir 23 units in the morning, 20 units in the evening, NovoLog 8 units with meals and scale. 3. New onset atrial fibrillation, paroxysmal, currently on oral amiodarone and metoprolol tartrate 12.5 mg twice daily 4. Acute kidney injury with CKD stage II with baseline creatinine 1.01, continue to monitor. Nephrology consult is appreciated. Patient has been started on normal saline at 50 mL per hour, diuretics on hold, avoid nephrotoxic agents and hypotensive episodes. Narvaez catheter to be replaced. 1.2 L fluid restriction. Vascular consult for dialysis access. 5. Hyperphosphatemia secondary to acute kidney injury. PhosLo added. Parathyroid hormone intact is elevated. 6. CAD with previous PCI and stent placement with recent cardiac cath [address] Reynolds found to have 60-70% stenosis involving left circumflex AV groove circumflex ostial portion, and RCA 80% stenosis mid RCA, EF 50-55% left ventricle end-diastolic pressure 14 severe mitral regurgitation. 7. BPH without urinary tract symptomatology. Continue Flomax or 0.8 mg at bedtime daily. Monitor for urinary retention. 8. Mild intermittent asthma without any current exacerbation with COPD and when necessary nebulizer, incentive spirometry, 9. Hypertensive cardiovascular disease. Patient on Lopressor. 10. History of skin cancer 11. Osteoarthritis, generalized. 12. Hyperlipidemia on Lipitor 40 mg daily 13. Anemia secondary to renal failure. Patient started on Ferrlecit 3 days GI prophylaxis. Protonix DVT prophylaxis Discharge plan: Inpatient rehab Impression and plan of care have been directed as dictated by the signing physician. Zoya Lenz nurse practitioner acting as scribe for signing physician.
[2018-02-11] MEDS: TAMSULOSIN 0.4 MG CAP.ER.24H PO SCH (20:54)
[2018-02-11] MEDS: LINAGLIPTIN 5 MG TABLET PO SCH (20:55)
[2018-02-11 20:57] LABS: Glucose,Whole Blood 90 mg/dL (75-99)
[2018-02-12] MEDS: HYDROcodone/APAP 7.5-325MG 1 EACH TAB PO PRN ×3 (01:19→20:21)
[2018-02-12] MEDS: SODIUM CHLORIDE 0.9% 1,000 ML IV SCH (01:19)
[2018-02-12 02:09] LABS: Glucose,Whole Blood 123 mg/dL (75-99)
[2018-02-12 05:50] LABS: Glucose,Whole Blood 129 mg/dL (75-99)
[2018-02-12] MEDS: INSULIN ASPART 100 UNIT/ML 1 ML 10 ML VIAL SQ SCH ×7 (05:50→22:31)
[2018-02-12] MEDS: CALCIUM ACETATE 667 MG CAP PO SCH ×3 (05:57→16:36)
[2018-02-12] MEDS: PANTOPRAZOLE 40 MG TABLET PO SCH (05:57)
[2018-02-12 06:10] LABS: Basophils # (A) 0.1 k/uL (0-0.2); Basophils % (A) 0 %; Eosinophils # (A) 0.4 k/uL (0-0.7); Eosinophils % (A) 2 %; HCT 29.2 % (39.0-53.0); HGB 9.3 gm/dL (13.0-17.5); Hypochromasia Slight; Lymphocytes # (A) 0.6 k/uL (1.0-4.8); Lymphocytes % (A) 3 %; MCH 28.3 pg (25.0-35.0); MCHC 31.8 g/dL (31.0-37.0); Mean Platelet Volume 6.9; Monocytes # (A) 0.8 k/uL (0-1.0); Monocytes % (A) 5 %; Neutrophils # (A) 14.9 k/uL (1.3-7.7); Neutrophils % (A) 88 %; Platelet Count 351 k/uL (150-450); RBC 3.28 m/uL (4.30-5.90)
[2018-02-12 06:17] LABS: INR 1.1 (<1.2); Partial Thromboplastin Time 30.2 sec (22.0-30.0); Prothrombin Time 10.9 sec (9.0-12.0)
[2018-02-12 06:21] LABS: Albumin 3.4 g/dL (3.5-5.0); Phosphorus 6.2 mg/dL (2.5-4.5); Potassium 4.8 mmol/L (3.5-5.1); Total Bilirubin 1.2 mg/dL (0.2-1.3)
--- NOTE | 2018-02-12 07:15 | P.PN ---
Subjective Progress Note Date: 02/12/18 Principal diagnosis: Severe mitral regurgitation. 2 vessel coronary artery disease. New onset preoperative paroxysmal atrial fibrillation. 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 POD #13 urgent mitral valve repair with a #30 mm Carbo[employer] annular flex band. Clip ligation of the left atrial appendage with a #35 mm AtriClip. Coronary bypass grafting 2 with reverse saphenous vein graft off the aorta to the circumflex artery and the right coronary artery. Endoscopic harvesting of the right greater saphenous vein. Complete left-sided maze procedure using radiofrequency ablation as well as cryoablation. Intraoperative transesophageal echocardiogram. Postoperative hypotension and low urine output requiring combination of IV pressors, lasix, and inotropic support secondary to low cardiac output, intravascular hypovolemia, an unexpected but potential outcome of surgery. Postoperative nonoliguric acute kidney injury secondary to ATN, an unexpected but potential outcome of surgery secondary to hemodynamic instability. Postoperative urinary retention, an unexpected but potential outcome with the patient having a previous history of urinary retention after surgery. The patient is currently sitting up in bed in no acute distress. Complains of heartburn. States shortness of breath is better. Denies nausea this morning. Patient is refusing to ambulate in the hallway, will only ambulate in the room. Patient was supposed to have temporary dialysis catheter placed yesterday, however he is on Eliquis and this will need to be held for placement. Objective - Vital Signs Vital signs: Vital Signs Temp 96.1 F L 02/12/18 04:00 Pulse 67 02/12/18 04:00 Resp 18 02/12/18 04:00 BP 111/59 02/12/18 04:00 Pulse Ox 100 02/12/18 04:00 Intake & Output 02/11/18 02/12/18 02/12/18 18:59 06:59 18:59 Intake Total 920 Output Total 475 575 Balance 445 -575 Weight 109 kg Intake: Intake, IV Titration 820 Amount Sodium Chloride 0.9% 1, 720 000 ml @ 60 mls/hr IV . [id number] [facility] Rx#:[id number] Sodium Ferric Gluconat- 100 Sucrose 125 mg In Sodium Chloride 0.9% 100 ml @ 100 mls/hr IVPB DAILY [facility] Rx#:[id number] Oral 100 Output: Urine 475 575 Straight 475 200 Other: Voiding Method Indwelling Catheter Indwelling Catheter # Voids 0 1 # Bowel Movements 1 ABP, PAP, CO, CI - Last Documented Arterial Blood Pressure 91/32 Pulmonary Artery Pressure 35/18 Cardiac Output 4.8 Cardiac Index 2.9 - Constitutional General appearance: Present: cooperative, no acute distress, obese - Respiratory Details: Lungs sounds diminished bilaterally. Respirations even, nonlabored. Currently on room air with oxygen saturation 100%. Able to achieve 1250 mL on his incentive spirometry this morning. Productive cough with yellow sputum.. - Cardiovascular Details: S1, S2 present. Irregular rate and rhythm, controlled atrial fibrillation on telemetry. Sternum stable. Palpable peripheral pulses bilaterally. No edema present. No calf pain or tenderness noted. Antiembolism stockings, SCDs present. Heart hugger in place with patient demonstrating appropriate use. - Gastrointestinal Gastrointestinal Comment(s): Abdomen soft, round, nontender, nondistended. Active bowel sounds present 4 quadrants. Tolerating diet. Positive bowel movement x 2 yesterday. - Genitourinary Genitourinary Comment(s): Ness present draining clear, yellow urine. Output 685 mL overnight. - Integumentary Integumentary Comment(s): Skin is warm and dry with evidence of good perfusion. Anterior chest incision well approximated and covered with dry intact dressing. Right lower extremity EVH site well approximated, area of firmness present in the right inner thigh, common from tunnel created when harvesting vein. - Neurologic Neurologic: Present: CNII-XII intact - Musculoskeletal Musculoskeletal: Present: generalized weakness - Psychiatric Psychiatric: Present: A&O x's 3, appropriate affect, intact judgment & insight - Allied health notes Allied health notes reviewed: nursing - Labs CBC & Chem 7: 02/12/18 05:23 02/12/18 05:23 Labs: Abnormal Lab Results - Last 24 Hours (Table) 02/11/18 02/11/18 02/11/18 Range/Units 06:50 06:50 11:40 WBC 16.1 H (3.8-10.6) k/uL RBC 3.27 L (4.30-5.90) m/uL Hgb 9.1 L (13.0-17.5) gm/dL Hct 29.0 L (39.0-53.0) % RDW 16.0 H (11.5-15.5) % Neutrophils # 14.2 H (1.3-7.7) k/uL Lymphocytes # 0.5 L (1.0-4.8) k/uL APTT (22.0-30.0) sec Sodium 126 L (137-145) mmol/L Chloride 87 L (98-107) mmol/L BUN 115 H* (9-20) mg/dL Creatinine 4.21 H (0.66-1.25) mg/dL Glucose 148 H (74-99) mg/dL POC Glucose (mg/dL) 71 L (75-99) mg/dL Calcium 8.2 L (8.4-10.2) mg/dL Phosphorus 6.6 H (2.5-4.5) mg/dL Total Protein 6.0 L (6.3-8.2) g/dL Albumin (3.5-5.0) g/dL 02/11/18 02/12/18 02/12/18 Range/Units 16:33 02:07 05:23 WBC 17.0 H (3.8-10.6) k/uL RBC 3.28 L (4.30-5.90) m/uL Hgb 9.3 L (13.0-17.5) gm/dL Hct 29.2 L (39.0-53.0) % RDW 16.0 H (11.5-15.5) % Neutrophils # 14.9 H (1.3-7.7) k/uL Lymphocytes # 0.6 L (1.0-4.8) k/uL APTT (22.0-30.0) sec Sodium (137-145) mmol/L Chloride (98-107) mmol/L BUN (9-20) mg/dL Creatinine (0.66-1.25) mg/dL Glucose (74-99) mg/dL POC Glucose (mg/dL) 157 H 123 H (75-99) mg/dL Calcium (8.4-10.2) mg/dL Phosphorus (2.5-4.5) mg/dL Total Protein (6.3-8.2) g/dL Albumin (3.5-5.0) g/dL 02/12/18 02/12/18 02/12/18 Range/Units 05:23 05:23 05:48 WBC (3.8-10.6) k/uL RBC (4.30-5.90) m/uL Hgb (13.0-17.5) gm/dL Hct (39.0-53.0) % RDW (11.5-15.5) % Neutrophils # (1.3-7.7) k/uL Lymphocytes # (1.0-4.8) k/uL APTT 30.2 H (22.0-30.0) sec Sodium 126 L (137-145) mmol/L Chloride 88 L (98-107) mmol/L BUN 114 H* (9-20) mg/dL Creatinine 4.13 H (0.66-1.25) mg/dL Glucose 100 H (74-99) mg/dL POC Glucose (mg/dL) 129 H (75-99) mg/dL Calcium 8.0 L (8.4-10.2) mg/dL Phosphorus 6.2 H (2.5-4.5) mg/dL Total Protein 6.0 L (6.3-8.2) g/dL Albumin 3.4 L (3.5-5.0) g/dL - Imaging and Cardiology Chest x-ray: image reviewed Assessment and Plan (1) Paroxysmal atrial fibrillation Current Visit: Yes Status: Acute Code(s): I48.0 - PAROXYSMAL ATRIAL FIBRILLATION SNOMED Code(s): 126123533 (2) Acute kidney injury Current Visit: Yes Status: Acute Code(s): N17.9 - ACUTE KIDNEY FAILURE, UNSPECIFIED SNOMED Code(s): 19285119 (3) History of skin cancer Current Visit: No Status: Resolved Code(s): Z85.828 - PERSONAL HISTORY OF OTHER MALIGNANT NEOPLASM OF SKIN SNOMED Code(s): 627880907 (4) Asthma Current Visit: Yes Status: Acute Code(s): J45.909 - UNSPECIFIED ASTHMA, UNCOMPLICATED SNOMED Code(s): 011115783 (5) COPD (chronic obstructive pulmonary disease) Current Visit: Yes Status: Chronic Code(s): J44.9 - CHRONIC OBSTRUCTIVE PULMONARY DISEASE, UNSPECIFIED SNOMED Code(s): 57732836 (6) Diabetes mellitus type 2 in obese Current Visit: Yes Status: Chronic Code(s): E11.69 - TYPE 2 DIABETES MELLITUS WITH OTHER SPECIFIED COMPLICATION; E66.9 - OBESITY, UNSPECIFIED SNOMED Code(s): 78454014 (7) Enlarged prostate Current Visit: Yes Status: Chronic Code(s): N40.0 - BENIGN PROSTATIC HYPERPLASIA WITHOUT LOWER URINRY TRACT SYMP SNOMED Code(s): 257323980 (8) Hyperlipidemia Current Visit: Yes Status: Chronic Code(s): E78.5 - HYPERLIPIDEMIA, UNSPECIFIED SNOMED Code(s): 71904173 (9) Hypertension Current Visit: Yes Status: Chronic Code(s): I10 - ESSENTIAL (PRIMARY) HYPERTENSION SNOMED Code(s): 04465696 (10) Personal history of nicotine dependence Current Visit: No Status: Resolved Code(s): Z87.891 - PERSONAL HISTORY OF NICOTINE DEPENDENCE SNOMED Code(s): 21463433 (11) Presence of stent in coronary artery in patient with coronary artery disease Current Visit: Yes Status: Chronic Code(s): I25.10 - ATHSCL HEART DISEASE OF [place] CORONARY ARTERY W/O ANG PCTRS; Z95.5 - PRESENCE OF CORONARY ANGIOPLASTY IMPLANT AND GRAFT SNOMED Code(s): 450126929 (12) Severe mitral regurgitation by prior echocardiogram Current Visit: Yes Status: Chronic Code(s): I34.0 - NONRHEUMATIC MITRAL ( VALVE) INSUFFICIENCY SNOMED Code(s): 07352011 (13) Left carotid stenosis Current Visit: Yes Status: Chronic Code(s): I65.22 - OCCLUSION AND STENOSIS OF LEFT CAROTID ARTERY SNOMED Code(s): 019291878195885 Plan: 1. Continue low dose aspirin, statin, Lopressor. FAUSTINO/ARB contraindicated secondary to hypotension, CARLOS. 2. Continue amiodarone for A. fib prophylaxis. Will decrease dose to 200 mg daily on February 14. Continue Eliquis for anticoagulation, currently on hold for temporary dialysis catheter placement. 3. Nephrology consulted per primary care service. No nephrotoxic agents. Patient to receive dialysis catheter and have dialysis today. 4. Urinalysis culture negative. Patient on Ceftin per primary care service. 5. Encourage incentive spirometry use 10 times every hour while awake. Encourage patient to cough. 6. Encourage continued smoking cessation. 7. Increase activity, ambulate as tolerated. PT/OT/cardiac rehab following. 8. Will monitor daily labs and chest x-rays. 9. Continue Flomax. Leave ness in for now, patient may have a trial of voiding once he is at rehab and acute issues have resolved. 10. Diabetic management per primary care service. 11. GI/DVT prophylaxis. 12. Discharge planning in progress. Patient will need rehab at discharge. Dr. Diego was consulted and is following. Insurance approval obtained for possible transfer to inpatient rehab. Would like kidney function more stable before transferring. Patient will need to have consults for cardiology, nephrology, and urology at [facility]. Likely will be able to go to inpatient rehab tomorrow. 13. More recommendations as patient progresses. Time with Patient: Greater than 30
--- NOTE | 2018-02-12 07:30 | XR ---
EXAMINATION TYPE: XR chest 2V DATE OF EXAM: 02/12/2018 COMPARISON: 02/11/2018 HISTORY: Post cardiac surgery. Follow-up exam. Shortness of breath. TECHNIQUE: Frontal and lateral views of the chest are obtained. FINDINGS: Right basilar airspace disease has improved in the interim and the remaining trace pleural effusions. Pulmonary vascular congestion has also improved in the interim. Post CABG changes the [address] are noted with mild cardiac enlargement. Partial visualization of postsurgical change of the right humerus is seen. IMPRESSION: Improved degree of pulmonary vascular congestion, improved right basilar probable atelec tasis, and stable trace pleural effusions.
[2018-02-12] MEDS: MAG HYDROX/AL HYDROX/SIMETH 30 ML CUP PO PRN ×2 (07:49→17:50)
[2018-02-12] MEDS: AMIODARONE 200 MG TAB PO SCH ×2 (07:51→20:18)
[2018-02-12] MEDS: ATORVASTATIN 40 MG TAB PO SCH (07:51)
[2018-02-12] MEDS: SENNOSIDES-DOCUSATE SODIUM 1 EACH TAB PO SCH ×2 (07:51→20:19)
[2018-02-12] MEDS: METOPROLOL TARTRATE 12.5 MG TAB PO SCH ×2 (07:52→20:18)
[2018-02-12] MEDS: guaiFENesin 600 MG TABLET.ER PO SCH ×2 (07:53→20:18)
[2018-02-12] MEDS: INSULIN DETEMIR 100 UNIT/ML 10 ML VIAL SQ SCH ×2 (07:53→22:31)
[2018-02-12] MEDS: ASPIRIN 81 MG PO SCH (07:56)
[2018-02-12] MEDS: IPRATROPIUM-ALBUTEROL 3 ML NEB INHALATION SCH ×4 (08:00→19:57)
--- NOTE | 2018-02-12 08:48 | P.PN ---
Subjective Patient is seen in follow-up for acute kidney injury. His baseline creatinine is 1 and is peaked at 4.21 on February 11 - 4.13 today. Patient was receiving IV diuresis which was discontinued on February 08. Oral intake is just fair. Narvaez catheter was reinserted due to urinary retention. Denies chest pain or shortness of breath. He is status post CABG 2 and mitral valve repair done 07/2018. I did challenge him with 80 mg of IV Lasix yesterday and his urine output is documented as over 1 L. Vital signs are stable. General: The patient appeared well nourished and normally developed. HEENT: Head exam is unremarkable. Neck is without jugular venous distension. LUNGS: Lungs are clear to auscultation and percussion. Breath sounds decreased. HEART: Rate and Rhythm are regular. First and second heart sounds normal. No murmurs, rubs or gallops. ABDOMEN: Abdominal exam reveals normal bowel sounds. Non-tender and non- distended. No evidence of peritonitis. EXTREMITITES: No clubbing, cyanosis, or edema. Objective - Vital Signs Vital signs: Vital Signs Temp 96.1 F L 02/12/18 04:00 Pulse 72 02/12/18 08:15 Resp 18 02/12/18 04:00 BP 111/59 02/12/18 04:00 Pulse Ox 100 02/12/18 04:00 Intake & Output 02/11/18 02/12/18 02/12/18 18:59 06:59 18:59 Intake Total 920 Output Total 475 575 Balance 445 -575 Weight 109 kg Intake: Intake, IV Titration 820 Amount Sodium Chloride 0.9% 1, 720 000 ml @ 60 mls/hr IV . [id number] [facility] Rx#:[id number] Sodium Ferric Gluconat- 100 Sucrose 125 mg In Sodium Chloride 0.9% 100 ml @ 100 mls/hr IVPB DAILY [facility] Rx#:[id number] Oral 100 Output: Urine 475 575 Straight 475 200 Other: Voiding Method Indwelling Catheter Indwelling Catheter # Voids 0 1 # Bowel Movements 1 ABP, PAP, CO, CI - Last Documented Arterial Blood Pressure 91/32 Pulmonary Artery Pressure 35/18 Cardiac Output 4.8 Cardiac Index 2.9 - Labs CBC & Chem 7: 02/12/18 05:23 02/12/18 05:23 Labs: Abnormal Lab Results - Last 24 Hours (Table) 02/11/18 02/11/18 02/12/18 Range/Units 11:40 16:33 02:07 WBC (3.8-10.6) k/uL RBC (4.30-5.90) m/uL Hgb (13.0-17.5) gm/dL Hct (39.0-53.0) % RDW (11.5-15.5) % Neutrophils # (1.3-7.7) k/uL Lymphocytes # (1.0-4.8) k/uL APTT (22.0-30.0) sec Sodium (137-145) mmol/L Chloride (98-107) mmol/L BUN (9-20) mg/dL Creatinine (0.66-1.25) mg/dL Glucose (74-99) mg/dL POC Glucose (mg/dL) 71 L 157 H 123 H (75-99) mg/dL Calcium (8.4-10.2) mg/dL Phosphorus (2.5-4.5) mg/dL Total Protein (6.3-8.2) g/dL Albumin (3.5-5.0) g/dL 02/12/18 02/12/18 02/12/18 Range/Units 05:23 05:23 05:23 WBC 17.0 H (3.8-10.6) k/uL RBC 3.28 L (4.30-5.90) m/uL Hgb 9.3 L (13.0-17.5) gm/dL Hct 29.2 L (39.0-53.0) % RDW 16.0 H (11.5-15.5) % Neutrophils # 14.9 H (1.3-7.7) k/uL Lymphocytes # 0.6 L (1.0-4.8) k/uL APTT 30.2 H (22.0-30.0) sec Sodium 126 L (137-145) mmol/L Chloride 88 L (98-107) mmol/L BUN 114 H* (9-20) mg/dL Creatinine 4.13 H (0.66-1.25) mg/dL Glucose 100 H (74-99) mg/dL POC Glucose (mg/dL) (75-99) mg/dL Calcium 8.0 L (8.4-10.2) mg/dL Phosphorus 6.2 H (2.5-4.5) mg/dL Total Protein 6.0 L (6.3-8.2) g/dL Albumin 3.4 L (3.5-5.0) g/dL 02/12/18 Range/Units 05:48 WBC (3.8-10.6) k/uL RBC (4.30-5.90) m/uL Hgb (13.0-17.5) gm/dL Hct (39.0-53.0) % RDW (11.5-15.5) % Neutrophils # (1.3-7.7) k/uL Lymphocytes # (1.0-4.8) k/uL APTT (22.0-30.0) sec Sodium (137-145) mmol/L Chloride (98-107) mmol/L BUN (9-20) mg/dL Creatinine (0.66-1.25) mg/dL Glucose (74-99) mg/dL POC Glucose (mg/dL) 129 H (75-99) mg/dL Calcium (8.4-10.2) mg/dL Phosphorus (2.5-4.5) mg/dL Total Protein (6.3-8.2) g/dL Albumin (3.5-5.0) g/dL Assessment and Plan Plan: Assessment: 1. Nonoliguric acute kidney injury secondary to ATN secondary to hypotension. Creatinine peaked at 4.21 as of February 11 - 4.13 today. BUN slightly improved. Initial urinalysis was completely benign. No evidence of hydronephrosis noted on renal ultrasound. Baseline creatinine is near 1. 2. Hyponatremia secondary to acute kidney injury. 3. Coronary artery disease status post CABG 2 on 01/30/2018. 4. Severe mitral regurgitation status post mitral valve repair on 01/30/2018. 5. Anemia. Iron deficiency noted. 6. Insulin-dependent diabetes mellitus. 7. Hyperphosphatemia maintained on PhosLo. 8. Atrial fibrillation. Rate controlled. Maintained on amiodarone and beta lencho. 9. Urinary retention. Narvaez catheter reinserted on February 10 due to urinary retention. Plan: Maintain normal saline at 50 mL an hour. I will repeat 80 mg of Lasix IV today. Avoid nephrotoxic agents and hypotensive episodes - blood pressures have improved. Strict I's and O's. Encouraged oral intake - encourage protein intake, will add ensure with meals. 1.2 L fluid restriction. Ferrlecit 125 mg IV daily for 3 days. Third dose today. Patient appeared slightly uremic and was scheduled to undergo dialysis yesterday. However the dialysis catheter could not be placed as he was on Eliquis. Overall he appears to be improving - urine output has improved. No evidence of gross fluid overload. Does not appear uremic. Continue to monitor.
[2018-02-12] MEDS ORDERED: FUROSEMIDE 10 MG/ML 10 ML VIAL IV STA ×2 (08:50→19:18)
[2018-02-12] MEDS: SODIUM FERRIC GLUCONAT-SUCROSE 125 MG in SODIUM CHLORIDE 0.9% 100 ML IVPB SCH (09:46)
[2018-02-12] MEDS: CEFUROXIME 250 MG TAB PO SCH (09:48)
--- NOTE | 2018-02-12 10:18 | P.PN ---
Subjective Progress Note Date: 02/12/18 HPI: Bird Maria~is a 77 y.o.~male~~being seen examined and evaluated today for consultation. This patient was admitted to the [facility] on 01/21/18-after coming in with complaints of dyspnea with no relief from his inhaler and having significant chest pressure. Patient was found to be in A. fib with RVR and was started on a heparin drip. Patient did have an echocardiogram which revealed an EF of 55% with severe mitral regurg is RVSP P was 53 mmHg. He also had a Karlee scan stress test that was also abnormal and a PATTIE with heart catheter, please see those notes for details. Currently the patient was transfered to [facility] on 01/27/18 for a CABG and mitral valve replacement. Upon examination the patient's resting up in bed on room air. He denies any shortness of breath cough or congestion at this time. He denies any smoking history however did state that he did chew tobacco on occasion. He denies any episodes of snoring however states that his sleep each night is very restless and he wakes up a minimum of 6 times per night. The patient has never had a workup for obstructive sleep apnea. Patient also states that he has had 2 previous surgeries 1 on his knee and shoulders and had no problems with anesthesiology, or waking up from surgery. Education has been provided to the patient on the extent of the surgery as well as education on mechanical ventilation intubation and extubation with possible best case scenario outcomes and worst-case scenario comes. Patient verbalizes understanding. Interval History: 01/29/18- patient is being seen examined and evaluated today on rounds. He is resting up in bed on room air. CT is feeling well. Has been ambulating in the hallway. Has been utilizing his incentive spirometer and pulling volumes of approximately 1750 arousals. He denies any cough or congestion at this time. Patient is planned for a CABG tomorrow with cardiothoracic surgery. Preop workup has been completed. He is afebrile no further complaints. All labs and reports have been reviewed. 01/30/2018: Patient seen and examined in the intensive care unit with nursing staff at bedside. The patient has returned from CABG and valve replacement. The patient is on full ventilator support. Ventilator has been adjusted and ABG reviewed. No current issues per nursing staff. 01/31-02/01/[address] АННА Smith notes 02/02/18- patient is being seen examined and evaluated today in the intensive care unit. Patient has been slightly hypotensive and his Primacor has been weaned off off, dopamine has been decreased as well per cardiothoracic services. He continues on insulin drip per protocol. Urine output has been 50- 60 miles per hour. He continues on 4 L of supplemental oxygen via nasal cannula. Does complain of some shortness of breath with exertion and activity. Denies any cough or congestion. He continues to have chest tubes in place to mediastinal and one left pleural itch chest tube did produce 50-70 miles overnight. Patient has been tolerating his clear liquid diet about 75% this morning. He did not need any BiPAP overnight. He continues to have epicardial pacer in VVI mode. He is afebrile no further complaints. 02/03/18- patient is being seen examined and evaluated today on rounds. Patient is resting up in bed on supplemental oxygen. He continues on Lasix drip insulin and dopamine. Patient has noted to have a BUN of 63, his Creatinine is increased to 3.7. Nephrology will be consulted. Chest x-ray was reviewed and does show some progressive pulmonary edema with small right-sided pleural effusion as well as cardiogenic fluid overload. Patient's blood pressure is stable. Per the nursing staff the patient may undergo his chest chest tube removal today. He is hemodynamically stable, no further complaints. Using his incentive spirometer. 02/04/18- patient is being seen examined and evaluated today on rounds. He remains in the intensive care unit. His BUN today is 77 g 3.6, nephrology was consulted yesterday and was subsequently canceled per the admitting team. Chest x-ray was reviewed and does show some improvement and CHF and improvement in the right pleural effusion. Patient was taken off Lasix drip and switched to IV push Lasix. His chest tube was removed yesterday. His dopamine is currently on hold. He is hemodynamically stable. 02/05/2018: Patient seen and examined. Patient has been transferred from the intensive care unit. His BUN today is 83 and creatinine is 3.4. The patient states he is having more pain today. He is currently sitting up in the chair. He states that he has had urinary retention and had to be straight cath this morning. He does have intermittent shortness of breath but states it is improving. 02/06/18-patient is being seen examined and evaluated today on the selective care unit. The patient was downgraded from the ICU yesterday. He is resting up in bed on room air. States he does not have any shortness of breath cough or congestion at this time. His BUN today is 87 g 3.5. He continues to have some urinary retention today and had to be straight cath again. The patient also complains of some constipation and is being put on a bowel regimen. He is afebrile no further complaints. Has been working with PT and OT. 02/07/18- patient is being seen examined and evaluated today on rounds. Patient is resting up in bed and intermittently using oxygen on and off. He still has some shortness of breath with exertion. He was able to have a bowel movement yesterday. He continues to have urinary retention and a Narvaez catheter had to be placed. Patient's BUN is 93 creatinine is 3.25. He continues with PT and OT patient will require inpatient rehab upon discharge. 02/08/2018: Patient seen and examined. Patient states he is starting to feel very weak and that he is having cramping in his hands. The patient states that he is getting very frustrated and wants to go home. He doesn't understand what is going on and why it's taking so long. He states his breathing has been okay. He did have an episode of hypotension this morning. Cardiothoracic surgery was notified. The patient's urine output has been adequate however his BUN is continually climbing to 100 and his creatinine today is 3.8. 02/09/18- patient is being seen examined and evaluated today on rounds. His breathing has been stable. He is on room air. He does have some shortness of breath with exertion and activity, denies any cough or congestion. Patient's Narvaez catheter was just discontinued this morning the patient has not urinated as of yet. It is noted today that his BUN continues to climb and is now 108 and his creatinine is now 3.8. Patient complains of achy restless legs. 02/10/18- patient seen seen examined and evaluated today on rounds. He is resting up in bed on room air. His chest x-ray was reviewed and does show some mild bibasilar atelectasis, doubt pneumonia. His sodium today is noted to be 126, BUN 109 creatinine is 4.0. WBCs 14.7. The patient states he feels short of breath and does have a congested cough without any sputum production. He has been using his incentive spirometer and pulling volumes of 1750. Nephrology is on consult and has started the patient on IV fluids. He continues to have urinary retention and needed to have another straight cath and 600 mL of urine was returned. Still complains of restless legs. He continues to work with PT and OT. Patient has discharge planning and process to inpatient rehab facility. 02/11/2018: Patient seen and examined. Patient states he doesn't feel well. He states his breathing is okay. He denies fevers and chills. He denies cough. He does not have chest pain. The patient will require hemodialysis today. Apparently he found out yesterday that his has terminal cancer. The patient did receive 1 dose of Lasix overnight due to low urine output. His BUN and creatinine continued to climb. 02/12/18- patient is being seen examined and evaluated today on rounds. He is resting up in bed on 2 L of supplemental oxygen via nasal cannula. He states he continues with shortness of breath with exertion. Patient's BUN today is 114 his creatinine is 4.13. Patient was supposed to get dialysis catheter yesterday however he was on eloquent at this needed to be held for today. However after we had a discussion with nephrology, it is decideded since the kidney functions have improved ever so minimally/slightly, we will wait one more day and hold off on the dialysis. His sodium continues to be 126. IV fluids as ordered. He is complaining of severe restless legs. Patient is getting really frustrated with his legs. Also continues to expresses concern in regards to his kidney function Objective - Vital Signs Vital signs: Vital Signs Temp 96.1 F L 02/12/18 04:00 Pulse 72 02/12/18 08:15 Resp 18 02/12/18 04:00 BP 111/59 02/12/18 04:00 Pulse Ox 100 02/12/18 04:00 Intake & Output 02/11/18 02/12/18 02/12/18 18:59 06:59 18:59 Intake Total 920 Output Total 475 575 Balance 445 -575 Weight 109 kg Intake: Intake, IV Titration 820 Amount Sodium Chloride 0.9% 1, 720 000 ml @ 60 mls/hr IV . [id number] [facility] Rx#:[id number] Sodium Ferric Gluconat- 100 Sucrose 125 mg In Sodium Chloride 0.9% 100 ml @ 100 mls/hr IVPB DAILY [facility] Rx#:[id number] Oral 100 Output: Urine 475 575 Straight 475 200 Other: Voiding Method Indwelling Catheter Indwelling Catheter # Voids 0 1 # Bowel Movements 1 ABP, PAP, CO, CI - Last Documented Arterial Blood Pressure 91/32 Pulmonary Artery Pressure 35/18 Cardiac Output 4.8 Cardiac Index 2.9 - Exam CONSTITUTIONAL: Patient is seen in no acute distress, generalized weakness HEENT: Head is normocephalic, atraumatic. Pupils are equal, conjunctiva clear. Neck is supple, trachea is midline. No JVD. RESPIRATORY: ~Lungs clear to auscultation. No wheezes, rales or rhonchi appreciated. Respirations are even and unlabored. Bases diminished bilaterally CARDIOVASCULAR: ~Heart is irregular rate and rhythm. S1 and S2 are heard. No murmur. GASTROINTESTINAL: ~Abdomen is soft, nontender, nondistended. Bowel sounds are positive. EXTREMITIES: ~No lower extremity edema is noted. Pedal pulses are palpable bilaterally. NEUROLOGICAL: ~Patient is alert and oriented 3. Speech is clear and interactive. No tremor is noted. Noted to have some significant restless legs - Labs CBC & Chem 7: 02/12/18 05:23 02/12/18 05:23 Labs: Abnormal Lab Results - Last 24 Hours (Table) 02/11/18 02/11/18 02/12/18 Range/Units 11:40 16:33 02:07 WBC (3.8-10.6) k/uL RBC (4.30-5.90) m/uL Hgb (13.0-17.5) gm/dL Hct (39.0-53.0) % RDW (11.5-15.5) % Neutrophils # (1.3-7.7) k/uL Lymphocytes # (1.0-4.8) k/uL APTT (22.0-30.0) sec Sodium (137-145) mmol/L Chloride (98-107) mmol/L BUN (9-20) mg/dL Creatinine (0.66-1.25) mg/dL Glucose (74-99) mg/dL POC Glucose (mg/dL) 71 L 157 H 123 H (75-99) mg/dL Calcium (8.4-10.2) mg/dL Phosphorus (2.5-4.5) mg/dL Total Protein (6.3-8.2) g/dL Albumin (3.5-5.0) g/dL 02/12/18 02/12/18 02/12/18 Range/Units 05:23 05:23 05:23 WBC 17.0 H (3.8-10.6) k/uL RBC 3.28 L (4.30-5.90) m/uL Hgb 9.3 L (13.0-17.5) gm/dL Hct 29.2 L (39.0-53.0) % RDW 16.0 H (11.5-15.5) % Neutrophils # 14.9 H (1.3-7.7) k/uL Lymphocytes # 0.6 L (1.0-4.8) k/uL APTT 30.2 H (22.0-30.0) sec Sodium 126 L (137-145) mmol/L Chloride 88 L (98-107) mmol/L BUN 114 H* (9-20) mg/dL Creatinine 4.13 H (0.66-1.25) mg/dL Glucose 100 H (74-99) mg/dL POC Glucose (mg/dL) (75-99) mg/dL Calcium 8.0 L (8.4-10.2) mg/dL Phosphorus 6.2 H (2.5-4.5) mg/dL Total Protein 6.0 L (6.3-8.2) g/dL Albumin 3.4 L (3.5-5.0) g/dL 02/12/18 Range/Units 05:48 WBC (3.8-10.6) k/uL RBC (4.30-5.90) m/uL Hgb (13.0-17.5) gm/dL Hct (39.0-53.0) % RDW (11.5-15.5) % Neutrophils # (1.3-7.7) k/uL Lymphocytes # (1.0-4.8) k/uL APTT (22.0-30.0) sec Sodium (137-145) mmol/L Chloride (98-107) mmol/L BUN (9-20) mg/dL Creatinine (0.66-1.25) mg/dL Glucose (74-99) mg/dL POC Glucose (mg/dL) 129 H (75-99) mg/dL Calcium (8.4-10.2) mg/dL Phosphorus (2.5-4.5) mg/dL Total Protein (6.3-8.2) g/dL Albumin (3.5-5.0) g/dL Assessment and Plan Assessment: Assessment: Chest pain Severe mitral regurgitation, s/p MVR ASCAD, s/p CABG 80-90% stenosis of his right coronary artery 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 Bedluis enriquee Adair reviewed from [facility] reviewed, suggestive of restrictive lung disease, however, without lung volumes and full PFT cannot definitively diagnose. Hemodynamics per CVTS Monitor I & O's Outpatient PFT and PSG recommended. Incentive spirometry and pulmonary hygiene. Supplemental oxygen to maintain oxygen saturations greater than 90% if needed. GI and DVT prophylaxis. Patient will also benefit from an outpatient PSG once medically stable and discharged from the hospital. Patient being evaluated for inpatient rehab, discharge planning We will continue to monitor labs/results and adjust treatment as necessary. Case is discussed with nephrology, hold on dialysis today and reassess tomorrow Requip for restless legs Jamari started continue to monitor closely I performed an examination of the patient and discussed their management with the nurse practitioner. I have reviewed the nurse practitioner's note and agree with the documented findings and plan of care.
[2018-02-12 12:01] LABS: Glucose,Whole Blood 102 mg/dL (75-99)
--- NOTE | 2018-02-12 12:38 | P.PN ---
Subjective Progress Note Date: 02/12/18 This is a 69 HO pleasant gentleman patient of Dr. Cardoso with underlying history of CAD with prior PCI stent placement, hypertension hypertensive cardiovascular disease hyperlipidemia and diabetes mellitus type 2 asthma OR arthritis COPD admitted to [facility] and was found on imaging studies secondary to his chest pain new onset atrial fibrillation with RVR and shortness of breath, cardiac cath performed 01/26/2018 showing 80% stenosis of RCA, 70% stenoses of the left circumflex involving the AV groove circumflex ostial portion, severe mitral regurgitation, dilated left ventricle ejection fraction 50-55%. He was transferred to [facility] for mitral valve placement and CABG 2 vessel critical stenosis involving left circumflex and right coronary artery. CABG most likely would be anticipated to be done January 30 He was seen at [facility] by , for pulmonary clearance, pertinent laboratories creatinine 1.01 hemoglobin 12.4 TSH 0.93 hemoglobin A1c not done,. Patient currently is on basal bolus Levemir and premeal coverage, instead of home oral medication, continue on Januvia 100 mg at bedtime, cardiology to see, Dr. Marte for consult and consult to Dr. Spicer cardiothoracic, Dr. Salas cardiology. He should maintain IV heparin 01/29: Patient is followed by Dr. Marte and Dr. VC Fry. Patient is scheduled for coronary artery bypass surgery and mitral valve replacement or repair on Friday. Blood sugars are running 156-193. Additional 2units of Novolog added premeal until surgery. Patient states his blood sugars are usually 100-130 at home. 01/30: Patient is going for surgery. 01/31 Patient is postoperative day 1 with mitral valve repair, coronary artery bypass grafting X2. Patient examined bed side. Appears tired. Complains of shortness of breath intermittently. Currently on 2 L of oxygen. Blood pressure continues to drop to systolic in low 80. Initiated on norepinephrine added low -dose. Chest x-ray suggested worsening vascular congestion and pleural effusion. Received 1 dose 80 mg IV Lasix today [place]Man[place] catheter removed today. Patient is extubated since this morning. 02/01 Patient has increased cough and congestion, on 6 L nasal cannula. CXR concerning for cngestion and pleural effusion. on lasix drip. Lantus increased to 15 units bedtime to decrease insulin requirement. Continue trodjenta 5 mg po daily while in hospital. COntinue insulin drip, plan to switich to sliding scale if not much requirement on drip. Continue metoprolol 25 mg op BID 02/02: Patient has been evaluated by Dr. Diego and may be a candidate for inpatient. Primacor has been discontinued. Patient is currently on dopamine, insulin drip and Lasix drip. Epicardial wires and chest tube out today. Blood sugars are running between 101 and 174. White count has jumped to 19.7 and renal function is worsening with BUN 49 creatinine 3.06. The patient states he did eat his breakfast this morning. 02/03: Renal function continues to worsen with BUN 63 and creatinine 3.70 and phosphorus level continues to rise currently at 6.8. PhosLo will be added. Parathyroid hormone intact will be ordered. Consult with nephrology was added by pulmonary medicine but this was subsequently canceled. Regarding his blood sugars, insulin drip will be discontinued and Levemir will be increased to 20 units at bedtime. Patient is also on dopamine and insulin drips. Lasix drip was discontinued and patient switched to IV Lasix. tle. 02/04: 02/04: Patient is now off dopamine. Insulins will be adjusted to NovoLog 5 units with meals and Levemir 12 units twice daily and insulin drip will be discontinued. Ensure will be started as patient is eating very little. Repeat BUN 77 creatinine 3.60. Parathyroid intact is 114 and patient will need follow- up with nephrology as an outpatient. 02/05: Blood sugars are elevated and his morning 70/30 insulin will be increased to 23 units and evening to 20 units. Scheduled NovoLog will be increased to 8 units with meals. Patient ate about 75% of his dinner last night and 25% of his breakfast. He is taking some Ensure. Patient to be transferred to select care today. 02/06: Patient is now seen on the selective care unit. Repeat chest x-ray shows persistent mild pulmonary vascular congestion and trace right pleural effusion. Left pleural effusion has resolved. No pneumothorax. Blood sugars are improved on current regime running between 111 and 145. BUN is 87 and creatinine 3.5. Hemoglobin is 9.6. Patient is working with PT and OT and is easily fatigued. At this point still anticipating discharge to [facility] for inpatient rehab once patient is cleared by cardiothoracic surgery. 02/09: Patient's kidney function slightly red worse we'll consult nephrology, he is more medically stable and will need probably to go to rehab from here for a period of time is still debilitated. Had more hematoma and bruise on the right leg area side of his graft for his bypass. His mobility still significantly decreased currently. We will continue PTOT and plan possibly if his stable otherwise including kidney function and cardiovascular might be discharged in the next 2 days to rehab at [facility]. 02/10: Renal function has continued to worsen with a creatinine of 4. He has been started on normal saline at 50 mL/h and diuretics are on hold. Narvaez catheter to be reinserted, 1.2 L fluid restriction and patient have repeat labs done this afternoon. Patient has been started on Ferrlecit IV 3 days. Renal ultrasound ordered. Patient is anticipating inpatient rehab. 02/11: Patient did sleep better last night for the first time. He still feels exhausted. Patient has not had bowel movement since last week. Senokot S changed to twice daily, MOM and prune juice to be given, fleets if necessary. Patient continues to suffer from worsening renal failure and is in need of dialysis. BUN 115 and creatinine 4.21, sodium 126 and hgb 9.1. Vascular consult has been placed by nephrology. Patient found out yesterday that his has been diagnosed with stage 4 cancer. He continues to complain of itchiness. 02/12: Patient is continued on IV fluids of normal saline at 50 mL per hour and repeat dose of IV Lasix, fluid restriction of 1200 mL. Final dose of Ferrlecit to be given today.. Patient could not have dialysis catheter placed due to eliquis. White count is at 17, hemoglobin 9.3, BUN 114 and creatinine 4.13. Sodium is 126 with chloride of 88. Blood sugars up and running between 90 and 129. Objective - Vital Signs Vital signs: Vital Signs Temp 97.7 F 02/12/18 08:00 Pulse 72 02/12/18 08:15 Resp 18 02/12/18 08:00 BP 128/65 02/12/18 08:00 Pulse Ox 100 02/12/18 08:00 Intake & Output 02/11/18 02/12/18 02/12/18 18:59 06:59 18:59 Intake Total 920 Output Total 475 575 375 Balance 445 575 -375 Weight 109 kg Intake: Intake, IV Titration 820 Amount Sodium Chloride 0.9% 1, 720 000 ml @ 60 mls/hr IV . [id number] [facility] Rx#:[id number] Sodium Ferric Gluconat- 100 Sucrose 125 mg In Sodium Chloride 0.9% 100 ml @ 100 mls/hr IVPB DAILY [facility] Rx#:[id number] Oral 100 Output: Urine 475 575 375 Straight 475 200 375 Other: Voiding Method Indwelling Catheter Indwelling Catheter Indwelling Catheter # Voids 0 1 # Bowel Movements 1 ABP, PAP, CO, CI - Last Documented Arterial Blood Pressure 91/32 Pulmonary Artery Pressure 35/18 Cardiac Output 4.8 Cardiac Index 2.9 - Exam General appearance: Present: cooperative, disheveled, no acute distress, obese. Absent: average body habitus, mild distress, morbidly obese, severe distress, thin - EENT Eyes: Present: normal appearance. Absent: abnormal pupil, anicteric sclerae, disc margins sharp, edentulous, EOMI, PERRLA, fundus normal, photophobia, dentition normal, poor dentition, ptosis, scleral icterus ENT: Present: hard of hearing, pharyngeal erythema. Absent: hearing grossly normal, NA/AT, normal oropharynx, other, thrush, tonsillar exudates, tonsillar swelling Ears: bilateral: normal - Neck Neck: Present: normal ROM. Absent: lymphadenopathy, other, rigidity, stridor, thyromegaly Carotids: bilateral: upstroke normal Thyroid: bilateral: normal size - Respiratory Respiratory: left: dullness, rales, bilateral: diminished, wheezing, prolonged expiration - Cardiovascular Rhythm: regular Heart sounds: normal: S1, S2 Abnormal Heart Sounds: Present: systolic murmur, S3 Gallop - Gastrointestinal General gastrointestinal: Present: distended, normal bowel sounds, soft. Absent : absent bowel sounds, decreased bowel sounds, hepatomegaly, hyperactive bowel sounds, organomegaly, rigid, scaphoid, splenomegaly, tenderness, umbilical hernia, ventral hernia - Integumentary Integumentary: Present: cellulitis, normal, pale, rash. Absent: calor, cyanotic , decreased turgor, flushed, jaundiced, normal turgor, ulcer - Neurologic Neurologic: Present: CNII-XII intact - Musculoskeletal Musculoskeletal: Present: gait normal, generalized weakness, strength equal bilaterally. Absent: right sided weakness, left sided weakness - Psychiatric Psychiatric: Present: A&O x's 3, appropriate affect. Absent: intact judgment & insight - Labs CBC & Chem 7: 02/12/18 05:23 02/12/18 05:23 Labs: Abnormal Lab Results - Last 24 Hours (Table) 02/11/18 02/11/18 02/12/18 Range/Units 11:40 16:33 02:07 WBC (3.8-10.6) k/uL RBC (4.30-5.90) m/uL Hgb (13.0-17.5) gm/dL Hct (39.0-53.0) % RDW (11.5-15.5) % Neutrophils # (1.3-7.7) k/uL Lymphocytes # (1.0-4.8) k/uL APTT (22.0-30.0) sec Sodium (137-145) mmol/L Chloride (98-107) mmol/L BUN (9-20) mg/dL Creatinine (0.66-1.25) mg/dL Glucose (74-99) mg/dL POC Glucose (mg/dL) 71 L 157 H 123 H (75-99) mg/dL Calcium (8.4-10.2) mg/dL Phosphorus (2.5-4.5) mg/dL Total Protein (6.3-8.2) g/dL Albumin (3.5-5.0) g/dL 02/12/18 02/12/18 02/12/18 Range/Units 05: 05:23 05:23 WBC 17.0 H (3.8-10.6) k/uL RBC 3.28 L (4.30-5.90) m/uL Hgb 9.3 L (13.0-17.5) gm/dL Hct 29.2 L (39.0-53.0) % RDW 16.0 H (11.5-15.5) % Neutrophils # 14.9 H (1.3-7.7) k/uL Lymphocytes # 0.6 L (1.0-4.8) k/uL APTT 30.2 H (22.0-30.0) sec Sodium 126 L (137-145) mmol/L Chloride 88 L (98-107) mmol/L BUN 114 H* (9-20) mg/dL Creatinine 4.13 H (0.66-1.25) mg/dL Glucose 100 H (74-99) mg/dL POC Glucose (mg/dL) (75-99) mg/dL Calcium 8.0 L (8.4-10.2) mg/dL Phosphorus 6.2 H (2.5-4.5) mg/dL Total Protein 6.0 L (6.3-8.2) g/dL Albumin 3.4 L (3.5-5.0) g/dL 02/12/18 Range/Units 05:48 WBC (3.8-10.6) k/uL RBC (4.30-5.90) m/uL Hgb (13.0-17.5) gm/dL Hct (39.0-53.0) % RDW (11.5-15.5) % Neutrophils # (1.3-7.7) k/uL Lymphocytes # (1.0-4.8) k/uL APTT (22.0-30.0) sec Sodium (137-145) mmol/L Chloride (98-107) mmol/L BUN (9-20) mg/dL Creatinine (0.66-1.25) mg/dL Glucose (74-99) mg/dL POC Glucose (mg/dL) 129 H (75-99) mg/dL Calcium (8.4-10.2) mg/dL Phosphorus (2.5-4.5) mg/dL Total Protein (6.3-8.2) g/dL Albumin (3.5-5.0) g/dL Assessment and Plan Plan: 1. Severe mitral regurgitation and CAD with 2 vessel critical stenosis s/p CABG , and mitral valve repair, Dr. Spicer from cardiovascular surgery. Cardiology is following. Dr. Vides is covering for intensive care management. extubated. Continue eliquis, aspirin 81 mg daily, Lipitor 40 mg daily. Continue amiodarone. 2. Diabetes mellitus type 2. Continue Levemir 23 units in the morning, 20 units in the evening, NovoLog 8 units with meals and scale. 3. New onset atrial fibrillation, paroxysmal, currently on oral amiodarone and metoprolol tartrate 12.5 mg twice daily 4. Acute kidney injury with CKD stage II with baseline creatinine 1.01, continue to monitor. Nephrology consult is appreciated. Patient has been started on normal saline at 50 mL per hour, Lasix dose daily, avoid nephrotoxic agents and hypotensive episodes. Narvaez catheter in place. 1.2 L fluid restriction. Vascular consult for dialysis access. 5. Hyperphosphatemia secondary to acute kidney injury. PhosLo added. Parathyroid hormone intact is elevated. 6. CAD with previous PCI and stent placement with recent cardiac cath [address] Reynolds found to have 60-70% stenosis involving left circumflex AV groove circumflex ostial portion, and RCA 80% stenosis mid RCA, EF 50-55% left ventricle end-diastolic pressure 14 severe mitral regurgitation. 7. BPH without urinary tract symptomatology. Continue Flomax or 0.8 mg at bedtime daily. Monitor for urinary retention. 8. Mild intermittent asthma without any current exacerbation with COPD and when necessary nebulizer, incentive spirometry, 9. Hypertensive cardiovascular disease. Patient on Lopressor. 10. History of skin cancer 11. Osteoarthritis, generalized. 12. Hyperlipidemia on Lipitor 40 mg daily 13. Anemia secondary to renal failure. Patient started on Ferrlecit 3 days GI prophylaxis. Protonix DVT prophylaxis Discharge plan: Inpatient rehab Impression and plan of care have been directed as dictated by the signing physician. Zoya Lenz nurse practitioner acting as scribe for signing physician.
--- NOTE | 2018-02-12 12:41 | P.PN ---
Subjective Progress Note Date: 02/12/18 This is 77-year-old gentleman transferred here from [facility], patient has two-vessel coronary artery disease and severe mitral regurg. He is scheduled to undergo surgery tomorrow. Patient was seen and examined this morning, doing well, denies any chest pain in his breathing has been stable. Blood pressure 115/70 with a heart rate in the 90s, 95% on room air. 02/09/2018 Patient was seen and examined this morning, status post mitral valve repair and coronary artery bypass grafting surgery 2. Patient has ambulated in the room to the doorway this morning, complaining of restless legs this morning. Breathing overall is stable. Blood pressure 100/60 with a heart rate in the 80s , 95% on room air. White blood cell count 12.2, hemoglobin 9.3, platelet count 308. Sodium 128, potassium 4.4, BUN 108, creatinine 3.8. 02/10/2018 Patient seen and examined this morning, mildly agitated, renal function continues to worsen with a creatinine today of 4. He is receiving normal saline at 50 mL per hour. Ambulating in his room only. Blood pressure 96/50, heart rate in the 80s. 02/11/2018 Patient seen and examined this morning, was given a dose of IV Lasix and diuresed well. Hemodynamically stable. Sodium 126, potassium 4.7, BUN 115, creatinine 4.2. 02/12/2018 Patient seen and examined this morning, sitting up in the chair at bedside. He is scheduled to undergo dialysis catheter placement. BUN 114 and creatinine 4.1. White blood cell count 17 and hemoglobin 9.3. Objective - Vital Signs Vital signs: Vital Signs Temp 97.7 F 02/12/18 08:00 Pulse 72 02/12/18 11:42 Resp 18 02/12/18 08:00 BP 128/65 02/12/18 08:00 Pulse Ox 100 02/12/18 08:00 Intake & Output 02/11/18 02/12/18 02/12/18 18:59 06:59 18:59 Intake Total 920 Output Total 492 575 375 Balance 768 -981 -348 Weight 109 kg Intake: Intake, IV Titration 820 Amount Sodium Chloride 0.9% 1, 720 000 ml @ 60 mls/hr IV . [id number] [facility] Rx#:[id number] Sodium Ferric Gluconat- 100 Sucrose 125 mg In Sodium Chloride 0.9% 100 ml @ 100 mls/hr IVPB DAILY [facility] Rx#:[id number] Oral 100 Output: Urine 475 575 375 Straight 475 200 375 Other: Voiding Method Indwelling Catheter Indwelling Catheter Indwelling Catheter # Voids 0 1 # Bowel Movements 1 ABP, PAP, CO, CI - Last Documented Arterial Blood Pressure 91/32 Pulmonary Artery Pressure 35/18 Cardiac Output 4.8 Cardiac Index 2.9 - Exam PHYSICAL EXAMINATION: HEENT: Head is atraumatic, normocephalic. Pupils equal, round. Neck is supple. There is no elevated jugular venous pressure. HEART EXAMINATION: Heart S1 S2 irregularly irregular . CHEST EXAMINATION: Lungs are clear with diminished air entry to bilateral bases. Sternum is stable. Heart had are in place. ABDOMEN: Soft, nontender. Bowel sounds are heard. No organomegaly noted. EXTREMITIES: 2+ peripheral pulses with no evidence of peripheral edema and no calf tenderness noted. Antiembolism stockings and SCDs in place. NEUROLOGIC patient is awake, alert and oriented -3. . - Labs CBC & Chem 7: 02/12/18 05:23 02/12/18 05:23 Labs: Abnormal Lab Results - Last 24 Hours (Table) 02/11/18 02/12/18 02/12/18 Range/Units 16:33 02:07 05:23 WBC 17.0 H (3.8-10.6) k/uL RBC 3.28 L (4.30-5.90) m/uL Hgb 9.3 L (13.0-17.5) gm/dL Hct 29.2 L (39.0-53.0) % RDW 16.0 H (11.5-15.5) % Neutrophils # 14.9 H (1.3-7.7) k/uL Lymphocytes # 0.6 L (1.0-4.8) k/uL APTT (22.0-30.0) sec Sodium (137-145) mmol/L Chloride (98-107) mmol/L BUN (9-20) mg/dL Creatinine (0.66-1.25) mg/dL Glucose (74-99) mg/dL POC Glucose (mg/dL) 157 H 123 H (75-99) mg/dL Calcium (8.4-10.2) mg/dL Phosphorus (2.5-4.5) mg/dL Total Protein (6.3-8.2) g/dL Albumin (3.5-5.0) g/dL 02/12/18 02/12/18 02/12/18 Range/Units 05:23 05:23 05:48 WBC (3.8-10.6) k/uL RBC (4.30-5.90) m/uL Hgb (13.0-17.5) gm/dL Hct (39.0-53.0) % RDW (11.5-15.5) % Neutrophils # (1.3-7.7) k/uL Lymphocytes # (1.0-4.8) k/uL APTT 30.2 H (22.0-30.0) sec Sodium 126 L (137-145) mmol/L Chloride 88 L (98-107) mmol/L BUN 114 H* (9-20) mg/dL Creatinine 4.13 H (0.66-1.25) mg/dL Glucose 100 H (74-99) mg/dL POC Glucose (mg/dL) 129 H (75-99) mg/dL Calcium 8.0 L (8.4-10.2) mg/dL Phosphorus 6.2 H (2.5-4.5) mg/dL Total Protein 6.0 L (6.3-8.2) g/dL Albumin 3.4 L (3.5-5.0) g/dL 02/12/18 Range/Units 11:34 WBC (3.8-10.6) k/uL RBC (4.30-5.90) m/uL Hgb (13.0-17.5) gm/dL Hct (39.0-53.0) % RDW (11.5-15.5) % Neutrophils # (1.3-7.7) k/uL Lymphocytes # (1.0-4.8) k/uL APTT (22.0-30.0) sec Sodium (137-145) mmol/L Chloride (98-107) mmol/L BUN (9-20) mg/dL Creatinine (0.66-1.25) mg/dL Glucose (74-99) mg/dL POC Glucose (mg/dL) 102 H (75-99) mg/dL Calcium (8.4-10.2) mg/dL Phosphorus (2.5-4.5) mg/dL Total Protein (6.3-8.2) g/dL Albumin (3.5-5.0) g/dL Assessment and Plan Plan: Assessment and plan #1 coronary artery disease and severe mitral regurgitation, status post mitral valve repair and coronary artery bypass grafting surgery times 2. #2 hyperlipidemia #3 diabetes #4 hypertension Plan We will continue the current medications the patient is on, Patient is scheduled to undergo insertion of a dialysis catheter today. DNP note has been reviewed, I agree with a documented findings and plan of care. Patient was seen and examined.
[2018-02-12 16:48] LABS: Glucose,Whole Blood 141 mg/dL (75-99)
[2018-02-12 17:48] LABS: Calcium 7.9 mg/dL (8.4-10.2); Potassium 4.6 mmol/L (3.5-5.1)
[2018-02-12] MEDS: APIXABAN 2.5 MG TABLET PO SCH (20:17)
[2018-02-12] MEDS: TAMSULOSIN 0.4 MG CAP.ER.24H PO SCH (20:19)
[2018-02-12] MEDS: LINAGLIPTIN 5 MG TABLET PO SCH (20:20)
[2018-02-12 20:49] LABS: Glucose,Whole Blood 162 mg/dL (75-99)
[2018-02-13] MEDS: HYDROcodone/APAP 7.5-325MG 1 EACH TAB PO PRN ×2 (00:09→08:51)
[2018-02-13 02:08] LABS: Glucose,Whole Blood 186 mg/dL (75-99)
[2018-02-13 04:14] VITALS: RESP 16
[2018-02-13 06:10] LABS: Glucose,Whole Blood 175 mg/dL (75-99)
[2018-02-13 06:21] LABS: Anisocytosis Slight; Basophils % (A) 0 %; Eosinophils # (A) 0.3 k/uL (0-0.7); Eosinophils % (A) 2 %; HCT 29.9 % (39.0-53.0); HGB 9.6 gm/dL (13.0-17.5); Hypochromasia Slight; Lymphocytes # (A) 0.4 k/uL (1.0-4.8); Lymphocytes % (A) 3 %; MCH 28.7 pg (25.0-35.0); MCHC 32.2 g/dL (31.0-37.0); MCV 89.1 fL (80.0-100.0); Monocytes # (A) 0.9 k/uL (0-1.0); Monocytes % (A) 7 %; Neutrophils # (A) 12.2 k/uL (1.3-7.7); Neutrophils % (A) 86 %; Platelet Count 331 k/uL (150-450); RBC 3.35 m/uL (4.30-5.90); RDW 16.4 % (11.5-15.5); WBC 14.1 k/uL (3.8-10.6)
[2018-02-13 06:27] LABS: Albumin 3.4 g/dL (3.5-5.0); Calcium 7.9 mg/dL (8.4-10.2); Phosphorus 5.9 mg/dL (2.5-4.5); Potassium 4.8 mmol/L (3.5-5.1); Total Bilirubin 1.1 mg/dL (0.2-1.3)
[2018-02-13] MEDS: PANTOPRAZOLE 40 MG TABLET PO SCH (06:55)
[2018-02-13] MEDS: CALCIUM ACETATE 667 MG CAP PO SCH (06:55)
[2018-02-13] MEDS: INSULIN ASPART 100 UNIT/ML 1 ML 10 ML VIAL SQ SCH ×2 (07:02)
--- NOTE | 2018-02-13 07:26 | P.PN ---
Subjective Progress Note Date: 02/13/18 Principal diagnosis: Severe mitral regurgitation. 2 vessel coronary artery disease. New onset preoperative paroxysmal atrial fibrillation. 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 POD #14 urgent mitral valve repair with a #30 mm Carbo[employer] annular flex band. Clip ligation of the left atrial appendage with a #35 mm AtriClip. Coronary bypass grafting 2 with reverse saphenous vein graft off the aorta to the circumflex artery and the right coronary artery. Endoscopic harvesting of the right greater saphenous vein. Complete left-sided maze procedure using radiofrequency ablation as well as cryoablation. Intraoperative transesophageal echocardiogram. Postoperative hypotension and low urine output requiring combination of IV pressors, lasix, and inotropic support secondary to low cardiac output, intravascular hypovolemia, an unexpected but potential outcome of surgery. Postoperative nonoliguric acute kidney injury secondary to ATN, an unexpected but potential outcome of surgery secondary to hemodynamic instability. Postoperative urinary retention, an unexpected but potential outcome with the patient having a previous history of urinary retention after surgery. The patient is currently sitting up in a chair in no acute distress. Complains of mild sternal pain, controlled on current medications. States shortness of breath is better. Denies nausea this morning. Patient is refusing to ambulate in the hallway, will only ambulate in the room. No dialysis catheter placed yesterday, dialysis plans are on hold per nephrology as patient's creatinine is improving. Objective - Vital Signs Vital signs: Vital Signs Temp 97.0 F L 02/13/18 04:00 Pulse 76 02/13/18 04:00 Resp 16 02/13/18 04:00 BP 101/56 02/13/18 04:00 Pulse Ox 100 02/13/18 04:00 Intake & Output 02/12/18 02/13/18 02/13/18 18:59 06:59 18:59 Intake Total 360 500 Output Total 1100 600 Balance -740 -100 Weight 113 kg Intake: Intake, IV Titration 400 Amount Sodium Chloride 0.9% 1, 400 000 ml @ 50 mls/hr IV . Q20H [facility] Rx#:[id number] Oral 360 100 Output: Urine 1100 600 Straight 725 Other: Voiding Method Indwelling Catheter Indwelling Catheter # Voids 1 ABP, PAP, CO, CI - Last Documented Arterial Blood Pressure 91/32 Pulmonary Artery Pressure 35/18 Cardiac Output 4.8 Cardiac Index 2.9 - Constitutional General appearance: Present: cooperative, no acute distress - Respiratory Details: Lungs sounds diminished bilaterally. Respirations even, nonlabored. Currently on room air with oxygen saturation 97%. Able to achieve 1250 mL on his incentive spirometry this morning. Productive cough with yellow sputum.. - Cardiovascular Details: S1, S2 present. Irregular rate and rhythm, controlled atrial fibrillation on telemetry. Sternum stable. Palpable peripheral pulses bilaterally. No edema present. No calf pain or tenderness noted. Antiembolism stockings, SCDs present. Heart hugger in place with patient demonstrating appropriate use. - Gastrointestinal Gastrointestinal Comment(s): Abdomen soft, round, nontender, nondistended. Active bowel sounds present 4 quadrants. Tolerating diet. Positive bowel movement. - Genitourinary Genitourinary Comment(s): Ness present draining clear, yellow urine. Output 350 mL overnight, 1700 mL the last 24 hours. - Integumentary Integumentary Comment(s): Skin is warm and dry with evidence of good perfusion. Anterior chest incision well approximated and covered with dry intact dressing. Right lower extremity EVH site well approximated, area of firmness present in the right inner thigh, common from tunnel created when harvesting vein. - Neurologic Neurologic: Present: CNII-XII intact - Musculoskeletal Musculoskeletal: Present: gait normal, generalized weakness, strength equal bilaterally - Psychiatric Psychiatric: Present: A&O x's 3, appropriate affect, intact judgment & insight - Allied health notes Allied health notes reviewed: nursing - Labs CBC & Chem 7: 02/13/18 06:04 02/13/18 06:04 Labs: Abnormal Lab Results - Last 24 Hours (Table) 02/12/18 02/12/18 02/12/18 Range/Units 11:34 16:33 17:19 WBC (3.8-10.6) k/uL RBC (4.30-5.90) m/uL Hgb (13.0-17.5) gm/dL Hct (39.0-53.0) % RDW (11.5-15.5) % Neutrophils # (1.3-7.7) k/uL Lymphocytes # (1.0-4.8) k/uL Sodium 125 L (137-145) mmol/L Chloride 88 L (98-107) mmol/L BUN 116 H* (9-20) mg/dL Creatinine 3.87 H (0.66-1.25) mg/dL Glucose 124 H (74-99) mg/dL POC Glucose (mg/dL) 102 H 141 H (75-99) mg/dL Calcium 7.9 L (8.4-10.2) mg/dL Phosphorus (2.5-4.5) mg/dL Total Protein (6.3-8.2) g/dL Albumin (3.5-5.0) g/dL 02/12/18 02/13/18 02/13/18 Range/Units 20:48 02:07 06:04 WBC 14.1 H (3.8-10.6) k/uL RBC 3.35 L (4.30-5.90) m/uL Hgb 9.6 L (13.0-17.5) gm/dL Hct 29.9 L (39.0-53.0) % RDW 16.4 H (11.5-15.5) % Neutrophils # 12.2 H (1.3-7.7) k/uL Lymphocytes # 0.4 L (1.0-4.8) k/uL Sodium (137-145) mmol/L Chloride (98-107) mmol/L BUN (9-20) mg/dL Creatinine (0.66-1.25) mg/dL Glucose (74-99) mg/dL POC Glucose (mg/dL) 162 H 186 H (75-99) mg/dL Calcium (8.4-10.2) mg/dL Phosphorus (2.5-4.5) mg/dL Total Protein (6.3-8.2) g/dL Albumin (3.5-5.0) g/dL 02/13/18 02/13/18 Range/Units 06:04 06:09 WBC (3.8-10.6) k/uL RBC (4.30-5.90) m/uL Hgb (13.0-17.5) gm/dL Hct (39.0-53.0) % RDW (11.5-15.5) % Neutrophils # (1.3-7.7) k/uL Lymphocytes # (1.0-4.8) k/uL Sodium 128 L (137-145) mmol/L Chloride 91 L (98-107) mmol/L BUN 115 H* (9-20) mg/dL Creatinine 3.68 H (0.66-1.25) mg/dL Glucose 150 H (74-99) mg/dL POC Glucose (mg/dL) 175 H (75-99) mg/dL Calcium 7.9 L (8.4-10.2) mg/dL Phosphorus 5.9 H (2.5-4.5) mg/dL Total Protein 6.0 L (6.3-8.2) g/dL Albumin 3.4 L (3.5-5.0) g/dL - Imaging and Cardiology Chest x-ray: image reviewed Assessment and Plan (1) Paroxysmal atrial fibrillation Current Visit: Yes Status: Acute Code(s): I48.0 - PAROXYSMAL ATRIAL FIBRILLATION SNOMED Code(s): 174628558 (2) Acute kidney injury Current Visit: Yes Status: Acute Code(s): N17.9 - ACUTE KIDNEY FAILURE, UNSPECIFIED SNOMED Code(s): 18069756 (3) History of skin cancer Current Visit: No Status: Resolved Code(s): Z85.828 - PERSONAL HISTORY OF OTHER MALIGNANT NEOPLASM OF SKIN SNOMED Code(s): 749084611 (4) Asthma Current Visit: Yes Status: Acute Code(s): J45.909 - UNSPECIFIED ASTHMA, UNCOMPLICATED SNOMED Code(s): 185545331 (5) COPD (chronic obstructive pulmonary disease) Current Visit: Yes Status: Chronic Code(s): J44.9 - CHRONIC OBSTRUCTIVE PULMONARY DISEASE, UNSPECIFIED SNOMED Code(s): 85565044 (6) Diabetes mellitus type 2 in obese Current Visit: Yes Status: Chronic Code(s): E11.69 - TYPE 2 DIABETES MELLITUS WITH OTHER SPECIFIED COMPLICATION; E66.9 - OBESITY, UNSPECIFIED SNOMED Code(s): 15344692 (7) Enlarged prostate Current Visit: Yes Status: Chronic Code(s): N40.0 - BENIGN PROSTATIC HYPERPLASIA WITHOUT LOWER URINRY TRACT SYMP SNOMED Code(s): 327913130 (8) Hyperlipidemia Current Visit: Yes Status: Chronic Code(s): E78.5 - HYPERLIPIDEMIA, UNSPECIFIED SNOMED Code(s): 57442586 (9) Hypertension Current Visit: Yes Status: Chronic Code(s): I10 - ESSENTIAL (PRIMARY) HYPERTENSION SNOMED Code(s): 80006863 (10) Personal history of nicotine dependence Current Visit: No Status: Resolved Code(s): Z87.891 - PERSONAL HISTORY OF NICOTINE DEPENDENCE SNOMED Code(s): 038439668 (11) Presence of stent in coronary artery in patient with coronary artery disease Current Visit: Yes Status: Chronic Code(s): I25.10 - ATHSCL HEART DISEASE OF [place] CORONARY ARTERY W/O ANG PCTRS; Z95.5 - PRESENCE OF CORONARY ANGIOPLASTY IMPLANT AND GRAFT SNOMED Code(s): 592832298 (12) Severe mitral regurgitation by prior echocardiogram Current Visit: Yes Status: Chronic Code(s): I34.0 - NONRHEUMATIC MITRAL ( VALVE) INSUFFICIENCY SNOMED Code(s): 58175173 (13) Left carotid stenosis Current Visit: Yes Status: Chronic Code(s): I65.22 - OCCLUSION AND STENOSIS OF LEFT CAROTID ARTERY SNOMED Code(s): 495002649902039 Plan: 1. Continue low dose aspirin, statin, Lopressor. FAUSTINO/ARB contraindicated secondary to hypotension, CARLOS. 2. Continue amiodarone for A. fib prophylaxis. Will decrease dose to 200 mg daily on February 14. Continue Eliquis for anticoagulation. 3. Nephrology consulted per primary care service. No nephrotoxic agents. Plans for dialysis on hold secondary to improve kidney function. Lasix 60 mg by mouth twice daily per nephrology. 4. Urinalysis culture negative. Patient on Ceftin per primary care service. 5. Encourage incentive spirometry use 10 times every hour while awake. Encourage patient to cough. 6. Encourage continued smoking cessation. 7. Increase activity, ambulate as tolerated. PT/OT/cardiac rehab following. 8. Will monitor daily labs and chest x-rays. 9. Continue Flomax. Leave ness in for now, patient may have a trial of voiding once he is at rehab and acute issues have resolved. 10. Diabetic management per primary care service. 11. GI/DVT prophylaxis. 12. Discharge planning in progress. Patient will need rehab at discharge. Dr. Diego was consulted by Dr. Mcnamara and is following. Insurance approval obtained for possible transfer to inpatient rehab. Patient will need to have consults for cardiology, nephrology, and urology at [facility]. Patient to go to inpatient rehab today. 13. More recommendations as patient progresses. Time with Patient: Greater than 30
--- NOTE | 2018-02-13 07:35 | P.PN ---
Subjective Patient is seen in follow-up for acute kidney injury. His baseline creatinine is 1 and is peaked at 4.21 on February 11 - 3.68 today. Denies chest pain or shortness of breath. He is status post CABG 2 and mitral valve repair done 07/2018. He received 80 mg IV 2 doses yesterday. Urine output 1.7 L in the last 24 hours. Currently having breakfast. Overall feels better today. Sodium level is up to 128. Vital signs are stable. General: The patient appeared well nourished and normally developed. HEENT: Head exam is unremarkable. Neck is without jugular venous distension. LUNGS: Lungs are clear to auscultation and percussion. Breath sounds decreased. HEART: Rate and Rhythm are regular. First and second heart sounds normal. No murmurs, rubs or gallops. ABDOMEN: Abdominal exam reveals normal bowel sounds. Non-tender and non- distended. No evidence of peritonitis. EXTREMITITES: Trace edema. Objective - Vital Signs Vital signs: Vital Signs Temp 97.0 F L 02/13/18 04:00 Pulse 76 02/13/18 04:00 Resp 16 02/13/18 04:00 BP 101/56 02/13/18 04:00 Pulse Ox 100 02/13/18 04:00 Intake & Output 02/12/18 02/13/18 02/13/18 18:59 06:59 18:59 Intake Total 360 500 Output Total 1100 600 Balance -740 -100 Weight 113 kg Intake: Intake, IV Titration 400 Amount Sodium Chloride 0.9% 1, 400 000 ml @ 50 mls/hr IV . Q20H [facility] Rx#:[id number] Oral 360 100 Output: Urine 1100 600 Straight 725 Other: Voiding Method Indwelling Catheter Indwelling Catheter # Voids 1 ABP, PAP, CO, CI - Last Documented Arterial Blood Pressure 91/32 Pulmonary Artery Pressure 35/18 Cardiac Output 4.8 Cardiac Index 2.9 - Labs CBC & Chem 7: 02/13/18 06:04 02/13/18 06:04 Labs: Abnormal Lab Results - Last 24 Hours (Table) 02/12/18 02/12/18 02/12/18 Range/Units 11:34 16:33 17:19 WBC (3.8-10.6) k/uL RBC (4.30-5.90) m/uL Hgb (13.0-17.5) gm/dL Hct (39.0-53.0) % RDW (11.5-15.5) % Neutrophils # (1.3-7.7) k/uL Lymphocytes # (1.0-4.8) k/uL Sodium 125 L (137-145) mmol/L Chloride 88 L (98-107) mmol/L BUN 116 H* (9-20) mg/dL Creatinine 3.87 H (0.66-1.25) mg/dL Glucose 124 H (74-99) mg/dL POC Glucose (mg/dL) 102 H 141 H (75-99) mg/dL Calcium 7.9 L (8.4-10.2) mg/dL Phosphorus (2.5-4.5) mg/dL Total Protein (6.3-8.2) g/dL Albumin (3.5-5.0) g/dL 02/12/18 02/13/18 02/13/18 Range/Units 20:48 02:07 06:04 WBC 14.1 H (3.8-10.6) k/uL RBC 3.35 L (4.30-5.90) m/uL Hgb 9.6 L (13.0-17.5) gm/dL Hct 29.9 L (39.0-53.0) % RDW 16.4 H (11.5-15.5) % Neutrophils # 12.2 H (1.3-7.7) k/uL Lymphocytes # 0.4 L (1.0-4.8) k/uL Sodium (137-145) mmol/L Chloride (98-107) mmol/L BUN (9-20) mg/dL Creatinine (0.66-1.25) mg/dL Glucose (74-99) mg/dL POC Glucose (mg/dL) 162 H 186 H (75-99) mg/dL Calcium (8.4-10.2) mg/dL Phosphorus (2.5-4.5) mg/dL Total Protein (6.3-8.2) g/dL Albumin (3.5-5.0) g/dL 02/13/18 02/13/18 Range/Units 06:04 06:09 WBC (3.8-10.6) k/uL RBC (4.30-5.90) m/uL Hgb (13.0-17.5) gm/dL Hct (39.0-53.0) % RDW (11.5-15.5) % Neutrophils # (1.3-7.7) k/uL Lymphocytes # (1.0-4.8) k/uL Sodium 128 L (137-145) mmol/L Chloride 91 L (98-107) mmol/L BUN 115 H* (9-20) mg/dL Creatinine 3.68 H (0.66-1.25) mg/dL Glucose 150 H (74-99) mg/dL POC Glucose (mg/dL) 175 H (75-99) mg/dL Calcium 7.9 L (8.4-10.2) mg/dL Phosphorus 5.9 H (2.5-4.5) mg/dL Total Protein 6.0 L (6.3-8.2) g/dL Albumin 3.4 L (3.5-5.0) g/dL Assessment and Plan Plan: Assessment: 1. Nonoliguric acute kidney injury secondary to ATN secondary to hypotension. Creatinine peaked at 4.21 as of February 11 - 3.68 today. BUN slightly improved. Initial urinalysis was completely benign. No evidence of hydronephrosis noted on renal ultrasound. Baseline creatinine is near 1. He is not on steroids and there is no signs of GI bleed. 2. Hyponatremia secondary to acute kidney injury. Improving. 3. Coronary artery disease status post CABG 2 on 01/30/2018. 4. Severe mitral regurgitation status post mitral valve repair on 01/30/2018. 5. Anemia. Iron deficiency noted - status post 3 doses of IV iron. 6. Insulin-dependent diabetes mellitus. 7. Hyperphosphatemia maintained on PhosLo. 8. Atrial fibrillation. Rate controlled. Maintained on amiodarone and beta lencho. 9. Urinary retention. Narvaez catheter reinserted on February 10 due to urinary retention. Plan: Hep-Lock IV fluids. Start Lasix 60 mg orally twice daily. Avoid nephrotoxic agents and hypotensive episodes - blood pressures have improved. Encouraged oral intake - encourage protein intake. 1.2 L fluid restriction.. No need for renal replacement therapy at this time. Will continue to follow while in inpatient rehab.
--- NOTE | 2018-02-13 07:57 | XR ---
EXAMINATION TYPE: XR chest 2V DATE OF EXAM: 02/13/2018 COMPARISON: 02/12/2018 INDICATION: Post cardiac surgery TECHNIQUE: Frontal and lateral views of the chest are obtained. FINDINGS: The heart size is borderline prominent. The pulmonary vasculature is normal. Small posterior pleural effusion is present, likely on the right. Sternotomy wires are present from t he cardiac surgery. IMPRESSION: 1. Small posterior pleural effusion, similar to prior exam.
[2018-02-13] MEDS ORDERED: HEPARIN SODIUM,PORCINE 5,000 UNIT/ML 1 ML VIAL SQ SCH (08:00)
[2018-02-13] MEDS: IPRATROPIUM-ALBUTEROL 3 ML NEB INHALATION SCH (08:40)
[2018-02-13 08:48] VITALS: BP 113/60; TEMP 96.6
[2018-02-13] MEDS: AMIODARONE 200 MG TAB PO SCH (08:52)
[2018-02-13] MEDS: CEFUROXIME 250 MG TAB PO SCH (08:53)
[2018-02-13] MEDS: guaiFENesin 600 MG TABLET.ER PO SCH (08:53)
[2018-02-13] MEDS: ATORVASTATIN 40 MG TAB PO SCH (08:53)
[2018-02-13] MEDS: ASPIRIN 81 MG PO SCH (08:53)
[2018-02-13] MEDS: METOPROLOL TARTRATE 12.5 MG TAB PO SCH (08:54)
[2018-02-13] MEDS: SENNOSIDES-DOCUSATE SODIUM 1 EACH TAB PO SCH (08:54)
[2018-02-13 08:56] VITALS: PULSE 76
[2018-02-13] MEDS: INSULIN DETEMIR 100 UNIT/ML 10 ML VIAL SQ SCH (09:00)
[2018-02-13] MEDS ORDERED: APIXABAN 2.5 MG TABLET PO SCH (09:00)
[2018-02-13] MEDS ORDERED: FUROSEMIDE 20 MG TAB PO SCH (09:00)
--- NOTE | 2018-02-13 09:04 | P.PN ---
Subjective Progress Note Date: 02/13/18 HPI: Bird Maria~is a 77 y.o.~male~~being seen examined and evaluated today for consultation. This patient was admitted to the [facility] on 01/21/18-after coming in with complaints of dyspnea with no relief from his inhaler and having significant chest pressure. Patient was found to be in A. fib with RVR and was started on a heparin drip. Patient did have an echocardiogram which revealed an EF of 55% with severe mitral regurg is RVSP P was 53 mmHg. He also had a Karlee scan stress test that was also abnormal and a PATTIE with heart catheter, please see those notes for details. Currently the patient was transfered to [facility] on 01/27/18 for a CABG and mitral valve replacement. Upon examination the patient's resting up in bed on room air. He denies any shortness of breath cough or congestion at this time. He denies any smoking history however did state that he did chew tobacco on occasion. He denies any episodes of snoring however states that his sleep each night is very restless and he wakes up a minimum of 6 times per night. The patient has never had a workup for obstructive sleep apnea. Patient also states that he has had 2 previous surgeries 1 on his knee and shoulders and had no problems with anesthesiology, or waking up from surgery. Education has been provided to the patient on the extent of the surgery as well as education on mechanical ventilation intubation and extubation with possible best case scenario outcomes and worst-case scenario comes. Patient verbalizes understanding. Interval History: 01/29/18- patient is being seen examined and evaluated today on rounds. He is resting up in bed on room air. CT is feeling well. Has been ambulating in the hallway. Has been utilizing his incentive spirometer and pulling volumes of approximately 1750 arousals. He denies any cough or congestion at this time. Patient is planned for a CABG tomorrow with cardiothoracic surgery. Preop workup has been completed. He is afebrile no further complaints. All labs and reports have been reviewed. 01/30/2018: Patient seen and examined in the intensive care unit with nursing staff at bedside. The patient has returned from CABG and valve replacement. The patient is on full ventilator support. Ventilator has been adjusted and ABG reviewed. No current issues per nursing staff. 01/31-02/01/[address] АННА Smith notes 02/02/18- patient is being seen examined and evaluated today in the intensive care unit. Patient has been slightly hypotensive and his Primacor has been weaned off off, dopamine has been decreased as well per cardiothoracic services. He continues on insulin drip per protocol. Urine output has been 50- 60 miles per hour. He continues on 4 L of supplemental oxygen via nasal cannula. Does complain of some shortness of breath with exertion and activity. Denies any cough or congestion. He continues to have chest tubes in place to mediastinal and one left pleural itch chest tube did produce 50-70 miles overnight. Patient has been tolerating his clear liquid diet about 75% this morning. He did not need any BiPAP overnight. He continues to have epicardial pacer in VVI mode. He is afebrile no further complaints. 02/03/18- patient is being seen examined and evaluated today on rounds. Patient is resting up in bed on supplemental oxygen. He continues on Lasix drip insulin and dopamine. Patient has noted to have a BUN of 63, his Creatinine is increased to 3.7. Nephrology will be consulted. Chest x-ray was reviewed and does show some progressive pulmonary edema with small right-sided pleural effusion as well as cardiogenic fluid overload. Patient's blood pressure is stable. Per the nursing staff the patient may undergo his chest chest tube removal today. He is hemodynamically stable, no further complaints. Using his incentive spirometer. 02/04/18- patient is being seen examined and evaluated today on rounds. He remains in the intensive care unit. His BUN today is 77 g 3.6, nephrology was consulted yesterday and was subsequently canceled per the admitting team. Chest x-ray was reviewed and does show some improvement and CHF and improvement in the right pleural effusion. Patient was taken off Lasix drip and switched to IV push Lasix. His chest tube was removed yesterday. His dopamine is currently on hold. He is hemodynamically stable. 02/05/2018: Patient seen and examined. Patient has been transferred from the intensive care unit. His BUN today is 83 and creatinine is 3.4. The patient states he is having more pain today. He is currently sitting up in the chair. He states that he has had urinary retention and had to be straight cath this morning. He does have intermittent shortness of breath but states it is improving. 02/06/18-patient is being seen examined and evaluated today on the selective care unit. The patient was downgraded from the ICU yesterday. He is resting up in bed on room air. States he does not have any shortness of breath cough or congestion at this time. His BUN today is 87 g 3.5. He continues to have some urinary retention today and had to be straight cath again. The patient also complains of some constipation and is being put on a bowel regimen. He is afebrile no further complaints. Has been working with PT and OT. 02/07/18- patient is being seen examined and evaluated today on rounds. Patient is resting up in bed and intermittently using oxygen on and off. He still has some shortness of breath with exertion. He was able to have a bowel movement yesterday. He continues to have urinary retention and a Narvaez catheter had to be placed. Patient's BUN is 93 creatinine is 3.25. He continues with PT and OT patient will require inpatient rehab upon discharge. 02/08/2018: Patient seen and examined. Patient states he is starting to feel very weak and that he is having cramping in his hands. The patient states that he is getting very frustrated and wants to go home. He doesn't understand what is going on and why it's taking so long. He states his breathing has been okay. He did have an episode of hypotension this morning. Cardiothoracic surgery was notified. The patient's urine output has been adequate however his BUN is continually climbing to 100 and his creatinine today is 3.8. 02/09/18- patient is being seen examined and evaluated today on rounds. His breathing has been stable. He is on room air. He does have some shortness of breath with exertion and activity, denies any cough or congestion. Patient's Narvaez catheter was just discontinued this morning the patient has not urinated as of yet. It is noted today that his BUN continues to climb and is now 108 and his creatinine is now 3.8. Patient complains of achy restless legs. 02/10/18- patient seen seen examined and evaluated today on rounds. He is resting up in bed on room air. His chest x-ray was reviewed and does show some mild bibasilar atelectasis, doubt pneumonia. His sodium today is noted to be 126, BUN 109 creatinine is 4.0. WBCs 14.7. The patient states he feels short of breath and does have a congested cough without any sputum production. He has been using his incentive spirometer and pulling volumes of 1750. Nephrology is on consult and has started the patient on IV fluids. He continues to have urinary retention and needed to have another straight cath and 600 mL of urine was returned. Still complains of restless legs. He continues to work with PT and OT. Patient has discharge planning and process to inpatient rehab facility. 02/11/2018: Patient seen and examined. Patient states he doesn't feel well. He states his breathing is okay. He denies fevers and chills. He denies cough. He does not have chest pain. The patient will require hemodialysis today. Apparently he found out yesterday that his has terminal cancer. The patient did receive 1 dose of Lasix overnight due to low urine output. His BUN and creatinine continued to climb. 02/12/18- patient is being seen examined and evaluated today on rounds. He is resting up in bed on 2 L of supplemental oxygen via nasal cannula. He states he continues with shortness of breath with exertion. Patient's BUN today is 114 his creatinine is 4.13. Patient was supposed to get dialysis catheter yesterday however he was on eloquent at this needed to be held for today. However after we had a discussion with nephrology, it is decideded since the kidney functions have improved ever so minimally/slightly, we will wait one more day and hold off on the dialysis. His sodium continues to be 126. IV fluids as ordered. He is complaining of severe restless legs. Patient is getting really frustrated with his legs. Also continues to expresses concern in regards to his kidney function 02/13/18- patient being seen examined and evaluated today on rounds. He is resting up in bed on 2 L of supplemental oxygen via nasal cannula. Shortness of breath with exertion still continues his BUN has improved to 115 his creatinine is now down to 3.68. He has been making good urine. His sodium is noted to be 128 today. Chest x-ray was reviewed and does show a stable small posterior pleural effusion. Patient is being worked up for possible discharge to inpatient rehab today. Objective - Vital Signs Vital signs: Vital Signs Temp 96.6 F L 02/13/18 08:15 Pulse 76 02/13/18 08:56 Resp 16 02/13/18 08:15 BP 113/60 02/13/18 08:15 Pulse Ox 96 02/13/18 08:15 Intake & Output 02/12/18 02/13/18 02/13/18 18:59 06:59 18:59 Intake Total 360 500 360 Output Total 1100 600 Balance -740 -100 360 Weight 113 kg Intake: Intake, IV Titration 400 Amount Sodium Chloride 0.9% 1, 400 000 ml @ 50 mls/hr IV . Q20H SHAUNA Rx#:[id number] Oral 360 100 360 Output: Urine 1100 600 Straight 725 Other: Voiding Method Indwelling Catheter Indwelling Catheter Indwelling Catheter # Voids 1 ABP, PAP, CO, CI - Last Documented Arterial Blood Pressure 91/32 Pulmonary Artery Pressure 35/18 Cardiac Output 4.8 Cardiac Index 2.9 - Exam CONSTITUTIONAL: Patient is seen in no acute distress, generalized weakness HEENT: Head is normocephalic, atraumatic. Pupils are equal, conjunctiva clear. Neck is supple, trachea is midline. No JVD. RESPIRATORY: ~Lungs clear to auscultation. No wheezes, rales or rhonchi appreciated. Respirations are even and unlabored. Bases diminished bilaterally CARDIOVASCULAR: ~Heart is irregular rate and rhythm. S1 and S2 are heard. No murmur. GASTROINTESTINAL: ~Abdomen is soft, nontender, nondistended. Bowel sounds are positive. EXTREMITIES: ~No lower extremity edema is noted. Pedal pulses are palpable bilaterally. NEUROLOGICAL: ~Patient is alert and oriented 3. Speech is clear and interactive. No tremor is noted. Noted to have some significant restless legs - Labs CBC & Chem 7: 02/13/18 06:04 02/13/18 06:04 Labs: Abnormal Lab Results - Last 24 Hours (Table) 02/12/18 02/12/18 02/12/18 Range/Units 11:34 16:33 17:19 WBC (3.8-10.6) k/uL RBC (4.30-5.90) m/uL Hgb (13.0-17.5) gm/dL Hct (39.0-53.0) % RDW (11.5-15.5) % Neutrophils # (1.3-7.7) k/uL Lymphocytes # (1.0-4.8) k/uL Sodium 125 L (137-145) mmol/L Chloride 88 L (98-107) mmol/L BUN 116 H* (9-20) mg/dL Creatinine 3.87 H (0.66-1.25) mg/dL Glucose 124 H (74-99) mg/dL POC Glucose (mg/dL) 102 H 141 H (75-99) mg/dL Calcium 7.9 L (8.4-10.2) mg/dL Phosphorus (2.5-4.5) mg/dL Total Protein (6.3-8.2) g/dL Albumin (3.5-5.0) g/dL 02/12/18 02/13/18 02/13/18 Range/Units 20:48 02:07 06:04 WBC 14.1 H (3.8-10.6) k/uL RBC 3.35 L (4.30-5.90) m/uL Hgb 9.6 L (13.0-17.5) gm/dL Hct 29.9 L (39.0-53.0) % RDW 16.4 H (11.5-15.5) % Neutrophils # 12.2 H (1.3-7.7) k/uL Lymphocytes # 0.4 L (1.0-4.8) k/uL Sodium (137-145) mmol/L Chloride (98-107) mmol/L BUN (9-20) mg/dL Creatinine (0.66-1.25) mg/dL Glucose (74-99) mg/dL POC Glucose (mg/dL) 162 H 186 H (75-99) mg/dL Calcium (8.4-10.2) mg/dL Phosphorus (2.5-4.5) mg/dL Total Protein (6.3-8.2) g/dL Albumin (3.5-5.0) g/dL 02/13/18 02/13/18 Range/Units 06:04 06:09 WBC (3.8-10.6) k/uL RBC (4.30-5.90) m/uL Hgb (13.0-17.5) gm/dL Hct (39.0-53.0) % RDW (11.5-15.5) % Neutrophils # (1.3-7.7) k/uL Lymphocytes # (1.0-4.8) k/uL Sodium 128 L (137-145) mmol/L Chloride 91 L (98-107) mmol/L BUN 115 H* (9-20) mg/dL Creatinine 3.68 H (0.66-1.25) mg/dL Glucose 150 H (74-99) mg/dL POC Glucose (mg/dL) 175 H (75-99) mg/dL Calcium 7.9 L (8.4-10.2) mg/dL Phosphorus 5.9 H (2.5-4.5) mg/dL Total Protein 6.0 L (6.3-8.2) g/dL Albumin 3.4 L (3.5-5.0) g/dL Assessment and Plan Assessment: Assessment: Chest pain Severe mitral regurgitation, s/p MVR ASCAD, s/p CABG 80-90% stenosis of his right coronary artery 60-70% stenosis of the AV circumflex COPD Possible GHULAM Diabetes mellitus type 2 Hyperlipidemia Urinary retention bibasilar atelectasis, doubt pneumonia Plan: s/p CABG Patient is cleared for discharge to inpatient rehab Medications have been reviewed and will be continued as ordered. Swathi Borrero reviewed from [facility] reviewed, suggestive of restrictive lung disease, however, without lung volumes and full PFT cannot definitively diagnose. Hemodynamics per CVTS Monitor I & O's Outpatient PFT and PSG recommended. Incentive spirometry and pulmonary hygiene. Supplemental oxygen to maintain oxygen saturations greater than 90% if needed. GI and DVT prophylaxis. Patient will also benefit from an outpatient PSG once medically stable and discharged from the hospital. Patient being evaluated for inpatient rehab, discharge planning We will continue to monitor labs/results and adjust treatment as necessary. Case is discussed with nephrology, hold on dialysis. Continue to reassess daily Requip for restless legs continue to monitor closely I performed an examination of the patient and discussed their management with the nurse practitioner. I have reviewed the nurse practitioner's note and agree with the documented findings and plan of care.
--- NOTE | 2018-02-13 09:17 | P.DS ---
Providers Date of admission: 01/27/18 22:09 Expected date of discharge: 02/13/18 Attending physician: Fabricio Spicer Consults: 01/28/18 01:15 Consult Physician Routine Consulting Provider: Lisbet Marte Consult Reason/Comments: pre-op CABG Do you want consulting provider notified?: Yes, Notify in am 01/28/18 01:16 Consult Physician Routine Consulting Provider: Fabricio Spicer Consult Reason/Comments: CABG, mitral valve repair Do you want consulting provider notified?: Yes, Notify in am 01/28/18 02:45 Consult Physician Routine Consulting Provider: Ronaldo Salas Consult Reason/Comments: transfer from [facility] for CABG, mitral valve replacemnet Do you want consulting provider notified?: Yes, Notify in am 01/28/18 08:27 Consult to Anesthesia Routine Consulting Provider: Anesthesia,Services Consult Reason/Comments: Cardiac Surgery Pre-Op 01/31/18 09:34 Consult Physician Routine Consulting Provider: Michael Robledo Consult Reason/Comments: Medical Management Do you want consulting provider notified?: Yes 01/31/18 12:19 Consult Physician Routine Consulting Provider: Rajesh Diego Consult Reason/Comments: medical debility Do you want consulting provider notified?: Yes 02/06/18 09:32 Consult Physician Routine Consulting Provider: Michael Wayne Consult Reason/Comments: retention despite flomax, straight cath Do you want consulting provider notified?: Yes 02/09/18 09:47 Consult Physician Routine Consulting Provider: Bert Blankensihp Consult Reason/Comments: ARF Do you want consulting provider notified?: Yes 02/11/18 08:58 Consult Physician Urgent Consulting Provider: Juan Jewell Consult Reason/Comments: Need temp dialysis port Do you want consulting provider notified?: Yes Primary care physician: Michael Venkat - Discharge Diagnosis(es) (1) Paroxysmal atrial fibrillation Current Visit: Yes Status: Acute (2) Acute kidney injury Current Visit: Yes Status: Acute (3) History of skin cancer Current Visit: No Status: Resolved (4) Asthma Current Visit: Yes Status: Acute (5) COPD (chronic obstructive pulmonary disease) Current Visit: Yes Status: Chronic (6) Diabetes mellitus type 2 in obese Current Visit: Yes Status: Chronic (7) Enlarged prostate Current Visit: Yes Status: Chronic (8) Hyperlipidemia Current Visit: Yes Status: Chronic (9) Hypertension Current Visit: Yes Status: Chronic (10) Personal history of nicotine dependence Current Visit: No Status: Resolved (11) Presence of stent in coronary artery in patient with coronary artery disease Current Visit: Yes Status: Chronic (12) Severe mitral regurgitation by prior echocardiogram Current Visit: Yes Status: Chronic (13) Left carotid stenosis Current Visit: Yes Status: Chronic Hospital Course: FINAL DIAGNOSIS: 1. Severe mitral regurgitation 2. Two-vessel coronary artery disease 3. New-onset preoperative paroxysmal atrial fibrillation 4. Hypertension 5. Hyperlipidemia 6. Previous coronary artery disease with stent placement 7. Asthma 8. Obesity 9. Osteoporosis 10. 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 Previous tobacco dependence 12. Moderate COPD with a preoperative FEV1 52% of predicted 13. Diabetes mellitus type 2 with preoperative hemoglobin A1c 7.4% 14. Left carotid stenosis 50-79% 15. BPH 16. Postoperative hypotension and low urine output requiring combination of IV pressors, Lasix, and inotropic support secondary to low cardiac output, intervascular hypovolemia, an unexpected but potential outcome of surgery 17. Postoperative acute kidney injury, an unexpected but potential outcome of surgery secondary to hemodynamic instability 18. Postoperative urinary retention, an unexpected but potential outcome with the patient having a previous history of urinary retention after surgery PRINCIPAL PROCEDURE: 1. Mitral valve repair with a #30 mm CarboMedics annular flex band 2. Clip ligation of the left atrial appendage with a #35 mm AtriClip 3. Urgent coronary bypass grafting 2 with reverse saphenous vein graft off the aorta to the circumflex artery and the right coronary artery 4. Endoscopic harvesting of the right greater saphenous vein 5. Complete left-sided maze procedure using radiofrequency ablation as well as cryoablation 6. Intraoperative transesophageal echocardiogram HISTORY OF PRESENT ILLNESS: This is a 69-year-old gentleman who follows with Dr. Robledo on an outpatient basis. Over a 3 month period the patient had reported complaints of increased shortness of breath with activity, especially worse in cold weather. At the beginning of January he developed an episode of chest pain associated with shortness of breath without any nausea, vomiting, diaphoresis, dizziness, or any other significant symptoms. He presented to the emergency room, a 12-lead EKG was completed demonstrating atrial fibrillation with rapid ventricular response, and he was admitted for evaluation and treatment. He had a 2D echocardiogram demonstrating severe central mitral valve regurgitation, dilated left ventricle with an ejection fraction of 50-55% , and mild tricuspid regurgitation. He was recommended to undergo heart catheterization which demonstrated 60-70% stenosis of the circumflex artery, 80 % stenosis of the right coronary artery, and mild nonobstructive coronary artery disease to the left anterior descending coronary artery. Ventriculogram completed at that time demonstrated an ejection fraction 50-55% with severe mitral valve regurgitation. Dr. Spicer from cardiothoracic surgery was consulted regarding surgical recommendations. The patient was recommended to undergo mitral valve repair and coronary artery bypass grafting. Due to his new onset paroxysmal atrial fibrillation he was also recommended to have a Mcintosh maze procedure with left atrial appendage ligation. An extensive discussion was had with the patient and his family, risks and benefits were explained, all questions were answered, and consent was obtained to proceed with surgery. HOSPITAL COURSE: On 01/30/2018 the patient was taken to the preoperative area, prepared in the usual fashion, and subsequently taken to the operating room where Dr. Spicer performed a mitral valve repair with a #30 mm Carbo[employer] annular flex band, clip ligation of the left atrial appendage with a #35 mm AtriClip, urgent coronary bypass grafting 2 with reverse saphenous vein graft off the aorta to the circumflex artery and the right coronary artery, endoscopic harvesting of the right greater saphenous vein, complete left-sided maze procedure using radiofrequency ablation as well as cryoablation, and intraoperative transesophageal echocardiogram. Upon completion of surgery the patient was transferred to the cardiovascular intensive care unit where he was recovered, monitored hemodynamically, and where he progressed to cardiac rehabilitation phase 1. He was extubated, he did experience postoperative hypotension and low urine output requiring IV pressors, Lasix, and inotropic support but eventually all lines, tubes, drips were discontinued when appropriate. He also experienced postoperative acute kidney injury secondary to hemodynamic instability which was initially managed per our service but eventually did require nephrology support. He was transferred to [address] [place] [address] for further monitoring and rehabilitation. The patient had postoperative urinary retention which he had experienced after a previous surgery, urology was consulted, ness was reinserted, and patient was to having voiding trial once at rehab and acute issues resolved. His oxygen was titrated down, he continued to work with physical and occupational therapy, and he was felt ready to be discharged to [facility] inpatient rehab on postoperative day #14 with cardiology, nephrology, and urology to follow. He received written and verbal instruction regarding medications, activity restrictions, signs and symptoms requiring physician notification, and follow-up appointments. COMPLICATIONS: The patient experienced postoperative hypotension, low urine output, acute kidney injury, and urinary retention, all of which were treated accordingly. Plan - Discharge Summary New Discharge Prescriptions: No Action glipiZIDE/METFORMIN HCL [glipiZIDE/METFORMIN HCL 2.5-500 mg] 2 tab PO HS Tamsulosin [Flomax] 0.8 mg PO HS Metoprolol Succinate (ER) [Toprol Xl] 50 mg PO HS Magnesium Oxide [Mag-Ox] 400 mg PO HS Benazepril HCl 10 mg PO HS Atorvastatin [Lipitor] 40 mg PO HS Cholecalciferol (Vitamin D3) [Vitamin D3] 2,000 unit PO HS sitaGLIPtin [Januvia] 100 mg PO HS Discharge Medication List Atorvastatin [Lipitor] 40 mg PO HS 01/27/18 [History] Benazepril HCl 10 mg PO HS 01/27/18 [History] Cholecalciferol (Vitamin D3) [Vitamin D3] 2,000 unit PO HS 01/27/18 [History] Magnesium Oxide [Mag-Ox] 400 mg PO HS 01/27/18 [History] Metoprolol Succinate (ER) [Toprol Xl] 50 mg PO HS 01/27/18 [History] Tamsulosin [Flomax] 0.8 mg PO HS 01/27/18 [History] glipiZIDE/METFORMIN HCL [glipiZIDE/METFORMIN HCL 2.5-500 mg] 2 tab PO HS [History] sitaGLIPtin [Januvia] 100 mg PO HS 01/27/18 [History] Follow up Appointment(s)/Referral(s): Maximino Fernando MD [STAFF PHYSICIAN] - 02/27/18 9:45 am Michael Robledo MD [Primary Care Provider] - 1 Week (Please make appointment for [address] [facility]) Lisbet Marte DO [Doctor of Osteopathic Medicine] - 02/26/18 9:30 am Fabricio Spicer MD [STAFF PHYSICIAN] - 02/24/18 2:30 pm Casa Gaitan MD [STAFF PHYSICIAN] - 1 Week Activity/Diet/Wound Care/Special Instructions: pt will use DC RX
[2018-02-13] MEDS: SODIUM FERRIC GLUCONAT-SUCROSE 125 MG in SODIUM CHLORIDE 0.9% 100 ML IVPB SCH (10:44)
[2018-02-13 10:48] VITALS: BMI 33.7
--- NOTE | 2018-02-13 12:19 | P.PN ---
Subjective Progress Note Date: 02/13/18 This is a 69 HO pleasant gentleman patient of Dr. Robledo with underlying history of CAD with prior PCI stent placement, hypertension hypertensive cardiovascular disease hyperlipidemia and diabetes mellitus type 2 asthma OR arthritis COPD admitted to [facility] and was found on imaging studies secondary to his chest pain new onset atrial fibrillation with RVR and shortness of breath, cardiac cath performed 01/26/2018 showing 80% stenosis of RCA, 70% stenoses of the left circumflex involving the AV groove circumflex ostial portion, severe mitral regurgitation, dilated left ventricle ejection fraction 50-55%. He was transferred to [facility] for mitral valve placement and CABG 2 vessel critical stenosis involving left circumflex and right coronary artery. CABG most likely would be anticipated to be done January 30 He was seen at [facility] by , for pulmonary clearance, pertinent laboratories creatinine 1.01 hemoglobin 12.4 TSH 0.93 hemoglobin A1c not done,. Patient currently is on basal bolus Levemir and premeal coverage, instead of home oral medication, continue on Januvia 100 mg at bedtime, cardiology to see, Dr. Marte for consult and consult to Dr. Spicer cardiothoracic, Dr. Salas cardiology. He should maintain IV heparin 01/29: Patient is followed by Dr. Marte and Dr. VC Fry. Patient is scheduled for coronary artery bypass surgery and mitral valve replacement or repair on Friday. Blood sugars are running 156-193. Additional 2units of Novolog added premeal until surgery. Patient states his blood sugars are usually 100-130 at home. 01/30: Patient is going for surgery. 01/31 Patient is postoperative day 1 with mitral valve repair, coronary artery bypass grafting X2. Patient examined bed side. Appears tired. Complains of shortness of breath intermittently. Currently on 2 L of oxygen. Blood pressure continues to drop to systolic in low 80. Initiated on norepinephrine added low -dose. Chest x-ray suggested worsening vascular congestion and pleural effusion. Received 1 dose 80 mg IV Lasix today [place] catheter removed today. Patient is extubated since this morning. 02/01 Patient has increased cough and congestion, on 6 L nasal cannula. CXR concerning for cngestion and pleural effusion. on lasix drip. Lantus increased to 15 units bedtime to decrease insulin requirement. Continue trodjenta 5 mg po daily while in hospital. COntinue insulin drip, plan to switich to sliding scale if not much requirement on drip. Continue metoprolol 25 mg op BID 02/02: Patient has been evaluated by Dr. Diego and may be a candidate for inpatient. Primacor has been discontinued. Patient is currently on dopamine, insulin drip and Lasix drip. Epicardial wires and chest tube out today. Blood sugars are running between 101 and 174. White count has jumped to 19.7 and renal function is worsening with BUN 49 creatinine 3.06. The patient states he did eat his breakfast this morning. 02/03: Renal function continues to worsen with BUN 63 and creatinine 3.70 and phosphorus level continues to rise currently at 6.8. PhosLo will be added. Parathyroid hormone intact will be ordered. Consult with nephrology was added by pulmonary medicine but this was subsequently canceled. Regarding his blood sugars, insulin drip will be discontinued and Levemir will be increased to 20 units at bedtime. Patient is also on dopamine and insulin drips. Lasix drip was discontinued and patient switched to IV Lasix. tle. 02/04: 02/04: Patient is now off dopamine. Insulins will be adjusted to NovoLog 5 units with meals and Levemir 12 units twice daily and insulin drip will be discontinued. Ensure will be started as patient is eating very little. Repeat BUN 77 creatinine 3.60. Parathyroid intact is 114 and patient will need follow- up with nephrology as an outpatient. 02/05: Blood sugars are elevated and his morning 70/30 insulin will be increased to 23 units and evening to 20 units. Scheduled NovoLog will be increased to 8 units with meals. Patient ate about 75% of his dinner last night and 25% of his breakfast. He is taking some Ensure. Patient to be transferred to select care today. 02/06: Patient is now seen on the selective care unit. Repeat chest x-ray shows persistent mild pulmonary vascular congestion and trace right pleural effusion. Left pleural effusion has resolved. No pneumothorax. Blood sugars are improved on current regime running between 111 and 145. BUN is 87 and creatinine 3.5. Hemoglobin is 9.6. Patient is working with PT and OT and is easily fatigued. At this point still anticipating discharge to [facility] for inpatient rehab once patient is cleared by cardiothoracic surgery. 02/09: Patient's kidney function slightly red worse we'll consult nephrology, he is more medically stable and will need probably to go to rehab from here for a period of time is still debilitated. Had more hematoma and bruise on the right leg area side of his graft for his bypass. His mobility still significantly decreased currently. We will continue PTOT and plan possibly if his stable otherwise including kidney function and cardiovascular might be discharged in the next 2 days to rehab at [facility]. 02/10: Renal function has continued to worsen with a creatinine of 4. He has been started on normal saline at 50 mL/h and diuretics are on hold. Narvaez catheter to be reinserted, 1.2 L fluid restriction and patient have repeat labs done this afternoon. Patient has been started on Ferrlecit IV 3 days. Renal ultrasound ordered. Patient is anticipating inpatient rehab. 02/11: Patient did sleep better last night for the first time. He still feels exhausted. Patient has not had bowel movement since last week. Senokot S changed to twice daily, MOM and prune juice to be given, fleets if necessary. Patient continues to suffer from worsening renal failure and is in need of dialysis. BUN 115 and creatinine 4.21, sodium 126 and hgb 9.1. Vascular consult has been placed by nephrology. Patient found out yesterday that his has been diagnosed with stage 4 cancer. He continues to complain of itchiness. 02/12: Patient is continued on IV fluids of normal saline at 50 mL per hour and repeat dose of IV Lasix, fluid restriction of 1200 mL. Final dose of Ferrlecit to be given today.. Patient could not have dialysis catheter placed due to eliquis. White count is at 17, hemoglobin 9.3, BUN 114 and creatinine 4.13. Sodium is 126 with chloride of 88. Blood sugars up and running between 90 and 129. 02/13: Patient's renal function is improving with BUN of 1:15 and creatinine 3.68. His hemoglobin 9.6. Dr. Blankenship has determined the patient does not need to go on dialysis at this time. Patient is scheduled for discharge to [facility] today. Objective - Vital Signs Vital signs: Vital Signs Temp 96.6 F L 02/13/18 08:15 Pulse 76 05/25/18 08:56 Resp 16 02/13/18 08:15 BP 113/60 02/13/18 08:15 Pulse Ox 96 02/13/18 08:15 Intake & Output 02/12/18 02/13/18 02/13/18 18:59 06:59 18:59 Intake Total 360 500 360 Output Total 1100 600 Balance -740 -100 360 Weight 113 kg Intake: Intake, IV Titration 400 Amount Sodium Chloride 0.9% 1, 400 000 ml @ 50 mls/hr IV . Q20H [facility] Rx#:[id number] Oral 360 100 360 Output: Urine 1100 600 Straight 725 Other: Voiding Method Indwelling Catheter Indwelling Catheter Indwelling Catheter # Voids 1 ABP, PAP, CO, CI - Last Documented Arterial Blood Pressure 91/32 Pulmonary Artery Pressure 35/18 Cardiac Output 4.8 Cardiac Index 2.9 - Exam General appearance: Present: cooperative, disheveled, no acute distress, obese. Absent: average body habitus, mild distress, morbidly obese, severe distress, thin - EENT Eyes: Present: normal appearance. Absent: abnormal pupil, anicteric sclerae, disc margins sharp, edentulous, EOMI, PERRLA, fundus normal, photophobia, dentition normal, poor dentition, ptosis, scleral icterus ENT: Present: hard of hearing, pharyngeal erythema. Absent: hearing grossly normal, NA/AT, normal oropharynx, other, thrush, tonsillar exudates, tonsillar swelling Ears: bilateral: normal - Neck Neck: Present: normal ROM. Absent: lymphadenopathy, other, rigidity, stridor, thyromegaly Carotids: bilateral: upstroke normal Thyroid: bilateral: normal size - Respiratory Respiratory: left: dullness, rales, bilateral: diminished, wheezing, prolonged expiration - Cardiovascular Rhythm: regular Heart sounds: normal: S1, S2 Abnormal Heart Sounds: Present: systolic murmur, S3 Gallop - Gastrointestinal General gastrointestinal: Present: distended, normal bowel sounds, soft. Absent : absent bowel sounds, decreased bowel sounds, hepatomegaly, hyperactive bowel sounds, organomegaly, rigid, scaphoid, splenomegaly, tenderness, umbilical hernia, ventral hernia - Integumentary Integumentary: Present: cellulitis, normal, pale, rash. Absent: calor, cyanotic , decreased turgor, flushed, jaundiced, normal turgor, ulcer - Neurologic Neurologic: Present: CNII-XII intact - Musculoskeletal Musculoskeletal: Present: gait normal, generalized weakness, strength equal bilaterally. Absent: right sided weakness, left sided weakness - Psychiatric Psychiatric: Present: A&O x's 3, appropriate affect. Absent: intact judgment & insight - Labs CBC & Chem 7: 02/13/18 06:04 02/13/18 06:04 Labs: Abnormal Lab Results - Last 24 Hours (Table) 02/12/18 02/12/18 02/12/18 Range/Units 11:34 16:33 17:19 WBC (3.8-10.6) k/uL RBC (4.30-5.90) m/uL Hgb (13.0-17.5) gm/dL Hct (39.0-53.0) % RDW (11.5-15.5) % Neutrophils # (1.3-7.7) k/uL Lymphocytes # (1.0-4.8) k/uL Sodium 125 L (137-145) mmol/L Chloride 88 L (98-107) mmol/L BUN 116 H* (9-20) mg/dL Creatinine 3.87 H (0.66-1.25) mg/dL Glucose 124 H (74-99) mg/dL POC Glucose (mg/dL) 102 H 141 H (75-99) mg/dL Calcium 7.9 L (8.4-10.2) mg/dL Phosphorus (2.5-4.5) mg/dL Total Protein (6.3-8.2) g/dL Albumin (3.5-5.0) g/dL 02/12/18 02/13/18 02/13/18 Range/Units 20:48 02:07 06:04 WBC 14.1 H (3.8-10.6) k/uL RBC 3.35 L (4.30-5.90) m/uL Hgb 9.6 L (13.0-17.5) gm/dL Hct 29.9 L (39.0-53.0) % RDW 16.4 H (11.5-15.5) % Neutrophils # 12.2 H (1.3-7.7) k/uL Lymphocytes # 0.4 L (1.0-4.8) k/uL Sodium (137-145) mmol/L Chloride (98-107) mmol/L BUN (9-20) mg/dL Creatinine (0.66-1.25) mg/dL Glucose (74-99) mg/dL POC Glucose (mg/dL) 162 H 186 H (75-99) mg/dL Calcium (8.4-10.2) mg/dL Phosphorus (2.5-4.5) mg/dL Total Protein (6.3-8.2) g/dL Albumin (3.5-5.0) g/dL 02/13/18 02/13/18 Range/Units 06:04 06:09 WBC (3.8-10.6) k/uL RBC (4.30-5.90) m/uL Hgb (13.0-17.5) gm/dL Hct (39.0-53.0) % RDW (11.5-15.5) % Neutrophils # (1.3-7.7) k/uL Lymphocytes # (1.0-4.8) k/uL Sodium 128 L (137-145) mmol/L Chloride 91 L (98-107) mmol/L BUN 115 H* (9-20) mg/dL Creatinine 3.68 H (0.66-1.25) mg/dL Glucose 150 H (74-99) mg/dL POC Glucose (mg/dL) 175 H (75-99) mg/dL Calcium 7.9 L (8.4-10.2) mg/dL Phosphorus 5.9 H (2.5-4.5) mg/dL Total Protein 6.0 L (6.3-8.2) g/dL Albumin 3.4 L (3.5-5.0) g/dL Assessment and Plan Plan: 1. Severe mitral regurgitation and CAD with 2 vessel critical stenosis s/p CABG , and mitral valve repair, Dr. Spicer from cardiovascular surgery. Cardiology is following. Dr. Vides is covering for intensive care management. extubated. Continue eliquis, aspirin 81 mg daily, Lipitor 40 mg daily. Continue amiodarone. 2. Diabetes mellitus type 2. Continue Levemir 23 units in the morning, 20 units in the evening, NovoLog 8 units with meals and scale. 3. New onset atrial fibrillation, paroxysmal, currently on oral amiodarone and metoprolol tartrate 12.5 mg twice daily 4. Acute kidney injury with CKD stage II with baseline creatinine 1.01, continue to monitor. Nephrology consult is appreciated. Patient has been started on normal saline at 50 mL per hour, Lasix dose daily, avoid nephrotoxic agents and hypotensive episodes. Narvaez catheter in place. 1.2 L fluid restriction. Vascular consult for dialysis access. 5. Hyperphosphatemia secondary to acute kidney injury. PhosLo added. Parathyroid hormone intact is elevated. 6. CAD with previous PCI and stent placement with recent cardiac cath [address] Reynolds found to have 60-70% stenosis involving left circumflex AV groove circumflex ostial portion, and RCA 80% stenosis mid RCA, EF 50-55% left ventricle end-diastolic pressure 14 severe mitral regurgitation. 7. BPH without urinary tract symptomatology. Continue Flomax or 0.8 mg at bedtime daily. Monitor for urinary retention. 8. Mild intermittent asthma without any current exacerbation with COPD and when necessary nebulizer, incentive spirometry, 9. Hypertensive cardiovascular disease. Patient on Lopressor. 10. History of skin cancer 11. Osteoarthritis, generalized. 12. Hyperlipidemia on Lipitor 40 mg daily 13. Anemia secondary to renal failure. Patient started on Ferrlecit 3 days GI prophylaxis. Protonix DVT prophylaxis Discharge plan: Inpatient rehab Impression and plan of care have been directed as dictated by the signing physician. Zoya Lenz nurse practitioner acting as scribe for signing physician.
--- NOTE | 2018-02-13 13:12 | P.PN ---
Subjective Progress Note Date: 02/13/18 This is 77-year-old gentleman transferred here from [facility], patient has two-vessel coronary artery disease and severe mitral regurg. He is scheduled to undergo surgery tomorrow. Patient was seen and examined this morning, doing well, denies any chest pain in his breathing has been stable. Blood pressure 115/70 with a heart rate in the 90s, 95% on room air. 02/09/2018 Patient was seen and examined this morning, status post mitral valve repair and coronary artery bypass grafting surgery 2. Patient has ambulated in the room to the doorway this morning, complaining of restless legs this morning. Breathing overall is stable. Blood pressure 100/60 with a heart rate in the 80s , 95% on room air. White blood cell count 12.2, hemoglobin 9.3, platelet count 308. Sodium 128, potassium 4.4, BUN 108, creatinine 3.8. 02/10/2018 Patient seen and examined this morning, mildly agitated, renal function continues to worsen with a creatinine today of 4. He is receiving normal saline at 50 mL per hour. Ambulating in his room only. Blood pressure 96/50, heart rate in the 80s. 02/11/2018 Patient seen and examined this morning, was given a dose of IV Lasix and diuresed well. Hemodynamically stable. Sodium 126, potassium 4.7, BUN 115, creatinine 4.2. 02/12/2018 Patient seen and examined this morning, sitting up in the chair at bedside. He is scheduled to undergo dialysis catheter placement. BUN 114 and creatinine 4.1. White blood cell count 17 and hemoglobin 9.3. 02/13/2018 Patient seen and examined this morning, being discharged to inpatient rehab today. Patient did not undergo dialysis catheter placement, the decision was made to continue current therapy and monitor renal function. BUN today is 1:15 and creatinine 3.6. Sodium 128 Objective - Vital Signs Vital signs: Vital Signs Temp 96.6 F L 02/13/18 08:15 Pulse 76 02/13/18 08:56 Resp 16 02/13/18 08:15 BP 113/60 02/13/18 08:15 Pulse Ox 96 02/13/18 08:15 Intake & Output 02/12/18 02/13/18 02/13/18 18:59 06:59 18:59 Intake Total 360 500 360 Output Total 1100 600 250 Balance -740 -100 110 Weight 113 kg 113 kg Intake: Intake, IV Titration 400 Amount Sodium Chloride 0.9% 1, 400 000 ml @ 50 mls/hr IV . Q20H [facility] Rx#:[id number] Oral 360 100 360 Output: Urine 1100 600 250 Straight 725 Other: Voiding Method Indwelling Catheter Indwelling Catheter Indwelling Catheter # Voids 1 ABP, PAP, CO, CI - Last Documented Arterial Blood Pressure 91/32 Pulmonary Artery Pressure 35/18 Cardiac Output 4.8 Cardiac Index 2.9 - Exam PHYSICAL EXAMINATION: HEENT: Head is atraumatic, normocephalic. Pupils equal, round. Neck is supple. There is no elevated jugular venous pressure. HEART EXAMINATION: Heart S1 S2 irregularly irregular . CHEST EXAMINATION: Lungs are clear with diminished air entry to bilateral bases. Sternum is stable. Heart had are in place. ABDOMEN: Soft, nontender. Bowel sounds are heard. No organomegaly noted. EXTREMITIES: 2+ peripheral pulses with no evidence of peripheral edema and no calf tenderness noted. Antiembolism stockings and SCDs in place. NEUROLOGIC patient is awake, alert and oriented -3. . - Labs CBC & Chem 7: 02/13/18 06:04 02/13/18 06:04 Labs: Abnormal Lab Results - Last 24 Hours (Table) 02/12/18 02/12/18 02/12/18 Range/Units 16:33 17:19 20:48 WBC (3.8-10.6) k/uL RBC (4.30-5.90) m/uL Hgb (13.0-17.5) gm/dL Hct (39.0-53.0) % RDW (11.5-15.5) % Neutrophils # (1.3-7.7) k/uL Lymphocytes # (1.0-4.8) k/uL Sodium 125 L (137-145) mmol/L Chloride 88 L (98-107) mmol/L BUN 116 H* (9-20) mg/dL Creatinine 3.87 H (0.66-1.25) mg/dL Glucose 124 H (74-99) mg/dL POC Glucose (mg/dL) 141 H 162 H (75-99) mg/dL Calcium 7.9 L (8.4-10.2) mg/dL Phosphorus (2.5-4.5) mg/dL Total Protein (6.3-8.2) g/dL Albumin (3.5-5.0) g/dL 02/13/18 02/13/18 02/13/18 Range/Units 02:07 06:04 06:04 WBC 14.1 H (3.8-10.6) k/uL RBC 3.35 L (4.30-5.90) m/uL Hgb 9.6 L (13.0-17.5) gm/dL Hct 29.9 L (39.0-53.0) % RDW 16.4 H (11.5-15.5) % Neutrophils # 12.2 H (1.3-7.7) k/uL Lymphocytes # 0.4 L (1.0-4.8) k/uL Sodium 128 L (137-145) mmol/L Chloride 91 L (98-107) mmol/L BUN 115 H* (9-20) mg/dL Creatinine 3.68 H (0.66-1.25) mg/dL Glucose 150 H (74-99) mg/dL POC Glucose (mg/dL) 186 H (75-99) mg/dL Calcium 7.9 L (8.4-10.2) mg/dL Phosphorus 5.9 H (2.5-4.5) mg/dL Total Protein 6.0 L (6.3-8.2) g/dL Albumin 3.4 L (3.5-5.0) g/dL 02/13/18 Range/Units 06:09 WBC (3.8-10.6) k/uL RBC (4.30-5.90) m/uL Hgb (13.0-17.5) gm/dL Hct (39.0-53.0) % RDW (11.5-15.5) % Neutrophils # (1.3-7.7) k/uL Lymphocytes # (1.0-4.8) k/uL Sodium (137-145) mmol/L Chloride (98-107) mmol/L BUN (9-20) mg/dL Creatinine (0.66-1.25) mg/dL Glucose (74-99) mg/dL POC Glucose (mg/dL) 175 H (75-99) mg/dL Calcium (8.4-10.2) mg/dL Phosphorus (2.5-4.5) mg/dL Total Protein (6.3-8.2) g/dL Albumin (3.5-5.0) g/dL Assessment and Plan Plan: Assessment and plan #1 coronary artery disease and severe mitral regurgitation, status post mitral valve repair and coronary artery bypass grafting surgery times 2. #2 hyperlipidemia #3 diabetes #4 hypertension Plan We will continue the current medications the patient is on, patient will be transferred to inpatient rehab today, we will continue to follow him there. DNP note has been reviewed, I agree with a documented findings and plan of care. Patient was seen and examined.
[2018-02-14] MEDS ORDERED: AMIODARONE 200 MG TAB PO SCH (09:00)
--- NOTE | 2018-02-17 16:24 | CDI ---
Last Revision, August 2017 Documentation Clarification Form Date: 02/17/18 From: Yazmin Sen Phone: If you have a question regarding this query, please conact Consuelo Ng at [phone] between 8am and 5pm. Admit Date: 01/27/2018 10:09:00 PM Patient Name: Bird Maria Visit Number: [id number] Discharge Date: 02/13/18 ATTENTION: The Clinical Documentation Specialists (CDI) and [facility] Coding Staff appreciate your assistance in clarifying documentation. Please respond to the clarification below the line at the bottom and electronically sign. The CDI & [facility] Coding staff will review the response and follow-up if needed. Please note: Queries are made part of the Legal Health Record. If you have any questions, please contact the author of this message via ITS. Dr. Fabricio Spicer CHF is documented in Dr. Marte progress notes beginning on 02/04. History/Risk Factors: Patient was admitted for CAD, mitral valve regurgitation and atrial fibrillation and had a 2 vessel bypass graft, repair of the mitral valve, MAZE procedure and atrial appendage clip ligation. Clinical Indicators: Pleural effusion and pulmonary edema. VS/Pulse OX: 02/04 T. 98.2, P. 69 - 78 , R. 15 - 31, BP 94/59 - 117/68, Pulse Ox. 91 - 98 BNP: 1200 Chest X Ray: 02/04 - 1. Improving CHF with residual pulmonary vascular congestion. 2. Improvement in the right pleural effusion. Residual trace effusions with adjacent atelectasis and/or consolidation are suspected. Treatment: IV Lasix In your professional opinion, can you please clarify the acuity and type of CHF if known? Systolic Heart Failure: Acute Chronic Acute on Chronic Diastolic Heart Failure: Acute Chronic Acute on Chronic Systolic & Diastolic Heart Failure: Acute Chronic Acute on Chronic Heart Failure Unable to Determine Other, please specify MTDD
== END 2018-02-13 11:44 | DRG 219 ==
LOC: 6SEL 22:09 → 6ICU 01-30 06:14 → 6SEL 02-05 12:09
PROVIDERS: ADMIT Family Medicine; ATTEND Thoracic Surgery (Cardiothoracic Vascular Surgery)
PROC: 02L70CK Occlusion of Left Atrial Appendage with Extraluminal Device, Open Approach (ICD-10-PCS; 2018-01-30)
PROC: 5A1221Z Performance of Cardiac Output, Continuous (ICD-10-PCS; 2018-01-30)
PROC: 021109W Bypass Coronary Artery, Two Arteries from Aorta with Autologous Venous Tissue, Open Approach (ICD-10-PCS; principal; 2018-01-30 08:00)
PROC: 02QG0ZZ Repair Mitral Valve, Open Approach (ICD-10-PCS; 2018-01-30 08:00)
PROC: 02580ZZ Destruction of Conduction Mechanism, Open Approach (ICD-10-PCS; 2018-01-30 08:00)
PROC: 06BP4ZZ Excision of Right Saphenous Vein, Percutaneous Endoscopic Approach (ICD-10-PCS; 2018-01-30 08:00)
PROC: B54DZZZ Ultrasonography of Bilateral Lower Extremity Veins (ICD-10-PCS; 2018-02-03)
DX: I25.10 Atherosclerotic heart disease of native coronary artery without angina pectoris (principal); N17.0 Acute kidney failure with tubular necrosis; I50.21 Acute systolic (congestive) heart failure; E87.1 Hypo-osmolality and hyponatremia; J98.11 Atelectasis; I13.0 Hypertensive heart and chronic kidney disease with heart failure and stage 1 through stage 4 chronic kidney disease, or unspecified chronic kidney disease; D50.0 Iron deficiency anemia secondary to blood loss (chronic); D72.829 Elevated white blood cell count, unspecified; E11.69 Type 2 diabetes mellitus with other specified complication; E66.01 Morbid (severe) obesity due to excess calories; Z68.33 Body mass index [BMI] 33.0-33.9, adult; E78.5 Hyperlipidemia, unspecified; E83.39 Other disorders of phosphorus metabolism; E86.1 Hypovolemia; G25.81 Restless legs syndrome; I08.1 Rheumatic disorders of both mitral and tricuspid valves; I48.0 Paroxysmal atrial fibrillation; I65.22 Occlusion and stenosis of left carotid artery; J44.9 Chronic obstructive pulmonary disease, unspecified; R33.9 Retention of urine, unspecified; I95.89 Other hypotension; K21.9 Gastro-esophageal reflux disease without esophagitis; K59.00 Constipation, unspecified; M19.90 Unspecified osteoarthritis, unspecified site; M81.0 Age-related osteoporosis without current pathological fracture; N40.1 Benign prostatic hyperplasia with lower urinary tract symptoms; H26.9 Unspecified cataract; J45.20 Mild intermittent asthma, uncomplicated; N18.2 Chronic kidney disease, stage 2 (mild); G47.33 Obstructive sleep apnea (adult) (pediatric); R11.0 Nausea; T50.2X5A Adverse effect of carbonic-anhydrase inhibitors, benzothiadiazides and other diuretics, initial encounter; Y92.239 Unspecified place in hospital as the place of occurrence of the external cause; Z79.899 Other long term (current) drug therapy; Z79.84 Long term (current) use of oral hypoglycemic drugs; Z96.652 Presence of left artificial knee joint; Z95.5 Presence of coronary angioplasty implant and graft; Z85.828 Personal history of other malignant neoplasm of skin; Z90.3 Acquired absence of stomach [part of]; Z87.891 Personal history of nicotine dependence; Z83.3 Family history of diabetes mellitus; Z82.5 Family history of asthma and other chronic lower respiratory diseases; Z82.49 Family history of ischemic heart disease and other diseases of the circulatory system
CPT/HCPCS: 71045; 71046; 76770; 80048; 80053; 80061; 80074; 81001; 81003; 82330; 82533; 82728; 82805; 83036; 83540; 83550; 83605; 83735; 83880; 83930; 83935; 83970; 84100; 84300; 84443; 84484; 85025; 85027; 85520; 85610; 85730; 86850; 86891; 86900; 86901; 86920; 87070; 87086; 88305; 88311; 93308; 93880; 93922; 93970; 94002; 94003; 94150; 94640; 94660; 94760

== ENCOUNTER → 2018-04-01 | Outpatient (CLI) | payer MEDICARE ==
--- NOTE | 2018-04-01 16:35 | XR ---
EXAMINATION TYPE: XR chest 2V DATE OF EXAM: 04/01/2018 COMPARISON: Prior chest x-ray February 13, 2018 HISTORY: Shortness of breath with exertion. TECHNIQUE: Frontal and lateral views of the chest are obtained. FINDINGS: The cardiac silhouette size is stable and mildly enlarged with closure device along superi or left aspect redemonstrated. Overlying sternal wires are again seen. There is persistent small righ t pleural effusion with associated right basilar atelectasis and/or infiltrate. There is persistent p atchy left basilar atelectasis and/or infiltrate with slightly smaller left pleural effusion redemons trated. Upper lungs remain clear without pneumothorax. Surgical changes right humeral head is partial ly imaged. IMPRESSION: Persistent cardiomegaly with small right greater than left pleural effusions with right greater than left bibasilar atelectasis and/or infiltrate all redemonstrated.
[2018-04-01 16:53] LABS: Anisocytosis Slight; HCT 32.5 % (39.0-53.0); HGB 10.1 gm/dL (13.0-17.5); Hypochromasia Moderate; MCH 28.1 pg (25.0-35.0); MCV 90.7 fL (80.0-100.0); Platelet Count 267 k/uL (150-450); RBC 3.58 m/uL (4.30-5.90); RDW 18.3 % (11.5-15.5)
[2018-04-01 17:04] LABS: Albumin 3.7 g/dL (3.5-5.0); Potassium 5.1 mmol/L (3.5-5.1); Total Bilirubin 1.2 mg/dL (0.2-1.3); Total Protein 6.8 g/dL (6.3-8.2)
== END | disposition home or self-care (01) ==
LOC: RADXRMAIN 16:08
PROVIDERS: ATTEND Internal Medicine Clinical Cardiac Electrophysiology
DX: J98.11 Atelectasis (principal); I42.9 Cardiomyopathy, unspecified; I25.10 Atherosclerotic heart disease of native coronary artery without angina pectoris; I50.9 Heart failure, unspecified; I48.91 Unspecified atrial fibrillation; I51.7 Cardiomegaly; J90 Pleural effusion, not elsewhere classified; Z95.1 Presence of aortocoronary bypass graft
CPT/HCPCS: 36415; 71046; 80053; 84443; 85027